=== PATIENT | female | born 1960 | race Caucasian/White ===

== ENCOUNTER 2022-08-04 07:53 | Outpatient (OUT) | payer OTHER, SELFPAY | END 2022-08-04 07:54 | disposition home or self-care (01) | LOC: INF 07:53 | PROVIDERS: PCP Nurse Practitioner; Visit Provider Internal Medicine Hematology & Oncology | DX: D69.3 Immune thrombocytopenic purpura (principal) | CPT/HCPCS: G0463 ==

== ENCOUNTER 2022-08-18 07:37 | Outpatient (OUT) | payer OTHER, SELFPAY ==
--- NOTE | 2022-08-18 16:52 | PC.NURSE ---
0900: Pt. to [facility] for Lovenox education after office visit with Dr. Noonan. Video presentation and discussion provided to patient and patient's on self injections of Lovenox. Questions addressed.
== END 2022-08-18 07:38 | disposition home or self-care (01) ==
LOC: INF 07:37
PROVIDERS: PCP Nurse Practitioner; Visit Provider Internal Medicine Hematology & Oncology
DX: D69.3 Immune thrombocytopenic purpura (principal)
CPT/HCPCS: G0463

== ENCOUNTER 2022-09-15 08:31 | Outpatient (OUT) | payer OTHER, SELFPAY ==
[2022-09-15 09:07] LABS: Basophils Absolute Auto 0.1 10^3/uL (0.0-0.1); Basophils Percent Auto 0.6 % (0.2-2.0); Eosinophils Absolute Auto 0.1 10^3/uL (0.0-0.7); Eosinophils Percent Auto 0.7 % (0.9-7.0); Hematocrit 38.3 % (36.0-48.0); Hemoglobin 12.8 g/dL (12.0-16.0); Immature Granulocytes Abs Auto 0.04 10^3/uL (0.00-0.03); Immature Granulocytes Pct Auto 0.3 % (0.0-0.5); Lymphocytes Absolute Auto 4.1 10^3/uL (1.2-3.8); Lymphocytes Percent Auto 33.3 % (20.5-60.0); Mean Corpuscular HGB Conc 33.4 g/dL (29.9-35.2); Mean Corpuscular Hemoglobin 31.3 pg (26.7-34.0); Mean Corpuscular Volume 93.6 fL (81.0-99.0); Mean Platelet Volume 9.8 fL (9.5-13.5); Monocytes Absolute Auto 0.8 10^3/uL (0.3-0.8); Monocytes Percent Auto 6.8 % (1.7-12.0); Neutrophils Absolute Auto 7.1 10^3/uL (1.4-6.5); Neutrophils Percent Auto 58.3 % (43.0-75.0); Platelet Count 655 10^3/uL (150-450); Red Blood Count 4.09 10^6/uL (4.20-5.40); Red Cell Distribution Width 13.9 % (11.0-15.0); White Blood Count 12.2 10^3/uL (4.0-11.0)
== END 2022-09-15 08:32 | disposition home or self-care (01) ==
LOC: INF 08:31
PROVIDERS: PCP Nurse Practitioner; Visit Provider Internal Medicine Hematology & Oncology
DX: D69.3 Immune thrombocytopenic purpura (principal); Z86.2 Personal history of diseases of the blood and blood-forming organs and certain disorders involving the immune mechanism
CPT/HCPCS: 36415; 85025; G0463

== ENCOUNTER 2022-10-20 07:58 | Outpatient (OUT) | payer OTHER, SELFPAY ==
[2022-10-20 08:15] LABS: Basophils Percent Auto 0.3 % (0.2-2.0); Eosinophils Absolute Auto 0.1 10^3/uL (0.0-0.7); Eosinophils Percent Auto 0.8 % (0.9-7.0); Hemoglobin 14.4 g/dL (12.0-16.0); Immature Granulocytes Abs Auto 0.02 10^3/uL (0.00-0.03); Immature Granulocytes Pct Auto 0.2 % (0.0-0.5); Lymphocytes Absolute Auto 2.9 10^3/uL (1.2-3.8); Lymphocytes Percent Auto 28.6 % (20.5-60.0); Mean Corpuscular HGB Conc 32.7 g/dL (29.9-35.2); Mean Corpuscular Hemoglobin 32.5 pg (26.7-34.0); Mean Corpuscular Volume 99.3 fL (81.0-99.0); Mean Platelet Volume 9.7 fL (9.5-13.5); Monocytes Absolute Auto 0.7 10^3/uL (0.3-0.8); Monocytes Percent Auto 6.5 % (1.7-12.0); Neutrophils Absolute Auto 6.4 10^3/uL (1.4-6.5); Neutrophils Percent Auto 63.6 % (43.0-75.0); Platelet Count 380 10^3/uL (150-450); Red Blood Count 4.43 10^6/uL (4.20-5.40); Red Cell Distribution Width 15.6 % (11.0-15.0)
[2022-10-20 08:20] LABS: Erythrocyte Sedimentation Rate 54 mm/hr (<=30)
[2022-10-20 08:28] LABS: C Reactive Protein 0.2 mg/dL (<=1.0); Lactate Dehydrogenase 125 U/L (81-234)
== END 2022-10-20 07:59 | disposition home or self-care (01) ==
LOC: HEMC 07:58
PROVIDERS: PCP Nurse Practitioner; Visit Provider Internal Medicine Hematology & Oncology
DX: D69.3 Immune thrombocytopenic purpura (principal)
CPT/HCPCS: 36415; 83615; 85025; 85652; 86140; G0463

== ENCOUNTER 2022-11-23 08:56 | Outpatient (OUT) | payer OTHER, SELFPAY ==
--- NOTE | 2022-11-23 10:43 | PM.CN ---
Consult Note: HPI Data of Consult Patient: new to practice Consult date: 11/23/22 Requesting Physician: Lara Mar MD Primary Care Provider: Gayla Martinez Consult Narrative Reason for consult: low back pain Narrative: 62yof who presents for assessment. worsening low back pain that has been ongoing for years. recently underwent lumbar surgery in july 2022, which helped with radicular symptoms. still has significant low back pain. utilizes tylenol with codeine as needed. denies adverse med side effects. cc:: CC: Lara Mar MD Review of Systems ROS Status of ROS 10 or more systems reviewed and unremarkable except as noted in history and below Exam Narrative Exam Narrative: Psych-alert and oriented x 3. Attentive and appropriate, constitutionally normal, displays normal mood and affect per situation.? There are no obvious deficits in memory, reasoning, or intellect.? Skin-no obvious rashes, bruising, erythema noted to the patient's area of pain. Extremities- extremities are warm with minimal edema and palpable pulses. Lumbar-no significant tenderness to palpation noted in the lumbar spine and paraspinal musculature.? Pain is elicited with extension, and lateral rotation of the lumbar spine. Range of motion is slightly diminished with these motions due to pain. Facet loading maneuvers are positive bilaterally and do appear to be concordant with the patient's normal complaints of pain.? Coordination remains intact.? Gait remains non-antalgic. Assessment and Plan Assessment and Plan (1) Lumbar stenosis with neurogenic claudication: (2) Lumbar spondylosis: Plan 62yof who presents for evaluation. failed conservative measures, as reviewed. given symptoms and recent surgery, will have her engage in aqua therapy twice weekly for 4-6 weeks. she is in agreement. medications reviewed, no changes at this time. follow up in 6-8 weeks.
== END 2022-11-23 08:57 | disposition home or self-care (01) ==
LOC: PM 08:56
PROVIDERS: PCP Nurse Practitioner; Visit Provider Anesthesiology
DX: M47.816 Spondylosis without myelopathy or radiculopathy, lumbar region (principal); M48.062 Spinal stenosis, lumbar region with neurogenic claudication
CPT/HCPCS: G0463

== ENCOUNTER 2022-11-25 13:33 | Outpatient (RCR) | payer OTHER, SELFPAY | END 2023-02-21 07:58 | disposition home or self-care (01) | LOC: PT 13:33 | PROVIDERS: PCP Nurse Practitioner; Visit Provider Anesthesiology | DX: M48.062 Spinal stenosis, lumbar region with neurogenic claudication (principal) | CPT/HCPCS: 97110; 97112; 97113; 97163; 97164; 97530 ==

== ENCOUNTER 2022-12-03 09:53 | Outpatient (OUT) | payer OTHER, SELFPAY ==
--- NOTE | 2022-12-03 | MM_ITS ---
Patient: SHELLEY VAUGHN Exam Date: 12/03/2022 : 1960 Gender:F Ordering : GAURAV Gaylaflavio Martinez [facility] Admission #: [id number] Family : Order #: [id number] CLICK HERE TO VIEW EXAM RADIOLOGY REPORT PROCEDURE: MM TOMOSYNTHESIS SCREENING BI COMPARISON: None. INDICATIONS: Screening mammogram Calculator Name NCI Breast Cancer Risk Assessment Tool 5 Year Breast Cancer Risk 1.70% Lifetime Breast Cancer Risk 7.70% Personal Breast Cancer No Personal Ovarian Cancer No Treatments None Family Cancers None LOCATION: [facility] BREAST COMPOSITION: Scattered areas fibroglandular density. FINDINGS: DIAGNOSTIC CATEGORY 2--BENIGN FINDING: RIGHT BREAST: No significant suspicious finding. Scattered benign-appearing calcifications are present. LEFT BREAST: No significant suspicious finding. Scattered benign-appearing calcifications are present. RECOMMENDATIONS: ROUTINE MAMMOGRAM AND CLINICAL EVALUATION IN 12 MONTHS. PLEASE NOTE: A NORMAL MAMMOGRAM DOES NOT EXCLUDE THE POSSIBILITY OF BREAST CANCER. A CLINICALLY SUSPICIOUS PALPABLE LUMP SHOULD BE BIOPSIED. Dictated by: Marc Munoz M.D. on 12/03/2022 at 13:35 Approved by: Marc Munoz M.D. on 12/03/2022 at 13:38
[2022-12-03 10:40] LABS: Estimated Average Glucose 117 mg/dL; Glycohemoglobin A1C 5.7 % (4.5-6.2)
== END 2022-12-03 09:54 | disposition home or self-care (01) ==
LOC: MAMMO 09:53
PROVIDERS: PCP Nurse Practitioner; Visit Provider Nurse Practitioner
DX: Z12.31 Encounter for screening mammogram for malignant neoplasm of breast (principal); E11.9 Type 2 diabetes mellitus without complications
CPT/HCPCS: 36415; 77063; 77067; 83036

== ENCOUNTER 2023-01-21 08:51 | Outpatient (OUT) | payer OTHER, SELFPAY ==
--- NOTE | 2023-01-21 09:31 | PM.CN ---
Consult Note: HPI Data of Consult Patient: known to practice within the last 3 years Requesting Physician: Lara Mar MD Primary Care Provider: Gayla Martinez Consult Narrative Reason for consult: f/u Narrative: Stephan muniz pleasant 62 year old female presents for evaluation and management of chronic back pain. Today pain 7/10 in right low back, feels like a deep ache. Patient has a hx of L3,4,5 fusion. Patient to start bone stimulator today through surgeon. Patient has found benefit to current medication regimen, no side effects. cc:: CC: Lara Mar MD Review of Systems ROS Status of ROS 10 or more systems reviewed and unremarkable except as noted in history and below Musculoskeletal Reports: back pain Meds Home Medications and Allergies Home Medications Medication Instructions Recorded Confirmed Type amitriptyline 10 mg tablet 10 mg PO DAILY 11/23/22 01/21/23 History atorvastatin 20 mg tablet 20 mg PO DAILY 11/23/22 11/23/22 History ferrous sulfate 325 mg (65 mg 325 mg PO DAILY 11/23/22 11/23/22 History iron) tablet (FeroSul) fluticasone fur. 100 mcg-umeclid 1 inh inhalation DAILY 11/23/22 11/23/22 History 62.5 mcg-vilant 25 mcg inhalat.powder (Trelegy Ellipta) lisinopril 2.5 mg tablet 2.5 mg PO DAILY 11/23/22 11/23/22 History metformin 500 mg tablet 500 mg PO BID 11/23/22 11/23/22 History tizanidine 4 mg capsule 4 mg PO BID PRN muscle spasticity 11/23/22 01/21/23 History tramadol 50 mg tablet 50 mg PO Q12H 01/21/23 01/21/23 History Allergies Allergy/AdvReac Type Severity Reaction Status Date / Time No Known Drug Allergies Allergy Verified 11/23/22 14:05 Exam Constitutional Documenting provider has reviewed patient's vital signs: yes Common normals: no apparent distress, oriented x3, healthy appearing, alert and well nourished General appearance: cooperative HENMT Common normals: normocephalic, hearing grossly normal bilaterally and moist oral mucous membranes Head and scalp: normocephalic Eye Common normals: PERRL Pupil: PERRL Neck & C-Spine Common normals: full ROM General: normal visual inspection Chest Common normals: inspection of chest normal Respiratory Common normals: normal respiratory effort, no retractions and no use of accessory muscles Back & Pelvis Lumbar spine/lower back: ROM limited and pain with ROM Other: facet loading bilateral no radiculopathy Neuro Common normals: oriented x3, CN's II-XII intact bilaterally, moves all extremities, no focal motor deficits, no sensory deficits noted and deep tendon reflexes 2+ bilaterally Sensorium/orientation: alert Motor exam: strength 5/5 throughout and no movement abnormalities noted Psych Common normals: mental status grossly normal, thought process normal, cooperative, affect normal, speech normal and activity/motor behavior normal Speech: normal speech Thought process: normal thought process Results Additional Findings Additional findings: I have checked an [place]AR[place] report on this patient today and there are no aberrancies noted in the prescribing history.?? A drug screen was completed and reviewed within the last year, and if there has not been a drug screen completed we ordered one today to monitor higher risk, state monitored pain medication use. As part of providing excellent, safe, comprehensive care, the following was completed at our patient's visit: 1. A medication reconciliation and review to ensure accurate knowledge of current/active medications, including asking our patients to inform us about any yopd-dat-dgnltpo medications or herbal remedies/nutritional supplements/alternative remedies. 2. A review to specifically ensure our patients have had annual screening for: elevated body mass index (BMI), tobacco use, screening for depression, and screening for unhealthy alcohol use. When screening is concerning, patients are provided with education and the specific recommendation to discuss the concerning health issue and treatment options with their primary care provider. Assessment and Plan Assessment and Plan (1) Chronic prescription opiate use: (2) Lumbar spondylosis: (3) Lumbar stenosis with neurogenic claudication: (4) Muscle spasm: Plan -continue current medications -increase amitriptyline to 25mg HS, patient thinks PCP just increased but she is unsure -pt to start Bone stimulator as ordered through surgeon -f/u 3 months
== END 2023-01-21 08:52 | disposition home or self-care (01) ==
LOC: PM 08:51
PROVIDERS: PCP Nurse Practitioner; Visit Provider Anesthesiology
DX: Z79.891 Long term (current) use of opiate analgesic (principal); M47.816 Spondylosis without myelopathy or radiculopathy, lumbar region; M48.062 Spinal stenosis, lumbar region with neurogenic claudication; M62.838 Other muscle spasm
CPT/HCPCS: G0463

== ENCOUNTER 2023-02-22 10:23 | Outpatient (RCR) | payer OTHER, SELFPAY | END 2023-02-23 15:14 | disposition home or self-care (01) | LOC: PT 10:23 | PROVIDERS: PCP Nurse Practitioner; Visit Provider Anesthesiology | DX: Z98.1 Arthrodesis status (principal); M41.50 Other secondary scoliosis, site unspecified ==

== ENCOUNTER 2023-03-03 15:52 | Outpatient (OUT) | payer OTHER, SELFPAY ==
--- OUTSIDE RECORDS SUMMARY | 2023-03-03 15:58 | XMS_ITS | CCD ---
Author Name Unknown Address [address] [place] [address] Organization [facility] Care Team Providers Care Stocklayer Name Role Phone ALGHOEVELINEANI MOHAMAD Attending Unavailable AICHHOLZ, LOCKSTITCH COLLAR SETTER GAYLA Primary Care Unavailable ALGHOTHANI, MOHAMAD Consulting Unavailable ALGHOTHANI, MOHAMAD Admitting Unavailable AICHHOLZ, LOCKSTITCH COLLAR SETTER GAYLA Primary Care Unavailable AICHHOLZ, LOCKSTITCH COLLAR SETTER GAYLA Admitting Unavailable AICHHOLZ, LOCKSTITCH COLLAR SETTER GAYLA Attending Unavailable AICHHOLZ, LOCKSTITCH COLLAR SETTER GAYLA Consulting Unavailable ALGHOTHANI, MOHAMAD Attending Unavailable AICHHOLZ, LOCKSTITCH COLLAR SETTER GAYLA Primary Care Unavailable ALGHOTHANI, MOHAMAD Consulting Unavailable ALGHOTHANI, MOHAMAD Admitting Unavailable ALGHOTHANI, MOHAMAD Attending Unavailable AICHHOLZ, LOCKSTITCH COLLAR SETTER GAYLA Primary Care Unavailable ALGHOTHANI, MOHAMAD Consulting Unavailable ALGHOTHANI, MOHAMAD Admitting Unavailable ALEX, INA Attending Unavailable ALEX, INA Admitting Unavailable ALEX, INA Consulting Unavailable AICHHOLZ, LOCKSTITCH COLLAR SETTER GAYLA Primary Care Unavailable AICHHOLZ, LOCKSTITCH COLLAR SETTER GAYLA Admitting Unavailable AICHHOLZ, LOCKSTITCH COLLAR SETTER GAYLA Attending Unavailable AICHHOLZ, LOCKSTITCH COLLAR SETTER GAYLA Consulting Unavailable AICHHOLZ, LOCKSTITCH COLLAR SETTER GAYLA Primary Care Unavailable AICHHOLZ, LOCKSTITCH COLLAR SETTER GAYLA Admitting Unavailable AICHHOLZ, LOCKSTITCH COLLAR SETTER GAYLA Attending Unavailable AICHHOLZ, LOCKSTITCH COLLAR SETTER GAYLA Consulting Unavailable AICHHOLZ, LOCKSTITCH COLLAR SETTER GAYLA Primary Care Unavailable DANTE HAND Attending Unavailable ALEX, INA Attending Unavailable ALEX, INA Attending Unavailable AICHHOLZ, GAYLA Attending Unavailable Tylor KAMARA MD, Delfino Freeman Attending U kasey Snider III, MD, Delfino Freeman Attending U kasey Mar MD, Lara Amos Attending Unavailable King MICHELLE, Dasha Pedro Attending Unavailab le Edilson PA-C, Dasha Pedro Attending Unavailab le Edilson PA-C, Dasha Pedro Attending Unavailab le Edilson PA-C, Dasha Pedro Attending Unavailab le Edilson PA-C, Dasha Pedro Attending Unavailab rose Snider III, MD, Delfino Freeman Attending U navailable Tylor KAMARA MD, Delfino Freeman Admitting U navailable Edilson PA-C, Dasha Pedro Attending Unavailab le Edilson PA-C, Dasha Pedro Attending Unavailab le Edilson PA-C, Dasha Pedro Attending Unavailab le Edilson PA-C, Dasha Pedro Attending Unavailab le Edilson PA-C, Dasha Pedro Attending Unavailab rose Snider III, MD, Delfino Freeman Attending U navailable Allergies Allergy Classification Reported Allergen(s) Allergy Type Date of Onset Reaction(s) Facility (1 source) pregabalin; Translations: [PREGABALIN] Drug Allergy [facility] Repository (1 source) No Known Medication Allergies; Translations: [No Known Medication Allergies] Propensity to adverse reactions to drug (disorder) [facility] Repository Problems Active Problems Problem Classification Problem Date Documented Da te Episodic/Chronic Diabetes mellitus without complication (6 sources) Type 2 diabetes mellitus without complications; Translations: [Other specified diabetes mellitus without complications] Onset: 11-05-2021 Chronic Essential hypertension (6 sources) Essential (primary) hypertension; Translations: [ESSENTIAL PRIMARY HYPERTENSION] Onset: 06-10-2022 Chronic Pleurisy; pneumothorax; pulmonary collapse (4 sources) Pleural effusion, not elsewhere classified; Translations: [PLEURAL EFFUSION NEC] Onset: 05-08-2022 Episodic Unclassified (3 sources) OTH PERICARDIAL EFFUSION NONINFLAMM; Translations: [OTH PERICARDIAL EFFUSION NONINFLAMM] Onset: 01-08-2022 Unclassified (1 source) Other pericardial effusion (noninflammatory); Translations: [Other pericardial effusion (noninflammatory)] Onset: 06-10-2022 Past or Other Problems Problem Classification Problem Date Documented Da te Episodic/Chronic Other nutritional; endocrine; and metabolic disorders (4 sources) Abnormal weight loss; Translations: [ABNORMAL WEIGHT LOSS] Onset: 08-04-2021 Episodic Vladimir-; endo-; and myocarditis; cardiomyopathy (except that caused by tuberculosis or sexually transmitted disease) (4 sources) Pericardial effusion (noninflammatory); Translations: [PERICARDIAL EFFUSION NONINFLAMM] Onset: 10-16-2021 Episodic Spondylosis; intervertebral disc disorders; other back problems (2 sources) Spinal stenosis, lumbar region with neurogenic claudication; Translations: [Spinal stenosis, lumbar region with neurogenic claudication] Onset: 08-21-2022 Episodic Unclassified (1 source) OTH PERICARDIAL EFFUSION NONINFLAMM; Translations: [OTH PERICARDIAL EFFUSION NONINFLAMM] Onset: 01-05-2022 Unclassified (1 source) Other pericardial effusion (noninflammatory); Translations: [Other pericardial effusion (noninflammatory)] Onset: 01-19-2023 Results Test Name Value Interpretation Reference Range Facility Neurosurgery Office/Clinic N zain 02-08-2023 Neurosurgery Office/Clinic Note Chief Complaint Back follow up imaging review History of Present Illness The patient is a pleasant 63-year-old female with history of diabetes, COPD, and chronic nicotine abuse who returns to the neurosurgical office approximately 6 months status post L3-5 decompression and posterior spinal fusion with instrumentation utilizing Medtronic Osteogrip screws, interbody arthrodesis L4-5 using TLIF technique and Medtronic elevate expandable cage. Small kit infuse bone morphogenetic protein used at the time of surgery. Surgery was completed 08/21/[address] nSider on behalf of of intractable lumbar radiculopathy and neurogenic claudication related to severe spinal stenosis L3-4 and L4-5 with degenerative spondylolisthesis L4-5 with instability. Postoperative x-rays 1 month following surgery revealed suspicion of L5 pedicle fractures which was then confirmed with CT. The patient was last seen in the neurosurgical office 12/22/2022 and returns today for ongoing clinical and imaging surveillance. She has recently undergone updated CT lumbar spine. Results detailed below. At this time, the patient reports that she is doing relatively well. She continues to report low back pain which is more right-sided than left and typically with standing in the kitchen at the stove or countertop. This improves quickly with sitting. She also notes burning/aching within the gluteal areas and lateral hips which is relatively constant though can increase somewhat with activity. She denies lower extremity radicular pain, numbness, paresthesia or overt weakness. She continues to walk with the assistance of a cane when outside of her home though is able to walk without a cane within her home. She denies any changes to bowel or bladder habits; no saddle paresthesia. The patient has been completing aqua therapy twice a week and traditional therapy once weekly with overall good benefit. She reports that she has utilized all sessions and requires a another physical therapy order. She continues to utilize her LSO brace with sitting, standing and walking in addition to her electromagnetic bone stimulator. She utilizes tramadol and tizanidine as provided by pain management ([facility] pain management) only as needed and has not yet returned to NSAID medication. She continues to utilize nicotine and understands the deleterious effects of nicotine on her overall health and bony arthrodesis. Recent imaging (provider interpretation): CT lumbar spine 02/03/2023 at [facility] reveals evidence of L3-5 posterior spinal fusion with instrumentation and L4-5 interbody fusion. No evidence of hardware haloing, fracture or pullout. Fixed anterior listhesis L4-5 which is unchanged. Bilateral L5 pedicle fractures appear well-healed. There appears to be a fair amount more consolidation of posterior lateral arthrodesis compared to prior imaging 12/17/2022 and 10/14/2022. Moderate left L5-S1 neuroforaminal stenosis secondary to bony spurring. L1-2 reveals a central/left paracentral disc osteophyte complex with moderate central stenosis. L2-3 reveals a central disc osteophyte complex with moderate central stenosis. CT lumbar spine 12/17/2022 reveals evidence of L3-5 posterior spinal fusion with instrumentation and L4-5 interbody fusion. No evidence of hardware fracture or pullout. L5 pedicle fractures appear to be healing appropriately without significant evidence of fracture line. Fair amount of posterior lateral arthrodesis though there are some areas of incomplete consolidation. Retrolisthesis L1-2 and L2-3 with disc spur complex at each level unchanged from prior imaging. CT lumbar spine 10/14/2022 at [facility] reveals evidence of L3-5 decompression and posterior spinal fusion with instrumentation and L4-5 interbody fusion. No evidence of hardware fracture or pullout though there is evidence of bilateral L5 pedicle fractures without significant displacement. Also question of L4 transverse process fractures. There is a fair amount of posterior lateral arthrodesis considering her 7-week postoperative. Lumbar x-rays 09/18/2022 reveal evidence of L3-5 decompression and posterior spinal fusion with instrumentation and L4-5 interbody fusion. No evidence of hardware fracture, pullout or overt healing though there does appear to be slight abnormal angulation of the L5 pedicles which could point towards pedicle fracture. X-rays of the sacrum/coccyx 09/18/2022 reveal no evidence of sacral or coccygeal fracture. Evidence of L3-5 decompression and posterior spinal fusion with instrumentation and interbody fusion at L4-5. No overt hardware concern or abnormality. [1] Review of Systems Constitutional: [No fevers, chills, sweats] Eye: [No recent visual problems] ENMT: [No ear pain, nasal congestion, sore throat] Respiratory: [No shortness of breath, cough] Cardiovascular: [No Chest pain, palpitations, syncope] Gastrointestinal: [No nausea, vomiting, diarrhea, bowel incontinence] Genitourinary: [No hematuria, bladder inc (more content not included)... Normal [facility] Office Visiton 01-19-2023 Follow-up visit [id number] James López 1960 F Date Provider Department Center 01/19/2023 [facility] Family History Problem Relation Age of Onset Other Mother Heart attack Father Other Father Other Father Other Maternal Grandmother Family Status - Relation Status Age at Mother Father Maternal Grandmother Level of Service:[address] [place] OFFICE/OUTPATIENT ESTABLISHED LOW MDM 20-29 MIN Reason for Visit and Comments: Follow-up [607423] Hypertension [758311] Normal [facility] Neurosurgery Office/Clinic N oteon 12-22-2022 Neurosurgery Office/Clinic Note Chief Complaint back follow up History of Present Illness The patient is a pleasant 62-year-old female with history of diabetes, COPD, and chronic nicotine abuse who returns to the neurosurgical office approximately 4 months status post L3-5 decompression and posterior spinal fusion with instrumentation utilizing Medtronic Osteogrip screws, interbody arthrodesis L4-5 using TLIF technique and Medtronic elevate expandable cage. Small kit infuse bone morphogenetic protein used at the time of surgery. Surgery was completed 08/21/[address] Snider on behalf of of intractable lumbar radiculopathy and neurogenic claudication related to severe spinal stenosis L3-4 and L4-5 with degenerative spondylolisthesis L4-[address] of the lumbar spine completed 10/14/2022 due to ongoing prominent postoperative lumbar pain revealed presence of bilateral L5 pedicle fractures without displacement. She was last seen in the neurosurgical office 11/26/2022 and returns today having undergone updated CT lumbar spine. Results detailed below. At this time, the patient feels that she is doing fairly well. She continues to report low back pain which is most prominent when standing in the kitchen at her countertops. When doing this activity, she finds that she cannot stand for more than 3 or so minutes at a time. Once she sits down for approximately 10 minutes or so, pain resolves to baseline. She also notes some tightness/achiness in the lateral hips. She is most comfortable with sitting or laying down, particularly laying on her side with knees bent. She denies lower extremity radicular pain, numbness, paresthesia or overt weakness. She continues to walk with the assistance of a cane. She denies any changes to bowel or bladder habits; no saddle paresthesia. Since the time of her last visit, she has initiated water therapy despite recommendations from this office to hold on any therapy modalities until after most recent imaging could be completed and reviewed. She has been utilizing aqua therapy 3 times per week with good benefit. Per the patient, she is planned to transition into machine type physical therapy once a week in addition to aqua therapy 2 times per week. She follows with [facility] pain management which is a transition from [facility] pain management group. She continues to smoke cigarettes and understands the deleterious effects of nicotine on her overall health and bony arthrodesis. Recent imaging (provider interpretation): CT lumbar spine 12/17/2022 reveals evidence of L3-5 posterior spinal fusion with instrumentation and L4-5 interbody fusion. No evidence of hardware fracture or pullout. L5 pedicle fractures appear to be healing appropriately without significant evidence of fracture line. Fair amount of posterior lateral arthrodesis though there are some areas of incomplete consolidation. Retrolisthesis L1-2 and L2-3 with disc spur complex at each level unchanged from prior imaging. CT lumbar spine 10/14/2022 at [facility] reveals evidence of L3-5 decompression and posterior spinal fusion with instrumentation and L4-5 interbody fusion. No evidence of hardware fracture or pullout though there is evidence of bilateral L5 pedicle fractures without significant displacement. Also question of L4 transverse process fractures. There is a fair amount of posterior lateral arthrodesis considering her 7-week postoperative. Lumbar x-rays 09/18/2022 reveal evidence of L3-5 decompression and posterior spinal fusion with instrumentation and L4-5 interbody fusion. No evidence of hardware fracture, pullout or overt healing though there does appear to be slight abnormal angulation of the L5 pedicles which could point towards pedicle fracture. X-rays of the sacrum/coccyx 09/18/2022 reveal no evidence of sacral or coccygeal fracture. Evidence of L3-5 decompression and posterior spinal fusion with instrumentation and interbody fusion at L4-5. No overt hardware concern or abnormality. [1] Review of Systems Constitutional: [No fevers, chills, sweats] Eye: [No recent visual problems] ENMT: [No ear pain, nasal congestion, sore throat] Respiratory: [No shortness of breath, cough] Cardiovascular: [No Chest pain, palpitations, syncope] Gastrointestinal: [No nausea, vomiting, diarrhea, bowel incontinence] Genitourinary: [No hematuria, bladder incontinence] Physical Exam Vitals & Measurements BP: 124/70 SpO2: 96 HT: 167.5 cm WT: 63.7 kg WT: 63.7 kg (Dosing) BMI: 22.7 Additional Vitals BP Position/Location: Sitting, Left arm The patient is pleasant, conversing, answering questions and following commands easily. Alert and oriented. Speech and manner are appropriate. The patient demonstrates normal respiratory effort She presents in [facility] brace with proper fit and alignment. This was removed at the time of today's visit for incision evaluation. Lumbosacral incision appears well-healed and without erythema, edema, drainage or warmth. She notes mild tenderness (more content not included)... Normal [facility] Neurosurgery Office/Clinic N oteon 11-26-2022 Neurosurgery Office/Clinic Note Chief Complaint Back f/u -imaging-OR on 08/21/22 History of Present Illness The patient is a pleasant 62-year-old female with history of diabetes, COPD, and chronic nicotine abuse who returns to the neurosurgical office for a postoperative visit. She is approximately 12-13 weeks status post L3-5 decompression and posterior spinal fusion with instrumentation utilizing Medtronic Osteogrip screws, interbody arthrodesis L4-5 using TLIF technique and Poachable elevate expandable cage. Small kit infuse bone morphogenetic protein used at the time of surgery. Surgery was completed 08/21/[address] Snider on behalf of of intractable lumbar radiculopathy and neurogenic claudication related to severe spinal stenosis L3-4 and L4-5 with degenerative spondylolisthesis L4-5 with instability. Most recent CT of the lumbar spine completed 10/14/2022 due to ongoing prominent postoperative lumbar pain revealed presence of bilateral L5 pedicle fractures without displacement. She was last seen in the neurosurgical office 10/15/2022 and returns today for ongoing postoperative surveillance. She was planned to undergo repeat CT lumbar spine prior to today's visit though unfortunately this was denied by insurance. Currently, the patient reports ongoing low back pain which she describes as a 4/10 on the pain scale. This exacerbates and becomes particularly bothersome with standing still such as at her stove to make a meal. When this happens, she will typically attempt to sit down with pain resolving to baseline after approximately 10 to 15 minutes. She notes some increase in pain when walking though this is less severe than standing still. She is able to walk around the grocery store with a small cart without severe difficulty. She is relatively comfortable sitting and laying albeit with some persistent low back pain. She notes occasional short-lived pain in the legs though otherwise reports resolution of lower extremity pain, numbness and paresthesia. She denies any changes to bowel or bladder habits; no saddle paresthesia. The patient continues to smoke which she understands is deleterious to bony arthrodesis as well as her overall health. The patient reports that she recently transferred pain management care from [facility] to [facility]. Per the patient, they eventually would like her to initiate hot water physical therapy though only after receiving clearance from this office. Recent imaging (provider interpretation): CT lumbar spine 10/14/2022 at [facility] reveals evidence of L3-5 decompression and posterior spinal fusion with instrumentation and L4-5 interbody fusion. No evidence of hardware fracture or pullout though there is evidence of bilateral L5 pedicle fractures without significant displacement. Also question of L4 transverse process fractures. There is a fair amount of posterior lateral arthrodesis considering her 7-week postoperative. Lumbar x-rays 09/18/2022 reveal evidence of L3-5 decompression and posterior spinal fusion with instrumentation and L4-5 interbody fusion. No evidence of hardware fracture, pullout or overt healing though there does appear to be slight abnormal angulation of the L5 pedicles which could point towards pedicle fracture. X-rays of the sacrum/coccyx 09/18/2022 reveal no evidence of sacral or coccygeal fracture. Evidence of L3-5 decompression and posterior spinal fusion with instrumentation and interbody fusion at L4-5. No overt hardware concern or abnormality. [1] Review of Systems Constitutional: [No fevers, chills, sweats] Eye: [No recent visual problems] ENMT: [No ear pain, nasal congestion, sore throat] Respiratory: [No shortness of breath, cough] Cardiovascular: [No Chest pain, palpitations, syncope] Gastrointestinal: [No nausea, vomiting, diarrhea, bowel incontinence] Genitourinary: [No hematuria, bladder incontinence] Physical Exam Vitals & Measurements BP: 130/84 HT: 167.5 cm WT: 63.7 kg WT: 63.7 kg (Dosing) BMI: 22.7 Additional Vitals BP Position/Location: Sitting, Right arm The patient is pleasant, conversing, answering questions and following commands easily. Alert and oriented. Speech and manner are appropriate. The patient demonstrates normal respiratory effort She presents in [facility] lock brace with proper fit and alignment. This was removed at the time of today's visit for incision evaluation. Lumbosacral incision appears well-healed and without erythema, edema, drainage or warmth. She notes mild tenderness to palpation of the upper to mid vladimir-incisional area/lumbar spine tender as well as throughout the paraspinal musculature. She finds tenderness to palpation throughout the gluteal muscles as well as the ischial tuberosity. Lower extremity motor exam reveals 5/5 strength, symmetric bilaterally. Lower extremity deep tendon reflexes 2+ at the patella, 1+ at the Achilles, symmetric bilaterally. No clonus noted bilaterally. The patient reports intact light touch sensation throughout the lower extre (more content not included)... Normal [facility] Neurosurgery Office/Clinic N zain 10-15-2022 Neurosurgery Office/Clinic Note Chief Complaint post op 08/21/22 L3-5 decompression & spinal fusion History of Present Illness The patient is a pleasant 62-year-old female with history of diabetes, COPD, and chronic nicotine abuse who returns to the neurosurgical office for a postoperative visit. She is approximately 7 weeks status post L3-5 decompression and posterior spinal fusion with instrumentation utilizing Medtronic Osteogrip screws, interbody arthrodesis L4-5 using TLIF technique and Medtronic elevate expandable cage. Small kit infuse bone morphogenetic protein used at the time of surgery. Surgery was completed 08/21/[address] Snider on behalf of of intractable lumbar radiculopathy and neurogenic claudication related to severe spinal stenosis L3-4 and L4-5 with degenerative spondylolisthesis L4-5 with instability. Currently, the patient reports resolution of lower extremity pain, numbness and paresthesia though reports ongoing low back pain which is most prominent with standing and walking. She is relatively comfortable with sitting or laying down. She admits to laying on her couch for a majority of the time though does get up to move around such as going to the bathroom or making a small meal. She has been driving only short distances to the grocery store or the pharmacy though typically relies on rides for longer distances such as to her doctors appointments. She has been utilizing her brace only on occasion as she finds this rather constricting and induces her claustrophobia. That being said, as she predominately restricts herself to lying on the couch (patient has not required to wear brace when laying down) she does not feel that she has spent a lot of excess time out of her brace. She denies any incisional issues such as redness, swelling, warmth or drainage. She is eating fairly well and denies nausea or vomiting. She denies any changes to bowel or bladder habits; no saddle paresthesia. She denies pain, swelling, warmth or redness in the posterior calves. She continues to smoke which she understands is deleterious to bony arthrodesis as well as her overall health. Recent imaging (provider interpretation): CT lumbar spine 10/14/2022 at [facility] reveals evidence of L3-5 decompression and posterior spinal fusion with instrumentation and L4-5 interbody fusion. No evidence of hardware fracture or pullout though there is evidence of bilateral L5 pedicle fractures without significant displacement. Also question of L4 transverse process fractures. There is a fair amount of posterior lateral arthrodesis considering her 7-week postoperative. Lumbar x-rays 09/18/2022 reveal evidence of L3-5 decompression and posterior spinal fusion with instrumentation and L4-5 interbody fusion. No evidence of hardware fracture, pullout or overt healing though there does appear to be slight abnormal angulation of the L5 pedicles which could point towards pedicle fracture. X-rays of the sacrum/coccyx 09/18/2022 reveal no evidence of sacral or coccygeal fracture. Evidence of L3-5 decompression and posterior spinal fusion with instrumentation and interbody fusion at L4-5. No overt hardware concern or abnormality. Review of Systems Constitutional: [No fevers, chills, sweats] Eye: [No recent visual problems] ENMT: [No ear pain, nasal congestion, sore throat] Respiratory: [No shortness of breath, cough] Cardiovascular: [No Chest pain, palpitations, syncope] Gastrointestinal: [No nausea, vomiting, diarrhea, bowel incontinence] Genitourinary: [No hematuria, bladder incontinence] Physical Exam Vitals & Measurements HR: 105 (Peripheral) BP: 124/66 SpO2: 96 HT: 167.5 cm WT: 64.9 kg WT: 64.9 kg (Dosing) BMI: 23.13 Additional Vitals BP Position/Location: Sitting, Right arm The patient is pleasant, conversing, answering questions and following commands easily. Alert and oriented. Speech and manner are appropriate. The patient demonstrates normal respiratory effort Lumbosacral incision appears well-healed and without erythema, edema, drainage or warmth. She denies tenderness to palpation of the vladimir-incisional area or lumbosacral spine though finds to be tender to palpation throughout the paraspinal musculature at the lumbosacral junction and gluteal muscles as well as laterally to the hips. Lower extremity motor exam reveals 5/5 strength, symmetric bilaterally. Lower extremity deep tendon reflexes 2+ at the patella, 1+ at the Achilles, symmetric bilaterally. No clonus noted bilaterally. The patient reports intact light touch sensation throughout the lower extremities, symmetric bilaterally. Straight leg raise leads to tension in the gluteal areas and lateral calves of the ipsilateral leg. No redness, warmth, swelling or tenderness to palpation of the bilateral calves. Gait is slightly guarded with decreased uday and stride length. Able to perform gait exam without ambulation assistance device. Assessment/Plan 1. Lumbar stenosis with neurogenic claudication Ordered: CT Spine Lumbar w/o (more content not included)... Normal [facility] Provider Letteron 10-15-2022 Provider Letter [facility] [address], [place], [id number] [phone] Date: 10/15/2022 17:05:57 To Whom It May Concern: This is to verify that Stephan López was under our care on 10/15/2022 16:00:00. Stated patient underwent an L3-5 posterior spinal fusion on 08/21/22 with instrumentation utilizing Medtronic osteogrip titanium screws. If you have any questions or concerns please call our office at [phone]. Thank you, King MICHELLE, Dasha Mott [facility] Neurosurgery Office/Clinic N zain 09-16-2022 Neurosurgery Office/Clinic Note Chief Complaint Patient is being seen for a post operative visit. History of Present Illness The patient is a follow-up 62-year-old female with history of diabetes, COPD, and chronic nicotine abuse who returns to the neurosurgical office for a postoperative visit. She is nearly 4 weeks status post L3-5 decompression and posterior spinal fusion with instrumentation utilizing Medtronic Osteogrip screws, interbody arthrodesis L4-5 using TLIF technique and Medtronic elevate expandable cage. Surgery was completed 08/21/[address] Snider on behalf of of intractable lumbar radiculopathy and neurogenic claudication related to severe spinal stenosis L3-4 and L4-5 with degenerative spondylolisthesis L4-5 with instability. The patient currently notes ongoing lumbosacral pain with radiation into the bilateral gluteal areas and lateral hips. On occasion this will radiate into the left anterior thigh which she describes as sometimes painful but other times somewhat numb. She denies any right lower extremity radicular pain. She denies overt weakness of the lower extremities though finds that she is somewhat limited in her walking and activity due to pain in the low back and hips. She does get up and go to the bathroom frequently as well as let her dog inside and outside. She describes this as a 7/10 to 10/10 on the pain scale. She is utilizing tizanidine and codeine for pain control as the patient had trouble tolerating previous narcotic medication including tramadol. It was found that her Lyrica was also causing her to have hallucinations and therefore this has been weaned. She was sent a Medrol dose pack to her pharmacy by Dr. Snider as the patient had contacted him last week regarding significant low back pain. She noted only mild benefit from the steroid pack and currently has 1 day left of this prescription. 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 She denies chest pain, tachycardia, palpitations or shortness of breath. She denies fever, chills, nausea or vomiting. She is eating fairly well. She notes some loose bowel movements at times, denies any bowel or bladder incontinence; no saddle paresthesia. She denies incisional redness, swelling, warmth or drainage. She denies pain, swelling, warmth or redness in the posterior calves. She is following postoperative restrictions including utilizing her LSO brace as well as avoiding driving and lifting no more than 2 pounds. She unfortunately has returned to cigarette use but was unable to provide information regarding though number of cigarettes she is smoking per day. She notes that the number depends on how much I am awake. She does note that her does chide her when she smokes a cigarette as they have been informed that this significantly and negatively impacts bony fusion. Review of Systems Constitutional: [No fevers, chills, sweats] Eye: [No recent visual problems] ENMT: [No ear pain, nasal congestion, sore throat] Respiratory: [No shortness of breath, cough] Cardiovascular: [No Chest pain, palpitations, syncope] Gastrointestinal: [Positive for somewhat loose stools. No nausea, vomiting, diarrhea, bowel incontinence] Genitourinary: [No hematuria, bladder incontinence] Physical Exam Vitals & Measurements HR: 118 (Peripheral) BP: 130/84 HT: 168 cm WT: 65.2 kg WT: 65.2 kg (Dosing) BMI: 23.1 Additional Vitals BP Position/Location: Sitting, Right arm The patient is pleasant, conversing, answering questions and following commands easily. Alert and oriented. Speech and manner are appropriate. She presents in LSO cinch lock brace which was removed at the time of today's visit for incision evaluation. Chest exam reveals heart sounds S1, S2 regular rate and rhythm without murmurs, clicks, rubs or gallops. The patient demonstrates normal respiratory effort and lungs clear to auscultation bilaterally without adventitious sounds. Lumbosacral incision appears clean, dry, intact and without erythema, drainage or warmth. Very minimal vladimir-incisional edema at the superiormost aspect of her incision consistent with mild postoperative hematoma. Surgical sridevi in place. These were removed atraumatically and the incision painted with povidone iodine, dressed with sterile gauze and paper tape. She denies tenderness to palpation of the vladimir-incisional area or lumbosacral spine though finds to be tender to palpation throughout the paraspinal musculature at the lumbosacral junction and gluteal muscles as well as laterally to the hips. Lower extremity motor exam reveals 5/5 strength, symmetric bilaterally. Lower extremity deep tendon reflexes 2+ at the patella, 1+ at the Achilles, symmetric bilaterally. No clonus noted bilaterally. The patient reports intact light touch sensation throughout the lower extremities, symmetric bilaterally. Straight leg raise leads to tension in the gluteal areas and lateral calves of the ipsilateral leg. No redness (more content not included)... Normal [facility] Inpatient Clinical Summaryon 08-24-2022 Inpatient Clinical Summary [facility] [address] [place] [address] [facility] [address] [place] [address] Clinical Summary Person Information Name: Stephan López Age: 62 Years : 1960 Sex: Female PCP: Marital Status: Phone: PCP: Race: White Ethnicity: Not or Language: Occitan Visit Id: Visit Reason: Speciality: Acuity: Enc Type: Inpatient Med Service: Surgery Arrival: 08/21/2022 06:28:12 Discharge: Dispo Type: Address: [address] [place] [id number] Diagnosis: 1:Lumbar stenosis with neurogenic claudication; 2:Spondylolisthesis, lumbar region; 3:Lumbar radiculopathy; 4:Nicotine dependence Discharged To: Home Treatments: Devices/Equipment: Walker Professional Skilled Services: Special Services and Community Resources: Mode of Discharge Transportation: Discharge Orders Allergies No Known Medication Allergies Functional Status: Sensory Deficits: None History of Falls: None Mobility Assistance Prior to Admission: ADLs: Minimal assistance Gait: Steady Ambulation Assist: Assistive Device: Gait belt, Walker Special Orthopedic Devices: Brace Current Level of Assistance for Self-Care/Mobility: Cognitive Status: Orientation: Orientation Assessment Oriented x 4 Level of Consciousness: Alert Characteristics of Speech: Clear Aspiration Risk: None Affect/Behavior: Appropriate Laboratory or Other Results This Visit (last charted value for your 08/21/2022 visit) Hematology 08/22/2022 6:51 AM WBC: 20.4 x10 RBC: 3.82 x10 Neutro Auto: 79.0 % -- Normal range between ( 47.2 and 70.8 ) Lymph Auto: 11.6 % -- Normal range between ( 27.2 and 40.8 ) Elmore Auto: 8.9 % -- Normal range between ( 3.7 and 11.9 ) Eos Auto: 0.1 % -- Normal range between ( 0.0 and 5.4 ) Basophil Auto: 0.4 % -- Normal range between ( 0.0 and 1.5 ) Baso Absolute: 0.1 x10 MCV: 94.9 fL -- Normal range between ( 80.0 and 100.0 ) MCHC: 33.5 % -- Normal range between ( 31.0 and 37.0 ) Lymph Absolute: 2.4 x10 Hct: 36.3 % -- Normal range between ( 36.0 and 46.0 ) Elmore Absolute: 1.8 x10 MCH: 31.8 pg -- Normal range between ( 27.0 and 35.0 ) Neutro Absolute: 16.1 x10 Hgb: 12.2 g/dL -- Normal range between ( 12.0 and 16.0 ) Mean Platelet Volume: 9.0 fL -- Normal range between ( 6.7 and 10.6 ) Platelet: 282 x10 Eos Absolute: 0.0 x10 RDW: 13.5 % -- Normal range between ( 11.6 and 14.8 ) Chemistry 08/22/2022 6:51 AM Creatinine Lvl: 0.76 mg/dL -- Normal range between ( 0.44 and 1.03 ) BUN: 10 mg/dL -- Normal range between ( 8 and 26 ) Glucose Lvl: 116 mg/dL -- Normal range between ( 70 and 99 ) Potassium Lvl: 4.2 mmol/L -- Normal range between ( 3.4 and 4.8 ) Sodium Lvl: 134 mmol/L -- Normal range between ( 133 and 142 ) Calcium Lvl: 8.5 mg/dL -- Normal range between ( 8.5 and 10.3 ) Chloride: 101 mmol/L -- Normal range between ( 98 and 110 ) CO2: 25 mmol/L -- Normal range between ( 22 and 32 ) Anion Gap: 12 -- Normal range between ( 7 and 17 ) Estimated GFR: >60 mL/min/1.73m? BUN Crea Ratio: 13.2 -- Normal range between ( 10.0 and 20.0 ) Blood Bank 08/10/2022 10:45 AM ABO/Rh: O NEG Antibody Screen: Negative ABSC POC Testing 08/23/2022 11:59 AM POC Gluc Random: 114 mg/dL -- Normal range between ( 70 and 99 ) Diagnostic Radiology 08/21/2022 2:45 PM XR Spine Lumbosacral 4 Views + in OR: XR Spine Lumbosacral 4 Views + in OR Measurements: Height: Weight: Blood Pressure: 110 mmHg / BMI: Respiratory: Respirations: Unlabored Respiratory Symptoms: None Cardiovascular: Heart Sounds: Heart Rhythm: Regular Gastrointestinal: GI Symptoms: Bowel Sounds: Present Vital Signs: Temp Axillary: 36.5 degC Temp Temporal Artery: 36.3 degC Temp Oral: 36.6 degC Temp Rectal: Apical Heart Rate: Peripheral Pulse Rate: 95 bpm Heart Rate: 101 bpm Respiratory Rate: 18 br/min Diet Diet: Feeding Tolerance: Appetite: Good Max Assessment: 20 Procedures No Procedures Documented Immunizations No Immunizations Documented This Visit HERE ARE THE MEDICATION CHANGES THAT OCCURRED DURING YOUR HOSPITAL STAY New Medications [id number], [address], [place] [id number], [phone] ascorbic acid (ascorbic acid 500 mg oral tablet, chewable) 1 Tabs Oral (given by mouth) every 8 hours for 90 Days. Refills: 0. Last Dose: ___ cephalexin (Keflex 500 mg oral capsule) 1 Capsules Oral (given by mouth) every 6 hours standard times for 3 Days. Refills: 0. Last Dose: ___ docusate (docusate sodium 100 mg oral capsule) 1 Capsules Oral (given by mouth) 2 times a day for 7 Days. Refills: 0. Last Dose: ___ ferrous sulfate (ferrous sulfate 325 mg (65 mg elemental iron) oral tablet) 1 Tabs Oral (given by mouth) 2 times a day for 30 Days. Refills: 0. Last Dose: ___ magnesium hydroxi (more content not included)... Normal [facility] Neurosurgery Progress Noteon 08-24-2022 Neurosurgery Progress Note Objective Vitals & Measurements T: 36.9 ?C (Oral) HR: 101 (Monitored) RR: 18 BP: 96/60 SpO2: 93% HT: 168 cm HT: 168 cm WT: 73.8 kg BMI: 24.78 BMI: 24.78 Additional Vitals No qualifying data available. Lab Results Labs (Last four charted values) WBC H 20.4 (AUG 22) Hgb 12.2 (AUG 22) Hct 36.3 (AUG 22) Plt 282 (AUG 22) Na 134 (AUG 22) K 4.2 (AUG 22) CO2 25 (AUG 22) Cl 101 (AUG 22) Cr 0.76 (AUG 22) BUN 10 (AUG 22) Microbiology - Current Encounter No qualifying data available. Diagnostic Results Diagnostic Radiology XR Spine Lumbosacral 4 Views + in OR 08/21/22 17:00:[address] images of the lumbar spine on 08/21/2022 Findings: limited intraoperative fluoroscopic and CT images obtained during lumbar spine surgery done by Dr. Snider . Total fluoro time for this procedure is 6.4 seconds. This dictation is for documentation only. Please refer to the OR report for details. Possible hepatomegaly. Signed By: Isabel BOWIE, Bernice Choi Medications Inpatient ascorbic acid, 500 mg, Oral, q8hr atorvastatin, 20 mg, Oral, qAM bisacodyl, 10 mg= 1 supp, Rectal, Daily, PRN docusate sodium, 100 mg, Oral, BID ferrous sulfate, 325 mg, Oral, BID hydrALAZINE, 10 mg= 0.5 mL, IV Push, q10min, PRN Keflex, 500 mg, Oral, q6hr labetalol, 10 mg= 2 mL, IV Push, q10min, PRN lisinopril, 2.5 mg, Oral, Daily magnesium hydroxide 8% oral suspension, 30 mL, Oral, TID metFORMIN, 500 mg, Oral, BID multivitamin with minerals, 1 tabs, Oral, Daily omeprazole, 40 mg, Oral, Daily ondansetron, 4 mg= 2 mL, IV Push, q6hr, PRN pregabalin, 100 mg, Oral, BID scopolamine 1 mg/72 hr transdermal film, extended release, 1 patches, TD, q72hr sodium chloride 0.9% injectable solution, 10 mL, IV Push, As Indicated, PRN traMADol, 100 mg, Oral, q4hr, PRN traMADol, 50 mg, Oral, q4hr, PRN Assessment/Plan 1. Lumbar stenosis with neurogenic claudication 2. Spondylolisthesis, lumbar region 3. Lumbar radiculopathy 4. Nicotine dependence Orders: cephalexin, 500 mg, Oral, Cap, q6hr for 12 doses, First Dose: 08/24/22 8:00:00 EDT, Stop Date: 08/27/22 7:59:00 EDT, Dispense From Location: [address], Prophylaxis- Pre/Post-Op, 08/24/22 7:40:00 EDT scopolamine, 1 patches, TD, Film-ER, q72hr, First Dose: 08/24/22 7:40:00 EDT, Dispense From Location: [facility], 08/24/22 7:40:00 EDT traMADol, 100 mg, Oral, Tab, q4hr, PRN severe pain [7-10 on pain scale], First Dose: 08/23/22 9:04:00 EDT, Dispense From Location: [address], 08/23/22 9:04:00 EDT traMADol, 50 mg, Oral, Tab, q4hr, PRN moderate pain [4-6 on pain scale], First Dose: 08/23/22 9:04:00 EDT, Dispense From Location: [address], 08/23/22 9:04:00 EDT Surgical Drains Subjective: Patient reports that headache resolved Still has some nausea with movement or sitting up Reports that she is eating well Believes she had small bowel movement yesterday Well-controlled back pain-received 2 tramadol 1 hour ago and appears a little sleepy No radicular pain Denies paresthesias or numbness Denies headache, vomiting, chest pain, shortness of breath, GI distress Objective: General: Pleasant and cooperative but appears tired due to recent dosing of narcotic lungs: clear; performs deep nasal breathing exercises while abdomen: soft, nontender, nondistended incision: dressed, dry with old serosanguineous drainage. Surgical drain output 55 mL / 5 hours. Surgical drain is removed by surgeon and incision is clean, dry, intact with no fullness, fluctuance, erythema, induration. Fresh dressing applied by surgeon Saturations 98% and heart rate in the upper 80s Neuro: mental status: awake, alert, appropriate with normal mental status exam albeit with tired appearance cranial nerves: No ophthalmoplegia, equal facies, no evident lower cranial neuropathy motor: 5/5 power all groups gait: [] Assessment/plan: Postoperative day 3 status post decompression and stabilization L3-5 secondary to severe spinal stenosis with neurogenic claudication, intractable radiculopathy, spinal instability and spondylolisthesis Patient appears to be doing well and would like to discharge to home-she appears appropriate for this. Her is at home at all times. He suffers disability from low back issues but is functional and can perform home care. Furthermore, patient has a home health nurse friend who lives next door to her and another friend who is a pharmacist who will also be checking in on her Home-going instructions provided verbally and computer-generated education sheet Patient is grateful for care and all questions answered to her satisfaction Electronically signed by Tylor KAMARA MD, Delfino Freeman 08/24/22 07:45 EDT Normal [facility] Neurosurgery Progress Noteon 08-23-2022 Neurosurgery Progress Note Objective Vitals & Measurements T: 36.5 ?C (Oral) HR: 79 (Peripheral) RR: 17 BP: 125/70 SpO2: 97% HT: 168 cm HT: 168 cm WT: 77.3 kg BMI: 24.78 BMI: 24.78 Additional Vitals No qualifying data available. Lab Results Labs (Last four charted values) WBC H 20.4 (AUG 22) Hgb 12.2 (AUG 22) Hct 36.3 (AUG 22) Plt 282 (AUG 22) Na 134 (AUG 22) K 4.2 (AUG 22) CO2 25 (AUG 22) Cl 101 (AUG 22) Cr 0.76 (AUG 22) BUN 10 (AUG 22) Microbiology - Current Encounter No qualifying data available. Diagnostic Results Diagnostic Radiology XR Spine Lumbosacral 4 Views + in OR 08/21/22 17:00:[address] images of the lumbar spine on 08/21/2022 Findings: limited intraoperative fluoroscopic and CT images obtained during lumbar spine surgery done by Dr. Snider . Total fluoro time for this procedure is 6.4 seconds. This dictation is for documentation only. Please refer to the OR report for details. Possible hepatomegaly. Signed By: Isabel BOWIE, Bernice Choi Medications Inpatient ascorbic acid, 500 mg, Oral, q8hr atorvastatin, 20 mg, Oral, qAM bisacodyl, 10 mg= 1 supp, Rectal, Daily, PRN ceFAZolin, 2 g= 50 mL, IV Piggyback, q8hr docusate sodium, 100 mg, Oral, BID ferrous sulfate, 325 mg, Oral, BID hydrALAZINE, 10 mg= 0.5 mL, IV Push, q10min, PRN labetalol, 10 mg= 2 mL, IV Push, q10min, PRN lisinopril, 2.5 mg, Oral, Daily magnesium hydroxide 8% oral suspension, 30 mL, Oral, TID metFORMIN, 500 mg, Oral, BID multivitamin with minerals, 1 tabs, Oral, Daily omeprazole, 40 mg, Oral, Daily ondansetron, 4 mg= 2 mL, IV Push, q6hr, PRN pregabalin, 100 mg, Oral, BID sodium chloride 0.9% injectable solution, 10 mL, IV Push, As Indicated, PRN traMADol, 100 mg, Oral, q4hr, PRN traMADol, 50 mg, Oral, q4hr, PRN Assessment/Plan 1. Lumbar stenosis with neurogenic claudication 2. Spondylolisthesis, lumbar region 3. Lumbar radiculopathy 4. Nicotine dependence Orders: traMADol, 100 mg, Oral, Tab, q4hr, PRN severe pain [7-10 on pain scale], First Dose: 08/23/22 9:04:00 EDT, Dispense From Location: [id number], 08/23/22 9:04:00 EDT traMADol, 50 mg, Oral, Tab, q4hr, PRN moderate pain [4-6 on pain scale], First Dose: 08/23/22 9:04:00 EDT, Dispense From Location: [id number], 08/23/22 9:04:00 EDT Surgical Drains Subjective: Patient had on and off nausea and headache that was nonpostural. Nursing notes that it seems to worsen after she receives baclofen and this morning after receiving baclofen, she demonstrated subtle confusion approximately 1 hour after dosing Patient still eating well Mobilizing with therapy modalities without difficulties Notes elimination of preoperative pain syndrome and has only surgical pain in her lumbar region No urinary difficulties Bowel program effective No radicular pain Denies vomiting, chest pain, shortness of breath, GI distress Objective: General: Pleasant and cooperative and without distress or confusion lungs: clear; performs atelectasis deep nasal breathing exercises well abdomen: soft, nontender, nondistended incision: dressed, dry; Hemovac drain output 80 mL / 4 hours with pale serosanguineous output Neuro: mental status: awake, alert, appropriate with normal mental status exam cranial nerves: No ophthalmoplegia, equal facies, no evident lower cranial neuropathy motor: 5/5 power all groups gait: [] Assessment/plan: Postoperative day 2 status post decompression and stabilization L3-L5 for severe spinal stenosis with intractable lumbar radiculopathy and neurogenic claudication; lumbar spinal instability and lumbar spondylolisthesis Patient doing fairly well other than nonpostural headache and nausea which may be related to pain control measures-these will be adjusted Continue with standard postoperative management mobilization with physical therapy and occupational therapy with goal of safe discharge to home by tomorrow Hep-Lock; dietary intake adequate oral pain regimen-discontinue baclofen and convert Percocet therapy to tramadol Convert Hemovac drain to gravity feed in the event that there is small cerebral spinal fluid fistula which is now not evident Continue DVT prophylaxis through external devices-patient not eligible for chemoprophylaxis secondary to risk of bleeding Continue IV antibiotics until surgical drains removed for prophylaxis-anticipate this tomorrow morning Blood glucose/diabetic control is good with no hyperglycemia Vitamins and oxygen for wound healing Bowel program for postoperative narcotic-induced ileus effective Incentive spirometry educated and encouraged for postoperative atelectasis Currently anticipate discharge home tomorrow-patient has adaptive equipment such as walkers and canes at home Electronically signed by Delfino Snider III, MD 08/23/22 09:14 EDT Normal [facility] POC Glucose Randomon 023 Glucose [Mass/Vol] 114 mg/dL High 70-99 [facility] Comment on above: Performed By: #### C [id number] ####[facility] [place] [address] Glucose [Mass/Vol] 114 mg/dL High 70-99 [facility] Comment on above: Performed By: #### C [id number] #### [facility] [address] [place] [address] .eGFRon 08-22-2022 GFR/1.73 sq M.predicted MDRD (S/P/Bld) [Vol rate/Area] mL/min/{1.73_m2} Normal >=60 [facility] Comment on above: Result Comment: [facility] have implemented the eGFR calculation approach that does not have a coefficient for race and that conforms to the NKF-ASN Task Force Recommendations. Stages of Chronic Kidney Disease GFR Stage 3a Mild to moderate loss of kidney function 59 to 45 Stage 3b Moderate to severe loss of kidney function 44 to 33 Stage 4 Severe loss of kidney function 29 to 15 Stage 5 Kidney failure Less than 15 GFR calculated using the CKD-Epi Creatinine Equation (2020): eGFR = 142 X min(SCr/?, 1)? X max(SCr /?, 1)-1.200 X 0.9938Age X 1.012 [if female] Abbreviations/Units: eGFR (estimated glomerular filtration rate) = mL/min/1.73 m2 SCr (standardized serum creatinine) = mg/dL ? = 0.7 (females) or 0.9 (males) ? = -0.241 (females) or -0.302 (males) min = indicates the minimum of SCr/? or 1 max = indicates the maximum of SCr/? or 1 Age = years Performed By: #### E GFR ####[address] [address] Basic Metabolic Profileon Anion gap [Moles/Vol] 12 mmol/L Normal 7-17 [facility] Comment on above: Performed By: #### C [id number] #### [address] [address] Calcium [Mass/Vol] 8.5 mg/dL Normal 8.5-10.3 [facility] Comment on above: Performed By: #### C [id number] #### [address] [address] Chloride [Moles/Vol] 101 mmol/L Normal 98-110 [facility] Comment on above: Performed By: #### C [id number] #### [address] [address] CO2 [Moles/Vol] 25 mmol/L Normal 22-32 [facility] Comment on above: Performed By: #### C [id number] #### [address] [address] Creatinine [Mass/Vol] 0.76 mg/dL Normal 0.44-1.03 [facility] Comment on above: Performed By: #### C [id number] #### [address] [address] Glucose [Mass/Vol] 116 mg/dL High 70-99 [facility] Comment on above: Performed By: #### C [id number] #### [address] [address] Potassium [Moles/Vol] 4.2 mmol/L Normal 3.4-4.8 [facility] Comment on above: Performed By: #### C [id number] #### [address] [address] Sodium [Moles/Vol] 134 mmol/L Normal 133-142 [facility] Comment on above: Performed By: #### C [id number] #### [address] [address] Urea nitrogen [Mass/Vol] 10 mg/dL Normal 8-26 [facility] Comment on above: Performed By: #### C [id number] #### [address] [address] Urea nitrogen/Creatinine [Mass ratio] 13.2 mg/mg Normal 10.0-20.0 [facility] Comment on above: Performed By: #### C [id number] #### [address] [address] CBC w/ Diffon 08-22-2022 Erythrocyte distribution width (RBC) [Ratio] 13.5 % Normal 11.6-14.8 [facility] Comment on above: Performed By: #### C BC ####[address] [address] Hematocrit (Bld) [Volume fraction] 36.3 % Normal 36.0-46.0 [facility] Comment on above: Performed By: #### C BC ####[address] [address] Hemoglobin (Bld) [Mass/Vol] 12.2 g/dL Normal 12.0-16.0 [facility] Comment on above: Performed By: #### C BC ####[address] [address] MCH (RBC) [Entitic mass] 31.8 pg Normal 27.0-35.0 [facility] Comment on above: Performed By: #### C BC ####[address] [address] MCHC 33.5 % Normal 31.0-37.0 [facility] Comment on above: Performed By: #### C BC ####[address] [address] MCV (RBC) [Entitic vol] 94.9 fL Normal 80.0-100.0 [facility] Comment on above: Performed By: #### C BC ####[address] [address] Platelet 282 x10*3/mcL Normal 150-450 [facility] Comment on above: Performed By: #### C BC ####[address] [address] Platelet mean volume (Bld) [Entitic vol] 9.0 fL Normal 6.7-10.6 [facility] Comment on above: Performed By: #### C BC ####[address] [address] RBC 3.82 x10*6/mcL Normal 3.80-5.20 [facility] Comment on above: Performed By: #### C BC ####[address] [address] WBC 20.4 x10*3/mcL High 4.5-11.0 [facility] Comment on above: Performed By: #### C BC ####[address] [address] Diff Autoon 08-22-2022 Baso Absolute 0.1 x10*3/mcL Normal 0.0-0.2 [facility] Comment on above: Performed By: #### C [id number] #### [address] [address] Basophils/100 WBC (Bld) 0.4 % Normal 0.0-1.5 [facility] Comment on above: Performed By: #### C [id number] #### [address] [address] Eos Absolute 0.0 x10*3/mcL Normal 0.0-0.4 [facility] Comment on above: Performed By: #### C [id number] #### [address] [address] Eosinophils/100 WBC (Bld) 0.1 % Normal 0.0-5.4 [facility] Comment on above: Performed By: #### C [id number] #### [address] [address] Lymph Absolute 2.4 x10*3/mcL Normal 1.0-4.8 [facility] Comment on above: Performed By: #### C [id number] #### [address] [address] Lymphocytes/100 WBC (Bld) 11.6 % Low 27.2-40.8 [facility] Comment on above: Performed By: #### C [id number] #### [address] [address] [place] Absolute 1.8 x10*3/mcL High 0.1-1.1 [facility] Comment on above: Performed By: #### C [id number] #### [address] [address] Monocytes/100 WBC (Bld) 8.9 % Normal 3.7-11.9 [facility] Comment on above: Performed By: #### C [id number] #### [address] [address] Neutro Absolute 16.1 x10*3/mcL High 1.8-7.7 [facility] Comment on above: Performed By: #### C [id number] #### [address] [address] Neutro Auto 79.0 % High 47.2-70.8 [facility] Comment on above: Performed By: #### C [id number] #### [address] [address] Neurosurgery Progress Noteon 08-22-2022 Neurosurgery Progress Note Objective Vitals & Measurements T: 36.6 ?C (Oral) HR: 86 (Monitored) RR: 17 BP: 123/65 SpO2: 100% HT: 168 cm HT: 168 cm WT: 70.1 kg BMI: 24.78 BMI: 24.78 Additional Vitals No qualifying data available. Lab Results Labs (Last four charted values) WBC H 20.4 (AUG 22) Hgb 12.2 (AUG 22) Hct 36.3 (AUG 22) Plt 282 (AUG 22) Microbiology - Current Encounter No qualifying data available. Diagnostic Results Diagnostic Radiology XR Spine Lumbosacral 4 Views + in OR 08/21/22 17:00:[address] images of the lumbar spine on 08/21/2022 Findings: limited intraoperative fluoroscopic and CT images obtained during lumbar spine surgery done by Dr. Snider . Total fluoro time for this procedure is 6.4 seconds. This dictation is for documentation only. Please refer to the OR report for details. Possible hepatomegaly. Signed By: Isbael BOWIE, Bernice Choi Medications Inpatient ascorbic acid, 500 mg, Oral, q8hr atorvastatin, 20 mg, Oral, qAM baclofen, 5 mg, Oral, [id number] Times bisacodyl, 10 mg= 1 supp, Rectal, Daily, PRN ceFAZolin, 2 g= 50 mL, IV Piggyback, q8hr docusate sodium, 100 mg, Oral, BID Dulcolax Laxative, 10 mg= 1 supp, Rectal, Once ferrous sulfate, 325 mg, Oral, BID hydrALAZINE, 10 mg= 0.5 mL, IV Push, q10min, PRN labetalol, 10 mg= 2 mL, IV Push, q10min, PRN lisinopril, 2.5 mg, Oral, Daily magnesium hydroxide 8% oral suspension, 30 mL, Oral, TID metFORMIN, 500 mg, Oral, BID multivitamin with minerals, 1 tabs, Oral, Daily omeprazole, 40 mg, Oral, Daily ondansetron, 4 mg= 2 mL, IV Push, q6hr, PRN oxyCODONE-acetaminophe n 5 mg-325 mg oral tablet, 1 tabs, Oral, q4hr, PRN oxyCODONE-acetaminophe n 5 mg-325 mg oral tablet, 2 tabs, Oral, q4hr, PRN pregabalin, 100 mg, Oral, BID sodium chloride 0.9% injectable solution, 10 mL, IV Push, As Indicated, PRN Assessment/Plan 1. Lumbar stenosis with neurogenic claudication 2. Spondylolisthesis, lumbar region 3. Lumbar radiculopathy 4. Nicotine dependence Orders: ascorbic acid, 500 mg, Oral, Tab-Chew, q8hr, First Dose: 08/21/22 17:00:00 EDT, Dispense From Location: [address], 08/21/22 16:37:00 EDT baclofen, 5 mg, Oral, Tab, [id number] Times, First Dose: 08/21/22 22:00:00 EDT, Dispense From Location: [address], 08/21/22 16:37:00 EDT bisacodyl, 10 mg, Rectal, Supp, Once, First Dose: 08/22/22 6:59:00 EDT, Stop Date: 08/22/22 6:59:00 EDT, Dispense From Location: [address], 08/22/22 6:59:00 EDT bisacodyl, 10 mg, Rectal, Supp, Daily, PRN constipation, First Dose: 08/22/22 9:00:00 EDT, Dispense From Location: [address], 08/22/22 9:00:00 EDT ceFAZolin, 2 g, IV Piggyback, Soln-IV, q8hr, infuse over 30 minutes, First Dose: 08/21/22 20:00:00 EDT, Dispense From Location: [address], Prophylaxis- Pre/Post-Op, 08/21/22 20:00:00 EDT docusate, 100 mg, Oral, Cap, BID, First Dose: 08/21/22 21:00:00 EDT, Dispense From Location: [address], 08/21/22 16:37:00 EDT ferrous sulfate, 325 mg, Oral, Tab, BID, First Dose: 08/21/22 21:00:00 EDT, Dispense From Location: [address], 08/21/22 16:37:00 EDT hydrALAZINE, 10 mg, IV Push, Injection, q10min, PRN hypertension, First Dose: 08/21/22 16:37:00 EDT, Dispense From Location: [address], 08/21/22 16:37:00 EDT labetalol, 10 mg, IV Push, Injection, q10min, PRN hypertension, First Dose: 08/21/22 16:37:00 EDT, Dispense From Location: [address], 08/21/22 16:37:00 EDT magnesium hydroxide, 30 mL, Oral, Susp, TID, First Dose: 08/21/22 22:00:00 EDT, Dispense From Location: [address], 08/21/22 16:37:00 EDT multivitamin with minerals, 1 tabs, Oral, Tab, Daily, First Dose: 08/22/22 9:00:00 EDT, Dispense From Location: [address], 08/21/22 16:37:00 EDT ondansetron, 4 mg, IV Push, Injection, q6hr, PRN nausea/vomiting, First Dose: 08/21/22 15:08:00 EDT, Dispense From Location: [facility], 08/21/22 15:08:00 EDT oxyCODONE-acetaminophe n, 1 tabs, Oral, Tab, q4hr, PRN moderate pain [4-6 on pain scale], First Dose: 08/21/22 16:37:00 EDT, Dispense From Location: [address], 08/21/22 16:37:00 EDT oxyCODONE-acetaminophe n, 2 tabs, Oral, Tab, q4hr, PRN severe pain [7-10 on pain scale], First Dose: 08/21/22 16:37:00 EDT, Dispense From Location: [address], 08/21/22 16:37:00 EDT sodium chloride, 10 mL, IV Push, Injection, As Indicated, PRN flush, First Dose: 08/21/22 16:37:00 EDT, Dispense From Location: [id number], 08/21/22 16:37:00 EDT ADA Diet Ambulate Basic Metabolic Profile Blood Glucose Monitoring POC Cinch Loc Brace (EXOS Brace) Consult to Commercial Assistant Incentive Spirometry Nursing to Encourage Intake and Output Mechanical Compression Device Neurological Checks Notify Provider Occupational Therapy Evaluation and Treatment Inpatient Oxygen Therapy Peripheral IV Insert and Maintain Physical Therapy Evaluation and Treatment Inpatient Pulse Oximetry Continuous Pulse Oximetry Continuous Resuscitation Status Straight Catheter Straight (more content not included)... Normal [facility] POC Glucose Randomon 023 Glucose [Mass/Vol] 124 mg/dL High 70-99 [facility] Comment on above: Performed By: #### C [id number] #### [facility] [address] [place] [address] Glucose [Mass/Vol] 120 mg/dL High 70-99 [facility] Comment on above: Performed By: #### C [id number] ####[facility] [place] [address] Neurosurgery Progress Noteon 08-21-2022 Neurosurgery Progress Note Objective Vitals & Measurements T: 36.6 ?C (Temporal Artery) HR: 87 (Monitored) RR: 15 BP: 114/86 SpO2: 98% HT: 168 cm WT: 68.94 kg (Estimated) WT: 68.94 kg (Dosing) BMI: 24.43 Additional Vitals No qualifying data available. Lab Results No qualifying data available Microbiology - Current Encounter No qualifying data available. Medications Inpatient atorvastatin, 20 mg, Oral, qAM Betadine Gargle 0.5% solution, 10 mL, Oral, Once ceFAZolin, 2 g= 50 mL, IV Piggyback, Addiction Specialist Dilaudid, 0.5 mg= 0.5 mL, IV Push, q15min, PRN diphenhydrAMINE, 25 mg= 0.5 mL, IV Push, q6hr, PRN fentaNYL, 50 mcg= 1 mL, IV Push, q5min, PRN fentaNYL MASTER SCHEDULER, 300 mcg= 30 mL, IV MASTER SCHEDULER, [id number] Times, PRN lisinopril, 2.5 mg, Oral, Daily LR 1,000 mL, 1000 mL, IV meperidine, 12.5 mg= 0.5 mL, IV Push, q2min, PRN metFORMIN, 500 mg, Oral, BID nalbuphine, 2.5 mg= 0.25 mL, IV Push, q6hr, PRN Normal Saline Flush 0.9% injectable solution, 10 mL, IV Push, As Indicated, PRN omeprazole, 40 mg, Oral, Daily ondansetron, 4 mg= 2 mL, IV Push, q6hr, PRN pregabalin, 100 mg, Oral, BID prochlorperazine, 5 mg= 1 mL, IV Push, Once, PRN Sodium Chloride 0.9% intravenous solution 1,000 mL, 1000 mL, IV Zofran, 4 mg= 2 mL, IV Push, Once, PRN Assessment/Plan 1. Lumbar stenosis with neurogenic claudication 2. Spondylolisthesis, lumbar region 3. Lumbar radiculopathy 4. Nicotine dependence Orders: atorvastatin, 20 mg, Oral, Tab, qAM, First Dose: 08/21/22 9:00:00 EDT, [facility] 08/21/22 6:35:00 EDT ceFAZolin, 2 g, IV Piggyback, Soln-IV, Addiction Specialist, infuse over 30 minutes, First Dose: 08/21/22 0:15:00 EDT, Dispense From Location: [id number], Prophylaxis- Pre/Post-Op, 08/21/22 0:15:00 EDT diphenhydrAMINE, 25 mg, IV Push, Injection, q6hr, PRN itching, First Dose: 08/21/22 15:08:00 EDT, Dispense From Location: [id number], 08/21/22 15:08:00 EDT fentaNYL, 300 30 mcg mL, IV MASTER SCHEDULER, Loading Dose (mcg): 25, MASTER SCHEDULER Dose (mcg): 10, Lockout Interval (min): 8, Continuous Dose (mcg/hr): 25, 4-Hour Limit (mcg): 300, 2.5 mL/hr, pain PRN, Start Date: 08/21/22 15:08:00 EDT, Disp[facility], [facility]... lisinopril, 2.5 mg, Oral, Tab, Daily, First Dose: 08/21/22 9:00:00 EDT, Dispense From Location: [facility], 08/21/22 6:35:00 EDT metFORMIN, 500 mg, Oral, Tab, BID, First Dose: 08/21/22 9:00:00 EDT, Dispense From Location: [facility], 08/21/22 6:35:00 EDT nalbuphine, 2.5 mg, IV Push, Injection, q6hr, PRN refractory itching, First Dose: 08/21/22 15:08:00 EDT, Dispense From Location: [facility], 08/21/22 15:08:00 EDT omeprazole, 40 mg, Oral, Cap-DR, Daily, First Dose: 08/21/22 7:00:00 EDT, Dispense From Location: [facility], 08/21/22 6:35:00 EDT ondansetron, 4 mg, IV Push, Injection, q6hr, PRN nausea/vomiting, First Dose: 08/21/22 15:08:00 EDT, Dispense From Location: [facility], 08/21/22 15:08:00 EDT pregabalin, 100 mg, Oral, Cap, BID, First Dose: 08/21/22 9:00:00 EDT, Dispense From Location: [facility], 08/21/22 6:35:00 EDT Admit to Inpatient Communication Order Empty Bladder Mechanical Compression Device Patient Education Pulse Oximetry Continuous Straight Catheter Surgical Prep Surgical Prep Vital Signs Vital Signs XR Spine Lumbosacral 4 Views + in OR Patient in recovery Reports modest pain but is otherwise comfortable No radicular pain Hemodynamically stable Has normal strength in lower extremities Has approximately 80 to 100 mL out of Hemovac drain Appears to be doing well Deep nasal breathing exercises coached and patient performs well in spite of mild sedation reassess in am Electronically signed by Delfino Snider III, MD 08/21/22 15:45 EDT Normal [facility] Operative Reporton 3 Operative Report Indication for Surge ry Intractable lumbar radiculopathy and neurogenic claudication related to severe spinal stenosis L3-4 and L4-5 with degenerative spondylolisthesis L4-5 with instability; advanced degenerative disc disease L3-4 and L4-5 Preoperative Diagnosis SEVERE SPINAL STENOSIS WITH NEUROGENIC CLAUDICATION, LUMBAR SPONDYLOLISTHESIS Postoperative Diagnosis Same Operation Decompressive laminectomies of L3 and L4 as well as superior third of L5 with total foraminotomies bilateral L3-4 and L4-5; interbody arthrodesis L4-5 using TLIF technique with locally harvested autograft from laminectomy and rubberittronic elevate expandable cage 8-12 mm; posterolateral arthrodesis L3-L4 and L5 bilaterally with locally harvested autograft and small kit infuse from rubberittronic due to chronic nicotine abuse; transpedicular fixation L3, L4, L5 bilaterally with Poachable Osteogrip screws 6.5 mm in diameter; resection of juxta articular facet cyst left L4-5; computer-assisted hardware placement using Kadientalth station and Poachable O-arm Surgeon(s) Delfino Snider III, MD (Surgeon - Primary) Crackling Press Operator Dasha Waggoner PA-C (Investment Advisor) Anesthesia General Maulik Joseph MD (Talent Manager) Koko Eugene (Provider) Estimated Blood Loss 300.0 mL Urine Output 300 mL Findings Stable SSEP and EMG monitoring Average bone quality Specimen(s) None Complications None Technique History: Pleasant 62-year-old female with a history of diabetes, COPD, chronic nicotine abuse which has essentially terminated other than 2 cigarettes today due to high stress, who presents with low back pain and neurogenic claudication. The patient has no motor neuropathy but has had failure of adequate symptom control or comfort in spite of conservative management including medication, pain management, physical modalities. Her imaging reveals severe spinal stenosis at L4-5 and to a lesser degree L3-4 with spondylolisthesis with instability. Given that the patient has essentially terminated nicotine, it appears reasonable to offer her definitive management given the failure of conservative therapy. She is made aware of the alternatives as well as opportunity for second opinion. She is also made aware of the conduct of this procedure such that she will stay in the hospital for 2 and half to 3 days. She is educated as to the expected convalescence and restrictions after surgery as well as the risk including the risk of procedure including infection, bleeding, CSF leak, neurologic injury, neuropathic pain syndrome, peridural fibrosis, failure for improvement, incomplete benefit, new neurologic deficit, spinal instability, coma, , paralysis, deep venous thrombosis, pulmonary embolism as well as pseudoarthrosis, adjacent segment disease, hardware failure or pullout, ischemic optic neuropathy with permanent blindness, reoperation either delayed or acute. Patient acknowledges the possible use of bone morphogenetic protein to stimulate fusion and she is educated regarding the previous class action suit against this product, particularly insofar as relationship to cancer is concerned and the relative merits and demerits and scientific literature regarding this claim. She acknowledges and she and her do not believe they need a second opinion and she would like to proceed in the near future. Patient will terminate all NSAIDs/herbal therapies 2 weeks prior to intervention and receive medical clearance from primary provider The surgeon personally met with the patient performed directed history, physical, review of imaging and performed full surgical consent. All questions answered to her satisfaction and her and they are grateful Procedure: Patient is brought into the operating room and general anesthetic is induced with atraumatically placed endotracheal tube. Venous access is secured. Patient is carefully turned onto [facility] operating room table and head and neck are placed in neutral position and arms are placed on arm boards as patient is turned prone; neurovascular bundles unencumbered. Patient is placed on chest pad and hip pads to allow the abdomen to be dependent to prevent venous vascular engorgement. Once positioned, the patient receives IV antibiotics and the lumbar region is cleaned with alcohol and dried. 18-gauge spinal needles placed adjacent to levels of interest and fluoroscopy was used to confirm levels. A proposed skin incision is scribed from the top of the spinous process of L2 to the spinous process of L5. The area is prepped and draped in usual fashion. After the appropriate side, site, patient are identified, and a time-out maneuver performed, full-thickness skin incisions is performed with knife followed by monopolar cautery to divide subcutaneous tissues to the thoracolumbar fascia. Fascia is incised using cutting current monopolar cautery. In a subperiosteal fashion, paravertebral muscles were elevated off the spinous pro (more content not included)... Normal [facility] POC Glucose Randomon 023 Glucose [Mass/Vol] 152 mg/dL High 70-99 [facility] Comment on above: Performed By: #### C [id number] #### [facility] [address] [place] [address] Glucose [Mass/Vol] 206 mg/dL High 70-99 [facility] Comment on above: Performed By: #### C [id number] #### [facility] [address] [place] [address] Glucose [Mass/Vol] 179 mg/dL High 70-99 [facility] Comment on above: Performed By: #### C [id number] ####[facility] [place] [address] XR Spine Lumbosacral 4 Views + in ORon 08-21-2022 XR Spine Lumbosacral 4 Views + in OR Intraoperative fluoroscopic and CT images of the lumbar spine on 08/21/2022 Findings: limited intraoperative fluoroscopic and CT images obtained during lumbar spine surgery done by Dr. Snider . Total fluoro time for this procedure is 6.4 seconds. This dictation is for documentation only. Please refer to the OR report for details. Possible hepatomegaly. Final Dictated by: Bernice Hall MD Dictated DT/TM: 08/21/2022 4:57 pm Signed by: Bernice Hall MD Signed (Electronic Signature): 08/21/2022 5:00 pm (If Report Is Signed, Electronically Signed in Other Vendor System) [facility] Provider Letteron 08-11-2022 Provider Letter Gayla Martinez CNP [address] [place] [address] Re: Stephan López Date of Visit: 08/10/2022 Dear Gayla Martinez CNP, Let me know if you have any questions or concerns. Sincerely, Lin Cintron Providers: [CC Letter Providers Please see attached lab results The following document(s) were included in the letter: August 10, 2022 13:56:47 EDT - (08/10/2022) Reminder Message [facility] .UA Microscp Aon 08-10-2022 UA Hyline Cast Qual 3-5 Normal Negative [facility] Comment on above: Performed By: #### C [id number] #### [address] [address] UA Mucus Present Abnormal Absent [facility] Comment on above: Performed By: #### C [id number] #### [address] [address] UA RBC Quant 0 /HPF Normal 0-5 [facility] Comment on above: Performed By: #### C [id number] #### [place] [id number] UA Squepi Cells Quant 2 /HPF Normal 0-29 [facility] Comment on above: Performed By: #### C [id number] #### [address] [address] UA WBC Quant 0 /HPF Normal 0-5 [facility] Comment on above: Performed By: #### C [id number] #### [address] [address] .eGFRon 08-10-2022 GFR/1.73 sq M.predicted MDRD (S/P/Bld) [Vol rate/Area] mL/min/{1.73_m2} Normal >=60 [facility] Comment on above: Result Comment: [facility] have implemented the eGFR calculation approach that does not have a coefficient for race and that conforms to the NKF-ASN Task Force Recommendations. Stages of Chronic Kidney Disease GFR Stage 3a Mild to moderate loss of kidney function 59 to 45 Stage 3b Moderate to severe loss of kidney function 44 to 33 Stage 4 Severe loss of kidney function 29 to 15 Stage 5 Kidney failure Less than 15 GFR calculated using the CKD-Epi Creatinine Equation (2020): eGFR = 142 X min(SCr/?, 1)? X max(SCr /?, 1)-1.200 X 0.9938Age X 1.012 [if female] Abbreviations/Units: eGFR (estimated glomerular filtration rate) = mL/min/1.73 m2 SCr (standardized serum creatinine) = mg/dL ? = 0.7 (females) or 0.9 (males) ? = -0.241 (females) or -0.302 (males) min = indicates the minimum of SCr/? or 1 max = indicates the maximum of SCr/? or 1 Age = years Performed By: #### E GFR ####[address] [address] ABO/Rhon 08-10-2022 ABO/Rh ABO/Rh: O NEG Normal [facility] Comment on above: Performed By: #### A BORH ####[address] [address] ABSC Autoon 08-10-2022 ABSC Auto Negative Normal [facility] Comment on above: Performed By: #### A SA ####[address] [address] CBC w/ Diffon 08-10-2022 Erythrocyte distribution width (RBC) [Ratio] 13.3 % Normal 11.6-14.8 [facility] Comment on above: Performed By: #### C [id number] #### [place] [id number] Hematocrit (Bld) [Volume fraction] 44.0 % Normal 36.0-46.0 [facility] Comment on above: Performed By: #### C [id number] #### [place] [address] Hemoglobin (Bld) [Mass/Vol] 15.0 g/dL Normal 12.0-16.0 [facility] Comment on above: Performed By: #### C [id number] #### [address] [address] MCH (RBC) [Entitic mass] 32.6 pg Normal 27.0-35.0 [facility] Comment on above: Performed By: #### C [id number] #### [place] [address] MCHC 34.0 % Normal 31.0-37.0 [facility] Comment on above: Performed By: #### C [id number] #### [place] [address] MCV (RBC) [Entitic vol] 95.8 fL Normal 80.0-100.0 [facility] Comment on above: Performed By: #### C [id number] #### [place] [id number] Platelet 298 x10*3/mcL Normal 150-350 [facility] Comment on above: Performed By: #### C [id number] #### [place] [id number] Platelet mean volume (Bld) [Entitic vol] 10.1 fL Normal 6.7-10.6 [facility] Comment on above: Performed By: #### C [id number] #### [place] [address] RBC 4.59 x10*6/mcL Normal 3.80-5.20 [facility] Comment on above: Performed By: #### C [id number] #### [place] [id number] WBC 12.9 x10*3/mcL High 4.5-11.0 [facility] Comment on above: Performed By: #### C [id number] #### [place] [id number] CMPon 08-10-2022 Albumin [Mass/Vol] 4.4 g/dL Normal 3.2-4.9 [facility] Comment on above: Performed By: #### C OMP ####[place] [id number] Albumin/Globulin [Mass ratio] 1.4 {ratio} Normal 1.1-2.2 [facility] Comment on above: Performed By: #### C OMP ####[place] [id number] Alk Phos 75 IU/L Normal 32-91 [facility] Comment on above: Performed By: #### C OMP ####[address] [address] ALT [Catalytic activity/Vol] 14 U/L Normal 14-54 [facility] Comment on above: Performed By: #### C OMP ####[address] [address] Anion gap [Moles/Vol] 13 mmol/L Normal 7-17 [facility] Comment on above: Performed By: #### C OMP ####[address] [address] AST [Catalytic activity/Vol] 20 U/L Normal 15-41 [facility] Comment on above: Performed By: #### C OMP ####[address] [address] Bili Total 0.6 mg/dL Normal 0.3-1.2 [facility] Comment on above: Performed By: #### C OMP ####[address] [address] Calcium [Mass/Vol] 9.3 mg/dL Normal 8.5-10.3 [facility] Comment on above: Performed By: #### C OMP ####[address] [address] Chloride [Moles/Vol] 103 mmol/L Normal 98-110 [facility] Comment on above: Performed By: #### C OMP ####[address] [address] CO2 [Moles/Vol] 24 mmol/L Normal 22-32 [facility] Comment on above: Performed By: #### C OMP ####[address] [address] Creatinine [Mass/Vol] 0.85 mg/dL Normal 0.44-1.03 [facility] Comment on above: Performed By: #### C OMP ####[address] [place] [address] Glucose [Mass/Vol] 108 mg/dL High 70-99 [facility] Comment on above: Performed By: #### C OMP ####[address] [address] Potassium [Moles/Vol] 3.7 mmol/L Normal 3.4-4.8 [facility] Comment on above: Performed By: #### C OMP ####[address] [address] Protein [Mass/Vol] 7.5 g/dL Normal 6.5-8.1 [facility] Comment on above: Performed By: #### C OMP ####[address] [address] Sodium [Moles/Vol] 136 mmol/L Normal 133-142 [facility] Comment on above: Performed By: #### C OMP ####[address] [address] Urea nitrogen [Mass/Vol] 15 mg/dL Normal 8-26 [facility] Comment on above: Performed By: #### C OMP ####[address] [address] Urea nitrogen/Creatinine [Mass ratio] 17.6 mg/mg Normal 10.0-20.0 [facility] Comment on above: Performed By: #### C OMP ####[address] [address] Diff Autoon 08-10-2022 Baso Absolute 0.1 x10*3/mcL Normal 0.0-0.2 [facility] Comment on above: Performed By: #### . Automated Diff ####[address] [address] Basophils/100 WBC (Bld) 0.4 % Normal 0.0-1.5 [facility] Comment on above: Performed By: #### . Automated Diff ####[address] [address] Eos Absolute 0.1 x10*3/mcL Normal 0.0-0.4 [facility] Comment on above: Performed By: #### . Automated Diff ####[address] [address] Eosinophils/100 WBC (Bld) 0.9 % Normal 0.0-5.4 [facility] Comment on above: Performed By: #### . Automated Diff ####[address] [address] Lymph Absolute 3.8 x10*3/mcL Normal 1.0-4.8 [facility] Comment on above: Performed By: #### . Automated Diff ####[address] [address] Lymphocytes/100 WBC (Bld) 29.6 % Normal 27.2-40.8 [facility] Comment on above: Performed By: #### . Automated Diff ####[address] [address] [place] Absolute 0.8 x10*3/mcL Normal 0.1-1.1 [facility] Comment on above: Performed By: #### . Automated Diff ####[address] [address] Monocytes/100 WBC (Bld) 5.9 % Normal 3.7-11.9 [facility] Comment on above: Performed By: #### . Automated Diff ####[address] [address] Neutro Absolute 8.1 x10*3/mcL High 1.8-7.7 [facility] Comment on above: Performed By: #### . Automated Diff ####[address] [address] Neutro Auto 63.2 % Normal 47.2-70.8 [facility] Comment on above: Performed By: #### . Automated Diff ####[address] [address] HbA1c w/Rflx Fructosamineon 08-10-2022 Glucose [Mass/Vol] 128 mg/dL High 68-114 [facility] Comment on above: Result Comment: Math ematical Calc approx. The mean gluc equivalency of A1c Performed By: #### C [id number] #### [address] [address] Hgb A1c 6.1 % A1c High 4.0-5.6 [facility] Comment on above: Result Comment: Refe rence Range: 4.0 - 5.6 % Normal 5.7 - 6.4 % Pre-Diabetes > 6.5 % Diabetes Performed By: #### C [id number] #### [address] [address] PTon 08-10-2022 INR Coag (PPP) [Relative time] 1.0 {INR} Normal <=3.5 [facility] Comment on above: Result Comment: INR has no normal range. INR Therapeutic range is: 2.0-3.0 (AF, CVA, TIAs, DVT prophylaxis, acute DVT) 2.5-3.5 ([facility] heart valves, recurrent thrombosis/emboli) Performed By: #### C [id number] #### [address] [address] PT Coag (PPP) [Time] 10.7 s Normal 9.3-11.9 [facility] Comment on above: Performed By: #### C [id number] #### [address] [address] PTTon 08-10-2022 aPTT Coag (Bld) [Time] 20.9 s Normal 20.6-29.2 [facility] Comment on above: Performed By: #### P TT ####[address] [address] Provider Letteron 08-10-2022 Provider Letter Gayla Martinez CNP [address] [place] [address] Re: Stephan López Date of Visit: 08/10/2022 Dear Gayla Martinez CNP, Let me know if you have any questions or concerns. Sincerely, Lin Cintron Providers: [CC Letter Providers Please see attached lab results The following document(s) were included in the letter: August 10, 2022 13:04:48 EDT - (08/10/2022) Reminder Message Normal [facility] Provider Letter Gayla Martinez, GAURAV [address] [place] [address] Re: Stephan López Date of Visit: 08/10/2022 Dear Gayla Martinez CNP, Let me know if you have any questions or concerns. Sincerely, Lin Cintron Providers: [CC Letter Providers Please see attached ECG results The following document(s) were included in the letter: August 10, 2022 13:05:57 EDT - (08/10/2022) Reminder Message Normal [facility] UA w Culture if Indon 2022 Color (U) Yellow Normal [facility] Comment on above: Performed By: #### U CI ####[address] [address] Ketones Ql (U) Negative Normal Negative [facility] Comment on above: Performed By: #### U CI ####[address] [address] UA Blood Negative Normal Negative [facility] Comment on above: Performed By: #### U CI ####[address] [address] UA Clarity Clear Normal [facility] Comment on above: Performed By: #### U CI ####[address] [address] UA Glucose Normal Normal Negative [facility] Comment on above: Performed By: #### U CI ####[address] [address] UA Leukocyte Esterase Negative Normal Negative [facility] Comment on above: Performed By: #### U CI ####[address] [address] UA Nitrite Negative Normal Negative [facility] Comment on above: Performed By: #### U CI ####[place] [id number] UA pH 5.0 Normal 4.5 - 7.8 [facility] Comment on above: Performed By: #### U CI ####[address] [address] UA Protein 10 mg/dL Normal Negative [facility] Comment on above: Performed By: #### U CI ####[place] [address] UA Source Clean Catch Normal [facility] Comment on above: Performed By: #### U CI ####[place] [address] UA Spec Grav 1.025 Normal 1.003-1.035 [facility] Comment on above: Performed By: #### U CI ####[place] [address] UA Urobilinogen Normal Normal 0.2 - 1.0 [facility] Comment on above: Performed By: #### U CI ####[place] [id number] Urobilinogen (U) [Mass/Vol] Negative Normal Negative [facility] Comment on above: Performed By: #### U CI ####[place] [id number] XR Chest 2 Viewson 3 XR Chest 2 Views CHEST PA/AP and LATERAL CLINICAL HISTORY: Preop. COMPARISON: 02/03/2011. FINDINGS: LUNGS: Clear of pneumonia and congestion. PLEURA: No pleural effusions, thickening, or pneumothorax. HEART: Normal in size and configuration. MEDIASTINUM AND GLYNN: No widening or enlargement. GREAT VESSELS: Normal. BONES: Normal. SOFT TISSUES: Normal. IMPRESSION: 1. No active cardiopulmonary disease. Final Dictated by: Zaheer Chavez MD Dictated DT/TM: 08/10/2022 11:17 am Signed by: Zaheer Chavez MD Signed (Electronic Signature): 08/10/2022 11:17 am (If Report Is Signed, Electronically Signed in Other Vendor System) [employer] [facility] Neurosurgery Office/Clinic Yair pittman 07-23-2022 Neurosurgery Office/Clinic Note Chief Complaint Patient is being seen for a back follow up. History of Present Illness The patient is a pleasant 62-year-old right-handed female with history of omu-kvanaye-yergvfibp diabetes mellitus diagnosed in 2009, chronic nicotine use with COPD, Munoz's esophagus and recently diagnosed pericardial effusion who returns to the neurosurgical office on behalf of referral from Gayla Bradley CNP regarding lumbosacral pain with radiation into the bilateral lower extremities. Imaging of the lumbar spine reveals severe central canal stenosis L3-4 and L4-5 with left L4-5 synovial cyst. There is anterior listhesis L4-5 measuring approximately 10 mm on standing films. She was last seen in the neurosurgical office 06/24/2022 at which time we discussed the option of surgical intervention in the form of an L3-5 decompression and posterior spinal fusion with instrumentation. The patient and her were made aware of surgical risks and benefits, postoperative restrictions, expected hospital stay and overall recovery time. The patient has opted for surgical intervention, but was provided time to discontinue nicotine use due to the known deleterious effects on bony fusion as well as increased vladimir-operative risks. The patient notes that she discontinued cigarettes several days ago without much difficulty, though admits that she did smoke 2 cigarettes earlier today due to having an unusually stressful day. She understands the importance of discontinuing nicotine prior to surgical intervention. She denies any significant change in symptom profile since the time of her last visit. She describes unchanged low back pain with radiation into the bilateral lower extremities, left more so than right. Currently, back pain is described as sharp and stabbing. Pain is more present than absent at this point though varies in day today in terms of severity. She describes pain affecting the thoracolumbar junction, lumbar spine and lumbosacral junction in addition to the sacroiliac areas. Pain can radiate into the gluteal areas and anterior thighs to the knee occasionally into the pretibial areas, left more so than right. She also reports intermittent radiation of pain throughout the posterior thighs. She describes a chronic numbness within the right foot in addition to numbness/paresthesia intermittently throughout the left leg. Ambulation is limited due to her pain syndrome. She reports that she often requires a cane or a cart at the grocery store for ambulation assistance. She describes more recent pain exacerbations when standing and walking that makes it difficult putting weight on the left leg. She denies urinary or bowel incontinence; no saddle paresthesia. Recent imaging (provider interpretation): MRI cervical spine 05/29/2022 at [facility] reveals multilevel degenerative disc disease, most notably C5-6, C6-7. C3-4 reveals severe left neuroforaminal stenosis. C5-6 reveals mild central stenosis secondary to broad-based disc bulge with moderate to severe right and mild left neuroforaminal stenosis. C6-7 reveals moderately severe central stenosis without cord compression or signal change. Moderate to severe left-sided neuroforaminal stenosis. C7-T1 reveals moderate right neuroforaminal stenosis secondary to foraminal disc bulge. Cervical flexion/extension x-rays 05/29/2022 reveals straightening of lordosis within the lower cervical spine and cervicothoracic junction. Multilevel degenerative disc disease most notably C5-6, C6-7. Anterolisthesis at C4-5 which does reveal some dynamism though no overt instability. MRI lumbar spine 04/29/2022 at [facility] reveals multilevel degenerative disc disease. Significant facet arthropathy throughout the mid to lower lumbosacral spine. Anterior listhesis L4-5, retrolisthesis L2-3. At L1-2, there is a centralized disc bulge without overt neurocompression. L2-3 reveals broad-based disc bulge, right greater than left facet arthropathy leading to moderate bilateral neuroforaminal stenosis. L3-4 reveals significant facet arthropathy, ligamentum flavum hypertrophy and epidural lipomatosis leading to severe central stenosis with moderate to severe left and moderate right neuroforaminal narrowing. L4-5 reveals broad-based disc bulge, anterior listhesis, significant facet arthropathy, ligamentum flavum hypertrophy and epidural lipomatosis along with left sided facet cyst leading to severe central canal stenosis, bilateral lateral recess constriction. Severe left and moderate to severe right neuroforaminal stenosis at this level. L5-S1 reveals mild right-sided lateral recess constriction. Severe bilateral neuroforaminal narrowing noted secondary to disc degeneration and foraminal collapse. MRI thoracic spine 04/29/2022 reveals multilevel degenerative disc disease with mild disc bulges T8-9, T9-10. At T12-L1, there is a right paracentral disc bulge with slight flattening of the anterior cord without overt cord compression or significant central canal stenosis. At C6-7, there is (more content not included)... Normal [facility] Neurosurgery Office/Clinic Note Chief Complaint Patient is being seen for a back follow up. Physical Exam Vitals & Measurements HR: 91 (Peripheral) BP: 127/81 SpO2: 95 HT: 168 cm WT: 72.7 kg WT: 72.7 kg (Dosing) BMI: 25.76 Additional Vitals BP Position/Location: Sitting, Right arm Assessment/Plan Pleasant 62-year-old female with a history of diabetes, COPD, chronic nicotine abuse which has essentially terminated other than 2 cigarettes today due to high stress, who presents with low back pain and neurogenic claudication. The patient has no motor neuropathy but has had failure of adequate symptom control or comfort in spite of conservative management including medication, pain management, physical modalities. Her imaging reveals severe spinal stenosis at L4-5 and to a lesser degree L3-4 with spondylolisthesis with instability. Given that the patient has essentially terminated nicotine, it appears reasonable to offer her definitive management given the failure of conservative therapy. She is made aware of the alternatives as well as opportunity for second opinion. She is also made aware of the conduct of this procedure such that she will stay in the hospital for 2 and half to 3 days. She is educated as to the expected convalescence and restrictions after surgery as well as the risk including the risk of procedure including infection, bleeding, CSF leak, neurologic injury, neuropathic pain syndrome, peridural fibrosis, failure for improvement, incomplete benefit, new neurologic deficit, spinal instability, coma, , paralysis, deep venous thrombosis, pulmonary embolism as well as pseudoarthrosis, adjacent segment disease, hardware failure or pullout, ischemic optic neuropathy with permanent blindness, reoperation either delayed or acute. Patient acknowledges the possible use of bone morphogenetic protein to stimulate fusion and she is educated regarding the previous class action suit against this product, particularly insofar as relationship to cancer is concerned and the relative merits and demerits and scientific literature regarding this claim. She acknowledges and she and her do not believe they need a second opinion and she would like to proceed in the near future. Patient will terminate all NSAIDs/herbal therapies 2 weeks prior to intervention and receive medical clearance from primary provider The surgeon personally met with the patient performed directed history, physical, review of imaging and performed full surgical consent. All questions answered to her satisfaction and her and they are grateful Medical Decision Making Chronic conditions NOT treated during this visit that affected my overall medical decision making: [] Treatment plans discussed but not opted for at this time: [] Prescribed medication that requires intensive monitoring for toxicity: [] I have reviewed the patient?s medication list for medication interactions/contraind ications and/or for upcoming procedures: [yes or no] Time Spent with the Patient I have personally spent [] minutes on this date, directly related to today's patient visit, including pre and post visit work, for this date of service. Time listed does not include time spent on separately billable services. Problem List/Past Medical History Ongoing Back pain COPD - Chronic obstructive pulmonary disease Diabetes mellitus Gastric ulcer Historical Barretts esophagus COPD Degenerative disc disease Depression screening Diabetes type 2 on insulin Dyspnea Hyperlipidemia Pericardial effusion Unintentional weight loss Procedure/Surgical History CAUDAL SVITLANA REMOVE TONSILS AND ADENOIDS RFA RIGHT L4/5 AND 5/1 REMOVE PILONIDAL CYST SIMPLE (1980) mammogram (08/14/2021) COLONOSCOPY & POLYPECTOMY (09/08/2021) Medications atorvastatin 20 mg oral tablet, 20 mg= 1 tabs, Oral, Daily blood glucose monitor, Daily gabapentin 400 mg oral capsule, 400 mg= 1 caps, Oral, TID lancets, blood glucose lisinopril 2.5 mg oral tablet meloxicam 15 mg oral tablet, 15 mg= 1 tabs, Oral, Daily, Not taking: Patient is currently out of med, but states that she only takes it prn. metFORMIN 500 mg oral tablet, 500 mg= 1 tabs, Oral, BID omeprazole 40 mg oral delayed release capsule, 40 mg= 1 caps, Oral, Daily pregabalin 100 mg oral capsule tiZANidine 4 mg oral capsule, See Instructions tiZANidine 4 mg oral tablet Trelegy Ellipta, Daily, Unable to obtain: Insurance stopped paying for med. Trelegy Ellipta inhalation powder Allergies No Known Medication Allergies Social History Alcohol Never Home/Environment Lives with Significant other. Nutrition/Health Caffeine intake amount: 1 CAN OF POP A DAY. Sexual Sexually active: Yes. Substance Abuse Denies All Tobacco 10 or more cigarettes (1/2 pack or more)/day in last 30 days Use:. Cigarettes, 1 per day. Packs Family History Diabetes mellitus: Father. Heart disease: Mother, Father and Grandmother (M). Mental disorder: Mother.Negative: Sibling. I (more content not included)... Normal [facility] Office Visiton 07-03-2022 Follow-up visit [id number] James López flavio Ceballos 1960 F Date Provider Department Center 07/03/2022 Dory-INA JOHNSON ROXY Carlos Alberto [facility] Family History Problem Relation Age of Onset Other Mother Heart attack Father Other Father Other Father Other Maternal Grandmother Family Status - Relation Status Age at Mother Father Maternal Grandmother Level of Service:04546 [place] OFFICE/OUTPATIENT ESTABLISHED LOW MDM 20-29 MIN Reason for Visit and Comments: Hypertension [832476] pericardial effusion [Other] Normal [facility] Neurosurgery Office/Clinic N oteon 06-24-2022 Neurosurgery Office/Clinic Note Chief Complaint Patient is being seen for a back follow up. History of Present Illness The patient is a pleasant 62-year-old right-handed female with history of amr-aafgehd-kqpofjxyh diabetes mellitus diagnosed in 2009, chronic nicotine use with COPD, Munoz's esophagus and recently diagnosed pericardial effusion who returns to the neurosurgical office on behalf of referral from Gayla Bradley CNP regarding lumbosacral pain with radiation into the bilateral lower extremities. Doing of the lumbar spine reveals severe central canal stenosis L3-4 and L4-5 with left L4-5 synovial cyst. There is anterior listhesis L4-5 measuring approximately 10 mm on standing films. She was last seen in the neurosurgical office 05/05/2022 at which time she noted unchanged low back and lower extremity symptoms though also increased cervicalgia with discomfort into the left upper extremity as well as intermittent numbness and paresthesia into the left hand. She returns today having undergone MRI and flexion/extension x-rays of the cervical spine. Results detailed below. Since her last visit, she still notes rare numbness/paresthesia in the left hand though denies any significant left upper extremity pain. She notes mild intermittent cervicalgia though overall cervical spine and upper extremity symptoms have significantly improved. She describes unchanged low back pain with radiation into the bilateral lower extremities, left more so than right. Currently, back pain is described as sharp and stabbing. Pain is more present than absent at this point though varies in day today in terms of severity. She describes pain affecting the thoracolumbar junction, lumbar spine and lumbosacral junction in addition to the sacroiliac areas. Pain can radiate into the gluteal areas and anterior thighs to the knee occasionally into the pretibial areas, left more so than right. She also reports intermittent radiation of pain throughout the posterior thighs. She describes a chronic numbness within the right foot in addition to numbness/paresthesia intermittently throughout the left leg. Ambulation is limited due to her pain syndrome. She reports that she often requires a cane or a cart at the grocery store for ambulation assistance. She describes more recent pain exacerbations when standing and walking that makes it difficult putting weight on the left leg. She denies urinary or bowel incontinence; no saddle paresthesia. Recent imaging (provider interpretation): MRI cervical spine 05/29/2022 at [facility] reveals multilevel degenerative disc disease, most notably C5-6, C6-7. C3-4 reveals severe left neuroforaminal stenosis. C5-6 reveals mild central stenosis secondary to broad-based disc bulge with moderate to severe right and mild left neuroforaminal stenosis. C6-7 reveals moderately severe central stenosis without cord compression or signal change. Moderate to severe left-sided neuroforaminal stenosis. C7-T1 reveals moderate right neuroforaminal stenosis secondary to foraminal disc bulge. Cervical flexion/extension x-rays 05/29/2022 reveals straightening of lordosis within the lower cervical spine and cervicothoracic junction. Multilevel degenerative disc disease most notably C5-6, C6-7. Anterolisthesis at C4-5 which does reveal some dynamism though no overt instability. MRI lumbar spine 04/29/2022 at [facility] reveals multilevel degenerative disc disease. Significant facet arthropathy throughout the mid to lower lumbosacral spine. Anterior listhesis L4-5, retrolisthesis L2-3. At L1-2, there is a centralized disc bulge without overt neurocompression. L2-3 reveals broad-based disc bulge, right greater than left facet arthropathy leading to moderate bilateral neuroforaminal stenosis. L3-4 reveals significant facet arthropathy, ligamentum flavum hypertrophy and epidural lipomatosis leading to severe central stenosis with moderate to severe left and moderate right neuroforaminal narrowing. L4-5 reveals broad-based disc bulge, anterior listhesis, significant facet arthropathy, ligamentum flavum hypertrophy and epidural lipomatosis along with left sided facet cyst leading to severe central canal stenosis, bilateral lateral recess constriction. Severe left and moderate to severe right neuroforaminal stenosis at this level. L5-S1 reveals mild right-sided lateral recess constriction. Severe bilateral neuroforaminal narrowing noted secondary to disc degeneration and foraminal collapse. MRI thoracic spine 04/29/2022 reveals multilevel degenerative disc disease with mild disc bulges T8-9, T9-10. At T12-L1, there is a right paracentral disc bulge with slight flattening of the anterior cord without overt cord compression or significant central canal stenosis. At C6-7, there is a broad-based disc bulge leading to moderate to moderately severe central stenosis though this is incomplete completely evaluated. Lumbar flexion/extension x-rays 04/29/2022 reveals multilevel degenerative disc disease. There is anterior listhesis L4-5 measuring appro (more content not included)... Normal [facility] PROF CHEM 8 (BAS METB)on Anion gap [Moles/Vol] 12.9 mmol/L Normal [facility] Comment on above: Performed By: #### C BC #### [facility] [address] [address] [address] Yariel Herrera Calcium [Mass/Vol] 9.0 mg/dL Normal 8.5-10.1 [facility] Comment on above: Performed By: #### C BC #### [facility] [address] [address] [address] Yariel Herrera Chloride [Moles/Vol] 106 mmol/L Normal 98-[address] [facility] Comment on above: Performed By: #### C BC #### [facility] [address] [address] [address] Yariel Herrera CO2 [Moles/Vol] 28.3 mmol/L Normal 21.0-32.0 [facility] Comment on above: Performed By: #### C BC #### [facility] [address] [address] [address] Yariel Herrera Creatinine [Mass/Vol] 0.81 mg/dL Normal 0.55-1.[address] [facility] Comment on above: Performed By: #### C BC #### [facility] [address] [address] [address] Yariel Herrera EGFR-AF FINNISH >60 Normal >=60 [facility] Comment on above: Performed By: #### C BC #### [facility] [address] [place] [address] Dr. Yariel Herrera EGFR-NON AF FINNISH >60 Normal >=[address] [facility] Comment on above: Performed By: #### C BC #### [facility] [address] [address] [address] Yariel Herrera Glucose [Mass/Vol] 103 mg/dL Normal 74-106 [facility] Comment on above: Performed By: #### C BC #### [facility] [address] [place] [address] Dr. Yariel Herrera Potassium [Moles/Vol] 4.2 mmol/L Normal 3.5-5.[address] [facility] Comment on above: Performed By: #### C BC #### [facility] [address] [place] [address] Dr. Yariel Herrera Sodium [Moles/Vol] 143 mmol/L Normal 136-145 [facility] Comment on above: Performed By: #### C BC #### [facility] [address] [place] [address] Dr. Yariel Herrera Urea nitrogen [Mass/Vol] 9.0 mg/dL Normal 7.0-18.[address] [facility] Comment on above: Performed By: #### C BC #### [facility] [address] [place] [address] Dr. Yariel Herrera Urea nitrogen/Creatinine [Mass ratio] 11.1 mg/mg Normal [facility] Comment on above: Performed By: #### C BC #### [facility] [address] [place] [address] Dr. Yariel Herrera 37on 06-10-2022 37 Start lisinopril 2.5 mg daily, Have labs/blood checked in 1 week for kidney function Monitor b/p at home 1-2 times/day and record on a log- bring with her to next visit. If you notice a dry, persistent cough- stop lisinopril and call office please. Normal [facility] Office Visiton 06-10-2022 Follow-up visit [id number] James López 1960 F Date Provider Department Center 06/10/2022 Dory-ALEXINA Buck CARD [facility] Family History Problem Relation Age of Onset Other Mother Heart attack Father Other Father Other Father Other Maternal Grandmother Family Status - Relation Status Age at Mother Father Maternal Grandmother Level of Service:69249 [place] OFFICE/OUTPATIENT ESTABLISHED MOD MDM 30-39 MIN Normal [facility] ECHOCARDIO M/2D COMPLETEon 0 05-08-2022 ECHOCARDIO M/2D COMPLETE Patient: STEPHAN LÓPEZ. Exam Date: 05/08/2022 : 1960 Gender:F Ordering : CARL WILLIS Admission #: [id number] Family : GAURAV MARTINEZ [facility] Order #: [id number] CLICK HERE TO VIEW EXAM ECHOCARDIOGRAM REPORT PROCEDURE: CARDIO PULMONARY ECHOCARDIO M/2D COMP INDICATIONS: Pleural effusion, diabetes, smoker COMPARISON: None. DESCRIPTION: COMPLETE ECHOCARDIOGRAM Real-time transthoracic echocardiography with 2D, M-mode, spectral and color flow Doppler performed. QUALITY: Technical quality was good. LEFT VENTRICLE: Normal chamber size. Proximal septal hypertrophy (sigmoid septum). LV EF: Normal left ventricular ejection fraction, (>55%). DIASTOLIC: Normal diastolic function. ATRIAL SEPTUM: Visually appears intact. LEFT ATRIUM: Normal chamber size. RIGHT ATRIUM: Normal chamber size. RIGHT VENTRICLE: Normal chamber size. Normal right ventricular systolic function. TRICUSPID VALVE: Normal mobility and thickness. No stenosis with no regurgitation. MITRAL VALVE: Normal mobility and thickness. No evidence of mitral valve stenosis. There is no mitral annular calcification. No mitral regurgitation. AORTIC VALVE: Normal trileaflet appearance. No visible sclerosis. Normal leaflet mobility. No evidence of aortic valve stenosis. No aortic regurgitation. AORTIC ROOT: Normal diameter and appearance. PULMONIC VALVE: Normal thickness and mobility. No stenosis. No regurgitation. PERICARDIUM: Anterior free space; trivial effusion versus fat pad. IVC: Collapses with inspirations. CONCLUSION: Global left ventricular systolic function is normal; visually estimated ejection fraction is 55 to 60%. No wall motion abnormalities. Normal diastolic function. Right ventricle is normal in size and systolic function. No significant valvular abnormalities. Anterior free space; trivial effusion versus fat pad. Adult Echocardiography Procedure Report Left Ventricle LVEDD (3.7 - 5.6 cm): 3.76 cm, 3.86 cm LVESD (2.2 - 4.0 cm): 3.12 cm LVIVS thickness (0.6 - 1.2 cm): 1.26 cm LVPW thickness (0.5 - 1.0 cm): 1.02 cm e': 0.10 m/s E - e': 4.15 LVOT Max Gradient: 2.36 mm[Hg], 2.29 mm[Hg], 2.36 mm[Hg], 2.29 mm[Hg] Peak Velocity (LVOT): 0.77 m/s, 0.76 m/s, 0.77 m/s, 0.76 m/s Mean Velocity (LVOT): 0.50 m/s, 0.47 m/s, 0.50 m/s, 0.47 m/s LVOT Diameter 2.26 cm Left Ventricular Ejection Fraction: 38.36 %, 36.43 % Left Atrium LA Volume Index (2D A2C): 48.12 ml, 48.12 ml Left Atrium Systolic Dimension: 3.86 cm Mitral Valve MV E to A Ratio: 0.73 Mitral Valve A-Wave Peak Velocity: 0.59 m/s Mitral Valve E-Wave Peak Velocity: 0.43 m/s Right Ventricle Aorta AO Root Diam: 3.15 cm Aortic Valve AoV Area (Peak Rodolfo): 3.22 cm2, 3.20 cm2, 3.24 cm2, 3.20 cm2, 3.24 cm2 AoV Area (VTI): 2.87 cm2, 2.70 cm2, 3.06 cm2, 2.70 cm2, 3.05 cm2 Peak Velocity(Antegrade Flow): 0.96 m/s, 0.93 m/s, 0.96 m/s, 0.93 m/s Peak Gradient(Antegrade Flow): 3.69 mm[Hg], 3.48 mm[Hg], 3.69 mm[Hg], 3.48 mm[Hg] Mean Velocity(Antegrade Flow): 0.70 m/s, 0.66 m/s, 0.70 m/s, 0.66 m/s Mean Gradient(Antegrade Flow): 2.17 mm[Hg], 1.95 mm[Hg], 2.17 mm[Hg], 1.95 mm[Hg] Velocity Time Integral: 20.77 cm, 18.97 cm, 20.77 cm, 18.97 cm Tricuspid Valve Peak Velocity: 0.32 m/s Pulmonic Valve Peak Velocity: 0.73 m/s, 0.73 m/s Peak Gradient: 2.16 mm[Hg], 2.11 mm[Hg] Right Atrium Right Atrium Systolic Pressure: 26.60 ml, 26.60 ml Dictated by: Elie Garzon M.D. on 05/08/2022 at 14:18 Approved by: lEie Garzon M.D. on 05/08/2022 at 14:[address] [facility] Neurosurgery Office/Clinic N zain 05-05-2022 Neurosurgery Office/Clinic Note Chief Complaint Patient is being seen to review imaging. History of Present Illness The patient is a pleasant 61-year-old right-handed female with history of tqo-axelbrn-[id number] diabetes mellitus diagnosed in 2009, chronic nicotine use with COPD, Munoz's esophagus and recently diagnosed pericardial effusion who returns to the neurosurgical office on behalf of referral from Gayla Bradley CNP regarding lumbosacral pain with radiation into the bilateral lower extremities. She visited as a new patient 01/02/2022 and returns today having undergone a multitude of imaging including MRI and CT of the thoracic and lumbosacral spine, lumbar flexion/extension x-rays, x-ray scoliosis series and DEXA scan. Results detailed below. She denies any significant change in symptom profile since the time of her last visit with the exception of increased cervicalgia with discomfort in the left upper extremity as well as intermittent numbness/paresthesia and zinging sensation in the left hand. She denies any right upper extremity pain, numbness or paresthesia. She denies any upper extremity weakness. Initial visit: The patient reports back pain intermittently since she was 18 years old. She experienced pain exacerbations intermittently throughout the years which typically would benefit from chiropractic manipulation. Within the past year or so, the patient has experienced much more severe exacerbations of low back pain which she describes as sharp and stabbing. Pain is more present than absent at this point though varies in day today in terms of severity. She describes pain affecting the thoracolumbar junction, lumbar spine and lumbosacral junction in addition to the sacroiliac areas. Pain can radiate into the gluteal areas and anterior thighs to the knee occasionally into the pretibial areas. She also reports intermittent radiation of pain throughout the posterior thighs. She describes a chronic numbness within the right foot in addition to numbness/paresthesia intermittently throughout the left leg. Ambulation is limited due to her pain syndrome. She reports that she often requires a cane or a cart at the grocery store for ambulation assistance. She denies urinary or bowel incontinence; no saddle paresthesia. Recent imaging (provider interpretation): MRI lumbar spine 04/29/2022 at [facility] reveals multilevel degenerative disc disease. Significant facet arthropathy throughout the mid to lower lumbosacral spine. Anterior listhesis L4-5, retrolisthesis L2-3. At L1-2, there is a centralized disc bulge without overt neurocompression. L2-3 reveals broad-based disc bulge, right greater than left facet arthropathy leading to moderate bilateral neuroforaminal stenosis. L3-4 reveals significant facet arthropathy, ligamentum flavum hypertrophy and epidural lipomatosis leading to severe central stenosis with moderate to severe left and moderate right neuroforaminal narrowing. L4-5 reveals broad-based disc bulge, anterior listhesis, significant facet arthropathy, ligamentum flavum hypertrophy and epidural lipomatosis along with left sided facet cyst leading to severe central canal stenosis, bilateral lateral recess constriction. Severe left and moderate to severe right neuroforaminal stenosis at this level. L5-S1 reveals mild right-sided lateral recess constriction. Severe bilateral neuroforaminal narrowing noted secondary to disc degeneration and foraminal collapse. MRI thoracic spine 04/29/2022 reveals multilevel degenerative disc disease with mild disc bulges T8-9, T9-10. At T12-L1, there is a right paracentral disc bulge with slight flattening of the anterior cord without overt cord compression or significant central canal stenosis. At C6-7, there is a broad-based disc bulge leading to moderate to moderately severe central stenosis though this is incomplete completely evaluated. Lumbar flexion/extension x-rays 04/29/2022 reveals multilevel degenerative disc disease. There is anterior listhesis L4-5 measuring approximately 10 mm on neutral position. This increases to 11 mm in flexion and decreases to 7 mm in extension indicating instability. Retrolisthesis L2-3 measuring 7 mm without dynamic subluxation. X-ray scoliosis series 04/29/2022 reveals approximately 11 cm positive sagittal imbalance. There is approximately 6.5 cm coronal imbalance to the left. 11 degrees levoscoliosis of the thoracic spine with 9 degrees dextroscoliosis of the lumbar spine. CT thoracolumbar spine 04/29/2022 reveals anterior osteophytosis T10-11, T11-12 with mild vacuum disc phenomenon at these levels. There is ossification of the posterior longitudinal ligament L1-2, L2-3 as well as anterior osteophytosis L1-2. Significant facet arthropathy noted L3-4, L4-5 and L5-S1 with vacuum disc phenomenon L5-S1. Additional imaging: DEXA scan 04/29/2022 at [facility] revealing osteopenia with T score -1.2. Review of Systems Constitutional: [No fevers, chills, sweats] Eye: [No recent visual problems] ENMT: [No ear pain, nasal conge (more content not included)... Normal [facility] Provider Letteron 05-05-2022 Provider Letter Gayla Martinez CNP [address] [place] [id number] Re: Stephan López Date of Visit: 05/05/2022 Dear Gayla Martinez CNP, This patient was recently seen in the neurosurgical office. Please see attached note for further details. Let me know if you have any questions or concerns. Sincerely, MICHELLE Engle Providers: The following document(s) were included in the letter: May 05, 2022 15:17:18 EDT - (05/05/2022) Neurosurgery Office Visit Note Normal [facility] ABHINAV by IFAon 01-08-2022 Antinuclear Antibodies, IFA Negative Normal [facility] Comment on above: Result Comment: Nega tive <1:80 Borderline 1:80 Positive >1:80 ICAP nomenclature: AC-0 For more information about Hep-2 cell patterns use ANApatterns.org, the official website for the International Consensus on Antinuclear Antibody (ABHINAV) Patterns (ICAP). Performed By: #### A NALBA #### [facility] [address] [place] [address] Dr. Yariel Herrera CBC AUTO DIFFon 01-05-2022 BASO # 0.1 103/ul Normal 0.0-0.[address] [facility] Comment on above: Performed By: #### C BC #### [facility] [address] [place] [address] Dr. Yariel Herrera Basophils/100 WBC (Bld) 0.6 % Normal 0.2-2.[address] [facility] Comment on above: Performed By: #### C BC #### [facility] [address] [place] [address] Dr. Yariel Herrera EO # 0.2 103/ul Normal 0.0-0.[address] [facility] Comment on above: Performed By: #### C BC #### [facility] [address] [place] [address] Dr. Yariel Herrera Eosinophils/100 WBC (Bld) 1.4 % Normal 0.9-7.[address] [facility] Comment on above: Performed By: #### C BC #### [facility] [address] [place] [address] Dr. Yariel Herrera Erythrocyte distribution width (RBC) [Ratio] 13.6 % Normal 11.0-15.[address] [facility] Comment on above: Performed By: #### C BC #### [facility] [address] [place] [address] Dr. Yariel Herrera Hematocrit (Bld) [Volume fraction] 46.6 % Normal 36.0-48.0 [facility] Comment on above: Performed By: #### C BC #### [facility] [address] [place] [address] Dr. Yariel Herrera Hemoglobin (Bld) [Mass/Vol] 15.4 g/dL Normal 12.0-16.[address] [facility] Comment on above: Performed By: #### C BC #### [facility] [address] [place] [address] Dr. Yariel Herrera IG # 0.03 10e3/ul Normal 0.00-0.[address] [facility] Comment on above: Performed By: #### C BC #### [facility] [address] [place] [address] Dr. Yariel Herrera IG % 0.2 % Normal 0.0-0.[address] [facility] Comment on above: Performed By: #### C BC #### [facility] [address] [place] [address] Dr. Yariel Herrera LYMPH # 4.2 103/ul Critically high 1.2-3.[address] [facility] Comment on above: Performed By: #### C BC #### [facility] [address] [place] [address] Dr. Yariel Herrera Lymphocytes/100 WBC (Bld) 31.3 % Normal 20.5-60.[address] [facility] Comment on above: Performed By: #### C BC #### [facility] [address] [place] [address] Dr. Yariel Herrera MANUAL DIFF REQ NO Normal [facility] Comment on above: Performed By: #### C BC #### [facility] [address] [place] [address] Dr. Yariel Herrera MCH (RBC) [Entitic mass] 31.6 pg Normal 26.7-34.[address] [facility] Comment on above: Performed By: #### C BC #### [facility] [address] [place] [address] Dr. Yariel Herrera MCHC (RBC) [Mass/Vol] 33.0 g/dL Normal 29.9-35.[address] [facility] Comment on above: Performed By: #### C BC #### [facility] [address] [place] [address] Dr. Yariel Herrera MCV (RBC) [Entitic vol] 95.7 fL Normal 81.0-99.[address] [facility] Comment on above: Performed By: #### C BC #### [facility] [address] [place] [address] Dr. Yariel Herrera MONO # 0.9 103/ul Critically high 0.3-0.[address] [facility] Comment on above: Performed By: #### C BC #### [facility] [address] [place] [address] Dr. Yariel Herrera Monocytes/100 WBC (Bld) 6.8 % Normal 1.7-12.[address] [facility] Comment on above: Performed By: #### C BC #### [facility] [address] [place] [address] Dr. Yariel Herrera NEUT # 8.0 103/ul Critically high 1.4-6.[address] [facility] Comment on above: Performed By: #### C BC #### [facility] [address] [place] [address] Dr. Yariel Herrera Neutrophils/100 WBC (Bld) 59.7 % Normal 43.0-75.[address] [facility] Comment on above: Performed By: #### C BC #### [facility] [address] [place] [address] Dr. Yariel Herrera Platelet mean volume (Bld) [Entitic vol] 10.7 fL Normal 9.5-13.5 [facility] Comment on above: Performed By: #### C BC #### [facility] [address] [place] [address] Dr. Yariel Herrera PLT 340 103/ul Normal 150-450 [facility] Comment on above: Performed By: #### C BC #### [facility] [address] [place] [address] Dr. Yariel Herrera RBC 4.87 106/ul Normal 4.20-5.40 [facility] Comment on above: Performed By: #### C BC #### [facility] [address] [place] [address] Dr. Yariel Herrera WBC 13.4 103/ul Critically high 4.0-11.0 [facility] Comment on above: Performed By: #### C BC #### [facility] [address] [place] [address] Dr. Yariel Herrera FREE T4on 01-05-2022 Free T4 [Mass/Vol] 1.06 ng/dL Normal 0.76-1.46 [facility] Comment on above: Performed By: #### C BC #### [facility] [address] [address] [address] Yariel Herrera PROF 14(COMP METB)on 022 Albumin [Mass/Vol] 3.9 g/dL Normal 3.4-5.0 [facility] Comment on above: Performed By: #### C MP, TSH #### [facility] [address] [place] [address] Dr. Yariel Herrera Albumin/Globulin [Mass ratio] 1.1 {ratio} Normal [facility] Comment on above: Performed By: #### C MP, TSH #### [facility] [address] [place] [address] Dr. Yariel Herrera ALP [Catalytic activity/Vol] 99 U/L Normal 46-[address] [facility] Comment on above: Performed By: #### C MP, TSH #### [facility] [address] [place] [address] Dr. Yariel Herrera ALT [Catalytic activity/Vol] 17 U/L Normal 14-[address] [facility] Comment on above: Performed By: #### C MP, TSH #### [facility] [address] [place] [address] Dr. Yariel Herrera Anion gap [Moles/Vol] 10.1 mmol/L Normal [facility] Comment on above: Performed By: #### C MP, TSH #### [facility] [address] [place] [address] Dr. Yariel Herrera AST [Catalytic activity/Vol] 14 U/L Critically low 15-[address] [facility] Comment on above: Performed By: #### C MP, TSH #### [facility] [address] [place] [address] Dr. Yariel Herrera Bilirubin [Mass/Vol] 0.3 mg/dL Normal 0.2-1.[address] [facility] Comment on above: Performed By: #### C MP, TSH #### [facility] [address] [place] [address] Dr. Yariel Herrera Calcium [Mass/Vol] 9.4 mg/dL Normal 8.5-10.1 [facility] Comment on above: Performed By: #### C MP, TSH #### [facility] [address] [place] [address] Dr. Yariel Herrera Chloride [Moles/Vol] 103 mmol/L Normal 98-[address] [facility] Comment on above: Performed By: #### C MP, TSH #### [facility] [address] [place] [address] Dr. Yariel Herrera CO2 [Moles/Vol] 30.9 mmol/L Normal 21.0-32.0 [facility] Comment on above: Performed By: #### C MP, TSH #### [facility] [address] [place] [address] Dr. Yariel Herrera Creatinine [Mass/Vol] 0.88 mg/dL Normal 0.55-1.[address] [facility] Comment on above: Performed By: #### C MP, TSH #### [facility] [address] [place] [address] Dr. Yariel Herrera EGFR-AF FINNISH >60 Normal >=60 [facility] Comment on above: Performed By: #### C MP, TSH #### [facility] [address] [place] [address] Dr. Yariel Herrera EGFR-NON AF FINNISH >60 Normal >=[address] [facility] Comment on above: Performed By: #### C MP, TSH #### [facility] [address] [place] [address] Dr. Yariel Herrera Globulin (S) [Mass/Vol] 3.5 g/dL Normal [facility] Comment on above: Performed By: #### C MP, TSH #### [facility] [address] [address] [address] Yariel Herrera Glucose [Mass/Vol] 117 mg/dL Critically high 74-106 [facility] Comment on above: Performed By: #### C MP, TSH #### [facility] [address] [place] [address] Dr. Yariel Herrera Potassium [Moles/Vol] 4.0 mmol/L Normal 3.5-5.[address] [facility] Comment on above: Performed By: #### C MP, TSH #### [facility] [address] [address] [address] Yariel Herrera Protein [Mass/Vol] 7.4 g/dL Normal 6.4-8.2 [facility] Comment on above: Performed By: #### C MP, TSH #### [facility] [address] [place] [address] Dr. Yariel Herrera Sodium [Moles/Vol] 140 mmol/L Normal 136-145 [facility] Comment on above: Performed By: #### C MP, TSH #### [facility] [address] [place] [address] Dr. Yariel Herrera Urea nitrogen [Mass/Vol] 18.0 mg/dL Normal 7.0-18.[address] [facility] Comment on above: Performed By: #### C MP, TSH #### [facility] [address] [place] [address] Dr. Yariel Herrera Urea nitrogen/Creatinine [Mass ratio] 20.5 mg/mg Normal [facility] Comment on above: Performed By: #### C MP, TSH #### [facility] [address] [place] [address] Dr. Yariel Herrera TSHon 01-05-2022 TSH 1.380 uIU/mL Normal 0.358-3.740 [facility] Comment on above: Performed By: #### C MP, TSH #### [facility] [address] [place] [address] Dr. Yariel Herrera GLYCOHEMOGLOBIN A1Con 2021 ADA RECOMMENDATION SEE BELOW Normal [facility] Comment on above: Result Comment: ADA RECOMMENDED LIMIT 4.0 - 6.0 ADA THERAPEUTIC TARGET < 7.0 ACTION SUGGESTED > 7.0 Performed By: #### A 1C #### [facility] [address] [place] [address] Dr. Yariel Herrera Glucose [Mass/Vol] 137 mg/dL Normal [facility] Comment on above: Performed By: #### A 1C #### [facility] [address] [place], [place] [address] Dr. Yariel Herrera HbA1c (Bld) [Mass fraction] 6.4 % Critically high 4.5-6.2 [facility] Comment on above: Performed By: #### A 1C #### [facility] [address] [address] [address] Yariel Herrera ECHOCARDIO M/2D COMPLETEon 0 10-16-2021 ECHOCARDIO M/2D COMPLETE Patient: STEPHAN LÓPEZ Exam Date: 10/16/2021 : 1960 Gender:F Ordering : CARL WILLIS Admission #: [id number] Family : Order #: [id number] CLICK HERE TO VIEW EXAM ECHOCARDIOGRAM REPORT PROCEDURE: CARDIO PULMONARY ECHOCARDIO M/2D COMP INDICATIONS: Pericardial Effusion COMPARISON: None. DESCRIPTION: COMPLETE ECHOCARDIOGRAM Real-time transthoracic echocardiography with 2D, M-mode, spectral and color flow Doppler performed. QUALITY: Technical quality was good. LEFT VENTRICLE: Normal chamber size. Mild concentric left ventricular hypertrophy. Global left ventricular systolic function is normal. LV EF: Calculated left ventricular ejection fraction is 63% DIASTOLIC: Diastolic function is indeterminate. ATRIAL SEPTUM: LEFT ATRIUM: Normal chamber size. RIGHT ATRIUM: Normal chamber size. RIGHT VENTRICLE: Normal chamber size. Normal right ventricular systolic function. TRICUSPID VALVE: Normal mobility and thickness. No stenosis with trivial regurgitation. Unable to assess right-sided pressures due to lack of measurable tricuspid regurgitation. MITRAL VALVE: Normal mobility and thickness. No mitral valve prolapse. No evidence of mitral valve stenosis. There is no mitral annular calcification. No mitral regurgitation. AORTIC VALVE: Normal trileaflet appearance. No visible sclerosis. Normal leaflet mobility. No evidence of aortic valve stenosis. No aortic regurgitation. AORTIC ROOT: Normal diameter and appearance. PULMONIC VALVE: Normal thickness and mobility. No stenosis. Trivial regurgitation. PERICARDIUM: Trivial pericardial effusion. IVC: Collapses with inspirations. Normal size. PLEURA: CONCLUSION: 1. Mild concentric left ventricular hypertrophy. Normal ventricular systolic function. LVEF is 60 to 65%. 2. Normal right ventricular systolic function. 3. No significant valvular dysfunction. 4. Unable to assess right-sided pressures due to lack of measurable tricuspid regurgitation. 5. Trivial pericardial effusion. Dictated by: Joao Melvin M.D. on 10/16/2021 at 17:08 Approved by: Joao Melvin M.D. on 10/16/2021 at 17:[address] [facility] ECHOCARDIO M/2D COMPLETEon 0 09-16-2021 ECHOCARDIO M/2D COMPLETE Patient: STEPHAN LÓPEZ Exam Date: 09/16/2021 : 1960 Gender:F Ordering : [employer] GAYLA MARTINEZ [facility] Admission #: [id number] Family : Order #: [id number] CLICK HERE TO VIEW EXAM ECHOCARDIOGRAM REPORT PROCEDURE: CARDIO PULMONARY ECHOCARDIO M/2D COMP INDICATIONS: Pericardial effusion COMPARISON: None. DESCRIPTION: COMPLETE ECHOCARDIOGRAM Real-time transthoracic echocardiography with 2D, M-mode, spectral and color flow Doppler performed. QUALITY: Techincally difficult due to patients condition. 66 165# BP 134/86 LEFT VENTRICLE: Normal chamber size. Mild concentric left ventricular hypertrophy. LV EF: Normal left ventricular ejection fraction, (>55%). DIASTOLIC: Normal diastolic function. ATRIAL SEPTUM: Visually appears intact. LEFT ATRIUM: Normal chamber size. RIGHT ATRIUM: Normal chamber size. RIGHT VENTRICLE: Normal chamber size. Normal systolic function. TRICUSPID VALVE: Normal mobility and thickness. No stenosis with trivial regurgitation. Unable to assess right-sided pressures due to lack of measurable tricuspid regurgitation. MITRAL VALVE: Normal mobility and thickness. No evidence of mitral valve stenosis. There is no mitral annular calcification. No mitral regurgitation. AORTIC VALVE: Normal trileaflet appearance. No visible sclerosis. Normal leaflet mobility. No evidence of aortic valve stenosis. No aortic regurgitation. AORTIC ROOT: Normal diameter and appearance. PULMONIC VALVE: Normal thickness and mobility. No stenosis. No regurgitation. PERICARDIUM: Small anterior pericardial effusion. IVC: Collapses with inspirations. PLEURA: CONCLUSION: 1. Mild concentric left ventricular hypertrophy. LVEF is 55 to 60%. 2. Normal right ventricular systolic function. 3. No significant valvular dysfunction. 4. Small anterior pericardial effusion. Dictated by: Joao Melvin M.D. on 09/17/2021 at 12:56 Approved by: Joao Melvin M.D. on 09/17/2021 at 13:[address] [facility] CBC AUTO DIFFon 08-04-2021 BASO # 0.1 103/ul Normal 0.0-0.[address] [facility] Comment on above: Performed By: #### C BC #### [facility] [address] [address] [address] Yariel Herrera Basophils/100 WBC (Bld) 0.6 % Normal 0.2-2.[address] [facility] Comment on above: Performed By: #### C BC #### [facility] [address] [address] [address] Yariel Herrera EO # 0.1 103/ul Normal 0.0-0.[address] [facility] Comment on above: Performed By: #### C BC #### [facility] [address] [place] [address] Dr. Yariel Herrera Eosinophils/100 WBC (Bld) 0.9 % Normal 0.9-7.[address] [facility] Comment on above: Performed By: #### C BC #### [facility] [address] [place] [address] Dr. Yariel Herrera Erythrocyte distribution width (RBC) [Ratio] 13.8 % Normal 11.0-15.[address] [facility] Comment on above: Performed By: #### C BC #### [facility] [address] [place] [address] Dr. Yariel Herrera Hematocrit (Bld) [Volume fraction] 47.1 % Normal 36.0-48.[address] [facility] Comment on above: Performed By: #### C BC #### [facility] [address] [place] [address] Dr. Yariel Herrera Hemoglobin (Bld) [Mass/Vol] 15.2 g/dL Normal 12.0-16.[address] [facility] Comment on above: Performed By: #### C BC #### [facility] [address] [place] [address] Dr. Yariel Herrera IG # 0.04 10e3/ul Critically high 0.00-0.03 [facility] Comment on above: Performed By: #### C BC #### [facility] [address] [place] [address] Dr. Yariel Herrera IG % 0.3 % Normal 0.0-0.[address] [facility] Comment on above: Performed By: #### C BC #### [facility] [address] [place] [address] Dr. Yariel Herrera LYMPH # 3.7 103/ul Normal 1.2-3.[address] [facility] Comment on above: Performed By: #### C BC #### [facility] [address] [place] [address] Dr. Yariel Herrera Lymphocytes/100 WBC (Bld) 30.6 % Normal 20.5-60.[address] [facility] Comment on above: Performed By: #### C BC #### [facility] [address] [place] [address] Dr. Yariel Herrera MANUAL DIFF REQ NO Normal [facility] Comment on above: Performed By: #### C BC #### [facility] [address] [place] [address] Dr. Yariel Herrera MCH (RBC) [Entitic mass] 32.0 pg Normal 26.7-34.[address] [facility] Comment on above: Performed By: #### C BC #### [facility] [address] [place] [address] Dr. Yariel Herrera MCHC (RBC) [Mass/Vol] 32.3 g/dL Normal 29.9-35.[address] [facility] Comment on above: Performed By: #### C BC #### [facility] [address] [place] [address] Dr. Yariel Herrera MCV (RBC) [Entitic vol] 99.2 fL Critically high 81.0-99.[address] [facility] Comment on above: Performed By: #### C BC #### [facility] [address] [place] [address] Dr. Yariel Herrera MONO # 0.9 103/ul Critically high 0.3-0.8 [facility] Comment on above: Performed By: #### C BC #### [facility] [address] [place] [address] Dr. Yariel Herrera Monocytes/100 WBC (Bld) 7.4 % Normal 1.7-12.[address] [facility] Comment on above: Performed By: #### C BC #### [facility] [address] [address] [address] Yariel Herrera NEUT # 7.3 103/ul Critically high 1.4-6.5 [facility] Comment on above: Performed By: #### C BC #### [facility] [address] [address] [address] Yariel Herrera Neutrophils/100 WBC (Bld) 60.2 % Normal 43.0-75.[address] [facility] Comment on above: Performed By: #### C BC #### [facility] [address] [place] [address] Dr. Yariel Herrera Platelet mean volume (Bld) [Entitic vol] 11.7 fL Normal 9.5-13.[address] [facility] Comment on above: Performed By: #### C BC #### [facility] [address] [place] [address] Dr. Yariel Herrera PLT 330 103/ul Normal 150-450 [facility] Comment on above: Performed By: #### C BC #### [facility] [address] [place] [address] Dr. Yariel Herrera RBC 4.75 106/ul Normal 4.20-5.[address] [facility] Comment on above: Performed By: #### C BC #### [facility] [address] [place] [address] Dr. Yariel Herrera WBC 12.1 103/ul Critically high 4.0-11.0 [facility] Comment on above: Performed By: #### C BC #### [facility] [address] [place] [address] Dr. Yariel Herrera FREE T3on 08-04-2021 FREE T3 2.46 pg/mlL Normal 2.18-3.[address] [facility] Comment on above: Performed By: #### C BC #### [facility] [address] [place] [address] Dr. Yariel Herrera FREE T4on 08-04-2021 Free T4 [Mass/Vol] 1.08 ng/dL Normal 0.76-1.46 [facility] Comment on above: Performed By: #### F T4 #### [facility] [address] [place] [address] Dr. Yariel Herrera PROF 14(COMP METB)on 022 Albumin [Mass/Vol] 4.2 g/dL Normal 3.4-5.0 [facility] Comment on above: Performed By: #### C BC #### [facility] [address] [place] [address] Dr. Yariel Herrera Albumin/Globulin [Mass ratio] 1.2 {ratio} Normal [facility] Comment on above: Performed By: #### C BC #### [facility] [address] [place] [address] Dr. Yariel Herrera ALP [Catalytic activity/Vol] 87 U/L Normal 46-[address] [facility] Comment on above: Performed By: #### C BC #### [facility] [address] [place] [address] Dr. Yariel Herrera ALT [Catalytic activity/Vol] 25 U/L Normal 14-[address] [facility] Comment on above: Performed By: #### C BC #### [facility] [address] [place] [address] Dr. Yariel Herrera Anion gap [Moles/Vol] 13.3 mmol/L Normal [facility] Comment on above: Performed By: #### C BC #### [facility] [address] [place] [address] Dr. Yariel Herrera AST [Catalytic activity/Vol] 15 U/L Normal 15-37 [facility] Comment on above: Performed By: #### C BC #### [facility] [address] [place] [address] Dr. Yariel Herrera Bilirubin [Mass/Vol] 0.5 mg/dL Normal 0.2-1.[address] [facility] Comment on above: Performed By: #### C BC #### [facility] [address] [place] [address] Dr. Yariel Herrera Calcium [Mass/Vol] 9.6 mg/dL Normal 8.5-10.1 [facility] Comment on above: Performed By: #### C BC #### [facility] [address] [address] [address] Yariel Herrera Chloride [Moles/Vol] 103 mmol/L Normal 98-107 [facility] Comment on above: Performed By: #### C BC #### [facility] [address] [place] [address] Dr. Yariel Herrera CO2 [Moles/Vol] 28.9 mmol/L Normal 21.0-32.0 [facility] Comment on above: Performed By: #### C BC #### [facility] [address] [place] [address] Dr. Yariel Herrera Creatinine [Mass/Vol] 0.84 mg/dL Normal 0.55-1.02 [facility] Comment on above: Performed By: #### C BC #### [facility] [address] [place] [address] Dr. Yariel Herrera EGFR-AF FINNISH >60 Normal >=60 [facility] Comment on above: Performed By: #### C BC #### [facility] [address] [place] [address] Dr. Yariel Herrera EGFR-NON AF FINNISH >60 Normal >=[address] [facility] Comment on above: Performed By: #### C BC #### [facility] [address] [place] [address] Dr. Yariel Herrera Globulin (S) [Mass/Vol] 3.4 g/dL Normal [facility] Comment on above: Performed By: #### C BC #### [facility] [address] [place] [address] Dr. Yariel Herrera Glucose [Mass/Vol] 111 mg/dL Critically high 74-106 [facility] Comment on above: Performed By: #### C BC #### [facility] [address] [place] [address] Dr. Yariel Herrera Potassium [Moles/Vol] 4.2 mmol/L Normal 3.5-5.[address] [facility] Comment on above: Performed By: #### C BC #### [facility] [address] [place] [address] Dr. Yariel Herrera Protein [Mass/Vol] 7.6 g/dL Normal 6.4-8.2 [facility] Comment on above: Performed By: #### C BC #### [facility] [address] [address] [address] Yariel Herrera Sodium [Moles/Vol] 141 mmol/L Normal 136-145 [facility] Comment on above: Performed By: #### C BC #### [facility] [address] [address] [address] Yariel Herrera Urea nitrogen [Mass/Vol] 15.0 mg/dL Normal 7.0-18.[address] [facility] Comment on above: Performed By: #### C BC #### [facility] [address] [place] [address] Dr. Yariel Herrera Urea nitrogen/Creatinine [Mass ratio] 17.9 mg/mg Normal [facility] Comment on above: Performed By: #### C BC #### [facility] [address] [address] [address] Yariel Herrera TSHon 08-04-2021 TSH 1.073 uIU/mL Normal 0.358-3.740 [facility] Comment on above: Performed By: #### C BC #### [facility] [address] [place] [address] Dr. Yariel Herrera TSH RANGE SEE BELOW Normal [facility] Comment on above: Result Comment: <0.3 4 UIU/ml HYPERTHYROID 0.34-5.60 UIU/ml EUTHYROID >5.60 UIU/ml HYPOTHYROID Performed By: #### C BC #### [facility] [address] [place] [address] Dr. Yariel Herrera Encounters Encounter Date Encounter Type Care Provider Facility Start: 03-30-2023 ambulatory Dasha Sherwood acility:[facility] Start: 02-08-2023 End: 02-09-2023 ambulatory [facility]oner [facility] Start: 01-25-2023 End: 01-25-2023 ambulatory GAYLA MARTINEZ Not Available Start: 01-19-2023 End: 01[facility]: 12-22-2022 End: 12-23-2022 ambulatory Dasha Mayela Waggoner PA-C [facility] Start: 11-26-2022 End: 11-27-2022 [facility] Start: 11-23-2022 End: 11-24-2022 ambulatory Lara Mar MD Facility:[facility] Start: 10-15-2022 End: 10-16-2022 [facility] Start: 09-16-2022 End: 09-17-2022 [facility] Start: 08-21-2022 End: 08-24-2022 Evaluation and management of inpatient Delfino Snider III, MD Facility:[facility] Start: 08-14-2022 End: 08-15-2022 ambulatory Delfino Snider III, MD Facility:[facility] Start: 08-10-2022 End: 08-11-2022 ambulatory Delfino Snider III, MD Facility:[facility] Start: 08-06-2022 ambulatory Delfino Snider III, MD Facility:[facility] Start: 07-23-2022 End: 07-24-2022 [facility] Start: 07-03-2022 End: 07-03-2022 ambulatory [facility] Start: 06-24-2022 End: 06-25-2022 ambulatory [facility]-C [facility] Start: 06-17-2022 End: 06-18-2022 ambulatory INA JOHNSON Facility:[facility] Start: 06-10-2022 End: 06-10-2022 ambulatory [facility] Start: 05-08-2022 End: 05-09-2022 ambulatory CARL WILLIS Facility:[facility] Start: 05-05-2022 End: 05-06-2022 ambulatory Dasha Waggoner PA-C [facility] Start: 01-05-2022 End: 01-06-2022 ambulatory CARL WILLIS Facility:[facility] Start: 11-05-2021 End: 11-06-2021 ambulatory [employer] GAYLA MARTINEZ Facility:[facility] Start: 10-16-2021 End: 10-17-2021 ambulatory CARL WILLIS Facility:[facility] Start: 09-16-2021 End: 09-17-2021 ambulatory [employer] GAYLA MARTINEZ Facility:[facility] Start: 08-04-2021 End: 08-05-2021 ambulatory [employer] GAYLA MARTINEZ Facility:[facility] Payers Date Payer Category Payer Private Health Insurance 1960 Unknown [id number] 2.16.84 [id number] 1960 Unknown [id number] 2.16.84 0.1.514373.3.579.2.593 1960 Unknown [id number] 2.16.84 0.1.341365.3.579.2.593 1960 Unknown [id number] 2.16.84 0.1.252961.3.579.2.593 1960 Unknown [id number] 2.16.84 0.1.378559.3.579.2.593 1960 Unknown [id number] 2.16.84 0.1.067176.3.579.2.593 1960 Unknown [id number] 2.16.84 0.1.122216.3.579.2.593 1960 Unknown [id number] 2.16.840 .1.183249.3.579.2.1259 1960 Unknown [id number] 2.16. 840.1.980215.3.579.2.196 1960 Unknown [id number] 2.16. 840.1.045370.3.579.2.196 1960 Unknown [id number] 2.16. 840.1.308849.3.579.2.196 1960 Unknown [id number] 2.16. 840.1.440483.3.579.2. 1960 Unknown [id number] 2.16. 840.1.873679.3.579.2.196 1960 Unknown [id number] 2.16. 840.1.664150.3.579.2. 1960 Unknown [id number] 2.16. 840.1.036739.3.579.2. 1960 Unknown [id number] 2.16. 840.1.127829.3.579.2. 1960 Unknown [id number] 2.16. 840.1.009322.3.579.2.196 1960 Unknown [id number] 2.16. 840.1.409776.3.579.2.196 1960 Unknown [id number] 2.16. 840.1.912684.3.579.2.196 1960 Unknown [id number] 2.16. 840.1.089788.3.579.2. 1960 Unknown [id number] 2.16. 840.1.083266.3.579.2.196 1960 Unknown [id number] 2.16. 840.1.886291.3.579.2.196 1960 Unknown [id number] 2.16. 840.1.349283.3.579.2.196 1959 Unknown [id number] 1959 Unknown [id number] Clinical Notes 06-10-2022 to 01-19-2023 Note Date & Type Note Facility 01-19-2023 Note [facility] SUBJECTIVE Chief Complaint Patient presents with Follow-up Hypertension Stephan López is a 62 y.o. female here for follow-up. HPI PMHx: HTN, pericardial effusion, HLD She denies any cardiac concerns today. She has back problems. She is 5 months s/p surgery and she is still recovering. She is following with pain management at [facility]. She is not currently checking her BP at home. She denies c/o CP, dyspnea, orthopnea, PND, LE edema, dizziness/LH, palpitations, syncope. 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 Lumbar neuritis Lumbar spondylosis Spinal stenosis of lumbar region Pericardial effusion Benign essential HTN Past Medical History: Diagnosis Date Hyperlipidemia Hypertension Pericardial effusion Family History Problem Relation Name Age of Onset Other (pacemaker) Mother Heart attack Father Other (cabg) Father Other (cerbral embolism) Father Other (pacemaker) Maternal Grandmother Social History Tobacco Use Smoking status: Every Day Packs/day: 1.00 Types: Cigarettes Smokeless tobacco: Never Substance Use Topics Alcohol use: Not Currently Drug use: Never Allergies Allergen Reactions Lyrica [Pregabalin] Hallucinations ROS Constitutional: Positive for weight loss (down 21# since June 2022). Musculoskeletal: Positive for arthritis, back pain, joint pain and muscle weakness. All other systems reviewed and are negative. OBJECTIVE Visit Vitals BP (!) 137/92 (BP Location: Left arm, Patient Position: Sitting) Pulse 98 Ht 1.676 m (5' 6 ) Wt 60.8 kg (134 lb) SpO2 99% BMI 21.63 kg/m??? Smoking Status Every Day BSA 1.68 m??? Medications: Current Outpatient Medications: amitriptyline (Elavil) 25 mg tablet, , Disp: , Rfl: atorvastatin (Lipitor) 20 mg tablet, Take 20 mg by mouth at bedtime., Disp: , Rfl: metFORMIN (Glucophage) 500 mg tablet, Take 500 mg by mouth with breakfast., Disp: , Rfl: omeprazole (PriLOSEC) [address] capsule, Take 40 mg by mouth before breakfast. Do not crush or chew., Disp: , Rfl: Trelegy Ellipta 100-62.5-25 mcg blister with device, inhale 1 puff by mouth and INTO THE LUNGS once daily Rinse mouth after use, Disp: , Rfl: lisinopril 5 mg tablet, Take 1 tablet (5 mg) by mouth in the morning., Disp: 90 tablet, Rfl: 3 tiZANidine (Zanaflex) 4 mg tablet, Take 4 mg by mouth if needed each day., Disp: , Rfl: Physical Exam Vitals reviewed. Constitutional: Appearance: Normal appearance. She is normal weight. HENT: Head: Normocephalic and atraumatic. Right Ear: External ear normal. Left Ear: External ear normal. Eyes: Extraocular Movements: Extraocular movements intact. Conjunctiva/sclera: Conjunctivae normal. Pupils: Pupils are equal, round, and reactive to light. Neck: Vascular: No carotid bruit. Cardiovascular: Rate and Rhythm: Normal rate and regular rhythm. Pulses: Normal pulses. Heart sounds: Normal heart sounds. Pulmonary: Effort: Pulmonary effort is normal. Breath sounds: Normal breath sounds. Abdominal: General: Bowel sounds are normal. Palpations: Abdomen is soft. Musculoskeletal: Cervical back: Neck supple. Right lower leg: No edema. Left lower leg: No edema. Skin: General: Skin is warm and dry. Neurological: General: No focal deficit present. Mental Status: She is alert and oriented to person, place, and time. Psychiatric: Mood and Affect: Mood normal. Behavior: Behavior normal. Thought Content: Thought content normal. Judgment: Judgment normal. Labs: 06/17/22 renal function normal- BUN 9, CR 0.81, K+ 4.2 05/29/22 BUN 19, CR 0.94, K+ 3.9 Liver function normal Chol 125, trig 176, HDL 39, LDL 51 CBC stable 03/25/2021 CBC unremarkable Cr 0.94, BUN 17, K 3.7, eGFR >60, ALT 18, AST 13 Chol 230, HDL 35, trig 360, LDL 123 Testing/Procedures: ECHO 05/08/2022 Global LV systolic function is normal, LVEF=55-60% Normal diastolic function RV is normal in size and function No significant valvular abnormalities Anterior free space, trivial effusion vs fat pad ASSESSMENT/PLAN: Diagnosis Plan 1. Benign essential HTN lisinopril 5 mg tablet Basic metabolic panel 2. Pericardial effusion 3. Mixed hyperlipidemia PLAN: -Her BP is mildly elevated. Discussed BP goal of <130/90. -Will increase lisinopril to 5mg daily. Follow-up BMP in 2 weeks. -Her last ECHO from 04/2022 showed trivial effusion vs fat pad. -Reviewing her last labs from 05/2022, her cholesterol levels are fairly controlled. Continue atorvastatin 20mg daily. Follow up in about 6 months (around 07/20/2023). Or 1 year. Follow-up sooner if needed. Dante Hand NP [facility] 01-19-2023 Note Patient here for 6 m o follow up hypertension and pericardial effusion. Denies chest pain, SOB, and palpitations. She is down 21# since her last visit in June 2022. No recent labs or imaging. Review of Systems Constitutional: Positive for weight loss (down 21# since June 2022). Musculoskeletal: Positive for arthritis, back pain, joint pain and muscle weakness. All other systems reviewed and are negative. [facility] 08-24-2022 Note Admission Mat Hayes 62-year-old female with a history of hyperlipidemia and diabetes as well as hypertension and chronic cigarette smoking who presented to the neurosurgery clinic with intractable lumbar radiculopathy and neurogenic claudication was found to have severe spinal stenosis owing to facet arthropathy, lumbar spondylolisthesis, instability, as well as juxta articular facet cyst formation. Given her clinical performance and failure of conservative measures, she is now admitted for definitive management through her surgical intervention Hospital Course Patient was admitted 08/21/2022 and taken to the operating room for uncomplicated decompression and stabilization of L3-L5. Postoperatively, patient proved to be hemodynamically stable and had minimally borderline low hematocrit of 36. The patient was tolerant of diet and had effective mobilization with therapy modalities. She had good use of atelectasis control including deep nasal breathing exercises as well as incentive spirometer. Postoperative laboratories revealed normal renal function and routine Accu-Cheks revealed good control of diabetes. She proved tolerant of diet through her stay though she developed postoperative nausea, dizziness and headache as she mobilized. This was improved with conversion to tramadol therapy. She had decreasing amounts from her surgical drain etc. by postoperative day 3, the patient was able to have surgical drain removed. The patient also had effective bowel program and had significantly less dizziness though still enough that transdermal scopolamine patch was ordered. The patient also was pleased with elimination of preoperative radicular syndrome and had no paresthesias or numbness. By postoperative day 3, patient was cleared by therapy modalities for home-going Disposition: Home with Condition: Good Diet: ADA 2000 kcal/day Education: [facility]ily neurosurgery education form Follow-up: As scheduled preoperatively-call [phone] to confirm appointment to be seen in the neurosurgery clinic approximately 2 weeks after surgery Procedures while admitted: -Decompressive laminectomies of L3 and L4 as well as superior third of L5 with total foraminotomies bilateral L3-4 and L4-5; interbody arthrodesis L4-5 using TLIF technique with locally harvested autograft from laminectomy and rubberittronic elevate expandable cage 8-12 mm; posterolateral arthrodesis L3-L4 and L5 bilaterally with locally harvested autograft and small kit infuse from [employer] due to chronic nicotine abuse; transpedicular fixation L3, L4, L5 bilaterally with Poachable Osteogrip screws 6.5 mm in diameter; resection of juxta articular facet cyst left L4-5; computer-assisted hardware placement using [employer] station and Poachable O-arm Medications Home atorvastatin 20 mg oral tablet, 20 mg= 1 tabs, Oral, qAM lisinopril 2.5 mg oral tablet, 2.5 mg= 1 tabs, Oral, Daily metFORMIN 500 mg oral tablet, 500 mg= 1 tabs, Oral, BID omeprazole 40 mg oral delayed release capsule, 40 mg= 1 caps, Oral, Daily pregabalin 100 mg oral capsule, 100 mg= 1 caps, Oral, BID Prescriptions ascorbic acid 500 mg oral tablet, chewable, 500 mg= 1 tabs, Oral, q8hr docusate sodium 100 mg oral capsule, 100 mg= 1 caps, Oral, BID ferrous sulfate 325 mg (65 mg elemental iron) oral tablet, 325 mg= 1 tabs, Oral, BID Keflex 500 mg oral capsule, 500 mg= 1 caps, Oral, [id number] Times magnesium hydroxide 8% oral suspension, 1.2 g= 15 mL, Oral, TID Multiple Vitamins with Minerals oral tablet, 1 tabs, Oral, Daily scopolamine 1 mg/72 hr transdermal film, extended release, 1 patches, TD, q72hr traMADol 50 mg oral tablet, 100 mg= 2 tabs, Oral, q4hr, PRN Physical Exam Vitals & Measurements T: 36.9 ?C (Oral) HR: 101 (Monitored) RR: 18 BP: 96/60 SpO2: 93% HT: 168 cm HT: 168 cm WT: 73.8 kg BMI: 24.78 BMI: 24.78 Additional Vitals No qualifying data available. Discharge Plan 1. Lumbar stenosis with neurogenic claudication Ordered: Discharge Patient 2. Spondylolisthesis, lumbar region Ordered: traMADol, 2 tabs, Oral, q4hr, PRN, 1-2 tabs po q4hr prn pain, X 7 days, # 30 tabs, 0 Refill(s), 08/31/22 7:48:00 EDT, Pharmacy: [facility] #[id number] Discharge Patient 3. Lumbar radiculopathy Ordered: Discharge Patient 4. Nicotine dependence Ordered: Discharge Patient Orders: ascorbic acid, 1 tabs, Oral, q8hr, # 270 tabs, 0 Refill(s), Pharmacy: [facility] #[id number] cephalexin, 500 mg, Oral, Cap, [id number] Times for 12 doses, First Dose: 08/24/22 12:00:00 EDT, Stop Date: 08/27/22 11:59:00 EDT, Dispense From Location: [address], Prophylaxis- Pre/Post-Op, 08/24/22 7:40:00 EDT cephalexin, 1 caps, Oral, [id number] Times, X 3 days, # 12 caps, 0 Refill(s), 08/27/22 7:47:00 EDT, Pharmacy: [facility] #[id number] docusate, 1 caps, Oral, BID, # 14 caps, 0 Refill(s), Pharmacy: [facility] #[id number] ferrous sulfate, 1 tabs, Oral, BID, # 60 tabs, 0 Refill(s), Pharmacy: [facility] #[id number] magnesium hydroxide, 15 mL, Ora (more content not included)... [facility] 07-03-2022 Note No concerning symptoms [facility] 07[facility] Note Hypertension is well controlled 120/84 Reviewed b/p log and overall her b/p is controlled with some outliers of high and low b/p. Renal function was normal s/p starting lisinopril [facility] 07-03-2022 Note Patient here for 1 m o follow up pericardial effusion and hypertension. She was started on lisinopril at last apt in May. She was taking a full 5mg tablet for awhile because she didn't realize she was supposed to cut them in half. A few times her BP went too low with the full tablet. BP still up and down. She denies chest pain, SOB, and palpitations. Review of Systems Musculoskeletal: Positive for back pain. All other systems reviewed and are negative. [facility] 07-03-2022 Note [facility] CARDIOLOGY PROGR ESS NOTE HPI: Stephan López is a 62 y.o. female here for 1 month f/U pericardial effusion. Denied chest pain, shortness of breath, orthopnea, palpitations. Review of Systems Constitutional: Negative. Respiratory: Negative. Cardiovascular: Negative. Neurological: Negative. All other systems reviewed and are negative. Visit Vitals BP 120/84 (BP Location: Left arm, Patient Position: Sitting) Pulse 85 Ht 1.676 m (5' 6 ) Wt 70.3 kg (155 lb) SpO2 97% BMI 25.02 kg/m??? Smoking Status Every Day BSA 1.81 m??? No Known Allergies Medications: Current Outpatient Medications on File Prior to Visit Medication Sig Dispense Refill atorvastatin (Lipitor) 20 mg tablet Take 20 mg by mouth at bedtime. lisinopril 5 mg tablet Take 0.5 tablets (2.5 mg) by mouth in the morning. 45 tablet 3 meloxicam (Mobic) 15 mg tablet Take 15 mg by mouth in the morning. metFORMIN (Glucophage) 500 mg tablet Take 500 mg by mouth with breakfast and with evening meal. omeprazole (PriLOSEC) [address] capsule Take 40 mg by mouth before breakfast. Do not crush or chew. pregabalin (Lyrica) 100 mg capsule Take 100 mg by mouth in the morning and at bedtime. tiZANidine (Zanaflex) 4 mg tablet Take 4 mg by mouth if needed each day. Trelegy Ellipta 100-62.5-25 mcg blister with device inhale 1 puff by mouth and INTO THE LUNGS once daily Rinse mouth after use [DISCONTINUED] albuterol 90 mcg/actuation inhaler Inhale 2 puffs every 6 (six) hours if needed for wheezing. [DISCONTINUED] gabapentin (Neurontin) 400 mg capsule Take 400 mg by mouth in the morning, at noon, and at bedtime. No current facility-administered medications on file prior to visit. Physical Exam: Constitutional: Appearance: Normal appearance. Without apparent distress HENT: Head: Normocephalic and atraumatic. Nose: Nose normal. Mouth/Throat: Mouth: Mucous membranes are moist. Eyes: Extraocular Movements: Extraocular movements intact. Conjunctiva/sclera: Conjunctivae normal. Neck: Vascular: No JVD. Cardiovascular: Rate and Rhythm: Normal rate and regular rhythm. Pulses: Dorsalis pedis pulses are 3 on the right side and 3on the left side. Posterior tibial pulses are 3 on the right side and 3 on the left side. Heart sounds: Normal heart sounds, S1 normal and S2 normal. Pulmonary: Effort: Pulmonary effort is normal. Breath sounds: Normal breath sounds. Abdominal: General: Bowel sounds are normal. Palpations: Abdomen is soft. Musculoskeletal: General: Normal range of motion. Cervical back: Normal range of motion. Right lower leg: No edema. Left lower leg: No edema. Skin: General: Skin is warm and dry. Capillary Refill: Capillary refill takes less than 2 seconds. Neurological: General: No focal deficit present. Mental Status: alert and oriented to person, place, and time. Psychiatric: Mood and Affect: Mood normal. Behavior: Behavior normal. Thought Content: Thought content normal. Judgment: Judgment normal. Labs:/ 06/17/22 renal function normal- BUN 9, CR 0.81, K+ 4.2 05/29/22 BUN 19, CR 0.94, K+ 3.9 Liver function normal Chol 125, trig 176, HDL 39, LDL 51 CBC stable Last lab values have been reviewed [facility] Testin05/12/22 Echocardiogram Assessment/Plan: Benign essential HTN Hypertension is well controlled 120/84 Reviewed b/p log and overall her b/p is controlled with some outliers of high and low b/p. Renal function was normal s/p starting lisinopril Pericardial effusion No concerning symptoms RTC 6 months [facility] 06-10-2022 Note F/U with PCP [facility] 06-10-2022 Note Hypertension is 145/ 99 uncontrolled Will start lisinopril 2.5 mg daily BMP in 1 week Start monitoring b/p at home and record on a log, RTC 1 month D/W pt about side effects of 1st dose low b/p and dry persistent cough [facility] 06-10-2022 Note Recent echo with not ed trivial effusion. No recent illness or any concerning symptoms [facility] 06-10-2022 Note [facility] CARDIOLOGY PROGR ESS NOTE HPI: Stephan López is a 62 y.o. female here for routine f/U for pericardial effusion. At the time, patient denied any cardiac complaints. She denied any chest pain or shortness of breath. She denies any cardiac history. No history of ME, PCI, CHF. Repeat echocardiogram demonstrated a trivial pericardial effusion, and labs were unremarkable Patient here for 6 mo follow up pericardial effusion. Had echo in April 2022. Denies chest pain and SOB. States she is f/U with back surgeon for a possible surgery. Review of Systems Musculoskeletal: Positive for back pain. All other systems reviewed and are negative. Visit Vitals BP (!) 145/99 (BP Location: Right arm, Patient Position: Sitting) Pulse 96 Ht 1.676 m (5' 6 ) Wt 72.6 kg (160 lb) SpO2 96% BMI 25.82 kg/m??? Smoking Status Every Day BSA 1.84 m??? No Known Allergies Medications: Current Outpatient Medications on File Prior to Visit Medication Sig Dispense Refill atorvastatin (Lipitor) 20 mg tablet Take 20 mg by mouth in the morning. meloxicam (Mobic) 15 mg tablet Take 15 mg by mouth in the morning. metFORMIN (Glucophage) 500 mg tablet Take 500 mg by mouth with breakfast and with evening meal. omeprazole (PriLOSEC) [address] capsule Take 40 mg by mouth before breakfast. Do not crush or chew. pregabalin (Lyrica) 100 mg capsule Take 100 mg by mouth in the morning and at bedtime. tiZANidine (Zanaflex) 4 mg tablet Take 4 mg by mouth if needed each day. Trelegy Ellipta 100-62.5-25 mcg blister with device inhale 1 puff by mouth and INTO THE LUNGS once daily Rinse mouth after use albuterol 90 mcg/actuation inhaler Inhale 2 puffs every 6 (six) hours if needed for wheezing. gabapentin (Neurontin) 400 mg capsule Take 400 mg by mouth in the morning, at noon, and at bedtime. No current facility-administered medications on file prior to visit. Physical Exam: Constitutional: Appearance: Normal appearance. Without apparent distress, chronically ill HENT: Head: Normocephalic and atraumatic. Nose: Nose normal. Mouth/Throat: Mouth: Mucous membranes are moist. Eyes: Extraocular Movements: Extraocular movements intact. Conjunctiva/sclera: Conjunctivae normal. Neck: Vascular: No JVD. Cardiovascular: Rate and Rhythm: Normal rate and regular rhythm. Pulses: Dorsalis pedis pulses are 3 on the right side and 3on the left side. Posterior tibial pulses are 3 on the right side and 3 on the left side. Heart sounds: Normal heart sounds, S1 normal and S2 normal. Pulmonary: Effort: Pulmonary effort is normal. Breath sounds: Normal breath sounds. Abdominal: General: Bowel sounds are normal. Palpations: Abdomen is soft. Musculoskeletal: General: Normal range of motion. Ambulatory with cane Right lower leg: No edema. Left lower leg: No edema. Skin: General: Skin is warm and dry. Capillary Refill: Capillary refill takes less than 2 seconds. Neurological: General: No focal deficit present. Mental Status: She is alert and oriented to person, place, and time. Psychiatric: Mood and Affect: Mood normal. Behavior: Behavior normal. Thought Content: Thought content normal. Judgment: Judgment normal. Labs: 05/29/22 BUN 19, CR 0.94, K+ 3.9 Liver function normal Chol 125, trig 176, HDL 39, LDL 51 CBC stable Last lab values have been reviewed CV Testin05/12/22 Echocardiogram No echocardiogram results found for the past 12 months Assessment/Plan: Pericardial effusion Recent echo with noted trivial effusion. No recent illness or any concerning symptoms Benign essential HTN Hypertension is 145/99 uncontrolled Will start lisinopril 2.5 mg daily BMP in 1 week Start monitoring b/p at home and record on a log, RTC 1 month D/W pt about side effects of 1st dose low b/p and dry persistent cough Diabetes 1.5, managed as type 2 (CMS/HCC) F/U with PCP RTC 1 month for re-evaluation [facility] 06-10-2022 Note Patient here for 6 m o follow up pericardial effusion. Had echo in April 2022. Denies chest pain and SOB. Review of Systems Musculoskeletal: Positive for back pain. All other systems reviewed and are negative. [facility] Summary Purpose Family History No Family History Records FoundNo Family History Records FoundNo Family History Records FoundNo Family History Records Found Advance Directives No Advanced Directives Records FoundNo Advanced Directives Records FoundNo Advanced Directives Records FoundNo Advanced Directives Records Found Additional Source Comments INFORMATION SOURCE (unrecogn ized section and content) DATE CREATED AUTHOR 06/21/2022 [facility] DATE CREATED AUTHOR AUTHOR'S ORGANIZ ATION 01/20/2023 [facility] DATE CREATED AUTHOR AUTHOR'S ORGANIZ ATION 01/26/2023 [facility] DATE CREATED AUTHOR AUTHOR'S ORGANIZ ATION 02/09/2023 [facility] FOR RECORDS PERTAINING TO PATIENTS WHO ARE OR HAVE BEEN ENROLLED IN A CHEMICAL DEPENDENCY/SUBSTANCEABUSE PROGRAM, SOME INFORMATION MAY BE OMITTED. This clinical summary was aggregated from multiple sources. Caution should be exercised in using it in the provision of clinical care. This summary normalizes information from multiple sources, and as a consequence, information in this document may materially change the coding, format and clinical context of patient data. In addition, data may be omitted in some cases. CLINICAL DECISIONS SHOULD BE BASED ON THE PRIMARY CLINICAL RECORDS. [employer] provides no warranty or guarantee of the accuracy or completeness of information in this document.
[2023-03-03 16:22] LABS: Anion Gap 11.7; BUN Creatinine Ratio 17.4; Calcium 8.7 mg/dL (8.5-10.1); Carbon Dioxide 28.4 mmol/L (21.0-32.0); Chloride 100 mmol/L (98-107); Estimated GFR (African America >60 (>=60); Estimated GFR (Non-African Ame >60 (>=60); Glucose 120 mg/dL (74-106); Potassium 4.1 mmol/L (3.5-5.1); Sodium 136 mmol/L (136-145)
== END 2023-03-03 15:53 | disposition home or self-care (01) ==
LOC: LAB 15:55
PROVIDERS: PCP Nurse Practitioner; Visit Provider Nurse Practitioner Family
DX: I10 Essential (primary) hypertension (principal)
CPT/HCPCS: 36415; 80048

== ENCOUNTER 2023-04-08 10:49 | Outpatient (REF) | payer OTHER, SELFPAY ==
--- OUTSIDE RECORDS SUMMARY | 2023-04-08 11:02 | XMS_ITS | CCD ---
Author Name Unknown Address [address] [place] [address] Organization [facility] Care Team Providers Care Wheel Press Operator Name Role Phone ALGHOTHANI, MOHAMAD Attending Unavailable AICHHOLZ, CNC MAINTENANCE TECHNICIAN GAYLA Primary Care Unavailable ALGHOTHANI, MOHAMAD Consulting Unavailable ALGHOTHANI, MOHAMAD Admitting Unavailable AICHHOLZ, CNC MAINTENANCE TECHNICIAN GAYLA Primary Care Unavailable AICHHOLZ, CNC MAINTENANCE TECHNICIAN GAYLA Admitting Unavailable AICHHOLZ, CNC MAINTENANCE TECHNICIAN GAYLA Attending Unavailable AICHHOLZ, CNC MAINTENANCE TECHNICIAN GAYLA Consulting Unavailable ALGHOTHANI, MOHAMAD Attending Unavailable AICHHOLZ, CNC MAINTENANCE TECHNICIAN GAYLA Primary Care Unavailable ALGHOTHANI, MOHAMAD Consulting Unavailable ALGHOTHANI, MOHAMAD Admitting Unavailable ALGHOTHANI, MOHAMAD Attending Unavailable AICHHOLZ, CNC MAINTENANCE TECHNICIAN GAYLA Primary Care Unavailable ALGHOTHANI, MOHAMAD Consulting Unavailable ALGHOTHANI, MOHAMAD Admitting Unavailable ALEX, INA Attending Unavailable ALEX, INA Admitting Unavailable ALEX, INA Consulting Unavailable AICHHOLZ, CNC MAINTENANCE TECHNICIAN GAYLA Primary Care Unavailable AICHHOLZ, CNC MAINTENANCE TECHNICIAN GAYLA Admitting Unavailable AICHHOLZ, CNC MAINTENANCE TECHNICIAN GAYLA Attending Unavailable AICHHOLZ, CNC MAINTENANCE TECHNICIAN GAYLA Consulting Unavailable AICHHOLZ, CNC MAINTENANCE TECHNICIAN GAYLA Primary Care Unavailable AICHHOLZ, CNC MAINTENANCE TECHNICIAN GAYLA Admitting Unavailable AICHHOLZ, CNC MAINTENANCE TECHNICIAN GAYLA Attending Unavailable AICHHOLZ, CNC MAINTENANCE TECHNICIAN GAYLA Consulting Unavailable AICHHOLZ, CNC MAINTENANCE TECHNICIAN GAYLA Primary Care Unavailable AICHHOLZ, GAYLA Attending Unavailable ALEX, INA Attending Unavailable ALEX, INA Attending Unavailable DANTE HAND Attending Unavailable Tylor KAMARA MD, Delfino Freeman Attending U kasey Snider III, MD, Delfino Freeman Attending U kasey Mar MD, Lara Amos Attending Unavailable Edilson PA-C, Dasha Pedro Attending Unavailab le Edilson PA-C, Dasha Pedro Attending Unavailab le Edilson PA-C, Dasha Pedro Attending Unavailab le Edilson PA-C, Dasha Pedro Attending Unavailab le Edilson PA-C, Dasha Pedro Attending Unavailab le Unavailable, Physician Primary Care Unavailab Lenora KAMARA MD, Delfino Freeman Consulting U kasey Snider III, MD, Delfino Freeman Attending U kasey Snider III, MD, Delfino Freeman Admitting U navailable Edilson PA-C, Dasha Pedro Attending Unavailab le Edilson PA-C, Dasha Pedro Attending Unavailab le Edilson PA-C, Dasha Pedro Attending Unavailab le Edilson PA-C, Dasha Pedro Attending Unavailab le Edilson PA-C, Dasha Pedro Attending Unavailab rose Snider III, MD, Delfino Freeman Attending U kasey Martinez DINING ROOM HOST/HOSTESS, Gayla Unavailable Pancho BOWIE, Jim Primary Care Provider Allergies Allergy Classification Reported Allergen(s) Allergy Type Date of Onset Reaction(s) Facility (2 sources) pregabalin; Translations: [PREGABALIN] Drug Allergy 3 Hallucinations [facility] Repository (1 source) No Known Medication Allergies; Translations: [No Known Medication Allergies] Propensity to adverse reactions to drug (disorder) [facility] Repository Medications Current Medications Medication Drug Class(es) Dates Sig (Normalized) Sig (Original) amitriptyline hydrochloride 25 mg oral tablet (1 source) Tricyclic Antidepressant Start: 02-08-2023 amitriptyline (Elavil) 25 MG tablet Indications: Other chronic pain , Other insomnia At bedtime 30 tablet 2 02/08/2023 Active ascorbic acid 1000 mg oral tablet (1 source) Vitamin C take 1 tablet by mouth in the morning Ascorbic Acid (vitamin C) 1000 MG tablet Take 1 tablet by mouth in the morning. 0 Active atorvastatin 20 mg oral tablet (1 source) HMG-CoA Reductase Inhibitor Start: 03-23-2023 End: 06-21-2023 take 1 tablet by mouth in the morning atorvastatin (Lipitor) 20 MG tablet Indications: Mixed hyperlipidemia (CMS/HCC) Take 1 tablet (20 mg) by mouth in the morning. 90 tablet 1 03/23/2023 06/21/2023 Active azithromycin 250 mg oral tablet (1 source) Macrolide Antimicrobial Start: 04-07-2023 azithromycin (Zithromax) 250 MG tablet Indications: COPD with exacerbation (CMS/HCC) 2 pills day #1, 1 pill day #2-#5 6 tablet 0 04/07/2023 Active Blood Glucose Monitoring Suppl (Pip Blood Glucose Monitoring) device (1 source) Blood Glucose Monitoring Suppl (Pip Blood Glucose Monitoring) device 1 Device Daily as needed. 0 Active brompheniramine maleate 0.4 mg/ml / dextromethorphan hydrobromide 2 mg/ml / pseudoephedrine hydrochloride 6 mg/ml oral solution (1 source) alpha-Adrenergic Agonist, Uncompetitive P-xchibe-E-aspartat e Receptor Antagonist, Sigma-1 Agonist Start: 04-07-2023 End: 04-14-2023 take 10 mL by mouth four times daily as needed for cough brompheniramine-ps eudoephedrine-DM (Bromfed DM) 30-2-10 MG/5ML syrup Indications: COPD with exacerbation (CMS/HCC) Take 10 mL by mouth 4 (four) times a day as needed for cough or congestion for up to 7 days 280 mL 0 04/07/2023 04/14/2023 Active ferrous sulfate 325 mg delayed release oral tablet (1 source) take 1 tablet by mouth in the morning ferrous sulfate 325 (65 Fe) MG EC tablet Take 1 tablet by mouth in the morning and 1 tablet before bedtime. Do not crush, chew, or split. . 0 Active 30 actuat fluticasone furoate 0.1 mg/actuat / umeclidinium 0.0625 mg/actuat / vilanterol 0.025 mg/actuat dry powder inhaler (1 source) Anticholinergic, Corticosteroid, beta2-Adrenergic Agonist take 1 dose by inhalation once daily Fluticasone-Umecli din-Vilant (Trelegy Ellipta) 100-62.5-25 MCG/ACT aerosol powder Inhale 1 Dose 1 (one) time each day. 0 Active lisinopril 5 mg oral tablet (1 source) Angiotensin Converting Enzyme Inhibitor Start: 01-19-2023 End: 01-19-2024 take 1 tablet by mouth in the morning lisinopril 5 MG tablet Take 5 mg by mouth in the morning. 0 01/19/2023 01/19/2024 Active meloxicam 15 mg oral tablet (1 source) Nonsteroidal Anti-inflammatory Drug Start: 03-23-2023 End: 06-21-2023 take 1 tablet by mouth in the morning meloxicam (Mobic) 15 MG tablet Indications: Other chronic pain Take 1 tablet (15 mg) by mouth in the morning. 90 tablet 1 03/23/2023 06/21/2023 Active metFORMIN hydrochloride 500 mg oral tablet (1 source) Biguanide Start: 01-25-2023 End: 04-25-2023 take 1 tablet by mouth at mealtime metFORMIN (Glucophage) 500 MG tablet Indications: Controlled type 2 diabetes mellitus without complication, without long-term current use of insulin (CMS/HCC) Take 1 tablet (500 mg) by mouth in the morning. Take with meals. 90 tablet 1 01/25/2023 04/25/2023 Active Multiple Vitamins-Minerals (CENTRUM ADULT PO) (1 source) take 1 tablet by mouth once daily Multiple Vitamins-Minerals (CENTRUM ADULT PO) Take 1 tablet by mouth 1 (one) time each day. 0 Active omeprazole 40 mg delayed release oral capsule (1 source) Proton Pump Inhibitor Start: 03-16-2023 End: 04-15-2023 take 1 capsule by mouth in the morning omeprazole (PriLOSEC) [address] capsule Indications: Munoz's esophagus with esophagitis Take 1 capsule (40 mg) by mouth in the morning. 30 capsule 2 03/16/2023 04/15/2023 Active tiZANidine 4 mg oral tablet (1 source) Central alpha-2 Adrenergic Agonist take 1 tablet by mouth once tiZANidine (Zanaflex) 4 MG tablet Take 1 tablet by mouth every 12 (twelve) hours if needed for muscle spasms. 0 Active Problems Active Problems Problem Classification Problem Date Documented Date Episodic/Chronic Chronic obstructive pulmonary disease and bronchiectasis (3 sources) Acute exacerbation of chronic obstructive airways disease; Translations: [Chronic obstructive pulmonary disease with (acute) exacerbation] Onset: 01-25-2023 04-07-2023 Chronic Diabetes mellitus without complication (7 sources) Type 2 diabetes mellitus without complications; Translations: [Other specified diabetes mellitus without complications] Onset: 09-11-2011 Chronic Disorders of lipid metabolism (1 source) Hyperlipidemia; Translations: [Hyperlipidemia, unspecified] Onset: 03-16-2023 03-16-2023 Chronic Esophageal disorders (1 source) Munoz's esophagus with esophagitis; Translations: [Munoz's esophagus without dysplasia] Onset: 03-16-2023 03-16-2023 Chronic Essential hypertension (6 sources) Essential (primary) hypertension; Translations: [ESSENTIAL PRIMARY HYPERTENSION] Onset: 06-10-2022 Chronic Other nervous system disorders (1 source) Chronic pain; Translations: [Other chronic pain] Onset: 02-08-2023 02-08-2023 Chronic Pleurisy; pneumothorax; pulmonary collapse (4 sources) Pleural effusion, not elsewhere classified; Translations: [PLEURAL EFFUSION NEC] Onset: 05-08-2022 Episodic Residual codes; unclassified (1 source) Insomnia; Translations: [Other insomnia] Onset: 02-08-2023 02-08-2023 Chronic Spondylosis; intervertebral disc disorders; other back problems (1 source) Degeneration of lumbar intervertebral disc; Translations: [Other intervertebral disc degeneration, lumbar region] Onset: 01-25-2023 01-25-2023 Chronic Substance-related disorders (1 source) Tobacco dependence syndrome; Translations: [Nicotine dependence, unspecified, uncomplicated] Onset: 01-22-2023 01-22-2023 Chronic Unclassified (3 sources) OTH PERICARDIAL EFFUSION NONINFLAMM; [...] (noninflammatory); Translations: [Other pericardial effusion (noninflammatory)] Onset: 07-03-2022 Results Test Name Value Interpretation Reference Range Facility 36on 03-19-2023 36 Please let her know her labs showed normal kidney function. Can continue lisinopril. Thank you Normal [facility] Telephoneon 03-19-2023 Telephone [id number] James López 1960 F Date Provider Department Center 03/19/2023 DANTE BAIG Family History Problem Relation Age of Onset Other Mother Heart attack Father Other Father Other Father Other Maternal Grandmother Family Status - Relation Status Age at Mother Father Maternal Grandmother Normal [facility] Neurosurgery Office/Clinic N oteon 02-08-2023 Neurosurgery Office/Clinic Note Chief Complaint Back [...] and tizanidine as provided by pain management ([facility] pain management) only as needed and has not yet returned to NSAID medication. She continues to utilize nicotine and understands the deleterious effects of nicotine on her overall health and bony arthrodesis. Recent imaging (provider interpretation): CT lumbar spine 02/03/2023 at [facility] reveals evidence of L3-5 posterior spinal fusion [...] prior imaging. CT lumbar spine 10/14/2022 at [facility] reveals evidence of L3-5 decompression and posterior [...] bladder inc (more content not included)... Normal [facility] Office Visiton 01-19-2023 Follow-up visit [id number] James López 1960 F Date Provider Department Center 01/19/2023 DANTE BAIG [facility] Family History Problem Relation Age of Onset Other Mother Heart attack Father Other Father Other Father Other Maternal Grandmother Family Status - Relation Status Age at Mother Father Maternal Grandmother Level of Service:97027 [place] OFFICE/OUTPATIENT ESTABLISHED LOW MDM 20-29 MIN Reason for Visit and Comments: Follow-up [349843] Hypertension [464918] Normal [facility] Neurosurgery Office/Clinic N oteon 12-22-2022 Neurosurgery Office/Clinic [...] 2 times per week. She follows with [facility] pain management which is a transition from [facility] pain management group. She continues to [...] prior imaging. CT lumbar spine 10/14/2022 at [facility] reveals evidence of L3-5 decompression and posterior [...] demonstrates normal respiratory effort She presents in [facility] lock brace with proper fit and alignment. This was removed at the time of today's visit for incision evaluation. Lumbosacral incision appears well-healed and without erythema, edema, drainage or warmth. She notes mild tenderness (more content not included)... Normal [facility] Neurosurgery Office/Clinic N stephieon 11-26-2022 Neurosurgery Office/Clinic Note Chief Complaint Back [...] she recently transferred pain management care from [facility] to [facility]. Per the patient, they eventually would like her to initiate hot water physical therapy though only after receiving clearance from this office. Recent imaging (provider interpretation): CT lumbar spine 10/14/2022 at [facility] reveals evidence of L3-5 decompression and posterior [...] demonstrates normal respiratory effort She presents in [facility] brace with proper fit and alignment. This [...] lower extre (more content not included)... Normal [facility] Neurosurgery Office/Clinic N oteon 10-15-2022 Neurosurgery Office/Clinic Note Chief Complaint post [...] (provider interpretation): CT lumbar spine 10/14/2022 at [facility] reveals evidence of L3-5 decompression and posterior [...] Lumbar w/o (more content not included)... Normal [facility] Provider Letteron 10-15-2022 Provider Letter [facility] [address] [place], [place], [phone] Date: 10/15/2022 17:05:57 To Whom It May Concern: This is to verify that Rene Stephan Ceballos was under our care on 10/15/2022 16:00:00. Stated patient underwent an L3-5 posterior spinal fusion on 08/21/22 with instrumentation utilizing Medtronic osteogrip titanium screws. If you have any questions or concerns please call our office at [phone]. Thank you, Dasha Waggoner PA-C Normal [facility] Neurosurgery Office/Clinic N oteon 09-16-2022 Neurosurgery Office/Clinic Note Chief Complaint Patient [...] postoperative Lovenox dosing as recommended by her veterinary nurse for strong family history of blood clots. [...] and manner are appropriate. She presents in O cinch lock brace which was removed at [...] No redness (more content not included)... Normal [facility] Inpatient Clinical Summaryon 08-24-2022 Inpatient Clinical Summary [address] [address] Clinical Summary Person Information Name: Stephan López Age: 62 Years : 1960 Sex: Female PCP: Marital Status: Phone: PCP: Race: White Ethnicity: Not or Language: Danish Visit Id: Visit Reason: Speciality: Acuity: Enc Type: Inpatient Med Service: Surgery Arrival: 08/21/2022 06:28:12 Discharge: Dispo Type: Address: [address] [place] [id number] Diagnosis: 1:Lumbar stenosis with neurogenic claudication; 2:Spondylolisthesis, [...] range between ( 27.2 and 40.8 ) [place] Auto: 8.9 % -- Normal range between [...] range between ( 36.0 and 46.0 ) [place] Absolute: 1.8 x10 MCH: 31.8 pg -- [...] [facility] New Medications [id number], [address], [place] [id number], [phone] ascorbic acid (ascorbic acid 500 mg oral [...] magnesium hydroxi (more content not included)... Normal [facility] Neurosurgery Progress Noteon 08-24-2022 Neurosurgery Progress Note [...] report for details. Possible hepatomegaly. Signed By: Bernice Hall MD Medications Inpatient ascorbic acid, 500 mg, Oral, [...] Date: 08/27/22 7:59:00 EDT, Dispense From Location: [address], Prophylaxis- Pre/Post-Op, 08/24/22 7:40:00 EDT scopolamine, 1 patches, TD, Film-ER, q72hr, First Dose: 08/24/22 7:40:00 EDT, Dispense From Location: [facility], 08/24/22 7:40:00 EDT traMADol, 100 mg, Oral, Tab, q4hr, PRN severe pain [7-10 on pain scale], First Dose: 08/23/22 9:04:00 EDT, Dispense From Location: [address], 08/23/22 9:04:00 EDT traMADol, 50 mg, Oral, Tab, q4hr, PRN moderate pain [4-6 on pain scale], First Dose: 08/23/22 9:04:00 EDT, Dispense From Location: [address], 08/23/22 9:04:00 EDT Surgical Drains Subjective: [...] MD, Delfino Freeman 08/24/22 07:45 EDT Normal [facility] Neurosurgery Progress Noteon 08-23-2022 Neurosurgery Progress Note [...] Dose: 08/23/22 9:04:00 EDT, Dispense From Location: [id number], 08/23/22 9:04:00 EDT traMADol, 50 mg, Oral, Tab, q4hr, PRN moderate pain [4-6 on pain scale], First Dose: 08/23/22 9:04:00 EDT, Dispense From Location: [id number], 08/23/22 9:04:00 EDT Surgical Drains Subjective: Patient [...] Snider III, MD 08/23/22 09:14 EDT Normal [facility] POC Glucose Randomon 023 Glucose [Mass/Vol] 114 mg/dL High 70-99 [facility] Comment on above: Performed By: #### C [id number] ####[facility] [place] [address] Glucose [Mass/Vol] 114 mg/dL High 70-99 [facility] Comment on above: Performed By: #### C D:[id number] #### [facility] [address] [place] [address] .eGFRon 08-22-2022 GFR/1.73 sq M.predicted MDRD (S/P/Bld) [Vol rate/Area] mL/min/{1.73_m2} Normal >=60 [facility] Comment on above: Result Comment: [facility] have implemented the eGFR calculation [...] = years Performed By: #### E GFR ####[address] [address] Basic Metabolic Profileon Anion gap [Moles/Vol] 12 mmol/L Normal 7-17 [facility] Comment on above: Performed By: #### C [id number] #### [address] [address] Calcium [Mass/Vol] 8.5 mg/dL Normal 8.5-10.3 [facility] Comment on above: Performed By: #### C [id number] #### [address] [address] Chloride [Moles/Vol] 101 mmol/L Normal 98-110 [facility] Comment on above: Performed By: #### C D:[id number] #### [address] [address] CO2 [Moles/Vol] 25 mmol/L Normal 22-32 [facility] Comment on above: Performed By: #### C D:[id number] #### [address] [address] Creatinine [Mass/Vol] 0.76 mg/dL Normal 0.44-1.03 [facility] Comment on above: Performed By: #### C D:[id number] #### [address] [address] Glucose [Mass/Vol] 116 mg/dL High 70-99 [facility] Comment on above: Performed By: #### C D:[id number] #### [address] [address] Potassium [Moles/Vol] 4.2 mmol/L Normal 3.4-4.8 [facility] Comment on above: Performed By: #### C D:[id number] #### [address] [address] Sodium [Moles/Vol] 134 mmol/L Normal 133-142 [facility] Comment on above: Performed By: #### C D:[id number] #### [address] [address] Urea nitrogen [Mass/Vol] 10 mg/dL Normal 8-26 [facility] Comment on above: Performed By: #### C D:[id number] #### [address] [address] Urea nitrogen/Creatinine [Mass ratio] 13.2 mg/mg Normal 10.0-20.0 [facility] Comment on above: Performed By: #### C D:[id number] #### [address] [address] CBC w/ Diffon 08-22-2022 Erythrocyte distribution width (RBC) [Ratio] 13.5 % Normal 11.6-14.8 [facility] Comment on above: Performed By: #### C BC ####[address] [address] Hematocrit (Bld) [Volume fraction] 36.3 % Normal 36.0-46.0 [facility] Comment on above: Performed By: #### C BC ####[address] [address] Hemoglobin (Bld) [Mass/Vol] 12.2 g/dL Normal 12.0-16.0 [facility] Comment on above: Performed By: #### C BC ####[address] [address] MCH (RBC) [Entitic mass] 31.8 pg Normal 27.0-35.0 [facility] Comment on above: Performed By: #### C BC ####[address] [address] MCHC 33.5 % Normal 31.0-37.0 [facility] Comment on above: Performed By: #### C BC ####[address] [address] MCV (RBC) [Entitic vol] 94.9 fL Normal 80.0-100.0 [facility] Comment on above: Performed By: #### C BC ####[address] [address] Platelet 282 x10*3/mcL Normal 150-450 [facility] Comment on above: Performed By: #### C BC ####[address] [address] Platelet mean volume (Bld) [Entitic vol] 9.0 fL Normal 6.7-10.6 [facility] Comment on above: Performed By: #### C BC ####[address] [address] RBC 3.82 x10*6/mcL Normal 3.80-5.20 [facility] Comment on above: Performed By: #### C BC ####[address] [address] WBC 20.4 x10*3/mcL High 4.5-11.0 [facility] Comment on above: Performed By: #### C BC ####[address] [address] Diff Autoon 08-22-2022 Baso Absolute 0.1 x10*3/mcL Normal 0.0-0.[address] [facility] Comment on above: Performed By: #### C D:[id number] #### [address] [address] Basophils/100 WBC (Bld) 0.4 % Normal 0.0-1.5 [facility] Comment on above: Performed By: #### C D:[id number] #### [address] [place] [address] Eos Absolute 0.0 x10*3/mcL Normal 0.0-0.4 [facility] Comment on above: Performed By: #### C D:[id number] #### [address] [address] Eosinophils/100 WBC (Bld) 0.1 % Normal 0.0-5.4 [facility] Comment on above: Performed By: #### C D:[id number] #### [address] [address] Lymph Absolute 2.4 x10*3/mcL Normal 1.0-4.8 [facility] Comment on above: Performed By: #### C D:[id number] #### [address] [address] Lymphocytes/100 WBC (Bld) 11.6 % Low 27.2-40.8 [facility] Comment on above: Performed By: #### C D:[id number] #### [address] [address] [place] Absolute 1.8 x10*3/mcL High 0.1-1.[address] [facility] Comment on above: Performed By: #### C D:[id number] #### [address] [address] Monocytes/100 WBC (Bld) 8.9 % Normal 3.7-11.9 [facility] Comment on above: Performed By: #### C D:[id number] #### [address] [address] Neutro Absolute 16.1 x10*3/mcL High 1.8-7.7 [facility] Comment on above: Performed By: #### C D:[id number] #### [address] [address] Neutro Auto 79.0 % High 47.2-70.8 [facility] Comment on above: Performed By: #### C D:[id number] #### [facility] [address] [place] [address] Neurosurgery Progress Noteon 08-22-2022 Neurosurgery Progress Note [...] mg, Oral, qAM baclofen, 5 mg, Oral, q0af-Tuqjfbyb Times bisacodyl, 10 mg= 1 supp, Rectal, [...] Dose: 08/21/22 17:00:00 EDT, Dispense From Location: [address], 08/21/22 16:37:00 EDT baclofen, 5 mg, Oral, Tab, a9ml-Gcujlobo Times, First Dose: 08/21/22 22:00:00 EDT, Dispense From Location: [address], 08/21/22 16:37:00 EDT bisacodyl, 10 mg, Rectal, Supp, Once, First Dose: 08/22/22 6:59:00 EDT, Stop Date: 08/22/22 6:59:00 EDT, Dispense From Location: [address], 08/22/22 6:59:00 EDT bisacodyl, 10 mg, Rectal, Supp, Daily, PRN constipation, First Dose: 08/22/22 9:00:00 EDT, Dispense From Location: [address], 08/22/22 9:00:00 EDT ceFAZolin, 2 g, IV Piggyback, Soln-IV, q8hr, infuse over 30 minutes, First Dose: 08/21/22 20:00:00 EDT, Dispense From Location: [id number], Prophylaxis- Pre/Post-Op, 08/21/22 20:00:00 EDT docusate, 100 mg, Oral, Cap, BID, First Dose: 08/21/22 21:00:00 EDT, Dispense From Location: [address], 08/21/22 16:37:00 EDT ferrous sulfate, 325 mg, Oral, Tab, BID, First Dose: 08/21/22 21:00:00 EDT, Dispense From Location: [address], 08/21/22 16:37:00 EDT hydrALAZINE, 10 mg, IV Push, Injection, q10min, PRN hypertension, First Dose: 08/21/22 16:37:00 EDT, Dispense From Location: [address], 08/21/22 16:37:00 EDT labetalol, 10 mg, IV Push, Injection, q10min, PRN hypertension, First Dose: 08/21/22 16:37:00 EDT, Dispense From Location: [address], 08/21/22 16:37:00 EDT magnesium hydroxide, 30 mL, Oral, Susp, TID, First Dose: 08/21/22 22:00:00 EDT, Dispense From Location: [address], 08/21/22 16:37:00 EDT multivitamin with minerals, 1 tabs, Oral, Tab, Daily, First Dose: 08/22/22 9:00:00 EDT, Dispense From Location: [address], 08/21/22 16:37:00 EDT ondansetron, 4 mg, IV Push, Injection, q6hr, PRN nausea/vomiting, First Dose: 08/21/22 15:08:00 EDT, Dispense From Location: [facility], 08/21/22 15:08:00 EDT oxyCODONE-acetaminophe n, 1 tabs, Oral, Tab, q4hr, PRN moderate pain [4-6 on pain scale], First Dose: 08/21/22 16:37:00 EDT, Dispense From Location: [address], 08/21/22 16:37:00 EDT oxyCODONE-acetaminophe n, 2 tabs, Oral, Tab, q4hr, PRN severe pain [7-10 on pain scale], First Dose: 08/21/22 16:37:00 EDT, Dispense From Location: [address], 08/21/22 16:37:00 EDT sodium chloride, 10 mL, IV Push, Injection, As Indicated, PRN flush, First Dose: 08/21/22 16:37:00 EDT, Dispense From Location: [id number], 08/21/22 16:37:00 EDT ADA Diet Ambulate Basic Metabolic Profile Blood Glucose Monitoring POC Cinch Loc Brace (EXOS Brace) Consult to Filer Metal Patterns Incentive Spirometry Nursing to Encourage Intake and Output Mechanical Compression Device Neurological Checks Notify Provider Occupational Therapy Evaluation and Treatment Inpatient Oxygen Therapy Peripheral IV Insert and Maintain Physical Therapy Evaluation and Treatment Inpatient Pulse Oximetry Continuous Pulse Oximetry Continuous Resuscitation Status Straight Catheter Straight (more content not included)... Normal [facility] POC Glucose Randomon 023 Glucose [Mass/Vol] 124 mg/dL High 70-99 [facility] Comment on above: Performed By: #### C D:[id number] #### [facility] [address] [place] [address] Glucose [Mass/Vol] 120 mg/dL High 70-99 [facility] Comment on above: Performed By: #### C D:[id number] ####[facility] [place] [address] Neurosurgery Progress Noteon 08-21-2022 Neurosurgery Progress Note [...] ceFAZolin, 2 g= 50 mL, IV Piggyback, Online User Experience Strategist Dilaudid, 0.5 mg= 0.5 mL, IV Push, q15min, PRN diphenhydrAMINE, 25 mg= 0.5 mL, IV Push, q6hr, PRN fentaNYL, 50 mcg= 1 mL, IV Push, q5min, PRN fentaNYL TRUCK DRIVER, 300 mcg= 30 mL, IV TRUCK DRIVER, [id number] Times, PRN lisinopril, 2.5 mg, Oral, Daily [...] Dose: 08/21/22 9:00:00 EDT, Dispense From Location: [facility], 08/21/22 6:35:00 EDT ceFAZolin, 2 g, IV Piggyback, Soln-IV, Online User Experience Strategist, infuse over 30 minutes, First Dose: 08/21/22 0:15:00 EDT, Dispense From Location: [id number], Prophylaxis- Pre/Post-Op, 08/21/22 0:15:00 EDT diphenhydrAMINE, 25 mg, IV Push, Injection, q6hr, PRN itching, First Dose: 08/21/22 15:08:00 EDT, Dispense From Location: [id number], 08/21/22 15:08:00 EDT fentaNYL, 300 30 mcg mL, IV TRUCK DRIVER, Loading Dose (mcg): 25, TRUCK DRIVER Dose (mcg): 10, Lockout Interval (min): 8, Continuous Dose (mcg/hr): 25, 4-Hour Limit (mcg): 300, 2.5 mL/hr, pain PRN, Start Date: 08/21/22 15:08:00 EDT, Dispense [facility]... lisinopril, 2.5 mg, Oral, Tab, Daily, First Dose: 08/21/22 9:00:00 EDT, Dispense From Location: [facility], 08/21/22 6:35:00 EDT metFORMIN, 500 mg, Oral, Tab, BID, First Dose: 08/21/22 9:00:00 EDT, Dispense From Location: [facility], 08/21/22 6:35:00 EDT nalbuphine, 2.5 mg, IV Push, Injection, q6hr, PRN refractory itching, First Dose: 08/21/22 15:08:00 EDT, Dispense From Location: [facility], 08/21/22 15:08:00 EDT omeprazole, 40 mg, Oral, Cap-DR, Daily, First Dose: 08/21/22 7:00:00 EDT, Dispense From Location: [facility], 08/21/22 6:35:00 EDT ondansetron, 4 mg, IV Push, Injection, q6hr, PRN nausea/vomiting, First Dose: 08/21/22 15:08:00 EDT, Dispense From Location: [facility], 08/21/22 15:08:00 EDT pregabalin, 100 mg, Oral, Cap, BID, First Dose: 08/21/22 9:00:00 EDT, Dispense From [facility], 08/21/22 6:35:00 EDT Admit to Inpatient Communication [...] sedation reassess in am Electronically signed by Tylor KAMARA MD, Delfino Freeman 08/21/22 15:45 EDT Normal [facility] Operative Reporton 3 Operative Report Indication for [...] with locally harvested autograft from laminectomy and [facility] [employer] elevate expandable cage 8-12 mm; posterolateral arthrodesis L3-L4 and L5 bilaterally with locally harvested autograft and small kit infuse from [employer] due to chronic nicotine abuse; transpedicular fixation L3, L4, L5 bilaterally with [facility] [employer] Osteogrip screws 6.5 mm in diameter; resection of juxta articular facet cyst left L4-5; computer-assisted hardware placement using [employer] station and [employer] O-arm Surgeon(s) Delfino Snider III, MD (Surgeon - Primary) Manager Animation Dasha Waggoner PA-C (Second Officer) Anesthesia General Maulik Joseph MD (Backing In Machine Tender) Koko Eugene (Provider) Estimated Blood Loss 300.0 [...] is secured. Patient is carefully turned onto [facility] operating room table and head and neck [...] spinous pro (more content not included)... Normal [facility] POC Glucose Randomon 023 Glucose [Mass/Vol] 152 mg/dL High 70-99 [facility] Comment on above: Performed By: #### C D:[id number] #### [facility] [address] [place] [address] Glucose [Mass/Vol] 206 mg/dL High 70-99 [facility] Comment on above: Performed By: #### C D:[id number] #### [facility] [address] [place] [address] Glucose [Mass/Vol] 179 mg/dL High 70-99 [facility] Comment on above: Performed By: #### C D:[id number] ####[facility] [place] [address] XR Spine Lumbosacral 4 Views + in [...] Signed, Electronically Signed in Other Vendor System) Normal [facility] Provider Letteron 08-11-2022 Provider Letter Gayla Martinez CNP [address] [place] [address] Re: Stephan Rene Date of Visit: 08/10/2022 Dear Gayla Martinez CNP, Let me know if you have any questions or concerns. Sincerely, Lin Cintron Providers: [CC Letter Providers Please see attached lab results The following document(s) were included in the letter: August 10, 2022 13:56:47 EDT - (08/10/2022) Reminder Message Normal [facility] .UA Microscp Aon 08-10-2022 UA Hyline Cast Qual 3-5 Normal Negative [facility] Comment on above: Performed By: #### C D:[id number] #### [address] [address] UA Mucus Present Abnormal Absent [facility] Comment on above: Performed By: #### C D:[id number] #### [address] [address] UA RBC Quant 0 /HPF Normal 0-5 [facility] Comment on above: Performed By: #### C D:[id number] #### [address] [address] UA Squepi Cells Quant 2 /HPF Normal 0-29 [facility] Comment on above: Performed By: #### C D:[id number] #### [address] [address] UA WBC Quant 0 /HPF Normal 0-5 [facility] Comment on above: Performed By: #### C D:[id number] #### [address] [address] .eGFRon 08-10-2022 GFR/1.73 sq M.predicted MDRD (S/P/Bld) [Vol rate/Area] mL/min/{1.73_m2} Normal >=60 [facility] Comment on above: Result Comment: [facility] have implemented the eGFR calculation [...] GFR calculated using the CKD-Epi Creatinine Equation (2021): eGFR = 142 X min(SCr/?, 1)? X [...] = years Performed By: #### E GFR ####[address] [address] ABO/Rhon 08-10-2022 ABO/Rh ABO/Rh: O NEG Normal [facility] Comment on above: Performed By: #### A KAMLESH ####[address] [address] ABSC Autoon 08-10-2022 ABSC Auto Negative Normal [facility] Comment on above: Performed By: #### A SA ####[address] [address] CBC w/ Diffon 08-10-2022 Erythrocyte distribution width (RBC) [Ratio] 13.3 % Normal 11.6-14.8 [facility] Comment on above: Performed By: #### C D:[id number] #### [address] [address] Hematocrit (Bld) [Volume fraction] 44.0 % Normal 36.0-46.0 [facility] Comment on above: Performed By: #### C D:[id number] #### [address] [address] Hemoglobin (Bld) [Mass/Vol] 15.0 g/dL Normal 12.0-16.0 [facility] Comment on above: Performed By: #### C D:[id number] #### [address] [address] MCH (RBC) [Entitic mass] 32.6 pg Normal 27.0-35.0 [facility] Comment on above: Performed By: #### C D:[id number] #### [address] [address] MCHC 34.0 % Normal 31.0-37.0 [facility] Comment on above: Performed By: #### C D:[id number] #### [address] [address] MCV (RBC) [Entitic vol] 95.8 fL Normal 80.0-100.0 [facility] Comment on above: Performed By: #### C D:[id number] #### [address] [address] Platelet 298 x10*3/mcL Normal 150-350 [facility] Comment on above: Performed By: #### C D:[id number] #### [place] [id number] Platelet mean volume (Bld) [Entitic vol] 10.1 fL Normal 6.7-10.6 [facility] Comment on above: Performed By: #### C D:[id number] #### [place] [id number] RBC 4.59 x10*6/mcL Normal 3.80-5.20 [facility] Comment on above: Performed By: #### C D:[id number] #### [address] [address] WBC 12.9 x10*3/mcL High 4.5-11.0 [facility] Comment on above: Performed By: #### C D:[id number] #### [address] [address] CMPon 08-10-2022 Albumin [Mass/Vol] 4.4 g/dL Normal 3.2-4.9 [facility] Comment on above: Performed By: #### C OMP ####[address] [address] Albumin/Globulin [Mass ratio] 1.4 {ratio} Normal 1.1-2.2 [facility] Comment on above: Performed By: #### C OMP ####[address] [address] Alk Phos 75 IU/L Normal 32-91 [facility] Comment on above: Performed By: #### C OMP ####[address] [address] ALT [Catalytic activity/Vol] 14 U/L Normal 14-54 [facility] Comment on above: Performed By: #### C OMP ####[address] [address] Anion gap [Moles/Vol] 13 mmol/L Normal 7-17 [facility] Comment on above: Performed By: #### C OMP ####[address] [address] AST [Catalytic activity/Vol] 20 U/L Normal 15-41 [facility] Comment on above: Performed By: #### C OMP ####[address] [address] Bili Total 0.6 mg/dL Normal 0.3-1.2 [facility] Comment on above: Performed By: #### C OMP ####[address] [address] Calcium [Mass/Vol] 9.3 mg/dL Normal 8.5-10.3 [facility] Comment on above: Performed By: #### C OMP ####[address] [address] Chloride [Moles/Vol] 103 mmol/L Normal 98-110 [facility] Comment on above: Performed By: #### C OMP ####[address] [place] [address] CO2 [Moles/Vol] 24 mmol/L Normal 22-32 [facility] Comment on above: Performed By: #### C OMP ####[address] [address] Creatinine [Mass/Vol] 0.85 mg/dL Normal 0.44-1.03 [facility] Comment on above: Performed By: #### C OMP ####[address] [address] Glucose [Mass/Vol] 108 mg/dL High 70-99 [facility] Comment on above: Performed By: #### C OMP ####[address] [address] Potassium [Moles/Vol] 3.7 mmol/L Normal 3.4-4.8 [facility] Comment on above: Performed By: #### C OMP ####[address] [address] Protein [Mass/Vol] 7.5 g/dL Normal 6.5-8.1 [facility] Comment on above: Performed By: #### C OMP ####[address] [address] Sodium [Moles/Vol] 136 mmol/L Normal 133-142 [facility] Comment on above: Performed By: #### C OMP ####[address] [address] Urea nitrogen [Mass/Vol] 15 mg/dL Normal 8-26 [facility] Comment on above: Performed By: #### C OMP ####[address] [address] Urea nitrogen/Creatinine [Mass ratio] 17.6 mg/mg Normal 10.0-20.0 [facility] Comment on above: Performed By: #### C OMP ####[address] [address] Diff Autoon 08-10-2022 Baso Absolute 0.1 x10*3/mcL Normal 0.0-0.[address] [facility] Comment on above: Performed By: #### . Automated Diff ####[address] [address] Basophils/100 WBC (Bld) 0.4 % Normal 0.0-1.5 [facility] Comment on above: Performed By: #### . Automated Diff ####[address] [address] Eos Absolute 0.1 x10*3/mcL Normal 0.0-0.4 [facility] Comment on above: Performed By: #### . Automated Diff ####[address] [address] Eosinophils/100 WBC (Bld) 0.9 % Normal 0.0-5.4 [facility] Comment on above: Performed By: #### . Automated Diff ####[address] [address] Lymph Absolute 3.8 x10*3/mcL Normal 1.0-4.8 [facility] Comment on above: Performed By: #### . Automated Diff ####[address] [address] Lymphocytes/100 WBC (Bld) 29.6 % Normal 27.2-40.8 [facility] Comment on above: Performed By: #### . Automated Diff ####[address] [address] [place] Absolute 0.8 x10*3/mcL Normal 0.1-1.[address] [facility] Comment on above: Performed By: #### . Automated Diff ####[address] [address] Monocytes/100 WBC (Bld) 5.9 % Normal 3.7-11.9 [facility] Comment on above: Performed By: #### . Automated Diff ####[address] [address] Neutro Absolute 8.1 x10*3/mcL High 1.8-7.7 [facility] Comment on above: Performed By: #### . Automated Diff ####[address] [address] Neutro Auto 63.2 % Normal 47.2-70.8 [facility] Comment on above: Performed By: #### . Automated Diff ####[address] [address] HbA1c w/Rflx Fructosamineon 08-10-2022 Glucose [Mass/Vol] 128 mg/dL High 68-114 [facility] Comment on above: Result Comment: Math ematical Calc approx. The mean gluc equivalency of A1c Performed By: #### C D:[id number] #### [address] [address] Hgb A1c 6.1 % A1c High 4.0-5.6 [facility] Comment on above: Result Comment: Refe rence Range: 4.0 - 5.6 % Normal 5.7 - 6.4 % Pre-Diabetes > 6.5 % Diabetes Performed By: #### C D:[id number] #### [address] [address] PTon 08-10-2022 INR Coag (PPP) [Relative time] 1.0 {INR} Normal <=3.5 [facility] Comment on above: Result Comment: INR has no normal range. INR Therapeutic range is: 2.0-3.0 (AF, CVA, TIAs, DVT prophylaxis, acute DVT) 2.5-3.5 ([facility], recurrent thrombosis/emboli) Performed By: #### C D:[id number] #### [address] [address] PT Coag (PPP) [Time] 10.7 s Normal 9.3-11.9 [facility] Comment on above: Performed By: #### C D:[id number] #### [address] [address] PTTon 08-10-2022 aPTT Coag (Bld) [Time] 20.9 s Normal 20.6-29.2 [facility] Comment on above: Performed By: #### P TT ####[address] [address] Provider Letteron 08-10-2022 Provider Letter Gayla Martinez CNP [address] [place] [address] Re: Stephan López Date of Visit: 08/10/2022 Dear Gayla Martinez CNP, Let me know if you have any questions or concerns. Sincerely, Lin Cintron Providers: [CC Letter Providers Please see attached lab results The following document(s) were included in the letter: August 10, 2022 13:04:48 EDT - (08/10/2022) Reminder Message Normal [facility] Provider Letter Gayla Martinez CNP [address] [place] [address] Re: Stephan López Date of Visit: 08/10/2022 Dear Gayla Martinez CNP, Let me know if you have any questions or concerns. Sincerely, Lin Cintron Providers: [CC Letter Providers Please see attached ECG results The following document(s) were included in the letter: August 10, 2022 13:05:57 EDT - (08/10/2022) Reminder Message Normal [facility] UA w Culture if Indon 2022 Color (U) Yellow Normal [facility] Comment on above: Performed By: #### U CI ####[address] [address] Ketones Ql (U) Negative Normal Negative [facility] Comment on above: Performed By: #### U CI ####[address] [address] UA Blood Negative Normal Negative [facility] Comment on above: Performed By: #### U CI ####[address] [address] UA Clarity Clear Normal [facility] Comment on above: Performed By: #### U CI ####[address] [address] UA Glucose Normal Normal Negative [facility] Comment on above: Performed By: #### U CI ####[address] [address] UA Leukocyte Esterase Negative Normal Negative [facility] Comment on above: Performed By: #### U CI ####[place] [id number] UA Nitrite Negative Normal Negative [facility] Comment on above: Performed By: #### U CI ####[address] [address] UA pH 5.0 Normal 4.5 - 7.8 [facility] Comment on above: Performed By: #### U CI ####[place] [address] UA Protein 10 mg/dL Normal Negative [facility] Comment on above: Performed By: #### U CI ####[place] [address] UA Source Clean Catch Normal [facility] Comment on above: Performed By: #### U CI ####[place] [address] UA Spec Grav 1.025 Normal 1.003-1.035 [facility] Comment on above: Performed By: #### U CI ####[place] [address] UA Urobilinogen Normal Normal 0.2 - 1.0 [facility] Comment on above: Performed By: #### U CI ####[place] [address] Urobilinogen (U) [Mass/Vol] Negative Normal Negative [facility] Comment on above: Performed By: #### U CI ####[place] [address] XR Chest 2 Viewson 3 XR Chest [...] Signed, Electronically Signed in Other Vendor System) Normal [facility] Neurosurgery Office/Clinic N zain 07-23-2022 Neurosurgery Office/Clinic Note Chief Complaint Patient is being seen for a back follow up. History of Present Illness The patient is a pleasant 62-year-old right-handed female with history of dwc-bkihdfv-ogjomwklr diabetes mellitus diagnosed in 2009, chronic nicotine [...] (provider interpretation): MRI cervical spine 05/29/2022 at [facility] reveals multilevel degenerative disc disease, most notably [...] overt instability. MRI lumbar spine 04/29/2022 at [facility] reveals multilevel degenerative disc disease. Significant facet [...] there is (more content not included)... Normal [facility] Neurosurgery Office/Clinic Note Chief Complaint Patient is [...] Sibling. I (more content not included)... Normal [facility] Office Visiton 07-03-2022 Follow-up visit [id number] James López 1960 F Date Provider Department Center 07/03/2022 INA JONES Family History Problem Relation Age of Onset Other Mother Heart attack Father Other Father Other Father Other Maternal Grandmother Family Status - Relation Status Age at Mother Father Maternal Grandmother Level of Service:37306 [place] OFFICE/OUTPATIENT ESTABLISHED LOW [facility] 20-29 MIN Reason for Visit and Comments: Hypertension [067067] pericardial effusion [Other] Normal [facility] Neurosurgery Office/Clinic N oteon 06-24-2022 Neurosurgery Office/Clinic Note Chief Complaint Patient is being seen for a back follow up. History of Present Illness The patient is a pleasant 62-year-old right-handed female with history of tjw-hoaboro-myojapepe diabetes mellitus diagnosed in 2009, chronic nicotine [...] (provider interpretation): MRI cervical spine 05/29/2022 at [facility] reveals multilevel degenerative disc disease, most notably [...] overt instability. MRI lumbar spine 04/29/2022 at [facility] reveals multilevel degenerative disc disease. Significant facet [...] measuring appro (more content not included)... Normal [facility] PROF CHEM 8 (BAS METB)on Anion gap [Moles/Vol] 12.9 mmol/L Normal [facility] Comment on above: Performed By: #### C BC #### [facility] [address] [place] [address] [address] Yariel Herrera Calcium [Mass/Vol] 9.0 mg/dL Normal 8.5-10.1 [facility] Comment on above: Performed By: #### C BC #### [facility] [address] [place] [address] [address] Yariel Herrera Chloride [Moles/Vol] 106 mmol/L Normal 98-107 [facility] Comment on above: Performed By: #### C BC #### [facility] [address] [place] [address] [address] Yariel Herrera CO2 [Moles/Vol] 28.3 mmol/L Normal 21.0-32.0 [facility] Comment on above: Performed By: #### C BC #### [facility] [address] [place] [address] [address] Yariel Herrera Creatinine [Mass/Vol] 0.81 mg/dL Normal 0.55-1.02 [facility] Comment on above: Performed By: #### C BC #### [facility] [address] [place] [address] [address] Yariel Herrera EGFR-AF [place] >60 Normal >=60 [facility] Comment on above: Performed By: #### C BC #### [facility] [address] [place] [address] [address] Yariel Herrera EGFR-NON AF [place] >60 Normal >=60 [facility] Comment on above: Performed By: #### C BC #### [facility] [address] [place] [address] [address] Yariel Herrera Glucose [Mass/Vol] 103 mg/dL Normal 74-106 [facility] Comment on above: Performed By: #### C BC #### [facility] [address] [place] [address] Dr. Yariel Herrera Potassium [Moles/Vol] 4.2 mmol/L Normal 3.5-5.1 [facility] Comment on above: Performed By: #### C BC #### [facility] [address] [place] [address] Dr. Yariel Herrera Sodium [Moles/Vol] 143 mmol/L Normal 136-145 [facility] Comment on above: Performed By: #### C BC #### [facility] [address] [place] [address] Dr. Yariel Herrera Urea nitrogen [Mass/Vol] 9.0 mg/dL Normal 7.0-18.0 [facility] Comment on above: Performed By: #### C BC #### [facility] [address] [place] [address] Dr. Yariel Herrera Urea nitrogen/Creatinine [Mass ratio] 11.1 mg/mg Normal [facility] Comment on above: Performed By: #### C BC #### [facility] [address] [place] [address] [address] Yariel Herrera 37on 06-10-2022 37 Start lisinopril 2.5 mg daily, Have labs/blood checked in 1 week for kidney function Monitor b/p at home 1-2 times/day and record on a log- bring with her to next visit. If you notice a dry, persistent cough- stop lisinopril and call office please. Normal [facility] Office Visiton 06-10-2022 Follow-up visit [id number] James López 1960 F Date Provider Department Center 06/10/2022 INA JONES [facility] [facility] Family History Problem Relation Age of Onset Other Mother Heart attack Father Other Father Other Father Other Maternal Grandmother Family Status - Relation Status Age at Mother Father Maternal Grandmother Level of Service:[address] [place] OFFICE/OUTPATIENT ESTABLISHED MOD MDM 30-39 MIN Normal [facility] ECHOCARDIO M/2D COMPLETEon 0 05-08-2022 ECHOCARDIO M/2D COMPLETE Patient: RENE STEPHAN Lin. Exam Date: 05/08/2022 : 1960 Gender:F Ordering : CARL WILLIS Admission #: [id number] Family : GAURAV MARTINEZ [facility] Order #: [id number] CLICK HERE TO VIEW EXAM ECHOCARDIOGRAM REPORT [...] M.D. on 05/08/2022 at 14:18 Approved by: Elie Garzon M.D. on 05/08/2022 at 14:20 Normal [facility] Neurosurgery Office/Clinic N zain 05-05-2022 Neurosurgery Office/Clinic Note Chief Complaint Patient is being seen to review imaging. History of Present Illness The patient is a pleasant 61-year-old right-handed female with history of apm-rwceofb-yedghnlie diabetes mellitus diagnosed in 2009, chronic nicotine [...] (provider interpretation): MRI lumbar spine 04/29/2022 at [facility] reveals multilevel degenerative disc disease. Significant facet [...] L5-S1. Additional imaging: DEXA scan 04/29/2022 at [facility] revealing osteopenia with T score -1.2. Review of Systems Constitutional: [No fevers, chills, sweats] Eye: [No recent visual problems] ENMT: [No ear pain, nasal conge (more content not included)... Normal [facility] Provider Letteron 05-05-2022 Provider Letter Gayla Martinez CNP [address] [place] [address] Re: Stephan Rene Date of Visit: 05/05/2022 Dear Gayla Martinez CNP, This patient was recently seen in the neurosurgical office. Please see attached note for further details. Let me know if you have any questions or concerns. Sincerely, MICHELLE Engle Providers: The following document(s) were included in the letter: May 05, 2022 15:17:18 EDT - (05/05/2022) Neurosurgery Office Visit Note Normal [facility] ABHINAV by IFAon 01-08-2022 Antinuclear Antibodies, IFA Negative Normal [facility] Comment on above: Result Comment: Nega tive <1:80 Borderline 1:80 Positive >1:80 ICAP nomenclature: AC-0 For more information about Hep-2 cell patterns use ANApatterns.org, the official website for the International Consensus on Antinuclear Antibody (ABHINAV) Patterns (ICAP). Performed By: #### A NAIFA #### [facility] [address] [place] [address] Dr. Yariel Herrera CBC AUTO DIFFon 01-05-2022 BASO # 0.1 103/ul Normal 0.0-0.1 [facility] Comment on above: Performed By: #### C BC #### [facility] [address] [place] [address] Dr. Yariel Herrera Basophils/100 WBC (Bld) 0.6 % Normal 0.2-2.0 [facility] Comment on above: Performed By: #### C BC #### [facility] [address] [place] [address] Dr. Yariel Herrera EO # 0.2 103/ul Normal 0.0-0.7 [facility] Comment on above: Performed By: #### C BC #### [facility] [address] [place] [address] Dr. Yariel Herrera Eosinophils/100 WBC (Bld) 1.4 % Normal 0.9-7.0 [facility] Comment on above: Performed By: #### C BC #### [facility] [address] [place] [address] Dr. Yariel Herrera Erythrocyte distribution width (RBC) [Ratio] 13.6 % Normal 11.0-15.0 [facility] Comment on above: Performed By: #### C BC #### [facility] [address] [place] [address] Dr. Yariel Herrera Hematocrit (Bld) [Volume fraction] 46.6 % Normal 36.0-48.0 [facility] Comment on above: Performed By: #### C BC #### [facility] [address] [place] [address] Dr. Yariel Herrera Hemoglobin (Bld) [Mass/Vol] 15.4 g/dL Normal 12.0-16.0 [facility] Comment on above: Performed By: #### C BC #### [facility] [address] [place] [address] Dr. Yariel Herrera IG # 0.03 10e3/ul Normal 0.00-0.03 [facility] Comment on above: Performed By: #### C BC #### [facility] [address] [place] [address] Dr. Yariel Herrera IG % 0.2 % Normal 0.0-0.5 [facility] Comment on above: Performed By: #### C BC #### [facility] [address] [place] [address] Dr. Yariel Herrera LYMPH # 4.2 103/ul Critically high 1.2-3.8 [facility] Comment on above: Performed By: #### C BC #### [facility] [address] [place] [address] Dr. Yariel Herrera Lymphocytes/100 WBC (Bld) 31.3 % Normal 20.5-60.0 [facility] Comment on above: Performed By: #### C BC #### [facility] [address] [place] [address] Dr. Yariel Herrera MANUAL DIFF REQ NO Normal [facility] Comment on above: Performed By: #### C BC #### [facility] [address] [place] [address] Dr. Yariel Herrera MCH (RBC) [Entitic mass] 31.6 pg Normal 26.7-34.0 [facility] Comment on above: Performed By: #### C BC #### [facility] [address] [place] [address] Dr. Yariel Herrera MCHC (RBC) [Mass/Vol] 33.0 g/dL Normal 29.9-35.2 [facility] Comment on above: Performed By: #### C BC #### [facility] [address] [place] [address] Dr. Yariel Herrera MCV (RBC) [Entitic vol] 95.7 fL Normal 81.0-99.0 [facility] Comment on above: Performed By: #### C BC #### [facility] [address] [address] [address] Yariel Herrera MONO # 0.9 103/ul Critically high 0.3-0.8 [facility] Comment on above: Performed By: #### C BC #### [facility] [address] [address] [address] Yariel Herrera Monocytes/100 WBC (Bld) 6.8 % Normal 1.7-12.0 [facility] Comment on above: Performed By: #### C BC #### [facility] [address] [place] [address] Dr. Yariel Herrera NEUT # 8.0 103/ul Critically high 1.4-6.5 [facility] Comment on above: Performed By: #### C BC #### [facility] [address] [place] [address] Dr. Yariel Herrera Neutrophils/100 WBC (Bld) 59.7 % Normal 43.0-75.0 [facility] Comment on above: Performed By: #### C BC #### [facility] [address] [place] [address] Dr. Yariel Herrera Platelet mean volume (Bld) [Entitic vol] 10.7 fL Normal 9.5-13.5 [facility] Comment on above: Performed By: #### C BC #### [facility] [address] [place] [address] Dr. Yariel Herrera PLT 340 103/ul Normal 150-450 [facility] Comment on above: Performed By: #### C BC #### [facility] [address] [place] [address] Dr. Yariel Herrera RBC 4.87 106/ul Normal 4.20-5.40 [facility] Comment on above: Performed By: #### C BC #### [facility] [address] [place] [address] Dr. Yariel Herrera WBC 13.4 103/ul Critically high 4.0-11.0 [facility] Comment on above: Performed By: #### C BC #### [facility] [address] [place] [address] Dr. Yariel Herrera FREE T4on 01-05-2022 Free T4 [Mass/Vol] 1.06 ng/dL Normal 0.76-1.46 [facility] Comment on above: Performed By: #### C BC #### [facility] [address] [place] [address] Dr. Yariel Herrera PROF 14(COMP METB)on 022 Albumin [Mass/Vol] 3.9 g/dL Normal 3.4-5.0 [facility] Comment on above: Performed By: #### C MP, TSH #### [facility] [address] [place] [address] Dr. Yariel Herrera Albumin/Globulin [Mass ratio] 1.1 {ratio} Normal [facility] Comment on above: Performed By: #### C MP, TSH #### [facility] [address] [place] [address] Dr. Yariel Herrera ALP [Catalytic activity/Vol] 99 U/L Normal 46-116 [facility] Comment on above: Performed By: #### C MP, TSH #### [facility] [address] [place] [address] Dr. Yariel Herrera ALT [Catalytic activity/Vol] 17 U/L Normal 14-59 [facility] Comment on above: Performed By: #### C MP, TSH #### [facility] [address] [place] [address] Dr. Yariel Herrera Anion gap [Moles/Vol] 10.1 mmol/L Normal [facility] Comment on above: Performed By: #### C MP, TSH #### [facility] [address] [place] [address] Dr. Yariel Herrera AST [Catalytic activity/Vol] 14 U/L Critically low 15-37 [facility] Comment on above: Performed By: #### C MP, TSH #### [facility] [address] [place] [address] Dr. Yariel Herrera Bilirubin [Mass/Vol] 0.3 mg/dL Normal 0.2-1.0 [facility] Comment on above: Performed By: #### C MP, TSH #### [facility] [address] [place] [address] Dr. Yariel Herrera Calcium [Mass/Vol] 9.4 mg/dL Normal 8.5-10.1 [facility] Comment on above: Performed By: #### C MP, TSH #### [facility] [address] [place] [address] Dr. Yariel Herrera Chloride [Moles/Vol] 103 mmol/L Normal 98-107 [facility] Comment on above: Performed By: #### C MP, TSH #### [facility] [address] [place] [address] Dr. Yariel Herrera CO2 [Moles/Vol] 30.9 mmol/L Normal 21.0-32.0 [facility] Comment on above: Performed By: #### C MP, TSH #### [facility] [address] [place] [address] Dr. Yariel Herrera Creatinine [Mass/Vol] 0.88 mg/dL Normal 0.55-1.02 [facility] Comment on above: Performed By: #### C MP, TSH #### [facility] [address] [place] [address] Dr. Yariel Herrera EGFR-AF [place]OREAN >60 Normal >=60 [facility] Comment on above: Performed By: #### C MP, TSH #### [facility] [address] [place] [address] Dr. Yariel Herrera EGFR-NON AF [place] >60 Normal >=60 [facility] Comment on above: Performed By: #### C MP, TSH #### [facility] [address] [place] [address] Dr. Yariel Herrera Globulin (S) [Mass/Vol] 3.5 g/dL Normal [facility] Comment on above: Performed By: #### C MP, TSH #### [facility] [address] [place] [address] Dr. Yariel Herrera Glucose [Mass/Vol] 117 mg/dL Critically high 74-106 [facility] Comment on above: Performed By: #### C MP, TSH #### [facility] [address] [address] [address] Yariel Herrera Potassium [Moles/Vol] 4.0 mmol/L Normal 3.5-5.1 [facility] Comment on above: Performed By: #### C MP, TSH #### [facility] [address] [address] [address] Yariel Herrera Protein [Mass/Vol] 7.4 g/dL Normal 6.4-8.2 [facility] Comment on above: Performed By: #### C MP, TSH #### [facility] [address] [place] [address] Dr. Yariel Herrera Sodium [Moles/Vol] 140 mmol/L Normal 136-145 [facility] Comment on above: Performed By: #### C MP, TSH #### [facility] [address] [place] [address] Dr. Yariel Herrera Urea nitrogen [Mass/Vol] 18.0 mg/dL Normal 7.0-18.0 [facility] Comment on above: Performed By: #### C MP, TSH #### [facility] [address] [place] [address] Dr. Yariel Herrera Urea nitrogen/Creatinine [Mass ratio] 20.5 mg/mg Normal [facility] Comment on above: Performed By: #### C MP, TSH #### [facility] [address] [place] [address] Dr. Yariel Herrera TSHon 01-05-2022 TSH 1.380 uIU/mL Normal 0.358-3.740 [facility] Comment on above: Performed By: #### C MP, TSH #### [facility] [address] [place] [address] Dr. Yariel Herrera GLYCOHEMOGLOBIN A1Con 2021 ADA RECOMMENDATION SEE BELOW Normal [facility] Comment on above: Result Comment: ADA RECOMMENDED LIMIT 4.0 - 6.0 ADA THERAPEUTIC TARGET < 7.0 ACTION SUGGESTED > 7.0 Performed By: #### A 1C #### [facility] [address] [place], [place] [address] Dr. Yariel Herrera Glucose [Mass/Vol] 137 mg/dL Normal [facility] Comment on above: Performed By: #### A 1C #### [facility] [address] [place], [place] [address] Dr. Yariel Herrera HbA1c (Bld) [Mass fraction] 6.4 % Critically high 4.5-6.2 [facility] Comment on above: Performed By: #### A 1C #### [facility] [address] [place], [place] [address] Dr. Yariel Herrera ECHOCARDIO M/2D COMPLETEon 0 10-16-2021 ECHOCARDIO M/2D COMPLETE Patient: STEPHAN LÓPEZ Exam Date: 10/16/2021 : 1960 Gender:F Ordering : CARL WILLIS Admission #: [id number] Family : Order #: [id number] CLICK HERE TO VIEW EXAM ECHOCARDIOGRAM REPORT [...] Melvin M.D. on 10/16/2021 at 17:12 Normal [facility] ECHOCARDIO M/2D COMPLETEon 0 09-16-2021 ECHOCARDIO M/2D COMPLETE Patient: STEPHAN LÓPEZ Exam Date: 09/16/2021 : 1960 Gender:F Ordering : GAURAV GAYLA MARTINEZ [facility] Admission #: [id number] Family : Order #: [id number] CLICK HERE TO VIEW EXAM ECHOCARDIOGRAM REPORT [...] Melvin M.D. on 09/17/2021 at 13:02 Normal [facility] CBC AUTO DIFFon 08-04-2021 BASO # 0.1 103/ul Normal 0.0-0.1 [facility] Comment on above: Performed By: #### C BC #### [facility] [address] [address] [address] Yariel Herrera Basophils/100 WBC (Bld) 0.6 % Normal 0.2-2.0 [facility] Comment on above: Performed By: #### C BC #### [facility] [address] [address] [address] Yariel Herrera EO # 0.1 103/ul Normal 0.0-0.7 [facility] Comment on above: Performed By: #### C BC #### [facility] [address] [place] [address] Dr. Yariel Herrera Eosinophils/100 WBC (Bld) 0.9 % Normal 0.9-7.0 [facility] Comment on above: Performed By: #### C BC #### [facility] [address] [address] [address] Yariel Herrera Erythrocyte distribution width (RBC) [Ratio] 13.8 % Normal 11.0-15.0 [facility] Comment on above: Performed By: #### C BC #### [facility] [address] [place] [address] Dr. Yariel Herrera Hematocrit (Bld) [Volume fraction] 47.1 % Normal 36.0-48.0 [facility] Comment on above: Performed By: #### C BC #### [facility] [address] [address] [address] Yariel Herrera Hemoglobin (Bld) [Mass/Vol] 15.2 g/dL Normal 12.0-16.0 [facility] Comment on above: Performed By: #### C BC #### [facility] [address] [address] [address] Yariel Herrera IG # 0.04 10e3/ul Critically high 0.00-0.03 [facility] Comment on above: Performed By: #### C BC #### [facility] [address] [place] [address] Dr. Yariel Herrera IG % 0.3 % Normal 0.0-0.5 [facility] Comment on above: Performed By: #### C BC #### [facility] [address] [place] [address] Dr. Yariel Herrera LYMPH # 3.7 103/ul Normal 1.2-3.8 [facility] Comment on above: Performed By: #### C BC #### [facility] [address] [place] [address] Dr. Yariel Herrera Lymphocytes/100 WBC (Bld) 30.6 % Normal 20.5-60.0 [facility] Comment on above: Performed By: #### C BC #### [facility] [address] [place] [address] Dr. Yariel Herrera MANUAL DIFF REQ NO Normal [facility] Comment on above: Performed By: #### C BC #### [facility] [address] [place] [address] Dr. Yariel Herrera MCH (RBC) [Entitic mass] 32.0 pg Normal 26.7-34.0 [facility] Comment on above: Performed By: #### C BC #### [facility] [address] [place] [address] Dr. Yariel Herrera MCHC (RBC) [Mass/Vol] 32.3 g/dL Normal 29.9-35.2 [facility] Comment on above: Performed By: #### C BC #### [facility] [address] [place] [address] Dr. Yariel Herrera MCV (RBC) [Entitic vol] 99.2 fL Critically high 81.0-99.0 [facility] Comment on above: Performed By: #### C BC #### [facility] [address] [place] [address] Dr. Yariel Herrera MONO # 0.9 103/ul Critically high 0.3-0.8 [facility] Comment on above: Performed By: #### C BC #### [facility] [address] [place] [address] Dr. Yariel Herrera Monocytes/100 WBC (Bld) 7.4 % Normal 1.7-12.0 [facility] Comment on above: Performed By: #### C BC #### [facility] [address] [place] [address] Dr. Yariel Herrera NEUT # 7.3 103/ul Critically high 1.4-6.5 [facility] Comment on above: Performed By: #### C BC #### [facility] [address] [place] [address] Dr. Yariel Herrera Neutrophils/100 WBC (Bld) 60.2 % Normal 43.0-75.0 [facility] Comment on above: Performed By: #### C BC #### [facility] [address] [place] [address] Dr. Yariel Herrera Platelet mean volume (Bld) [Entitic vol] 11.7 fL Normal 9.5-13.5 [facility] Comment on above: Performed By: #### C BC #### [facility] [address] [place] [address] Dr. Yariel Herrera PLT 330 103/ul Normal 150-450 [facility] Comment on above: Performed By: #### C BC #### [facility] [address] [place] [address] Dr. Yariel Herrera RBC 4.75 106/ul Normal 4.20-5.40 [facility] Comment on above: Performed By: #### C BC #### [facility] [address] [place] [address] Dr. Yariel Herrera WBC 12.1 103/ul Critically high 4.0-11.0 [facility] Comment on above: Performed By: #### C BC #### [facility] [address] [place] [address] Dr. Yariel Herrera FREE T3on 08-04-2021 FREE T3 2.46 pg/mlL Normal 2.18-3.98 [facility] Comment on above: Performed By: #### C BC #### [facility] [address] [place] [address] Dr. Yariel Herrera FREE T4on 08-04-2021 Free T4 [Mass/Vol] 1.08 ng/dL Normal 0.76-1.46 [facility] Comment on above: Performed By: #### F T4 #### [facility] [address] [place] [address] Dr. Yariel Herrera PROF 14(COMP METB)on 022 Albumin [Mass/Vol] 4.2 g/dL Normal 3.4-5.0 [facility] Comment on above: Performed By: #### C BC #### [facility] [address] [place] [address] Dr. Yariel Herrera Albumin/Globulin [Mass ratio] 1.2 {ratio} Normal [facility] Comment on above: Performed By: #### C BC #### [facility] [address] [place] [address] Dr. Yariel Herrera ALP [Catalytic activity/Vol] 87 U/L Normal 46-116 [facility] Comment on above: Performed By: #### C BC #### [facility] [address] [place] [address] Dr. Yariel Herrera ALT [Catalytic activity/Vol] 25 U/L Normal 14-59 [facility] Comment on above: Performed By: #### C BC #### [facility] [address] [place] [address] Dr. Yariel Herrera Anion gap [Moles/Vol] 13.3 mmol/L Normal [facility] Comment on above: Performed By: #### C BC #### [facility] [address] [place] [address] Dr. Yariel Herrera AST [Catalytic activity/Vol] 15 U/L Normal 15-37 [facility] Comment on above: Performed By: #### C BC #### [facility] [address] [place] [address] Dr. Yariel Herrera Bilirubin [Mass/Vol] 0.5 mg/dL Normal 0.2-1.0 [facility] Comment on above: Performed By: #### C BC #### [facility] [address] [place], [place] [id number] Dr. Yariel Herrera Calcium [Mass/Vol] 9.6 mg/dL Normal 8.5-10.1 [facility] Comment on above: Performed By: #### C BC #### [facility] [address] [place] [address] Dr. Yariel Herrera Chloride [Moles/Vol] 103 mmol/L Normal 98-107 [facility] Comment on above: Performed By: #### C BC #### [facility] [address] [place] [address] Dr. Yariel Herrera CO2 [Moles/Vol] 28.9 mmol/L Normal 21.0-32.0 [facility] Comment on above: Performed By: #### C BC #### [facility] [address] [place] [address] Dr. Yariel Herrera Creatinine [Mass/Vol] 0.84 mg/dL Normal 0.55-1.02 [facility] Comment on above: Performed By: #### C BC #### [facility] [address] [place] [address] Dr. Yariel Herrera EGFR-AF [place] >60 Normal >=60 [facility] Comment on above: Performed By: #### C BC #### [facility] [address] [place] [address] Dr. Yariel Herrera EGFR-NON AF [place] >60 Normal >=60 [facility] Comment on above: Performed By: #### C BC #### [facility] [address] [place] [address] Dr. Yariel Herrera Globulin (S) [Mass/Vol] 3.4 g/dL Normal [facility] Comment on above: Performed By: #### C BC #### [facility] Laboratory [address] [place] [address] Dr. Yariel Herrera Glucose [Mass/Vol] 111 mg/dL Critically high 74-106 [facility] Comment on above: Performed By: #### C BC #### [facility] Laboratory [address] [place] [address] Dr. Yariel Herrera Potassium [Moles/Vol] 4.2 mmol/L Normal 3.5-5.1 [facility] Comment on above: Performed By: #### C BC #### [facility] Laboratory [address] [address] [address] Yariel Herrera Protein [Mass/Vol] 7.6 g/dL Normal 6.4-8.2 [facility] Comment on above: Performed By: #### C BC #### [facility] Laboratory [address] [address] [address] Yariel Herrera Sodium [Moles/Vol] 141 mmol/L Normal 136-145 [facility] Comment on above: Performed By: #### C BC #### [facility] Laboratory [address] [address] [address] Yariel Herrera Urea nitrogen [Mass/Vol] 15.0 mg/dL Normal 7.0-18.0 [facility] Comment on above: Performed By: #### C BC #### [facility] Laboratory [address] [address] [address] Yariel Herrera Urea nitrogen/Creatinine [Mass ratio] 17.9 mg/mg Normal [facility] Comment on above: Performed By: #### C BC #### [facility] Laboratory [address] [address] [address] Yariel Herrera TSHon 08-04-2021 TSH 1.073 uIU/mL Normal 0.358-3.740 [facility] Comment on above: Performed By: #### C BC #### [facility] Laboratory [address] [address] [address] Yariel Herrera TSH RANGE SEE BELOW Normal [facility] Comment on above: Result Comment: <0.3 4 UIU/ml HYPERTHYROID 0.34-5.60 UIU/ml EUTHYROID >5.60 UIU/ml HYPOTHYROID Performed By: #### C BC #### [facility] Laboratory [address] [place] [address] Dr. Yariel Herrera Encounters Encounter Date Encounter Type Care Provider Facility Start: 04-13-2023 ambulatory Dasha Sherwood acility:[facility] Start: 04-07-2023 Reflauren Martinez DINING ROOM HOST/HOSTESS Work Phone: [facility] Comment on above: COPD with exacerbati on (CMS/HCC) (Primary Dx) Start: 02-08-2023 End: 02-09-[facility]23 [facility] Start: 01-25-2023 End: 01-25-2023 ambulatory GAYLA MARTINEZ Not Available Start: 01-19-2023 End: 01-19-2023 ambulatory DANTESHA HAND [facility] Start: 12-22-2022 End: 12-23-2022 ambulatory [facility] Facility[facility] Start: 11-26-2022 End: 11-27-2022 ambulatory [facility] Facility[facility] Start: 11-23-2022 End: 11-24-2022 ambulatory Lara Mar MD Facility: [facility] Start: 10-15-2022 End: 10-16-2022 ambulatory [facility] Start: 09-16-2022 End: 09-17-2022 ambulatory [facility] Start: 08-21-2022 End: 08-24-2022 Evaluation and management of inpatient Delfino Snider III, MD Facility:[facility] Start: 08-14-2022 End: 08-15-2022 ambulatory Delfino Snider III, MD Facility:[facility] Start: 08-10-2022 End: 08-11-2022 ambulatory Delfino Snider III, MD Facility:[facility] Start: 08-06-2022 ambulatory Delfino Snider III, MD Facility:[facility] Start: 07-23-2022 End: 07-24-2022 ambulatory [facility] Start: 07-03-2022 End: 07-03-2022 ambulatory [facility] Start: 06-24-2022 End: 06-25-2022 ambulatory Dasha Waggoner PA-C Facility[facility] Start: 06-17-2022 End: 06-18-2022 ambulatory INA JOHNSON Facility:[facility] Start: 06-10-2022 End: 06-10-2022 ambulatory INA JOHNSON [facility] Start: 05-08-2022 End: 05-09-2022 ambulatory NEAMAD DANNIHOTHANI Facility:[facility] Start: 05-05-2022 End: 05-06-2022 ambulatory Dasha Waggoner PA-C [facility] Start: 01-05-2022 End: 01-06-2022 ambulatory MOHAMAD ALGHOTHANI Facility:[facility] Start: 11-05-2021 End: 11-06-2021 ambulatory CNC MAINTENANCE TECHNICIAN GAYLA SHIRAZ Facility:[facility] Start: 10-16-2021 End: 10-17-2021 ambulatory MOHAMAD ALGHOTHANI Facility:[facility] Start: 09-16-2021 End: 09-17-2021 ambulatory CNC MAINTENANCE TECHNICIAN GAYLA SHIRAZ Facility:[facility] Start: 08-04-2021 End: 08-05-2021 ambulatory CNC MAINTENANCE TECHNICIAN GAYLA JOANNAAbebeARMOND Facility:[facility] Procedures Date Procedure Procedure Detail Performing Clinician Start: 12-03-2022 Mammography Gayla Sara jerome DINING ROOM HOST/HOSTESS Work Phone: Start: 04-20-2013 Colonoscopy Gayla Sara jerome DINING ROOM HOST/HOSTESS Work Phone: Plan of Treatment Date Care Activity Detail Author Start: 09-08-2026 Screening for malign ant neoplasm of colon [facility] Start: 12-04-2023 Screening for malign ant neoplasm of breast Mammogram [facility] Start: 08-22-2023 Influenza vaccination Influenza Vacc ine (#1) [facility] Comment on above: Postponed from 10/23 (Other Medical Reasons) Start: 07-24-2023 Screening for malign ant neoplasm of cervix Cervical Cancer Screening [facility] Comment on above: Postponed from 02/03 (Other Medical Reasons) Start: 05-30-2023 Urine screening for protein Diabetes: Urine Protein Screening [facility] Start: 04-26-2023 Glaucoma screening Diabetes: R etinopathy Screening [facility] Comment on above: Postponed from 02/03 (Other Medical Reasons) Start: 04-26-2023 End: 04-26-2023 Patient encounter procedure 04/26/2023 9:00 AM EST Office Visit [facility] [address] [place] [address] Gayla Martinez NP [address] [place] [address] [facility] Start: 03-05-2023 Hemoglobin A1c measurement Diabetes: Hemoglobin A1C [facility] Start: 02-03-1990 Screening for malign ant neoplasm of cervix HPV/Cotest [facility] Start: 02-03-1981 Screening for malign ant neoplasm of cervix Pap Smear [facility] Start: 1960 Screening for malign ant neoplasm of colon [facility] Immunizations Immunization Date Immunization Notes Care Provider Fa cility 01-06-2022 influenza virus vacc ine, unspecified formulation Gayla Martinez NP Work Phone: [facility] Payers Date Payer Category Payer Private Health Insurance 2022 Medicaid [employer] [place] [id number] 2022-Present [address] [place] [address] [id number] 1960 Unknown [id number] 2..840.1.581080.3.579.2. 593 1960 Unknown [id number] 2..840.1.688918.3.579.2. 593 1960 Unknown [id number] 2.16.840.1.006234.3.579.2. 593 1960 Unknown [id number] 2.16.840.1.610946.3.579.2. 593 1960 Unknown [id number] 2.16.840.1.705757.3.579.2. 593 1960 Unknown [id number] 2.16.840.1.046551.3.579.2. 593 1960 Unknown [id number] 2.16.840.1.718836.3.579.2. 593 1960 Unknown [id number] 2.16.840.1.013499.3.579.2. 1259 1960 Unknown [id number] 2.16.840.1.570211.3.579.2. 196 1960 Unknown [id number] 2.16.840.1.820172.3.579.2. 196 1960 Unknown [id number] 2.16.840.1.327030.3.579.2. 196 1960 Unknown [id number] 2.16.840.1.366897.3.579.2. 196 1960 Unknown [id number] 2.16.840.1.674986.3.579.2. 196 1960 Unknown [id number] 2.16.840.1.748064.3.579.2. 196 1960 Unknown [id number] 2.16.840.1.558762.3.579.2. 196 1960 Unknown [id number] 2.16.840.1.121663.3.579.2. 196 1960 Unknown [id number] 2.16.840.1.137654.3.579.2. 196 1960 Unknown [id number] 2.16.840.1.674309.3.579.2. 196 1960 Unknown [id number] 2.16.840.1.729629.3.579.2. 196 1960 Unknown [id number] 2.16.840.1.008875.3.579.2. 196 1960 Unknown [id number] 2.16.840.1.513575.3.579.2. 196 1960 Unknown [id number] 2.16.840.1.266816.3.579.2. 196 1960 Unknown [id number] 2.16.840.1.513501.3.579.2. 196 1959 Unknown [id number] 1959 Unknown [id number] Social History Date Type Detail Facility Start: [facility]23 [facility] History of tobacco use Cigarette Smoker [facility] Start: 01-25-2023 Cigarettes smoked cu rrent (pack per day) - Reported 0.5 [facility] Start: 01-25-2023 Tobacco use and exposure Smoke less tobacco non-user [facility] Start: 02-08-2023 Alcohol intake Lifetime non-d mariaa (finding) [facility] Start: 01-25-2023 Tobacco use panel [facility] Start: 1960 Sex Assigned At Not on file [facility] Medical Equipment Procedure Code Equipment Code Equipment Original Text Equi pment Identifier Dates 1 Device Daily as needed. [id number] Clinical Notes 06-10-2022 to 01-19-2023 Note Date & Type Note Facility 01-19-2023 Note Cardiovascular Medic [facility] SUBJECTIVE Chief Complaint Patient presents with Follow-up Hypertension Stephan López is a 62 y.o. female here for follow-up. HPI PMHx: HTN, pericardial effusion, HLD She denies any cardiac concerns today. She has back problems. She is 5 months s/p surgery and she is still recovering. She is following with pain management at [facility]. She is not currently checking her BP [...] needed. Dante Hand NP [facility] Cardiovascular Medicine [facility] 01-19-2023 Note Patient here for 6 m [...] All other systems reviewed and are negative. [facility] 08-24-2022 Note Admission Informatio n Pleasant 62-year-old female with a history of hyperlipidemia [...] neurosurgery education form Follow-up: As scheduled preoperatively-call [phone] to confirm appointment to be seen in the neurosurgery clinic approximately 2 weeks after surgery Procedures while admitted: -Decompressive laminectomies of L3 and L4 as well as superior third of L5 with total foraminotomies bilateral L3-4 and L4-5; interbody arthrodesis L4-5 using TLIF technique with locally harvested autograft from laminectomy and [facility] [employer] elevate expandable cage 8-12 mm; posterolateral arthrodesis L3-L4 and L5 bilaterally with locally harvested autograft and small kit infuse from [employer] due to chronic nicotine abuse; transpedicular fixation L3, L4, L5 bilaterally with [facility] [employer] Osteogrip screws 6.5 mm in diameter; resection of juxta articular facet cyst left L4-5; computer-assisted hardware placement using [employer] and [employer] O-arm Medications Home atorvastatin 20 mg oral [...] oral capsule, 500 mg= 1 caps, Oral, [id number] Times magnesium hydroxide 8% oral suspension, 1.2 [...] tabs, 0 Refill(s), 08/31/22 7:48:00 EDT, Pharmacy: [facility] #[id number] Discharge Patient 3. Lumbar radiculopathy Ordered: Discharge Patient 4. Nicotine dependence Ordered: Discharge Patient Orders: ascorbic acid, 1 tabs, Oral, q8hr, # 270 tabs, 0 Refill(s), Pharmacy: [facility] #[id number] cephalexin, 500 mg, Oral, Cap, [id number] Times for 12 doses, First Dose: 08/24/22 12:00:00 EDT, Stop Date: 08/27/22 11:59:00 EDT, Dispense From Location: [id number], Prophylaxis- Pre/Post-Op, 08/24/22 7:40:00 EDT cephalexin, 1 caps, Oral, [id number] Times, X 3 days, # 12 caps, 0 Refill(s), 08/27/22 7:47:00 EDT, Pharmacy: [facility] #[id number] docusate, 1 caps, Oral, BID, # 14 caps, 0 Refill(s), Pharmacy: [facility] #[id number] ferrous sulfate, 1 tabs, Oral, BID, # 60 tabs, 0 Refill(s), Pharmacy: [facility] #[id number] magnesium hydroxide, 15 mL, Ora (more content not included)... [facility] 07-03-2022 Note No concerning symptoms [facility] 07-03-2022 Note Hypertension is well controlled 120/84 Reviewed b/p log and overall her b/p is controlled with some outliers of high and low b/p. Renal function was normal s/p starting lisinopril [facility] 07-03-2022 Note Patient here for 1 m [...] All other systems reviewed and are negative. [facility] 07-03-2022 Note [facility] CARDIOLOGY PROGR ESS NOTE [...] effusion No concerning symptoms RTC 6 months [facility] 06-10-2022 Note F/U with PCP [facility] 06-10-2022 Note Hypertension is 145/ 99 uncontrolled Will start lisinopril 2.5 mg daily BMP in 1 week Start monitoring b/p at home and record on a log, RTC 1 month D/W pt about side effects of 1st dose low b/p and dry persistent cough [facility] 06-10-2022 Note Recent echo with not ed trivial effusion. No recent illness or any concerning symptoms [facility] 06-10-2022 Note [facility] CARDIOLOGY PROGR ESS NOTE HPI: Stephan López is a 62 y.o. female here for routine f/U for pericardial effusion. At the time, patient denied any cardiac complaints. She denied any chest pain or shortness of breath. She denies any cardiac history. No history of ID, PCI, CHF. Repeat echocardiogram demonstrated a trivial [...] with PCP RTC 1 month for re-evaluation [facility] 06-10-2022 Note Patient here for 6 m o follow up pericardial effusion. Had echo in April 2022. Denies chest pain and SOB. Review of Systems Musculoskeletal: Positive for back pain. All other systems reviewed and are negative. [facility] Evaluation note Diagnosis COPD with exacerbation (CMS/HCC)- Primary documented in this encounter [facility] Summary Purpose Family History No Family History Records FoundNo Family History Records FoundNo Family History Records FoundNo Family History Records Found Advance Directives No Advanced Directives Records FoundNo Advanced Directives Records FoundNo Advanced Directives Records FoundNo Advanced Directives Records Found Additional Source Comments INFORMATION SOURCE (unrecogn ized section and content) DATE CREATED AUTHOR 06/21/2022 [facility] DATE CREATED AUTHOR AUTHOR'S ORGANIZ ATION 01/26/2023 [facility] EPIC DATE CREATED AUTHOR AUTHOR'S ORGANIZ ATION 03/20/2023 [facility] DATE CREATED AUTHOR AUTHOR'S ORGANIZ ATION 04/07/2023 [facility] Care Teams (unrecognized sec tion and content) Wheel Press Operator Relationship Specialty Start Date End Date Jim Deleon MD [address] [place] [address] PCP - General Family Medicine 09/18/22 [place] [address] Referring Physician Nurse Practitioner 09/18/22 FOR RECORDS PERTAINING TO PATIENTS WHO ARE [...] BE BASED ON THE PRIMARY CLINICAL RECORDS. [facility]. provides no warranty or guarantee of the accuracy or completeness of information in this document.
[2023-04-08 14:49] LABS: Influenza Virus A Antigen Positive; Influenza Virus B Antigen Negative; Internal Control Within Normal Limits
[2023-04-09 15:43] LABS: SARS-CoV-2 NAA INCONCLUSIVE (NOT DETECTE)
== END 2023-04-08 10:50 | disposition home or self-care (01) ==
LOC: LAB 10:49
PROVIDERS: PCP Nurse Practitioner; Visit Provider Nurse Practitioner
DX: Z20.822 Contact with and (suspected) exposure to COVID-19 (principal); Z11.8 Encounter for screening for other infectious and parasitic diseases
CPT/HCPCS: 87635; 87804

== ENCOUNTER 2023-04-15 09:53 | Outpatient (OUT) | payer OTHER, SELFPAY ==
--- NOTE | 2023-04-15 10:09 | P.CN_ITS ---
Consult Note: HPI Data of Consult Patient: known to practice within the last 3 years Requesting Physician: Gwendolyn Salamanca NP Primary Care Provider: Gayla Martinez NP Consult Narrative Reason for consult: f/u Narrative: Stephan muniz pleasant 62 year old female presents for evaluation and management of chronic back pain. Today pain 7/10 in right low back, feels like a deep ache. Patient has a hx of L3,4,5 fusion. Patient utilizing external bone stimulator. Patient has found mild benefit to current medication regimen, no side effects. Patient continues to have moderate to severe pain that is severely impacting functional ability, DIONNA 64%. Patient has completed aquatherapy without improvement. cc:: CC: Gwendolyn Salamanca NP Review of Systems ROS Status of ROS 10 or more systems reviewed and unremark able except as noted in history and below Musculoskeletal Reports: back pain Meds Home Medications and Allergies Home Medications Medication Instructions Recorded Confirmed Type amitriptyline 10 mg tablet 10 mg PO DAILY 11/23/22 01/21/23 History atorvastatin 20 mg tablet 20 mg PO DAILY 11/23/22 11/23/22 History ferrous sulfate 325 mg (65 mg 325 mg PO DAILY 11/23/22 11/23/22 History iron) tablet (FeroSul) fluticasone fur. 100 mcg-umeclid 1 inh inhalation DAILY 11/23/22 11/23/22 History 62.5 mcg-vilant 25 mcg inhalat.powder (Trelegy Ellipta) lisinopril 2.5 mg tablet 2.5 mg PO DAILY 11/23/22 11/23/22 History metformin 500 mg tablet 500 mg PO BID 11/23/22 11/23/22 History tizanidine 4 mg capsule 4 mg PO BID PRN muscle spasticity 11/23/22 01/21/23 History tramadol 50 mg tablet 50 mg PO Q12H 01/21/23 01/21/23 History tramadol 50 mg tablet 50 mg PO BID PRN pain #60 tabs 03/10/23 Rx Allergies Allergy/AdvReac Type Severity Reaction Status Date / Time No Known Drug Allergies Allergy Verified 11/23/22 14:05 Exam Constitutional Documenting provider has reviewed patient's vital signs: yes Common normals: no apparent distress, oriented x3, healthy appearing, alert and well nourished General appearance: cooperative HENMT Common normals: normocephalic, hearing grossly normal bilaterally and moist oral mucous membranes Head and scalp: normocephalic Eye Common normals: PERRL Pupil: PERRL Neck & C-Spine Common normals: full ROM General: normal visual inspection Chest Common normals: inspection of chest normal Respiratory Common normals: normal respiratory effort, no retractions and no use of accessory muscles Back & Pelvis Lumbar spine/lower back: ROM limited, pain with ROM and straight leg raise negative bilaterally Other: facet loading bilateral intermittent NC Extremity Common normals: normal to inspection and full ROM Neuro Common normals: oriented x3, CN's II-XII intact bilaterally, moves all extremities, no focal motor deficits, no sensory deficits noted and deep tendon reflexes 2+ bilaterally Sensorium/orientation: alert Gait (neuro): antalgic and assistive device used cane Motor exam: strength 5/5 throughout and no movement abnormalities noted Psych Common normals: mental status grossly normal, thought process normal, cooperative, affect normal, speech normal and activity/motor behavior normal Speech: normal speech Thought process: normal thought process Results Additional Findings Additional findings: I have checked an OARRS report on this patient today and there are no aberrancies noted in the prescribing history.?? A drug screen was completed and reviewed within the last year, and if there has not been a drug screen completed we ordered one today to monitor higher risk, state monitored pain medication use. As part of providing excellent, safe, comprehensive care, the following was completed at our patient's visit: 1. A medication reconciliation and review to ensure accurate knowledge of current/active medications, including asking our patients to inform us about any yffz-oha-wzicfgh medications or herbal remedies/nutritional supplements/alternat mylene remedies. 2. A review to specifically ensure our patients have had annual screening for: elevated body mass index (BMI), tobacco use, screening for depression, and screening for unhealthy alcohol use. When screening is concerning, patients are provided with education and the specific recommendation to discuss the concerning health issue and treatment options with their primary care provider. Assessment and Plan Assessment and Plan (1) Chronic prescription opiate use: (2) Lumbar spondylosis: (3) Lumbar stenosis with neurogenic claudication: (4) Muscle spasm: (5) Lumbar radiculopathy: Plan -bilateral L5-S1 TFESI under fluoroscopy, risks vs benefits discussed. -continue current medications -continue f/u with orthopedic surgeon -f/u 2 weeks after SVITLANA
== END 2023-04-15 09:54 | disposition home or self-care (01) ==
LOC: PM 09:54
PROVIDERS: PCP Nurse Practitioner; Visit Provider Nurse Practitioner
DX: Z79.891 Long term (current) use of opiate analgesic (principal); M47.816 Spondylosis without myelopathy or radiculopathy, lumbar region; M48.062 Spinal stenosis, lumbar region with neurogenic claudication; M62.838 Other muscle spasm; M54.16 Radiculopathy, lumbar region
CPT/HCPCS: G0463

== ENCOUNTER 2023-04-30 14:48 | Outpatient (OUT) | payer OTHER, SELFPAY ==
--- NOTE | 2023-04-30 15:07 | XR_ITS ---
The [address] [address] Patient Name: SHELLEY VAUGHN MRN: [id number] date: 1960 Sex: F Assigned Patient Location: [facility] Current Patient Location: Accession/Order Number: [id number] Exam Date: 04/30/2023 15:00 Report Date: 05/01/2023 08:24 At the request of: ERINN CURIEL Procedure: XR lumbar spine 2-3V EXAMINATION: XR lumbar spine 2-3V HISTORY: Status post lumbar fusion COMPARISON: XR spine lumbosacral intraoperative images 08/21/2022 FINDINGS: BONES: Mechanical fusion L3-L4-5 via bilateral pedicle screws and rods; no appreciable hardware fracture or loosening. Grade 1 retrolisthesis of L2 on 3 and; no change in alignment during flexion and extension. Grade 1 anterior listhesis of L4 on 5 without appreciable change during flexion and extension. DISC SPACES: Intervertebral disc spacer at L4-L5. Mild/moderate narrowing L2-L3. Moderate-marked narrowing L5-S1. PARASPINOUS: Negative. No paraspinous abnormality is seen. OTHER: Negative. XR/XR lumbar spine 2-3V IMPRESSION: 1. Mechanical fusion of lower lumbar spine without evidence of hardware failure or change in alignment compared to intraoperative images. 2. Grade 1 listhesis of L2 on 3 and L4-L5 without appreciable change between neutral, flexion, extension. Electronically authenticated by: DIVYA ALVES Date: 05/01/2023 08:24
--- OUTSIDE RECORDS SUMMARY | 2023-04-30 15:08 | XMS_ITS | CCD ---
Author Name Unknown Address [address] [place] [address] Organization [facility] Care Team Providers Care Mix Mill Tender Name Role Phone ALGHOTHANI, MOHAMAD Attending Unavailable AICHHOLZ, ORDER PROCESSOR GAYLA Primary Care Unavailable ALGHOTHANI, MOHAMAD Consulting Unavailable ALGHOTHANI, MOHAMAD Admitting Unavailable AICHHOLZ, ORDER PROCESSOR GAYLA Primary Care Unavailable AICHHOLZ, ORDER PROCESSOR GAYLA Admitting Unavailable AICHHOLZ, ORDER PROCESSOR GAYLA Attending Unavailable AICHHOLZ, ORDER PROCESSOR GAYLA Consulting Unavailable ALGHOTHANI, MOHAMAD Attending Unavailable AICHHOLZ, ORDER PROCESSOR GAYLA Primary Care Unavailable ALGHOTHANI, MOHAMAD Consulting Unavailable ALGHOTHANI, MOHAMAD Admitting Unavailable ALGHOTHANI, MOHAMAD Attending Unavailable AICHHOLZ, ORDER PROCESSOR GAYLA Primary Care Unavailable ALGHOTHANI, MOHAMAD Consulting Unavailable ALGHOTHANI, MOHAMAD Admitting Unavailable ALEX, INA Attending Unavailable ALEX, INA Admitting Unavailable ALEX, INA Consulting Unavailable AICHHOLZ, ORDER PROCESSOR GAYLA Primary Care Unavailable AICHHOLZ, ORDER PROCESSOR GAYLA Admitting Unavailable AICHHOLZ, ORDER PROCESSOR GAYLA Attending Unavailable AICHHOLZ, ORDER PROCESSOR GAYLA Consulting Unavailable AICHHOLZ, ORDER PROCESSOR GAYLA Primary Care Unavailable AICHHOLZ, ORDER PROCESSOR GAYLA Admitting Unavailable AICHHOLZ, ORDER PROCESSOR GAYLA Attending Unavailable AICHHOLZ, ORDER PROCESSOR GAYLA Consulting Unavailable AICHHOLZ, ORDER PROCESSOR GAYLA Primary Care Unavailable ALEX, INA Attending Unavailable ALEX, INA Attending Unavailable DANTE HAND Attending Unavailable Aichholz TRAINING MGR, Gayla Unavailable Pancho BOWIE, Jim Primary Care Provider [phone] Tylor KAMARA MD, Delfino Freeman Attending U [...] Snider III, MD, Delfino Freeman Attending U GAYLA Price Attending GAYLA Pastor Attending Unavailable Allergies Allergy Classification Reported Allergen(s) Allergy Type Date of Onset Reaction(s) Facility (3 sources) pregabalin; Translations: [PREGABALIN] Drug Allergy 3 [facility] Repository (1 source) No Known Medication Allergies; Translations: [No Known Medication Allergies] Propensity to adverse reactions to drug (disorder) [facility] Repository Medications Current Medications Medication Drug Class(es) Dates Sig (Normalized) Sig (Original) amitriptyline hydrochloride 25 mg oral tablet (2 sources) Tricyclic Antidepressant Start: 02-08-2023 amitriptyline (Elavil) 25 MG tablet Indications: Other chronic pain , Other insomnia At bedtime 30 tablet 2 02/08/2023 Active ascorbic acid 1000 mg oral tablet (2 sources) Vitamin C take 1 tablet by mouth in the morning Ascorbic Acid (vitamin C) 1000 MG tablet Take 1 tablet by mouth in the morning. 0 Active atorvastatin 20 mg oral tablet (2 sources) HMG-CoA Reductase Inhibitor Start: 03-23-2023 End: 06-21-2023 take 1 tablet by mouth in the morning atorvastatin (Lipitor) 20 MG tablet Indications: Mixed hyperlipidemia (CMS/HCC) Take 1 tablet (20 mg) by mouth in the morning. 90 tablet 1 03/23/2023 06/21/2023 Active azithromycin 250 mg oral tablet (2 sources) Macrolide Antimicrobial Start: 04-07-2023 azithromycin (Zithromax) 250 MG tablet Indications: COPD with exacerbation (CMS/HCC) 2 pills day #1, 1 pill day #2-#5 6 tablet 0 04/07/2023 Active Blood Glucose Monitoring Suppl (Pip Blood Glucose Monitoring) device (2 sources) Blood Glucose Monitoring Suppl (Pip Blood Glucose Monitoring) device 1 Device Daily as needed. 0 Active brompheniramine maleate 0.4 mg/ml / dextromethorphan hydrobromide 2 mg/ml / pseudoephedrine hydrochloride 6 mg/ml oral solution (2 sources) alpha-Adrenergic Agonist, Uncompetitive F-tghjff-O-aspartat e Receptor Antagonist, Sigma-1 Agonist Start: 04-07-2023 [...] sulfate 325 mg delayed release oral tablet (2 sources) take 1 tablet by mouth in the morning ferrous sulfate 325 (65 Fe) MG EC tablet Take 1 tablet by mouth in the morning and 1 tablet before bedtime. Do not crush, chew, or split. . 0 Active 30 actuat fluticasone furoate 0.1 mg/actuat / umeclidinium 0.0625 mg/actuat / vilanterol 0.025 mg/actuat dry powder inhaler (2 sources) Anticholinergic, Corticosteroid, beta2-Adrenergic Agonist take 1 dose by inhalation once daily Fluticasone-Umecli din-Vilant (Trelegy Ellipta) 100-62.5-25 MCG/ACT aerosol powder Inhale 1 Dose 1 (one) time each day. 0 Active lisinopril 5 mg oral tablet (2 sources) Angiotensin Converting Enzyme Inhibitor Start: 01-19-2023 End: 01-19-2024 take 1 tablet by mouth in the morning lisinopril 5 MG tablet Take 5 mg by mouth in the morning. 0 01/19/2023 01/19/2024 Active meloxicam 15 mg oral tablet (2 sources) Nonsteroidal Anti-inflammatory Drug Start: 03-23-2023 End: 06-21-2023 take 1 tablet by mouth in the morning meloxicam (Mobic) 15 MG tablet Indications: Other chronic pain Take 1 tablet (15 mg) by mouth in the morning. 90 tablet 1 03/23/2023 06/21/2023 Active metFORMIN hydrochloride 500 mg oral tablet (2 sources) Biguanide Start: 01-25-2023 End: 04-25-2023 take 1 tablet by mouth at mealtime metFORMIN (Glucophage) 500 MG tablet Indications: Controlled type 2 diabetes mellitus without complication, without long-term current use of insulin (CMS/HCC) Take 1 tablet (500 mg) by mouth in the morning. Take with meals. 90 tablet 1 01/25/2023 04/25/2023 Active Multiple Vitamins-Minerals (CENTRUM ADULT PO) (2 sources) take 1 tablet by mouth once daily Multiple Vitamins-Minerals (CENTRUM ADULT PO) Take 1 tablet by mouth 1 (one) time each day. 0 Active omeprazole 40 mg delayed release oral capsule (2 sources) Proton Pump Inhibitor Start: 03-16-2023 End: 04-15-2023 take 1 capsule by mouth in the morning omeprazole (PriLOSEC) [address] capsule Indications: Munoz's esophagus with esophagitis Take 1 capsule (40 mg) by mouth in the morning. 30 capsule 2 03/16/2023 04/15/2023 Active tiZANidine 4 mg oral tablet (2 sources) Central alpha-2 Adrenergic Agonist take 1 tablet by mouth once tiZANidine (Zanaflex) 4 MG tablet Take 1 tablet by mouth every 12 (twelve) hours if needed for muscle spasms. 0 Active Problems Active Problems Problem Classification Problem Date Documented Date Episodic/Chronic Chronic obstructive pulmonary disease and bronchiectasis (5 sources) Acute exacerbation of chronic obstructive airways disease; Translations: [Chronic obstructive pulmonary disease with (acute) exacerbation] Onset: 01-25-2023 04-07-2023 Chronic Diabetes mellitus without complication (8 sources) Type 2 diabetes mellitus without complications; Translations: [Other specified diabetes mellitus without complications] Onset: 09-11-2011 Chronic Disorders of lipid metabolism (2 sources) Hyperlipidemia; Translations: [Hyperlipidemia, unspecified] Onset: 03-16-2023 03-16-2023 Chronic Esophageal disorders (2 sources) Munoz's esophagus with esophagitis; Translations: [Munoz's esophagus without dysplasia] Onset: 03-16-2023 03-16-2023 Chronic Essential hypertension (6 sources) Essential (primary) hypertension; Translations: [ESSENTIAL PRIMARY HYPERTENSION] Onset: 06-10-2022 Chronic Other nervous system disorders (2 sources) Chronic pain; Translations: [Other chronic pain] Onset: 02-08-2023 02-08-2023 Chronic Pleurisy; pneumothorax; pulmonary collapse (4 sources) Pleural effusion, not elsewhere classified; Translations: [PLEURAL EFFUSION NEC] Onset: 05-08-2022 Episodic Residual codes; unclassified (2 sources) Insomnia; Translations: [Other insomnia] Onset: 02-08-2023 02-08-2023 Chronic Spondylosis; intervertebral disc disorders; other back problems (2 sources) Degeneration of lumbar intervertebral disc; Translations: [Other intervertebral disc degeneration, lumbar region] Onset: 01-25-2023 01-25-2023 Chronic Substance-related disorders (2 sources) Tobacco dependence syndrome; Translations: [Nicotine dependence, unspecified, [...] claudication] Onset: 08-21-2022 Episodic Unclassified (1 source) OT PERICARDIAL EFFUSION NONINFLAMM; Translations: [OTH PERICARDIAL EFFUSION NONINFLAMM] Onset: 01-05-2022 Unclassified (1 source) Other pericardial effusion (noninflammatory); Translations: [Other pericardial effusion (noninflammatory)] Onset: 07-03-2022 Results Test Name Value Interpretation Reference Range Facility [facility] INFLUENZA A AND B AGon 0 04-08-2023 INFLUENZA VIRUS A ANTIGEN Positive Abnormal [facility] Comment on above: NOTE: Live attenuate d influenza vaccine viruses can cause a positive result for a rapid influenza diagnostic test if administered up to 7 days prior to rapid testing. INFLUENZA VIRUS B ANTIGEN Negative [facility] Comment on above: Negative for Flu B p rotein antigen. Infection due to Flu B cannot be ruled out. Flu B antigen in the sample may be below the detection limit of the test. Interpretation and review of laboratory results Abnormal [facility] 36on 03-19-2023 36 Please let her know her labs showed normal kidney function. Can continue lisinopril. Thank you Normal [facility] Telephoneon 03-19-2023 Telephone [id number] James López 1960 F Date Provider Department Center 03/19/2023 DANTE BAIG [facility] Family History Problem Relation Age of Onset Other Mother Heart attack Father Other Father Other Father Other Maternal Grandmother Family Status - Relation Status Age at Mother Father Maternal Grandmother Normal [facility] Neurosurgery Office/Clinic N oteon 02-08-2023 Neurosurgery Office/Clinic [...] and tizanidine as provided by pain management ([facility] pain management) only as needed and has not yet returned to NSAID medication. She continues to utilize nicotine and understands the deleterious effects of nicotine on her overall health and bony arthrodesis. Recent imaging (provider interpretation): CT lumbar spine 02/03/2023 at [facility] reveals evidence of L3-5 posterior spinal fusion [...] prior imaging. CT lumbar spine 10/14/2022 at [facility] reveals evidence of L3-5 decompression and posterior [...] bladder inc (more content not included)... Normal [facility] Office Visiton 01-19-2023 Follow-up visit [id number] James López 1960 F Date Provider Department Center 01/19/2023 166-DANTE HAND Family History Problem Relation Age of Onset Other Mother Heart attack Father Other Father Other Father Other Maternal Grandmother Family Status - Relation Status Age at Mother Father Maternal Grandmother Level of Service:36355 [place] OFFICE/OUTPATIENT ESTABLISHED LOW MDM 20-29 MIN Reason for Visit and Comments: Follow-up [557350] Hypertension [757065] Normal [facility] Neurosurgery Office/Clinic N zain 12-22-2022 Neurosurgery Office/Clinic Note Chief Complaint back [...] 2 times per week. She follows with [facility] pain management which is a transition from [facility] pain management group. She continues to [...] prior imaging. CT lumbar spine 10/14/2022 at [facility] reveals evidence of L3-5 decompression and posterior [...] demonstrates normal respiratory effort She presents in O cinch lock brace with proper fit and alignment. This was removed at the time of today's visit for incision evaluation. Lumbosacral incision appears well-healed and without erythema, edema, drainage or warmth. She notes mild tenderness (more content not included)... Normal [facility] Neurosurgery Office/Clinic N zain 11-26-2022 Neurosurgery Office/Clinic Note Chief Complaint Back [...] she recently transferred pain management care from [facility] to [facility]. Per the patient, they eventually would like her to initiate hot water physical therapy though only after receiving clearance from this office. Recent imaging (provider interpretation): CT lumbar spine 10/14/2022 at [facility] reveals evidence of L3-5 decompression and posterior [...] demonstrates normal respiratory effort She presents in [facility] brace with proper fit and alignment. [...] lower extre (more content not included)... Normal [facility] Neurosurgery Office/Clinic N zain 10-15-2022 Neurosurgery Office/Clinic [...] and posterior spinal fusion with instrumentation utilizing Qapatronic Osteogrip screws, interbody arthrodesis L4-5 using TLIF [...] (provider interpretation): CT lumbar spine 10/14/2022 at [facility] reveals evidence of L3-5 decompression and posterior [...] Lumbar w/o (more content not included)... Normal [facility] Provider Letteron 10-15-2022 Provider Letter [facility] [address], [id number] Date: 10/15/2022 17:05:57 To Whom It May Concern: This is to verify that Rene Stephan Ceballos was under our care on 10/15/2022 16:00:00. Stated patient underwent an L3-5 posterior spinal fusion on 08/21/22 with instrumentation utilizing Medtronic osteogrip titanium screws. If you have any questions or concerns please call our office at [phone]. 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 [...] and manner are appropriate. She presents in [facility] brace which was removed at the time [...] No redness (more content not included)... Normal [facility] Inpatient Clinical Summaryon 08-24-2022 Inpatient Clinical Summary [address] [address] Clinical Summary Person Information Name: Stephan López Age: 62 Years : 1960 Sex: Female PCP: Marital Status: Phone: PCP: Race: White Ethnicity: Not or Language: Congolese Visit Id: Visit Reason: Speciality: Acuity: Enc Type: Inpatient Med Service: Surgery Arrival: 08/21/2022 06:28:12 Discharge: Dispo Type: Address: Mar [facility] [id number] Diagnosis: 1:Lumbar stenosis with neurogenic claudication; 2:Spondylolisthesis, [...] range between ( 27.2 and 40.8 ) Pratt Auto: 8.9 % -- Normal range between [...] range between ( 36.0 and 46.0 ) Pratt Absolute: 1.8 x10 MCH: 31.8 pg -- [...] [facility] New Medications [id number], [address] [place], [place] [id number], [phone] ascorbic acid (ascorbic acid 500 mg oral [...] magnesium hydroxi (more content not included)... Normal [facility] Neurosurgery Progress Noteon 08-24-2022 Neurosurgery Progress Note [...] Date: 08/27/22 7:59:00 EDT, Dispense From Location: [id number], Prophylaxis- Pre/Post-Op, 08/24/22 7:40:00 EDT scopolamine, 1 patches, TD, Film-ER, q72hr, First Dose: 08/24/22 7:40:00 EDT, Dispense From Location: [facility], 08/24/22 7:40:00 EDT traMADol, 100 mg, Oral, Tab, q4hr, PRN severe pain [7-10 on pain scale], First Dose: 08/23/22 9:04:00 EDT, Dispense From Location: [address], 08/23/22 9:04:00 EDT traMADol, 50 mg, Oral, Tab, q4hr, PRN moderate pain [4-6 on pain scale], First Dose: 08/23/22 9:04:00 EDT, Dispense From Location: [address], 08/23/22 9:04:00 EDT Surgical Drains Subjective: [...] MD, Delfino Freeman 08/24/22 07:45 EDT Normal [facility] Neurosurgery Progress Noteon 08-23-2022 Neurosurgery Progress Note [...] Dose: 08/23/22 9:04:00 EDT, Dispense From Location: [address], 08/23/22 9:04:00 EDT traMADol, 50 mg, Oral, Tab, q4hr, PRN moderate pain [4-6 on pain scale], First Dose: 08/23/22 9:04:00 EDT, Dispense From Location: [address], 08/23/22 9:04:00 EDT Surgical Drains Subjective: [...] and canes at home Electronically signed by Tylor KAMARA MD, Delfino Pete 08/23/22 09:14 EDT Normal [facility] POC Glucose Randomon 023 Glucose [Mass/Vol] 114 mg/dL High 70-[address] [facility] Comment on above: Performed By: #### C D:[id number] ####[facility] [place] [address] Glucose [Mass/Vol] 114 mg/dL High 70-[address] [facility] Comment on above: Performed By: #### C D:[id number] #### [facility] [address] [place] [address] .eGFRon 08-22-2022 GFR/1.73 sq M.predicted MDRD (S/P/Bld) [Vol rate/Area] mL/min/{1.73_m2} Normal >=60 [facility] Comment on above: Result Comment: [facility] have implemented the eGFR calculation [...] = years Performed By: #### E GFR ####[facility] [place] [address] Basic Metabolic Profileon Anion gap [Moles/Vol] 12 mmol/L Normal 7-17 [facility] Comment on above: Performed By: #### C D:[id number] #### [facility] [address] [place] [address] Calcium [Mass/Vol] 8.5 mg/dL Normal 8.5-10.[address] [facility] Comment on above: Performed By: #### C D:[id number] #### [address] [place] [address] Chloride [Moles/Vol] 101 mmol/L Normal 98-110 [facility] Comment on above: Performed By: #### C D:[id number] #### [address] [place] [address] CO2 [Moles/Vol] 25 mmol/L Normal 22-32 [facility] Comment on above: Performed By: #### C [id number] #### [address] [address] Creatinine [Mass/Vol] 0.76 mg/dL Normal 0.44-1.03 [facility] Comment on above: Performed By: #### C D:[id number] #### [address] [address] Glucose [Mass/Vol] 116 mg/dL High 70-[address] [facility] Comment on above: Performed By: #### C D:[id number] #### [address] [address] Potassium [Moles/Vol] 4.2 mmol/L Normal 3.4-4.8 [facility] Comment on above: Performed By: #### C D:[id number] #### [address] [address] Sodium [Moles/Vol] 134 mmol/L Normal 133-[address] [facility] Comment on above: Performed By: #### C D:[id number] #### [address] [address] Urea nitrogen [Mass/Vol] 10 mg/dL Normal 8-26 [facility] Comment on above: Performed By: #### C D:[id number] #### [address] [address] Urea nitrogen/Creatinine [Mass ratio] 13.2 mg/mg Normal 10.0-20.0 [facility] Comment on above: Performed By: #### C D:[id number] #### [address] [address] CBC w/ Diffon 08-22-2022 Erythrocyte distribution width (RBC) [Ratio] 13.5 % Normal 11.6-14.8 [facility] Comment on above: Performed By: #### C BC ####[address] [address] Hematocrit (Bld) [Volume fraction] 36.3 % Normal 36.0-46.0 [facility] Comment on above: Performed By: #### C BC ####[address] [address] Hemoglobin (Bld) [Mass/Vol] 12.2 g/dL Normal 12.0-16.0 [facility] Comment on above: Performed By: #### C BC ####[address] [address] MCH (RBC) [Entitic mass] 31.8 pg Normal 27.0-35.0 [facility] Comment on above: Performed By: #### C BC ####[address] [address] MCHC 33.5 % Normal 31.0-37.0 [facility] Comment on above: Performed By: #### C BC ####[address] [address] MCV (RBC) [Entitic vol] 94.9 fL Normal 80.0-100.0 [facility] Comment on above: Performed By: #### C BC ####[address] [address] Platelet 282 x10*3/mcL Normal 150-450 [facility] Comment on above: Performed By: #### C BC ####[address] [address] Platelet mean volume (Bld) [Entitic vol] 9.0 fL Normal 6.7-10.6 [facility] Comment on above: Performed By: #### C BC ####[address] [address] RBC 3.82 x10*6/mcL Normal 3.80-5.20 [facility] Comment on above: Performed By: #### C BC ####[address] [address] WBC 20.4 x10*3/mcL High 4.5-11.0 [facility] Comment on above: Performed By: #### C BC ####[address] [place] [address] Diff Autoon 08-22-2022 Baso Absolute 0.1 x10*3/mcL Normal 0.0-0.2 [facility] Comment on above: Performed By: #### C [id number] #### [address] [address] Basophils/100 WBC (Bld) 0.4 % Normal 0.0-1.5 [facility] Comment on above: Performed By: #### C D:[id number] #### [address] [address] Eos Absolute 0.0 x10*3/mcL Normal 0.0-0.4 [facility] Comment on above: Performed By: #### C [id number] #### [address] [address] Eosinophils/100 WBC (Bld) 0.1 % Normal 0.0-5.4 [facility] Comment on above: Performed By: #### C D:[id number] #### [address] [address] Lymph Absolute 2.4 x10*3/mcL Normal 1.0-4.8 [facility] Comment on above: Performed By: #### C [id number] #### [address] [address] Lymphocytes/100 WBC (Bld) 11.6 % Low 27.2-40.8 [facility] Comment on above: Performed By: #### C D:[id number] #### [address] [address] Pratt Absolute 1.8 x10*3/mcL High 0.1-1.1 [facility] Comment on above: Performed By: #### C D:[id number] #### [address] [address] Monocytes/100 WBC (Bld) 8.9 % Normal 3.7-11.9 [facility] Comment on above: Performed By: #### C D:[id number] #### [facility] [address] [place] [address] Neutro Absolute 16.1 x10*3/mcL High 1.8-7.7 [facility] Comment on above: Performed By: #### C D:[id number] #### [facility] [address] [place] [address] Neutro Auto 79.0 % High 47.2-70.8 [facility] Comment on above: Performed By: #### C D:[id number] #### [address] [place] [address] Neurosurgery Progress Noteon 08-22-2022 Neurosurgery Progress Note [...] mg, Oral, qAM baclofen, 5 mg, Oral, [id number] Times bisacodyl, 10 mg= 1 supp, Rectal, [...] Dose: 08/21/22 17:00:00 EDT, Dispense From Location: [address], 08/21/22 16:37:00 EDT baclofen, 5 mg, Oral, Tab, [id number] Times, First Dose: 08/21/22 22:00:00 EDT, Dispense From Location: [address], 08/21/22 16:37:00 EDT bisacodyl, 10 mg, Rectal, Supp, Once, First Dose: 08/22/22 6:59:00 EDT, Stop Date: 08/22/22 6:59:00 EDT, Dispense From Location: [address], 08/22/22 6:59:00 EDT bisacodyl, 10 mg, Rectal, Supp, Daily, PRN constipation, First Dose: 08/22/22 9:00:00 EDT, Dispense From Location: [address], 08/22/22 9:00:00 EDT ceFAZolin, 2 g, IV Piggyback, Soln-IV, q8hr, infuse over 30 minutes, First Dose: 08/21/22 20:00:00 EDT, Dispense From Location: [address], Prophylaxis- Pre/Post-Op, 08/21/22 20:00:00 EDT docusate, 100 mg, Oral, Cap, BID, First Dose: 08/21/22 21:00:00 EDT, Dispense From Location: [address], 08/21/22 16:37:00 EDT ferrous sulfate, 325 mg, Oral, Tab, BID, First Dose: 08/21/22 21:00:00 EDT, Dispense From Location: [address], 08/21/22 16:37:00 EDT hydrALAZINE, 10 mg, IV Push, Injection, q10min, PRN hypertension, First Dose: 08/21/22 16:37:00 EDT, Dispense From Location: [address], 08/21/22 16:37:00 EDT labetalol, 10 mg, IV Push, Injection, q10min, PRN hypertension, First Dose: 08/21/22 16:37:00 EDT, Dispense From Location: [address], 08/21/22 16:37:00 EDT magnesium hydroxide, 30 mL, Oral, Susp, TID, First Dose: 08/21/22 22:00:00 EDT, Dispense From Location: [address], 08/21/22 16:37:00 EDT multivitamin with minerals, 1 tabs, Oral, Tab, Daily, First Dose: 08/22/22 9:00:00 EDT, Dispense From Location: [address], 08/21/22 16:37:00 EDT ondansetron, 4 mg, IV Push, Injection, q6hr, PRN nausea/vomiting, First Dose: 08/21/22 15:08:00 EDT, Dispense From Location: [facility], 08/21/22 15:08:00 EDT oxyCODONE-acetaminophe n, 1 tabs, Oral, Tab, q4hr, PRN moderate pain [4-6 on pain scale], First Dose: 08/21/22 16:37:00 EDT, Dispense From Location: [address], 08/21/22 16:37:00 EDT oxyCODONE-acetaminophe n, 2 tabs, Oral, Tab, q4hr, PRN severe pain [7-10 on pain scale], First Dose: 08/21/22 16:37:00 EDT, Dispense From Location: [address], 08/21/22 16:37:00 EDT sodium chloride, 10 mL, IV Push, Injection, As Indicated, PRN flush, First Dose: 08/21/22 16:37:00 EDT, Dispense From Location: [address], 08/21/22 16:37:00 EDT ADA Diet Ambulate Basic Metabolic Profile Blood Glucose Monitoring POC Cinch Loc Brace (EXOS Brace) Consult to Freight Separator Incentive Spirometry Nursing to Encourage Intake and Output Mechanical Compression Device Neurological Checks Notify Provider Occupational Therapy Evaluation and Treatment Inpatient Oxygen Therapy Peripheral IV Insert and Maintain Physical Therapy Evaluation and Treatment Inpatient Pulse Oximetry Continuous Pulse Oximetry Continuous Resuscitation Status Straight Catheter Straight (more content not included)... Normal [facility] POC Glucose Randomon 023 Glucose [Mass/Vol] 124 mg/dL High 70-[address] [facility] Comment on above: Performed By: #### C [id number] #### [facility] [address] [place] [address] Glucose [Mass/Vol] 120 mg/dL High 70-[address] [facility] Comment on above: Performed By: #### C [id number] ####[facility] [place] [address] Neurosurgery Progress Noteon 08-21-2022 Neurosurgery Progress Note [...] ceFAZolin, 2 g= 50 mL, IV Piggyback, Server Support Technician Dilaudid, 0.5 mg= 0.5 mL, IV Push, q15min, PRN diphenhydrAMINE, 25 mg= 0.5 mL, IV Push, q6hr, PRN fentaNYL, 50 mcg= 1 mL, IV Push, q5min, PRN fentaNYL CIRCUIT BOARD ASSEMBLER, 300 mcg= 30 mL, IV CIRCUIT BOARD ASSEMBLER, [id number] Times, PRN lisinopril, 2.5 mg, Oral, Daily [...] Dose: 08/21/22 9:00:00 EDT, Dispense From Location: [employer], 08/21/22 6:35:00 EDT ceFAZolin, 2 g, IV Piggyback, Soln-IV, Server Support Technician, infuse over 30 minutes, First Dose: 08/21/22 0:15:00 EDT, Dispense From Location: [facility], Prophylaxis- Pre/Post-Op, 08/21/22 0:15:00 EDT diphenhydrAMINE, 25 mg, IV Push, Injection, q6hr, PRN itching, First Dose: 08/21/22 15:08:00 EDT, Dispense From Location: [facility], 08/21/22 15:08:00 EDT fentaNYL, 300 30 mcg mL, IV CIRCUIT BOARD ASSEMBLER, Loading Dose (mcg): 25, CIRCUIT BOARD ASSEMBLER Dose (mcg): 10, Lockout Interval (min): 8, Continuous Dose (mcg/hr): 25, 4-Hour Limit (mcg): 300, 2.5 mL/hr, pain PRN, Start Date: 08/21/22 15:08:00 EDT, Dispense From Location: [facility], 07/25... lisinopril, 2.5 mg, Oral, Tab, Daily, First Dose: 08/21/22 9:00:00 EDT, Dispense From Location: [facility], 08/21/22 6:35:00 EDT metFORMIN, 500 mg, Oral, Tab, BID, First Dose: 08/21/22 9:00:00 EDT, Dispense From Location: [facility], 08/21/22 6:35:00 EDT nalbuphine, 2.5 mg, IV Push, Injection, q6hr, PRN refractory itching, First Dose: 08/21/22 15:08:00 EDT, Dispense From Location: [facility], 08/21/22 15:08:00 EDT omeprazole, 40 mg, Oral, Cap-DR, Daily, First Dose: 08/21/22 7:00:00 EDT, Dispense From Location: [facility], 08/21/22 6:35:00 EDT ondansetron, 4 mg, IV Push, Injection, q6hr, PRN nausea/vomiting, First Dose: 08/21/22 15:08:00 EDT, Dispense From Location: [facility], 08/21/22 15:08:00 EDT pregabalin, 100 mg, Oral, Cap, BID, First Dose: 08/21/22 9:00:00 EDT, Dispense From Location: [facility], 08/21/22 6:35:00 EDT Admit to Inpatient Communication [...] Snider III, MD 08/21/22 15:45 EDT Normal [facility] Operative Reporton 3 Operative Report Indication for [...] with locally harvested autograft from laminectomy and Medtronic elevate expandable cage 8-12 mm; posterolateral arthrodesis L3-L4 and L5 bilaterally with locally harvested autograft and small kit infuse from [employer] due to chronic nicotine abuse; transpedicular fixation L3, L4, L5 bilaterally with Medtronic Osteogrip screws 6.5 mm in diameter; resection of juxta articular facet cyst left L4-5; computer-assisted hardware placement using [employer] and [employer] O-arm Surgeon(s) Delfino Snider III, MD (Surgeon - Primary) Information Architect Dasha Waggoner PA-C (Analytical Chemistry Teacher) Anesthesia General Maulik Joseph MD (Supervisor Filter Assembly) Koko Eugene (Provider) Estimated Blood Loss 300.0 [...] is secured. Patient is carefully turned onto [facility] operating room table and head and [...] spinous pro (more content not included)... Normal [facility] POC Glucose Randomon 023 Glucose [Mass/Vol] 152 mg/dL High 70-[address] [facility] Comment on above: Performed By: #### C [id number] #### [address] [address] Glucose [Mass/Vol] 206 mg/dL High 70-[address] [facility] Comment on above: Performed By: #### C D:[id number] #### [address] [address] Glucose [Mass/Vol] 179 mg/dL High 70-[address] [facility] Comment on above: Performed By: #### C D:[id number] ####[address] [address] XR Spine Lumbosacral 4 Views + in [...] for details. Possible hepatomegaly. Final Dictated by: Isabel BOWIE, Bernice Choi Dictated DT/TM: 08/21/2022 4:57 pm Signed by: Bernice Hall MD Signed (Electronic Signature): 08/21/2022 5:00 pm (If Report Is Signed, Electronically Signed in Other Vendor System) Normal [facility] Provider Letteron 08-11-2022 Provider Letter Gayla Martinez CNP [address] [place] [address] Re: Stephan López Date of Visit: 08/10/2022 Dear Gayla Martinez CNP, Let me know if you have any questions or concerns. Sincerely, Lin Cintron Providers: [CC Letter Providers Please see attached lab results The following document(s) were included in the letter: August 10, 2022 13:56:47 EDT - (08/10/2022) Reminder Message Normal [facility] .UA Microscp Aon 08-10-2022 UA Hyline Cast Qual 3-5 Normal Negative [facility] Comment on above: Performed By: #### C D:[id number] #### [address] [address] UA Mucus Present Abnormal Absent [facility] Comment on above: Performed By: #### C D:[id number] #### [address] [address] UA RBC Quant 0 /HPF Normal 0-5 [facility] Comment on above: Performed By: #### C D:[id number] #### [address] [address] UA Squepi Cells Quant 2 /HPF Normal 0-29 [facility] Comment on above: Performed By: #### C D:[id number] #### [address] [address] UA WBC Quant 0 /HPF Normal 0-5 [facility] Comment on above: Performed By: #### C D:[id number] #### [address] [address] .eGFRon 08-10-2022 GFR/1.73 sq M.predicted MDRD (S/P/Bld) [Vol rate/Area] mL/min/{1.73_m2} Normal >=60 [facility] Comment on above: Result Comment: [facility] have implemented the eGFR calculation [...] = years Performed By: #### E GFR ####[place] [id number] ABO/Rhon 08-10-2022 ABO/Rh ABO/Rh: O NEG Normal [facility] Comment on above: Performed By: #### A BORH ####[address] [address] ABSC Autoon 08-10-2022 ABSC Auto Negative Normal [facility] Comment on above: Performed By: #### A SA ####[address] [address] CBC w/ Diffon 08-10-2022 Erythrocyte distribution width (RBC) [Ratio] 13.3 % Normal 11.6-14.8 [facility] Comment on above: Performed By: #### C D:[id number] #### [address] [address] Hematocrit (Bld) [Volume fraction] 44.0 % Normal 36.0-46.0 [facility] Comment on above: Performed By: #### C D:[id number] #### [address] [address] Hemoglobin (Bld) [Mass/Vol] 15.0 g/dL Normal 12.0-16.0 [facility] Comment on above: Performed By: #### C D:[id number] #### [place] [id number] MCH (RBC) [Entitic mass] 32.6 pg Normal 27.0-35.0 [facility] Comment on above: Performed By: #### C D:[id number] #### [place] [id number] MCHC 34.0 % Normal 31.0-37.0 [facility] Comment on above: Performed By: #### C D:[id number] #### [place] [address] MCV (RBC) [Entitic vol] 95.8 fL Normal 80.0-100.0 [facility] Comment on above: Performed By: #### C D:[id number] #### [place] [id number] Platelet 298 x10*3/mcL Normal 150-350 [facility] Comment on above: Performed By: #### C D:[id number] #### [address] [address] Platelet mean volume (Bld) [Entitic vol] 10.1 fL Normal 6.7-10.6 [facility] Comment on above: Performed By: #### C D:[id number] #### [address] [address] RBC 4.59 x10*6/mcL Normal 3.80-5.20 [facility] Comment on above: Performed By: #### C D:[id number] #### [address] [address] WBC 12.9 x10*3/mcL High 4.5-11.0 [facility] Comment on above: Performed By: #### C D:[id number] #### [address] [address] CMPon 08-10-2022 Albumin [Mass/Vol] 4.4 g/dL Normal 3.2-4.[address] [facility] Comment on above: Performed By: #### C OMP ####[address] [address] Albumin/Globulin [Mass ratio] 1.4 {ratio} Normal 1.1-2.2 [facility] Comment on above: Performed By: #### C OMP ####[address] [address] Alk Phos 75 IU/L Normal 32-91 [facility] Comment on above: Performed By: #### C OMP ####[address] [address] ALT [Catalytic activity/Vol] 14 U/L Normal 14-54 [facility] Comment on above: Performed By: #### C OMP ####[address] [address] Anion gap [Moles/Vol] 13 mmol/L Normal 7-17 [facility] Comment on above: Performed By: #### C OMP ####[address] [address] AST [Catalytic activity/Vol] 20 U/L Normal 15-41 [facility] Comment on above: Performed By: #### C OMP ####[address] [address] Bili Total 0.6 mg/dL Normal 0.3-1.2 [facility] Comment on above: Performed By: #### C OMP ####[address] [address] Calcium [Mass/Vol] 9.3 mg/dL Normal 8.5-10.[address] [facility] Comment on above: Performed By: #### C OMP ####[address] [address] Chloride [Moles/Vol] 103 mmol/L Normal 98-110 [facility] Comment on above: Performed By: #### C OMP ####[address] [address] CO2 [Moles/Vol] 24 mmol/L Normal 22-32 [facility] Comment on above: Performed By: #### C OMP ####[address] [address] Creatinine [Mass/Vol] 0.85 mg/dL Normal 0.44-1.03 [facility] Comment on above: Performed By: #### C OMP ####[address] [address] Glucose [Mass/Vol] 108 mg/dL High 70-[address] [facility] Comment on above: Performed By: #### C OMP ####[address] [address] Potassium [Moles/Vol] 3.7 mmol/L Normal 3.4-4.8 [facility] Comment on above: Performed By: #### C OMP ####[address] [address] Protein [Mass/Vol] 7.5 g/dL Normal 6.5-8.[address] [facility] Comment on above: Performed By: #### C OMP ####[address] [address] Sodium [Moles/Vol] 136 mmol/L Normal 133-[address] [facility] Comment on above: Performed By: #### C OMP ####[address] [address] Urea nitrogen [Mass/Vol] 15 mg/dL Normal 8-26 [facility] Comment on above: Performed By: #### C OMP ####[address] [address] Urea nitrogen/Creatinine [Mass ratio] 17.6 mg/mg Normal 10.0-20.0 [facility] Comment on above: Performed By: #### C OMP ####[address] [address] Diff Autoon 08-10-2022 Baso Absolute 0.1 x10*3/mcL Normal 0.0-0.2 [facility] Comment on above: Performed By: #### . Automated Diff ####[address] [address] Basophils/100 WBC (Bld) 0.4 % Normal 0.0-1.5 [facility] Comment on above: Performed By: #### . Automated Diff ####[address] [address] Eos Absolute 0.1 x10*3/mcL Normal 0.0-0.4 [facility] Comment on above: Performed By: #### . Automated Diff ####[address] [address] Eosinophils/100 WBC (Bld) 0.9 % Normal 0.0-5.4 [facility] Comment on above: Performed By: #### . Automated Diff ####[address] [address] Lymph Absolute 3.8 x10*3/mcL Normal 1.0-4.8 [facility] Comment on above: Performed By: #### . Automated Diff ####[address] [address] Lymphocytes/100 WBC (Bld) 29.6 % Normal 27.2-40.8 [facility] Comment on above: Performed By: #### . Automated Diff ####[address] [address] Pratt Absolute 0.8 x10*3/mcL Normal 0.1-1.1 [facility] Comment on above: Performed By: #### . Automated Diff ####[address] [address] Monocytes/100 WBC (Bld) 5.9 % Normal 3.7-11.9 [facility] Comment on above: Performed By: #### . Automated Diff ####[address] [address] Neutro Absolute 8.1 x10*3/mcL High 1.8-7.[address] [facility] Comment on above: Performed By: #### . Automated Diff ####[address] [address] Neutro Auto 63.2 % Normal 47.2-70.8 [facility] Comment on above: Performed By: #### . Automated Diff ####[address] [address] HbA1c w/Rflx Fructosamineon 08-10-2022 Glucose [Mass/Vol] 128 mg/dL High 68-[address] [facility] Comment on above: Result Comment: Math ematical Calc approx. The mean gluc equivalency of A1c Performed By: #### C D:[id number] #### [address] [address] Hgb A1c 6.1 % A1c High 4.0-5.6 [facility] Comment on above: Result Comment: Refe rence Range: 4.0 - 5.6 % Normal 5.7 - 6.4 % Pre-Diabetes > 6.5 % Diabetes Performed By: #### C [id number] #### [address] [address] PTon 08-10-2022 INR Coag (PPP) [Relative time] 1.0 {INR} Normal <=3.5 [facility] Comment on above: Result Comment: INR has no normal range. INR Therapeutic range is: 2.0-3.0 (AF, CVA, TIAs, DVT prophylaxis, acute DVT) 2.5-3.5 ([facility], recurrent thrombosis/emboli) Performed By: #### C D:[id number] #### [address] [address] PT Coag (PPP) [Time] 10.7 s Normal 9.3-11.9 [facility] Comment on above: Performed By: #### C D:[id number] #### [address] [address] PTTon 08-10-2022 aPTT Coag (Bld) [Time] 20.9 s Normal 20.6-29.2 [facility] Comment on above: Performed By: #### P TT ####[place] [id number] Provider Letteron 08-10-2022 Provider Letter Gayla Martinez CNP [address] [place] [address] Re: Stephanflavio López Date of Visit: 08/10/2022 Dear Gayla Martinez CNP, Let me know if you have any questions or concerns. Sincerely, Lin Cintron Providers: [CC Letter Providers Please see attached lab results The following document(s) were included in the letter: August 10, 2022 13:04:48 EDT - (08/10/2022) Reminder Message Normal [facility] Provider Letter Gayla Martinez CNP [address] [place] [address] Re: Stephanflavio López Date of Visit: 08/10/2022 Dear Gayla Martinez CNP, Let me know if you have any questions or concerns. Sincerely, Lin Cintron Providers: [CC Letter Providers Please see attached ECG results The following document(s) were included in the letter: August 10, 2022 13:05:57 EDT - (08/10/2022) Reminder Message Normal [facility] UA w Culture if Indon 2022 Color (U) Yellow Normal [facility] Comment on above: Performed By: #### U CI ####[address] [address] Ketones Ql (U) Negative Normal Negative [facility] Comment on above: Performed By: #### U CI ####[place] [id number] UA Blood Negative Normal Negative [facility] Comment on above: Performed By: #### U CI ####[address] [place] [address] UA Clarity Clear Normal [facility] Comment on above: Performed By: #### U CI ####[address] [place] [address] UA Glucose Normal Normal Negative [facility] Comment on above: Performed By: #### U CI ####[address] [place] [address] UA Leukocyte Esterase Negative Normal Negative [facility] Comment on above: Performed By: #### U CI ####[address] [address] UA Nitrite Negative Normal Negative [facility] Comment on above: Performed By: #### U CI ####[address] [address] UA pH 5.0 Normal 4.5 - 7.8 [facility] Comment on above: Performed By: #### U CI ####[address] [address] UA Protein 10 mg/dL Normal Negative [facility] Comment on above: Performed By: #### U CI ####[address] [address] UA Source Clean Catch Normal [facility] Comment on above: Performed By: #### U CI ####[address] [address] UA Spec Grav 1.025 Normal 1.003-1.035 [facility] Comment on above: Performed By: #### U CI ####[address] [address] UA Urobilinogen Normal Normal 0.2 - 1.0 [facility] Comment on above: Performed By: #### U CI ####[address] [address] Urobilinogen (U) [Mass/Vol] Negative Normal Negative [facility] Comment on above: Performed By: #### U ####[facility] [place] [address] XR Chest 2 Viewson 3 XR Chest [...] Electronically Signed in Other Vendor System) Normal [facility] Neurosurgery Office/Clinic N oteon 07-23-2022 Neurosurgery Office/Clinic Note Chief Complaint Patient is being seen for a back follow up. History of Present Illness The patient is a pleasant 62-year-old right-handed female with history of msf-zuwmvfw-qictzsogf diabetes mellitus diagnosed in 2009, chronic nicotine [...] (provider interpretation): MRI cervical spine 05/29/2022 at [facility] reveals multilevel degenerative disc disease, most notably [...] overt instability. MRI lumbar spine 04/29/2022 at [facility] reveals multilevel degenerative disc disease. Significant facet [...] there is (more content not included)... Normal [facility] Neurosurgery Office/Clinic Note Chief Complaint Patient is [...] Sibling. I (more content not included)... Normal [facility] Office Visiton 07-03-2022 Follow-up visit [id number] James López 1960 F Date Provider Department Center 07/03/2022 INA JONES ROXY [facility] Family History Problem Relation Age of Onset Other Mother Heart attack Father Other Father Other Father Other Maternal Grandmother Family Status - Relation Status Age at Mother Father Maternal Grandmother Level of Service:07228 [place] OFFICE/OUTPATIENT ESTABLISHED LOW MDM 20-29 MIN Reason for Visit and Comments: Hypertension [542153] pericardial effusion [Other] Normal [facility] Neurosurgery Office/Clinic N oteon 06-24-2022 Neurosurgery Office/Clinic Note Chief Complaint Patient is being seen for a back follow up. History of Present Illness The patient is a pleasant 62-year-old right-handed female with history of qxp-gvgqyad-dvtoumwos diabetes mellitus diagnosed in 2009, chronic nicotine [...] (provider interpretation): MRI cervical spine 05/29/2022 at [facility] reveals multilevel degenerative disc disease, most notably [...] overt instability. MRI lumbar spine 04/29/2022 at [facility] reveals multilevel degenerative disc disease. Significant facet [...] measuring appro (more content not included)... Normal [facility] PROF CHEM 8 (BAS METB)on Anion gap [Moles/Vol] 12.9 mmol/L Normal [facility] Comment on above: Performed By: #### C BC #### [facility] [address] [place] [address] Dr. Yariel Herrera Calcium [Mass/Vol] 9.0 mg/dL Normal 8.5-10.1 [facility] Comment on above: Performed By: #### C BC #### [facility] [address] [place] [address] [address] Yariel Herrera Chloride [Moles/Vol] 106 mmol/L Normal 98-107 [facility] Comment on above: Performed By: #### C BC #### [facility] [address] [place] [address] [address] Yareil Herrera CO2 [Moles/Vol] 28.3 mmol/L Normal 21.0-32.0 [facility] Comment on above: Performed By: #### C BC #### [facility] [address] [place] [address] Dr. Yariel Herrera Creatinine [Mass/Vol] 0.81 mg/dL Normal 0.55-1.02 [facility] Comment on above: Performed By: #### C BC #### [facility] [address] [place] [address] Dr. Yariel Herrera EGFR-AF MONTENEGRIN >60 Normal >=60 [facility] Comment on above: Performed By: #### C BC #### [facility] [address] [place] [address] [address] Yariel Herrera EGFR-NON AF MONTENEGRIN >60 Normal >=60 [facility] Comment on above: Performed By: #### C BC #### [facility] [address] [place] [address] Dr. Yariel Herrera Glucose [Mass/Vol] 103 mg/dL Normal 74-106 [facility] Comment on above: Performed By: #### C BC #### [facility] [address] [place] [address] Dr. Yariel Herrera Potassium [Moles/Vol] 4.2 mmol/L Normal 3.5-5.1 [facility] Comment on above: Performed By: #### C BC #### [facility] [address] [place] [address] Dr. Yariel Herrera Sodium [Moles/Vol] 143 mmol/L Normal 136-145 [facility] Comment on above: Performed By: #### C BC #### [facility] [address] [place], [place] [address] Dr. Yariel Herrera Urea nitrogen [Mass/Vol] 9.0 mg/dL Normal 7.0-18.0 [facility] Comment on above: Performed By: #### C BC #### [facility] [address] [place], [place] [address] Dr. Yariel Herrera Urea nitrogen/Creatinine [Mass ratio] 11.1 mg/mg Normal [facility] Comment on above: Performed By: #### C BC #### [facility] [address] [place], [place] [address] Dr. Yariel Herrera 37on 06-10-2022 37 Start lisinopril 2.5 mg daily, Have labs/blood checked in 1 week for kidney function Monitor b/p at home 1-2 times/day and record on a log- bring with her to next visit. If you notice a dry, persistent cough- stop lisinopril and call office please. Normal [facility] Office Visiton 06-10-2022 Follow-up visit [id number] James López 1960 F Date Provider Department Center 06/10/2022 INA JONES [facility] Family History Problem Relation Age of Onset Other Mother Heart attack Father Other Father Other Father Other Maternal Grandmother Family Status - Relation Status Age at Mother Father Maternal Grandmother Level of Service:01896 [place] OFFICE/OUTPATIENT ESTABLISHED MOD MDM 30-39 MIN Normal [facility] ECHOCARDIO M/2D COMPLETEon 0 05-08-2022 ECHOCARDIO M/2D COMPLETE Patient: STEPHAN LÓPEZ Exam Date: 05/08/2022 : 1960 Gender:F Ordering : CARL WILLIS Admission #: [id number] Family : GAURAV GAYLA JOANNAAbebeKATINAIrina ORDER PROCESSOR Order #: [id number] CLICK HERE TO VIEW EXAM ECHOCARDIOGRAM REPORT [...] Garzon M.D. on 05/08/2022 at 14:20 Normal [facility] Neurosurgery Office/Clinic N zain 05-05-2022 Neurosurgery Office/Clinic Note Chief Complaint Patient is being seen to review imaging. History of Present Illness The patient is a pleasant 61-year-old right-handed female with history of ryy-xnuehzc-frfwlnpmz diabetes mellitus diagnosed in 2009, chronic nicotine [...] (provider interpretation): MRI lumbar spine 04/29/2022 at [facility] reveals multilevel degenerative disc disease. Significant facet [...] L5-S1. Additional imaging: DEXA scan 04/29/2022 at [facility] revealing osteopenia with T score -1.2. Review of Systems Constitutional: [No fevers, chills, sweats] Eye: [No recent visual problems] ENMT: [No ear pain, nasal conge (more content not included)... Normal [facility] Provider Letteron 05-05-2022 Provider Letter Gayla Martinez, ORDER PROCESSOR [address] [place] [address] Re: Stephan López Date of Visit: 05/05/2022 Dear Gayla Martinez ORDER PROCESSOR, This patient was recently seen in the neurosurgical office. Please see attached note for further details. Let me know if you have any questions or concerns. Sincerely, MICHELLE Engle Providers: The following document(s) were included in the letter: May 05, 2022 15:17:18 EDT - (05/05/2022) Neurosurgery Office Visit Note Normal [facility] ABHINAV by IFAon 01-08-2022 Antinuclear Antibodies, IFA Negative Normal [facility] Comment on above: Result Comment: Nega tive <1:80 Borderline 1:80 Positive >1:80 ICAP nomenclature: AC-0 For more information about Hep-2 cell patterns use ANApatterns.org, the official website for the International Consensus on Antinuclear Antibody (ABHINAV) Patterns (ICAP). Performed By: #### A NAIFA #### [facility] [facility] [address] [place] [address] Dr. Yariel Herrera CBC AUTO DIFFon 01-05-2022 BASO # 0.1 103/ul Normal 0.0-0.1 [facility] Comment on above: Performed By: #### C BC #### [facility] [address] [place] [address] Dr. Yariel Herrera Basophils/100 WBC (Bld) 0.6 % Normal 0.2-2.0 [facility] Comment on above: Performed By: #### C BC #### [facility] [address] [place] [address] Dr. Yariel Herrera EO # 0.2 103/ul Normal 0.0-0.7 [facility] Comment on above: Performed By: #### C BC #### [facility] [address] [place] [address] Dr. Yariel Herrera Eosinophils/100 WBC (Bld) 1.4 % Normal 0.9-7.0 [facility] Comment on above: Performed By: #### C BC #### [facility] [address] [place] [address] Dr. Yariel Herrera Erythrocyte distribution width (RBC) [Ratio] 13.6 % Normal 11.0-15.0 [facility] Comment on above: Performed By: #### C BC #### [facility] [address] [place] [address] Dr. Yariel Herrera Hematocrit (Bld) [Volume fraction] 46.6 % Normal 36.0-48.0 [facility] Comment on above: Performed By: #### C BC #### [facility] [address] [place] [address] Dr. Yariel Herrera Hemoglobin (Bld) [Mass/Vol] 15.4 g/dL Normal 12.0-16.0 [facility] Comment on above: Performed By: #### C BC #### [facility] [address] [place] [address] Dr. Yariel Herrera IG # 0.03 10e3/ul Normal 0.00-0.03 [facility] Comment on above: Performed By: #### C BC #### [facility] [address] [place] [address] Dr. Yariel Herrera IG % 0.2 % Normal 0.0-0.5 [facility] Comment on above: Performed By: #### C BC #### [facility] [address] [place] [address] Dr. Yariel Herrera LYMPH # 4.2 103/ul Critically high 1.2-3.[address] [facility] Comment on above: Performed By: #### C BC #### [facility] [address] [place] [address] Dr. Yariel Herrera Lymphocytes/100 WBC (Bld) 31.3 % Normal 20.5-60.0 [facility] Comment on above: Performed By: #### C BC #### [facility] [address] [place] [address] Dr. Yariel Herrera MANUAL DIFF REQ NO Normal [facility] Comment on above: Performed By: #### C BC #### [facility] [address] [place] [address] Dr. Yariel Herrera MCH (RBC) [Entitic mass] 31.6 pg Normal 26.7-34.0 [facility] Comment on above: Performed By: #### C BC #### [facility] [address] [address] [address] Yariel Herrera MCHC (RBC) [Mass/Vol] 33.0 g/dL Normal 29.9-35.2 [facility] Comment on above: Performed By: #### C BC #### [facility] [address] [address] [address] Yariel Herrera MCV (RBC) [Entitic vol] 95.7 fL Normal 81.0-99.0 [facility] Comment on above: Performed By: #### C BC #### [facility] [address] [place] [address] Dr. Yariel Herrera MONO # 0.9 103/ul Critically high 0.3-0.[address] [facility] Comment on above: Performed By: #### C BC #### [facility] [address] [place] [address] Dr. Yariel Herrera Monocytes/100 WBC (Bld) 6.8 % Normal 1.7-12.0 [facility] Comment on above: Performed By: #### C BC #### [facility] [address] [place] [address] Dr. Yariel Herrera NEUT # 8.0 103/ul Critically high 1.4-6.[address] [facility] Comment on above: Performed By: #### C BC #### [facility] [address] [place] [address] Dr. Yariel Herrera Neutrophils/100 WBC (Bld) 59.7 % Normal 43.0-75.0 [facility] Comment on above: Performed By: #### C BC #### [facility] [address] [place] [address] Dr. Yariel Herrera Platelet mean volume (Bld) [Entitic vol] 10.7 fL Normal 9.5-13.5 [facility] Comment on above: Performed By: #### C BC #### [facility] [address] [place] [address] Dr. Yariel Herrera PLT 340 103/ul Normal 150-450 [facility] Comment on above: Performed By: #### C BC #### [facility] [address] [place] [address] Dr. Yariel Herrera RBC 4.87 106/ul Normal 4.20-5.40 [facility] Comment on above: Performed By: #### C BC #### [facility] [address] [place] [address] Dr. Yariel Herrera WBC 13.4 103/ul Critically high 4.0-11.0 [facility] Comment on above: Performed By: #### C BC #### [facility] [address] [place] [address] Dr. Yariel Herrera FREE T4on 01-05-2022 Free T4 [Mass/Vol] 1.06 ng/dL Normal 0.76-1.46 [facility] Comment on above: Performed By: #### C BC #### [facility] [address] [place] [address] Dr. Yariel Herrera PROF 14(COMP METB)on 022 Albumin [Mass/Vol] 3.9 g/dL Normal 3.4-5.0 [facility] Comment on above: Performed By: #### C MP, TSH #### [facility] [address] [place] [address] Dr. Yariel Herrera Albumin/Globulin [Mass ratio] 1.1 {ratio} Normal [facility] Comment on above: Performed By: #### C MP, TSH #### [facility] [address] [place] [address] Dr. Yariel Herrera ALP [Catalytic activity/Vol] 99 U/L Normal 46-116 [facility] Comment on above: Performed By: #### C MP, TSH #### [facility] [address] [place] [address] Dr. Yariel Herrera ALT [Catalytic activity/Vol] 17 U/L Normal 14-59 [facility] Comment on above: Performed By: #### C MP, TSH #### [facility] [address] [place] [address] Dr. Yariel Herrera Anion gap [Moles/Vol] 10.1 mmol/L Normal [facility] Comment on above: Performed By: #### C MP, TSH #### [facility] [address] [place] [address] Dr. Yariel Herrera AST [Catalytic activity/Vol] 14 U/L Critically low 15-37 [facility] Comment on above: Performed By: #### C MP, TSH #### [facility] [address] [place] [address] Dr. Yariel Herrera Bilirubin [Mass/Vol] 0.3 mg/dL Normal 0.2-1.0 [facility] Comment on above: Performed By: #### C MP, TSH #### [facility] [address] [place] [address] Dr. Yariel Herrera Calcium [Mass/Vol] 9.4 mg/dL Normal 8.5-10.1 [facility] Comment on above: Performed By: #### C MP, TSH #### [facility] [address] [place] [address] Dr. Yariel Herrera Chloride [Moles/Vol] 103 mmol/L Normal 98-107 [facility] Comment on above: Performed By: #### C MP, TSH #### [facility] [address] [place] [address] Dr. Yariel Herrera CO2 [Moles/Vol] 30.9 mmol/L Normal 21.0-32.0 [facility] Comment on above: Performed By: #### C MP, TSH #### [facility] [address] [place] [address] Dr. Yariel Herrera Creatinine [Mass/Vol] 0.88 mg/dL Normal 0.55-1.02 [facility] Comment on above: Performed By: #### C MP, TSH #### [facility] [address] [place] [address] Dr. Yariel Herrera EGFR-AF MONTENEGRIN >60 Normal >=60 [facility] Comment on above: Performed By: #### C MP, TSH #### [facility] [address] [place] [address] Dr. Yariel Herrera EGFR-NON AF MONTENEGRIN >60 Normal >=60 [facility] Comment on above: Performed By: #### C MP, TSH #### [facility] [address] [place] [address] Dr. Yariel Herrera Globulin (S) [Mass/Vol] 3.5 g/dL Normal [facility] Comment on above: Performed By: #### C MP, TSH #### [facility] [address] [place] [address] Dr. Yariel Herrera Glucose [Mass/Vol] 117 mg/dL Critically high 74-106 [facility] Comment on above: Performed By: #### C MP, TSH #### [facility] [address] [place] [address] Dr. Yariel Herrera Potassium [Moles/Vol] 4.0 mmol/L Normal 3.5-5.1 [facility] Comment on above: Performed By: #### C MP, TSH #### [facility] [address] [place] [address] Dr. Yariel Herrera Protein [Mass/Vol] 7.4 g/dL Normal 6.4-8.2 [facility] Comment on above: Performed By: #### C MP, TSH #### [facility] [address] [place] [address] Dr. Yariel Herrera Sodium [Moles/Vol] 140 mmol/L Normal 136-145 [facility] Comment on above: Performed By: #### C MP, TSH #### [facility] [address] [place] [address] Dr. Yariel Herrera Urea nitrogen [Mass/Vol] 18.0 mg/dL Normal 7.0-18.0 [facility] Comment on above: Performed By: #### C MP, TSH #### [facility] [address] [place] [address] Dr. Yariel Herrera Urea nitrogen/Creatinine [Mass ratio] 20.5 mg/mg Normal [facility] Comment on above: Performed By: #### C MP, TSH #### [facility] [address] [place] [address] Dr. Yariel Herrera TSHon 01-05-2022 TSH 1.380 uIU/mL Normal 0.358-3.740 [facility] Comment on above: Performed By: #### C MP, TSH #### [facility] [address] [address] [address] Yariel Herrera GLYCOHEMOGLOBIN A1Con 2021 ADA RECOMMENDATION SEE BELOW Normal [facility] Comment on above: Result Comment: ADA RECOMMENDED LIMIT 4.0 - 6.0 ADA THERAPEUTIC TARGET < 7.0 ACTION SUGGESTED > 7.0 Performed By: #### A 1C #### [facility] [address] [address] [address] Yariel Herrera Glucose [Mass/Vol] 137 mg/dL Normal [facility] Comment on above: Performed By: #### A 1C #### [facility] [address] [address] [address] Yariel Herrera HbA1c (Bld) [Mass fraction] 6.4 % Critically high 4.5-6.2 [facility] Comment on above: Performed By: #### A 1C #### [facility] [address] [address] [address] Yariel Herrera ECHOCARDIO M/2D COMPLETEon 0 10-16-2021 ECHOCARDIO M/2D COMPLETE Patient: STEPHAN LÓPEZ Exam Date: 10/16/2021 : 1960 Gender:F Ordering : CARL WILLIS Admission #: [id number] Family : Order #: [id number] CLICK HERE TO VIEW EXAM ECHOCARDIOGRAM REPORT [...] Melvin M.D. on 10/16/2021 at 17:12 Normal [facility] ECHOCARDIO M/2D COMPLETEon 0 09-16-2021 ECHOCARDIO M/2D COMPLETE Patient: STEPHAN LÓPEZ Exam Date: 09/16/2021 : 1960 Gender:F Ordering : GAURAV MARTINEZ [facility] Admission #: [id number] Family : Order #: [id number] CLICK HERE TO VIEW EXAM ECHOCARDIOGRAM REPORT [...] M.D. on 09/17/2021 at 13:02 Normal [facility] CBC AUTO DIFFon 08-04-2021 BASO # 0.1 103/ul Normal 0.0-0.1 [facility] Comment on above: Performed By: #### C BC #### [facility] [address] [address] [address] Yariel Herrera Basophils/100 WBC (Bld) 0.6 % Normal 0.2-2.0 [facility] Comment on above: Performed By: #### C BC #### [facility] [address] [address] [address] Yariel Herrera EO # 0.1 103/ul Normal 0.0-0.7 [facility] Comment on above: Performed By: #### C BC #### [facility] [address] [address] [address] Yariel Herrera Eosinophils/100 WBC (Bld) 0.9 % Normal 0.9-7.0 [facility] Comment on above: Performed By: #### C BC #### [facility] [address] [address] [address] Yariel Herrera Erythrocyte distribution width (RBC) [Ratio] 13.8 % Normal 11.0-15.0 [facility] Comment on above: Performed By: #### C BC #### [facility] [address] [address] [address] Yariel Herrera Hematocrit (Bld) [Volume fraction] 47.1 % Normal 36.0-48.0 [facility] Comment on above: Performed By: #### C BC #### [facility] [address] [place] [address] Dr. Yariel Herrera Hemoglobin (Bld) [Mass/Vol] 15.2 g/dL Normal 12.0-16.0 [facility] Comment on above: Performed By: #### C BC #### [facility] [address] [place] [address] Dr. Yariel Herrera IG # 0.04 10e3/ul Critically high 0.00-0.03 [facility] Comment on above: Performed By: #### C BC #### [facility] [address] [place] [address] Dr. Yariel Herrera IG % 0.3 % Normal 0.0-0.5 [facility] Comment on above: Performed By: #### C BC #### [facility] [address] [place] [address] Dr. Yariel Herrera LYMPH # 3.7 103/ul Normal 1.2-3.8 [facility] Comment on above: Performed By: #### C BC #### [facility] [address] [place] [address] Dr. Yariel Herrera Lymphocytes/100 WBC (Bld) 30.6 % Normal 20.5-60.0 [facility] Comment on above: Performed By: #### C BC #### [facility] [address] [place] [address] Dr. Yariel Herrera MANUAL DIFF REQ NO Normal [facility] Comment on above: Performed By: #### C BC #### [facility] [address] [place] [address] Dr. Yariel Herrera MCH (RBC) [Entitic mass] 32.0 pg Normal 26.7-34.0 [facility] Comment on above: Performed By: #### C BC #### [facility] [address] [place] [address] Dr. Yariel Herrera MCHC (RBC) [Mass/Vol] 32.3 g/dL Normal 29.9-35.2 [facility] Comment on above: Performed By: #### C BC #### [facility] [address] [address] [address] Yariel Herrera MCV (RBC) [Entitic vol] 99.2 fL Critically high 81.0-99.0 [facility] Comment on above: Performed By: #### C BC #### [facility] [address] [address] [address] Yariel Herrera MONO # 0.9 103/ul Critically high 0.3-0.[address] [facility] Comment on above: Performed By: #### C BC #### [facility] [address] [address] [address] Yariel Herrera Monocytes/100 WBC (Bld) 7.4 % Normal 1.7-12.0 [facility] Comment on above: Performed By: #### C BC #### [facility] [address] [place] [address] Dr. Yariel Herrera NEUT # 7.3 103/ul Critically high 1.4-6.[address] [facility] Comment on above: Performed By: #### C BC #### [facility] [address] [place] [address] Dr. Yariel Herrera Neutrophils/100 WBC (Bld) 60.2 % Normal 43.0-75.0 [facility] Comment on above: Performed By: #### C BC #### [facility] [address] [place] [address] Dr. Yariel Herrera Platelet mean volume (Bld) [Entitic vol] 11.7 fL Normal 9.5-13.5 [facility] Comment on above: Performed By: #### C BC #### [facility] [address] [place] [address] Dr. Yariel Herrera PLT 330 103/ul Normal 150-450 [facility] Comment on above: Performed By: #### C BC #### [facility] [address] [place] [address] Dr. Yariel Herrera RBC 4.75 106/ul Normal 4.20-5.40 [facility] Comment on above: Performed By: #### C BC #### [facility] [address] [place] [address] Dr. Yariel Herrera WBC 12.1 103/ul Critically high 4.0-11.0 [facility] Comment on above: Performed By: #### C BC #### [facility] [address] [place] [address] Dr. Yariel Herrera FREE T3on 08-04-2021 FREE T3 2.46 pg/mlL Normal 2.18-3.98 [facility] Comment on above: Performed By: #### C BC #### [facility] [address] [place] [address] Dr. Yariel Herrera FREE T4on 08-04-2021 Free T4 [Mass/Vol] 1.08 ng/dL Normal 0.76-1.46 [facility] Comment on above: Performed By: #### F T4 #### [facility] [address] [place] [address] Dr. Yariel Herrera PROF 14(COMP METB)on 022 Albumin [Mass/Vol] 4.2 g/dL Normal 3.4-5.0 [facility] Comment on above: Performed By: #### C BC #### [facility] [address] [place] [address] Dr. Yariel Herrera Albumin/Globulin [Mass ratio] 1.2 {ratio} Normal [facility] Comment on above: Performed By: #### C BC #### [facility] [address] [place] [address] Dr. Yariel Herrera ALP [Catalytic activity/Vol] 87 U/L Normal 46-116 [facility] Comment on above: Performed By: #### C BC #### [facility] [address] [place] [address] Dr. Yariel Herrera ALT [Catalytic activity/Vol] 25 U/L Normal 14-59 [facility] Comment on above: Performed By: #### C BC #### [facility] [address] [place] [address] Dr. Yariel Herrera Anion gap [Moles/Vol] 13.3 mmol/L Normal [facility] Comment on above: Performed By: #### C BC #### [facility] [address] [place] [address] Dr. Yariel Herrera AST [Catalytic activity/Vol] 15 U/L Normal 15-37 [facility] Comment on above: Performed By: #### C BC #### [facility] [address] [address] [address] Yariel Herrera Bilirubin [Mass/Vol] 0.5 mg/dL Normal 0.2-1.0 [facility] Comment on above: Performed By: #### C BC #### [facility] [address] [place] [address] Dr. Yariel Herrera Calcium [Mass/Vol] 9.6 mg/dL Normal 8.5-10.1 [facility] Comment on above: Performed By: #### C BC #### [facility] [address] [place] [address] Dr. Yariel Herrera Chloride [Moles/Vol] 103 mmol/L Normal 98-107 [facility] Comment on above: Performed By: #### C BC #### [facility] [address] [place] [address] Dr. Yariel Herrera CO2 [Moles/Vol] 28.9 mmol/L Normal 21.0-32.0 [facility] Comment on above: Performed By: #### C BC #### [facility] [address] [place] [address] Dr. Yariel Herrera Creatinine [Mass/Vol] 0.84 mg/dL Normal 0.55-1.02 [facility] Comment on above: Performed By: #### C BC #### [facility] [address] [place] [address] Dr. Yariel Herrera EGFR-AF MONTENEGRIN >60 Normal >=60 [facility] Comment on above: Performed By: #### C BC #### [facility] [address] [place] [address] Dr. Yariel Herrera EGFR-NON AF MONTENEGRIN >60 Normal >=60 [facility] Comment on above: Performed By: #### C BC #### [facility] [address] [place] [address] Dr. Yariel Herrera Globulin (S) [Mass/Vol] 3.4 g/dL Normal [facility] Comment on above: Performed By: #### C BC #### [facility] [address] [address] [address] Yariel Herrera Glucose [Mass/Vol] 111 mg/dL Critically high 74-106 [facility] Comment on above: Performed By: #### C BC #### [facility] [address] [address] [address] Yariel Herrera Potassium [Moles/Vol] 4.2 mmol/L Normal 3.5-5.1 [facility] Comment on above: Performed By: #### C BC #### [facility] [address] [place] [address] Dr. Yariel Herrera Protein [Mass/Vol] 7.6 g/dL Normal 6.4-8.2 [facility] Comment on above: Performed By: #### C BC #### [facility] [address] [place] [address] Dr. Yariel Herrera Sodium [Moles/Vol] 141 mmol/L Normal 136-145 [facility] Comment on above: Performed By: #### C BC #### [facility] [address] [place] [address] Dr. Yariel Herrera Urea nitrogen [Mass/Vol] 15.0 mg/dL Normal 7.0-18.0 [facility] Comment on above: Performed By: #### C BC #### [facility] [address] [address] [address] Yariel Herrera Urea nitrogen/Creatinine [Mass ratio] 17.9 mg/mg Normal [facility] Comment on above: Performed By: #### C BC #### [facility] [address] [address] [address] Yariel Herrera TSHon 08-04-2021 TSH 1.073 uIU/mL Normal 0.358-3.740 [facility] Comment on above: Performed By: #### C BC #### [facility] [address] [place] [address] Dr. Yariel Herrera TSH RANGE SEE BELOW Normal [facility] Comment on above: Result Comment: <0.3 4 UIU/ml HYPERTHYROID 0.34-5.60 UIU/ml EUTHYROID >5.60 UIU/ml HYPOTHYROID Performed By: #### C BC #### [facility] [address] [place], [place] [address] Dr. Yariel Herrera Encounters Encounter Date Encounter Type Care Provider Facility Start: 04-29-2023 ambulatory Dasha Waggoner PA-C F acility:[facility] Start: 04-26-2023 End: 04-26-2023 ambulatory GAYLA AICHHOLZ Not Available Start: 04-08-2023 Clinisync Result Encounter Gayla Martinez TRA[facility]ING [facility] Work Phone: [facility] External Department Unsolicited Start: 04-08-2023 Clinisync Result Encounter Gayla Martinez TRA[facility]ING [facility] Work Phone: [facility] External Department Unsolicited Start: 04-07-2023 Refill Gayla Martinez TRAINING [facility] Work Phone: [facility] Comment on above: COPD with exacerbati on (CMS/HCC) (Primary Dx) Start: 02-08-2023 End: 02-09-2023 ambulatory Dasha Waggoner PA-C Facility:[facility] Start: 01-25-2023 End: 01-25-2023 ambulatory GAYLA AICHHOLZ Not Available Start: 01-19-2023 End: 01-19-2023 ambulatory [facility] Start: 12-22-2022 End: 12-23-2022 ambulatory Dasha Waggoner PA-C Facility:[facility] Start: 11-26-2022 End: 11-27-2022 ambulatory Dasha CARLC Facility:[facility] Start: 11-23-2022 End: 11-24-2022 ambulatory Lara Mar MD Facility:[facility] Start: 10-15-2022 End: 10-16-2022 ambulatory Dasha CARLC Facility:[facility] Start: 09-16-2022 End: 09-17-2022 ambulatory Dasha Waggoner PA-C Facility:[facility] Start: 08-21-2022 End: 08-24-2022 Evaluation and management of inpatient Delfino Snider III, MD Facility:[facility] Start: 08-14-2022 End: 08-15-2022 ambulatory Delfino Snider III, MD Facility:[facility] Start: 08-10-2022 End: 08-11-2022 ambulatory Delfino Snider III, MD Facility:[facility] Start: 08-06-2022 ambulatory Delfino Snider III, MD Facility:[facility] Start: 07-23-2022 End: 07-24-2022 ambulatory Dasha HODGES-C Facility:[facility] Start: 07-03-2022 End: 07-03-2022 ambulatory [facility] Start: 06-24-2022 End: 06-25-2022 ambulatory [facility]ODGES-C [facility] Start: 06-17-2022 End: 06-18-2022 ambulatory [facility] Facility:[facility] Start: 06-10-2022 End: 06-10-2022 ambulatory [facility] Start: 05-08-2022 End: 05-09-2022 ambulatory MOHFINAD ALGHOTHANI Facility:[facility] Start: 05-05-2022 End: 05-06-2022 ambulatory Dasha HODGES-C Facility:[facility] Start: 01-05-2022 End: 01-06-2022 ambulatory MOHAMAD ALGHOTHANI Facility:[facility] Start: 11-05-2021 End: 11-06-2021 ambulatory ORDER PROCESSOR GAYLA AICHHOLZ Facility:[facility] Start: 10-16-2021 End: 10-17-2021 ambulatory MOHAMAD ALGHOTHANI Facility:[facility] Start: 09-16-2021 End: 09-17-2021 ambulatory ORDER PROCESSOR GAYLA AICHHOLZ Facility:[facility] Start: 08-04-2021 End: 08-05-2021 ambulatory ORDER PROCESSOR GAYLA AICHHOLZ Facility:[facility] Procedures Date Procedure Procedure Detail Performing Clinician Start: 04-08-2023 [facility] Gayla Martinez TRA[facility]ING [facility] Work Phone: Start: 12-03-2022 Mammography Gayla jerome TRA[facility]ING [facility] Work Phone: Start: 04-20-2013 Colonoscopy Gayla Sara jerome TRA[facility]ING [facility] Work Phone: Plan of Treatment Date Care Activity Detail Author Start: 09-08-2026 Screening for malign ant neoplasm of colon [facility] Start: 12-04-2023 Screening for malign ant neoplasm of breast Mammogram [facility] Start: 08-22-2023 Influenza vaccination Influenza Vacc ine (#1) [facility] Comment on above: Postponed from 10/23 (Other Medical Reasons) Start: 07-24-2023 Screening for malign ant neoplasm of cervix Cervical Cancer Screening [facility] Comment on above: Postponed from 02/03 (Other Medical Reasons) Start: 05-30-2023 Urine screening for protein Diabetes: Urine Protein Screening [facility] Start: 04-26-2023 Glaucoma screening Diabetes: R etinopathy Screening [facility] Comment on above: Postponed from 02/03 (Other Medical Reasons) Start: 04-26-2023 End: 04-26-2023 Patient encounter procedure 04/26/2023 9:00 AM EST Office Visit [facility] [address] [place] [address] Gayla Martinez NP [address] [place] [address] [facility] Start: 03-05-2023 Hemoglobin A1c measurement Diabetes: Hemoglobin A1C [facility] Start: 02-03-1990 Screening for malign ant neoplasm of cervix HPV/Cotest [facility] Start: 02-03-1981 Screening for malign ant neoplasm of cervix Pap Smear [facility] Start: 1960 Screening for malign ant neoplasm of colon [facility] Immunizations Immunization Date Immunization Notes Care Provider Fa cility 01-06-2022 influenza virus vacc ine, unspecified formulation Gayla Martinez TRAINING [employer] Work Phone: [facility] Payers Date Payer Category Payer Private Health Insurance 2022 Medicaid [employer] [place] [id number] 2022-Present [address] [place] [address] [id number] 1960 Unknown [id number] 2.16.840.1.850666.3.579.2. 593 1960 Unknown [id number] 2.16.840.1.661506.3.579.2. 593 1960 Unknown [id number] 2.16.840.1.914571.3.579.2. 593 1960 Unknown [id number] 2.16.840.1.844299.3.579.2. 593 1960 Unknown [id number] 2.16.840.1.134013.3.579.2. 593 1960 Unknown [id number] 2.16.840.1.147991.3.579.2. 593 1960 Unknown [id number] 2.16.840.1.374739.3.579.2. 593 1960 Unknown [id number] 2.16.840.1.029125.3.579.2. 196 1960 Unknown [id number] 2.16.840.1.835782.3.579.2. 196 1960 Unknown [id number] 2.16.840.1.291536.3.579.2. 196 1960 Unknown [id number] 2.16.840.1.102138.3.579.2. 196 1960 Unknown [id number] 2.16.840.1.761995.3.579.2. 196 1960 Unknown [id number] 2.16.840.1.912633.3.579.2. 196 1960 Unknown [id number] 2.16.840.1.212270.3.579.2. 196 1960 Unknown [id number] 2.16.840.1.455401.3.579.2. 196 1960 Unknown [id number] 2.16.840.1.806696.3.579.2. 196 1960 Unknown [id number] 2.16.840.1.412443.3.579.2. 196 1960 Unknown [id number] 2.16.840.1.459633.3.579.2. 196 1960 Unknown [id number] 2.16.840.1.422416.3.579.2. 196 1960 Unknown [id number] 2.16.840.1.775973.3.579.2. 196 1960 Unknown [id number] 2.16.840.1.020741.3.579.2. 196 1960 Unknown [id number] 2.16.840.1.589416.3.579.2. 196 1960 Unknown [id number] 2.16.840.1.852720.3.579.2. 1259 1960 Unknown [id number] 2.16.840.1.641757.3.579.2. 1259 1959 Unknown [id number] 1959 Unknown [id number] Social History Date Type Detail Facility [facility]: [facility] History of tobacco use Cigarette Smoker [facility] Start: 01-25-2023 Cigarettes smoked cu rrent (pack per day) - Reported 0.5 [facility] Start: 01-25-2023 Tobacco use and exposure Smoke less tobacco non-user [facility] Start: 02-08-2023 Alcohol intake Lifetime non-d mariaa (finding) [facility] Start: 01-25-2023 Tobacco use panel [facility] Start: 1960 Sex Assigned At Not on file [facility] Medical Equipment Procedure Code Equipment Code Equipment Original Text Equi pment Identifier Dates 1 Device Daily as needed. [id number] Clinical Notes 06-10-2022 to 01-19-2023 Note Date & Type Note Facility 01-19-2023 Note Cardiovascular Medic [facility] SUBJECTIVE Chief Complaint Patient presents with Follow-up Hypertension Stephan López is a 62 y.o. female here for follow-up. HPI PMHx: HTN, pericardial effusion, HLD She denies any cardiac concerns today. She has back problems. She is 5 months s/p surgery and she is still recovering. She is following with pain management at [facility]. She is not currently checking her [...] not crush or chew., Disp: , Rfl: Trelemarin Ellipta 100-62.5-25 mcg blister with device, inhale [...] needed. Dante Hand NP [facility] Cardiovascular Medicine [facility] 01-19-2023 Note Patient here for 6 m [...] All other systems reviewed and are negative. [facility] 08-24-2022 Note Admission Tayloratio ana Hayes 62-year-old female with a history of [...] neurosurgery education form Follow-up: As scheduled preoperatively-call [phone] to confirm appointment to be seen in the neurosurgery clinic approximately 2 weeks after surgery Procedures while admitted: -Decompressive laminectomies of L3 and L4 as well as superior third of L5 with total foraminotomies bilateral L3-4 and L4-5; interbody arthrodesis L4-5 using TLIF technique with locally harvested autograft from laminectomy and [employer] elevate expandable cage 8-12 mm; posterolateral arthrodesis L3-L4 and L5 bilaterally with locally harvested autograft and small kit infuse from [employer] due to chronic nicotine abuse; transpedicular fixation L3, L4, L5 bilaterally with [employer] Osteogrip screws 6.5 mm in diameter; resection of juxta articular facet cyst left L4-5; computer-assisted hardware placement using [employer] and [employer] O-arm Medications Home atorvastatin 20 mg oral [...] oral capsule, 500 mg= 1 caps, Oral, [id number] Times magnesium hydroxide 8% oral suspension, 1.2 [...] Refill(s), 08/31/22 7:48:00 EDT, Pharmacy: [facility] #[id number] Discharge Patient 3. Lumbar radiculopathy Ordered: Discharge Patient 4. Nicotine dependence Ordered: Discharge Patient Orders: ascorbic acid, 1 tabs, Oral, q8hr, # 270 tabs, 0 Refill(s), Pharmacy: [facility] #[id number] cephalexin, 500 mg, Oral, Cap, [id number]-[id number] Times for 12 doses, First Dose: 08/24/22 12:00:00 EDT, Stop Date: 08/27/22 11:59:00 EDT, Dispense From Location: [address], Prophylaxis- Pre/Post-Op, 08/24/22 7:40:00 EDT cephalexin, 1 caps, Oral, [id number]-Mkovevgf Times, X 3 days, # 12 caps, 0 Refill(s), 08/27/22 7:47:00 EDT, Pharmacy: [facility] #[id number] docusate, 1 caps, Oral, BID, # 14 caps, 0 Refill(s), Pharmacy: [facility] #[id number] ferrous sulfate, 1 tabs, Oral, BID, # 60 tabs, 0 Refill(s), Pharmacy: [facility] #[id number] magnesium hydroxide, 15 mL, Ora (more content not included)... [facility] 07-03-2022 Note No concerning symptoms [facility] 07-03-2022 Note Hypertension is well controlled 120/84 Reviewed b/p log and overall her b/p is controlled with some outliers of high and low b/p. Renal function was normal s/p starting lisinopril [facility] 07-03-2022 Note Patient here for 1 m [...] All other systems reviewed and are negative. [facility] 07-03-2022 Note [facility] CARDIOLOGY PROGR ESS NOTE [...] effusion No concerning symptoms RTC 6 months [facility] 06-10-2022 Note F/U with PCP [facility] 06-10-2022 Note Hypertension is 145/ 99 uncontrolled Will start lisinopril 2.5 mg daily BMP in 1 week Start monitoring b/p at home and record on a log, RTC 1 month D/W pt about side effects of 1st dose low b/p and dry persistent cough [facility] 06-10-2022 Note Recent echo with not ed trivial effusion. No recent illness or any concerning symptoms [facility] 06-10-2022 Note [facility] CARDIOLOGY PROGR ESS NOTE HPI: Stephan López is a 62 y.o. female here for routine f/U for pericardial effusion. At the time, patient denied any cardiac complaints. She denied any chest pain or shortness of breath. She denies any cardiac history. No history of PR, PCI, CHF. Repeat echocardiogram demonstrated a trivial [...] with PCP RTC 1 month for re-evaluation [facility] 06-10-2022 Note Patient here for 6 m o follow up pericardial effusion. Had echo in April 2022. Denies chest pain and SOB. Review of Systems Musculoskeletal: Positive for back pain. All other systems reviewed and are negative. [facility] Evaluation note Diagnosis COPD with exacerbation (CMS/HCC)- [...] and content) DATE CREATED AUTHOR 06/21/2022 [facility] DATE CREATED AUTHOR AUTHOR'S ORGANIZ ATION 03/20/2023 [facility] DATE CREATED AUTHOR AUTHOR'S ORGANIZ ATION 04/12/2023 [facility] DATE CREATED AUTHOR AUTHOR'S ORGANIZ ATION 04/26/2023 [facility] EPIC Care Teams (unrecognized sec tion and content) [employer] Relationship Specialty Start Date End Date Jim Deleon MD [address] [place] [address] PCP - General Family Medicine 09/18/22 Gayla Martinez NP [address] [place] [address] Referring Physician Nurse Practitioner 09/18/22 [employer] Relationship Specialty Start Date End Date Jim Deleon MD [address] [place] [address] PCP - General Family Medicine 09/18/22 Gayla Martinez NP [address] [place] [address] Referring Physician Nurse Practitioner 09/18/22 FOR RECORDS [...] BE BASED ON THE PRIMARY CLINICAL RECORDS. [facility] provides no warranty or guarantee of the accuracy or completeness of information in this document.
== END 2023-04-30 14:49 | disposition home or self-care (01) ==
LOC: RAD 14:52
PROVIDERS: PCP Nurse Practitioner; Visit Provider Physician Assistant
DX: M48.062 Spinal stenosis, lumbar region with neurogenic claudication (principal); Z98.1 Arthrodesis status; M54.16 Radiculopathy, lumbar region
CPT/HCPCS: 72100

== ENCOUNTER 2023-05-06 08:41 | Outpatient (RCR) | payer OTHER, SELFPAY | END 2023-07-17 13:14 | disposition home or self-care (01) | LOC: PT 08:41 | PROVIDERS: PCP Nurse Practitioner | DX: M41.50 Other secondary scoliosis, site unspecified (principal); Z98.1 Arthrodesis status | CPT/HCPCS: 97110; 97112; 97113; 97163; 97530 ==

== ENCOUNTER 2023-05-10 07:37 | Day surgery (SDC) | payer OTHER, SELFPAY ==
--- OUTSIDE RECORDS SUMMARY | 2023-05-10 07:39 | XMS_ITS | CCD ---
Author Name Unknown Address [address] [place] [address] Organization [facility] Care Team Providers Care Manager Star Name Role Phone ALGCHRISTINEANI, MOHAMAD Attending Unavailable AICHHOLZ, OIL FIRE SPECIALIST GAYLA Primary Care Unavailable ALGHOTHANI, MOHAMAD Consulting Unavailable ALGHOTHANI, MOHAMAD Admitting Unavailable AICHHOLZ, OIL FIRE SPECIALIST GAYLA Primary Care Unavailable AICHHOLZ, OIL FIRE SPECIALIST GAYLA Admitting Unavailable AICHHOLZ, OIL FIRE SPECIALIST GAYLA Attending Unavailable AICHHOLZ, OIL FIRE SPECIALIST GAYLA Consulting Unavailable ALGHOTHANI, MOHAMAD Attending Unavailable AICHHOLZ, OIL FIRE SPECIALIST GAYLA Primary Care Unavailable ALGHOTHANI, MOHAMAD Consulting Unavailable ALGHOTHANI, MOHAMAD Admitting Unavailable ALGHOTHANI, MOHAMAD Attending Unavailable AICHHOLZ, OIL FIRE SPECIALIST GAYLA Primary Care Unavailable ALGHOTHANI, MOHAMAD Consulting Unavailable ALGHOTHANI, MOHAMAD Admitting Unavailable ALEX, INA Attending Unavailable ALEX, INA Admitting Unavailable ALEX, INA Consulting Unavailable AICHHOLZ, OIL FIRE SPECIALIST GAYLA Primary Care Unavailable AICHHOLZ, OIL FIRE SPECIALIST GAYLA Admitting Unavailable AICHHOLZ, OIL FIRE SPECIALIST GAYLA Attending Unavailable AICHHOLZ, OIL FIRE SPECIALIST GAYLA Consulting Unavailable AICHHOLZ, OIL FIRE SPECIALIST GAYLA Primary Care Unavailable AICHHOLZ, OIL FIRE SPECIALIST GAYLA Admitting Unavailable AICHHOLZ, OIL FIRE SPECIALIST GAYLA Attending Unavailable AICHHOLZ, OIL FIRE SPECIALIST GAYLA Consulting Unavailable AICHHOLZ, OIL FIRE SPECIALIST GAYLA Primary Care Unavailable ALEX, INA Attending Unavailable ALEX, INA Attending Unavailable DANTE HAND Attending Unavailable Aichholz SOLE CONDITIONER, Gayla Unavailable Pancho BOWIE, Jim Primary Care Provider [phone] GAYLA MARTINEZ Attending Unavailable AICHHOLIrina, GAYLA Attending Unavailable Tylor KAMARA MD, Delfino Freeman Attending U kasey Mar MD, Lara Amos Attending Unavailable Edilson PA-C, Dasha Pedro Attending Unavailab le Edilson PA-C, Dasha Pedro Attending Unavailab le Unavailable, Physician Primary Care Unavailab Lenora KAMARA MD, Delfino Freeman Consulting U navailable Edilson PA-C, Dasha Pedro Attending Unavailab le Edilson PA-C, Dasha Pedro Attending Unavailab le Unavailable, Physician Primary Care Unavailab le Edilson PA-C, Dasha Pedro Attending Unavailab le Edilson PA-C, Dasha Pedro Attending Unavailab rose Snider III, MD, Delfino Freeman Admitting U kasey Snider III, MD, Delfino Freeman Attending U navailable Edilson PA-C, Dasha Pedro Attending Unavailab le Edilson PA-C, Dasha Pedro Attending Unavailab le Edilson PA-C, Dasha Pedro Attending Unavailab le Edilson PA-C, Dasha Pedro Attending Unavailab le Edilson PA-C, Dasha Pedro Attending Unavailab rose Snider III, MD, Delfino Freeman Attending U kasey Snider III, MD, Delfino Freeman Attending U navailrenuka Allergies Allergy Classification Reported Allergen(s) Allergy Type Date of Onset Reaction(s) Facility (3 sources) pregabalin; Translations: [PREGABALIN] Drug Allergy 3 [facility] Repository (1 source) No Known Medication Allergies; Translations: [No Known Medication Allergies] Propensity to adverse reactions to drug (disorder) [facility] Repository Medications Current Medications Medication Drug Class(es) [...] oral solution (2 sources) alpha-Adrenergic Agonist, Uncompetitive Z-acvfyz-P-aspartat e Receptor Antagonist, Sigma-1 Agonist Start: 04-07-2023 [...] Test Name Value Interpretation Reference Range Facility [facility] INFLUENZA A AND B AGon 0 04-08-2023 INFLUENZA VIRUS A ANTIGEN Positive Abnormal [facility] Comment on above: NOTE: Live attenuate d influenza vaccine viruses can cause a positive result for a rapid influenza diagnostic test if administered up to 7 days prior to rapid testing. INFLUENZA VIRUS B ANTIGEN Negative [facility] Comment on above: Negative for Flu B p rotein antigen. Infection due to Flu B cannot be ruled out. Flu B antigen in the sample may be below the detection limit of the test. Interpretation and review of laboratory results Abnormal [facility] 36on 03-19-2023 36 Please let her know her labs showed normal kidney function. Can continue lisinopril. Thank you Normal [facility] Telephoneon 03-19-2023 Telephone [id number] James López 1960 F Date Provider Department Center 03/19/2023 EseDANTE HAND [facility] Family History Problem Relation Age of Onset Other Mother Heart attack Father Other Father Other Father Other Maternal Grandmother Family Status - Relation Status Age at Mother Father Maternal Grandmother Normal [facility] Neurosurgery Office/Clinic N oteon 02-08-2023 Neurosurgery Office/Clinic [...] and tizanidine as provided by pain management ([facility] pain management) only as needed and has not yet returned to NSAID medication. She continues to utilize nicotine and understands the deleterious effects of nicotine on her overall health and bony arthrodesis. Recent imaging (provider interpretation): CT lumbar spine 02/03/2023 at [facility] reveals evidence of L3-5 posterior spinal [...] prior imaging. CT lumbar spine 10/14/2022 at [facility] reveals evidence of L3-5 decompression and [...] bladder inc (more content not included)... Normal [facility] Office Visiton 01-19-2023 Follow-up visit [id number] James Lóepz 1960 F Date Provider Department Center 01/19/2023 Ese-DANTE HAND [facility] Family History Problem Relation Age of Onset Other Mother Heart attack Father Other Father Other Father Other Maternal Grandmother Family Status - Relation Status Age at Mother Father Maternal Grandmother Level of Service:68404 AL OFFICE/OUTPATIENT ESTABLISHED LOW MDM 20-29 MIN Reason for Visit and Comments: Follow-up [791632] Hypertension [652741] Normal [facility] Neurosurgery Office/Clinic Yair pittman 12-22-2022 Neurosurgery Office/Clinic Note Chief Complaint back [...] 2 times per week. She follows with [facility] pain management which is a transition from [facility] pain management group. She continues [...] prior imaging. CT lumbar spine 10/14/2022 at [facility] reveals evidence of L3-5 decompression and [...] demonstrates normal respiratory effort [facility] with proper fit and alignment. This was removed at the time of today's visit for incision evaluation. Lumbosacral incision appears well-healed and without erythema, edema, drainage or warmth. She notes mild tenderness (more content not included)... Normal [facility] Neurosurgery Office/Clinic N zain 11-26-2022 Neurosurgery Office/Clinic [...] she recently transferred pain management care from [facility] to [facility]. Per the patient, they eventually would like her to initiate hot water physical therapy though only after receiving clearance from this office. Recent imaging (provider interpretation): CT lumbar spine 10/14/2022 at [facility] reveals evidence of L3-5 decompression and [...] demonstrates normal respiratory effort She presents in [facility] brace with proper fit and alignment. [...] lower extre (more content not included)... Normal [facility] Neurosurgery Office/Clinic N stephieon 10-15-2022 Neurosurgery Office/Clinic Note Chief Complaint post [...] (provider interpretation): CT lumbar spine 10/14/2022 at [facility] reveals evidence of L3-5 decompression and [...] Lumbar w/o (more content not included)... Normal [facility] Provider Letteron 10-15-2022 Provider Letter [facility] [address], [phone] [id number] Date: 10/15/2022 17:05:57 To Whom It May Concern: This is to verify that Stephan López was under our care on 10/15/2022 16:00:00. Stated patient underwent an L3-5 posterior spinal fusion on 08/21/22 with instrumentation utilizing Medtronic osteogrip titanium screws. If you have any questions or concerns please call our office at [phone]. Thank you, Dasha Waggoner PA-C [facility] Neurosurgery Office/Clinic Yair pittman 09-16-2022 Neurosurgery Office/Clinic Note Chief Complaint Patient [...] postoperative Lovenox dosing as recommended by her director of materials for strong family history of blood clots. [...] and manner are appropriate. She presents in [facility] lock brace which was removed at the [...] No redness (more content not included)... Normal [facility] Inpatient Clinical Summaryon 08-24-2022 Inpatient Clinical Summary [address] [address] Clinical Summary Person Information Name: Stephan López Age: 62 Years : 1960 Sex: Female PCP: Marital Status: Phone: PCP: Race: White Ethnicity: Not or Language: Russian Visit Id: Visit Reason: Speciality: Acuity: Enc Type: Inpatient Med Service: Surgery Arrival: 08/21/2022 06:28:12 Discharge: Dispo Type: Address: [address] [place] [phone] Diagnosis: 1:Lumbar stenosis with neurogenic claudication; 2:Spondylolisthesis, [...] range between ( 27.2 and 40.8 ) [place] Auto: 8.9 % -- Normal range between [...] range between ( 36.0 and 46.0 ) [place] Absolute: 1.8 x10 MCH: 31.8 pg -- [...] [facility] New Medications [id number], [address], [place] [id number], [phone] ascorbic acid (ascorbic acid 500 mg oral [...] magnesium hydroxi (more content not included)... Normal [facility] Neurosurgery Progress Noteon 08-24-2022 Neurosurgery Progress [...] Date: 08/27/22 7:59:00 EDT, Dispense From Location: [id number]-VIE-7A, Prophylaxis- Pre/Post-Op, 08/24/22 7:40:00 EDT scopolamine, 1 patches, TD, Film-ER, q72hr, First Dose: 08/24/22 7:40:00 EDT, Dispense From [facility], 08/24/22 7:40:00 EDT traMADol, 100 mg, Oral, Tab, q4hr, PRN severe pain [7-10 on pain scale], First Dose: 08/23/22 9:04:00 EDT, Dispense From Location: Ezwupyi-DPI-2W, 08/23/22 9:04:00 EDT traMADol, 50 mg, Oral, Tab, q4hr, PRN moderate pain [4-6 on pain scale], First Dose: 08/23/22 9:04:00 EDT, Dispense From Location: [id number]-LJR-2W, 08/23/22 9:04:00 EDT Surgical Drains Subjective: Patient [...] MD, Delfino Freeman 08/24/22 07:45 EDT Normal [facility] Neurosurgery Progress Noteon 08-23-2022 Neurosurgery Progress [...] Dose: 08/23/22 9:04:00 EDT, Dispense From Location: [address], 08/23/22 9:04:00 EDT traMADol, 50 mg, Oral, Tab, q4hr, PRN moderate pain [4-6 on pain scale], First Dose: 08/23/22 9:04:00 EDT, Dispense From Location: Qgixgnb-JXN-1U, 08/23/22 9:04:00 EDT Surgical Drains Subjective: Patient [...] Electronically signed by Tylor KAMARA MD, Delfino [place] 08/23/22 09:14 EDT Normal [facility] POC Glucose Randomon 023 Glucose [Mass/Vol] 114 mg/dL High 70-99 [facility] Comment on above: Performed By: #### C D:[id number] ####[facility] [place] [address] Glucose [Mass/Vol] 114 mg/dL High 70-99 [facility] Comment on above: Performed By: #### C [id number] #### [facility] [address] [place] [address] .eGFRon 08-22-2022 GFR/1.73 sq M.predicted MDRD (S/P/Bld) [Vol rate/Area] mL/min/{1.73_m2} Normal >=60 [facility] Comment on above: Result Comment: [facility] have implemented the eGFR calculation [...] = years Performed By: #### E GFR ####[facility] [place] [address] Basic Metabolic Profileon Anion gap [Moles/Vol] 12 mmol/L Normal 7-17 [facility] Comment on above: Performed By: #### C [id number] #### [facility] [address] [place] [address] Calcium [Mass/Vol] 8.5 mg/dL Normal 8.5-10.3 [facility] Comment on above: Performed By: #### C [id number] #### [facility] [address] [place] [address] Chloride [Moles/Vol] 101 mmol/L Normal 98-110 [facility] Comment on above: Performed By: #### C D:[id number] #### [facility] [address] [place] [address] CO2 [Moles/Vol] 25 mmol/L Normal 22-32 [facility] Comment on above: Performed By: #### C [id number] #### [address] [address] Creatinine [Mass/Vol] 0.76 mg/dL Normal 0.44-1.03 [facility] Comment on above: Performed By: #### C D:[id number] #### [address] [address] Glucose [Mass/Vol] 116 mg/dL High 70-99 [facility] Comment on above: Performed By: #### C D:[id number] #### [address] [address] Potassium [Moles/Vol] 4.2 mmol/L Normal 3.4-4.8 [facility] Comment on above: Performed By: #### C D:[id number] #### [address] [address] Sodium [Moles/Vol] 134 mmol/L Normal 133-142 [facility] Comment on above: Performed By: #### C D:[id number] #### [address] [address] Urea nitrogen [Mass/Vol] 10 mg/dL Normal 8-26 [facility] Comment on above: Performed By: #### C D:[id number] #### [address] [address] Urea nitrogen/Creatinine [Mass ratio] 13.2 mg/mg Normal 10.0-20.0 [facility] Comment on above: Performed By: #### C D:[id number] #### [address] [address] CBC w/ Diffon 08-22-2022 Erythrocyte distribution width (RBC) [Ratio] 13.5 % Normal 11.6-14.8 [facility] Comment on above: Performed By: #### C BC ####[address] [address] Hematocrit (Bld) [Volume fraction] 36.3 % Normal 36.0-46.0 [facility] Comment on above: Performed By: #### C BC ####[place] [id number] Hemoglobin (Bld) [Mass/Vol] 12.2 g/dL Normal 12.0-16.0 [facility] Comment on above: Performed By: #### C BC ####[place] [id number] MCH (RBC) [Entitic mass] 31.8 pg Normal 27.0-35.0 [facility] Comment on above: Performed By: #### C BC ####[place] [address] MCHC 33.5 % Normal 31.0-37.0 [facility] Comment on above: Performed By: #### C BC ####[place] [id number] MCV (RBC) [Entitic vol] 94.9 fL Normal 80.0-100.0 [facility] Comment on above: Performed By: #### C BC ####[place] [id number] Platelet 282 x10*3/mcL Normal 150-450 [facility] Comment on above: Performed By: #### C BC ####[place] [id number] Platelet mean volume (Bld) [Entitic vol] 9.0 fL Normal 6.7-10.6 [facility] Comment on above: Performed By: #### C BC ####[place] [id number] RBC 3.82 x10*6/mcL Normal 3.80-5.20 [facility] Comment on above: Performed By: #### C BC ####[place] [id number] WBC 20.4 x10*3/mcL High 4.5-11.0 [facility] Comment on above: Performed By: #### C BC ####[place] [address] [place] [address] Diff Autoon 08-22-2022 Baso Absolute 0.1 x10*3/mcL Normal 0.0-0.2 [facility] Comment on above: Performed By: #### C D:[id number] #### [address] [address] Basophils/100 WBC (Bld) 0.4 % Normal 0.0-1.5 [facility] Comment on above: Performed By: #### C D:[id number] #### [address] [address] Eos Absolute 0.0 x10*3/mcL Normal 0.0-0.4 [facility] Comment on above: Performed By: #### C D:[id number] #### [address] [address] Eosinophils/100 WBC (Bld) 0.1 % Normal 0.0-5.4 [facility] Comment on above: Performed By: #### C D:[id number] #### [address] [address] Lymph Absolute 2.4 x10*3/mcL Normal 1.0-4.8 [facility] Comment on above: Performed By: #### C D:[id number] #### [address] [address] Lymphocytes/100 WBC (Bld) 11.6 % Low 27.2-40.8 [facility] Comment on above: Performed By: #### C D:[id number] #### [address] [address] [place] Absolute 1.8 x10*3/mcL High 0.1-1.1 [facility] Comment on above: Performed By: #### C D:[id number] #### [address] [address] Monocytes/100 WBC (Bld) 8.9 % Normal 3.7-11.9 [facility] Comment on above: Performed By: #### C D:[id number] #### [place] [id number] [place] [address] Neutro Absolute 16.1 x10*3/mcL High 1.8-7.7 [facility] Comment on above: Performed By: #### C [id number] #### [address] [address] Neutro Auto 79.0 % High 47.2-70.8 [facility] Comment on above: Performed By: #### C D:[id number] #### [address] [address] Neurosurgery Progress Noteon 08-22-2022 Neurosurgery Progress Note [...] mg, Oral, qAM baclofen, 5 mg, Oral, [id number] Times bisacodyl, 10 mg= 1 supp, Rectal, [...] Dose: 08/21/22 17:00:00 EDT, Dispense From Location: [address], 08/21/22 16:37:00 EDT baclofen, 5 mg, Oral, Tab, [id number] Times, First Dose: 08/21/22 22:00:00 EDT, Dispense From Location: [address], 08/21/22 16:37:00 EDT bisacodyl, 10 mg, Rectal, Supp, Once, First Dose: 08/22/22 6:59:00 EDT, Stop Date: 08/22/22 6:59:00 EDT, Dispense From Location: [address], 08/22/22 6:59:00 EDT bisacodyl, 10 mg, Rectal, Supp, Daily, PRN constipation, First Dose: 08/22/22 9:00:00 EDT, Dispense From Location: [address], 08/22/22 9:00:00 EDT ceFAZolin, 2 g, IV Piggyback, Soln-IV, q8hr, infuse over 30 minutes, First Dose: 08/21/22 20:00:00 EDT, Dispense From Location: [address], Prophylaxis- Pre/Post-Op, 08/21/22 20:00:00 EDT docusate, 100 mg, Oral, Cap, BID, First Dose: 08/21/22 21:00:00 EDT, Dispense From Location: [address], 08/21/22 16:37:00 EDT ferrous sulfate, 325 mg, Oral, Tab, BID, First Dose: 08/21/22 21:00:00 EDT, Dispense From Location: [address], 08/21/22 16:37:00 EDT hydrALAZINE, 10 mg, IV Push, Injection, q10min, PRN hypertension, First Dose: 08/21/22 16:37:00 EDT, Dispense From Location: [address], 08/21/22 16:37:00 EDT labetalol, 10 mg, IV Push, Injection, q10min, PRN hypertension, First Dose: 08/21/22 16:37:00 EDT, Dispense From Location: [address], 08/21/22 16:37:00 EDT magnesium hydroxide, 30 mL, Oral, Susp, TID, First Dose: 08/21/22 22:00:00 EDT, Dispense From Location: [address], 08/21/22 16:37:00 EDT multivitamin with minerals, 1 tabs, Oral, Tab, Daily, First Dose: 08/22/22 9:00:00 EDT, Dispense From Location: [address], 08/21/22 16:37:00 EDT ondansetron, 4 mg, IV Push, Injection, q6hr, PRN nausea/vomiting, First Dose: 08/21/22 15:08:00 EDT, Dispense From Location: [facility], 08/21/22 15:08:00 EDT oxyCODONE-acetaminophe n, 1 tabs, Oral, Tab, q4hr, PRN moderate pain [4-6 on pain scale], First Dose: 08/21/22 16:37:00 EDT, Dispense From Location: [address], 08/21/22 16:37:00 EDT oxyCODONE-acetaminophe n, 2 tabs, Oral, Tab, q4hr, PRN severe pain [7-10 on pain scale], First Dose: 08/21/22 16:37:00 EDT, Dispense From Location: [address], 08/21/22 16:37:00 EDT sodium chloride, 10 mL, IV Push, Injection, As Indicated, PRN flush, First Dose: 08/21/22 16:37:00 EDT, Dispense From Location: [address], 08/21/22 16:37:00 EDT ADA Diet Ambulate Basic Metabolic Profile Blood Glucose Monitoring POC Cinch Loc Brace (EXOS Brace) Consult to Artificial Plastic Eye Maker Incentive Spirometry Nursing to Encourage Intake and Output Mechanical Compression Device Neurological Checks Notify Provider Occupational Therapy Evaluation and Treatment Inpatient Oxygen Therapy Peripheral IV Insert and Maintain Physical Therapy Evaluation and Treatment Inpatient Pulse Oximetry Continuous Pulse Oximetry Continuous Resuscitation Status Straight Catheter Straight (more content not included)... Normal [facility] POC Glucose Randomon 023 Glucose [Mass/Vol] 124 mg/dL High 70-99 [facility] Comment on above: Performed By: #### C [id number] #### [facility] [address] [place] [address] Glucose [Mass/Vol] 120 mg/dL High 70-99 [facility] Comment on above: Performed By: #### C [id number] ####[facility] [place] [address] Neurosurgery Progress Noteon 08-21-2022 Neurosurgery Progress Note [...] ceFAZolin, 2 g= 50 mL, IV Piggyback, Watchmaking Teacher Dilaudid, 0.5 mg= 0.5 mL, IV Push, q15min, PRN diphenhydrAMINE, 25 mg= 0.5 mL, IV Push, q6hr, PRN fentaNYL, 50 mcg= 1 mL, IV Push, q5min, PRN fentaNYL CASHIER OFFICE, 300 mcg= 30 mL, IV CASHIER OFFICE, [id number] Times, PRN lisinopril, 2.5 mg, Oral, Daily [...] Dose: 08/21/22 9:00:00 EDT, Dispense From Location: 2can, 08/21/22 6:35:00 EDT ceFAZolin, 2 g, IV Piggyback, Soln-IV, Watchmaking Teacher, infuse over 30 minutes, First Dose: 08/21/22 0:15:00 EDT, Dispense From Location: [id number]-[id number]-VL, Prophylaxis- Pre/Post-Op, 08/21/22 0:15:00 EDT diphenhydrAMINE, 25 mg, IV Push, Injection, q6hr, PRN itching, First Dose: 08/21/22 15:08:00 EDT, Dispense From Location: [id number]-XNE-WE, 08/21/22 15:08:00 EDT fentaNYL, 300 30 mcg mL, IV CASHIER OFFICE, Loading Dose (mcg): 25, CASHIER OFFICE Dose (mcg): 10, Lockout Interval (min): 8, Continuous Dose (mcg/hr): 25, 4-Hour Limit (mcg): 300, 2.5 mL/hr, pain PRN, Start Date: 08/21/22 15:08:00 EDT, Dispense From Location: [facility], 07/25... lisinopril, 2.5 mg, Oral, Tab, Daily, First Dose: 08/21/22 9:00:00 EDT, Dispense From Location: 2can, 08/21/22 6:35:00 EDT metFORMIN, 500 mg, Oral, Tab, BID, First Dose: 08/21/22 9:00:00 EDT, Dispense From Location: 2can, 08/21/22 6:35:00 EDT nalbuphine, 2.5 mg, IV Push, Injection, q6hr, PRN refractory itching, First Dose: 08/21/22 15:08:00 EDT, Dispense From Location: [facility], 08/21/22 15:08:00 EDT omeprazole, 40 mg, Oral, Cap-DR, Daily, First Dose: 08/21/22 7:00:00 EDT, Dispense From Location: 2can, 08/21/22 6:35:00 EDT ondansetron, 4 mg, IV Push, Injection, q6hr, PRN nausea/vomiting, First Dose: 08/21/22 15:08:00 EDT, Dispense From Location: [facility], 08/21/22 15:08:00 EDT pregabalin, 100 mg, Oral, Cap, BID, First Dose: 08/21/22 9:00:00 EDT, Dispense From Location: [facility], 08/21/22 6:35:00 EDT Admit to Inpatient Communication [...] Snider III, MD 08/21/22 15:45 EDT Normal [facility] Operative Reporton 3 Operative Report Indication [...] cyst left L4-5; computer-assisted hardware placement using Sporterpilotalth station and [employer] O-arm Surgeon(s) Delfino Snider III, MD (Surgeon - Primary) Zoning Technician Dasha Waggoner PA-C (Formula Mixer) Anesthesia General Opal BOWIE, Maulik Padron (Crm Coordinator) Koko Eugene (Provider) Estimated Blood Loss 300.0 [...] is secured. Patient is carefully turned onto [facility] operating room table and head and neck [...] spinous pro (more content not included)... Normal [facility] POC Glucose Randomon 023 Glucose [Mass/Vol] 152 mg/dL High 70-99 [facility] Comment on above: Performed By: #### C [id number] #### [address] [address] Glucose [Mass/Vol] 206 mg/dL High 70-99 [facility] Comment on above: Performed By: #### C [id number] #### [address] [address] Glucose [Mass/Vol] 179 mg/dL High 70-99 [facility] Comment on above: Performed By: #### C D:[id number] ####[address] [address] XR Spine Lumbosacral 4 Views + in [...] Electronically Signed in Other Vendor System) Normal [facility] Provider Letteron 08-11-2022 Provider Letter Gayla Martinez, GAUR[address] [place] [address] Re: Stephan López Date of Visit: 08/10/2022 Dear Gayla Martinez OIL FIRE SPECIALIST, Let me know if you have any questions or concerns. Sincerely, Lin Cintron Providers: [CC Letter Providers Please see attached lab results The following document(s) were included in the letter: August 10, 2022 13:56:47 EDT - (08/10/2022) Reminder Message Normal [facility] .UA Microscp Aon 08-10-2022 UA Hyline Cast Qual 3-5 Normal Negative [facility] Comment on above: Performed By: #### C D:[id number] #### [address] [address] UA Mucus Present Abnormal Absent [facility] Comment on above: Performed By: #### C D:[id number] #### [address] [address] UA RBC Quant 0 /HPF Normal 0-5 [facility] Comment on above: Performed By: #### C D:[id number] #### [address] [address] UA Squepi Cells Quant 2 /HPF Normal 0-29 [facility] Comment on above: Performed By: #### C D:[id number] #### [address] [address] UA WBC Quant 0 /HPF Normal 0-5 [facility] Comment on above: Performed By: #### C D:[id number] #### [address] [address] .eGFRon 08-10-2022 GFR/1.73 sq M.predicted MDRD (S/P/Bld) [Vol rate/Area] mL/min/{1.73_m2} Normal >=60 [facility] Comment on above: Result Comment: [facility] have implemented the eGFR calculation [...] = years Performed By: #### E GFR ####[place] [address] ABO/Rhon 08-10-2022 ABO/Rh ABO/Rh: O NEG Normal [facility] Comment on above: Performed By: #### A BORH ####[place] [address] ABSC Autoon 08-10-2022 ABSC Auto Negative Normal [facility] Comment on above: Performed By: #### A SA ####[place] [id number] CBC w/ Diffon 08-10-2022 Erythrocyte distribution width (RBC) [Ratio] 13.3 % Normal 11.6-14.8 [facility] Comment on above: Performed By: #### C D:[id number] #### [place] [id number] Hematocrit (Bld) [Volume fraction] 44.0 % Normal 36.0-46.0 [facility] Comment on above: Performed By: #### C D:[id number] #### [address] [address] Hemoglobin (Bld) [Mass/Vol] 15.0 g/dL Normal 12.0-16.0 [facility] Comment on above: Performed By: #### C D:[id number] #### [address] [address] MCH (RBC) [Entitic mass] 32.6 pg Normal 27.0-35.0 [facility] Comment on above: Performed By: #### C D:[id number] #### [address] [address] MCHC 34.0 % Normal 31.0-37.0 [facility] Comment on above: Performed By: #### C D:[id number] #### [address] [address] MCV (RBC) [Entitic vol] 95.8 fL Normal 80.0-100.0 [facility] Comment on above: Performed By: #### C D:[id number] #### [address] [address] Platelet 298 x10*3/mcL Normal 150-350 [facility] Comment on above: Performed By: #### C D:[id number] #### [address] [address] Platelet mean volume (Bld) [Entitic vol] 10.1 fL Normal 6.7-10.6 [facility] Comment on above: Performed By: #### C D:[id number] #### [address] [address] RBC 4.59 x10*6/mcL Normal 3.80-5.20 [facility] Comment on above: Performed By: #### C D:[id number] #### [place] [address] [place] [address] WBC 12.9 x10*3/mcL High 4.5-11.0 [facility] Comment on above: Performed By: #### C D:[id number] #### [address] [address] CMPon 08-10-2022 Albumin [Mass/Vol] 4.4 g/dL Normal 3.2-4.9 [facility] Comment on above: Performed By: #### C OMP ####[address] [address] Albumin/Globulin [Mass ratio] 1.4 {ratio} Normal 1.1-2.2 [facility] Comment on above: Performed By: #### C OMP ####[address] [address] Alk Phos 75 IU/L Normal 32-91 [facility] Comment on above: Performed By: #### C OMP ####[address] [address] ALT [Catalytic activity/Vol] 14 U/L Normal 14-54 [facility] Comment on above: Performed By: #### C OMP ####[address] [address] Anion gap [Moles/Vol] 13 mmol/L Normal 7-17 [facility] Comment on above: Performed By: #### C OMP ####[address] [address] AST [Catalytic activity/Vol] 20 U/L Normal 15-41 [facility] Comment on above: Performed By: #### C OMP ####[address] [address] Bili Total 0.6 mg/dL Normal 0.3-1.2 [facility] Comment on above: Performed By: #### C OMP ####[address] [address] Calcium [Mass/Vol] 9.3 mg/dL Normal 8.5-10.3 [facility] Comment on above: Performed By: #### C OMP ####[address] [address] Chloride [Moles/Vol] 103 mmol/L Normal 98-110 [facility] Comment on above: Performed By: #### C OMP ####[address] [address] CO2 [Moles/Vol] 24 mmol/L Normal 22-32 [facility] Comment on above: Performed By: #### C OMP ####[address] [address] Creatinine [Mass/Vol] 0.85 mg/dL Normal 0.44-1.03 [facility] Comment on above: Performed By: #### C OMP ####[address] [address] Glucose [Mass/Vol] 108 mg/dL High 70-99 [facility] Comment on above: Performed By: #### C OMP ####[address] [address] Potassium [Moles/Vol] 3.7 mmol/L Normal 3.4-4.8 [facility] Comment on above: Performed By: #### C OMP ####[address] [address] Protein [Mass/Vol] 7.5 g/dL Normal 6.5-8.1 [facility] Comment on above: Performed By: #### C OMP ####[address] [address] Sodium [Moles/Vol] 136 mmol/L Normal 133-142 [facility] Comment on above: Performed By: #### C OMP ####[address] [address] Urea nitrogen [Mass/Vol] 15 mg/dL Normal 8-26 [facility] Comment on above: Performed By: #### C OMP ####[address] [address] Urea nitrogen/Creatinine [Mass ratio] 17.6 mg/mg Normal 10.0-20.0 [facility] Comment on above: Performed By: #### C OMP ####[address] [address] Diff Autoon 08-10-2022 Baso Absolute 0.1 x10*3/mcL Normal 0.0-0.2 [facility] Comment on above: Performed By: #### . Automated Diff ####[address] [address] Basophils/100 WBC (Bld) 0.4 % Normal 0.0-1.5 [facility] Comment on above: Performed By: #### . Automated Diff ####[address] [address] Eos Absolute 0.1 x10*3/mcL Normal 0.0-0.4 [facility] Comment on above: Performed By: #### . Automated Diff ####[address] [address] Eosinophils/100 WBC (Bld) 0.9 % Normal 0.0-5.4 [facility] Comment on above: Performed By: #### . Automated Diff ####[address] [address] Lymph Absolute 3.8 x10*3/mcL Normal 1.0-4.8 [facility] Comment on above: Performed By: #### . Automated Diff ####[address] [address] Lymphocytes/100 WBC (Bld) 29.6 % Normal 27.2-40.8 [facility] Comment on above: Performed By: #### . Automated Diff ####[address] [address] [place] Absolute 0.8 x10*3/mcL Normal 0.1-1.1 [facility] Comment on above: Performed By: #### . Automated Diff ####[address] [address] Monocytes/100 WBC (Bld) 5.9 % Normal 3.7-11.9 [facility] Comment on above: Performed By: #### . Automated Diff ####[place] [address] [place] [address] Neutro Absolute 8.1 x10*3/mcL High 1.8-7.7 [facility] Comment on above: Performed By: #### . Automated Diff ####[address] [address] Neutro Auto 63.2 % Normal 47.2-70.8 [facility] Comment on above: Performed By: #### . Automated Diff ####[address] [address] HbA1c w/Rflx Fructosamineon 08-10-2022 Glucose [Mass/Vol] 128 mg/dL High 68-114 [facility] Comment on above: Result Comment: Math ematical Calc approx. The mean gluc equivalency of A1c Performed By: #### C D:[id number] #### [place] [id number] Hgb A1c 6.1 % A1c High 4.0-5.6 [facility] Comment on above: Result Comment: Refe rence Range: 4.0 - 5.6 % Normal 5.7 - 6.4 % Pre-Diabetes > 6.5 % Diabetes Performed By: #### C D:[id number] #### [address] [address] PTon 08-10-2022 INR Coag (PPP) [Relative time] 1.0 {INR} Normal <=3.5 [facility] Comment on above: Result Comment: INR has no normal range. INR Therapeutic range is: 2.0-3.0 (AF, CVA, TIAs, DVT prophylaxis, acute DVT) 2.5-3.5 [facility]oli[facility] Performed By: #### C D:[id number] #### [address] [address] PT Coag (PPP) [Time] 10.7 s Normal 9.3-11.9 [facility] Comment on above: Performed By: #### C D:[id number] #### [facility] [address] [place] [address] PTTon 08-10-2022 aPTT Coag (Bld) [Time] 20.9 s Normal 20.6-29.2 [facility] Comment on above: Performed By: #### P TT ####[address] [address] Provider Letteron 08-10-2022 Provider Letter Gayla Martinez CNP [address] [place] [address] Re: Stephanflavio López Date of Visit: 08/10/2022 Dear Gayla Martinez CNP, Let me know if you have any questions or concerns. Sincerely, Lin Cintron Providers: [CC Letter Providers Please see attached lab results The following document(s) were included in the letter: August 10, 2022 13:04:48 EDT - (08/10/2022) Reminder Message Normal [facility] Provider Letter Gayla Martinez CNP [address] [place] [address] Re: Stephanflavio López Date of Visit: 08/10/2022 Dear Gayla Martinez CNP, Let me know if you have any questions or concerns. Sincerely, Lin Cintron Providers: [CC Letter Providers Please see attached ECG results The following document(s) were included in the letter: August 10, 2022 13:05:57 EDT - (08/10/2022) Reminder Message Normal [facility] UA w Culture if Indon 2022 Color (U) Yellow Normal [facility] Comment on above: Performed By: #### U CI ####[address] [address] Ketones Ql (U) Negative Normal Negative [facility] Comment on above: Performed By: #### U CI ####[address] [place] [address] UA Blood Negative Normal Negative [facility] Comment on above: Performed By: #### U CI ####[address] [place] [address] UA Clarity Clear Normal [facility] Comment on above: Performed By: #### U CI ####[address] [place] [address] UA Glucose Normal Normal Negative [facility] Comment on above: Performed By: #### U CI ####[address] [address] UA Leukocyte Esterase Negative Normal Negative [facility] Comment on above: Performed By: #### U CI ####[address] [address] UA Nitrite Negative Normal Negative [facility] Comment on above: Performed By: #### U CI ####[address] [place] [address] UA pH 5.0 Normal 4.5 - 7.8 [facility] Comment on above: Performed By: #### U CI ####[address] [address] UA Protein 10 mg/dL Normal Negative [facility] Comment on above: Performed By: #### U CI ####[address] [address] UA Source Clean Catch Normal [facility] Comment on above: Performed By: #### U CI ####[address] [address] UA Spec Grav 1.025 Normal 1.003-1.035 [facility] Comment on above: Performed By: #### U CI ####[address] [address] UA Urobilinogen Normal Normal 0.2 - 1.0 [facility] Comment on above: Performed By: #### U CI ####[address] [address] Urobilinogen (U) [Mass/Vol] Negative Normal Negative [facility] Comment on above: Performed By: #### U CI ####[facility] [place] [address] XR Chest 2 Viewson 3 XR Chest [...] Electronically Signed in Other Vendor System) Normal [facility] Neurosurgery Office/Clinic N oteon 07-23-2022 Neurosurgery Office/Clinic Note Chief Complaint Patient is being seen for a back follow up. History of Present Illness The patient is a pleasant 62-year-old right-handed female with history of fmz-gvaohvk-jsdkdlcbj diabetes mellitus diagnosed in 2009, chronic nicotine [...] (provider interpretation): MRI cervical spine 05/29/2022 at [facility] reveals multilevel degenerative disc disease, most [...] overt instability. MRI lumbar spine 04/29/2022 at [facility] reveals multilevel degenerative disc disease. Significant [...] there is (more content not included)... Normal [facility] Neurosurgery Office/Clinic Note Chief Complaint Patient [...] Sibling. I (more content not included)... Normal [facility] Office Visiton 07-03-2022 Follow-up visit [id number] James López 1960 F Date Provider Department Center [facility]20[facility] Problem Relation Age of Onset Other Mother Heart attack Father Other Father Other Father Other Maternal Grandmother Family Status - Relation Status Age at Mother Father Maternal Grandmother Level of Service:52192 AL OFFICE/OUTPATIENT ESTABLISHED LOW [facility] 20-29 MIN Reason for Visit and Comments: Hypertension [095697] pericardial effusion [Other] Normal [facility] Neurosurgery Office/Clinic N oteon 06-24-2022 Neurosurgery Office/Clinic Note Chief Complaint Patient is being seen for a back follow up. History of Present Illness The patient is a pleasant 62-year-old right-handed female with history of fot-hsaodym-aqwsmcahb diabetes mellitus diagnosed in 2009, chronic nicotine [...] (provider interpretation): MRI cervical spine 05/29/2022 at [facility] reveals multilevel degenerative disc disease, most [...] overt instability. MRI lumbar spine 04/29/2022 at [facility] reveals multilevel degenerative disc disease. Significant [...] measuring appro (more content not included)... Normal [facility] PROF CHEM 8 (BAS METB)on Anion gap [Moles/Vol] 12.9 mmol/L Normal [facility] Comment on above: Performed By: #### C BC #### [facility] [address] [place] [address] Dr. Yariel Herrera Calcium [Mass/Vol] 9.0 mg/dL Normal 8.5-10.1 [facility] Comment on above: Performed By: #### C BC #### [facility] [address] [place] [address] Dr. Yariel Herrera Chloride [Moles/Vol] 106 mmol/L Normal 98-107 [facility] Comment on above: Performed By: #### C BC #### [facility] [address] [place] [address] [address] Yariel Herrera CO2 [Moles/Vol] 28.3 mmol/L Normal 21.0-32.0 [facility] Comment on above: Performed By: #### C BC #### [facility] [address] [place] [address] Dr. Yariel Herrera Creatinine [Mass/Vol] 0.81 mg/dL Normal 0.55-1.02 [facility] Comment on above: Performed By: #### C BC #### [facility] [address] [place] [address] Dr. Yariel Herrera EGFR-AF DUTCH >60 Normal >=60 [facility] Comment on above: Performed By: #### C BC #### [facility] [address] [place] [address] Dr. Yariel Herrera EGFR-NON AF DUTCH >60 Normal >=60 [facility] Comment on above: Performed By: #### C BC #### [facility] [address] [place] [address] Dr. Yariel Herrera Glucose [Mass/Vol] 103 mg/dL Normal 74-106 [facility] Comment on above: Performed By: #### C BC #### [facility] [address] [place] [address] Dr. Yariel Herrera Potassium [Moles/Vol] 4.2 mmol/L Normal 3.5-5.1 [facility] Comment on above: Performed By: #### C BC #### [facility] [address] [place] [address] Dr. Yariel Herrera Sodium [Moles/Vol] 143 mmol/L Normal 136-145 [facility] Comment on above: Performed By: #### C BC #### [facility] [address] [place], [place] [address] Dr. Yariel Herrera Urea nitrogen [Mass/Vol] 9.0 mg/dL Normal 7.0-18.0 [facility] Comment on above: Performed By: #### C BC #### [facility] [address] [place], [place] [address] Dr. Yariel Herrera Urea nitrogen/Creatinine [Mass ratio] 11.1 mg/mg Normal [facility] Comment on above: Performed By: #### C BC #### [facility] [address] [place], [place] [address] Dr. Yariel Herrera 37on 06-10-2022 37 Start lisinopril 2.5 mg daily, Have labs/blood checked in 1 week for kidney function Monitor b/p at home 1-2 times/day and record on a log- bring with her to next visit. If you notice a dry, persistent cough- stop lisinopril and call office please. Normal [facility] Office Visiton 06-10-2022 Follow-up visit [id number] James López 1960 F Date Provider Department Center 06/10/2022 INA JONES [facility] Family History Problem Relation Age of Onset Other Mother Heart attack Father Other Father Other Father Other Maternal Grandmother Family Status - Relation Status Age at Mother Father Maternal Grandmother Level of Service:70581 AL OFFICE/OUTPATIENT ESTABLISHED MOD MDM 30-39 MIN [facility] ECHOCARDIO M/2D COMPLETEon 0 05-08-2022 ECHOCARDIO M/2D COMPLETE Patient: STEPHAN LÓPEZ. Exam Date: 05/08/2022 : 1960 Gender:F Ordering : CARL WILLIS Admission #: [id number] Family : GAURAV MARTINEZ [facility] Order #: [id number] CLICK HERE TO VIEW EXAM ECHOCARDIOGRAM REPORT [...] M.D. on 05/08/2022 at 14:20 Normal [facility] Neurosurgery Office/Clinic N magoteresa 05-05-2022 Neurosurgery Office/Clinic Note Chief Complaint Patient is being seen to review imaging. History of Present Illness The patient is a pleasant 61-year-old right-handed female with history of qxp-wqerdwi-hrpnqfvxf diabetes mellitus diagnosed in 2009, chronic nicotine [...] (provider interpretation): MRI lumbar spine 04/29/2022 at [facility] reveals multilevel degenerative disc disease. Significant [...] L5-S1. Additional imaging: DEXA scan 04/29/2022 at [facility] revealing osteopenia with T score -1.2. Review of Systems Constitutional: [No fevers, chills, sweats] Eye: [No recent visual problems] ENMT: [No ear pain, nasal conge (more content not included)... Normal [facility] Provider Letteron 05-05-2022 Provider Letter Gayla Martinez, GAURAV [address] [place] [phone] Re: Stephan López Date of Visit: 05/05/2022 Dear Gayla Martinez CNP, This patient was recently seen in the neurosurgical office. Please see attached note for further details. Let me know if you have any questions or concerns. Sincerely, MICHELLE Engle Providers: The following document(s) were included in the letter: May 05, 2022 15:17:18 EDT - (05/05/2022) Neurosurgery Office Visit Note Normal [facility] ABHINAV by IFAon 01-08-2022 Antinuclear Antibodies, IFA Negative Normal [facility] Comment on above: Result Comment: Nega tive <1:80 Borderline 1:80 Positive >1:80 ICAP nomenclature: AC-0 For more information about Hep-2 cell patterns use ANApatterns.org, the official website for the International Consensus on Antinuclear Antibody (ABHINAV) Patterns (ICAP). Performed By: #### A NAIFA #### [facility] [address] [place] [address] Dr. Yariel Herrera CBC AUTO DIFFon 01-05-2022 BASO # 0.1 103/ul Normal 0.0-0.1 [facility] Comment on above: Performed By: #### C BC #### [facility] [address] [place] [address] Dr. Yariel Herrera Basophils/100 WBC (Bld) 0.6 % Normal 0.2-2.0 [facility] Comment on above: Performed By: #### C BC #### [facility] [address] [place] [address] Dr. Yariel Herrera EO # 0.2 103/ul Normal 0.0-0.7 [facility] Comment on above: Performed By: #### C BC #### [facility] [address] [place] [address] Dr. Yariel Herrera Eosinophils/100 WBC (Bld) 1.4 % Normal 0.9-7.0 [facility] Comment on above: Performed By: #### C BC #### [facility] [address] [place] [address] Dr. Yariel Herrera Erythrocyte distribution width (RBC) [Ratio] 13.6 % Normal 11.0-15.0 [facility] Comment on above: Performed By: #### C BC #### [facility] [address] [place] [address] Dr. Yariel Herrera Hematocrit (Bld) [Volume fraction] 46.6 % Normal 36.0-48.0 [facility] Comment on above: Performed By: #### C BC #### [facility] [address] [place] [address] Dr. Yariel Herrera Hemoglobin (Bld) [Mass/Vol] 15.4 g/dL Normal 12.0-16.0 [facility] Comment on above: Performed By: #### C BC #### [facility] [address] [place] [address] Dr. Yariel Herrera IG # 0.03 10e3/ul Normal 0.00-0.03 [facility] Comment on above: Performed By: #### C BC #### [facility] [address] [place] [address] Dr. Yariel Herrera IG % 0.2 % Normal 0.0-0.5 [facility] Comment on above: Performed By: #### C BC #### [facility] [address] [place] [address] Dr. Yariel Herrera LYMPH # 4.2 103/ul Critically high 1.2-3.8 [facility] Comment on above: Performed By: #### C BC #### [facility] [address] [place] [address] Dr. Yariel Herrera Lymphocytes/100 WBC (Bld) 31.3 % Normal 20.5-60.0 [facility] Comment on above: Performed By: #### C BC #### [facility] [address] [place] [address] Dr. Yariel Herrera MANUAL DIFF REQ NO Normal [facility] Comment on above: Performed By: #### C BC #### [facility] [address] [place] [address] Dr. Yariel Herrera MCH (RBC) [Entitic mass] 31.6 pg Normal 26.7-34.0 [facility] Comment on above: Performed By: #### C BC #### [facility] [address] [place] [address] [address] Yariel Herrera MCHC (RBC) [Mass/Vol] 33.0 g/dL Normal 29.9-35.2 [facility] Comment on above: Performed By: #### C BC #### [facility] [address] [place] [address] Dr. Yariel Herrera MCV (RBC) [Entitic vol] 95.7 fL Normal 81.0-99.0 [facility] Comment on above: Performed By: #### C BC #### [facility] [address] [place] [address] Dr. Yariel Herrera MONO # 0.9 103/ul Critically high 0.3-0.8 [facility] Comment on above: Performed By: #### C BC #### [facility] [address] [place] [address] Dr. Yariel Herrera Monocytes/100 WBC (Bld) 6.8 % Normal 1.7-12.0 [facility] Comment on above: Performed By: #### C BC #### [facility] [address] [place] [address] Dr. Yariel Herrera NEUT # 8.0 103/ul Critically high 1.4-6.5 [facility] Comment on above: Performed By: #### C BC #### [facility] [address] [place] [address] Dr. Yariel Herrera Neutrophils/100 WBC (Bld) 59.7 % Normal 43.0-75.0 [facility] Comment on above: Performed By: #### C BC #### [facility] [address] [place] [address] Dr. Yariel Herrera Platelet mean volume (Bld) [Entitic vol] 10.7 fL Normal 9.5-13.5 [facility] Comment on above: Performed By: #### C BC #### [facility] [address] [place] [address] Dr. Yariel Herrera PLT 340 103/ul Normal 150-450 [facility] Comment on above: Performed By: #### C BC #### [facility] [address] [place] [address] Dr. Yariel Herrera RBC 4.87 106/ul Normal 4.20-5.40 [facility] Comment on above: Performed By: #### C BC #### [facility] [address] [place] [address] Dr. Yariel Herrera WBC 13.4 103/ul Critically high 4.0-11.0 [facility] Comment on above: Performed By: #### C BC #### [facility] [address] [place] [address] Dr. Yariel Herrera FREE T4on 01-05-2022 Free T4 [Mass/Vol] 1.06 ng/dL Normal 0.76-1.46 [facility] Comment on above: Performed By: #### C BC #### [facility] [address] [place] [address] Dr. Yariel Herrera PROF 14(COMP METB)on 022 Albumin [Mass/Vol] 3.9 g/dL Normal 3.4-5.0 [facility] [facility] Comment on above: Performed By: #### C MP, TSH #### [facility] [address] [place] [address] Dr. Yariel Herrera Albumin/Globulin [Mass ratio] 1.1 {ratio} Normal [facility] Comment on above: Performed By: #### C MP, TSH #### [facility] [address] [place] [address] Dr. Yariel Herrera ALP [Catalytic activity/Vol] 99 U/L Normal 46-116 [facility] Comment on above: Performed By: #### C MP, TSH #### [facility] [address] [place] [address] Dr. Yariel Herrera ALT [Catalytic activity/Vol] 17 U/L Normal 14-59 [facility] Comment on above: Performed By: #### C MP, TSH #### [facility] [address] [address] [address] Yariel Herrera Anion gap [Moles/Vol] 10.1 mmol/L Normal [facility] Comment on above: Performed By: #### C MP, TSH #### [facility] [address] [address] [address] Yariel Herrera AST [Catalytic activity/Vol] 14 U/L Critically low 15-37 [facility] [place] Comment on above: Performed By: #### C MP, TSH #### [facility] [address] [place] [address] Dr. Yariel Herrera Bilirubin [Mass/Vol] 0.3 mg/dL Normal 0.2-1.0 [facility] Comment on above: Performed By: #### C MP, TSH #### [facility] [address] [place] [address] Dr. Yariel Herrera Calcium [Mass/Vol] 9.4 mg/dL Normal 8.5-10.1 [facility] Comment on above: Performed By: #### C MP, TSH #### [facility] [address] [place] [address] Dr. Yariel Herrera Chloride [Moles/Vol] 103 mmol/L Normal 98-107 [facility] Comment on above: Performed By: #### C MP, TSH #### [facility] [address] [place] [address] Dr. Yariel Herrera CO2 [Moles/Vol] 30.9 mmol/L Normal 21.0-32.0 [facility] Comment on above: Performed By: #### C MP, TSH #### [facility] [address] [place] [address] Dr. Yariel Herrera Creatinine [Mass/Vol] 0.88 mg/dL Normal 0.55-1.02 [facility] Comment on above: Performed By: #### C MP, TSH #### [facility] [address] [place] [address] Dr. Yariel Herrera EGFR-AF DUTCH >60 Normal >=60 [facility] Comment on above: Performed By: #### C MP, TSH #### [facility] [address] [place] [address] Dr. Yariel Herrera EGFR-NON AF DUTCH >60 Normal >=60 [facility] Comment on above: Performed By: #### C MP, TSH #### [facility] [address] [address] [address] Yariel Herrera Globulin (S) [Mass/Vol] 3.5 g/dL Normal [facility] Comment on above: Performed By: #### C MP, TSH #### [facility] [address] [address] [address] Yariel Herrera Glucose [Mass/Vol] 117 mg/dL Critically high 74-106 T [facility] Comment on above: Performed By: #### C MP, TSH #### [facility] [address] [place] [address] Dr. Yariel Herrera Potassium [Moles/Vol] 4.0 mmol/L Normal 3.5-5.1 [facility] Comment on above: Performed By: #### C MP, TSH #### [facility] [address] [place] [address] Dr. Yariel Herrera Protein [Mass/Vol] 7.4 g/dL Normal 6.4-8.2 [facility] Comment on above: Performed By: #### C MP, TSH #### [facility] [address] [place] [address] Dr. Yariel Herrera Sodium [Moles/Vol] 140 mmol/L Normal 136-145 [facility] Comment on above: Performed By: #### C MP, TSH #### [facility] [address] [place] [address] Dr. Yariel Herrera Urea nitrogen [Mass/Vol] 18.0 mg/dL Normal 7.0-18.0 [facility] Comment on above: Performed By: #### C MP, TSH #### [facility] [address] [place] [address] Dr. Yariel Herrera Urea nitrogen/Creatinine [Mass ratio] 20.5 mg/mg Normal [facility] Comment on above: Performed By: #### C MP, TSH #### [facility] [address] [place], [place] [id number] Dr. Yariel Herrera TSHon 01-05-2022 TSH 1.380 uIU/mL Normal 0.358-3.740 [facility] Comment on above: Performed By: #### C MP, TSH #### [facility] [address] [address] [address] Yariel Herrera GLYCOHEMOGLOBIN A1Con 2021 ADA RECOMMENDATION SEE BELOW Normal [facility] Comment on above: Result Comment: ADA RECOMMENDED LIMIT 4.0 - 6.0 ADA THERAPEUTIC TARGET < 7.0 ACTION SUGGESTED > 7.0 Performed By: #### A 1C #### [facility] [address] [address] [address] Yariel Herrera Glucose [Mass/Vol] 137 mg/dL Normal [facility] Comment on above: Performed By: #### A 1C #### [facility] [address] [place] [address] Dr. Yariel Herrera HbA1c (Bld) [Mass fraction] 6.4 % Critically high 4.5-6.2 [facility] Comment on above: Performed By: #### A 1C #### [facility] [address] [place] [address] Dr. Yariel Herrera ECHOCARDIO M/2D COMPLETEon 0 10-16-2021 ECHOCARDIO M/2D COMPLETE Patient: STEPHAN LÓPEZ Exam Date: 10/16/2021 : 1960 Gender:F Ordering : CARL WILLIS Admission #: [id number] Family : Order #: [id number] CLICK HERE TO VIEW EXAM ECHOCARDIOGRAM REPORT [...] Melvin M.D. on 10/16/2021 at 17:12 Normal [facility] ECHOCARDIO M/2D COMPLETEon 0 09-16-2021 ECHOCARDIO M/2D COMPLETE Patient: STEPHAN LÓPEZ Exam Date: 09/16/2021 : 1960 Gender:F Ordering : GAURAV MARTINEZ [facility] Admission #: [id number] Family : Order #: [id number] CLICK HERE TO VIEW EXAM ECHOCARDIOGRAM REPORT [...] M.D. on 09/17/2021 at 13:02 Normal [facility] CBC AUTO DIFFon 08-04-2021 BASO # 0.1 103/ul Normal 0.0-0.1 [facility] Comment on above: Performed By: #### C BC #### [facility] [address] [place] [address] Dr. Yariel Herrera Basophils/100 WBC (Bld) 0.6 % Normal 0.2-2.0 [facility] Comment on above: Performed By: #### C BC #### [facility] [address] [place] [address] Dr. Yariel Herrera EO # 0.1 103/ul Normal 0.0-0.7 [facility] Comment on above: Performed By: #### C BC #### [facility] [address] [place] [address] Dr. Yariel Herrera Eosinophils/100 WBC (Bld) 0.9 % Normal 0.9-7.0 [facility] Comment on above: Performed By: #### C BC #### [facility] [address] [place] [address] Dr. Yariel Herrera Erythrocyte distribution width (RBC) [Ratio] 13.8 % Normal 11.0-15.0 [facility] Comment on above: Performed By: #### C BC #### [facility] [address] [place] [address] Dr. Yariel Herrera Hematocrit (Bld) [Volume fraction] 47.1 % Normal 36.0-48.0 [facility] Comment on above: Performed By: #### C BC #### [facility] [address] [place] [address] Dr. Yariel Herrera Hemoglobin (Bld) [Mass/Vol] 15.2 g/dL Normal 12.0-16.0 [facility] Comment on above: Performed By: #### C BC #### [facility] [address] [place] [address] Dr. Yariel Herrera IG # 0.04 10e3/ul Critically high 0.00-0.03 [facility] Comment on above: Performed By: #### C BC #### [facility] [address] [place] [address] Dr. Yariel Herrera IG % 0.3 % Normal 0.0-0.5 [facility] Comment on above: Performed By: #### C BC #### [facility] [address] [place] [address] Dr. Yariel Herrera LYMPH # 3.7 103/ul Normal 1.2-3.8 [facility] Comment on above: Performed By: #### C BC #### [facility] [address] [place] [address] Dr. Yariel Herrera Lymphocytes/100 WBC (Bld) 30.6 % Normal 20.5-60.0 [facility] Comment on above: Performed By: #### C BC #### [facility] [address] [place] [address] Dr. Yariel Herrera MANUAL DIFF REQ NO Normal [facility] Comment on above: Performed By: #### C BC #### [facility] [address] [place] [address] Dr. Yariel Herrera MCH (RBC) [Entitic mass] 32.0 pg Normal 26.7-34.0 [facility] Comment on above: Performed By: #### C BC #### [facility] [address] [place] [address] Dr. Yariel Herrera MCHC (RBC) [Mass/Vol] 32.3 g/dL Normal 29.9-35.2 [facility] Comment on above: Performed By: #### C BC #### [facility] [address] [address] [address] Yariel Herrera MCV (RBC) [Entitic vol] 99.2 fL Critically high 81.0-99.0 [facility] Comment on above: Performed By: #### C BC #### [facility] [address] [address] [address] Yariel Herrera MONO # 0.9 103/ul Critically high 0.3-0.8 [facility] Comment on above: Performed By: #### C BC #### [facility] [address] [address] [address] Yariel Herrera Monocytes/100 WBC (Bld) 7.4 % Normal 1.7-12.0 [facility] Comment on above: Performed By: #### C BC #### [facility] [address] [place] [address] Dr. Yariel Herrera NEUT # 7.3 103/ul Critically high 1.4-6.5 [facility] Comment on above: Performed By: #### C BC #### [facility] [address] [place] [address] Dr. Yariel Herrera Neutrophils/100 WBC (Bld) 60.2 % Normal 43.0-75.0 [facility] Comment on above: Performed By: #### C BC #### [facility] [address] [address] [address] Yariel Herrera Platelet mean volume (Bld) [Entitic vol] 11.7 fL Normal 9.5-13.5 [facility] Comment on above: Performed By: #### C BC #### [facility] [address] [address] [address] Yariel Herrera PLT 330 103/ul Normal 150-450 [facility] Comment on above: Performed By: #### C BC #### [facility] [address] [place] [address] Dr. Yariel Herrera RBC 4.75 106/ul Normal 4.20-5.40 [facility] Comment on above: Performed By: #### C BC #### [facility] [address] [place] [address] Dr. Yariel Herrera WBC 12.1 103/ul Critically high 4.0-11.0 [facility] Comment on above: Performed By: #### C BC #### [facility] [address] [place] [address] Dr. Yariel Herrera FREE T3on 08-04-2021 FREE T3 2.46 pg/mlL Normal 2.18-3.98 [facility] Comment on above: Performed By: #### C BC #### [facility] [address] [place] [address] Dr. Yariel Herrera FREE T4on 08-04-2021 Free T4 [Mass/Vol] 1.08 ng/dL Normal 0.76-1.46 [facility] Comment on above: Performed By: #### F T4 #### [facility] [address] [place] [address] Dr. Yariel Herrera PROF 14(COMP METB)on 022 Albumin [Mass/Vol] 4.2 g/dL Normal 3.4-5.0 [facility] Comment on above: Performed By: #### C BC #### [facility] [address] [place] [address] Dr. Yariel Herrera Albumin/Globulin [Mass ratio] 1.2 {ratio} Normal [facility] Comment on above: Performed By: #### C BC #### [facility] [address] [place] [address] Dr. Yariel Herrera ALP [Catalytic activity/Vol] 87 U/L Normal 46-116 [facility] Comment on above: Performed By: #### C BC #### [facility] [address] [place] [address] Dr. Yariel Herrera ALT [Catalytic activity/Vol] 25 U/L Normal 14-59 [facility] Comment on above: Performed By: #### C BC #### [facility] [address] [place] [address] Dr. Yariel Herrera Anion gap [Moles/Vol] 13.3 mmol/L Normal [facility] Comment on above: Performed By: #### C BC #### [facility] [address] [address] [address] Yariel Herrera AST [Catalytic activity/Vol] 15 U/L Normal 15-37 [facility] Comment on above: Performed By: #### C BC #### [facility] [address] [address] [address] Yariel Herrera Bilirubin [Mass/Vol] 0.5 mg/dL Normal 0.2-1.0 [facility] Comment on above: Performed By: #### C BC #### [facility] [address] [address] [address] Yariel Herrera Calcium [Mass/Vol] 9.6 mg/dL Normal 8.5-10.1 [facility] Comment on above: Performed By: #### C BC #### [facility] [address] [address] [address] Yariel Herrera Chloride [Moles/Vol] 103 mmol/L Normal 98-107 [facility] Comment on above: Performed By: #### C BC #### [facility] [address] [address] [address] Yariel Herrera CO2 [Moles/Vol] 28.9 mmol/L Normal 21.0-32.0 [facility] Comment on above: Performed By: #### C BC #### [facility] [address] [address] [address] Yariel Herrera Creatinine [Mass/Vol] 0.84 mg/dL Normal 0.55-1.02 [facility] Comment on above: Performed By: #### C BC #### [facility] [address] [address] [address] Yariel Herrera EGFR-AF DUTCH >60 Normal >=60 [facility] Comment on above: Performed By: #### C BC #### [facility] [address] [address] [address] Yariel Herrera EGFR-NON AF DUTCH >60 Normal >=60 [facility] Comment on above: Performed By: #### C BC #### [facility] [address] [address] [address] Yariel Herrera Globulin (S) [Mass/Vol] 3.4 g/dL Normal [facility] Comment on above: Performed By: #### C BC #### [facility] [address] [address] [address] Yariel Herrera Glucose [Mass/Vol] 111 mg/dL Critically high 74-106 T [facility] Comment on above: Performed By: #### C BC #### [facility] [address] [place] [address] Dr. Yariel Herrera Potassium [Moles/Vol] 4.2 mmol/L Normal 3.5-5.1 [facility] Comment on above: Performed By: #### C BC #### [facility] [address] [place] [address] Dr. Yariel Herrera Protein [Mass/Vol] 7.6 g/dL Normal 6.4-8.2 [facility] Comment on above: Performed By: #### C BC #### [facility] [address] [place] [address] Dr. Yariel Herrera Sodium [Moles/Vol] 141 mmol/L Normal 136-145 [facility] Comment on above: Performed By: #### C BC #### [facility] [address] [place] [address] Dr. Yariel Herrera Urea nitrogen [Mass/Vol] 15.0 mg/dL Normal 7.0-18.0 [facility] Comment on above: Performed By: #### C BC #### [facility] [address] [place] [address] Dr. Yariel Herrera Urea nitrogen/Creatinine [Mass ratio] 17.9 mg/mg Normal [facility] Comment on above: Performed By: #### C BC #### [facility] [address] [place] [address] Dr. Yariel Hrerera TSHon 08-04-2021 TSH 1.073 uIU/mL Normal 0.358-3.740 [facility] Comment on above: Performed By: #### C BC #### [facility] [address] [place], [place] [address] Dr. Yariel Herrera TSH RANGE SEE BELOW Normal [facility] Comment on above: Result Comment: <0.3 4 UIU/ml HYPERTHYROID 0.34-5.60 UIU/ml EUTHYROID >5.60 UIU/ml HYPOTHYROID Performed By: #### C BC #### [facility] [address] [place], [place] [address] Dr. Yariel Herrera Encounters Encounter Date Encounter Type Care Provider Facility Start: 05-25-2023 ambulatory Dasha Waggoner PA-C F acility[facility] Start: 05-04-2023 End: 05-05-2023 ambulatory Dasha Waggoner [facility]-C [facility] Start: 04-26-2023 End: 04-26-2023 ambulatory GAYLA AICHHOLZ Not Available Start: 04-08-2023 Clinisync Result Encounter Gayla Michelle SOLE CONDITIONER Work Phone: [facility] Unsolicited Start: 04-08-2023 Clinisync Result Encounter Gayla Michelle SOLE CONDITIONER Work Phone: [facility] Unsolicited Start: 04-07-2023 Refill Gayla Michelle SOLE CONDITIONER Work Phone: [facility] Comment on above: COPD with exacerbati on (CMS/HCC) (Primary Dx) Start: 02-08-2023 End: 02-09-2023 ambulatory Dasha Waggoner PA-C Facility:[facility] Start: 01-25-2023 End: 01-25-2023 ambulatory GAYLA AICHHOLZ Not Available Start: 01-19-2023 End: 01-19-2023 ambulatory [facility] [place] [facility] Start: 12-22-2022 End: 12-23-2022 ambulatory Dasha Waggoner PA-C Facility:[facility] Start: 11-26-2022 End: 11-27-2022 ambulatory Dasha Waggoner PA-C Facility:[facility] Start: 11-23-2022 End: 11-24-2022 ambulatory Lara Mar MD Facility:[facility] Start: 10-15-2022 End: 10-16-2022 ambulatory Dashaeyad Waggoner PA-C Facility:[facility] Start: 09-16-2022 End: 09-17-2022 ambulatory Dasha Waggoner PA-C Facility:[facility] Start: 08-21-2022 End: 08-24-2022 Evaluation and management of inpatient Delfino Snider III, MD Facility:[facility] Start: 08-14-2022 End: 08-15-2022 ambulatory Delfino Snider III, MD Facility:[facility] Start: 08-10-2022 End: 08-11-2022 ambulatory Delfino Snider III, MD Facility:[facility] Start: 08-06-2022 ambulatory Delfino Snider III, MD Facility:[facility] Start: 07-23-2022 End: 07-24-2022 ambulatory Dasha HODGES-C [facility] Start: 07-03-2022 End: 07-03-2022 ambulatory [facility] Start: 06-24-2022 End: 06-25-2022 ambulatory Dasha HODGES-C Facility:[facility] Start: 06-17-2022 End: 06-18-2022 ambulatory INA JOHNSON Facility:[facility] Start: 06-10-2022 End: 06-10-2022 ambulatory [facility] Start: 05-08-2022 End: 05-09-2022 ambulatory CARL RAZOHOTHANI Facility:[facility] Start: 05-05-2022 End: 05-06-2022 ambulatory Dasha Waggoner PA-C [facility] Start: 01-05-2022 End: 01-06-2022 ambulatory MOHAMAD ALGHOTHANI Facility:[facility] Start: 11-05-2021 End: 11-06-2021 ambulatory GAURAV MARTINEZ Facility:[facility] Start: 10-16-2021 End: 10-17-2021 ambulatory MOHAMAD ALGHOTHANI Facility:[facility] Start: 09-16-2021 End: 09-17-2021 ambulatory [employer] GALYA MARTINEZ Facility:[facility] Start: 08-04-2021 End: 08-05-2021 ambulatory OIL [employer]RE SPECIALIST GAYLA MARTINEZ Facility:[facility] Procedures Date Procedure Procedure Detail Performing Clinician Start: 04-08-2023 [employer] [facility] [employer] [facility] Gayla Martinez SOLE CONDITIONER Work Phone: Start: 12-03-2022 Mammography Gayla jerome SOLE CONDITIONER Work Phone: Start: 04-20-2013 Colonoscopy Gayla jerome SOLE CONDITIONER Work Phone: Plan of Treatment Date Care Activity Detail Author Start: 09-08-2026 Screening for malign ant neoplasm of colon [facility] Start: 12-04-2023 Screening for malign ant neoplasm of breast Mammogram [facility] Start: 08-22-2023 Influenza vaccination Influenza Vacc ine (#1) [facility] Comment on above: Postponed from 10/23 (Other Medical Reasons) Start: 07-24-2023 Screening for malign ant neoplasm of cervix Cervical Cancer Screening [facility] Comment on above: Postponed from 02/03 (Other Medical Reasons) Start: 05-30-2023 Urine screening for protein Diabetes: Urine Protein Screening [facility] Start: 04-26-2023 Glaucoma screening Diabetes: R etinopathy Screening [facility] Comment on above: Postponed from 02/03 (Other Medical Reasons) Start: 04-26-2023 End: 04-26-2023 Patient encounter procedure 04/26/2023 9:00 AM EST Office Visit [facility] [address] [place] [address] Gayla Martinez, ROSI [address] [place] [address] [facility] Start: 03-05-2023 Hemoglobin A1c measurement Diabetes: Hemoglobin A1C [facility] Start: 02-03-1990 Screening for malign ant neoplasm of cervix HPV/Cotest [facility] Start: 02-03-1981 Screening for malign ant neoplasm of cervix Pap Smear [facility] Start: 1960 Screening for malign ant neoplasm of colon [facility] Immunizations Immunization Date Immunization Notes Care Provider Shahzad [email or web address] 01-06-2022 influenza virus vacc ine, unspecified formulation Gayla Martinez SOLE CONDITIONER Work Phone: [facility] Payers Date Payer Category Payer Private Health Insurance 2022 Medicaid [employer] [place] [id number] 2022-Present [address] [place] [address] [id number] 1960 Unknown [id number] 2.16.840.1.262451.3.579.2. 593 1960 Unknown [id number] 2.16.840.1.995997.3.579.2. 593 1960 Unknown [id number] 2.16.840.1.441321.3.579.2. 593 1960 Unknown [id number] 2.16.840.1.724710.3.579.2. 593 1960 Unknown [id number] 2.16.840.1.839307.3.579.2. 593 1960 Unknown [id number] 2.16.840.1.404349.3.579.2. 593 1960 Unknown [id number] 2.16.840.1.678491.3.579.2. 593 1960 Unknown [id number] 2.16.840.1.623922.3.579.2. 1259 1960 Unknown [id number] 2.16.840.1.205179.3.579.2. 1259 1960 Unknown [id number] 2.16.840.1.565152.3.579.2. 196 1960 Unknown [id number] 2.16.840.1.237054.3.579.2. 196 1960 Unknown [id number] 2.16.840.1.192662.3.579.2. 196 1960 Unknown [id number] 2.16.840.1.089884.3.579.2. 196 1960 Unknown [id number] 2.16.840.1.497028.3.579.2. 196 1960 Unknown [id number] 2.16.840.1.257729.3.579.2. 196 1960 Unknown [id number] 2.16.840.1.382937.3.579.2. 196 1960 Unknown [id number] 2.16.840.1.356922.3.579.2. 196 1960 Unknown [id number] 2.16.840.1.921790.3.579.2. 196 1960 Unknown [id number] 2.16.840.1.021193.3.579.2. 196 1960 Unknown [id number] 2.16.840.1.239751.3.579.2. 196 1960 Unknown [id number] 2.16.840.1.395677.3.579.2. 196 1960 Unknown [id number] 2.16.840.1.204334.3.579.2. 196 1960 Unknown [id number] 1960 Unknown [id number] 1960 Unknown [id number] 1959 Unknown [id number] 1959 Unknown [id number] Social History Date Type Detail Facility Start: 01-25-[address] [facility] History of tobacco use Cigarette Smoker [facility] Start: 01-25-2023 Cigarettes smoked cu rrent (pack per day) - Reported 0.5 [facility] Start: 01-25-2023 Tobacco use and exposure Smoke less tobacco non-user [facility] Start: 02-08-2023 Alcohol intake Lifetime non-d mariaa (finding) [facility] Start: 01-25-[address] [facility] Start: 1960 Sex Assigned At Not on file [facility] Medical Equipment Procedure Code Equipment Code Equipment Original Text Equi pment Identifier Dates 1 Device Daily as needed. [id number] Clinical Notes 06-10-2022 to 01-19-2023 Note Date & Type Note Facility 01-19-2023 Note Cardiovascular Medic [facility] SUBJECTIVE Chief Complaint Patient presents with Follow-up Hypertension Stephan López is a 62 y.o. female here for follow-up. HPI PMHx: HTN, pericardial effusion, HLD She denies any cardiac concerns today. She has back problems. She is 5 months s/p surgery and she is still recovering. She is following with pain management at [facility]. She is not currently checking her BP at home. She denies c/o CP, dyspnea, orthopnea, PND, LE edema, dizziness/LH, palpitations, syncope. Patient Active Problem List Diagnosis Diabetes 1.5, managed as type 2 ([facility]) Disorder of sacrum Lumbar neuritis Lumbar spondylosis [...] needed. Dante Hand NP [facility] Cardiovascular [facility] 01-19-2023 Note Patient here for 6 [...] All other systems reviewed and are negative. [facility] 08-24-2022 Note Admission Mat Hayes 62-year-old [...] neurosurgery education form Follow-up: As scheduled preoperatively-call [phone] to confirm appointment to be seen in [...] cyst left L4-5; computer-assisted hardware placement using [employer] station and [employer] O-arm Medications Home atorvastatin 20 mg oral [...] oral capsule, 500 mg= 1 caps, Oral, [id number] Times magnesium hydroxide 8% oral suspension, 1.2 [...] tabs, 0 Refill(s), 08/31/22 7:48:00 EDT, Pharmacy: [facility] #[id number] Discharge Patient 3. Lumbar radiculopathy Ordered: Discharge Patient 4. Nicotine dependence Ordered: Discharge Patient Orders: ascorbic acid, 1 tabs, Oral, q8hr, # 270 tabs, 0 Refill(s), Pharmacy: [facility] #[id number] cephalexin, 500 mg, Oral, Cap, [id number] Times for 12 doses, First Dose: 08/24/22 12:00:00 EDT, Stop Date: 08/27/22 11:59:00 EDT, Dispense From Location: [address], Prophylaxis- Pre/Post-Op, 08/24/22 7:40:00 EDT cephalexin, 1 caps, Oral, [id number] Times, X 3 days, # 12 caps, 0 Refill(s), 08/27/22 7:47:00 EDT, Pharmacy: [facility] #[id number] docusate, 1 caps, Oral, BID, # 14 caps, 0 Refill(s), Pharmacy: [facility] #[id number] ferrous sulfate, 1 tabs, Oral, BID, # 60 tabs, 0 Refill(s), Pharmacy: [facility] #[id number] magnesium hydroxide, 15 mL, Ora (more content not included)... [facility] 07-03-2022 Note No concerning symptoms [facility] 07-03-2022 Note Hypertension is well controlled 120/84 Reviewed b/p log and overall her b/p is controlled with some outliers of high and low b/p. Renal function was normal s/p starting lisinopril [facility] 07-03-2022 Note Patient here for 1 [...] All other systems reviewed and are negative. [facility] 07-03-2022 Note [facility] CARDIOLOGY PROGR ESS [...] effusion No concerning symptoms RTC 6 months [facility] 06-10-2022 Note F/U with PCP [facility] 06-10-2022 Note Hypertension is 145/ 99 uncontrolled Will start lisinopril 2.5 mg daily BMP in 1 week Start monitoring b/p at home and record on a log, RTC 1 month D/W pt about side effects of 1st dose low b/p and dry persistent cough [facility] 06-10-2022 Note Recent echo with not ed trivial effusion. No recent illness or any concerning symptoms [facility] 06-10-2022 Note [facility] CARDIOLOGY PROGR ESS NOTE HPI: Stephan López is a 62 y.o. female here for routine f/U for pericardial effusion. At the time, patient denied any cardiac complaints. She denied any chest pain or shortness of breath. She denies any cardiac history. No history of AZ, PCI, CHF. Repeat echocardiogram demonstrated a trivial [...] with PCP RTC 1 month for re-evaluation [facility] 06-10-2022 Note Patient here for 6 m o follow up pericardial effusion. Had echo in April 2022. Denies chest pain and SOB. Review of Systems Musculoskeletal: Positive for back pain. All other systems reviewed and are negative. [facility] Evaluation note Diagnosis COPD with exacerbation (CMS/HCC)- [...] and content) DATE CREATED AUTHOR 06/21/2022 [facility] DATE CREATED AUTHOR AUTHOR'S ORGANIZ ATION 03/20/2023 [facility] DATE CREATED AUTHOR AUTHOR'S ORGANIZ ATION 04/26/2023 [facility] EPIC DATE CREATED AUTHOR AUTHOR'S ORGANIZ ATION 05/05/2023 [facility] Care Teams (unrecognized sec tion and content) Manager Star Relationship Specialty Start Date End Date Jim Deleon MD [address] [place] [address] PCP - General Family Medicine 09/18/22 Gayla Martinez NP [address] [place] [address] Referring Physician Nurse Practitioner 09/18/22 Manager Star Relationship Specialty Start Date End Date Jim Deleon MD [address] [place] [address] PCP - General Family Medicine 09/18/22 Gayla Martinez NP [address] [place] [address] Referring Physician Nurse Practitioner 09/18/22 FOR RECORDS [...] BE BASED ON THE PRIMARY CLINICAL RECORDS. [employer] provides no warranty or guarantee of the accuracy or completeness of information in this document.
[2023-05-10 07:51] VITALS: BP 136/80; PULSE 102; RESP 14; TEMP 36.1; O2SAT 99
[2023-05-10 07:57] LABS: Glucometer 170 mg/dL (74-106)
[2023-05-10 08:40] VITALS: BP 117/71; PULSE 89; RESP 18; O2SAT 93
[2023-05-10 08:44] VITALS: BP 113/67; PULSE 88; RESP 18; O2SAT 93
--- NOTE | 2023-05-10 08:45 | W.PM.PROCNOT ---
Date of procedure: 05/10/23 Pre-op diagnosis: Lumbar stenosis with neurogenic claudication Post-op diagnosis: same as pre-op Procedure: Procedure: Bilateral L5-S1 transforaminal epidural steroid injection Medications: Bupivacaine 0.25% 1cc, lidocaine 2% 1cc, kenalog 80mg The patient was seen and examined in the preoperative holding area.? Informed consent was obtained and placed on the chart.? Patient was brought to the medical procedure unit and placed in the prone position where a timeout was completed verifying the correct patient, procedure site, position, and planned special equipment using sterile aseptic technique.? Under direct fluoroscopic visualization a 25-gauge Quincke tipped spinal needle was advanced at level left L5-S1 to the designated neural foramen where contrast dye was injected to show adequate spread.? There was no evidence of vascular or adverse uptake.? Epidural spread was appreciated.? The above-mentioned injectate was then placed in a 1.5 mL aliquot preceded by negative aspiration.? The needle was removed. The same procedure, at the same level, was completed on the opposite side. ? Patient was taken to the postprocedural recovery area and monitored for an appropriate length of time before found suitable for discharge in the accompaniment of a responsible adult. Anesthesia: Local Surgeon: Lara Mar Pathology: none sent Condition: stable Disposition: no change
[2023-05-10] MEDS: 0.9 % SODIUM CHLORIDE 10 ML INJ (08:46)
[2023-05-10] MEDS: TRIAMCINOLONE ACETONIDE 40 MG/ML VIAL 80 MG INJ (08:47)
[2023-05-10] MEDS: IOHEXOL 240 MG/ML - 10 ML VIAL 24 MG INJ (08:47)
[2023-05-10] MEDS: LIDOCAINE HCL 2% PF 100 MG/5 ML VIAL 3 ML INJ (08:47)
[2023-05-10] MEDS: BUPIVACAINE HCL 0.25% PF 25 MG/10 ML VIAL INJ (08:47)
== END 2023-05-10 08:52 | disposition home or self-care (01) ==
LOC: SURGOUT 07:37
PROVIDERS: PCP Nurse Practitioner; Visit Provider Anesthesiology
DX: M48.062 Spinal stenosis, lumbar region with neurogenic claudication (principal)
CPT/HCPCS: 36415; 64483; 82948; Q9966

== ENCOUNTER 2023-05-19 09:03 | Outpatient (OUT) | payer OTHER, SELFPAY ==
--- NOTE | 2023-05-19 08:16 | P.CN_ITS ---
Consult Note: HPI Data of Consult Patient: known to practice within the last 3 years Requesting Physician: Gwendolyn Salamanca NP Primary Care Provider: Gayla Martinez NP Consult Narrative Reason for consult: f/u Narrative: Stephan muniz pleasant 62 year old female presents for evaluation and management of chronic back pain. Today pain 3-4/10 in right low back and right hip, describes as a sharp burning pain. Patient has a hx of L3,4,5 fusion. Patient utilizing external bone stimulator. Patient has found mild benefit to current medication regimen, no side effects. Patient continues to have moderate to severe pain that is severely impacting functional ability, DIONNA 58%. Patient has completed aquatherapy without improvement. Recently underwent Bilateral L5- S1 transforaminal epidural steroid injection with 80% improvement in low back and radicular pain. Patient would like to discuss burning and pain in right posterior hip. cc:: CC: Gwendolyn Salamanca NP Review of Systems ROS Status of ROS 10 or more systems reviewed and unremark able except as noted in history and below Musculoskeletal Reports: back pain and [facility] Medical History (Updated 05/19/23 @ 09:06 by Gwendolyn Salamanca NP) Low back pain ?M54.50 - Low back pain, unspecified (ICD-10) Osteoarthritis ?M19.90 - Unspecified osteoarthritis, unspecified site (ICD-10) Diabetes ?E11.9 - Type 2 diabetes mellitus without complications (ICD-10) COPD (chronic obstructive pulmonary disease) ?J44.9 - Chronic obstructive pulmonary disease, unspecified (ICD-10) Smoker ?F17.200 - Nicotine dependence, unspecified, uncomplicated (ICD-10) Hypertension ?I10 - Essential (primary) hypertension (ICD-10) Surgical History S/P surgical removal of pilonidal cyst ?Z98.890 - Other specified postprocedural states (ICD-10) H/O lumbosacral spine surgery ?Z98.890 - Other specified postprocedural states (ICD-10) Meds Home Medications and Allergies Home Medications ?Medication ?Instructions ?Recorded ?Confirmed ?Type amitriptyline 10 mg tablet 25 mg PO DAILY 11/23/22 05/10/23 History atorvastatin 20 mg tablet 20 mg PO DAILY 11/23/22 05/10/23 History ferrous sulfate 325 mg (65 mg 325 mg PO DAILY 11/23/22 05/10/23 History iron) tablet (FeroSul) fluticasone fur. 100 mcg-umeclid 1 inh inhalation DAILY 11/23/22 05/10/23 History 62.5 mcg-vilant 25 mcg inhalat.powder (Trelegy Ellipta) lisinopril 2.5 mg tablet 2.5 mg PO DAILY 11/23/22 05/10/23 History metformin 500 mg tablet 500 mg PO BID 11/23/22 05/10/23 History tizanidine 4 mg capsule 4 mg PO DAILY PRN muscle spasticity 11/23/22 05/10/23 History tramadol 50 mg tablet 50 mg PO Q12H 01/21/23 05/10/23 History meloxicam 15 mg tablet 15 mg PO DAILY 04/15/23 05/10/23 History Allergies Allergy/AdvReac Type Severity Reaction Status Date / Time No Known Drug Allergies Allergy Verified 11/23/22 14:05 Exam Constitutional Documenting provider has reviewed patient's vital signs: yes Common normals: no apparent distress, oriented x3, healthy appearing, alert and well nourished General appearance: cooperative HENMT Common normals: normocephalic, hearing grossly normal bilaterally and moist oral mucous membranes Head and scalp: normocephalic Eye Common normals: PERRL Pupil: PERRL Neck & C-Spine Common normals: full ROM General: normal visual inspection Chest Common normals: inspection of chest normal Respiratory Common normals: normal respiratory effort, no retractions and no use of accessory muscles Back & Pelvis Lumbar spine/lower back: ROM limited, pain with ROM and straight leg raise negative bilaterally Sacroiliac joints: SI joint(s) abnormal Other: facet loading bilateral intermittent NC right SIJ pain over PSIS, positive DECLAN, FADIR, thigh thrust, gaenslens Extremity Common normals: normal to inspection and full ROM Neuro Common normals: oriented x3, CN's II-XII intact bilaterally, moves all extremities, no focal motor deficits, no sensory deficits noted and deep tendon reflexes 2+ bilaterally Sensorium/orientation: alert Gait (neuro): antalgic and assistive device used cane Motor exam: strength 5/5 throughout and no movement abnormalities noted Psych Common normals: mental status grossly normal, thought process normal, cooperative, affect normal, speech normal and activity/motor behavior normal Speech: normal speech Thought process: normal thought process Results Additional Findings Additional findings: If on a controlled substance or opioids, I have checked an [place] report on this patient and there are no aberrancies noted in the prescribing history.??If on a controlled substance or opioid a drug screen was completed and reviewed within the last year, and if there has not been a drug screen completed we ordered one today to monitor higher risk, state monitored pain medication use. As part of providing excellent, safe, comprehensive care, the following was completed at our patient's visit: 1. A medication reconciliation and review to ensure accurate knowledge of current/active medications, including asking our patients to inform us about any maly-edd-plisale medications or herbal remedies/nutritional supplements/alternative remedies. 2. A review to specifically ensure our patients have had annual screening for screening for depression, screening for tobacco use, and screening for unhealthy alcohol use. For concerning screenings had a discussion with the patient, provided patient education, and recommended follow-up with primary care provider when appropriate. If patient noted with a risk of falling, they received education on strength, gait, and balance training to prevent future risk of falling. Assessment and Plan Assessment and Plan (1) Sacroiliitis: (2) Lumbar radiculopathy: Assessment and Plan: moderate ongoing improvement 60-80% in radicular pain and NC symptoms (3) Lumbar stenosis with neurogenic claudication: (4) Chronic prescription opiate use: Assessment and Plan: I feel these medications are improving the patient's quality of life and allow them to tolerate activities of daily living as well as participate in recreational activity.? The patient does not report intolerable side effects. The patient is NOT opioid naive and non-pharmacologic and non-opioid treatment has failed to significantly relieve the patient's pain and improve functionality. The patient has a diagnosis that is related to a somatic or visceral pain etiology. ? ?? I reviewed with the patient the potential risks and side effects with the use of? opioid medications including but not limited to respiratory depression,? sedation, and even . I verified the patient has access to naloxone should? these effects occur. I advised the patient to avoid the use of any other? sedation substances including alcohol, THC, and benzodiazepines while? taking opioid medications due to the risk of compounding side effects and? detrimental outcomes. I reviewed the METAL TRIM E[employer]OR, pain treatment agreement, urine? drug screen, and opioid start talking forms. The patient was advised to let? their family know they had Naloxone in case they would need to administer? the medication.? ?? A drug screen was completed within the last year, and no aberrancies were noted regarding their use of controlled substances. The patient understands they are subject to the terms and conditions of the pain contract that they have signed. ? ?? I have checked an OARRS report on this patient today and there are no aberrancies noted in the prescribing history.? (5) Lumbar spondylosis: (6) Muscle spasm: Plan -nerve block of right SIJ under fluoroscopy, risks vs benefits discussed. -continue current medications, denying side effects reporting functional improvement and moderate pain relief -continue f/u with orthopedic surgeon -f/u after injection
== END 2023-05-19 09:04 | disposition home or self-care (01) ==
PROVIDERS: PCP Nurse Practitioner; Visit Provider Nurse Practitioner
DX: M46.1 Sacroiliitis, not elsewhere classified (principal); M54.16 Radiculopathy, lumbar region; Z79.891 Long term (current) use of opiate analgesic; M47.816 Spondylosis without myelopathy or radiculopathy, lumbar region; M62.838 Other muscle spasm
CPT/HCPCS: G0463

== ENCOUNTER 2023-06-14 10:45 | Day surgery (SDC) | payer OTHER, SELFPAY ==
[2023-06-14 10:54] VITALS: BP 133/89; PULSE 45; TEMP 36.7; O2SAT 98
[2023-06-14 11:02] LABS: Glucometer 162 mg/dL (74-106)
--- OUTSIDE RECORDS SUMMARY | 2023-06-14 11:08 | XMS_ITS | CCD ---
Author Organization [facility] Care Team Providers Care Supervisor [employer]ges [employer] Buildings Name Role Phone ALGHOEVELINEANI MOHAMAD Attending Unavailable AICHHOLZ, FINANCIAL WRITER GAYLA Primary Care Unavailable ALGHOTHANI, MOHAMAD Consulting Unavailable ALGHOTHANI, MOHAMAD Admitting Unavailable AICHHOLZ, FINANCIAL WRITER GAYLA Primary Care Unavailable AICHHOLZ, FINANCIAL WRITER GAYLA Admitting Unavailable AICHHOLZ, FINANCIAL WRITER GAYLA Attending Unavailable AICHHOLZ, FINANCIAL WRITER GAYLA Consulting Unavailable ALGHOTHANI, MOHAMAD Attending Unavailable AICHHOLZ, FINANCIAL WRITER GAYLA Primary Care Unavailable ALGHOTHANI, MOHAMAD Consulting Unavailable ALGHOTHANI, MOHAMAD Admitting Unavailable ALGHOTHANI, MOHAMAD Attending Unavailable AICHHOLZ, FINANCIAL WRITER GAYLA Primary Care Unavailable ALGHOTHANI, MOHAMAD Consulting Unavailable ALGHOTHANI, MOHAMAD Admitting Unavailable ALEX, INA Attending Unavailable ALEX, INA Admitting Unavailable ALEX, INA Consulting Unavailable AICHHOLZ, FINANCIAL WRITER GAYLA Primary Care Unavailable AICHHOLZ, FINANCIAL WRITER GAYLA Admitting Unavailable AICHHOLZ, FINANCIAL WRITER GAYLA Attending Unavailable AICHHOLZ, FINANCIAL WRITER GAYLA Consulting Unavailable AICHHOLZ, FINANCIAL WRITER GAYLA Primary Care Unavailable AICHHOLZ, FINANCIAL WRITER GAYLA Admitting Unavailable AICHHOLZ, FINANCIAL WRITER GAYLA Attending Unavailable AICHHOLZ, FINANCIAL WRITER GAYLA Consulting Unavailable AICHHOLZ, FINANCIAL WRITER GAYLA Primary Care Unavailable ALEX, INA Attending Unavailable ALEX, INA Attending Unavailable DANTE HAND Attending Unavailable Aichholz FAMILY DINNER SERVICE SPECIALIST, Gayla Unavailable Pnacho BOWIE, Jim Primary Care Provider [phone] LORNE MARTINEZA Attending Unavailable AICHHOLZ, GAYLA Attending Unavailable Isabela BOWIE, Lara Amos Attending Unavailable Isabela BOWIE, Lara Amos Attending Unavailable Edilson PA-C, Dasha Pedro Attending Unavailab rose Snider III, MD, Delfino Freeman Consulting U navailable Unavailable, Physician Primary Care Unavailab le Edilson [...] sources) pregabalin; Translations: [PREGABALIN] Drug Allergy 3 [facility] Repository (1 source) No Known Medication Allergies; Translations: [No Known Medication Allergies] Propensity to adverse reactions to drug (disorder) [facility] Repository Medications Current Medications Medication Drug [...] oral solution (2 sources) alpha-Adrenergic Agonist, Uncompetitive M-yceyfy-L-aspartat e Receptor Antagonist, Sigma-1 Agonist Start: 04-07-2023 [...] Reference Range Facility Neurosurgery Office/Clinic N zain 05-25-2023 Neurosurgery Office/Clinic Note Chief Complaint 6-8 week follow up-XR & PT History of Present Illness The patient is a pleasant 63-year-old female with history of diabetes, COPD, and chronic nicotine abuse who returns to the neurosurgical office approximately 9 months status post L3-5 decompression and posterior [...] fractures which was then confirmed with CT. Follow-up CT of the lumbar spine revealed better consolidation of posterior lateral arthrodesis as well as healed bilateral L5 pedicle fractures and therefore she was discontinued from her LSO brace 01/2023. She continues to complete postoperative physical therapy which she feels provides relatively good benefit. The patient was last seen in the neurosurgical office 02/08/2023 and returns today with updated flexion/extension x-rays of the lumbar spine. Results detailed below. Overall, the patient reports that she is doing relatively well continues to have daily low back pain she describes as a 5?6/10 on the pain scale. This varies in intensity dependent upon her activity and is most significant if standing at the sink or counter in her kitchen with a slight forward flexion at her waist. She uses daily meloxicam and tizanidine though only utilizes tramadol when pain is most severe. She notes relief of pain severity when sitting or if laying on her left side with knees bent. She denies lower extremity pain, numbness, paresthesia or overt weakness though does report recent episodes in the past 1 to 2 weeks when the nerves in her legs get active if she yawns or if her legs are. Hold this tends to last approximately 5 minutes before resolving and is not overtly bothersome to her. She continues with physical therapy, both Damaso and aqua therapy 3 times per week with good benefit. She has recently undergone an L5-S1 transforaminal SVITLANA 05/10/2023 by [facility] pain management which did give her approximately 2 to 3 weeks of incomplete benefit. She is planned for bilateral sacroiliac joint injections in the near future. The patient has discontinued her LSO brace that continues her electromagnetic stimulator 8 hours/day. Recent imaging (provider interpretation): Lumbar flexion/extension x-rays 04/30/2023 at [facility] reveals straightening of lumbar lordosis. Evidence of L3-5 posterior spinal fusion with instrumentation and interbody fusion L4-5. No evidence of hardware fracture or pullout. Patient found to have degenerative disc disease L2-3 and L5-S1. There is slight retrolisthesis L2-3 as well as unchanged anterior listhesis at her surgerized L4-5 segment. No evidence of dynamic instability. CT lumbar spine 02/03/2023 at [facility] reveals evidence of L3-5 posterior spinal [...] prior imaging. CT lumbar spine 10/14/2022 at [facility] reveals evidence of L3-5 decompression and [...] abnormal angulation of the L5 pedicles which c (more content not included)... Normal [facility] INFLUENZA A AND B AGon 0 04-08-2023 INFLUENZA VIRUS A ANTIGEN Positive Abnormal [facility] Comment on above: NOTE: Live attenuate d influenza vaccine viruses can cause a positive result for a rapid influenza diagnostic test if administered up to 7 days prior to rapid testing. INFLUENZA VIRUS B ANTIGEN Negative [facility] Comment on above: Negative for Flu B p rotein antigen. Infection due to Flu B cannot be ruled out. Flu B antigen in the sample may be below the detection limit of the test. Interpretation and review of laboratory results Abnormal [facility] 36on 03-19-2023 36 Please let her know her labs showed normal kidney function. Can continue lisinopril. Thank you Normal [facility] Telephoneon 03-19-2023 Telephone [id number] James López 1960 F Date Provider Department Center 03/19/2023 EseDANTE HAND [facility] Family History Problem Relation Age of Onset Other Mother Heart attack Father Other Father Other Father Other Maternal Grandmother Family Status - Relation Status Age at Mother Father Maternal Grandmother Normal [facility] Neurosurgery Office/Clinic N oteon 02-08-2023 Neurosurgery [...] and tizanidine as provided by pain management ([facility] pain management) only as needed and has not yet returned to NSAID medication. She continues to utilize nicotine and understands the deleterious effects of nicotine on her overall health and bony arthrodesis. Recent imaging (provider interpretation): CT lumbar spine 02/03/2023 at [facility] reveals evidence of L3-5 posterior spinal [...] prior imaging. CT lumbar spine 10/14/2022 at [facility] reveals evidence of L3-5 decompression and [...] bladder inc (more content not included)... Normal [facility] Office Visiton 01-19-2023 Follow-up visit [id number] James López 1960 F Date Provider Department Center 01/19/2023 DANTE BAIG [facility] Family History Problem Relation Age of Onset Other Mother Heart attack Father Other Father Other Father Other Maternal Grandmother Family Status - Relation Status Age at Mother Father Maternal Grandmother Level of Service:30184 [place] OFFICE/OUTPATIENT ESTABLISHED LOW MDM 20-29 MIN Reason for Visit and Comments: Follow-up [473041] Hypertension [494354] Normal [facility] Neurosurgery Office/Clinic N zain 12-22-2022 Neurosurgery Office/Clinic [...] 2 times per week. She follows with [facility] pain management which is a transition from [facility] pain management group. She continues to smoke [...] prior imaging. CT lumbar spine 10/14/2022 at [facility] reveals evidence of L3-5 decompression and [...] demonstrates normal respiratory effort [facility] proper fit and alignment. This was removed at the time of today's visit for incision evaluation. Lumbosacral incision appears well-healed and without erythema, edema, drainage or warmth. She notes mild tenderness (more content not included)... Normal [facility] Neurosurgery Office/Clinic N zain 11-26-2022 Neurosurgery [...] she recently transferred pain management care from [facility] to [facility]. Per the patient, they eventually would like her to initiate hot water physical therapy though only after receiving clearance from this office. Recent imaging (provider interpretation): CT lumbar spine 10/14/2022 at [facility] reveals evidence of L3-5 decompression and [...] demonstrates normal respiratory effort She presents in [facility] lock brace with proper fit and alignment. [...] lower extre (more content not included)... Normal [facility] Neurosurgery Office/Clinic N zain 10-15-2022 Neurosurgery [...] (provider interpretation): CT lumbar spine 10/14/2022 at [facility] reveals evidence of L3-5 decompression and [...] Lumbar w/o (more content not included)... Normal [facility] Provider Letteron 10-15-2022 Provider Letter [facility] [address], [phone] Date: 10/15/2022 17:05:57 To Whom It May Concern: This is to verify that Stephan López was under our care on 10/15/2022 16:00:00. Stated patient underwent an L3-5 posterior spinal fusion on 08/21/22 with instrumentation utilizing Medtronic osteogrip titanium screws. If you have any questions or concerns please call our office at [phone]. Thank you, Dasha Waggoner PA-C Normal [facility] Neurosurgery Office/Clinic N otesekou 09-16-2022 Neurosurgery Office/Clinic Note Chief Complaint Patient [...] postoperative Lovenox dosing as recommended by her mainframe developer for strong family history of blood clots. [...] and manner are appropriate. She presents in [facility] brace which was removed at the [...] No redness (more content not included)... Normal [facility] Inpatient Clinical Summaryon 08-24-2022 Inpatient Clinical Summary [facility] [address] [place] [address] [address] Clinical Summary Person Information Name: Stephan López Age: 62 Years : 1960 Sex: Female PCP: Marital Status: Phone: PCP: Race: White Ethnicity: Not or Language: Sinhala Visit Id: Visit Reason: Speciality: Acuity: Enc Type: Inpatient Med Service: Surgery Arrival: 08/21/2022 06:28:12 Discharge: Dispo Type: Address: [address] [place] [id number] Diagnosis: 1:Lumbar stenosis with neurogenic claudication; 2:Spondylolisthesis, [...] range between ( 27.2 and 40.8 ) Lewis Auto: 8.9 % -- Normal range between [...] range between ( 36.0 and 46.0 ) Lewis Absolute: 1.8 x10 MCH: 31.8 pg -- [...] [facility] New Medications [id number], [address], [place] [id number], [phone] ascorbic acid (ascorbic acid 500 mg oral [...] magnesium hydroxi (more content not included)... Normal [facility] Neurosurgery Progress Noteon 08-24-2022 Neurosurgery Progress [...] Date: 08/27/22 7:59:00 EDT, Dispense From Location: [id number]-NXK-[id number], Prophylaxis- Pre/Post-Op, 08/24/22 7:40:00 EDT scopolamine, 1 patches, TD, Film-ER, q72hr, First Dose: 08/24/22 7:40:00 EDT, Dispense From Location: [facility], 08/24/22 7:40:00 EDT traMADol, 100 mg, Oral, Tab, q4hr, PRN severe pain [7-10 on pain scale], First Dose: 08/23/22 9:04:00 EDT, Dispense From Location: [id number]-ODP-6Q, 08/23/22 9:04:00 EDT traMADol, 50 mg, Oral, Tab, q4hr, PRN moderate pain [4-6 on pain scale], First Dose: 08/23/22 9:04:00 EDT, Dispense From Location: [address], 08/23/22 9:04:00 EDT Surgical Drains Subjective: [...] MD, Delfino Freeman 08/24/22 07:[address] [facility] Neurosurgery Progress Noteon 08-23-2022 Neurosurgery Progress [...] Dose: 08/23/22 9:04:00 EDT, Dispense From Location: [id number]-FAU-0C, 08/23/22 9:04:00 EDT traMADol, 50 mg, Oral, Tab, q4hr, PRN moderate pain [4-6 on pain scale], First Dose: 08/23/22 9:04:00 EDT, Dispense From Location: Vxvndhx-BPF-1D, 08/23/22 9:04:00 EDT Surgical Drains Subjective: Patient [...] signed by Tylor KAMARA MD, Delfino Freeman 08/23/22 09:[address] [facility] POC Glucose Randomon 023 Glucose [Mass/Vol] 114 mg/dL High 70-99 [facility] Comment on above: Performed By: #### C [id number] ####[address] [place] [address] Glucose [Mass/Vol] 114 mg/dL High 70-99 [facility] Comment on above: Performed By: #### C OMP #### [facility] [address] [place] [address] .eGFRon 08-22-2022 GFR/1.73 sq M.predicted MDRD (S/P/Bld) [Vol rate/Area] mL/min/{1.73_m2} Normal >=60 [facility] Comment on above: Result Comment: [facility] Laboratories have implemented the eGFR calculation approach [...] = years Performed By: #### E GFR ####[facility] [place] [address] Basic Metabolic Profileon Anion gap [Moles/Vol] 12 mmol/L Normal 7-17 [facility] Comment on above: Performed By: #### C OMP #### [facility] [address] [place] [address] Calcium [Mass/Vol] 8.5 mg/dL Normal 8.5-10.3 [facility] Comment on above: Performed By: #### C OMP #### [facility] [address] [place] [address] Chloride [Moles/Vol] 101 mmol/L Normal 98-110 [facility] Comment on above: Performed By: #### C OMP #### [address] [address] CO2 [Moles/Vol] 25 mmol/L Normal 22-32 [facility] Comment on above: Performed By: #### C OMP #### [address] [address] Creatinine [Mass/Vol] 0.76 mg/dL Normal 0.44-1.03 [facility] Comment on above: Performed By: #### C OMP #### [address] [address] Glucose [Mass/Vol] 116 mg/dL High 70-99 [facility] Comment on above: Performed By: #### C OMP #### [address] [address] Potassium [Moles/Vol] 4.2 mmol/L Normal 3.4-4.8 [facility] Comment on above: Performed By: #### C OMP #### [address] [address] Sodium [Moles/Vol] 134 mmol/L Normal 133-142 [facility] Comment on above: Performed By: #### C OMP #### [address] [address] Urea nitrogen [Mass/Vol] 10 mg/dL Normal 8-26 [facility] Comment on above: Performed By: #### C OMP #### [address] [address] Urea nitrogen/Creatinine [Mass ratio] 13.2 mg/mg Normal 10.0-20.0 [facility] Comment on above: Performed By: #### C OMP #### [address] [address] CBC w/ Diffon 08-22-2022 Erythrocyte distribution width (RBC) [Ratio] 13.5 % Normal 11.6-14.8 [facility] Comment on above: Performed By: #### C BC ####[address] [address] Hematocrit (Bld) [Volume fraction] 36.3 % Normal 36.0-46.0 [facility] Comment on above: Performed By: #### C BC ####[id number] Hemoglobin (Bld) [Mass/Vol] 12.2 g/dL Normal 12.0-16.0 [facility] Comment on above: Performed By: #### C BC ####[address] [id number] MCH (RBC) [Entitic mass] 31.8 pg Normal 27.0-35.0 [facility] Comment on above: Performed By: #### C BC ####[place] [address] MCHC 33.5 % Normal 31.0-37.0 [facility] Comment on above: Performed By: #### C BC ####[place] [id number] MCV (RBC) [Entitic vol] 94.9 fL Normal 80.0-100.0 [facility] Comment on above: Performed By: #### C BC ####[place] [id number] Platelet 282 x10*3/mcL Normal 150-450 [facility] Comment on above: Performed By: #### C BC ####[place] [id number] Platelet mean volume (Bld) [Entitic vol] 9.0 fL Normal 6.7-10.6 [facility] Comment on above: Performed By: #### C BC ####[place] [id number] RBC 3.82 x10*6/mcL Normal 3.80-5.20 [facility] Comment on above: Performed By: #### C BC ####[place] [id number] WBC 20.4 x10*3/mcL High 4.5-11.0 [facility] Comment on above: Performed By: #### C BC ####[address] [address] Diff Autoon 08-22-2022 Baso Absolute 0.1 x10*3/mcL Normal 0.0-0.2 [facility] Comment on above: Performed By: #### C OMP #### [address] [address] Basophils/100 WBC (Bld) 0.4 % Normal 0.0-1.5 [facility] Comment on above: Performed By: #### C OMP #### [address] [address] Eos Absolute 0.0 x10*3/mcL Normal 0.0-0.4 [facility] Comment on above: Performed By: #### C OMP #### [address] [address] Eosinophils/100 WBC (Bld) 0.1 % Normal 0.0-5.4 [facility] Comment on above: Performed By: #### C OMP #### [address] [address] Lymph Absolute 2.4 x10*3/mcL Normal 1.0-4.8 [facility] Comment on above: Performed By: #### C OMP #### [address] [address] Lymphocytes/100 WBC (Bld) 11.6 % Low 27.2-40.8 [facility] Comment on above: Performed By: #### C OMP #### [address] [address] Lewis Absolute 1.8 x10*3/mcL High 0.1-1.1 [facility] Comment on above: Performed By: #### C OMP #### [address] [address] Monocytes/100 WBC (Bld) 8.9 % Normal 3.7-11.9 [facility] Comment on above: Performed By: #### C OMP #### [facility] [address] [place] [address] Neutro Absolute 16.1 x10*3/mcL High 1.8-7.7 [facility] Comment on above: Performed By: #### C OMP #### [facility] [address] [place] [address] Neutro Auto 79.0 % High 47.2-70.8 [facility] Comment on above: Performed By: #### C OMP #### [facility] [address] [place] [address] Neurosurgery Progress Noteon 08-22-2022 Neurosurgery Progress Note [...] mg, Oral, qAM baclofen, 5 mg, Oral, [id number]-[id number] Times bisacodyl, 10 mg= 1 supp, Rectal, [...] Dose: 08/21/22 17:00:00 EDT, Dispense From Location: [address], 08/21/22 16:37:00 EDT baclofen, 5 mg, Oral, Tab, [id number]-[id number] Times, First Dose: 08/21/22 22:00:00 EDT, Dispense From Location: [address], 08/21/22 16:37:00 EDT bisacodyl, 10 mg, Rectal, Supp, Once, First Dose: 08/22/22 6:59:00 EDT, Stop Date: 08/22/22 6:59:00 EDT, Dispense From Location: [address], 08/22/22 6:59:00 EDT bisacodyl, 10 mg, Rectal, Supp, Daily, PRN constipation, First Dose: 08/22/22 9:00:00 EDT, Dispense From Location: [address], 08/22/22 9:00:00 EDT ceFAZolin, 2 g, IV Piggyback, Soln-IV, q8hr, infuse over 30 minutes, First Dose: 08/21/22 20:00:00 EDT, Dispense From Location: [address], Prophylaxis- Pre/Post-Op, 08/21/22 20:00:00 EDT docusate, 100 mg, Oral, Cap, BID, First Dose: 08/21/22 21:00:00 EDT, Dispense From Location: [address], 08/21/22 16:37:00 EDT ferrous sulfate, 325 mg, Oral, Tab, BID, First Dose: 08/21/22 21:00:00 EDT, Dispense From Location: [address], 08/21/22 16:37:00 EDT hydrALAZINE, 10 mg, IV Push, Injection, q10min, PRN hypertension, First Dose: 08/21/22 16:37:00 EDT, Dispense From Location: [address], 08/21/22 16:37:00 EDT labetalol, 10 mg, IV Push, Injection, q10min, PRN hypertension, First Dose: 08/21/22 16:37:00 EDT, Dispense From Location: [address], 08/21/22 16:37:00 EDT magnesium hydroxide, 30 mL, Oral, Susp, TID, First Dose: 08/21/22 22:00:00 EDT, Dispense From Location: [address], 08/21/22 16:37:00 EDT multivitamin with minerals, 1 tabs, Oral, Tab, Daily, First Dose: 08/22/22 9:00:00 EDT, Dispense From Location: [address], 08/21/22 16:37:00 EDT ondansetron, 4 mg, IV Push, Injection, q6hr, PRN nausea/vomiting, First Dose: 08/21/22 15:08:00 EDT, Dispense From Location: [facility], 08/21/22 15:08:00 EDT oxyCODONE-acetaminophe n, 1 tabs, Oral, Tab, q4hr, PRN moderate pain [4-6 on pain scale], First Dose: 08/21/22 16:37:00 EDT, Dispense From Location: [address], 08/21/22 16:37:00 EDT oxyCODONE-acetaminophe n, 2 tabs, Oral, Tab, q4hr, PRN severe pain [7-10 on pain scale], First Dose: 08/21/22 16:37:00 EDT, Dispense From Location: [address], 08/21/22 16:37:00 EDT sodium chloride, 10 mL, IV Push, Injection, As Indicated, PRN flush, First Dose: 08/21/22 16:37:00 EDT, Dispense From Location: [address], 08/21/22 16:37:00 EDT ADA Diet Ambulate Basic Metabolic Profile Blood Glucose Monitoring POC Cinch Loc Brace (EXOS Brace) Consult to Short Piece Handler Incentive Spirometry Nursing to Encourage Intake and Output Mechanical Compression Device Neurological Checks Notify Provider Occupational Therapy Evaluation and Treatment Inpatient Oxygen Therapy Peripheral IV Insert and Maintain Physical Therapy Evaluation and Treatment Inpatient Pulse Oximetry Continuous Pulse Oximetry Continuous Resuscitation Status Straight Catheter Straight (more content not included)... Normal [facility] POC Glucose Randomon 023 Glucose [Mass/Vol] 124 mg/dL High 70-99 [facility] Comment on above: Performed By: #### C OMP #### [facility] [address] [place] [address] Glucose [Mass/Vol] 120 mg/dL High 70-99 [facility] Comment on above: Performed By: #### C [id number] ####[facility] [place] [address] Neurosurgery Progress Noteon 08-21-2022 Neurosurgery Progress Note [...] ceFAZolin, 2 g= 50 mL, IV Piggyback, Drug Abuse Worker Dilaudid, 0.5 mg= 0.5 mL, IV Push, q15min, PRN diphenhydrAMINE, 25 mg= 0.5 mL, IV Push, q6hr, PRN fentaNYL, 50 mcg= 1 mL, IV Push, q5min, PRN fentaNYL RETAIL BRAND AMBASSADOR, 300 mcg= 30 mL, IV RETAIL BRAND AMBASSADOR, [id number] Times, PRN lisinopril, 2.5 mg, Oral, Daily [...] Dose: 08/21/22 9:00:00 EDT, Dispense From Location: [employer], 08/21/22 6:35:00 EDT ceFAZolin, 2 g, IV Piggyback, Soln-IV, Drug Abuse Worker, infuse over 30 minutes, First Dose: 08/21/22 0:15:00 EDT, Dispense From Location: [facility], Prophylaxis- Pre/Post-Op, 08/21/22 0:15:00 EDT diphenhydrAMINE, 25 mg, IV Push, Injection, q6hr, PRN itching, First Dose: 08/21/22 15:08:00 EDT, Dispense From Location: [facility], 08/21/22 15:08:00 EDT fentaNYL, 300 30 mcg mL, IV RETAIL BRAND AMBASSADOR, Loading Dose (mcg): 25, RETAIL BRAND AMBASSADOR Dose (mcg): 10, Lockout Interval (min): 8, Continuous Dose (mcg/hr): 25, 4-Hour Limit (mcg): 300, 2.5 mL/hr, pain PRN, Start Date: 08/21/22 15:08:00 EDT, [facility]pense [facility] lisinopril, 2.5 mg, Oral, Tab, Daily, First Dose: 08/21/22 9:00:00 EDT, Dispense From Location: [employer] 08/21/22 6:35:00 EDT metFORMIN, 500 mg, Oral, Tab, BID, First Dose: 08/21/22 9:00:00 EDT, Dispense From Location: [employer] 08/21/22 6:35:00 EDT nalbuphine, 2.5 mg, IV Push, Injection, q6hr, PRN refractory itching, First Dose: 08/21/22 15:08:00 EDT, Dispense From Location: [employer] 08/21/22 15:08:00 EDT omeprazole, 40 mg, Oral, Cap-DR, Daily, First Dose: 08/21/22 7:00:00 EDT, Dispense From Location: [employer] 08/21/22 6:35:00 EDT ondansetron, 4 mg, IV Push, Injection, q6hr, PRN nausea/vomiting, First Dose: 08/21/22 15:08:00 EDT, Dispense From Location: [employer] 08/21/22 15:08:00 EDT pregabalin, 100 mg, Oral, Cap, BID, First Dose: 08/21/22 9:00:00 EDT, Dispense From [facility], 08/21/22 6:35:00 EDT Admit to [...] reassess in am Electronically signed by Tylor AKMARA MD, Delfino Freeman 08/21/22 15:[address] [facility] Operative Reporton 3 Operative Report Indication [...] with locally harvested autograft from laminectomy and Dinero Limitedtronic elevate expandable cage 8-12 mm; posterolateral arthrodesis L3-L4 and L5 bilaterally with locally harvested autograft and small kit infuse from Medtr[employer] due to chronic nicotine abuse; transpedicular fixation L3, L4, L5 bilaterally with Medtronic Osteogrip screws 6.5 mm in diameter; resection of juxta articular facet cyst left L4-5; computer-assisted hardware placement using Intuit Stealth station and Intuit O-arm Surgeon(s) Delfino Snider III, MD (Surgeon - Primary) Web Press Operator Dasha Waggoner PA-C (Network Operations Center Technician) Anesthesia General Opal BOWIE, Maulik Padron (Service Representative) Koko Eugene (Provider) Estimated Blood Loss 300.0 [...] is secured. Patient is carefully turned onto [facility] operating room table and head and [...] spinous pro (more content not included)... Normal [facility] POC Glucose Randomon 023 Glucose [Mass/Vol] 152 mg/dL High 70-99 [facility] Comment on above: Performed By: #### C OMP #### [facility] [address] [place] [address] Glucose [Mass/Vol] 206 mg/dL High 70-99 [facility] Comment on above: Performed By: #### C D:[id number] ####[facility] [place] [address] Glucose [Mass/Vol] 179 mg/dL High 70-99 [facility] Comment on above: Performed By: #### C D:[id number] ####[facility] [place] [address] XR Spine Lumbosacral 4 Views + in [...] Electronically Signed in Other Vendor System) Normal [facility] Provider Letteron 08-11-2022 Provider Letter Gayla Martinez CNP [address] [place] [phone] Re: Stephan López Date of Visit: 08/10/2022 Dear Gayla Martinez CNP, Let me know if you have any questions or concerns. Sincerely, Lin Cintron Providers: [CC Letter Providers Please see attached lab results The following document(s) were included in the letter: August 10, 2022 13:56:47 EDT - (08/10/2022) Reminder Message Normal [facility] .UA Microscp Aon 08-10-2022 UA Hyline Cast Qual 3-5 Normal Negative [facility] Comment on above: Performed By: #### C OMP #### [address] [address] UA Mucus Present Abnormal Absent [facility] Comment on above: Performed By: #### C OMP #### [address] [address] UA RBC Quant 0 /HPF Normal 0-5 [facility] Comment on above: Performed By: #### C OMP #### [address] [address] UA Squepi Cells Quant 2 /HPF Normal 0-29 [facility] Comment on above: Performed By: #### C OMP #### [address] [address] UA WBC Quant 0 /HPF Normal 0-5 [facility] Comment on above: Performed By: #### C OMP #### [address] [address] .eGFRon 08-10-2022 GFR/1.73 sq M.predicted MDRD (S/P/Bld) [Vol rate/Area] mL/min/{1.73_m2} Normal >=60 [facility] Comment on above: Result Comment: [facility] have implemented the eGFR calculation approach [...] = years Performed By: #### E GFR ####[place] [address] ABO/Rhon 08-10-2022 ABO/Rh ABO/Rh: O NEG Normal [facility] Comment on above: Performed By: #### A BORH ####[address] [address] ABSC Autoon 08-10-2022 ABSC Auto Negative Normal [facility] Comment on above: Performed By: #### A SA ####[place] [id number] CBC w/ Diffon 08-10-2022 Erythrocyte distribution width (RBC) [Ratio] 13.3 % Normal 11.6-14.8 [facility] Comment on above: Performed By: #### C BC ####[address] [address] Hematocrit (Bld) [Volume fraction] 44.0 % Normal 36.0-46.0 [facility] Comment on above: Performed By: #### C BC ####[place] [id number] Hemoglobin (Bld) [Mass/Vol] 15.0 g/dL Normal 12.0-16.0 [facility] Comment on above: Performed By: #### C BC ####[address] [address] MCH (RBC) [Entitic mass] 32.6 pg Normal 27.0-35.0 [facility] Comment on above: Performed By: #### C BC ####[address] [address] MCHC 34.0 % Normal 31.0-37.0 [facility] Comment on above: Performed By: #### C BC ####[address] [address] MCV (RBC) [Entitic vol] 95.8 fL Normal 80.0-100.0 [facility] Comment on above: Performed By: #### C BC ####[address] [address] Platelet 298 x10*3/mcL Normal 150-350 [facility] Comment on above: Performed By: #### C BC ####[address] [address] Platelet mean volume (Bld) [Entitic vol] 10.1 fL Normal 6.7-10.6 [facility] Comment on above: Performed By: #### C BC ####[address] [address] RBC 4.59 x10*6/mcL Normal 3.80-5.20 [facility] Comment on above: Performed By: #### C BC ####[address] [address] WBC 12.9 x10*3/mcL High 4.5-11.0 [facility] Comment on above: Performed By: #### C BC ####[address] [address] CMPon 08-10-2022 Albumin [Mass/Vol] 4.4 g/dL Normal 3.2-4.9 [facility] Comment on above: Performed By: #### C OMP #### [address] [address] Albumin/Globulin [Mass ratio] 1.4 {ratio} Normal 1.1-2.2 [facility] Comment on above: Performed By: #### C OMP #### [address] [address] Alk Phos 75 IU/L Normal 32-91 [facility] Comment on above: Performed By: #### C OMP #### [address] [address] ALT [Catalytic activity/Vol] 14 U/L Normal 14-54 [facility] Comment on above: Performed By: #### C OMP #### [address] [address] Anion gap [Moles/Vol] 13 mmol/L Normal 7-17 [facility] Comment on above: Performed By: #### C OMP #### [address] [address] AST [Catalytic activity/Vol] 20 U/L Normal 15-41 [facility] Comment on above: Performed By: #### C OMP #### [address] [address] Bili Total 0.6 mg/dL Normal 0.3-1.2 [facility] Comment on above: Performed By: #### C OMP #### [address] [address] Calcium [Mass/Vol] 9.3 mg/dL Normal 8.5-10.3 [facility] Comment on above: Performed By: #### C OMP #### [address] [address] Chloride [Moles/Vol] 103 mmol/L Normal 98-110 [facility] Comment on above: Performed By: #### C OMP #### [address] [address] CO2 [Moles/Vol] 24 mmol/L Normal 22-32 [facility] Comment on above: Performed By: #### C OMP #### [address] [address] Creatinine [Mass/Vol] 0.85 mg/dL Normal 0.44-1.03 [facility] Comment on above: Performed By: #### C OMP #### [address] [address] Glucose [Mass/Vol] 108 mg/dL High 70-99 [facility] Comment on above: Performed By: #### C OMP #### [address] [address] Potassium [Moles/Vol] 3.7 mmol/L Normal 3.4-4.8 [facility] Comment on above: Performed By: #### C OMP #### [address] [address] Protein [Mass/Vol] 7.5 g/dL Normal 6.5-8.1 [facility] Comment on above: Performed By: #### C OMP #### [address] [address] Sodium [Moles/Vol] 136 mmol/L Normal 133-142 [facility] Comment on above: Performed By: #### C OMP #### [address] [address] Urea nitrogen [Mass/Vol] 15 mg/dL Normal 8-26 [facility] Comment on above: Performed By: #### C OMP #### [address] [address] Urea nitrogen/Creatinine [Mass ratio] 17.6 mg/mg Normal 10.0-20.0 [facility] Comment on above: Performed By: #### C OMP #### [address] [address] Diff Autoon 08-10-2022 Baso Absolute 0.1 x10*3/mcL Normal 0.0-0.2 [facility] Comment on above: Performed By: #### . Automated Diff #### [address] [place] [address] Basophils/100 WBC (Bld) 0.4 % Normal 0.0-1.5 [facility] Comment on above: Performed By: #### . Automated Diff #### [address] [address] Eos Absolute 0.1 x10*3/mcL Normal 0.0-0.4 [facility] Comment on above: Performed By: #### . Automated Diff #### [address] [address] Eosinophils/100 WBC (Bld) 0.9 % Normal 0.0-5.4 [facility] Comment on above: Performed By: #### . Automated Diff #### [address] [address] Lymph Absolute 3.8 x10*3/mcL Normal 1.0-4.8 [facility] Comment on above: Performed By: #### . Automated Diff #### [address] [address] Lymphocytes/100 WBC (Bld) 29.6 % Normal 27.2-40.8 [facility] Comment on above: Performed By: #### . Automated Diff #### [address] [address] Lewis Absolute 0.8 x10*3/mcL Normal 0.1-1.1 [facility] Comment on above: Performed By: #### . Automated Diff #### [address] [address] Monocytes/100 WBC (Bld) 5.9 % Normal 3.7-11.9 [facility] Comment on above: Performed By: #### . Automated Diff #### [address] [address] Neutro Absolute 8.1 x10*3/mcL High 1.8-7.7 [facility] Comment on above: Performed By: #### . Automated Diff #### [address] [address] Neutro Auto 63.2 % Normal 47.2-70.8 [facility] Comment on above: Performed By: #### . Automated Diff #### [address] [address] HbA1c w/Rflx Fructosamineon 08-10-2022 Glucose [Mass/Vol] 128 mg/dL High 68-114 [facility] Comment on above: Result Comment: Math ematical Calc approx. The mean gluc equivalency of A1c Performed By: #### C OMP #### [address] [address] Hgb A1c 6.1 % A1c High 4.0-5.6 [facility] Comment on above: Result Comment: Refe rence Range: 4.0 - 5.6 % Normal 5.7 - 6.4 % Pre-Diabetes > 6.5 % Diabetes Performed By: #### C OMP #### [address] [address] PTon 08-10-2022 INR Coag (PPP) [Relative time] 1.0 {INR} Normal <=3.5 [facility] Comment on above: Result Comment: INR has no normal range. INR Therapeutic range is: 2.0-3.0 (AF, CVA, TIAs, DVT prophylaxis, acute DVT) 2.5-3.5 ([facility] heart valves, recurrent thrombosis/emboli) Performed By: #### C OMP #### [address] [address] PT Coag (PPP) [Time] 10.7 s Normal 9.3-11.9 [facility] Comment on above: Performed By: #### C OMP #### [address] [address] PTTon 08-10-2022 aPTT Coag (Bld) [Time] 20.9 s Normal 20.6-29.2 [facility] Comment on above: Performed By: #### P TT ####[address] [address] Provider Letteron 08-10-2022 Provider Letter Gayla Martinez CNP [address] [place] [address] Re: Stephan López Date of Visit: 08/10/2022 Dear Gayla Martinez CNP, Let me know if you have any questions or concerns. Sincerely, Lin Cintron Providers: [CC Letter Providers Please see attached lab results The following document(s) were included in the letter: August 10, 2022 13:04:48 EDT - (08/10/2022) Reminder Message Normal [facility] Provider Letter Gayla Martinez CNP [address] [place] [address] Re: Stephan López Date of Visit: 08/10/2022 Dear Gayla Martinez CNP, Let me know if you have any questions or concerns. Sincerely, Lin Cintron Providers: [CC Letter Providers Please see attached ECG results The following document(s) were included in the letter: August 10, 2022 13:05:57 EDT - (08/10/2022) Reminder Message Normal [facility] UA w Culture if Indon 2022 Color (U) Yellow Normal [facility] Comment on above: Performed By: #### U CI ####[address] [address] Ketones Ql (U) Negative Normal Negative [facility] Comment on above: Performed By: #### U CI ####[address] [address] UA Blood Negative Normal Negative [facility] Comment on above: Performed By: #### U CI ####[address] [address] [address]A Clarity Clear Normal [facility] Comment on above: Performed By: #### U CI ####[address] [address] UA Glucose Normal Normal Negative [facility] Comment on above: Performed By: #### U CI ####[address] [address] UA Leukocyte Esterase Negative Normal Negative [facility] Comment on above: Performed By: #### U CI ####[place] [address] UA Nitrite Negative Normal Negative [facility] Comment on above: Performed By: #### U CI ####[place] [address] UA pH 5.0 Normal 4.5 - 7.8 [facility] Comment on above: Performed By: #### U CI ####[place] [address] UA Protein 10 mg/dL Normal Negative [facility] Comment on above: Performed By: #### U CI ####[place] [address] UA Source Clean Catch Normal [facility] Comment on above: Performed By: #### U CI ####[place] [address] UA Spec Grav 1.025 Normal 1.003-1.035 [facility] Comment on above: Performed By: #### U CI ####[place] [address] UA Urobilinogen Normal Normal 0.2 - 1.0 [facility] Comment on above: Performed By: #### U CI ####[place] [address] Urobilinogen (U) [Mass/Vol] Negative Normal Negative [facility] Comment on above: Performed By: #### U CI ####[place] [address] XR Chest 2 Viewson 3 XR Chest [...] Electronically Signed in Other Vendor System) Normal [facility] Neurosurgery Office/Clinic N zain 07-23-2022 Neurosurgery Office/Clinic Note Chief Complaint Patient is being seen for a back follow up. History of Present Illness The patient is a pleasant 62-year-old right-handed female with history of fsk-xtgcxby-fgunbdxfr diabetes mellitus diagnosed in 2009, chronic nicotine [...] (provider interpretation): MRI cervical spine 05/29/2022 at [facility] reveals multilevel degenerative disc disease, most [...] overt instability. MRI lumbar spine 04/29/2022 at [facility] reveals multilevel degenerative disc disease. Significant [...] there is (more content not included)... Normal [facility] Neurosurgery Office/Clinic Note Chief Complaint Patient [...] Sibling. I (more content not included)... Normal [facility] Office Visiton 07-03-2022 Follow-up visit [id number] James López 1960 F Date Provider Department Center 07/03/2022 INA JONESevjavier Ramsay Family History Problem Relation Age of Onset Other Mother Heart attack Father Other Father Other Father Other Maternal Grandmother Family Status - Relation Status Age at Mother Father Maternal Grandmother Level of Service:79243 [place] OFFICE/OUTPATIENT ESTABLISHED LOW [facility] 20-29 MIN Reason for Visit and Comments: Hypertension [679911] pericardial effusion [Other] Normal [facility] Neurosurgery Office/Clinic N oteon 06-24-2022 Neurosurgery Office/Clinic Note Chief Complaint Patient is being seen for a back follow up. History of Present Illness The patient is a pleasant 62-year-old right-handed female with history of gyl-crwkgpa-wyiyfaebg diabetes mellitus diagnosed in 2009, chronic nicotine [...] (provider interpretation): MRI cervical spine 05/29/2022 at [facility] reveals multilevel degenerative disc disease, most [...] overt instability. MRI lumbar spine 04/29/2022 at [facility] reveals multilevel degenerative disc disease. Significant [...] measuring appro (more content not included)... Normal [facility] PROF CHEM 8 (BAS METB)on Anion gap [Moles/Vol] 12.9 mmol/L Normal [facility] Comment on above: Performed By: #### C BC #### [facility] [address] [place] [address] [address] Yariel Herrera Calcium [Mass/Vol] 9.0 mg/dL Normal 8.5-10.1 [facility] Comment on above: Performed By: #### C BC #### [facility] [address] [place] [address] [address] Yariel Herrera Chloride [Moles/Vol] 106 mmol/L Normal 98-107 [facility] Comment on above: Performed By: #### C BC #### [facility] [address] [place] [address] [address] Yariel Herrera CO2 [Moles/Vol] 28.3 mmol/L Normal 21.0-32.0 [facility] Comment on above: Performed By: #### C BC #### [facility] [address] [place] [address] [address] Yariel Herrera Creatinine [Mass/Vol] 0.81 mg/dL Normal 0.55-1.02 [facility] Comment on above: Performed By: #### C BC #### [facility] [address] [place] [address] [address] Yariel Herrera EGFR-AF EGYPTIAN >60 Normal >=60 [facility] Comment on above: Performed By: #### C BC #### [facility] [address] [place] [address] [address] Yariel Herrera EGFR-NON AF EGYPTIAN >60 Normal >=60 [facility] Comment on above: Performed By: #### C BC #### [facility] [address] [place] [address] Dr. Yariel Herrera Glucose [Mass/Vol] 103 mg/dL Normal 74-106 [facility] Comment on above: Performed By: #### C BC #### [facility] [address] [place] [address] Dr. Yariel Herrera Potassium [Moles/Vol] 4.2 mmol/L Normal 3.5-5.1 [facility] Comment on above: Performed By: #### C BC #### [facility] [address] [place] [address] Dr. Yariel Herrera Sodium [Moles/Vol] 143 mmol/L Normal 136-145 [facility] Comment on above: Performed By: #### C BC #### [facility] [address] [place] [address] Dr. Yariel Herrera Urea nitrogen [Mass/Vol] 9.0 mg/dL Normal 7.0-18.0 [facility] Comment on above: Performed By: #### C BC #### [facility] [address] [place] [address] Dr. Yariel Herrera Urea nitrogen/Creatinine [Mass ratio] 11.1 mg/mg Normal [facility] Comment on above: Performed By: #### C BC #### [facility] [address] [place] [address] [address] Yariel Herrera 37on 06-10-2022 37 Start lisinopril 2.5 mg daily, Have labs/blood checked in 1 week for kidney function Monitor b/p at home 1-2 times/day and record on a log- bring with her to next visit. If you notice a dry, persistent cough- stop lisinopril and call office please. Normal [facility] Office Visiton 06-10-2022 Follow-up visit [id number] James López 1960 F Date Provider Department Center 06/10/2022 INA JONES [facility] Family History Problem Relation Age of Onset Other Mother Heart attack Father Other Father Other Father Other Maternal Grandmother Family Status - Relation Status Age at Mother Father Maternal Grandmother Level of Service:60340 [place] OFFICE/OUTPATIENT ESTABLISHED MOD MDM 30-[address] [facility] ECHOCARDIO M/2D COMPLETEon 0 05-08-2022 ECHOCARDIO M/2D COMPLETE Patient: RODERICK STEPHAN Ceballos. Exam Date: 05/08/2022 : 1960 Gender:F Ordering : CARL WILLIS Admission #: [id number] Family : GAURAV MARTINEZ [facility] Order #: [id number] CLICK HERE TO VIEW EXAM ECHOCARDIOGRAM REPORT [...] Garzon M.D. on 05/08/2022 at 14:20 Normal [facility] ABHINAV by IFAon 01-08-2022 Antinuclear Antibodies, IFA Negative Normal [facility] Comment on above: Result Comment: Nega tive <1:80 Borderline 1:80 Positive >1:80 ICAP nomenclature: AC-0 For more information about Hep-2 cell patterns use ANApatterns.org, the official website for the International Consensus on Antinuclear Antibody (ABHINAV) Patterns (ICAP). Performed By: #### A NAIFA #### [facility] [address] [place] [address] [address] Yariel Herrera CBC AUTO DIFFon 01-05-2022 BASO # 0.1 103/ul Normal 0.0-0.1 [facility] Comment on above: Performed By: #### C BC #### [facility] [address] [place] [address] [address] Yariel Herrera Basophils/100 WBC (Bld) 0.6 % Normal 0.2-2.0 [facility] Comment on above: Performed By: #### C BC #### [facility] [address] [place] [address] Dr. Yariel Herrera EO # 0.2 103/ul Normal 0.0-0.7 [facility] Comment on above: Performed By: #### C BC #### [facility] [address] [place] [address] Dr. Yariel Herrera Eosinophils/100 WBC (Bld) 1.4 % Normal 0.9-7.0 [facility] Comment on above: Performed By: #### C BC #### [facility] [address] [place] [address] Dr. Yariel Herrera Erythrocyte distribution width (RBC) [Ratio] 13.6 % Normal 11.0-15.0 [facility] Comment on above: Performed By: #### C BC #### [facility] [address] [place] [address] Dr. Yariel Herrera Hematocrit (Bld) [Volume fraction] 46.6 % Normal 36.0-48.0 [facility] Comment on above: Performed By: #### C BC #### [facility] [address] [place] [address] Dr. Yariel Herrera Hemoglobin (Bld) [Mass/Vol] 15.4 g/dL Normal 12.0-16.0 [facility] Comment on above: Performed By: #### C BC #### [facility] [address] [place] [address] Dr. Yariel Herrera IG # 0.03 10e3/ul Normal 0.00-0.03 [facility] Comment on above: Performed By: #### C BC #### [facility] [address] [place] [address] Dr. Yariel Herrera IG % 0.2 % Normal 0.0-0.5 [facility] Comment on above: Performed By: #### C BC #### [facility] [address] [place] [address] Dr. Yariel Herrera LYMPH # 4.2 103/ul Critically high 1.2-3.8 [facility] Comment on above: Performed By: #### C BC #### [facility] [address] [place] [address] Dr. Yariel Herrera Lymphocytes/100 WBC (Bld) 31.3 % Normal 20.5-60.0 [facility] Comment on above: Performed By: #### C BC #### [facility] [address] [place] [address] Dr. Yariel Herrera MANUAL DIFF REQ NO Normal [facility] Comment on above: Performed By: #### C BC #### [facility] [address] [place] [address] Dr. Yariel Herrera MCH (RBC) [Entitic mass] 31.6 pg Normal 26.7-34.0 [facility] Comment on above: Performed By: #### C BC #### [facility] [address] [place] [address] Dr. Yariel Herrera MCHC (RBC) [Mass/Vol] 33.0 g/dL Normal 29.9-35.2 [facility] Comment on above: Performed By: #### C BC #### [facility] [address] [place] [address] Dr. Yariel Herrera MCV (RBC) [Entitic vol] 95.7 fL Normal 81.0-99.0 [facility] Comment on above: Performed By: #### C BC #### [facility] [address] [place] [address] Dr. Yariel Herrera MONO # 0.9 103/ul Critically high 0.3-0.8 [facility] Comment on above: Performed By: #### C BC #### [facility] [address] [place] [address] Dr. Yariel Herrera Monocytes/100 WBC (Bld) 6.8 % Normal 1.7-12.0 [facility] Comment on above: Performed By: #### C BC #### [facility] [address] [place] [address] Dr. Yariel Herrera NEUT # 8.0 103/ul Critically high 1.4-6.5 [facility] Comment on above: Performed By: #### C BC #### [facility] [address] [place] [address] Dr. Yariel Herrera Neutrophils/100 WBC (Bld) 59.7 % Normal 43.0-75.0 [facility] Comment on above: Performed By: #### C BC #### [facility] [address] [place] [address] Dr. Yariel Herrera Platelet mean volume (Bld) [Entitic vol] 10.7 fL Normal 9.5-13.5 [facility] Comment on above: Performed By: #### C BC #### [facility] [address] [place] [address] Dr. Yariel Herrera PLT 340 103/ul Normal 150-450 [facility] Comment on above: Performed By: #### C BC #### [facility] [address] [place] [address] Dr. Yariel Herrera RBC 4.87 106/ul Normal 4.20-5.40 [facility] Comment on above: Performed By: #### C BC #### [facility] [address] [place] [address] Dr. Yariel Herrera WBC 13.4 103/ul Critically high 4.0-11.0 [facility] Comment on above: Performed By: #### C BC #### [facility] [address] [place] [address] Dr. Yariel Herrera FREE T4on 01-05-2022 Free T4 [Mass/Vol] 1.06 ng/dL Normal 0.76-1.46 [facility] Comment on above: Performed By: #### C BC #### [facility] [address] [place] [address] Dr. Yariel Herrera PROF 14(COMP METB)on 022 Albumin [Mass/Vol] 3.9 g/dL Normal 3.4-5.0 [facility] Comment on above: Performed By: #### C MP, TSH #### [facility] [address] [place] [address] Dr. Yariel Herrera Albumin/Globulin [Mass ratio] 1.1 {ratio} Normal [facility] Comment on above: Performed By: #### C MP, TSH #### [facility] Laboratory [address] [address] [address] Yariel Herrera ALP [Catalytic activity/Vol] 99 U/L Normal 46-116 [facility] Comment on above: Performed By: #### C MP, TSH #### [facility] [address] [place] [address] Dr. Yariel Herrera ALT [Catalytic activity/Vol] 17 U/L Normal 14-59 [facility] Comment on above: Performed By: #### C MP, TSH #### [facility] [address] [address] [address] Yariel Herrera Anion gap [Moles/Vol] 10.1 mmol/L Normal [facility] Comment on above: Performed By: #### C MP, TSH #### [facility] [address] [place] [address] Dr. Yariel Herrera AST [Catalytic activity/Vol] 14 U/L Critically low 15-37 [facility] Comment on above: Performed By: #### C MP, TSH #### [facility] [address] [place] [address] Dr. Yariel Herrera Bilirubin [Mass/Vol] 0.3 mg/dL Normal 0.2-1.0 [facility] Comment on above: Performed By: #### C MP, TSH #### [facility] [address] [place] [address] Dr. Yariel Herrera Calcium [Mass/Vol] 9.4 mg/dL Normal 8.5-10.1 [facility] Comment on above: Performed By: #### C MP, TSH #### [facility] [address] [place] [address] Dr. Yariel Herrera Chloride [Moles/Vol] 103 mmol/L Normal 98-107 [facility] Comment on above: Performed By: #### C MP, TSH #### [facility] [address] [address] [address] Yariel Herrera CO2 [Moles/Vol] 30.9 mmol/L Normal 21.0-32.0 [facility] Comment on above: Performed By: #### C MP, TSH #### [facility] [address] [place] [address] Dr. Yariel Herrera Creatinine [Mass/Vol] 0.88 mg/dL Normal 0.55-1.02 [facility] Comment on above: Performed By: #### C MP, TSH #### [facility] [address] [place] [address] Dr. Yariel Herrera EGFR-AF EGYPTIAN >60 Normal >=60 [facility] Comment on above: Performed By: #### C MP, TSH #### [facility] [address] [place] [address] Dr. Yariel Herrera EGFR-NON AF EGYPTIAN >60 Normal >=60 [facility] Comment on above: Performed By: #### C MP, TSH #### [facility] [address] [place] [address] Dr. Yariel Herrera Globulin (S) [Mass/Vol] 3.5 g/dL Normal [facility] Comment on above: Performed By: #### C MP, TSH #### [facility] [address] [place] [address] Dr. Yariel Herrera Glucose [Mass/Vol] 117 mg/dL Critically high 74-[address] [facility] Comment on above: Performed By: #### C MP, TSH #### [facility] [address] [place] [address] Dr. Yariel Herrera Potassium [Moles/Vol] 4.0 mmol/L Normal 3.5-5.1 [facility] Comment on above: Performed By: #### C MP, TSH #### [facility] [address] [place] [address] Dr. Yariel Herrera Protein [Mass/Vol] 7.4 g/dL Normal 6.4-8.2 [facility] Comment on above: Performed By: #### C MP, TSH #### [facility] [address] [place] [address] Dr. Yariel Herrera Sodium [Moles/Vol] 140 mmol/L Normal 136-145 [facility] Comment on above: Performed By: #### C MP, TSH #### [facility] [address] [place] [address] Dr. Yariel Herrera Urea nitrogen [Mass/Vol] 18.0 mg/dL Normal 7.0-18.0 [facility] Comment on above: Performed By: #### C MP, TSH #### [facility] [address] [address] [address] Yariel Herrera Urea nitrogen/Creatinine [Mass ratio] 20.5 mg/mg Normal [facility] Comment on above: Performed By: #### C MP, TSH #### [facility] [address] [address] [address] Yariel Herrera TSHon 01-05-2022 TSH 1.380 uIU/mL Normal 0.358-3.740 [facility] Comment on above: Performed By: #### C MP, TSH #### [facility] [address] [place] [address] Dr. Yariel Herrera GLYCOHEMOGLOBIN A1Con 2021 ADA RECOMMENDATION SEE BELOW Normal [facility] Comment on above: Result Comment: ADA RECOMMENDED LIMIT 4.0 - 6.0 ADA THERAPEUTIC TARGET < 7.0 ACTION SUGGESTED > 7.0 Performed By: #### A 1C #### [facility] [address] [address] [address] Yariel Herrera Glucose [Mass/Vol] 137 mg/dL Normal [facility] Comment on above: Performed By: #### A 1C #### [facility] [address] [place] [address] Dr. Yariel Herrera HbA1c (Bld) [Mass fraction] 6.4 % Critically high 4.5-6.2 [facility] Comment on above: Performed By: #### A 1C #### [facility] [address] [place] [address] Dr. Yariel Herrera ECHOCARDIO M/2D COMPLETEon 0 10-16-2021 ECHOCARDIO M/2D COMPLETE Patient: STEPHAN LÓPEZ Exam Date: 10/16/2021 : 1960 Gender:F Ordering : CARL WILLIS Admission #: [id number] Family : Order #: [id number] CLICK HERE TO VIEW EXAM ECHOCARDIOGRAM REPORT [...] Melvin M.D. on 10/16/2021 at 17:12 Normal [facility] ECHOCARDIO M/2D COMPLETEon 0 09-16-2021 ECHOCARDIO M/2D COMPLETE Patient: STEPHAN LÓPEZ Exam Date: 09/16/2021 : 1960 Gender:F Ordering : GAURAV MARTINEZ [facility] Admission #: [id number] Family : Order #: [id number] CLICK HERE TO VIEW EXAM ECHOCARDIOGRAM REPORT [...] M.D. on 09/17/2021 at 13:02 Normal [facility] CBC AUTO DIFFon 08-04-2021 BASO # 0.1 103/ul Normal 0.0-0.1 [facility] Comment on above: Performed By: #### C BC #### [facility] [address] [address] [address] Yariel Herrera Basophils/100 WBC (Bld) 0.6 % Normal 0.2-2.0 [facility] Comment on above: Performed By: #### C BC #### [facility] [address] [address] [address] Yariel Herrera EO # 0.1 103/ul Normal 0.0-0.7 [facility] Comment on above: Performed By: #### C BC #### [facility] [address] [address] [address] Yariel Herrera Eosinophils/100 WBC (Bld) 0.9 % Normal 0.9-7.0 [facility] Comment on above: Performed By: #### C BC #### [facility] [address] [place] [address] Dr. Yariel Herrera Erythrocyte distribution width (RBC) [Ratio] 13.8 % Normal 11.0-15.0 [facility] Comment on above: Performed By: #### C BC #### [facility] [address] [place] [address] Dr. Yariel Herrera Hematocrit (Bld) [Volume fraction] 47.1 % Normal 36.0-48.0 [facility] Comment on above: Performed By: #### C BC #### [facility] [address] [place] [address] Dr. Yariel Herrera Hemoglobin (Bld) [Mass/Vol] 15.2 g/dL Normal 12.0-16.0 [facility] Comment on above: Performed By: #### C BC #### [facility] [address] [place] [address] Dr. Yariel Herrera IG # 0.04 10e3/ul Critically high 0.00-0.03 [facility] Comment on above: Performed By: #### C BC #### [facility] [address] [place] [address] Dr. Yariel Herrera IG % 0.3 % Normal 0.0-0.5 [facility] Comment on above: Performed By: #### C BC #### [facility] [address] [place] [address] Dr. Yariel Herrera LYMPH # 3.7 103/ul Normal 1.2-3.8 [facility] Comment on above: Performed By: #### C BC #### [facility] [address] [place] [address] Dr. Yariel Herrera Lymphocytes/100 WBC (Bld) 30.6 % Normal 20.5-60.0 [facility] Comment on above: Performed By: #### C BC #### [facility] [address] [place] [address] Dr. Yariel Herrera MANUAL DIFF REQ NO Normal [facility] Comment on above: Performed By: #### C BC #### [facility] [address] [address] [address] Yariel Herrera MCH (RBC) [Entitic mass] 32.0 pg Normal 26.7-34.0 [facility] Comment on above: Performed By: #### C BC #### [facility] [address] [address] [address] Yariel Herrera MCHC (RBC) [Mass/Vol] 32.3 g/dL Normal 29.9-35.2 [facility] Comment on above: Performed By: #### C BC #### [facility] [address] [address] [address] Yariel Herrera MCV (RBC) [Entitic vol] 99.2 fL Critically high 81.0-99.0 [facility] Comment on above: Performed By: #### C BC #### [facility] [address] [place] [address] Dr. Yariel Herrera MONO # 0.9 103/ul Critically high 0.3-0.8 The [facility] Comment on above: Performed By: #### C BC #### [facility] [address] [place] [address] Dr. Yariel Herrera Monocytes/100 WBC (Bld) 7.4 % Normal 1.7-12.0 The [facility] Comment on above: Performed By: #### C BC #### [facility] [address] [place] [address] Dr. Yariel Herrera NEUT # 7.3 103/ul Critically high 1.4-6.5 The [facility] Comment on above: Performed By: #### C BC #### [facility] [address] [place] [address] Dr. Yariel Herrera Neutrophils/100 WBC (Bld) 60.2 % Normal 43.0-75.0 The [facility] Comment on above: Performed By: #### C BC #### [facility] [address] [place] [address] Dr. Yariel Herrera Platelet mean volume (Bld) [Entitic vol] 11.7 fL Normal 9.5-13.5 [facility] Comment on above: Performed By: #### C BC #### [facility] [address] [address] [address] Yariel Herrera PLT 330 103/ul Normal 150-450 [facility] Comment on above: Performed By: #### C BC #### [facility] [address] [place] [address] Dr. Yariel Herrera RBC 4.75 106/ul Normal 4.20-5.40 [facility] Comment on above: Performed By: #### C BC #### [facility] [address] [place] [address] Dr. Yariel Herrera WBC 12.1 103/ul Critically high 4.0-11.0 [facility] Comment on above: Performed By: #### C BC #### [facility] [address] [place] [address] Dr. Yariel Herrera FREE T3on 08-04-2021 FREE T3 2.46 pg/mlL Normal 2.18-3.98 [facility] Comment on above: Performed By: #### C BC #### [facility] [address] [place] [address] Dr. Yariel Herrera FREE T4on 08-04-2021 Free T4 [Mass/Vol] 1.08 ng/dL Normal 0.76-1.46 [facility] Comment on above: Performed By: #### F T4 #### [facility] [address] [place] [address] Dr. Yariel Herrera PROF 14(COMP METB)on 022 Albumin [Mass/Vol] 4.2 g/dL Normal 3.4-5.0 [facility] Comment on above: Performed By: #### C BC #### [facility] [address] [place] [address] Dr. Yariel Herrera Albumin/Globulin [Mass ratio] 1.2 {ratio} Normal The [facility] Comment on above: Performed By: #### C BC #### [facility] [address] [place] [address] Dr. Yariel Herrera ALP [Catalytic activity/Vol] 87 U/L Normal 46-116 [facility] Comment on above: Performed By: #### C BC #### [facility] [address] [address] [address] Yariel Herrera ALT [Catalytic activity/Vol] 25 U/L Normal 14-59 [facility] Comment on above: Performed By: #### C BC #### [facility] [address] [address] [address] Yariel Herrera Anion gap [Moles/Vol] 13.3 mmol/L Normal [facility] Comment on above: Performed By: #### C BC #### [facility] [address] [address] [address] Yariel Herrera AST [Catalytic activity/Vol] 15 U/L Normal 15-37 [facility] Comment on above: Performed By: #### C BC #### [facility] [address] [place] [address] Dr. Yariel Herrera Bilirubin [Mass/Vol] 0.5 mg/dL Normal 0.2-1.0 [facility] Comment on above: Performed By: #### C BC #### [facility] [address] [address] [address] Yariel Herrera Calcium [Mass/Vol] 9.6 mg/dL Normal 8.5-10.1 [facility] Comment on above: Performed By: #### C BC #### [facility] [address] [address] [address] Yariel Herrera Chloride [Moles/Vol] 103 mmol/L Normal 98-107 [facility] Comment on above: Performed By: #### C BC #### [facility] [address] [address] [address] Yariel Herrera CO2 [Moles/Vol] 28.9 mmol/L Normal 21.0-32.0 [facility] Comment on above: Performed By: #### C BC #### [facility] [address] [address] [address] Yariel Herrera Creatinine [Mass/Vol] 0.84 mg/dL Normal 0.55-1.02 [facility] Comment on above: Performed By: #### C BC #### [facility] [address] [address] [address] Yariel Herrera EGFR-AF EGYPTIAN >60 Normal >=60 [facility] Comment on above: Performed By: #### C BC #### [facility] [address] [address] [address] Yariel Herrera EGFR-NON AF EGYPTIAN >60 Normal >=60 [facility] Comment on above: Performed By: #### C BC #### [facility] [address] [address] [address] Yariel Herrera Globulin (S) [Mass/Vol] 3.4 g/dL Normal [facility] Comment on above: Performed By: #### C BC #### [facility] [address] [place] [address] Dr. Yariel Herrera Glucose [Mass/Vol] 111 mg/dL Critically high 74-106 [facility] Comment on above: Performed By: #### C BC #### [facility] [address] [place] [address] Dr. Yariel Herrera Potassium [Moles/Vol] 4.2 mmol/L Normal 3.5-5.1 [facility] Comment on above: Performed By: #### C BC #### [facility] [address] [place] [address] Dr. Yariel Herrera Protein [Mass/Vol] 7.6 g/dL Normal 6.4-8.2 [facility] Comment on above: Performed By: #### C BC #### [facility] [address] [place] [address] Dr. Yariel Herrera Sodium [Moles/Vol] 141 mmol/L Normal 136-145 [facility] Comment on above: Performed By: #### C BC #### [facility] [address] [place] [address] Dr. Yariel Herrera Urea nitrogen [Mass/Vol] 15.0 mg/dL Normal 7.0-18.0 [facility] Comment on above: Performed By: #### C BC #### [facility] [address] [place] [address] Dr. Yariel Herrera Urea nitrogen/Creatinine [Mass ratio] 17.9 mg/mg Normal [facility] Comment on above: Performed By: #### C BC #### [facility] [address] [address] [address] Yariel Herrera TSHon 08-04-2021 TSH 1.073 uIU/mL Normal 0.358-3.740 [facility] Comment on above: Performed By: #### C BC #### [facility] [address] [address] [address] Yariel Herrera TSH RANGE SEE BELOW Normal [facility] Comment on above: Result Comment: <0.3 4 UIU/ml HYPERTHYROID 0.34-5.60 UIU/ml EUTHYROID >5.60 UIU/ml HYPOTHYROID Performed By: #### C BC #### [facility] [address] [place] [address] Dr. Yariel Herrera Encounters Encounter Date Encounter Type Care Provider Facility Start: 09-30-2023 ambulatory Dasha Sherwood acility:[facility] Start: 05-25-2023 End: 05-26-2023 ambulatory Physician Unavailable Facility:[facility] Start: 05-10-2023 End: 05-11-2023 ambulatory Lara Mar MD Facility:[facility] Start: 05-04-2023 End: 05-05-2023 ambulatory Dasha Waggoner PA-C Facility[facility] Start: 04-26-2023 End: 04-26-2023 ambulatory GAYLA MARTINEZ Not Available Start: 04-08-2023 Clinisync Result Encounter Gayla Martinez [employer] Work Phone: [facility] Unsolicited Start: 04-08-2023 Clinisync Result Encounter Gayla Martinez [employer]ICE [employer]IST Work Phone: [facility] Unsolicited Start: 04-07-2023 Refill Gayla Martinez [employer] SERVICE SPECIALIST Work Phone: [facility] Comment on above: COPD with exacerbati on (CMS/HCC) (Primary Dx) Start: 02-08-2023 End: 02-09-2023 ambulatory Dasha Waggoner PA-C Facility:[facility] Start: 01-25-2023 End: 01-25-2023 ambulatory GAYLA MARTINEZ Not Available Start: 01-19-2023 End: 01-19-2023 [address] HAND [facility] Start: 12-22-2022 End: 12-23-2022 ambulatory Dasha Waggoner PA-C Facility:[facility] Start: 11-26-2022 End: 11-27-2022 ambulatory Dasha Waggoner PA-C Facility:[facility] Start: 11-23-2022 End: 11-24-2022 ambulatory Lara Mar MD Facility: [facility] Start: 10-15-2022 End: 10-16-2022 ambulatory Dasha Waggoner PA-C Facility:[facility] Start: 09-16-2022 End: 09-17-2022 ambulatory Dasha Waggoner PA-C Facility:[facility] Start: 08-21-2022 End: 08-24-2022 Evaluation and management of inpatient Delfino Snider III, MD Facility:[facility] Start: 08-14-2022 End: 08-15-2022 ambulatory Delfino Snider III, MD Facility:[facility] Start: 08-10-2022 End: 08-11-2022 ambulatory Delfino Snider III, MD Facility:[facility] Start: 08-06-2022 ambulatory Delfino Snider III, MD Facility:[facility] Start: 07-23-2022 End: 07-24-2022 ambulatory Dasha HODGES-C [facility] Start: 07-03-2022 End: 07-03-2022 [facility] Start: 06-24-2022 End: 06-25-2022 ambulatory Dasha Waggoner PA-C [facility] Start: 06-17-2022 End: 06-18-2022 ambulatory INA JOHNSON Facility:[facility] Start: 06-10-2022 End: 06-10-[address] [facility] Start: 05-08-2022 End: 05-09-2022 ambulatory CARL WILLIS Facility:[facility] Start: 01-05-2022 End: 01-06-2022 ambulatory CARL WILLIS Facility:[facility] Start: 11-05-2021 End: 11-06-2021 ambulatory FINANCIAL WRITER GAYLA MARTINEZ Facility:[facility] Start: 10-16-2021 End: 10-17-2021 ambulatory CARL WILLIS Facility:[facility] Start: 09-16-2021 End: 09-17-2021 ambulatory FINANCIAL WRITER GAYLA MARTINEZ Facility:[facility] Start: 08-04-2021 End: 08-05-2021 ambulatory GAURAV MARTINEZ Facility:[facility] Procedures Date Procedure Procedure Detail Performing Clinician Start: 04-08-2023 [facility] INFLUENZA A AND B AG Gayla Michelle [employer]ICE SPECIALIST Work Phone: Start: 12-03-2022 Mammography Gayla Ruiz justus [employer] SERVICE SPECIALIST Work Phone: Start: 04-20-2013 Colonoscopy Gayla jerome [employer] SERVICE SPECIALIST Work Phone: Plan of Treatment Date Care Activity Detail Author Start: 09-08-2026 Screening for malign ant neoplasm of colon [facility] Start: 12-04-2023 Screening for malign ant neoplasm of breast Mammogram [facility] Start: 08-22-2023 Influenza vaccination Influenza Vacc ine (#1) [facility] Comment on above: Postponed from 10/23 (Other Medical Reasons) Start: 07-24-2023 Screening for malign ant neoplasm of cervix Cervical Cancer Screening [facility] Comment on above: Postponed from 02/03 (Other Medical Reasons) Start: 05-30-2023 Urine screening for protein Diabetes: Urine Protein Screening [facility] Start: 04-26-2023 Glaucoma screening Diabetes: R etinopathy Screening [facility] Comment on above: Postponed from 02/03 (Other Medical Reasons) Start: 04-26-2023 End: 04-26-2023 Patient encounter procedure 04/26/2023 9:00 AM EST Office Visit [facility] [address] [place] [address] Gayla Martinez, ROSI [address] [place] [address] [facility] Start: 03-05-2023 Hemoglobin A1c measurement Diabetes: Hemoglobin A1C [facility] Start: 02-03-1990 Screening for malign ant neoplasm of cervix HPV/Cotest [facility] Start: 02-03-1981 Screening for malign ant neoplasm of cervix Pap Smear [facility] Start: 1960 Screening for malign ant neoplasm of colon [facility] Immunizations Immunization Date Immunization Notes Care Provider Fa cili 01-06-2022 influenza virus vacc ine, unspecified formulation Gayla Martinez NP Work Phone: [facility] Payers Date Payer Category Payer Private Health Insurance 2022 Medicaid [employer] [id number] 2022-Present [address] [place] [address] [id number] 1960 Unknown [id number] 2..840.1.341761.3.579.2. 593 1960 Unknown [id number] 2..840.1.987719.3.579.2. 593 1960 Unknown [id number] 2.16.840.1.564725.3.579.2. 593 1960 Unknown [id number] 2.16.840.1.467560.3.579.2. 593 1960 Unknown [id number] 2.16.840.1.635619.3.579.2. 593 1960 Unknown [id number] 2.16.840.1.529951.3.579.2. 593 1960 Unknown [id number] 2.16.840.1.475888.3.579.2. 593 1960 Unknown [id number] 2.16.840.1.259279.3.579.2. 1259 1960 Unknown [id number] 2.16.840.1.324322.3.579.2. 1259 1960 Unknown [id number] 2.16.840.1.457907.3.579.2. 196 1960 Unknown [id number] 2.16.840.1.050466.3.579.2. 196 1960 Unknown [id number] 2.16.840.1.101445.3.579.2. 196 1960 Unknown [id number] 2.16.840.1.674461.3.579.2. 196 1960 Unknown [id number] 2.16.840.1.061795.3.579.2. 196 1960 Unknown [id number] 2.16.840.1.235160.3.579.2. 196 1960 Unknown [id number] 2.16.840.1.439728.3.579.2. 196 1960 Unknown [id number] 2.16.840.1.616404.3.579.2. 196 1960 Unknown [id number] 2.16.840.1.875335.3.579.2. 196 1960 Unknown [id number] 2.16.840.1.620191.3.579.2. 196 1960 Unknown [id number] 2.16.840.1.459284.3.579.2. 196 1960 Unknown [id number] 2.16.840.1.568508.3.579.2. 196 1960 Unknown [id number] 2.16.840.1.604506.3.579.2. 196 1960 Unknown [id number] 2.16.840.1.777469.3.579.2. 196 1960 Unknown [id number] 2.16.840.1.582017.3.579.2. 196 1960 Unknown [id number] 2.16.840.1.664730.3.579.2. 196 1960 Unknown [id number] 2.16.840.1.074575.3.579.2. 196 1959 Unknown [id number] 1959 Unknown [id number] Social History Date Type Detail Facility Start: 01-25-2023 Tobacco smoking stat [facility] Smokes tobacco daily [facility] History of tobacco use Cigarette Smoker [facility] Start: 01-25-2023 Cigarettes smoked cu rrent (pack per day) - Reported 0.5 [facility] Start: 01-25-2023 Tobacco use and exposure Smoke less tobacco non-user [facility] Start: 02-08-2023 Alcohol intake Lifetime non-d mariaa (finding) [facility] Start: 01-25-2023 Tobacco use panel [facility] Start: 1960 Sex Assigned At Not on file N [facility] Medical Equipment Procedure Code Equipment Code Equipment Original Text Equi pment Identifier Dates 1 Device Daily as needed. [id number] Clinical Notes 06-10-2022 to 01-19-2023 Note Date & Type Note Facility 01-19-2023 Note Cardiovascular Medic [facility] SUBJECTIVE Chief Complaint Patient presents with Follow-up Hypertension Stephan López is a 62 y.o. female here for follow-up. HPI PMHx: HTN, pericardial effusion, HLD She denies any cardiac concerns today. She has back problems. She is 5 months s/p surgery and she is still recovering. She is following with pain management at [facility]. She is not currently checking her [...] needed. Dante Hand NP [facility] 01-19-2023 Note Patient here for 6 [...] All other systems reviewed and are negative. [facility] 08-24-2022 Note Admission Mat Hayes 62-year-old [...] Condition: Good Diet: ADA 2000 kcal/day Education: [employer] neurosurgery education form Follow-up: As scheduled preoperatively-call [phone] to confirm appointment to be seen in [...] transpedicular fixation L3, L4, L5 bilaterally with Dinero Limitedtronic Osteogrip screws 6.5 mm in diameter; resection of juxta articular facet cyst left L4-5; computer-assisted hardware placement using Intuit Stealth station and Intuit O-arm Medications Home atorvastatin 20 mg oral [...] oral capsule, 500 mg= 1 caps, Oral, q2kc-Rxqmciew Times magnesium hydroxide 8% oral suspension, 1.2 [...] tabs, 0 Refill(s), 08/31/22 7:48:00 EDT, Pharmacy: [facility] #[id number] Discharge Patient 3. Lumbar radiculopathy Ordered: Discharge Patient 4. Nicotine dependence Ordered: Discharge Patient Orders: ascorbic acid, 1 tabs, Oral, q8hr, # 270 tabs, 0 Refill(s), Pharmacy: [facility] #[id number] cephalexin, 500 mg, Oral, Cap, [id number] Times for 12 doses, First Dose: 08/24/22 12:00:00 EDT, Stop Date: 08/27/22 11:59:00 EDT, Dispense From Location: [address], Prophylaxis- Pre/Post-Op, 08/24/22 7:40:00 EDT cephalexin, 1 caps, Oral, [id number] Times, X 3 days, # 12 caps, 0 Refill(s), 08/27/22 7:47:00 EDT, Pharmacy: [facility] #[id number] docusate, 1 caps, Oral, BID, # 14 caps, 0 Refill(s), Pharmacy: [facility] #[id number] ferrous sulfate, 1 tabs, Oral, BID, # 60 tabs, 0 Refill(s), Pharmacy: [facility] #[id number] magnesium hydroxide, 15 mL, Ora (more content not included)... [facility]03-2022 [facility] Note Hypertension is well controlled 120/84 Reviewed b/p log and overall her b/p is controlled with some outliers of high and low b/p. Renal function was normal s/p starting lisinopril [facility] 07-03-2022 Note Patient here for 1 [...] All other systems reviewed and are negative. [facility] 07-03-2022 Note [facility]TP CARDIOLOGY PROGR ESS [...] effusion No concerning symptoms RTC [address] [facility] 06-10-2022 Note F/U with PCP [facility] 06-10-2022 Note Hypertension is 145/ 99 uncontrolled Will start lisinopril 2.5 mg daily BMP in 1 week Start monitoring b/p at home and record on a log, RTC 1 month D/W pt about side effects of 1st dose low b/p and dry persistent cough [facility] 06-10-2022 Note Recent echo with not ed trivial effusion. No recent illness or any concerning symptoms [facility] 06-10-2022 Note [facility]TP CARDIOLOGY PROGR ESS NOTE HPI: Stephan López is a 62 y.o. female here for routine f/U for pericardial effusion. At the time, patient denied any cardiac complaints. She denied any chest pain or shortness of breath. She denies any cardiac history. No history of RI, PCI, CHF. Repeat echocardiogram demonstrated a trivial [...] with PCP RTC 1 month for re-evaluation [facility] 06-10-2022 Note Patient here for 6 m o follow up pericardial effusion. Had echo in April 2022. Denies chest pain and SOB. Review of Systems Musculoskeletal: Positive for back pain. All other systems reviewed and are negative. [facility] Evaluation note Diagnosis COPD with exacerbation [...] DATE CREATED AUTHOR 06/21/[address] [facility] DATE CREATED AUTHOR AUTHOR'S ORGANIZ ATION 03/20/2023 [facility] DATE CREATED AUTHOR AUTHOR'S ORGANIZ ATION 04/26/2023 [facility] EPIC DATE CREATED AUTHOR AUTHOR'S MAUREEN YAN 05/26/2023 [facility] Care Teams (unrecognized sec tion and content) [employer] Relationship Specialty Start Date End Date Jim Deleon MD [address] [place] [phone] PCP - General Family Medicine 09/18/22 Gayla Martinez NP [address] [place] [phone] Referring Physician Nurse Practitioner 09/18/22 [employer] Relationship Specialty Start Date End Date Jim Deleon MD [address] [place] [phone] PCP - General Family Medicine 09/18/22 Gayla Martinez NP [address] [place] [phone] Referring Physician Nurse Practitioner 09/18/22 FOR RECORDS [...] BE BASED ON THE PRIMARY CLINICAL RECORDS. [employer] provides no warranty or guarantee of the accuracy or completeness of information in this document.
[2023-06-14 11:30] VITALS: BP 124/77; BP 126/77; PULSE 91; PULSE 94; O2SAT 91
--- NOTE | 2023-06-14 11:31 | W.PM.PROCNOT ---
Date of procedure: 06/14/23 Pre-op diagnosis: Sacroiliitis, right Post-op diagnosis: same as pre-op Procedure: Procedure: Right sacroiliac joint injection Medications: Bupivacaine 0.25% 3cc, kenalog 40mg After informed consent was obtained, the patient was brought to the medical procedure unit and placed in the prone position, when a timeout was completed verifying correct patient, procedure, site, positioning, implant, and/or special equipment.? The skin overlying the area was prepped and draped in standard sterile fashion using alcohol.? A 25-gauge needle was inserted towards the right sacroiliac joint under direct fluoroscopic imaging.? Needle tip was advanced until the joint was encountered.? We instilled a total of 3 mL of solution.? Postoperatively needles were removed.? The patient tolerated the procedure well without complication.? The patient reported reduction in pain symptoms postoperatively. Anesthesia: Local Surgeon: Lara Mar Pathology: none sent Condition: stable Disposition: no change
[2023-06-14] MEDS: BUPIVACAINE HCL 0.25% PF 25 MG/10 ML VIAL 2 ML INJ (11:32)
[2023-06-14] MEDS: TRIAMCINOLONE ACETONIDE 40 MG/ML VIAL INJ (11:32)
[2023-06-14] MEDS: LIDOCAINE HCL 2% PF 100 MG/5 ML VIAL INJ (11:32)
[2023-06-14] MEDS: IOHEXOL 240 MG/ML - 10 ML VIAL 12 MG INJ (11:32)
== END 2023-06-14 11:34 | disposition home or self-care (01) ==
LOC: SURGOUT 10:46
PROVIDERS: PCP Nurse Practitioner; Visit Provider Anesthesiology
DX: M46.1 Sacroiliitis, not elsewhere classified (principal)
CPT/HCPCS: 27096; 36415; 82948; Q9966

== ENCOUNTER 2023-06-23 12:51 | Outpatient (OUT) | payer OTHER, SELFPAY ==
--- NOTE | 2023-06-23 13:13 | P.CN_ITS ---
Consult Note: HPI Data of Consult Patient: known to practice within the last 3 years Requesting Physician: Gwendolyn Salamanca NP Primary Care Provider: Gayla Martinez NP Consult Narrative Reason for consult: f/u Narrative: Stephan muniz pleasant 62 year old female presents for evaluation and management of chronic back pain. Today pain 5.5/10 in right low back and right hip, describes as a sharp burning pain. Patient has a hx of L3,4,5 fusion. Patient utilizing external bone stimulator. Patient has found mild benefit to current medication regimen, no side effects. Patient continues to have moderate to severe pain that is severely impacting functional ability, DIONNA 60%. Patient has completed aquatherapy without improvement. Recently underwent Bilateral L5- S1 transforaminal epidural steroid injection with 80% improvement in low back and radicular pain. Recent right SIJ injection provided 85% pain relief for 2 days, no ongoing improvement. cc:: CC: Gwendolyn Salamanca NP Review of Systems ROS Status of ROS 10 or more systems reviewed and unremark able except as noted in history and below [facility] Medical History (Updated 06/23/23 @ 13:14 by Gwendolyn Salamanca NP) Low back pain ?M54.50 - Low back pain, unspecified (ICD-10) Osteoarthritis ?M19.90 - Unspecified osteoarthritis, unspecified site (ICD-10) Diabetes ?E11.9 - Type 2 diabetes mellitus without complications (ICD-10) COPD (chronic obstructive pulmonary disease) ?J44.9 - Chronic obstructive pulmonary disease, unspecified (ICD-10) Smoker ?F17.200 - Nicotine dependence, unspecified, uncomplicated (ICD-10) Hypertension ?I10 - Essential (primary) hypertension (ICD-10) Surgical History (Updated 06/04/23 @ 10:51 by Stacy Frank) S/P surgical removal of pilonidal cyst ?Z98.890 - Other specified postprocedural states (ICD-10) H/O lumbosacral spine surgery ?Z98.890 - Other specified postprocedural states (ICD-10) Meds Home Medications and Allergies Home Medications ?Medication ?Instructions ?Recorded ?Confirmed ?Type amitriptyline 10 mg tablet 25 mg PO DAILY 11/23/22 06/14/23 History atorvastatin 20 mg tablet 20 mg PO DAILY 11/23/22 06/14/23 History ferrous sulfate 325 mg (65 mg 325 mg PO DAILY 11/23/22 06/14/23 History iron) tablet (FeroSul) fluticasone fur. 100 mcg-umeclid 1 inh inhalation DAILY 11/23/22 06/14/23 History 62.5 mcg-vilant 25 mcg inhalat.powder (Trelegy Ellipta) lisinopril 2.5 mg tablet 2.5 mg PO DAILY 11/23/22 06/14/23 History metformin 500 mg tablet 500 mg PO BID 11/23/22 06/14/23 History tizanidine 4 mg capsule 4 mg PO DAILY PRN muscle spasticity 11/23/22 06/14/23 History meloxicam 15 mg tablet 15 mg PO DAILY 04/15/23 06/14/23 History naloxone 4 mg/actuation nasal 4 mg intranasal Q3M PRN opioid 05/19/23 06/14/23 Rx spray (Narcan) overdose #2 ea tramadol 50 mg tablet 50 mg PO BID PRN pain #60 tabs 05/19/23 06/14/23 Rx Allergies Allergy/AdvReac Type Severity Reaction Status Date / Time No Known Drug Allergies Allergy Verified 11/23/22 14:05 Exam Constitutional Documenting provider has reviewed patient's vital signs: yes Common normals: no apparent distress, oriented x3, healthy appearing, alert and well nourished General appearance: cooperative HENMT Common normals: normocephalic, hearing grossly normal bilaterally and moist oral mucous membranes Head and scalp: normocephalic Eye Common normals: PERRL Pupil: PERRL Neck & C-Spine Common normals: full ROM General: normal visual inspection Chest Common normals: inspection of chest normal Respiratory Common normals: normal respiratory effort, no retractions and no use of accessory muscles Back & Pelvis Lumbar spine/lower back: ROM limited, pain with ROM and straight leg raise negative bilaterally Sacroiliac joints: SI joint(s) abnormal Other: facet loading bilateral intermittent NC right SIJ pain over PSIS, positive DECLAN, FADIR, thigh thrust, gaenslens Extremity Common normals: normal to inspection and full ROM Neuro Common normals: oriented x3, CN's II-XII intact bilaterally, moves all extremities, no focal motor deficits, no sensory deficits noted and deep tendon reflexes 2+ bilaterally Sensorium/orientation: alert Gait (neuro): antalgic and assistive device used cane Motor exam: strength 5/5 throughout and no movement abnormalities noted Psych Common normals: mental status grossly normal, thought process normal, cooperative, affect normal, speech normal and activity/motor behavior normal Speech: normal speech Thought process: normal thought process Results Additional Findings Additional findings: If on a controlled substance or opioids, I have checked an [place]AR[place] report on this patient and there are no aberrancies noted in the prescribing history.??If on a controlled substance or opioid a drug screen was completed and reviewed within the last year, and if there has not been a drug screen completed we ordered one today to monitor higher risk, state monitored pain medication use. As part of providing excellent, safe, comprehensive care, the following was completed at our patient's visit: 1. A medication reconciliation and review to ensure accurate knowledge of current/active medications, including asking our patients to inform us about any [id number] medications or herbal remedies/nutritional supplements/alternative remedies. 2. A review to specifically ensure our patients have had annual screening for screening for depression, screening for tobacco use, and screening for unhealthy alcohol use. For concerning screenings had a discussion with the patient, provided patient education, and recommended follow-up with primary care provider when appropriate. If patient noted with a risk of falling, they received education on strength, gait, and balance training to prevent future risk of falling. Assessment and Plan Assessment and Plan (1) Lumbar spondylosis: Assessment and Plan: The patient has had over 3 months of moderate to severe low back and right SIJ pain with functional impairment and inadequate response to conservative care including NSAIDS (unless there are contraindication such as concurrent blood thinners), multiple oral or topical pain medications, and home exercise program/physical therapy.? Patient has completed >6 weeks of guided home exercise program and/or formal physical therapy program without relief of their symptoms.? I have reviewed the imaging of the lumbar spine and no red flags were identified.? We discussed the risks and benefits of the procedure with the patient, and we are NOT planning on using sedation as outlined in the guidelines from Medicare unless there is a documented reason that sedation would be strongly recommended.?? ?The procedure will be completed with fluoroscopic guidance.? (2) Sacroiliitis: (3) Chronic prescription opiate use: Assessment and Plan: I feel these medications are improving the patient's quality of life and allow them to tolerate activities of daily living as well as participate in recreational activity.? The patient does not report intolerable side effects. The patient is NOT opioid naive and non-pharmacologic and non-opioid treatment has failed to significantly relieve the patient's pain and improve functionality. The patient has a diagnosis that is related to a somatic or visceral pain etiology. ? ?? I reviewed with the patient the potential risks and side effects with the use of? opioid medications including but not limited to respiratory depression,? sedation, and even . I verified the patient has access to naloxone should? these effects occur. I advised the patient to avoid the use of any other? sedation substances including alcohol, THC, and benzodiazepines while? taking opioid medications due to the risk of compounding side effects and? detrimental outcomes. I reviewed the [employer], pain treatment agreement, urine? drug screen, and opioid start talking forms. The patient was advised to let? their family know they had Naloxone in case they would need to administer? the medication.? ?? A drug screen was completed within the last year, and no aberrancies were noted regarding their use of controlled substances. The patient understands they are subject to the terms and conditions of the pain contract that they have signed. ? ?? I have checked an OARRS report on this patient today and there are no aberrancies noted in the prescribing history.? (4) Muscle spasm: (5) Lumbar stenosis with neurogenic claudication: (6) Failed back syndrome: Plan bilateral L5-S1 facet medial branch block x2 under fluoroscopy working towards RFA continue PT and HEP as tolerated continue current medication regimen, tolerating well without side effects reporting mild functional improvement declining surgical intervention consider spinal cord stimulator in the future f/u 1 week after each injection
== END 2023-06-23 12:52 | disposition home or self-care (01) ==
LOC: PM 12:51
PROVIDERS: PCP Nurse Practitioner; Visit Provider Nurse Practitioner
DX: M47.816 Spondylosis without myelopathy or radiculopathy, lumbar region (principal); M46.1 Sacroiliitis, not elsewhere classified; Z79.891 Long term (current) use of opiate analgesic; M62.838 Other muscle spasm; M48.062 Spinal stenosis, lumbar region with neurogenic claudication
CPT/HCPCS: G0463

== ENCOUNTER 2023-07-05 07:59 | Day surgery (SDC) | payer OTHER, SELFPAY ==
--- OUTSIDE RECORDS SUMMARY | 2023-07-05 08:22 | XMS_ITS | CCD ---
Author Organization [facility] Care Team Providers Care Levers Lace Machine Operator Name Role Phone ALBA MOHAMAD Attending Unavailable AICHHOLZ, LABEL OPERATOR GAYLA Primary Care Unavailable ALGHOTHANI, MOHAMAD Consulting Unavailable ALGHOTHANI, MOHAMAD Admitting Unavailable AICHHOLZ, LABEL OPERATOR GAYLA Primary Care Unavailable AICHHOLZ, LABEL OPERATOR GAYLA Admitting Unavailable AICHHOLZ, LABEL OPERATOR GAYLA Attending Unavailable AICHHOLZ, LABEL OPERATOR GAYLA Consulting Unavailable ALGHOTHANI, MOHAMAD Attending Unavailable AICHHOLZ, LABEL OPERATOR GAYLA Primary Care Unavailable ALGHOTHANI, MOHAMAD Consulting Unavailable ALGHOTHANI, MOHAMAD Admitting Unavailable ALGHOTHANI, MOHAMAD Attending Unavailable AICHHOLZ, LABEL OPERATOR GAYLA Primary Care Unavailable ALGHOTHANI, MOHAMAD Consulting Unavailable ALGHOTHANI, MOHAMAD Admitting Unavailable ALEX, INA Attending Unavailable ALEX, INA Admitting Unavailable ALEX, INA Consulting Unavailable AICHHOLZ, LABEL OPERATOR GAYLA Primary Care Unavailable AICHHOLZ, LABEL OPERATOR GAYLA Admitting Unavailable AICHHOLZ, LABEL OPERATOR GAYLA Attending Unavailable AICHHOLZ, LABEL OPERATOR GAYLA Consulting Unavailable AICHHOLZ, LABEL OPERATOR GAYLA Primary Care Unavailable AICHHOLZ, LABEL OPERATOR GAYLA Admitting Unavailable AICHHOLZ, LABEL OPERATOR GAYLA Attending Unavailable AICHHOLZ, LABEL OPERATOR GAYLA Consulting Unavailable AICHHOLZ, LABEL OPERATOR GAYLA Primary Care Unavailable ALEX, INA Attending Unavailable ALEX, INA Attending Unavailable DANTE HAND Attending Unavailable Aichholz SYRUP SHED SUPERVISOR, Gayla Unavailable Jim Deleon MD Primary Care Provider [phone] LORNE MARTINEZA Attending Unavailable AICHHOLZ, GAYLA Attending Unavailable King MICHELLE, Dasha Pedro Attending Unavailab rose Snider III, [...] Unavailable, Physician Primary Care Unavailab le Edilson PAMelindaC, Dasha Pedro Attending Unavailab rose Snider III, MD, Delfino Freeman Attending U amadoable Tylor KAMARA MD, Delfino Freeman Attending U amadoable Tylor KAMARA MD, Delfino Freeman Attending U marthaailable Isabela BOWIE, Lara Amos Attending Unavailable Isabela BOWIE, Lara Amos Attending Unavailable Isabela BOWIE, Lara Amos Attending Unavailable Edilson PA-C, Dasha Pedro Attending Unavailab le Allergies Allergy Classification Reported Allergen(s) Allergy Type Date of Onset Reaction(s) Facility (3 sources) pregabalin; Translations: [PREGABALIN] Drug Allergy 3 [facility] Repository (1 source) No Known Medication Allergies; Translations: [No Known Medication Allergies] Propensity to adverse reactions to drug (disorder) [facility] Repository Medications Current Medications Medication Drug [...] oral solution (2 sources) alpha-Adrenergic Agonist, Uncompetitive B-qdvqyg-M-aspartat e Receptor Antagonist, Sigma-1 Agonist Start: 04-07-2023 [...] undergone an L5-S1 transforaminal SVITLANA 05/10/2023 by [facility] pain management which did give her approximately 2 to 3 weeks of incomplete benefit. She is planned for bilateral sacroiliac joint injections in the near future. The patient has discontinued her LSO brace that continues her electromagnetic stimulator 8 hours/day. Recent imaging (provider interpretation): Lumbar flexion/extension x-rays 04/30/2023 at [facility] reveals straightening of lumbar lordosis. Evidence of L3-5 posterior spinal fusion with instrumentation and interbody fusion L4-5. No evidence of hardware fracture or pullout. Patient found to have degenerative disc disease L2-3 and L5-S1. There is slight retrolisthesis L2-3 as well as unchanged anterior listhesis at her surgerized L4-5 segment. No evidence of dynamic instability. CT lumbar spine 02/03/2023 at [facility] reveals evidence of L3-5 posterior spinal [...] imaging. CT lumbar spine 10/14/2022 at [facility] reveals evidence of L3-5 decompression and [...] which c (more content not included)... Normal [facility] INFLUENZA A AND B AGon 0 04-08-2023 INFLUENZA VIRUS A ANTIGEN Positive Abnormal [facility] Comment on above: NOTE: Live attenuate d influenza vaccine viruses can cause a positive result for a rapid influenza diagnostic test if administered up to 7 days prior to rapid testing. INFLUENZA VIRUS B ANTIGEN Negative [facility] Comment on above: Negative for Flu B p rotein antigen. Infection due to Flu B cannot be ruled out. Flu B antigen in the sample may be below the detection limit of the test. Interpretation and review of laboratory results Abnormal [facility] 36on 03-19-2023 36 Please let her know her labs showed normal kidney function. Can continue lisinopril. Thank you Normal [facility] Telephoneon 03-19-2023 Telephone [id number] James López 1960 F Date Provider Department [facility] Family History Problem Relation Age of Onset Other Mother Heart attack Father Other Father Other Father Other Maternal Grandmother Family Status - Relation Status Age at Mother Father Maternal Grandmother Normal [facility] Neurosurgery Office/Clinic N oteon 02-08-2023 Neurosurgery Office/Clinic [...] tizanidine as provided by pain management ([facility] pain management) only as needed and has not yet returned to NSAID medication. She continues to utilize nicotine and understands the deleterious effects of nicotine on her overall health and bony arthrodesis. Recent imaging (provider interpretation): CT lumbar spine 02/03/2023 at [facility] reveals evidence of L3-5 posterior spinal [...] imaging. CT lumbar spine 10/14/2022 at [facility] reveals evidence of L3-5 decompression and [...] bladder inc (more content not included)... Normal [facility] Office Visiton 01-19-2023 Follow-up visit [id number] James López 1960 F Date Provider Department Center 01/19/2023 DANTE BAIG CARD Carlos Alberto Ramsay Family History Problem Relation Age of Onset Other Mother Heart attack Father Other Father Other Father Other Maternal Grandmother Family Status - Relation Status Age at Mother Father Maternal Grandmother Level of Service:14021 ND OFFICE/OUTPATIENT ESTABLISHED LOW MDM 20-29 MIN Reason for Visit and Comments: Follow-up [341843] Hypertension [530756] Normal [facility] Neurosurgery Office/Clinic N zain 12-22-2022 Neurosurgery Office/Clinic [...] times per week. She follows with [facility] pain management which is a transition from [facility] pain management group. She continues to smoke [...] imaging. CT lumbar spine 10/14/2022 at [facility] reveals evidence of L3-5 decompression and [...] demonstrates normal respiratory effort She presents in [facility] cinch lock brace with proper fit and alignment. This was removed at the time of today's visit for incision evaluation. Lumbosacral incision appears well-healed and without erythema, edema, drainage or warmth. She notes mild tenderness (more content not included)... Normal [facility] Neurosurgery Office/Clinic N zain 11-26-2022 Neurosurgery [...] she recently transferred pain management care from [facility] to [facility]. Per the patient, they eventually would like her to initiate hot water physical therapy though only after receiving clearance from this office. Recent imaging (provider interpretation): CT lumbar spine 10/14/2022 at [facility] reveals evidence of L3-5 decompression and [...] demonstrates normal respiratory effort [facility] and alignment. [...] lower extre (more content not included)... Normal [facility] Neurosurgery Office/Clinic N zain 10-15-2022 Neurosurgery [...] interpretation): CT lumbar spine 10/14/2022 at [facility] reveals evidence of L3-5 decompression and [...] Lumbar w/o (more content not included)... Normal [facility] Provider Letteron 10-15-2022 Provider Letter [facility] [address], [id number] Date: 10/15/2022 17:05:57 To Whom It May Concern: This is to verify that Rene Stephan Ceballos was under our care on 10/15/2022 16:00:00. Stated patient underwent an L3-5 posterior spinal fusion on 08/21/22 with instrumentation utilizing Medtronic osteogrip titanium screws. If you have any questions or concerns please call our office at [phone]. Thank you, Dasha Waggoner PA-C Normal [facility] Neurosurgery Office/Clinic N oteon 09-16-2022 Neurosurgery [...] postoperative Lovenox dosing as recommended by her respite care provider for strong family history of blood clots. [...] are appropriate. She presents in [facility] brace which was removed at the [...] No redness (more content not included)... Normal [facility] Inpatient Clinical Summaryon 08-24-2022 Inpatient Clinical Summary [facility] [address] [place] [address] [address] Clinical Summary Person Information Name: Stephan López Age: 62 Years : 1960 Sex: Female PCP: Marital Status: Phone: PCP: Race: White Ethnicity: Not or Language: Danish Visit Id: Visit Reason: Speciality: Acuity: Enc Type: Inpatient Med Service: Surgery Arrival: 08/21/2022 06:28:12 Discharge: Dispo Type: Address: [facility] [id number] Diagnosis: 1:Lumbar stenosis with neurogenic claudication; 2:Spondylolisthesis, [...] range between ( 27.2 and 40.8 ) [place] Auto: 8.9 % -- Normal range between [...] range between ( 36.0 and 46.0 ) [place] Absolute: 1.8 x10 MCH: 31.8 pg -- [...] [facility] New Medications [id number], [address], [place] [id number], [phone] ascorbic acid (ascorbic acid 500 mg oral [...] magnesium hydroxi (more content not included)... Normal [facility] Neurosurgery Progress Noteon 08-24-2022 Neurosurgery Progress [...] Date: 08/27/22 7:59:00 EDT, Dispense From Location: [facility]-FTX-2L, Prophylaxis- Pre/Post-Op, 08/24/22 7:40:00 EDT scopolamine, 1 patches, TD, Film-ER, q72hr, First Dose: 08/24/22 7:40:00 EDT, Dispense From Location: [facility], 08/24/22 7:40:00 EDT traMADol, 100 mg, Oral, Tab, q4hr, PRN severe pain [7-10 on pain scale], First Dose: 08/23/22 9:04:00 EDT, Dispense From Location: [facility]inek-RVJ-4U, 08/23/22 9:04:00 EDT traMADol, 50 mg, Oral, Tab, q4hr, PRN moderate pain [4-6 on pain scale], First Dose: 08/23/22 9:04:00 EDT, Dispense From Location: Fvtxpzb-KWF-9O, 08/23/22 9:04:00 EDT Surgical Drains Subjective: Patient [...] MD, Delfino Freeman 08/24/22 07:45 EDT Normal [facility] Neurosurgery Progress Noteon 08-23-2022 Neurosurgery Progress [...] Dose: 08/23/22 9:04:00 EDT, Dispense From Location: Sdykjnv-SMR-9O, 08/23/22 9:04:00 EDT traMADol, 50 mg, Oral, Tab, q4hr, PRN moderate pain [4-6 on pain scale], First Dose: 08/23/22 9:04:00 EDT, Dispense From Location: Nqqvliu-SMO-2V, 08/23/22 9:04:00 EDT Surgical Drains Subjective: Patient [...] Snider III, MD 08/23/22 09:14 EDT Normal [facility] POC Glucose Randomon 023 Glucose [Mass/Vol] 114 mg/dL High 70-99 [facility] Comment on above: Performed By: #### C [id number] ####[address] [address] Glucose [Mass/Vol] 114 mg/dL High 70-99 [facility] Comment on above: Performed By: #### C OMP #### [facility] [address] [place] [address] .eGFRon 08-22-2022 GFR/1.73 sq M.predicted MDRD (S/P/Bld) [Vol rate/Area] mL/min/{1.73_m2} Normal >=60 [facility] Comment on above: Result Comment: [facility] Laboratories have implemented the eGFR calculation [...] = years Performed By: #### E GFR ####[facility] [place] [address] Basic Metabolic Profileon Anion gap [Moles/Vol] 12 mmol/L Normal 7-17 [facility] Comment on above: Performed By: #### C OMP #### [facility] [address] [place] [address] Calcium [Mass/Vol] 8.5 mg/dL Normal 8.5-10.3 [facility] Comment on above: Performed By: #### C OMP #### [facility] [address] [place] [address] Chloride [Moles/Vol] 101 mmol/L Normal 98-110 [facility] Comment on above: Performed By: #### C OMP #### [address] [address] CO2 [Moles/Vol] 25 mmol/L Normal 22-32 [facility] Comment on above: Performed By: #### C OMP #### [address] [address] Creatinine [Mass/Vol] 0.76 mg/dL Normal 0.44-1.03 [facility] Comment on above: Performed By: #### C OMP #### [address] [address] Glucose [Mass/Vol] 116 mg/dL High 70-99 [facility] Comment on above: Performed By: #### C OMP #### [address] [address] Potassium [Moles/Vol] 4.2 mmol/L Normal 3.4-4.8 [facility] Comment on above: Performed By: #### C OMP #### [address] [address] Sodium [Moles/Vol] 134 mmol/L Normal 133-142 [facility] Comment on above: Performed By: #### C OMP #### [address] [address] Urea nitrogen [Mass/Vol] 10 mg/dL Normal 8-26 [facility] Comment on above: Performed By: #### C OMP #### [address] [address] Urea nitrogen/Creatinine [Mass ratio] 13.2 mg/mg Normal 10.0-20.0 [facility] Comment on above: Performed By: #### C OMP #### [address] [address] CBC w/ Diffon 08-22-2022 Erythrocyte distribution width (RBC) [Ratio] 13.5 % Normal 11.6-14.8 [facility] Comment on above: Performed By: #### C BC ####[address] [address] Hematocrit (Bld) [Volume fraction] 36.3 % Normal 36.0-46.0 [facility] Comment on above: Performed By: #### C BC ####[address] [address] Hemoglobin (Bld) [Mass/Vol] 12.2 g/dL Normal 12.0-16.0 [facility] Comment on above: Performed By: #### C BC ####[address] [address] MCH (RBC) [Entitic mass] 31.8 pg Normal 27.0-35.0 [facility] Comment on above: Performed By: #### C BC ####[address] [address] MCHC 33.5 % Normal 31.0-37.0 [facility] Comment on above: Performed By: #### C BC ####[address] [address] MCV (RBC) [Entitic vol] 94.9 fL Normal 80.0-100.0 [facility] Comment on above: Performed By: #### C BC ####[address] [address] Platelet 282 x10*3/mcL Normal 150-450 [facility] Comment on above: Performed By: #### C BC ####[address] [address] Platelet mean volume (Bld) [Entitic vol] 9.0 fL Normal 6.7-10.6 [facility] Comment on above: Performed By: #### C BC ####[address] [address] RBC 3.82 x10*6/mcL Normal 3.80-5.20 [facility] Comment on above: Performed By: #### C BC ####[address] [address] WBC 20.4 x10*3/mcL High 4.5-11.0 [facility] Comment on above: Performed By: #### C BC ####[address] [address] Diff Autoon 08-22-2022 Baso Absolute 0.1 x10*3/mcL Normal 0.0-0.2 [facility] Comment on above: Performed By: #### C OMP #### [address] [address] Basophils/100 WBC (Bld) 0.4 % Normal 0.0-1.5 [facility] Comment on above: Performed By: #### C OMP #### [address] [address] Eos Absolute 0.0 x10*3/mcL Normal 0.0-0.4 [facility] Comment on above: Performed By: #### C OMP #### [address] [address] Eosinophils/100 WBC (Bld) 0.1 % Normal 0.0-5.4 [facility] Comment on above: Performed By: #### C OMP #### [address] [address] Lymph Absolute 2.4 x10*3/mcL Normal 1.0-4.8 [facility] Comment on above: Performed By: #### C OMP #### [address] [address] Lymphocytes/100 WBC (Bld) 11.6 % Low 27.2-40.8 [facility] Comment on above: Performed By: #### C OMP #### [address] [address] [place] Absolute 1.8 x10*3/mcL High 0.1-1.1 [facility] Comment on above: Performed By: #### C OMP #### [address] [address] Monocytes/100 WBC (Bld) 8.9 % Normal 3.7-11.9 [facility] Comment on above: Performed By: #### C OMP #### [facility] [address] [place] [address] Neutro Absolute 16.1 x10*3/mcL High 1.8-7.7 [facility] Comment on above: Performed By: #### C OMP #### [facility] [address] [place] [address] Neutro Auto 79.0 % High 47.2-70.8 [facility] Comment on above: Performed By: #### C OMP #### [facility] [address] [place] [address] Neurosurgery Progress Noteon 08-22-2022 Neurosurgery Progress Note [...] mg, Oral, qAM baclofen, 5 mg, Oral, n1cf-Bguhnaun Times bisacodyl, 10 mg= 1 supp, Rectal, [...] Dose: 08/21/22 17:00:00 EDT, Dispense From Location: [address], 08/21/22 16:37:00 EDT baclofen, 5 mg, Oral, Tab, c4vi-[id number] Times, First Dose: 08/21/22 22:00:00 EDT, Dispense From Location: [address], 08/21/22 16:37:00 EDT bisacodyl, 10 mg, Rectal, Supp, Once, First Dose: 08/22/22 6:59:00 EDT, Stop Date: 08/22/22 6:59:00 EDT, Dispense From Location: [address], 08/22/22 6:59:00 EDT bisacodyl, 10 mg, Rectal, Supp, Daily, PRN constipation, First Dose: 08/22/22 9:00:00 EDT, Dispense From Location: [address], 08/22/22 9:00:00 EDT ceFAZolin, 2 g, IV Piggyback, Soln-IV, q8hr, infuse over 30 minutes, First Dose: 08/21/22 20:00:00 EDT, Dispense From Location: [address], Prophylaxis- Pre/Post-Op, 08/21/22 20:00:00 EDT docusate, 100 mg, Oral, Cap, BID, First Dose: 08/21/22 21:00:00 EDT, Dispense From Location: [address], 08/21/22 16:37:00 EDT ferrous sulfate, 325 mg, Oral, Tab, BID, First Dose: 08/21/22 21:00:00 EDT, Dispense From Location: [address], 08/21/22 16:37:00 EDT hydrALAZINE, 10 mg, IV Push, Injection, q10min, PRN hypertension, First Dose: 08/21/22 16:37:00 EDT, Dispense From Location: [address], 08/21/22 16:37:00 EDT labetalol, 10 mg, IV Push, Injection, q10min, PRN hypertension, First Dose: 08/21/22 16:37:00 EDT, Dispense From Location: [address], 08/21/22 16:37:00 EDT magnesium hydroxide, 30 mL, Oral, Susp, TID, First Dose: 08/21/22 22:00:00 EDT, Dispense From Location: [address], 08/21/22 16:37:00 EDT multivitamin with minerals, 1 tabs, Oral, Tab, Daily, First Dose: 08/22/22 9:00:00 EDT, Dispense From Location: [address], 08/21/22 16:37:00 EDT ondansetron, 4 mg, IV Push, Injection, q6hr, PRN nausea/vomiting, First Dose: 08/21/22 15:08:00 EDT, Dispense From Location: [facility], 08/21/22 15:08:00 EDT oxyCODONE-acetaminophe n, 1 tabs, Oral, Tab, q4hr, PRN moderate pain [4-6 on pain scale], First Dose: 08/21/22 16:37:00 EDT, Dispense From Location: [address], 08/21/22 16:37:00 EDT oxyCODONE-acetaminophe n, 2 tabs, Oral, Tab, q4hr, PRN severe pain [7-10 on pain scale], First Dose: 08/21/22 16:37:00 EDT, Dispense From Location: [address], 08/21/22 16:37:00 EDT sodium chloride, 10 mL, IV Push, Injection, As Indicated, PRN flush, First Dose: 08/21/22 16:37:00 EDT, Dispense From Location: [address], 08/21/22 16:37:00 EDT ADA Diet Ambulate Basic Metabolic Profile Blood Glucose Monitoring POC Cinch Loc Brace (EXOS Brace) Consult to Labeling Specialist Incentive Spirometry Nursing to Encourage Intake and Output Mechanical Compression Device Neurological Checks Notify Provider Occupational Therapy Evaluation and Treatment Inpatient Oxygen Therapy Peripheral IV Insert and Maintain Physical Therapy Evaluation and Treatment Inpatient Pulse Oximetry Continuous Pulse Oximetry Continuous Resuscitation Status Straight Catheter Straight (more content not included)... Normal [facility] POC Glucose Randomon 023 Glucose [Mass/Vol] 124 mg/dL High 70-99 [facility] Comment on above: Performed By: #### C OMP #### [facility] [address] [place] [address] Glucose [Mass/Vol] 120 mg/dL High 70-99 [facility] Comment on above: Performed By: #### C [id number] ####[facility] [place] [address] Neurosurgery Progress Noteon 08-21-2022 Neurosurgery Progress Note [...] ceFAZolin, 2 g= 50 mL, IV Piggyback, Handcrew Foreman Dilaudid, 0.5 mg= 0.5 mL, IV Push, q15min, PRN diphenhydrAMINE, 25 mg= 0.5 mL, IV Push, q6hr, PRN fentaNYL, 50 mcg= 1 mL, IV Push, q5min, PRN fentaNYL BIOLOGY FACULTY MEMBER, 300 mcg= 30 mL, IV BIOLOGY FACULTY MEMBER, [id number] Times, PRN lisinopril, 2.5 mg, Oral, Daily [...] Dose: 08/21/22 9:00:00 EDT, Dispense From Location: [facility], 08/21/22 6:35:00 EDT ceFAZolin, 2 g, IV Piggyback, Soln-IV, Handcrew Foreman, infuse over 30 minutes, First Dose: 08/21/22 0:15:00 EDT, Dispense From Location: [id number], Prophylaxis- Pre/Post-Op, 08/21/22 0:15:00 EDT diphenhydrAMINE, 25 mg, IV Push, Injection, q6hr, PRN itching, First Dose: 08/21/22 15:08:00 EDT, Dispense From Location: [facility], 08/21/22 15:08:00 EDT fentaNYL, 300 30 mcg mL, IV BIOLOGY FACULTY MEMBER, Loading Dose (mcg): 25, BIOLOGY FACULTY MEMBER Dose (mcg): 10, Lockout Interval (min): 8, Continuous Dose (mcg/hr): 25, 4-Hour Limit (mcg): 300, 2.5 mL/hr, pain PRN, Start Date: 08/21/22 15:08:00 EDT, Dispense From Location: [facility], 07/25... lisinopril, 2.5 mg, Oral, Tab, Daily, First Dose: 08/21/22 9:00:00 EDT, Dispense From Location: [facility], 08/21/22 6:35:00 EDT metFORMIN, 500 mg, Oral, Tab, BID, First Dose: 08/21/22 9:00:00 EDT, Dispense From Location: [facility], 08/21/22 6:35:00 EDT nalbuphine, 2.5 mg, IV Push, Injection, q6hr, PRN refractory itching, First Dose: 08/21/22 15:08:00 EDT, Dispense From Location: [facility], 08/21/22 15:08:00 EDT omeprazole, 40 mg, Oral, Cap-DR, Daily, First Dose: 08/21/22 7:00:00 EDT, Dispense From Location: [facility], 08/21/22 6:35:00 EDT ondansetron, 4 mg, IV Push, Injection, q6hr, PRN nausea/vomiting, First Dose: 08/21/22 15:08:00 EDT, Dispense From Location: [facility], 08/21/22 15:08:00 EDT pregabalin, 100 mg, Oral, Cap, BID, First Dose: 08/21/22 9:00:00 EDT, [facility], 08/21/22 6:35:00 EDT Admit to [...] am Electronically signed by Tylor KAMARA MD, Dlefino Freeman 08/21/22 15:45 EDT Normal [facility] Operative Reporton 3 Operative Report Indication [...] cyst left L4-5; computer-assisted hardware placement using [employer] station and [employer] O-arm Surgeon(s) Tylor KAMARA MD, Delfino Freeman (Surgeon - Primary) Stallion Manager Dasha Waggoner PA-C (Visual Communications Instructor) Anesthesia General Opal BOWIE, Maulik Padron (Innersole Maker) Koko Eugene (Provider) Estimated Blood Loss 300.0 [...] Patient is carefully turned onto [facility] operating room table and head and [...] spinous pro (more content not included)... Normal [facility] POC Glucose Randomon 023 Glucose [Mass/Vol] 152 mg/dL High 70-99 [facility] Comment on above: Performed By: #### C OMP #### [facility] [address] [place] [address] Glucose [Mass/Vol] 206 mg/dL High 70-99 [facility] Comment on above: Performed By: #### C [id number] ####[facility] [place] [address] Glucose [Mass/Vol] 179 mg/dL High 70-99 [facility] Comment on above: Performed By: #### C [id number] ####[facility] [place] [address] XR Spine Lumbosacral 4 Views + in [...] Electronically Signed in Other Vendor System) Normal [facility] Provider Letteron 08-11-2022 Provider Letter Gayla Martinez CNP [address] [place] [phone] Re: Stephan López Date of Visit: 08/10/2022 Dear Gayla Martinez CNP, Let me know if you have any questions or concerns. Sincerely, Lin Cintron Providers: [CC Letter Providers Please see attached lab results The following document(s) were included in the letter: August 10, 2022 13:56:47 EDT - (08/10/2022) Reminder Message Normal [facility] .UA Microscp Aon 08-10-2022 UA Hyline Cast Qual 3-5 Normal Negative [facility] Comment on above: Performed By: #### C OMP #### [place] [address] UA Mucus Present Abnormal Absent [facility] Comment on above: Performed By: #### C OMP #### MELANIE [place] [id number] UA RBC Quant 0 /HPF Normal 0-5 [facility] Comment on above: Performed By: #### C OMP #### [place] [address] UA Squepi Cells Quant 2 /HPF Normal 0-29 [facility] Comment on above: Performed By: #### C OMP #### [place] [address] UA WBC Quant 0 /HPF Normal 0-5 [facility] Comment on above: Performed By: #### C OMP #### [place] [address] .eGFRon 08-10-2022 GFR/1.73 sq M.predicted MDRD (S/P/Bld) [Vol rate/Area] mL/min/{1.73_m2} Normal >=60 [facility] Comment on above: Result Comment: [facility] have implemented the eGFR calculation [...] = years Performed By: #### E GFR ####[place] [address] ABO/Rhon 08-10-2022 ABO/Rh ABO/Rh: O NEG Normal [facility] Comment on above: Performed By: #### A BORH ####[place] [address] ABSC Autoon 08-10-2022 ABSC Auto Negative Normal [facility] Comment on above: Performed By: #### A SA ####[place] [address] CBC w/ Diffon 08-10-2022 Erythrocyte distribution width (RBC) [Ratio] 13.3 % Normal 11.6-14.8 [facility] Comment on above: Performed By: #### C BC ####[place] [id number] Hematocrit (Bld) [Volume fraction] 44.0 % Normal 36.0-46.0 [facility] Comment on above: Performed By: #### C BC ####[place] [id number] Hemoglobin (Bld) [Mass/Vol] 15.0 g/dL Normal 12.0-16.0 [facility] Comment on above: Performed By: #### C BC ####[address] [address] MCH (RBC) [Entitic mass] 32.6 pg Normal 27.0-35.0 [facility] Comment on above: Performed By: #### C BC ####[address] [address] MCHC 34.0 % Normal 31.0-37.0 [facility] Comment on above: Performed By: #### C BC ####[place] [id number] MCV (RBC) [Entitic vol] 95.8 fL Normal 80.0-100.0 [facility] Comment on above: Performed By: #### C BC ####[address] [address] Platelet 298 x10*3/mcL Normal 150-350 [facility] Comment on above: Performed By: #### C BC ####[address] [address] Platelet mean volume (Bld) [Entitic vol] 10.1 fL Normal 6.7-10.6 [facility] Comment on above: Performed By: #### C BC ####[address] [address] RBC 4.59 x10*6/mcL Normal 3.80-5.20 [facility] Comment on above: Performed By: #### C BC ####[address] [address] WBC 12.9 x10*3/mcL High 4.5-11.0 [facility] Comment on above: Performed By: #### C BC ####[address] [address] CMPon 08-10-2022 Albumin [Mass/Vol] 4.4 g/dL Normal 3.2-4.9 [facility] Comment on above: Performed By: #### C OMP #### [address] [place] [address] Albumin/Globulin [Mass ratio] 1.4 {ratio} Normal 1.1-2.2 [facility] Comment on above: Performed By: #### C OMP #### [address] [address] Alk Phos 75 IU/L Normal 32-91 [facility] Comment on above: Performed By: #### C OMP #### [address] [place] [address] ALT [Catalytic activity/Vol] 14 U/L Normal 14-54 [facility] Comment on above: Performed By: #### C OMP #### [address] [address] Anion gap [Moles/Vol] 13 mmol/L Normal 7-17 [facility] Comment on above: Performed By: #### C OMP #### [address] [address] AST [Catalytic activity/Vol] 20 U/L Normal 15-41 [facility] Comment on above: Performed By: #### C OMP #### [address] [place] [address] Bili Total 0.6 mg/dL Normal 0.3-1.2 [facility] Comment on above: Performed By: #### C OMP #### [address] [place] [address] Calcium [Mass/Vol] 9.3 mg/dL Normal 8.5-10.3 [facility] Comment on above: Performed By: #### C OMP #### [address] [address] Chloride [Moles/Vol] 103 mmol/L Normal 98-110 [facility] Comment on above: Performed By: #### C OMP #### [address] [address] CO2 [Moles/Vol] 24 mmol/L Normal 22-32 [facility] Comment on above: Performed By: #### C OMP #### [address] [address] Creatinine [Mass/Vol] 0.85 mg/dL Normal 0.44-1.03 [facility] Comment on above: Performed By: #### C OMP #### [address] [address] Glucose [Mass/Vol] 108 mg/dL High 70-99 [facility] Comment on above: Performed By: #### C OMP #### [address] [address] Potassium [Moles/Vol] 3.7 mmol/L Normal 3.4-4.8 [facility] Comment on above: Performed By: #### C OMP #### [address] [address] Protein [Mass/Vol] 7.5 g/dL Normal 6.5-8.1 [facility] Comment on above: Performed By: #### C OMP #### [address] [address] Sodium [Moles/Vol] 136 mmol/L Normal 133-142 [facility] Comment on above: Performed By: #### C OMP #### [address] [address] Urea nitrogen [Mass/Vol] 15 mg/dL Normal 8-26 [facility] Comment on above: Performed By: #### C OMP #### [address] [address] Urea nitrogen/Creatinine [Mass ratio] 17.6 mg/mg Normal 10.0-20.0 [facility] Comment on above: Performed By: #### C OMP #### [address] [address] Diff Autoon 08-10-2022 Baso Absolute 0.1 x10*3/mcL Normal 0.0-0.2 [facility] Comment on above: Performed By: #### . Automated Diff #### [address] [address] Basophils/100 WBC (Bld) 0.4 % Normal 0.0-1.5 [facility] Comment on above: Performed By: #### . Automated Diff #### [address] [address] Eos Absolute 0.1 x10*3/mcL Normal 0.0-0.4 [facility] Comment on above: Performed By: #### . Automated Diff #### [address] [address] Eosinophils/100 WBC (Bld) 0.9 % Normal 0.0-5.4 [facility] Comment on above: Performed By: #### . Automated Diff #### [address] [address] Lymph Absolute 3.8 x10*3/mcL Normal 1.0-4.8 [facility] Comment on above: Performed By: #### . Automated Diff #### [address] [address] Lymphocytes/100 WBC (Bld) 29.6 % Normal 27.2-40.8 [facility] Comment on above: Performed By: #### . Automated Diff #### [address] [address] [place] Absolute 0.8 x10*3/mcL Normal 0.1-1.1 [facility] Comment on above: Performed By: #### . Automated Diff #### [address] [address] Monocytes/100 WBC (Bld) 5.9 % Normal 3.7-11.9 [facility] Comment on above: Performed By: #### . Automated Diff #### [address] [address] Neutro Absolute 8.1 x10*3/mcL High 1.8-7.7 [facility] Comment on above: Performed By: #### . Automated Diff #### [place] [address] Neutro Auto 63.2 % Normal 47.2-70.8 [facility] Comment on above: Performed By: #### . Automated Diff #### [place] [id number] HbA1c w/Rflx Fructosamineon 08-10-2022 Glucose [Mass/Vol] 128 mg/dL High 68-114 [facility] Comment on above: Result Comment: Math ematical Calc approx. The mean gluc equivalency of A1c Performed By: #### C OMP #### [place] [id number] Hgb A1c 6.1 % A1c High 4.0-5.6 [facility] Comment on above: Result Comment: Refe rence Range: 4.0 - 5.6 % Normal 5.7 - 6.4 % Pre-Diabetes > 6.5 % Diabetes Performed By: #### C OMP #### [address] [address] PTon 08-10-2022 INR Coag (PPP) [Relative time] 1.0 {INR} Normal <=3.5 [facility] Comment on above: Result Comment: INR has no normal range. INR Therapeutic range is: 2.0-3.0 (AF, CVA, TIAs, DVT prophylaxis, acute DVT) 2.5-3.5 ([facility], recurrent thrombosis/emboli) Performed By: #### C OMP #### [address] [address] PT Coag (PPP) [Time] 10.7 s Normal 9.3-11.9 [facility] Comment on above: Performed By: #### C OMP #### [address] [address] PTTon 08-10-2022 aPTT Coag (Bld) [Time] 20.9 s Normal 20.6-29.2 [facility] Comment on above: Performed By: #### P TT ####[address] [address] Provider Letteron 08-10-2022 Provider Letter Gayla Martinez CNP [address] [place] [address] Re: Stephan López Date of Visit: 08/10/2022 Dear Gayla Martinze CNP, Let me know if you have any questions or concerns. Sincerely, Lin Cintron Providers: [CC Letter Providers Please see attached lab results The following document(s) were included in the letter: August 10, 2022 13:04:48 EDT - (08/10/2022) Reminder Message Normal [facility] Provider Letter Gayla Martinez CNP [address] [place] [address] Re: Stephan López Date of Visit: 08/10/2022 Dear Gayla Martinez CNP, Let me know if you have any questions or concerns. Sincerely, Lin Cintron Providers: [CC Letter Providers Please see attached ECG results The following document(s) were included in the letter: August 10, 2022 13:05:57 EDT - (08/10/2022) Reminder Message Normal [facility] UA w Culture if Indon 2022 Color (U) Yellow Normal [facility] Comment on above: Performed By: #### U CI ####[address] [address] Ketones Ql (U) Negative Normal Negative [facility] Comment on above: Performed By: #### U CI ####[address] [address] UA Blood Negative Normal Negative [facility] Comment on above: Performed By: #### U CI ####[address] [address] UA Clarity Clear Normal [facility] Comment on above: Performed By: #### U CI ####[address] [address] UA Glucose Normal Normal Negative [facility] Comment on above: Performed By: #### U CI ####[address] [address] UA Leukocyte Esterase Negative Normal Negative [facility] Comment on above: Performed By: #### U CI ####[address] [address] UA Nitrite Negative Normal Negative [facility] Comment on above: Performed By: #### U CI ####[place] [address] UA pH 5.0 Normal 4.5 - 7.8 [facility] Comment on above: Performed By: #### U CI ####[place] [id number] UA Protein 10 mg/dL Normal Negative [facility] Comment on above: Performed By: #### U CI ####[place] [address] UA Source Clean Catch Normal [facility] Comment on above: Performed By: #### U CI ####[place] [id number] UA Spec Grav 1.025 Normal 1.003-1.035 [facility] Comment on above: Performed By: #### U CI ####[place] [id number] UA Urobilinogen Normal Normal 0.2 - 1.0 [facility] Comment on above: Performed By: #### U CI ####[place] [address] Urobilinogen (U) [Mass/Vol] Negative Normal Negative [facility] Comment on above: Performed By: #### U CI ####[place] [id number] XR Chest 2 Viewson 3 XR Chest [...] Electronically Signed in Other Vendor System) Normal [facility] Neurosurgery Office/Clinic N oteon 07-23-2022 Neurosurgery Office/Clinic Note Chief Complaint Patient is being seen for a back follow up. History of Present Illness The patient is a pleasant 62-year-old right-handed female with history of fck-zttatfm-trhvzgghy diabetes mellitus diagnosed in 2009, chronic nicotine [...] interpretation): MRI cervical spine 05/29/2022 at [facility] reveals multilevel degenerative disc disease, most [...] instability. MRI lumbar spine 04/29/2022 at [facility] reveals multilevel degenerative disc disease. Significant [...] there is (more content not included)... Normal [facility] Neurosurgery Office/Clinic Note Chief Complaint Patient [...] Sibling. I (more content not included)... Normal [facility] Office Visiton 07-03-2022 Follow-up visit [id number] James López 1960 F Date Provider Department Center 07/03/2022 INA JONES Family History Problem Relation Age of Onset Other Mother Heart attack Father Other Father Other Father Other Maternal Grandmother Family Status - Relation Status Age at Mother Father Maternal Grandmother Level of Service:38964 [place] OFFICE/OUTPATIENT ESTABLISHED LOW [facility] 20-29 MIN Reason for Visit and Comments: Hypertension [405083] pericardial effusion [Other] Normal [facility] Neurosurgery Office/Clinic N oteon 06-24-2022 Neurosurgery Office/Clinic Note Chief Complaint Patient is being seen for a back follow up. History of Present Illness The patient is a pleasant 62-year-old right-handed female with history of rqm-feojfep-yxvtwxkxy diabetes mellitus diagnosed in 2009, chronic nicotine [...] interpretation): MRI cervical spine 05/29/2022 at [facility] reveals multilevel degenerative disc disease, most [...] instability. MRI lumbar spine 04/29/2022 at [facility] reveals multilevel degenerative disc disease. Significant [...] measuring appro (more content not included)... Normal [facility] PROF CHEM 8 (BAS METB)on Anion gap [Moles/Vol] 12.9 mmol/L Normal [facility] Comment on above: Performed By: #### C BC #### [facility] [address] [place] [address] Dr. Yariel Herrera Calcium [Mass/Vol] 9.0 mg/dL Normal 8.5-10.1 [facility] Comment on above: Performed By: #### C BC #### [facility] [address] [place] [address] [address] Yariel Herrera Chloride [Moles/Vol] 106 mmol/L Normal 98-107 [facility] Comment on above: Performed By: #### C BC #### [facility] [address] [place] [address] [address] Yariel Herrera CO2 [Moles/Vol] 28.3 mmol/L Normal 21.0-32.0 [facility] Comment on above: Performed By: #### C BC #### [facility] [address] [place] [address] Dr. Yariel Herrera Creatinine [Mass/Vol] 0.81 mg/dL Normal 0.55-1.02 [facility] Comment on above: Performed By: #### C BC #### [facility] [address] [place] [address] Dr. Yariel Herrera EGFR-AF KAZAKH >60 Normal >=60 [facility] Comment on above: Performed By: #### C BC #### [facility] [address] [place] [address] Dr. Yariel Herrera EGFR-NON AF KAZAKH >60 Normal >=60 [facility] Comment on above: Performed By: #### C BC #### [facility] [address] [place] [address] Dr. Yariel Herrera Glucose [Mass/Vol] 103 mg/dL Normal 74-106 [facility] Comment on above: Performed By: #### C BC #### [facility] [address] [place] [address] Dr. Yariel Herrera Potassium [Moles/Vol] 4.2 mmol/L Normal 3.5-5.1 [facility] Comment on above: Performed By: #### C BC #### [facility] [address] [place] [address] Dr. Yariel Herrera Sodium [Moles/Vol] 143 mmol/L Normal 136-145 [facility] Comment on above: Performed By: #### C BC #### [facility] [address] [place] [address] Dr. Yariel Herrera Urea nitrogen [Mass/Vol] 9.0 mg/dL Normal 7.0-18.0 [facility] Comment on above: Performed By: #### C BC #### [facility] [address] [place] [address] Dr. Yariel Herrera Urea nitrogen/Creatinine [Mass ratio] 11.1 mg/mg Normal [facility] Comment on above: Performed By: #### C BC #### [facility] [address] [place] [address] [address] Yariel Herrera 37on 06-10-2022 37 Start lisinopril 2.5 mg daily, Have labs/blood checked in 1 week for kidney function Monitor b/p at home 1-2 times/day and record on a log- bring with her to next visit. If you notice a dry, persistent cough- stop lisinopril and call office please. Normal [facility] Office Visiton 06-10-2022 Follow-up visit [id number] James López 1960 F Date Provider Department Center 06/10/2022 INA JONES [facility] Family History Problem Relation Age of Onset Other Mother Heart attack Father Other Father Other Father Other Maternal Grandmother Family Status - Relation Status Age at Mother Father Maternal Grandmother Level of Service:54581 ND OFFICE/OUTPATIENT ESTABLISHED MOD MDM 30-39 MIN Normal [facility] ECHOCARDIO M/2D COMPLETEon 0 05-08-2022 ECHOCARDIO M/2D COMPLETE Patient: STEPHAN LÓPEZ. Exam Date: 05/08/2022 : 1960 Gender:F Ordering : CARL WILLIS Admission #: [id number] Family : GAURAV MARTINEZ [facility] Order #: [id number] CLICK HERE TO VIEW EXAM ECHOCARDIOGRAM REPORT [...] Garzon M.D. on 05/08/2022 at 14:20 Normal [facility] ABHINAV by IFAon 01-08-2022 Antinuclear Antibodies, IFA Negative Normal [facility] Comment on above: Result Comment: Nega tive <1:80 Borderline 1:80 Positive >1:80 ICAP nomenclature: AC-0 For more information about Hep-2 cell patterns use ANApatterns.org, the official website for the International Consensus on Antinuclear Antibody (ABHINAV) Patterns (ICAP). Performed By: #### A NAIFA #### [facility] [address] [place] [address] Dr. Yariel Herrera CBC AUTO DIFFon 01-05-2022 BASO # 0.1 103/ul Normal 0.0-0.1 [facility] Comment on above: Performed By: #### C BC #### [facility] [address] [place] [address] [address] Yariel Herrera Basophils/100 WBC (Bld) 0.6 % Normal 0.2-2.0 [facility] Comment on above: Performed By: #### C BC #### [facility] [address] [place] [address] Dr. Yariel Herrera EO # 0.2 103/ul Normal 0.0-0.7 [facility] Comment on above: Performed By: #### C BC #### [facility] [address] [place] [address] Dr. Yariel Herrera Eosinophils/100 WBC (Bld) 1.4 % Normal 0.9-7.0 [facility] Comment on above: Performed By: #### C BC #### [facility] [address] [place] [address] Dr. Yariel Herrera Erythrocyte distribution width (RBC) [Ratio] 13.6 % Normal 11.0-15.0 [facility] Comment on above: Performed By: #### C BC #### [facility] [address] [place] [address] Dr. Yariel Herrera Hematocrit (Bld) [Volume fraction] 46.6 % Normal 36.0-48.0 [facility] Comment on above: Performed By: #### C BC #### [facility] [address] [place] [address] Dr. Yariel Herrera Hemoglobin (Bld) [Mass/Vol] 15.4 g/dL Normal 12.0-16.0 [facility] Comment on above: Performed By: #### C BC #### [facility] [address] [place] [address] Dr. Yariel Herrera IG # 0.03 10e3/ul Normal 0.00-0.03 [facility] Comment on above: Performed By: #### C BC #### [facility] [address] [place] [address] Dr. Yariel Herrera IG % 0.2 % Normal 0.0-0.5 [facility] Comment on above: Performed By: #### C BC #### [facility] [address] [place] [address] Dr. Yariel Herrera LYMPH # 4.2 103/ul Critically high 1.2-3.8 [facility] Comment on above: Performed By: #### C BC #### [facility] [address] [place] [address] [address] Yariel Herrera Lymphocytes/100 WBC (Bld) 31.3 % Normal 20.5-60.0 [facility] Comment on above: Performed By: #### C BC #### [facility] [address] [place] [address] [address] Yariel Herrera MANUAL DIFF REQ NO Normal [facility] Comment on above: Performed By: #### C BC #### [facility] [address] [place] [address] Dr. Yariel Herrera MCH (RBC) [Entitic mass] 31.6 pg Normal 26.7-34.0 [facility] Comment on above: Performed By: #### C BC #### [facility] [address] [place] [address] Dr. Yariel Herrera MCHC (RBC) [Mass/Vol] 33.0 g/dL Normal 29.9-35.2 [facility] Comment on above: Performed By: #### C BC #### [facility] [address] [place] [address] Dr. Yariel Herrera MCV (RBC) [Entitic vol] 95.7 fL Normal 81.0-99.0 [facility] Comment on above: Performed By: #### C BC #### [facility] [address] [place] [address] Dr. Yariel Herrera MONO # 0.9 103/ul Critically high 0.3-0.8 [facility] Comment on above: Performed By: #### C BC #### [facility] [address] [place] [address] Dr. Yariel Herrera Monocytes/100 WBC (Bld) 6.8 % Normal 1.7-12.0 [facility] Comment on above: Performed By: #### C BC #### [facility] [address] [place] [address] Dr. Yariel Herrera NEUT # 8.0 103/ul Critically high 1.4-6.5 [facility] Comment on above: Performed By: #### C BC #### [facility] [address] [place] [address] Dr. Yariel Herrera Neutrophils/100 WBC (Bld) 59.7 % Normal 43.0-75.0 [facility] Comment on above: Performed By: #### C BC #### [facility] [address] [place] [address] Dr. Yariel Herrera Platelet mean volume (Bld) [Entitic vol] 10.7 fL Normal 9.5-13.5 [facility] Comment on above: Performed By: #### C BC #### [facility] [address] [place] [address] Dr. Yariel Herrera PLT 340 103/ul Normal 150-450 [facility] Comment on above: Performed By: #### C BC #### [facility] [address] [place] [address] Dr. Yariel Herrera RBC 4.87 106/ul Normal 4.20-5.40 [facility] Comment on above: Performed By: #### C BC #### [facility] [address] [place] [address] Dr. Yariel Herrera WBC 13.4 103/ul Critically high 4.0-11.0 [facility] Comment on above: Performed By: #### C BC #### [facility] [address] [place] [address] Dr. Yariel Herrera FREE T4on 01-05-2022 Free T4 [Mass/Vol] 1.06 ng/dL Normal 0.76-1.46 [facility] Comment on above: Performed By: #### C BC #### [facility] [address] [place] [address] Dr. Yariel Herrera PROF 14(COMP METB)on 022 Albumin [Mass/Vol] 3.9 g/dL Normal 3.4-5.0 [facility] Comment on above: Performed By: #### C MP, TSH #### [facility] [address] [place] [address] Dr. Yariel Herrera Albumin/Globulin [Mass ratio] 1.1 {ratio} Normal [facility] Comment on above: Performed By: #### C MP, TSH #### [facility] [address] [place] [address] [address] Yariel Herrera ALP [Catalytic activity/Vol] 99 U/L Normal 46-116 [facility] Comment on above: Performed By: #### C MP, TSH #### [facility] [address] [place] [address] [address] Yariel Herrera ALT [Catalytic activity/Vol] 17 U/L Normal 14-59 [facility] Comment on above: Performed By: #### C MP, TSH #### [facility] [address] [place] [address] [address] Yariel Herrera Anion gap [Moles/Vol] 10.1 mmol/L Normal [facility] Comment on above: Performed By: #### C MP, TSH #### [facility] [address] [place] [address] [address] Yariel Herrera AST [Catalytic activity/Vol] 14 U/L Critically low 15-37 [facility] Comment on above: Performed By: #### C MP, TSH #### [facility] [address] [place] [address] [address] Yariel Herrera Bilirubin [Mass/Vol] 0.3 mg/dL Normal 0.2-1.0 [facility] Comment on above: Performed By: #### C MP, TSH #### [facility] [address] [place] [address] [address] Yariel Herrera Calcium [Mass/Vol] 9.4 mg/dL Normal 8.5-10.1 [facility] Comment on above: Performed By: #### C MP, TSH #### [facility] [address] [place] [address] [address] Yariel Herrera Chloride [Moles/Vol] 103 mmol/L Normal 98-107 [facility] Comment on above: Performed By: #### C MP, TSH #### [facility] [address] [address] [address] Yariel Herrera CO2 [Moles/Vol] 30.9 mmol/L Normal 21.0-32.0 [facility] Comment on above: Performed By: #### C MP, TSH #### [facility] [address] [address] [address] Yariel Herrera Creatinine [Mass/Vol] 0.88 mg/dL Normal 0.55-1.02 [facility] Comment on above: Performed By: #### C MP, TSH #### [facility] [address] [place] [address] [address] Yariel Herrera EGFR-AF KAZAKH >60 Normal >=60 [facility] Comment on above: Performed By: #### C MP, TSH #### [facility] [address] [address] [address] Yariel Herrera EGFR-NON AF KAZAKH >60 Normal >=60 [facility] Comment on above: Performed By: #### C MP, TSH #### [facility] [facility] [address] [place] [address] Dr. Yariel Herrera Globulin (S) [Mass/Vol] 3.5 g/dL Normal [facility] Comment on above: Performed By: #### C MP, TSH #### [facility] [address] [place] [address] Dr. Yariel Herrera Glucose [Mass/Vol] 117 mg/dL Critically high 74-106 [facility] Comment on above: Performed By: #### C MP, TSH #### [facility] [address] [place] [address] Dr. Yariel Herrera Potassium [Moles/Vol] 4.0 mmol/L Normal 3.5-5.1 [facility] Comment on above: Performed By: #### C MP, TSH #### [facility] [address] [place] [address] Dr. Yariel Herrera Protein [Mass/Vol] 7.4 g/dL Normal 6.4-8.2 [facility] Comment on above: Performed By: #### C MP, TSH #### [facility] [address] [place] [address] Dr. Yariel Herrera Sodium [Moles/Vol] 140 mmol/L Normal 136-145 [facility] Comment on above: Performed By: #### C MP, TSH #### [facility] [address] [address] [address] Yariel Herrera Urea nitrogen [Mass/Vol] 18.0 mg/dL Normal 7.0-18.0 [facility] Comment on above: Performed By: #### C MP, TSH #### [facility] [address] [address] [address] Yariel Herrera Urea nitrogen/Creatinine [Mass ratio] 20.5 mg/mg Normal [facility] Comment on above: Performed By: #### C MP, TSH #### [facility] [address] [address] [address] Yariel Herrera TSHon 01-05-2022 TSH 1.380 uIU/mL Normal 0.358-3.740 [facility] Comment on above: Performed By: #### C MP, TSH #### [facility] [address] [place] [address] Dr. Yariel Herrera GLYCOHEMOGLOBIN A1Con 2021 ADA RECOMMENDATION SEE BELOW Normal [facility] Comment on above: Result Comment: ADA RECOMMENDED LIMIT 4.0 - 6.0 ADA THERAPEUTIC TARGET < 7.0 ACTION SUGGESTED > 7.0 Performed By: #### A 1C #### [facility] [address] [place] [address] Dr. Yariel Herrera Glucose [Mass/Vol] 137 mg/dL Normal [facility] Comment on above: Performed By: #### A 1C #### [facility] [address] [place] [address] Dr. Yariel Herrera HbA1c (Bld) [Mass fraction] 6.4 % Critically high 4.5-6.2 [facility] Comment on above: Performed By: #### A 1C #### [facility] [address] [place] [address] Dr. Yariel Herrera ECHOCARDIO M/2D COMPLETEon 0 10-16-2021 ECHOCARDIO M/2D COMPLETE Patient: STEPHAN LÓPEZ Exam Date: 10/16/2021 : 1960 Gender:F Ordering : CARL WILLIS Admission #: [id number] Family : Order #: [id number] CLICK HERE TO VIEW EXAM ECHOCARDIOGRAM REPORT [...] Melvin M.D. on 10/16/2021 at 17:12 Normal [facility] ECHOCARDIO M/2D COMPLETEon 0 09-16-2021 ECHOCARDIO M/2D COMPLETE Patient: STEPHAN LÓPEZ Exam Date: 09/16/2021 : 1960 Gender:F Ordering : GAURAV MARTINEZ [facility] Admission #: [id number] Family : Order #: [id number] CLICK HERE TO VIEW EXAM ECHOCARDIOGRAM REPORT [...] on 09/17/2021 at 13:02 Normal [facility] CBC AUTO DIFFon 08-04-2021 BASO # 0.1 103/ul Normal 0.0-0.1 [facility] Comment on above: Performed By: #### C BC #### [facility] [address] [place] [address] Dr. Yariel Herrera Basophils/100 WBC (Bld) 0.6 % Normal 0.2-2.0 [facility] Comment on above: Performed By: #### C BC #### [facility] [address] [place] [address] Dr. Yariel Herrera EO # 0.1 103/ul Normal 0.0-0.7 [facility] Comment on above: Performed By: #### C BC #### [facility] [address] [place] [address] Dr. Yariel Herrera Eosinophils/100 WBC (Bld) 0.9 % Normal 0.9-7.0 [facility] Comment on above: Performed By: #### C BC #### [facility] [address] [place] [address] Dr. Yariel Herrera Erythrocyte distribution width (RBC) [Ratio] 13.8 % Normal 11.0-15.0 [facility] Comment on above: Performed By: #### C BC #### [facility] [address] [place] [address] Dr. Yariel Herrera Hematocrit (Bld) [Volume fraction] 47.1 % Normal 36.0-48.0 [facility] Comment on above: Performed By: #### C BC #### [facility] [address] [place] [address] Dr. Yariel Herrera Hemoglobin (Bld) [Mass/Vol] 15.2 g/dL Normal 12.0-16.0 [facility] Comment on above: Performed By: #### C BC #### [facility] [address] [place] [address] Dr. Yariel Herrera IG # 0.04 10e3/ul Critically high 0.00-0.03 [facility] Comment on above: Performed By: #### C BC #### [facility] [address] [place] [address] Dr. Yariel Herrera IG % 0.3 % Normal 0.0-0.5 [facility] Comment on above: Performed By: #### C BC #### [facility] [address] [place] [address] Dr. Yariel Herrera LYMPH # 3.7 103/ul Normal 1.2-3.8 [facility] Comment on above: Performed By: #### C BC #### [facility] [address] [place] [address] Dr. Yariel Herrera Lymphocytes/100 WBC (Bld) 30.6 % Normal 20.5-60.0 [facility] Comment on above: Performed By: #### C BC #### [facility] [address] [place] [address] Dr. Yariel Herrera MANUAL DIFF REQ NO Normal [facility] Comment on above: Performed By: #### C BC #### [facility] [address] [place] [address] Dr. Yariel Herrera MCH (RBC) [Entitic mass] 32.0 pg Normal 26.7-34.0 [facility] Comment on above: Performed By: #### C BC #### [facility] [address] [place] [address] Dr. Yariel Herrera MCHC (RBC) [Mass/Vol] 32.3 g/dL Normal 29.9-35.2 [facility] Comment on above: Performed By: #### C BC #### [facility] [address] [place] [address] Dr. Yariel Herrera MCV (RBC) [Entitic vol] 99.2 fL Critically high 81.0-99.0 [facility] Comment on above: Performed By: #### C BC #### [facility] [address] [place] [address] Dr. Yariel Herrera MONO # 0.9 103/ul Critically high 0.3-0.8 [facility] Comment on above: Performed By: #### C BC #### [facility] [address] [place] [address] Dr. Yariel Herrera Monocytes/100 WBC (Bld) 7.4 % Normal 1.7-12.0 [facility] Comment on above: Performed By: #### C BC #### [facility] [address] [place] [address] Dr. Yariel Herrera NEUT # 7.3 103/ul Critically high 1.4-6.5 [facility] Comment on above: Performed By: #### C BC #### [facility] [address] [place] [address] Dr. Yariel Herrera Neutrophils/100 WBC (Bld) 60.2 % Normal 43.0-75.0 [facility] Comment on above: Performed By: #### C BC #### [facility] [address] [place] [address] Dr. Yariel Herrera Platelet mean volume (Bld) [Entitic vol] 11.7 fL Normal 9.5-13.5 [facility] Comment on above: Performed By: #### C BC #### [facility] [address] [place] [address] Dr. Yariel Herrera PLT 330 103/ul Normal 150-450 [facility] Comment on above: Performed By: #### C BC #### [facility] [address] [place] [address] Dr. Yariel Herrera RBC 4.75 106/ul Normal 4.20-5.40 [facility] Comment on above: Performed By: #### C BC #### [facility] [address] [place] [address] Dr. Yariel Herrera WBC 12.1 103/ul Critically high 4.0-11.0 [facility] Comment on above: Performed By: #### C BC #### [facility] [address] [place] [address] Dr. Yariel Herrera FREE T3on 08-04-2021 FREE T3 2.46 pg/mlL Normal 2.18-3.98 [facility] Comment on above: Performed By: #### C BC #### [facility] [address] [place] [address] Dr. Yariel Herrera FREE T4on 08-04-2021 Free T4 [Mass/Vol] 1.08 ng/dL Normal 0.76-1.46 [facility] Comment on above: Performed By: #### F T4 #### [facility] [address] [place] [address] Dr. Yariel Herrera PROF 14(COMP METB)on 022 Albumin [Mass/Vol] 4.2 g/dL Normal 3.4-5.0 [facility] Comment on above: Performed By: #### C BC #### [facility] [address] [place] [address] Dr. Yariel Herrera Albumin/Globulin [Mass ratio] 1.2 {ratio} Normal [facility] Comment on above: Performed By: #### C BC #### [facility] [address] [place] [address] Dr. Yariel Herrera ALP [Catalytic activity/Vol] 87 U/L Normal 46-116 [facility] Comment on above: Performed By: #### C BC #### [facility] [address] [place] [address] Dr. Yariel Herrera ALT [Catalytic activity/Vol] 25 U/L Normal 14-59 [facility] Comment on above: Performed By: #### C BC #### [facility] [address] [place] [address] Dr. Yariel Herrera Anion gap [Moles/Vol] 13.3 mmol/L Normal [facility] Comment on above: Performed By: #### C BC #### [facility] [address] [place] [address] Dr. Yariel Herrera AST [Catalytic activity/Vol] 15 U/L Normal 15-37 [facility] Comment on above: Performed By: #### C BC #### [facility] [address] [place] [address] Dr. Yariel Herrera Bilirubin [Mass/Vol] 0.5 mg/dL Normal 0.2-1.0 [facility] Comment on above: Performed By: #### C BC #### [facility] [address] [place] [address] Dr. Yariel Herrera Calcium [Mass/Vol] 9.6 mg/dL Normal 8.5-10.1 [facility] Comment on above: Performed By: #### C BC #### [facility] [address] [place] [address] Dr. Yariel Herrera Chloride [Moles/Vol] 103 mmol/L Normal 98-107 [facility] Comment on above: Performed By: #### C BC #### [facility] [address] [place] [address] Dr. Yariel Herrera CO2 [Moles/Vol] 28.9 mmol/L Normal 21.0-32.0 [facility] Comment on above: Performed By: #### C BC #### [facility] [address] [place] [address] Dr. Yariel Herrera Creatinine [Mass/Vol] 0.84 mg/dL Normal 0.55-1.02 [facility] Comment on above: Performed By: #### C BC #### [facility] [address] [address] [address] Yariel Herrera EGFR-AF KAZAKH >60 Normal >=60 [facility] Comment on above: Performed By: #### C BC #### [facility] [address] [address] [address] Yariel Herrera EGFR-NON AF KAZAKH >60 Normal >=60 [facility] Comment on above: Performed By: #### C BC #### [facility] [address] [address] [address] Yariel Herrera Globulin (S) [Mass/Vol] 3.4 g/dL Normal [facility] Comment on above: Performed By: #### C BC #### [facility] [address] [place] [address] Dr. Yariel Herrera Glucose [Mass/Vol] 111 mg/dL Critically high 74-106 [facility] Comment on above: Performed By: #### C BC #### [facility] [address] [address] [address] Yariel Herrera Potassium [Moles/Vol] 4.2 mmol/L Normal 3.5-5.1 [facility] Comment on above: Performed By: #### C BC #### [facility] [address] [place] [address] Dr. Yariel Herrera Protein [Mass/Vol] 7.6 g/dL Normal 6.4-8.2 [facility] Comment on above: Performed By: #### C BC #### [facility] [address] [address] [address] Yariel Herrera Sodium [Moles/Vol] 141 mmol/L Normal 136-145 [facility] Comment on above: Performed By: #### C BC #### [facility] [address] [address] [address] Yariel Herrera Urea nitrogen [Mass/Vol] 15.0 mg/dL Normal 7.0-18.0 [facility] Comment on above: Performed By: #### C BC #### [facility] [address] [place], [place] [address] Dr. Yariel Herrera Urea nitrogen/Creatinine [Mass ratio] 17.9 mg/mg Normal [facility] Comment on above: Performed By: #### C BC #### [facility] [address] [place], [place] [address] Dr. Yariel Herrera TSHon 08-04-2021 TSH 1.073 uIU/mL Normal 0.358-3.740 [facility] Comment on above: Performed By: #### C BC #### [facility] [address] [place], [place] [address] Dr. Yariel Herrera TSH RANGE SEE BELOW Normal [facility] Comment on above: Result Comment: <0.3 4 UIU/ml HYPERTHYROID 0.34-5.60 UIU/ml EUTHYROID >5.60 UIU/ml HYPOTHYROID Performed By: #### C BC #### [facility] [address] [address] [address] Yariel Herrera Encounters Encounter Date Encounter Type Care Provider Facility Start: 06-14-2023 End: 06-15-2023 ambulatory Lara Mar MD Facility:[facility] Start: 05-25-2023 End: 05-26-2023 ambulatory Physician Unavailable Facility:[facility] Start: 05-10-2023 End: 05-11-2023 ambulatory Lara Mar MD Facility:[facility] Start: 05-04-2023 End: 05-05-2023 ambulatory Delfino Snider III, MD Facility:[facility] Start: 04-26-2023 End: 04-26-2023 ambulatory GAYLA MARTINEZ Not Available Start: 04-08-2023 Clinisync Result Encounter Gayla Martinez [employer] Work Phone: [facility] Unsolicited Start: 04-08-2023 Clinisync Result Encounter Gayla Martinez [employer] Work Phone: [facility] Unsolicited Start: 04-07-2023 Refill Gayla Martinez [employer] Work Phone: [facility] Comment on above: COPD with exacerbati on (CMS/HCC) (Primary Dx) Start: 02-08-2023 End: 02-09-2023 ambulatory Dasha Waggoner PA-C Facility[facility] Start: 01-25-2023 End: 01-25-2023 ambulatory GAYLA MARTINEZ Not Available Start: 01-19-2023 End: 01-19-2023 ambulatory DANTE HAND [facility] Start: 12-22-2022 End: 12-23-2022 [facility] Start: 11-26-2022 End: 11-27-2022 ambulatory [facility] Ed[facility]-C Facility:[facility] Start: 11-23-2022 End: 11-24-2022 ambulatory Lara Mar MD Facility: [facility] Start: 10-15-2022 End: 10-16-2022 ambulatory Dasha Waggoner PA-C [facility] Start: 09-16-2022 End: 09-17-2022 ambulatory [facility] Edilson PA-C Facility:Neurosurg [facility] Start: 08-21-2022 End: 08-24-2022 Evaluation and management of inpatient Delfino Snider III, MD Facility:[facility] Start: 08-14-2022 End: 08-15-2022 ambulatory Delfino Snider III, MD Facility:[facility] Start: 08-10-2022 End: 08-11-2022 ambulatory Delfino Snider III, MD Facility:[facility] Start: 08-06-2022 ambulatory Delfino Snider III, MD Facility:[facility] Start: 07-23-2022 End: 07-24-2022 ambulatory [facility] PA-C Facility:Neurosurg [facility] Start: 07-03-2022 End: 07-03-2022 ambulatory [facility] Start: 06-24-2022 End: 06-25-2022 [facility] Start: 06-17-2022 End: 06-18-2022 ambulatory INA JOHNSON Facility:[facility] Start: 06-10-2022 End: 06-10-2022 ambulatory INA JOHNSON [facility] Start: 05-08-2022 End: 05-09-2022 ambulatory CALR WILLIS Facility:[facility] Start: 01-05-2022 End: 01-06-2022 ambulatory MOHAMAD DANNIHOTHANI Facility:[facility] Start: 11-05-2021 End: 11-06-2021 ambulatory LABEL OPERATOR GAYLA MARTINEZ Facility:[facility] Start: 10-16-2021 End: 10-17-2021 ambulatory CARL WILLIS Facility:[facility] Start: 09-16-2021 End: 09-17-2021 ambulatory LABEL OPERATOR GAYLA MARTINEZ Facility:[facility] Start: 08-04-2021 End: 08-05-2021 ambulatory LABEL OPERATOR GAYLA MARTINEZ Facility:[facility] Procedures Date Procedure Procedure Detail Performing Clinician Start: 04-08-2023 [facility] INFLUENZA A AND B AG Gayla Michelle [employer] Work Phone: Start: 12-03-2022 Mammography Gayla Hobbstuckertucker justus [employer] Work Phone: Start: 04-20-2013 Colonoscopy Gayla Ruiz justus [employer] Work Phone: Plan of Treatment Date Care Activity Detail Author Start: 09-08-2026 Screening for malign ant neoplasm of colon [facility] Start: 12-04-2023 Screening for malign ant neoplasm of breast Mammogram [facility] Start: 09-30-2023 ambulatory Ambulatory Facility:[facility] Start: 08-22-2023 Influenza vaccination Influenza Vacc ine (#1) [facility] Comment on above: Postponed from 10/23 (Other Medical Reasons) Start: 07-24-2023 Screening for malign ant neoplasm of cervix Cervical Cancer Screening [facility] Comment on above: Postponed from 02/03 (Other Medical Reasons) Start: 05-30-2023 Urine screening for protein Diabetes: Urine Protein Screening [facility] Start: 04-26-2023 Glaucoma screening Diabetes: R etinopathy Screening [facility] Comment on above: Postponed from 02/03 (Other Medical Reasons) Start: 04-26-2023 End: 04-26-2023 Patient encounter procedure 04/26/2023 9:00 AM EST Office Visit [facility] [address] [place] [address] Gayla Martinez, ROSI [address] [place] [id number] [facility] Start: 03-05-2023 Hemoglobin A1c measurement Diabetes: Hemoglobin A1C [facility] Start: 02-03-1990 Screening for malign ant neoplasm of cervix HPV/Cotest [facility] Start: 02-03-1981 Screening for malign ant neoplasm of cervix Pap Smear [facility] Start: 1960 Screening for malign ant neoplasm of colon [facility] Immunizations Immunization Date Immunization Notes Care Provider Fa cili 01-06-2022 influenza virus vacc ine, unspecified formulation Gayla Martinez [employer] Work Phone: [facility] Payers Date Payer Category Payer Private Health Insurance 2022 Medicaid [employer] [id number] 2022-Present [address] [place] [address] [id number] 1960 Unknown [id number] 2.16.840.1.698995.3.579.2. 593 1960 Unknown [id number] 2.16.840.1.535977.3.579.2. 593 1960 Unknown [id number] 2.16.840.1.474615.3.579.2. 593 1960 Unknown [id number] 2.16.840.1.739353.3.579.2. 593 1960 Unknown [id number] 2.16.840.1.711330.3.579.2. 593 1960 Unknown [id number] 2.16.840.1.324104.3.579.2. 593 1960 Unknown [id number] 2.16.840.1.065396.3.579.2. 593 1960 Unknown [id number] 2.16.840.1.318882.3.579.2. 1259 1960 Unknown [id number] 2.16.840.1.851659.3.579.2. 1259 1960 Unknown [id number] 2.16.840.1.771284.3.579.2. 196 1960 Unknown [id number] 2.16.840.1.896338.3.579.2. 196 1960 Unknown [id number] 2.16.840.1.222249.3.579.2. 196 1960 Unknown [id number] 2.16.840.1.161961.3.579.2. 196 1960 Unknown [id number] 2.16.840.1.754808.3.579.2. 196 1960 Unknown [id number] 2.16.840.1.178757.3.579.2. 196 1960 Unknown [id number] 2.16.840.1.819589.3.579.2. 196 1960 Unknown [id number] 2.16.840.1.224270.3.579.2. 196 1960 Unknown [id number] 2.16.840.1.006803.3.579.2. 196 1960 Unknown [id number] 2.16.840.1.008950.3.579.2. 196 1960 Unknown [id number] 2.16.840.1.730871.3.579.2. 196 1960 Unknown [id number] 2.16.840.1.330759.3.579.2. 196 1960 Unknown [id number] 2.16.840.1.397234.3.579.2. 1960 Unknown [id number] 2.16.840.1.116583.3.579.2. 1960 Unknown [id number] 2.16.840.1.351994.3.579.2. 1960 Unknown [id number] 2.16.840.1.386861.3.579.2. 1960 Unknown [id number] 2.16.840.1.584041.3.579.2. 1960 Unknown [id number] 2.16.840.1.138640.3.579.2. 196 1959 Unknown [id number] 1959 Unknown [id number] Social History Date Type Detail Facility Start: 01-25-2023 Tobacco smoking stat [facility] Smokes tobacco daily [facility] History of tobacco use [facility]igarette [facility] Start: 01-25-2023 Cigarettes smoked cu rrent (pack per day) - Reported 0.5 [facility] Start: 01-25-2023 Tobacco use and exposure Smoke less tobacco non-user [facility] Start: 02-08-2023 Alcohol intake Lifetime non-d mariaa (finding) [facility] Start: 01-25-2023 Tobacco use panel [facility] Start: 1960 Sex Assigned At Not on file [facility] Medical Equipment Procedure Code Equipment Code Equipment Original Text Equi pment Identifier Dates 1 Device Daily as needed. [id number] Clinical Notes 06-10-2022 to 01-19-2023 Note Date & Type Note Facility 01-19-2023 Note Cardiovascular Medic [facility] SUBJECTIVE Chief Complaint Patient presents with Follow-up Hypertension Stephan López is a 62 y.o. female here for follow-up. HPI PMHx: HTN, pericardial effusion, HLD She denies any cardiac concerns today. She has back problems. She is 5 months s/p surgery and she is still recovering. She is following with pain management at [facility]. She is not currently checking her [...] needed. Dante Hand NP [facility] Cardiovascular Medicine [facility] 01-19-2023 Note Patient here for 6 m [...] All other systems reviewed and are negative. [facility] 08-24-2022 Note Admission Mat Hayes 62-year-old female [...] neurosurgery education form Follow-up: As scheduled preoperatively-call [phone] to confirm appointment to be seen in the neurosurgery clinic approximately 2 weeks after surgery Procedures while admitted: -Decompressive laminectomies of L3 and L4 as well as superior third of L5 with total foraminotomies bilateral L3-4 and L4-5; interbody arthrodesis L4-5 using TLIF technique with locally harvested autograft from laminectomy and [employer] elevate expandable cage 8-12 mm; posterolateral arthrodesis L3-L4 and L5 bilaterally with locally harvested autograft and small kit infuse from [employer] due to chronic nicotine abuse; transpedicular fixation L3, L4, L5 bilaterally with [employer] Osteogrip screws 6.5 mm in diameter; resection of juxta articular facet cyst left L4-5; computer-assisted hardware placement using [employer] station and [employer] O-arm Medications Home atorvastatin 20 mg oral [...] oral capsule, 500 mg= 1 caps, Oral, [id number] Times magnesium hydroxide 8% oral suspension, 1.2 [...] Refill(s), 08/31/22 7:48:00 EDT, Pharmacy: [facility] #[id number] Discharge Patient 3. Lumbar radiculopathy Ordered: Discharge Patient 4. Nicotine dependence Ordered: Discharge Patient Orders: ascorbic acid, 1 tabs, Oral, q8hr, # 270 tabs, 0 Refill(s), Pharmacy: [facility] #[id number] cephalexin, 500 mg, Oral, Cap, [id number] Times for 12 doses, First Dose: 08/24/22 12:00:00 EDT, Stop Date: 08/27/22 11:59:00 EDT, Dispense From Location: [address], Prophylaxis- Pre/Post-Op, 08/24/22 7:40:00 EDT cephalexin, 1 caps, Oral, [id number] Times, X 3 days, # 12 caps, 0 Refill(s), 08/27/22 7:47:00 EDT, Pharmacy: [facility] #[id number] docusate, 1 caps, Oral, BID, # 14 caps, 0 Refill(s), Pharmacy: [facility] #[id number] ferrous sulfate, 1 tabs, Oral, BID, # 60 tabs, 0 Refill(s), Pharmacy: [id number] magnesium hydroxide, 15 mL, Ora (more content not included)... [facility] 07-03-2022 Note No concerning symptoms [facility] 07-03-2022 Note Hypertension is well controlled 120/84 Reviewed b/p log and overall her b/p is controlled with some outliers of high and low b/p. Renal function was normal s/p starting lisinopril [facility] 07-03-2022 Note Patient here for 1 m [...] All other systems reviewed and are negative. [facility] 07-03-2022 Note [facility] CARDIOLOGY PROGR ESS NOTE [...] effusion No concerning symptoms RTC 6 months [facility] 06-10-2022 Note F/U with PCP [facility] 06-10-2022 Note Hypertension is 145/ 99 uncontrolled Will start lisinopril 2.5 mg daily BMP in 1 week Start monitoring b/p at home and record on a log, RTC 1 month D/W pt about side effects of 1st dose low b/p and dry persistent cough [facility] 06-10-2022 Note Recent echo with not ed trivial effusion. No recent illness or any concerning symptoms [facility] 06-10-2022 Note [facility]TP CARDIOLOGY PROGR ESS NOTE HPI: Stephan López is a 62 y.o. female here for routine f/U for pericardial effusion. At the time, patient denied any cardiac complaints. She denied any chest pain or shortness of breath. She denies any cardiac history. No history of MT, PCI, CHF. Repeat echocardiogram demonstrated a trivial [...] with PCP RTC 1 month for re-evaluation [facility] 06-10-2022 Note Patient here for 6 m o follow up pericardial effusion. Had echo in April 2022. Denies chest pain and SOB. Review of Systems Musculoskeletal: Positive for back pain. All other systems reviewed and are negative. [facility] Evaluation note Diagnosis COPD with exacerbation (CMS/HCC)- [...] DATE CREATED AUTHOR 06/21/2022 [facility] DATE CREATED AUTHOR AUTHOR'S ORGANIZ ATION 03/20/2023 [facility] DATE CREATED AUTHOR AUTHOR'S ORGANIZ ATION 04/26/2023 [facility] EPIC DATE CREATED AUTHOR AUTHOR'S ORGANIZ ATION 06/18/2023 [facility] Care Teams (unrecognized sec tion and content) [employer] Relationship Specialty Start Date End Date Jim Deleon MD [address] [place] [phone] PCP - General Family Medicine 09/18/22 Gayla Martinez NP [address] [place] [phone] Referring Physician Nurse Practitioner 09/18/22 [employer] Relationship Specialty Start Date End Date Jim Deleon MD [address] [place] [phone] PCP - General Family Medicine 09/18/22 Gayla Martinez NP [address] [place] [phone] Referring Physician Nurse Practitioner 09/18/22 FOR RECORDS [...] BE BASED ON THE PRIMARY CLINICAL RECORDS. [facility]. provides no warranty or guarantee of the accuracy or completeness of information in this document.
[2023-07-05 09:56] VITALS: BP 126/80; PULSE 90; TEMP 36.1; O2SAT 100
[2023-07-05 09:56] LABS: Glucometer 127 mg/dL (74-106)
[2023-07-05] MEDS: BUPIVACAINE HCL 0.25% PF 25 MG/10 ML VIAL INJ (10:28)
[2023-07-05] MEDS: LIDOCAINE HCL 2% 400 MG/20 ML MDV 15 ML INJ (10:28)
[2023-07-05 10:30] VITALS: BP 116/69; PULSE 77; O2SAT 93
[2023-07-05 10:31] VITALS: BP 111/66; PULSE 80; O2SAT 95
--- NOTE | 2023-07-05 10:32 | W.PM.PROCNOT ---
Date of procedure: 07/05/23 Pre-op diagnosis: Lumbar spondylosis Post-op diagnosis: same as pre-op Procedure: Procedure: Bilateral L5-S1 medial branch block Medications: Bupivacaine 0.25% 4cc The patient was seen and examined in the preoperative holding area.? An informed consent was obtained and placed on the chart.? The patient was brought to the medical procedure unit and placed in the prone position.? A timeout was completed verifying correct patient, procedure site, positioning, plan, and special equipment.? Using aseptic technique, the needle was placed at left L5. Under direct fluoroscopic visualization a Quincke-tipped spinal needle was advanced to the junction of the superior articulating process with the transverse process at the designated medial branch segment.? Preceded by negative aspiration, the above-mentioned injectate was placed in 1 mL aliquots.? The procedure was repeated at left S1.? The needle was removed and insertion site was covered. The same procedure, at the same levels, was completed on the right side. The patient was taken to the postprocedural recovery area and monitored for an appropriate length of time before found suitable for discharge in the company of a responsible adult. Anesthesia: Local Surgeon: Lara Mar Pathology: none sent Condition: stable Disposition: no change
== END 2023-07-05 10:35 | disposition home or self-care (01) ==
PROVIDERS: PCP Nurse Practitioner; Visit Provider Anesthesiology
DX: M47.816 Spondylosis without myelopathy or radiculopathy, lumbar region (principal)
CPT/HCPCS: 36415; 64493; 82948

== ENCOUNTER 2023-07-14 09:41 | Outpatient (OUT) | payer OTHER, SELFPAY ==
--- OUTSIDE RECORDS SUMMARY | 2023-07-14 09:45 | XMS_ITS | CCD ---
Author Organization [facility] Inform ion Partnership [facility] Care Team Providers Care Brick Pointer Name Role Phone ALBA MOHAMAD Attending Unavailable AICHHOLZ, 2ND GRADE TEACHER GAYLA Primary Care Unavailable ALGHOTHANI, MOHAMAD Consulting Unavailable ALGHOTHANI, MOHAMAD Admitting Unavailable AICHHOLZ, 2ND GRADE TEACHER GAYLA Primary Care Unavailable AICHHOLZ, 2ND GRADE TEACHER GAYLA Admitting Unavailable AICHHOLZ, 2ND GRADE TEACHER GAYLA Attending Unavailable AICHHOLZ, 2ND GRADE TEACHER GAYLA Consulting Unavailable ALGHOTHANI, MOHAMAD Attending Unavailable AICHHOLZ, 2ND GRADE TEACHER GAYLA Primary Care Unavailable ALGHOTHANI, MOHAMAD Consulting Unavailable ALGHOTHANI, MOHAMAD Admitting Unavailable ALGHOTHANI, MOHAMAD Attending Unavailable AICHHOLZ, 2ND GRADE TEACHER GAYLA Primary Care Unavailable ALGHOTHANI, MOHAMAD Consulting Unavailable ALGHOTHANI, MOHAMAD Admitting Unavailable ALEX, INA Attending Unavailable ALEX, INA Admitting Unavailable ALEX, INA Consulting Unavailable AICHHOLZ, 2ND GRADE TEACHER GAYLA Primary Care Unavailable AICHHOLZ, 2ND GRADE TEACHER GAYLA Admitting Unavailable AICHHOLZ, 2ND GRADE TEACHER GAYLA Attending Unavailable AICHHOLZ, 2ND GRADE TEACHER GAYLA Consulting Unavailable AICHHOLZ, 2ND GRADE TEACHER GAYLA Primary Care Unavailable AICHHOLZ, 2ND GRADE TEACHER GAYLA Admitting Unavailable AICHHOLZ, 2ND GRADE TEACHER GAYLA Attending Unavailable AICHHOLZ, 2ND GRADE TEACHER GAYLA Consulting Unavailable AICHHOLZ, 2ND GRADE TEACHER GAYLA Primary Care Unavailable ALEX, INA Attending Unavailable ALEX, INA Attending Unavailable DANTE HAND Attending Unavailable Aichholz THERAPEUTIC MASSAGE TECHNICIAN, Gayla Unavailable Pancho BOWIE, Jim Primary Care Provider [phone] GAYLA MARTINEZ Attending Unavailable JOANNAHHOLZ, GAYLA Attending Unavailable Edilson PA-C, Dasha Pedro Attending Unavailab rose Snider III, MD, Delfino Freeman Admitting U kasey Snider III, MD, Delfino Freeman Attending U kasey Snider III, MD, Delfino Freeman Consulting U [...] III, MD, Delfino Freeman Attending U navailable Isabela BOWIE, Lara Amos Attending Unavailable Isabela BOWIE, Lara Amos Attending Unavailable Isabela BOWIE, Andjeanne Amos Attending Unavailable Isabela BOWIE, Andrius Dandre Attending Unavailable Edilson PA-C, Dasha Pedro Attending Unavailab le Allergies Allergy Classification Reported Allergen(s) Allergy Type Date of Onset Reaction(s) Facility (3 sources) pregabalin; Translations: [PREGABALIN] Drug Allergy 3 [facility] Repository (1 source) No Known Medication Allergies; Translations: [No Known Medication Allergies] Propensity to adverse reactions to drug (disorder) [facility] Repository Medications Current Medications Medication Drug [...] oral solution (2 sources) alpha-Adrenergic Agonist, Uncompetitive D-iomesa-T-aspartat e Receptor Antagonist, Sigma-1 Agonist Start: 04-07-2023 [...] Translations: [ABNORMAL WEIGHT LOSS] Onset: 08-04-2021 Episodic Jovita-; endo-; and myocarditis; cardiomyopathy (except that caused [...] undergone an L5-S1 transforaminal SVITLANA 05/10/2023 by [facility] pain management which did give her approximately 2 to 3 weeks of incomplete benefit. She is planned for bilateral sacroiliac joint injections in the near future. The patient has discontinued her LSO brace that continues her electromagnetic stimulator 8 hours/day. Recent imaging (provider interpretation): Lumbar flexion/extension x-rays 04/30/2023 at [facility] reveals straightening of lumbar lordosis. Evidence of L3-5 posterior spinal fusion with instrumentation and interbody fusion L4-5. No evidence of hardware fracture or pullout. Patient found to have degenerative disc disease L2-3 and L5-S1. There is slight retrolisthesis L2-3 as well as unchanged anterior listhesis at her surgerized L4-5 segment. No evidence of dynamic instability. CT lumbar spine 02/03/2023 at [facility] reveals evidence of L3-5 posterior [...] prior imaging. CT lumbar spine 10/14/2022 at [facility] reveals evidence of L3-5 decompression [...] c (more content not included)... Normal [facility] INFLUENZA A AND B AGon 0 04-08-2023 INFLUENZA VIRUS A ANTIGEN Positive Abnormal [facility] Comment on above: NOTE: Live attenuate d influenza vaccine viruses can cause a positive result for a rapid influenza diagnostic test if administered up to 7 days prior to rapid testing. INFLUENZA VIRUS B ANTIGEN Negative [facility] Comment on above: Negative for Flu B p rotein antigen. Infection due to Flu B cannot be ruled out. Flu B antigen in the sample may be below the detection limit of the test. Interpretation and review of laboratory results Abnormal [facility] 36on 03-19-2023 36 Please let her know her labs showed normal kidney function. Can continue lisinopril. Thank you Normal [facility] Telephoneon 03-19-2023 Telephone [id number] James López 1960 F Date Provider Department Center 03/19/2023 EseDANTE HAND [facility] Family History Problem Relation Age of Onset Other Mother Heart attack Father Other Father Other Father Other Maternal Grandmother Family Status - Relation Status Age at Mother Father Maternal Grandmother Normal [facility] Neurosurgery Office/Clinic N oteon 02-08-2023 Neurosurgery Office/Clinic [...] and tizanidine as provided by pain management ([facility] pain management) only as needed and has not yet returned to NSAID medication. She continues to utilize nicotine and understands the deleterious effects of nicotine on her overall health and bony arthrodesis. Recent imaging (provider interpretation): CT lumbar spine 02/03/2023 at [facility] reveals evidence of L3-5 posterior [...] prior imaging. CT lumbar spine 10/14/2022 at [facility] reveals evidence of L3-5 decompression [...] bladder inc (more content not included)... Normal [facility] Office Visiton 01-19-2023 Follow-up visit [id number] James López 1960 F Date Provider Department Center 01/19/2023 DANTE BAIG ROXY Ramsay Family History Problem Relation Age of Onset Other Mother Heart attack Father Other Father Other Father Other Maternal Grandmother Family Status - Relation Status Age at Mother Father Maternal Grandmother Level of Service:31002 LA OFFICE/OUTPATIENT ESTABLISHED LOW MDM 20-29 MIN Reason for Visit and Comments: Follow-up [367563] Hypertension [084735] Normal [facility] Neurosurgery Office/Clinic N zain 12-22-2022 Neurosurgery Office/Clinic [...] 2 times per week. She follows with [facility] pain management which is a transition from [facility] pain management group. She continues to [...] prior imaging. CT lumbar spine 10/14/2022 at [facility] reveals evidence of L3-5 decompression [...] demonstrates normal respiratory effort She presents in [facility] lock brace with proper fit and alignment. This was removed at the time of today's visit for incision evaluation. Lumbosacral incision appears well-healed and without erythema, edema, drainage or warmth. She notes mild tenderness (more content not included)... Normal [facility] Neurosurgery Office/Clinic N zain 11-26-2022 Neurosurgery [...] she recently transferred pain management care from [facility] to [facility]. Per the patient, they eventually would like her to initiate hot water physical therapy though only after receiving clearance from this office. Recent imaging (provider interpretation): CT lumbar spine 10/14/2022 at [facility] reveals evidence of L3-5 decompression [...] demonstrates normal respiratory effort She presents in [facility] lock brace with proper fit and alignment. This was removed at the time of today's visit for incision evaluation. Lumbosacral incision appears well-healed and without erythema, edema, drainage or warmth. She notes mild tenderness to palpation of the upper to mid jovita-incisional area/lumbar spine tender as well as throughout [...] lower extre (more content not included)... Normal [facility] Neurosurgery Office/Clinic N stephieon 10-15-2022 Neurosurgery [...] (provider interpretation): CT lumbar spine 10/14/2022 at [facility] reveals evidence of L3-5 decompression [...] She denies tenderness to palpation of the jovita-incisional area or lumbosacral spine though finds to [...] Lumbar w/o (more content not included)... Normal [facility] Provider Letteron 10-15-2022 Provider Letter [facility] [address], [phone] [id number] Date: 10/15/2022 17:05:57 To Whom It May Concern: This is to verify that Rene Shelley Ceballos was under our care on 10/15/2022 16:00:00. Stated patient underwent an L3-5 posterior spinal fusion on 08/21/22 with instrumentation utilizing Medtronic osteogrip titanium screws. If you have any questions or concerns please call our office at [phone]. 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 [...] and manner are appropriate. She presents in [facility] brace which was removed at the time of today's visit for incision evaluation. Chest exam reveals heart sounds S1, S2 regular rate and rhythm without murmurs, clicks, rubs or gallops. The patient demonstrates normal respiratory effort and lungs clear to auscultation bilaterally without adventitious sounds. Lumbosacral incision appears clean, dry, intact and without erythema, drainage or warmth. Very minimal jovita-incisional edema at the superiormost aspect of her incision consistent with mild postoperative hematoma. Surgical sridevi in place. These were removed atraumatically and the incision painted with povidone iodine, dressed with sterile gauze and paper tape. She denies tenderness to palpation of the jovita-incisional area or lumbosacral spine though finds to [...] No redness (more content not included)... Normal [facility] Inpatient Clinical Summaryon 08-24-2022 Inpatient Clinical Summary [facility] [address] [place] [address] [address] Clinical Summary Person Information Name: Shelley López Age: 62 Years : 1960 Sex: Female PCP: Marital Status: Phone: PCP: Race: White Ethnicity: Not or Language: French Visit Id: Visit Reason: Speciality: Acuity: Enc Type: Inpatient Med Service: Surgery Arrival: 08/21/2022 06:28:12 Discharge: Dispo Type: Address: [address] [place] [id number] Diagnosis: 1:Lumbar stenosis with neurogenic claudication; 2:Spondylolisthesis, [...] range between ( 27.2 and 40.8 ) [place] Auto: 8.9 % -- Normal range between [...] range between ( 36.0 and 46.0 ) [place] Absolute: 1.8 x10 MCH: 31.8 pg -- [...] [facility] New Medications [id number], [address], [place] [id number], [phone] ascorbic acid (ascorbic acid 500 mg oral [...] magnesium hydroxi (more content not included)... Normal [facility] Neurosurgery Progress Noteon 08-24-2022 Neurosurgery Progress [...] Date: 08/27/22 7:59:00 EDT, Dispense From Location: Pdpkcbz-UGO-6Y, Prophylaxis- Pre/Post-Op, 08/24/22 7:40:00 EDT scopolamine, 1 patches, TD, Film-ER, q72hr, First Dose: 08/24/22 7:40:00 EDT, Dispense From Location: Cesilia-Servando, 08/24/22 7:40:00 EDT traMADol, 100 mg, Oral, Tab, q4hr, PRN severe pain [7-10 on pain scale], First Dose: 08/23/22 9:04:00 EDT, Dispense From Location: Uohcaxi-ZMD-9Y, 08/23/22 9:04:00 EDT traMADol, 50 mg, Oral, Tab, q4hr, PRN moderate pain [4-6 on pain scale], First Dose: 08/23/22 9:04:00 EDT, Dispense From Location: Laczkkl-OFK-9Z, 08/23/22 9:04:00 EDT Surgical Drains Subjective: Patient [...] MD, Delfino Freeman 08/24/22 07:45 EDT Normal [facility] Neurosurgery Progress Noteon 08-23-2022 Neurosurgery Progress [...] Dose: 08/23/22 9:04:00 EDT, Dispense From Location: Dklhsrt-JSM-2X, 08/23/22 9:04:00 EDT traMADol, 50 mg, Oral, Tab, q4hr, PRN moderate pain [4-6 on pain scale], First Dose: 08/23/22 9:04:00 EDT, Dispense From Location: Whjscnj-JGL-2C, 08/23/22 9:04:00 EDT Surgical Drains Subjective: Patient [...] Snider III, MD 08/23/22 09:14 EDT Normal [facility] POC Glucose Randomon 023 Glucose [Mass/Vol] 114 mg/dL High 70-99 [facility] Comment on above: Performed By: #### C [id number] ####[place] [address] Glucose [Mass/Vol] 114 mg/dL High 70-99 [facility] Comment on above: Performed By: #### . Automated Diff #### [facility] [address] [place] [address] .eGFRon 08-22-2022 GFR/1.73 sq M.predicted MDRD (S/P/Bld) [Vol rate/Area] mL/min/{1.73_m2} Normal >=60 [facility] Comment on above: Result Comment: [facility] have implemented the eGFR calculation [...] = years Performed By: #### E GFR ####[facility] [place] [address] Basic Metabolic Profileon Anion gap [Moles/Vol] 12 mmol/L Normal 7-17 [facility] Comment on above: Performed By: #### . Automated Diff #### [facility] [address] [place] [address] Calcium [Mass/Vol] 8.5 mg/dL Normal 8.5-10.3 [facility] Comment on above: Performed By: #### . Automated Diff #### [address] [address] Chloride [Moles/Vol] 101 mmol/L Normal 98-110 [facility] Comment on above: Performed By: #### . Automated Diff #### [address] [address] CO2 [Moles/Vol] 25 mmol/L Normal 22-32 [facility] Comment on above: Performed By: #### . Automated Diff #### [address] [address] Creatinine [Mass/Vol] 0.76 mg/dL Normal 0.44-1.03 [facility] Comment on above: Performed By: #### . Automated Diff #### [address] [address] Glucose [Mass/Vol] 116 mg/dL High 70-99 [facility] Comment on above: Performed By: #### . Automated Diff #### [address] [address] Potassium [Moles/Vol] 4.2 mmol/L Normal 3.4-4.8 [facility] Comment on above: Performed By: #### . Automated Diff #### [address] [address] Sodium [Moles/Vol] 134 mmol/L Normal 133-142 [facility] Comment on above: Performed By: #### . Automated Diff #### [address] [address] Urea nitrogen [Mass/Vol] 10 mg/dL Normal 8-26 [facility] Comment on above: Performed By: #### . Automated Diff #### [address] [address] Urea nitrogen/Creatinine [Mass ratio] 13.2 mg/mg Normal 10.0-20.0 [facility] Comment on above: Performed By: #### . Automated Diff #### [address] [address] CBC w/ Diffon 08-22-2022 Erythrocyte distribution width (RBC) [Ratio] 13.5 % Normal 11.6-14.8 [facility] Comment on above: Performed By: #### C BC ####[address] [address] Hematocrit (Bld) [Volume fraction] 36.3 % Normal 36.0-46.0 [facility] Comment on above: Performed By: #### C BC ####[address] [address] Hemoglobin (Bld) [Mass/Vol] 12.2 g/dL Normal 12.0-16.0 [facility] Comment on above: Performed By: #### C BC ####[address] [address] MCH (RBC) [Entitic mass] 31.8 pg Normal 27.0-35.0 [facility] Comment on above: Performed By: #### C BC ####[address] [address] MCHC 33.5 % Normal 31.0-37.0 [facility] Comment on above: Performed By: #### C BC ####[address] [address] MCV (RBC) [Entitic vol] 94.9 fL Normal 80.0-100.0 [facility] Comment on above: Performed By: #### C BC ####[address] [address] Platelet 282 x10*3/mcL Normal 150-450 [facility] Comment on above: Performed By: #### C BC ####[address] [address] Platelet mean volume (Bld) [Entitic vol] 9.0 fL Normal 6.7-10.6 [facility] Comment on above: Performed By: #### C BC ####[address] [address] RBC 3.82 x10*6/mcL Normal 3.80-5.20 [facility] Comment on above: Performed By: #### C BC ####[address] [address] WBC 20.4 x10*3/mcL High 4.5-11.0 [facility] Comment on above: Performed By: #### C BC ####[address] [address] Diff Autoon 08-22-2022 Baso Absolute 0.1 x10*3/mcL Normal 0.0-0.2 [facility] Comment on above: Performed By: #### . Automated Diff ####[address] [address] Basophils/100 WBC (Bld) 0.4 % Normal 0.0-1.5 [facility] Comment on above: Performed By: #### . Automated Diff ####[address] [address] Eos Absolute 0.0 x10*3/mcL Normal 0.0-0.4 [facility] Comment on above: Performed By: #### . Automated Diff ####[address] [address] Eosinophils/100 WBC (Bld) 0.1 % Normal 0.0-5.4 [facility] Comment on above: Performed By: #### . Automated Diff ####[address] [address] Lymph Absolute 2.4 x10*3/mcL Normal 1.0-4.8 [facility] Comment on above: Performed By: #### . Automated Diff ####[address] [address] Lymphocytes/100 WBC (Bld) 11.6 % Low 27.2-40.8 [facility] Comment on above: Performed By: #### . Automated Diff ####[address] [address] [place] Absolute 1.8 x10*3/mcL High 0.1-1.1 [facility] Comment on above: Performed By: #### . Automated Diff ####[address] [address] Monocytes/100 WBC (Bld) 8.9 % Normal 3.7-11.9 [facility] Comment on above: Performed By: #### . Automated Diff ####[address] [address] Neutro Absolute 16.1 x10*3/mcL High 1.8-7.7 [facility] Comment on above: Performed By: #### . Automated Diff ####[address] [address] Neutro Auto 79.0 % High 47.2-70.8 [facility] Comment on above: Performed By: #### . Automated Diff ####[address] [address] Neurosurgery Progress Noteon 08-22-2022 Neurosurgery Progress Note [...] mg, Oral, qAM baclofen, 5 mg, Oral, [id number] Times bisacodyl, 10 mg= 1 supp, Rectal, [...] Dose: 08/21/22 17:00:00 EDT, Dispense From Location: [address], 08/21/22 16:37:00 EDT baclofen, 5 mg, Oral, Tab, [id number]-[id number] Times, First Dose: 08/21/22 22:00:00 EDT, Dispense From Location: [address], 08/21/22 16:37:00 EDT bisacodyl, 10 mg, Rectal, Supp, Once, First Dose: 08/22/22 6:59:00 EDT, Stop Date: 08/22/22 6:59:00 EDT, Dispense From Location: [address], 08/22/22 6:59:00 EDT bisacodyl, 10 mg, Rectal, Supp, Daily, PRN constipation, First Dose: 08/22/22 9:00:00 EDT, Dispense From Location: [address], 08/22/22 9:00:00 EDT ceFAZolin, 2 g, IV Piggyback, Soln-IV, q8hr, infuse over 30 minutes, First Dose: 08/21/22 20:00:00 EDT, Dispense From Location: [address], Prophylaxis- Pre/Post-Op, 08/21/22 20:00:00 EDT docusate, 100 mg, Oral, Cap, BID, First Dose: 08/21/22 21:00:00 EDT, Dispense From Location: [address], 08/21/22 16:37:00 EDT ferrous sulfate, 325 mg, Oral, Tab, BID, First Dose: 08/21/22 21:00:00 EDT, Dispense From Location: [address], 08/21/22 16:37:00 EDT hydrALAZINE, 10 mg, IV Push, Injection, q10min, PRN hypertension, First Dose: 08/21/22 16:37:00 EDT, Dispense From Location: [address], 08/21/22 16:37:00 EDT labetalol, 10 mg, IV Push, Injection, q10min, PRN hypertension, First Dose: 08/21/22 16:37:00 EDT, Dispense From Location: [address], 08/21/22 16:37:00 EDT magnesium hydroxide, 30 mL, Oral, Susp, TID, First Dose: 08/21/22 22:00:00 EDT, Dispense From Location: [address], 08/21/22 16:37:00 EDT multivitamin with minerals, 1 tabs, Oral, Tab, Daily, First Dose: 08/22/22 9:00:00 EDT, Dispense From Location: [address], 08/21/22 16:37:00 EDT ondansetron, 4 mg, IV Push, Injection, q6hr, PRN nausea/vomiting, First Dose: 08/21/22 15:08:00 EDT, Dispense From Location: [facility], 08/21/22 15:08:00 EDT oxyCODONE-acetaminophe n, 1 tabs, Oral, Tab, q4hr, PRN moderate pain [4-6 on pain scale], First Dose: 08/21/22 16:37:00 EDT, Dispense From Location: [address], 08/21/22 16:37:00 EDT oxyCODONE-acetaminophe n, 2 tabs, Oral, Tab, q4hr, PRN severe pain [7-10 on pain scale], First Dose: 08/21/22 16:37:00 EDT, Dispense From Location: [address], 08/21/22 16:37:00 EDT sodium chloride, 10 mL, IV Push, Injection, As Indicated, PRN flush, First Dose: 08/21/22 16:37:00 EDT, Dispense From Location: [address], 08/21/22 16:37:00 EDT ADA Diet Ambulate Basic Metabolic Profile Blood Glucose Monitoring POC Cinch Loc Brace (EXOS Brace) Consult to Boiler Technician Incentive Spirometry Nursing to Encourage Intake and Output Mechanical Compression Device Neurological Checks Notify Provider Occupational Therapy Evaluation and Treatment Inpatient Oxygen Therapy Peripheral IV Insert and Maintain Physical Therapy Evaluation and Treatment Inpatient Pulse Oximetry Continuous Pulse Oximetry Continuous Resuscitation Status Straight Catheter Straight (more content not included)... Normal [facility] POC Glucose Randomon 023 Glucose [Mass/Vol] 124 mg/dL High 70-99 [facility] Comment on above: Performed By: #### . Automated Diff #### [facility] [address] [place] [address] Glucose [Mass/Vol] 120 mg/dL High 70-99 [facility] Comment on above: Performed By: #### C [id number] ####[facility] [place] [address] Neurosurgery Progress Noteon 08-21-2022 Neurosurgery Progress Note [...] ceFAZolin, 2 g= 50 mL, IV Piggyback, Firefighter Marine Dilaudid, 0.5 mg= 0.5 mL, IV Push, q15min, PRN diphenhydrAMINE, 25 mg= 0.5 mL, IV Push, q6hr, PRN fentaNYL, 50 mcg= 1 mL, IV Push, q5min, PRN fentaNYL EXPERIMENTAL PLASTICS FABRICATOR, 300 mcg= 30 mL, IV EXPERIMENTAL PLASTICS FABRICATOR, [id number] Times, PRN lisinopril, 2.5 mg, Oral, Daily [...] Dose: 08/21/22 9:00:00 EDT, Dispense From Location: [facility], 08/21/22 6:35:00 EDT ceFAZolin, 2 g, IV Piggyback, Soln-IV, Firefighter Marine, infuse over 30 minutes, First Dose: 08/21/22 0:15:00 EDT, Dispense From Location: Fzcdqkz-OFA-MQ, Prophylaxis- Pre/Post-Op, 08/21/22 0:15:00 EDT diphenhydrAMINE, 25 mg, IV Push, Injection, q6hr, PRN itching, First Dose: 08/21/22 15:08:00 EDT, Dispense From Location: [facility], 08/21/22 15:08:00 EDT fentaNYL, 300 30 mcg mL, IV EXPERIMENTAL PLAST[employer] FABRICATOR, Loading Dose (mcg): 25, EXPERIMENTAL PLASTICS FABRICATOR Dose (mcg): 10, Lockout Interval (min): 8, Continuous Dose (mcg/hr): 25, 4-Hour Limit (mcg): 300, 2.5 mL/hr, pain PRN, Start Date: 08/21/22 15:08:00 EDT, [facility] lisinopril, 2.5 mg, Oral, Tab, Daily, First Dose: 08/21/22 9:00:00 EDT, Dispense From Location: [facility], 08/21/22 6:35:00 EDT metFORMIN, 500 mg, Oral, Tab, BID, First Dose: 08/21/22 9:00:00 EDT, Dispense From Location: [facility], 08/21/22 6:35:00 EDT nalbuphine, 2.5 mg, IV Push, Injection, q6hr, PRN refractory itching, First Dose: 08/21/22 15:08:00 EDT, Dispense From Location: Jfchlvb-RRU-QF, 08/21/22 15:08:00 EDT omeprazole, 40 mg, Oral, Cap-DR, Daily, First Dose: 08/21/22 7:00:00 EDT, Dispense From Location: [facility], 08/21/22 6:35:00 EDT ondansetron, 4 mg, IV Push, Injection, q6hr, PRN nausea/vomiting, First Dose: 08/21/22 15:08:00 EDT, Dispense From Location: [facility], 08/21/22 15:08:00 EDT pregabalin, 100 mg, Oral, Cap, BID, First Dose: 08/21/22 9:00:00 EDT, Dispense From Location: [facility], 08/21/22 6:35:00 EDT Admit to Inpatient [...] Snider III, MD 08/21/22 15:45 EDT Normal [facility] Operative Reporton 3 Operative Report Indication [...] cyst left L4-5; computer-assisted hardware placement using [employer] station and [employer] O-arm Surgeon(s) Delfino Snider III, MD (Surgeon - Primary) E Learning Manager Dasha Waggoner PA-C (Nursing Aide) Anesthesia General Opal BOWIE, Maulik Padron (Ndt Inspector) Koko Eugene (Provider) Estimated Blood Loss 300.0 [...] is secured. Patient is carefully turned onto [facility] operating room table and head and neck [...] spinous pro (more content not included)... Normal [facility] POC Glucose Randomon 023 Glucose [Mass/Vol] 152 mg/dL High 70-99 [facility] Comment on above: Performed By: #### . Automated Diff #### [facility] [address] [place] [address] Glucose [Mass/Vol] 206 mg/dL High 70-99 [facility] Comment on above: Performed By: #### C [id number] ####[facility] [place] [address] Glucose [Mass/Vol] 179 mg/dL High 70-99 [facility] Comment on above: Performed By: #### C [id number] ####[address] [address] XR Spine Lumbosacral 4 Views + in [...] Dictated DT/TM: 08/21/2022 4:57 pm Signed by: Isabel BOWIE, Bernice Choi Signed (Electronic Signature): 08/21/2022 5:00 pm (If Report Is Signed, Electronically Signed in Other Vendor System) Normal [facility] Provider Letteron 08-11-2022 Provider Letter Gayla Martinez, AGURAV [address] [place] [address] Re: Shelley López Date of Visit: 08/10/2022 Dear Gayla Martinez 2[employer] GRADE TEACH[employer], Let me know if you have any questions or concerns. Sincerely, Lin Cintron Providers: [CC Letter Providers Please see attached lab results The following document(s) were included in the letter: August 10, 2022 13:56:47 EDT - (08/10/2022) Reminder Message Normal [facility] .UA Microscp Aon 08-10-2022 UA Hyline Cast Qual 3-5 Normal Negative [facility] Comment on above: Performed By: #### . Automated Diff #### [place] [address] UA Mucus Present Abnormal Absent [facility] Comment on above: Performed By: #### . Automated Diff #### [place] [address] UA RBC Quant 0 /HPF Normal 0-5 [facility] Comment on above: Performed By: #### . Automated Diff #### [place] [address] UA Squepi Cells Quant 2 /HPF Normal 0-29 [facility] Comment on above: Performed By: #### . Automated Diff #### [place] [address] UA WBC Quant 0 /HPF Normal 0-5 [facility] Comment on above: Performed By: #### . Automated Diff #### [place] [address] .eGFRon 08-10-2022 GFR/1.73 sq M.predicted MDRD (S/P/Bld) [Vol rate/Area] mL/min/{1.73_m2} Normal >=60 [facility] Comment on above: Result Comment: [facility] have implemented the eGFR calculation [...] = years Performed By: #### E GFR ####[address] [address] ABO/Rhon 08-10-2022 ABO/Rh ABO/Rh: O NEG Normal [facility] Comment on above: Performed By: #### A CAPRICEH ####[address] [address] ABSC Autoon 08-10-2022 ABSC Auto Negative Normal [facility] Comment on above: Performed By: #### A SA ####[address] [address] CBC w/ Diffon 08-10-2022 Erythrocyte distribution width (RBC) [Ratio] 13.3 % Normal 11.6-14.8 [facility] Comment on above: Performed By: #### C BC ####[address] [address] Hematocrit (Bld) [Volume fraction] 44.0 % Normal 36.0-46.0 [facility] Comment on above: Performed By: #### C BC ####[address] [address] Hemoglobin (Bld) [Mass/Vol] 15.0 g/dL Normal 12.0-16.0 [facility] Comment on above: Performed By: #### C BC ####[address] [address] MCH (RBC) [Entitic mass] 32.6 pg Normal 27.0-35.0 [facility] Comment on above: Performed By: #### C BC ####[address] [address] MCHC 34.0 % Normal 31.0-37.0 [facility] Comment on above: Performed By: #### C BC ####[address] [address] MCV (RBC) [Entitic vol] 95.8 fL Normal 80.0-100.0 [facility] Comment on above: Performed By: #### C BC ####[address] [address] Platelet 298 x10*3/mcL Normal 150-350 [facility] Comment on above: Performed By: #### C BC ####[address] [address] Platelet mean volume (Bld) [Entitic vol] 10.1 fL Normal 6.7-10.6 [facility] Comment on above: Performed By: #### C BC ####[address] [address] RBC 4.59 x10*6/mcL Normal 3.80-5.20 [facility] Comment on above: Performed By: #### C BC ####[address] [address] WBC 12.9 x10*3/mcL High 4.5-11.0 [facility] Comment on above: Performed By: #### C BC ####[address] [address] CMPon 08-10-2022 Albumin [Mass/Vol] 4.4 g/dL Normal 3.2-4.9 [facility] Comment on above: Performed By: #### . Automated Diff #### [address] [address] Albumin/Globulin [Mass ratio] 1.4 {ratio} Normal 1.1-2.2 [facility] Comment on above: Performed By: #### . Automated Diff #### [address] [address] Alk Phos 75 IU/L Normal 32-91 [facility] Comment on above: Performed By: #### . Automated Diff #### [address] [address] ALT [Catalytic activity/Vol] 14 U/L Normal 14-54 [facility] Comment on above: Performed By: #### . Automated Diff #### [address] [address] Anion gap [Moles/Vol] 13 mmol/L Normal 7-17 [facility] Comment on above: Performed By: #### . Automated Diff #### [address] [address] AST [Catalytic activity/Vol] 20 U/L Normal 15-41 [facility] Comment on above: Performed By: #### . Automated Diff #### [address] [address] Bili Total 0.6 mg/dL Normal 0.3-1.2 [facility] Comment on above: Performed By: #### . Automated Diff #### [address] [address] Calcium [Mass/Vol] 9.3 mg/dL Normal 8.5-10.3 [facility] Comment on above: Performed By: #### . Automated Diff #### [address] [address] Chloride [Moles/Vol] 103 mmol/L Normal 98-110 [facility] Comment on above: Performed By: #### . Automated Diff #### [address] [address] CO2 [Moles/Vol] 24 mmol/L Normal 22-32 [facility] Comment on above: Performed By: #### . Automated Diff #### [address] [address] Creatinine [Mass/Vol] 0.85 mg/dL Normal 0.44-1.03 [facility] Comment on above: Performed By: #### . Automated Diff #### [address] [address] Glucose [Mass/Vol] 108 mg/dL High 70-99 [facility] Comment on above: Performed By: #### . Automated Diff #### [address] [address] Potassium [Moles/Vol] 3.7 mmol/L Normal 3.4-4.8 [facility] Comment on above: Performed By: #### . Automated Diff #### [address] [address] Protein [Mass/Vol] 7.5 g/dL Normal 6.5-8.1 [facility] Comment on above: Performed By: #### . Automated Diff #### [address] [address] Sodium [Moles/Vol] 136 mmol/L Normal 133-142 [facility] Comment on above: Performed By: #### . Automated Diff #### [address] [address] Urea nitrogen [Mass/Vol] 15 mg/dL Normal 8-26 [facility] Comment on above: Performed By: #### . Automated Diff #### [address] [address] Urea nitrogen/Creatinine [Mass ratio] 17.6 mg/mg Normal 10.0-20.0 [facility] Comment on above: Performed By: #### . Automated Diff #### [address] [address] Diff Autoon 08-10-2022 Baso Absolute 0.1 x10*3/mcL Normal 0.0-0.2 [facility] Comment on above: Performed By: #### . Automated Diff #### [address] [address] Basophils/100 WBC (Bld) 0.4 % Normal 0.0-1.5 [facility] Comment on above: Performed By: #### . Automated Diff #### [address] [address] Eos Absolute 0.1 x10*3/mcL Normal 0.0-0.4 [facility] Comment on above: Performed By: #### . Automated Diff #### [address] [address] Eosinophils/100 WBC (Bld) 0.9 % Normal 0.0-5.4 [facility] Comment on above: Performed By: #### . Automated Diff #### [address] [address] Lymph Absolute 3.8 x10*3/mcL Normal 1.0-4.8 [facility] Comment on above: Performed By: #### . Automated Diff #### [address] [address] Lymphocytes/100 WBC (Bld) 29.6 % Normal 27.2-40.8 [facility] Comment on above: Performed By: #### . Automated Diff #### [address] [address] [place] Absolute 0.8 x10*3/mcL Normal 0.1-1.1 [facility] Comment on above: Performed By: #### . Automated Diff #### [address] [address] Monocytes/100 WBC (Bld) 5.9 % Normal 3.7-11.9 [facility] Comment on above: Performed By: #### . Automated Diff #### [address] [address] Neutro Absolute 8.1 x10*3/mcL High 1.8-7.7 [facility] Comment on above: Performed By: #### . Automated Diff #### [place] [id number] Neutro Auto 63.2 % Normal 47.2-70.8 [facility] Comment on above: Performed By: #### . Automated Diff #### [place] [address] HbA1c w/Rflx Fructosamineon 08-10-2022 Glucose [Mass/Vol] 128 mg/dL High 68-114 [facility] Comment on above: Result Comment: Math ematical Calc approx. The mean gluc equivalency of A1c Performed By: #### . Automated Diff #### [place] [address] Hgb A1c 6.1 % A1c High 4.0-5.6 [facility] Comment on above: Result Comment: Refe rence Range: 4.0 - 5.6 % Normal 5.7 - 6.4 % Pre-Diabetes > 6.5 % Diabetes Performed By: #### . Automated Diff #### [address] [address] PTon 08-10-2022 INR Coag (PPP) [Relative time] 1.0 {INR} Normal <=3.5 [facility] Comment on above: Result Comment: INR has no normal range. INR Therapeutic range is: 2.0-3.0 (AF, CVA, TIAs, DVT prophylaxis, acute DVT) 2.5-3.5 ([facility] heart valves, recurrent thrombosis/emboli) Performed By: #### . Automated Diff #### [address] [address] PT Coag (PPP) [Time] 10.7 s Normal 9.3-11.9 [facility] Comment on above: Performed By: #### . Automated Diff #### [address] [address] PTTon 08-10-2022 aPTT Coag (Bld) [Time] 20.9 s Normal 20.6-29.2 [facility] Comment on above: Performed By: #### P TT ####[address] [address] Provider Letteron 08-10-2022 Provider Letter Gayla Martinez CNP [address] [place] [address] Re: Shelleykatty López Date of Visit: 08/10/2022 Dear Gayla Martinez CNP, Let me know if you have any questions or concerns. Sincerely, Lin Cintron Providers: [CC Letter Providers Please see attached lab results The following document(s) were included in the letter: August 10, 2022 13:04:48 EDT - (08/10/2022) Reminder Message Normal [facility] Provider Letter Gayla Martinez CNP [address] [place] [address] Re: Shelley López Date of Visit: 08/10/2022 Dear Gayla Martinez CNP, Let me know if you have any questions or concerns. Sincerely, Lin Cintron Providers: [CC Letter Providers Please see attached ECG results The following document(s) were included in the letter: August 10, 2022 13:05:57 EDT - (08/10/2022) Reminder Message Normal [facility] UA w Culture if Indon 2022 Color (U) Yellow Normal [facility] Comment on above: Performed By: #### U CI #### [place] [id number] Ketones Ql (U) Negative Normal Negative [facility] Comment on above: Performed By: #### U CI #### [address] [address] UA Blood Negative Normal Negative [facility] Comment on above: Performed By: #### U CI #### [place] [id number] UA Clarity Clear Normal [facility] Comment on above: Performed By: #### U CI #### [address] [address] UA Glucose Normal Normal Negative [facility] Comment on above: Performed By: #### U CI #### [address] [address] UA Leukocyte Esterase Negative Normal Negative [facility] Comment on above: Performed By: #### U CI #### [address] [address] UA Nitrite Negative Normal Negative [facility] Comment on above: Performed By: #### U CI #### [address] [address] UA pH 5.0 Normal 4.5 - 7.8 [facility] Comment on above: Performed By: #### U CI #### [address] [address] UA Protein 10 mg/dL Normal Negative [facility] Comment on above: Performed By: #### U CI #### [address] [address] UA Source Clean Catch Normal [facility] Comment on above: Performed By: #### U CI #### [address] [address] UA Spec Grav 1.025 Normal 1.003-1.035 [facility] Comment on above: Performed By: #### U CI #### [address] [address] UA Urobilinogen Normal Normal 0.2 - 1.0 [facility] Comment on above: Performed By: #### U CI #### [address] [address] Urobilinogen (U) [Mass/Vol] Negative Normal Negative [facility] Comment on above: Performed By: #### U CI #### [address] [address] XR Chest 2 Viewson 3 XR Chest [...] Electronically Signed in Other Vendor System) Normal [facility] Neurosurgery Office/Clinic N oteon 07-23-2022 Neurosurgery Office/Clinic Note Chief Complaint Patient is being seen for a back follow up. History of Present Illness The patient is a pleasant 62-year-old right-handed female with history of uvl-rwqealr-ptgxhvnfk diabetes mellitus diagnosed in 2009, chronic nicotine [...] on bony fusion as well as increased jovita-operative risks. The patient notes that she discontinued [...] (provider interpretation): MRI cervical spine 05/29/2022 at [facility] reveals multilevel degenerative disc disease, [...] overt instability. MRI lumbar spine 04/29/2022 at [facility] reveals multilevel degenerative disc disease. [...] there is (more content not included)... Normal [facility] Neurosurgery Office/Clinic Note Chief Complaint Patient [...] Sibling. I (more content not included)... Normal [facility] Office Visiton 07-03-2022 Follow-up visit [id number] James López 1960 F Date Provider Department Center 07/03/2022 INA JONES [facility] Family History Problem Relation Age of Onset Other Mother Heart attack Father Other Father Other Father Other Maternal Grandmother Family Status - Relation Status Age at Mother Father Maternal Grandmother Level of Service:84474 [place] OFFICE/OUTPATIENT ESTABLISHED LOW MDM 20-29 MIN Reason for Visit and Comments: Hypertension [379740] pericardial effusion [Other] Normal [facility] PROF CHEM 8 (BAS METB)on Anion gap [Moles/Vol] 12.9 mmol/L Normal [facility] Comment on above: Performed By: #### C BC #### [facility] [address] [place] [address] [address] Yariel Herrera Calcium [Mass/Vol] 9.0 mg/dL Normal 8.5-10.1 [facility] Comment on above: Performed By: #### C BC #### [facility] [address] [place] [address] [address] Yariel Herrera Chloride [Moles/Vol] 106 mmol/L Normal 98-107 [facility] Comment on above: Performed By: #### C BC #### [facility] [address] [place] [address] [address] Yariel Herrera CO2 [Moles/Vol] 28.3 mmol/L Normal 21.0-32.0 [facility] Comment on above: Performed By: #### C BC #### [facility] [address] [place] [address] Dr. Yariel Herrera Creatinine [Mass/Vol] 0.81 mg/dL Normal 0.55-1.02 [facility] Comment on above: Performed By: #### C BC #### [facility] [address] [place] [address] Dr. Yariel Herrera EGFR-AF [place] >60 Normal >=60 [facility] Comment on above: Performed By: #### C BC #### [facility] [address] [place] [address] Dr. Yariel Herrera EGFR-NON AF [place] >60 Normal >=60 [facility] Comment on above: Performed By: #### C BC #### [facility] [address] [place] [address] Dr. Yariel Herrera Glucose [Mass/Vol] 103 mg/dL Normal 74-106 [facility] Comment on above: Performed By: #### C BC #### [facility] [address] [place] [address] Dr. Yariel Herrera Potassium [Moles/Vol] 4.2 mmol/L Normal 3.5-5.1 [facility] Comment on above: Performed By: #### C BC #### [facility] [address] [place] [address] Dr. Yariel Herrera Sodium [Moles/Vol] 143 mmol/L Normal 136-145 [facility] Comment on above: Performed By: #### C BC #### [facility] [address] [place] [address] Dr. Yariel Herrera Urea nitrogen [Mass/Vol] 9.0 mg/dL Normal 7.0-18.0 [facility] Comment on above: Performed By: #### C BC #### [facility] [address] [place] [address] Dr. Yariel Herrera Urea nitrogen/Creatinine [Mass ratio] 11.1 mg/mg Normal [facility] Comment on above: Performed By: #### C #### [facility] [address] [place] [address] [address] Yariel Herrera 37on 06-10-2022 37 Start lisinopril 2.5 mg daily, Have labs/blood checked in 1 week for kidney function Monitor b/p at home 1-2 times/day and record on a log- bring with her to next visit. If you notice a dry, persistent cough- stop lisinopril and call office please. Normal [facility] Office Visiton 06-10-2022 Follow-up visit [id number] James López 1960 F Date Provider Department Center 06/10/2022 INA JONES [facility] Family History Problem Relation Age of Onset Other Mother Heart attack Father Other Father Other Father Other Maternal Grandmother Family Status - Relation Status Age at Mother Father Maternal Grandmother Level of Service:68818 [place] OFFICE/OUTPATIENT ESTABLISHED MOD MDM 30-39 MIN Normal [facility] ECHOCARDIO M/2D COMPLETEon 0 05-08-2022 ECHOCARDIO M/2D COMPLETE Patient: SHELLEY LÓPEZ. Exam Date: 05/08/2022 : 1960 Gender:F Ordering : CARL WILLIS Admission #: [id number] Family : GAURAV MARTINEZ 2ND GRADE TE[employer] Order #: [id number] CLICK HERE TO VIEW EXAM ECHOCARDIOGRAM REPORT [...] Garzon M.D. on 05/08/2022 at 14:20 Normal [facility] ABHINAV by IFAon 01-08-2022 Antinuclear Antibodies, IFA Negative Normal [facility] Comment on above: Result Comment: Nega tive <1:80 Borderline 1:80 Positive >1:80 ICAP nomenclature: AC-0 For more information about Hep-2 cell patterns use ANApatterns.org, the official website for the International Consensus on Antinuclear Antibody (ABHINAV) Patterns (ICAP). Performed By: #### A NAIFA #### [facility] [address] [place] [address] [address] Yariel Herrera CBC AUTO DIFFon 01-05-2022 BASO # 0.1 103/ul Normal 0.0-0.1 [facility] Comment on above: Performed By: #### C BC #### [facility] [address] [place] [address] [address] Yariel Herrera Basophils/100 WBC (Bld) 0.6 % Normal 0.2-2.0 [facility] Comment on above: Performed By: #### C BC #### [facility] [address] [place] [address] Dr. Yariel Herrera EO # 0.2 103/ul Normal 0.0-0.7 [facility] Comment on above: Performed By: #### C BC #### [facility] [address] [place] [address] Dr. Yariel Herrera Eosinophils/100 WBC (Bld) 1.4 % Normal 0.9-7.0 [facility] Comment on above: Performed By: #### C BC #### [facility] [address] [place] [address] Dr. Yariel Herrera Erythrocyte distribution width (RBC) [Ratio] 13.6 % Normal 11.0-15.0 [facility] Comment on above: Performed By: #### C BC #### [facility] [address] [place] [address] Dr. Yariel Herrera Hematocrit (Bld) [Volume fraction] 46.6 % Normal 36.0-48.0 [facility] Comment on above: Performed By: #### C BC #### [facility] [address] [place] [address] Dr. Yariel Herrera Hemoglobin (Bld) [Mass/Vol] 15.4 g/dL Normal 12.0-16.0 [facility] Comment on above: Performed By: #### C BC #### [facility] [address] [place] [address] Dr. Yariel Herrera IG # 0.03 10e3/ul Normal 0.00-0.03 [facility] Comment on above: Performed By: #### C BC #### [facility] [address] [place] [address] Dr. Yariel Herrera IG % 0.2 % Normal 0.0-0.5 [facility] Comment on above: Performed By: #### C BC #### [facility] [address] [place] [address] Dr. Yariel Herrera LYMPH # 4.2 103/ul Critically high 1.2-3.8 [facility] Comment on above: Performed By: #### C BC #### [facility] [address] [place] [address] [address] Yariel Herrera Lymphocytes/100 WBC (Bld) 31.3 % Normal 20.5-60.0 [facility] Comment on above: Performed By: #### C BC #### [facility] [address] [place] [address] [address] Yariel Herrera MANUAL DIFF REQ NO Normal [facility] Comment on above: Performed By: #### C BC #### [facility] [address] [place] [address] Dr. Yariel Herrera MCH (RBC) [Entitic mass] 31.6 pg Normal 26.7-34.0 [facility] Comment on above: Performed By: #### C BC #### [facility] [address] [place] [address] Dr. Yariel Herrera MCHC (RBC) [Mass/Vol] 33.0 g/dL Normal 29.9-35.2 [facility] Comment on above: Performed By: #### C BC #### [facility] [address] [place] [address] Dr. Yariel Herrera MCV (RBC) [Entitic vol] 95.7 fL Normal 81.0-99.0 [facility] Comment on above: Performed By: #### C BC #### [facility] [address] [place] [address] Dr. Yariel Herrera MONO # 0.9 103/ul Critically high 0.3-0.8 [facility] Comment on above: Performed By: #### C BC #### [facility] [address] [place] [address] Dr. Yariel Herrera Monocytes/100 WBC (Bld) 6.8 % Normal 1.7-12.0 [facility] Comment on above: Performed By: #### C BC #### [facility] [address] [place] [address] Dr. Yariel Herrera NEUT # 8.0 103/ul Critically high 1.4-6.5 [facility] Comment on above: Performed By: #### C BC #### [facility] [address] [place] [address] [address] Yariel Herrera Neutrophils/100 WBC (Bld) 59.7 % Normal 43.0-75.0 [facility] Comment on above: Performed By: #### C BC #### [facility] [address] [place] [address] [address] Yariel Herrera Platelet mean volume (Bld) [Entitic vol] 10.7 fL Normal 9.5-13.5 [facility] Comment on above: Performed By: #### C BC #### [facility] [address] [place] [address] Dr. Yariel Herrera PLT 340 103/ul Normal 150-450 [facility] Comment on above: Performed By: #### C BC #### [facility] [address] [place] [address] Dr. Yariel Herrera RBC 4.87 106/ul Normal 4.20-5.40 [facility] Comment on above: Performed By: #### C BC #### [facility] [address] [place] [address] Dr. Yariel Herrera WBC 13.4 103/ul Critically high 4.0-11.0 [facility] Comment on above: Performed By: #### C BC #### [facility] [address] [place] [address] Dr. Yariel Herrera FREE T4on 01-05-2022 Free T4 [Mass/Vol] 1.06 ng/dL Normal 0.76-1.46 [facility] Comment on above: Performed By: #### C BC #### [facility] [address] [place] [address] Dr. Yariel Herrera PROF 14(COMP METB)on 022 Albumin [Mass/Vol] 3.9 g/dL Normal 3.4-5.0 [facility] Comment on above: Performed By: #### C MP, TSH #### [facility] [address] [place] [address] Dr. Yariel Herrera Albumin/Globulin [Mass ratio] 1.1 {ratio} Normal [facility] Comment on above: Performed By: #### C MP, TSH #### [facility] [address] [address] [address] Yariel Herrera ALP [Catalytic activity/Vol] 99 U/L Normal 46-116 [facility] Comment on above: Performed By: #### C MP, TSH #### [facility] [address] [address] [address] Yariel Herrera ALT [Catalytic activity/Vol] 17 U/L Normal 14-59 [facility] Comment on above: Performed By: #### C MP, TSH #### [facility] [address] [address] [address] Yariel Herrera Anion gap [Moles/Vol] 10.1 mmol/L Normal [facility] Comment on above: Performed By: #### C MP, TSH #### [facility] [address] [address] [address] Yariel Herrera AST [Catalytic activity/Vol] 14 U/L Critically low 15-37 [facility] Comment on above: Performed By: #### C MP, TSH #### [facility] [address] [address] [address] Yariel Herrera Bilirubin [Mass/Vol] 0.3 mg/dL Normal 0.2-1.0 [facility] Comment on above: Performed By: #### C MP, TSH #### [facility] [address] [address] [address] Yariel Herrera Calcium [Mass/Vol] 9.4 mg/dL Normal 8.5-10.1 [facility] Comment on above: Performed By: #### C MP, TSH #### [facility] [address] [address] [address] Yariel Herrera Chloride [Moles/Vol] 103 mmol/L Normal 98-107 [facility] Comment on above: Performed By: #### C MP, TSH #### [facility] [address] [address] [address] Yariel Herrera CO2 [Moles/Vol] 30.9 mmol/L Normal 21.0-32.0 [facility] Comment on above: Performed By: #### C MP, TSH #### [facility] [address] [address] [address] Yariel Herrera Creatinine [Mass/Vol] 0.88 mg/dL Normal 0.55-1.02 [facility] Comment on above: Performed By: #### C MP, TSH #### [facility] [address] [address] [address] Yariel Herrera EGFR-AF COSTA RICAN >60 Normal >=60 [facility] Comment on above: Performed By: #### C MP, TSH #### [facility] [address] [address] [address] Yariel Herrera EGFR-NON AF COSTA RICAN >60 Normal >=60 [facility] Comment on above: Performed By: #### C MP, TSH #### [facility] [address] [address] [address] Yariel Herrera Globulin (S) [Mass/Vol] 3.5 g/dL Normal [facility] Comment on above: Performed By: #### C MP, TSH #### [facility] [address] [address] [address] Yariel Herrera Glucose [Mass/Vol] 117 mg/dL Critically high 74-106 [facility] Comment on above: Performed By: #### C MP, TSH #### [facility] [address] [address] [address] Yariel Herrera Potassium [Moles/Vol] 4.0 mmol/L Normal 3.5-5.1 [facility] Comment on above: Performed By: #### C MP, TSH #### [facility] [address] [address] [address] Yariel Herrera Protein [Mass/Vol] 7.4 g/dL Normal 6.4-8.2 [facility] Comment on above: Performed By: #### C MP, TSH #### [facility] [address] [address] [address] Yariel Herrera Sodium [Moles/Vol] 140 mmol/L Normal 136-145 [facility] Comment on above: Performed By: #### C MP, TSH #### [facility] [address] [address] [address] Yariel Herrera Urea nitrogen [Mass/Vol] 18.0 mg/dL Normal 7.0-18.0 [facility] Comment on above: Performed By: #### C MP, TSH #### [facility] [address] [place] [address] Dr. Yariel Herrera Urea nitrogen/Creatinine [Mass ratio] 20.5 mg/mg Normal [facility] Comment on above: Performed By: #### C MP, TSH #### [facility] [address] [place] [address] Dr. Yariel Herrera TSHon 01-05-2022 TSH 1.380 uIU/mL Normal 0.358-3.740 [facility] Comment on above: Performed By: #### C MP, TSH #### [facility] [address] [place] [address] Dr. Yariel Herrera GLYCOHEMOGLOBIN A1Con 2021 ADA RECOMMENDATION SEE BELOW Normal [facility] Comment on above: Result Comment: ADA RECOMMENDED LIMIT 4.0 - 6.0 ADA THERAPEUTIC TARGET < 7.0 ACTION SUGGESTED > 7.0 Performed By: #### A 1C #### [facility] [address] [place] [address] Dr. Yariel Herrera Glucose [Mass/Vol] 137 mg/dL Normal [facility] Comment on above: Performed By: #### A 1C #### [facility] [address] [place] [address] Dr. Yariel Herrera HbA1c (Bld) [Mass fraction] 6.4 % Critically high 4.5-6.2 [facility] Comment on above: Performed By: #### A 1C #### [facility] [address] [place] [address] Dr. Yariel Herrera ECHOCARDIO M/2D COMPLETEon 0 10-16-2021 ECHOCARDIO M/2D COMPLETE Patient: SHELLEY LÓPEZ Exam Date: 10/16/2021 : 1960 Gender:F Ordering : CARL WILLIS Admission #: [id number] Family : Order #: [id number] CLICK HERE TO VIEW EXAM ECHOCARDIOGRAM REPORT [...] Normal [facility] ECHOCARDIO M/2D COMPLETEon 0 09-16-2021 ECHOCARDIO M/2D COMPLETE Patient: SHELLEY LÓPEZ Exam Date: 09/16/2021 : 1960 Gender:F Ordering : GAURAV MARTINEZ [facility] Admission #: [id number] Family : Order #: [id number] CLICK HERE TO VIEW EXAM ECHOCARDIOGRAM REPORT [...] M.D. on 09/17/2021 at 13:02 Normal [facility] CBC AUTO DIFFon 08-04-2021 BASO # 0.1 103/ul Normal 0.0-0.1 [facility] Comment on above: Performed By: #### C BC #### [facility] [address] [address] [address] Yariel Herrera Basophils/100 WBC (Bld) 0.6 % Normal 0.2-2.0 [facility] Comment on above: Performed By: #### C BC #### [facility] [address] [address] [address] Yariel Herrera EO # 0.1 103/ul Normal 0.0-0.7 [facility] Comment on above: Performed By: #### C BC #### [facility] [address] [place] [address] Dr. Yariel Herrera Eosinophils/100 WBC (Bld) 0.9 % Normal 0.9-7.0 [facility] Comment on above: Performed By: #### C BC #### [facility] [address] [place] [address] Dr. Yariel Herrera Erythrocyte distribution width (RBC) [Ratio] 13.8 % Normal 11.0-15.0 [facility] Comment on above: Performed By: #### C BC #### [facility] [address] [place] [address] Dr. Yariel Herrera Hematocrit (Bld) [Volume fraction] 47.1 % Normal 36.0-48.0 [facility] Comment on above: Performed By: #### C BC #### [facility] [address] [place] [address] Dr. Yariel Herrera Hemoglobin (Bld) [Mass/Vol] 15.2 g/dL Normal 12.0-16.0 [facility] Comment on above: Performed By: #### C BC #### [facility] [address] [place] [address] Dr. Yariel Herrera IG # 0.04 10e3/ul Critically high 0.00-0.03 [facility] Comment on above: Performed By: #### C BC #### [facility] [address] [place] [address] Dr. Yariel Herrera IG % 0.3 % Normal 0.0-0.5 [facility] Comment on above: Performed By: #### C BC #### [facility] [address] [place] [address] Dr. Yariel Herrera LYMPH # 3.7 103/ul Normal 1.2-3.8 [facility] Comment on above: Performed By: #### C BC #### [facility] [address] [place] [address] Dr. Yariel Herrera Lymphocytes/100 WBC (Bld) 30.6 % Normal 20.5-60.0 [facility] Comment on above: Performed By: #### C BC #### [facility] [address] [place] [address] Dr. Yariel Herrera MANUAL DIFF REQ NO Normal [facility] Comment on above: Performed By: #### C BC #### [facility] [address] [place] [address] Dr. Yariel Herrera MCH (RBC) [Entitic mass] 32.0 pg Normal 26.7-34.0 [facility] Comment on above: Performed By: #### C BC #### [facility] [address] [place] [address] Dr. Yariel Herrera MCHC (RBC) [Mass/Vol] 32.3 g/dL Normal 29.9-35.2 [facility] Comment on above: Performed By: #### C BC #### [facility] [address] [place] [address] Dr. Yariel Herrera MCV (RBC) [Entitic vol] 99.2 fL Critically high 81.0-99.0 [facility] Comment on above: Performed By: #### C BC #### [facility] [address] [place] [address] Dr. Yariel Herrera MONO # 0.9 103/ul Critically high 0.3-0.8 [facility] Comment on above: Performed By: #### C BC #### [facility] [address] [place] [address] Dr. Yariel Herrera Monocytes/100 WBC (Bld) 7.4 % Normal 1.7-12.0 [facility] Comment on above: Performed By: #### C BC #### [facility] [address] [place] [address] Dr. Yariel Herrera NEUT # 7.3 103/ul Critically high 1.4-6.5 [facility] Comment on above: Performed By: #### C BC #### [facility] [address] [place] [address] Dr. Yariel Herrera Neutrophils/100 WBC (Bld) 60.2 % Normal 43.0-75.0 [facility] Comment on above: Performed By: #### C BC #### [facility] [address] [place] [address] Dr. Yariel Herrera Platelet mean volume (Bld) [Entitic vol] 11.7 fL Normal 9.5-13.5 [facility] Comment on above: Performed By: #### C BC #### [facility] [address] [place] [address] Dr. Yariel Herrera PLT 330 103/ul Normal 150-450 [facility] Comment on above: Performed By: #### C BC #### [facility] [address] [place] [address] Dr. Yariel Herrera RBC 4.75 106/ul Normal 4.20-5.40 [facility] Comment on above: Performed By: #### C BC #### [facility] [address] [place] [address] Dr. Yariel Herrera WBC 12.1 103/ul Critically high 4.0-11.0 [facility] Comment on above: Performed By: #### C BC #### [facility] [address] [place] [address] Dr. Yariel Herrera FREE T3on 08-04-2021 FREE T3 2.46 pg/mlL Normal 2.18-3.98 [facility] Comment on above: Performed By: #### C BC #### [facility] [address] [place] [address] Dr. Yariel Herrera FREE T4on 08-04-2021 Free T4 [Mass/Vol] 1.08 ng/dL Normal 0.76-1.46 [facility] Comment on above: Performed By: #### F T4 #### [facility] [address] [place] [address] Dr. Yariel Herrera PROF 14(COMP METB)on 022 Albumin [Mass/Vol] 4.2 g/dL Normal 3.4-5.0 [facility] Comment on above: Performed By: #### C BC #### [facility] [address] [place] [address] Dr. Yariel Herrera Albumin/Globulin [Mass ratio] 1.2 {ratio} Normal [facility] Comment on above: Performed By: #### C BC #### [facility] [address] [place] [address] Dr. Yariel Herrera ALP [Catalytic activity/Vol] 87 U/L Normal 46-116 [facility] Comment on above: Performed By: #### C BC #### [facility] [address] [place] [address] Dr. Yariel Herrera ALT [Catalytic activity/Vol] 25 U/L Normal 14-59 [facility] Comment on above: Performed By: #### C BC #### [facility] [address] [place] [address] Dr. Yariel Herrera Anion gap [Moles/Vol] 13.3 mmol/L Normal [facility] Comment on above: Performed By: #### C BC #### [facility] [address] [place] [address] Dr. Yariel Herrera AST [Catalytic activity/Vol] 15 U/L Normal 15-37 [facility] Comment on above: Performed By: #### C BC #### [facility] [address] [place] [address] Dr. Yariel Herrera Bilirubin [Mass/Vol] 0.5 mg/dL Normal 0.2-1.0 [facility] Comment on above: Performed By: #### C BC #### [facility] [address] [place] [address] Dr. Yariel Herrera Calcium [Mass/Vol] 9.6 mg/dL Normal 8.5-10.1 [facility] Comment on above: Performed By: #### C BC #### [facility] [address] [place] [address] Dr. Yariel Herrera Chloride [Moles/Vol] 103 mmol/L Normal 98-107 [facility] Comment on above: Performed By: #### C BC #### [facility] [address] [place] [address] Dr. Yariel Herrera CO2 [Moles/Vol] 28.9 mmol/L Normal 21.0-32.0 [facility] Comment on above: Performed By: #### C BC #### [facility] [address] [place] [address] Dr. Yariel Herrera Creatinine [Mass/Vol] 0.84 mg/dL Normal 0.55-1.02 [facility] Comment on above: Performed By: #### C BC #### [facility] [address] [address] [address] Yariel Herrera EGFR-AF COSTA RICAN >60 Normal >=60 [facility] Comment on above: Performed By: #### C BC #### [facility] [address] [address] [address] Yariel Herrera EGFR-NON AF COSTA RICAN >60 Normal >=60 [facility] Comment on above: Performed By: #### C BC #### [facility] [address] [address] [address] Yariel Herrera Globulin (S) [Mass/Vol] 3.4 g/dL Normal [facility] Comment on above: Performed By: #### C BC #### [facility] [address] [address] [address] Yariel Herrera Glucose [Mass/Vol] 111 mg/dL Critically high 74-106 [facility] Comment on above: Performed By: #### C BC #### [facility] [address] [address] [address] Yariel Herrera Potassium [Moles/Vol] 4.2 mmol/L Normal 3.5-5.1 [facility] Comment on above: Performed By: #### C BC #### [facility] [address] [address] [address] Yariel Herrera Protein [Mass/Vol] 7.6 g/dL Normal 6.4-8.2 [facility] Comment on above: Performed By: #### C BC #### [facility] [address] [address] [address] Yariel Herrera Sodium [Moles/Vol] 141 mmol/L Normal 136-145 [facility] Comment on above: Performed By: #### C BC #### [facility] [address] [address] [address] Yariel Herrera Urea nitrogen [Mass/Vol] 15.0 mg/dL Normal 7.0-18.0 [facility] Comment on above: Performed By: #### C BC #### [facility] [address] [address] [address] Yariel Herrera Urea nitrogen/Creatinine [Mass ratio] 17.9 mg/mg Normal [facility] Comment on above: Performed By: #### C BC #### [facility] [address] [address] [address] Yariel Herrera TSHon 08-04-2021 TSH 1.073 uIU/mL Normal 0.358-3.740 [facility] Comment on above: Performed By: #### C BC #### [facility] [address] [address] [address] Yariel Herrera TSH RANGE SEE BELOW Normal [facility] Comment on above: Result Comment: <0.3 4 UIU/ml HYPERTHYROID 0.34-5.60 UIU/ml EUTHYROID >5.60 UIU/ml HYPOTHYROID Performed By: #### C BC #### [facility] [address] [address] [address] Yariel Herrera Encounters Encounter Date Encounter Type Care Provider Facility Start: 07-05-2023 End: 07-06-2023 ambulatory Lara Mar MD Facility:[facility] Start: 06-14-2023 End: 06-15-2023 ambulatory Lara Mar MD Facility:[facility] Start: 05-25-2023 End: 05-26-2023 ambulatory Physician Unavailable [facility] Start: 05-10-2023 End: 05-11-2023 ambulatory Lara Mar MD Facility:[facility] Start: 05-04-2023 End: 05-05-2023 ambulatory Delfino Snider III, MD Facility:Neurosurgical [facility] Start: 04-26-2023 End: 04-26-2023 ambulatory GAYLA MARTINEZ Not Available Start: 04-08-2023 Clinisync Result Encounter Gayla Martinez THERAPEUTIC MASSAGE TECHNICIAN Work Phone: [facility] External Department Unsolicited Start: 04-08-2023 Clinisync Result Encounter Gayla Martinez THERAPEUTIC MASSAGE TECHNICIAN Work Phone: [facility] External Department Unsolicited Start: 04-07-2023 Refill Gayla Michelle THERAPEUTIC MASSAGE TECHNICIAN Work Phone: [facility] Comment on above: COPD with exacerbati on (CMS/HCC) (Primary Dx) Start: 02-08-2023 End: 02-09-2023 [facility] Facility:Neurosurg ical [facility] Start: 01-25-2023 End: 01-25-2023 ambulatory GAYLA MICHELLE Not Available Start: 01-19-2023 End: 01-19-2023 ambulatory [facility] Start: 12-22-2022 End: 12-23-2022 ambulatory [facility] Facility:Neurosurg [facility] Start: 11-26-2022 End: 11-27-2022 [facility] Start: 11-23-2022 End: 11-24-2022 ambulatory Lara Mar MD Facility:[facility] Start: 10-15-2022 End: 10-16-2022 ambulatory [facility] Facility:Neurosurg [facility] Start: 09-16-2022 End: 09-17-2022 ambulatory [facility] Facility:Neurosurg [facility] Start: 08-21-2022 End: 08-24-2022 Evaluation and management of inpatient Delfino Snider III, MD Facility:[facility] Start: 08-14-2022 End: 08-15-2022 ambulatory Delfino Snider III, MD Facility:[facility] Start: 08-10-2022 End: 08-11-2022 ambulatory Delfino Snider III, MD Facility:[facility] Start: 08-06-2022 ambulatory Delfino Snider III, MD Facility:[facility] Start: 07-23-2022 End: 07-24-2022 ambulatory [facility] Start: 07-03-2022 End: 07-03-2022 ambulatory [facility] Start: 06-17-2022 End: 06-18-2022 ambulatory INA JOHNSON Facility:[facility] Start: 06-10-2022 End: 06-10-2022 ambulatory INA A[facility] Start: 05-08-2022 End: 05-09-2022 ambulatory MOHFINAD ALGHOTHANI Facility:[facility] Start: 01-05-2022 End: 01-06-2022 ambulatory MOHAMAD ALGHOTHANI Facility:[facility] Start: 11-05-2021 End: 11-06-2021 ambulatory 2ND GRADE TEACHER GAYLAKatty STEINBERGKATINAIrina Facility:[facility] Start: 10-16-2021 End: 10-17-2021 ambulatory MOHAMAD DANNIHOTHANI Facility:[facility] Start: 09-16-2021 End: 09-17-2021 ambulatory 2ND GRADE TEACHER GAYLAKatty STEINBERGKATINAZ Facility:[facility] Start: 08-04-2021 End: 08-05-2021 ambulatory 2ND GRADE TEACHER GAYLA JOANNAAbebeKATINAIrina Facility:[facility] Procedures Date Procedure Procedure Detail Performing Clinician Start: 04-08-2023 [facility] Gayla Michelle THERAPEUTIC MASSAGE TECHNICIAN Work Phone: Start: 12-03-2022 Mammography Gayla Sara jerome THERAPEUTIC MASSAGE TECHNICIAN Work Phone: Start: 04-20-2013 Colonoscopy Gayla Hobbsramya jerome THERAPEUTIC MASSAGE TECHNICIAN Work Phone: Plan of Treatment Date Care Activity Detail Author Start: 09-08-2026 Screening for malign ant neoplasm of colon [facility] Start: 12-04-2023 Screening for malign ant neoplasm of breast Mammogram [facility] Start: 09-30-2023 ambulatory Ambulatory Facility:[facility] Start: 08-22-2023 Influenza vaccination Influenza Vacc ine (#1) [facility] Comment on above: Postponed from 10/23 (Other Medical Reasons) Start: 07-24-2023 Screening for malign ant neoplasm of cervix Cervical Cancer Screening [facility] Comment on above: Postponed from 02/03 (Other Medical Reasons) Start: 05-30-2023 Urine screening for protein Diabetes: Urine Protein Screening [facility] Start: 04-26-2023 Glaucoma screening Diabetes: R etinopathy Screening [facility] Comment on above: Postponed from 02/03 (Other Medical Reasons) Start: 04-26-2023 End: 04-26-2023 Patient encounter procedure 04/26/2023 9:00 AM EST Office Visit [facility] [address] [place] [address] Gayla Martinez, ROSI [address] [place] [address] [facility] Start: 03-05-2023 Hemoglobin A1c measurement Diabetes: Hemoglobin A1C [facility] Start: 02-03-1990 Screening for malign ant neoplasm of cervix HPV/Cotest [facility] Start: 02-03-1981 Screening for malign ant neoplasm of cervix Pap Smear [facility] Start: 1960 Screening for malign ant neoplasm of colon [facility] Immunizations Immunization Date Immunization Notes Care Provider Fa [facility] 01-06-2022 influenza virus vacc ine, unspecified formulation Gayla Martinez NP Work Phone: [facility] Payers Date Payer Category Payer Private Health Insurance 2022 Medicaid [employer] [place] [id number] 2022-Present [address] [place] [address] [id number] 1960 Unknown [id number] 2..840.1.044936.3.579.2. 593 1960 Unknown [id number] 2..840.1.821156.3.579.2. 593 1960 Unknown [id number] 2.16.840.1.785147.3.579.2. 593 1960 Unknown [id number] 2.16.840.1.605470.3.579.2. 593 1960 Unknown [id number] 2.16.840.1.624719.3.579.2. 593 1960 Unknown [id number] 2.16.840.1.017902.3.579.2. 593 1960 Unknown [id number] 2.16.840.1.667039.3.579.2. 593 1960 Unknown [id number] 2.16.840.1.865970.3.579.2. 1259 1960 Unknown [id number] 2.16.840.1.284939.3.579.2. 1259 1960 Unknown [id number] 2.16.840.1.676460.3.579.2. 196 1960 Unknown [id number] 2.16.840.1.372892.3.579.2. 196 1960 Unknown [id number] 2.16.840.1.198056.3.579.2. 196 1960 Unknown [id number] 2.16.840.1.774868.3.579.2. 196 1960 Unknown [id number] 2.16.840.1.317124.3.579.2. 196 1960 Unknown [id number] 2.16.840.1.037562.3.579.2. 196 1960 Unknown [id number] 2.16.840.1.674167.3.579.2. 196 1960 Unknown [id number] 2.16.840.1.112931.3.579.2. 196 1960 Unknown [id number] 2.16.840.1.067559.3.579.2. 196 1960 Unknown [id number] 2.16.840.1.181783.3.579.2. 196 1960 Unknown [id number] 2.16.840.1.571922.3.579.2. 196 1960 Unknown [id number] 2.16.840.1.450173.3.579.2. 196 1960 Unknown [id number] 2.16.840.1.604419.3.579.2. 1960 Unknown [id number] 2.16.840.1.922877.3.579.2. 196 1960 Unknown [id number] 2.16.840.1.274201.3.579.2. 1960 Unknown [id number] 2.16.840.1.451899.3.579.2. 1960 Unknown [id number] 2.16.840.1.027119.3.579.2. 1960 Unknown [id number] 2.16.840.1.009958.3.579.2. 196 1959 Unknown [id number] 1959 Unknown [id number] Social History Date Type Detail Facility Start: 01-25-2023 Tobacco smoking stat [facility] Smokes tobacco daily [facility] History of tobacco use Cigarette Smoker [facility] Start: 01-25-2023 Cigarettes smoked cu rrent (pack per day) - Reported 0.5 [facility] Start: 01-25-2023 Tobacco use and exposure Smoke less tobacco non-user [facility] Start: 02-08-2023 Alcohol intake Lifetime non-d mariaa (finding) [facility] Start: 01-25-2023 Tobacco use panel [facility] Start: 1960 Sex Assigned At Not on file [facility] Medical Equipment Procedure Code Equipment Code Equipment Original Text Equi pment Identifier Dates 1 Device Daily as needed. [id number] Clinical Notes 06-10-2022 to 01-19-2023 Note Date & Type Note Facility 01-19-2023 Note Cardiovascular Medic in[facility] SUBJECTIVE Chief Complaint Patient presents with Follow-up Hypertension Shelley López is a 62 y.o. female here for follow-up. HPI PMHx: HTN, pericardial effusion, HLD She denies any cardiac concerns today. She has back problems. She is 5 months s/p surgery and she is still recovering. She is following with pain management at [facility]. She is not currently checking her [...] needed. Dante Hand NP [facility] Cardi[facility] 01-19-2023 Note Patient here for 6 m [...] All other systems reviewed and are negative. 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 Lumbar radiculopathy Ordered: Discharge Patient 4. Nicotine dependence Ordered: Discharge Patient Orders: ascorbic acid, 1 tabs, Oral, q8hr, # 270 tabs, 0 Refill(s), Pharmacy: [facility] #[id number] cephalexin, 500 mg, Oral, Cap, q0vl-Djbjwnnv Times for 12 doses, First Dose: 08/24/22 12:00:00 EDT, Stop Date: 08/27/22 11:59:00 EDT, Dispense From Location: [address], Prophylaxis- Pre/Post-Op, 08/24/22 7:40:00 EDT cephalexin, 1 caps, Oral, n6se-Ozfcakgm Times, X 3 days, # 12 caps, 0 Refill(s), 08/27/22 7:47:00 EDT, Pharmacy: [facility] #[id number] docusate, 1 caps, Oral, BID, # 14 caps, 0 Refill(s), Pharmacy: [facility] #[id number] ferrous sulfate, 1 tabs, Oral, BID, # 60 tabs, 0 Refill(s), Pharmacy: [facility] #[id number] magnesium hydroxide, 15 mL, Ora (more content not included)... [facility] 07-03-2022 Note No concerning symptoms [facility] 07-03-2022 Note Hypertension is well controlled 120/84 Reviewed b/p log and overall her b/p is controlled with some outliers of high and low b/p. Renal function was normal s/p starting lisinopril [facility] 07-03-2022 Note Patient here for 1 m [...] All other systems reviewed and are negative. [facility] 07-03-2022 Note [facility] CARDIOLOGY PROGR ESS NOTE HPI: Shelley López is a 62 y.o. female here [...] effusion No concerning symptoms RTC 6 months [facility] 06-10-2022 Note F/U with PCP [facility] 06-10-2022 Note Hypertension is 145/ 99 uncontrolled Will start lisinopril 2.5 mg daily BMP in 1 week Start monitoring b/p at home and record on a log, RTC 1 month D/W pt about side effects of 1st dose low b/p and dry persistent cough [facility] 06-10-2022 Note Recent echo with not ed trivial effusion. No recent illness or any concerning symptoms [facility] 06-10-2022 Note [facility] CARDIOLOGY PROGR ESS NOTE HPI: Shelley López is a 62 y.o. female here for routine f/U for pericardial effusion. At the time, patient denied any cardiac complaints. She denied any chest pain or shortness of breath. She denies any cardiac history. No history of [place], PCI, CHF. Repeat echocardiogram demonstrated a trivial [...] with PCP RTC 1 month for re-evaluation [facility] 06-10-2022 Note Patient here for 6 m o follow up pericardial effusion. Had echo in April 2022. Denies chest pain and SOB. Review of Systems Musculoskeletal: Positive for back pain. All other systems reviewed and are negative. [facility] Evaluation note Diagnosis COPD with exacerbation (CMS/HCC)- [...] CREATED AUTHOR 06/21/2022 [facility] DATE CREATED AUTHOR AUTHOR'S ORGANIZ ATION 03/20/2023 [facility] DATE CREATED AUTHOR AUTHOR'S ORGANIZ ATION 04/26/2023 [facility] DATE CREATED AUTHOR AUTHOR'S ORGANIZ ATION 07/10/2023 [facility] Care Teams (unrecognized sec tion and content) Brick Pointer Relationship Specialty Start Date End Date Jim Deleon MD [address] [place] [id number] PCP - General Family Medicine 09/18/22 Gayla Martinez NP [address] [place] [phone] Referring Physician Nurse Practitioner 09/18/22 Brick Pointer Relationship Specialty Start Date End Date Jim Deleon MD [address] [place] [phone] PCP - General Family Medicine 09/18/22 Gayla Martinez NP [address] [place] [phone] Referring Physician Nurse Practitioner 09/18/22 FOR RECORDS [...] BE BASED ON THE PRIMARY CLINICAL RECORDS. [facility]. provides no warranty or guarantee of the accuracy or completeness of information in this document.
--- NOTE | 2023-07-14 10:12 | PM.CN ---
Consult Note: HPI Data of Consult Patient: known to practice within the last 3 years Requesting Physician: Gwendolyn Salamanca NP Primary Care Provider: Gayla Martinez NP Consult Narrative Reason for consult: f/u Narrative: Stephan muniz pleasant 62 year old female presents for evaluation and management of chronic back pain. Today pain 4/10 in right low back and right hip, describes as a sharp burning pain. Patient has a hx of L3,4,5 fusion. Patient utilizing external bone stimulator. Patient has found mild benefit to current medication regimen, no side effects. Patient continues to have moderate to severe pain that is severely impacting functional ability, DIONNA 46%. Patient has completed aquatherapy without improvement. Recently underwent Bilateral L5-S1 transforaminal epidural steroid injection with 80% improvement in low back and radicular pain. Recent right SIJ injection provided 85% pain relief for 2 days, no ongoing improvement. most recently bilateral L5-S1 MBB #1 with 50% improvement immediately after and following. cc:: CC: Gwendolyn Salamanca NP Review of Systems ROS Status of ROS 10 or more systems reviewed and unremarkable except as noted in history and below Musculoskeletal Reports: back pain and extremity pain [facility] Medical History (Updated 06/23/23 @ 13:14 by Gwendolyn Salamanca NP) Low back pain ?M54.50 - Low back pain, unspecified (ICD-10) Osteoarthritis ?M19.90 - Unspecified osteoarthritis, unspecified site (ICD-10) Diabetes ?E11.9 - Type 2 diabetes mellitus without complications (ICD-10) COPD (chronic obstructive pulmonary disease) ?J44.9 - Chronic obstructive pulmonary disease, unspecified (ICD-10) Smoker ?F17.200 - Nicotine dependence, unspecified, uncomplicated (ICD-10) Hypertension ?I10 - Essential (primary) hypertension (ICD-10) Surgical History S/P surgical removal of pilonidal cyst ?Z98.890 - Other specified postprocedural states (ICD-10) H/O lumbosacral spine surgery ?Z98.890 - Other specified postprocedural states (ICD-10) Meds Home Medications and Allergies Home Medications ?Medication ?Instructions ?Recorded ?Confirmed ?Type amitriptyline 10 mg tablet 25 mg PO DAILY 11/23/22 06/14/23 History atorvastatin 20 mg tablet 20 mg PO DAILY 11/23/22 06/14/23 History ferrous sulfate 325 mg (65 mg 325 mg PO DAILY 11/23/22 06/14/23 History iron) tablet (FeroSul) fluticasone fur. 100 mcg-umeclid 1 inh inhalation DAILY 11/23/22 06/14/23 History 62.5 mcg-vilant 25 mcg inhalat.powder (Trelegy Ellipta) lisinopril 2.5 mg tablet 2.5 mg PO DAILY 11/23/22 06/14/23 History metformin 500 mg tablet 500 mg PO BID 11/23/22 06/14/23 History tizanidine 4 mg capsule 4 mg PO DAILY PRN muscle spasticity 11/23/22 06/14/23 History meloxicam 15 mg tablet 15 mg PO DAILY 04/15/23 06/14/23 History naloxone 4 mg/actuation nasal 4 mg intranasal Q3M PRN opioid 05/19/23 06/14/23 Rx spray (Narcan) overdose #2 ea tramadol 50 mg tablet 50 mg PO BID PRN pain #60 tabs 05/19/23 06/14/23 Rx Allergies Allergy/AdvReac Type Severity Reaction Status Date / Time No Known Drug Allergies Allergy Verified 11/23/22 14:05 Exam Constitutional Documenting provider has reviewed patient's vital signs: yes Common normals: no apparent distress, oriented x3, healthy appearing, alert and well nourished General appearance: cooperative HENME Common normals: normocephalic, hearing grossly normal bilaterally and moist oral mucous membranes Head and scalp: normocephalic Eye Common normals: PERRL Pupil: PERRL Neck & C-Spine Common normals: full ROM General: normal visual inspection Chest Common normals: inspection of chest normal Respiratory Common normals: normal respiratory effort, no retractions and no use of accessory muscles Back & Pelvis Lumbar spine/lower back: ROM limited, pain with ROM and straight leg raise negative bilaterally Sacroiliac joints: SI joint(s) abnormal Other: facet loading bilateral intermittent NC right SIJ pain over PSIS, positive DECLAN, FADIR, thigh thrust, gaenslens Extremity Common normals: normal to inspection and full ROM Neuro Common normals: oriented x3, CN's II-XII intact bilaterally, moves all extremities, no focal motor deficits, no sensory deficits noted and deep tendon reflexes 2+ bilaterally Sensorium/orientation: alert Gait (neuro): antalgic and assistive device used cane Motor exam: strength 5/5 throughout and no movement abnormalities noted Psych Common normals: mental status grossly normal, thought process normal, cooperative, affect normal, speech normal and activity/motor behavior normal Speech: normal speech Thought process: normal thought process Results Additional Findings Additional findings: If on a controlled substance or opioids, I have checked an [place]ARRS report on this patient and there are no aberrancies noted in the prescribing history.??If on a controlled substance or opioid a drug screen was completed and reviewed within the last year, and if there has not been a drug screen completed we ordered one today to monitor higher risk, state monitored pain medication use. As part of providing excellent, safe, comprehensive care, the following was completed at our patient's visit: 1. A medication reconciliation and review to ensure accurate knowledge of current/active medications, including asking our patients to inform us about any dzhs-kzg-cvciboa medications or herbal remedies/nutritional supplements/alternative remedies. 2. A review to specifically ensure our patients have had annual screening for screening for depression, screening for tobacco use, and screening for unhealthy alcohol use. For concerning screenings had a discussion with the patient, provided patient education, and recommended follow-up with primary care provider when appropriate. If patient noted with a risk of falling, they received education on strength, gait, and balance training to prevent future risk of falling. Assessment and Plan Assessment and Plan (1) Failed back syndrome: (2) Lumbar spondylosis: (3) Sacroiliitis: (4) Chronic prescription opiate use: Assessment and Plan: I feel these medications are improving the patient's quality of life and allow them to tolerate activities of daily living as well as participate in recreational activity.? The patient does not report intolerable side effects. The patient is NOT opioid naive and non-pharmacologic and non-opioid treatment has failed to significantly relieve the patient's pain and improve functionality. The patient has a diagnosis that is related to a somatic or visceral pain etiology. ? ?? I reviewed with the patient the potential risks and side effects with the use of? opioid medications including but not limited to respiratory depression,? sedation, and even . I verified the patient has access to naloxone should? these effects occur. I advised the patient to avoid the use of any other? sedation substances including alcohol, THC, and benzodiazepines while? taking opioid medications due to the risk of compounding side effects and? detrimental outcomes. I reviewed the [employer], pain treatment agreement, urine? drug screen, and opioid start talking forms. The patient was advised to let? their family know they had Naloxone in case they would need to administer? the medication.? ?? A drug screen was completed within the last year, and no aberrancies were noted regarding their use of controlled substances. The patient understands they are subject to the terms and conditions of the pain contract that they have signed. ? ?? I have checked an OARRS report on this patient today and there are no aberrancies noted in the prescribing history.? (5) Muscle spasm: (6) Lumbar stenosis with neurogenic claudication: Plan Spinal cord stimulator trial discussed as patient has failed all above mentioned therapies and injection options. Education provided. psychiatric consult paperwork provided update lumbar spine MRI without contrast continue PT and HEP as tolerated continue current medication regimen, tolerating well without side effects reporting mild functional improvement start zynex hybrid lumbosacral brace PRN, not to be used consistently or for extended periods of time. declining surgical intervention
== END 2023-07-14 09:42 | disposition home or self-care (01) ==
PROVIDERS: PCP Nurse Practitioner; Visit Provider Nurse Practitioner
DX: M96.1 Postlaminectomy syndrome, not elsewhere classified (principal); M47.816 Spondylosis without myelopathy or radiculopathy, lumbar region; M46.1 Sacroiliitis, not elsewhere classified; Z79.891 Long term (current) use of opiate analgesic; M62.838 Other muscle spasm; M48.062 Spinal stenosis, lumbar region with neurogenic claudication
CPT/HCPCS: G0463

== ENCOUNTER 2023-07-26 09:10 | Outpatient (OUT) | payer OTHER, SELFPAY ==
[2023-07-26 10:05] LABS: Bilirubin Urine NEGATIVE (NEGATIVE); Blood Urine NEGATIVE (NEGATIVE); Clarity Urine CLEAR (CLEAR); Color Urine LT. YELLOW (YELLOW); Glucose Urine UA NEGATIVE (NEGATIVE); Ketones Urine NEGATIVE (NEGATIVE); Leukocyte Esterase Urine NEGATIVE (NEGATIVE); Nitrite Urine NEGATIVE (NEGATIVE); Protein Urine NEGATIVE (NEG/TRACE); Urobilinogen Urine 0.2 EU/dL (0.2-1.0)
[2023-07-26 10:10] LABS: Urine Microscopic Indicated NO
[2023-07-26 10:16] LABS: Basophils Absolute Auto 0.1 10^3/uL (0.0-0.1); Basophils Percent Auto 0.6 % (0.2-2.0); Eosinophils Absolute Auto 0.1 10^3/uL (0.0-0.7); Eosinophils Percent Auto 1.1 % (0.9-7.0); Hematocrit 45.8 % (36.0-48.0); Hemoglobin 15.4 g/dL (12.0-16.0); Immature Granulocytes Abs Auto 0.02 10^3/uL (0.00-0.03); Immature Granulocytes Pct Auto 0.2 % (0.0-0.5); Lymphocytes Absolute Auto 3.6 10^3/uL (1.2-3.8); Lymphocytes Percent Auto 32.5 % (20.5-60.0); Mean Corpuscular HGB Conc 33.6 g/dL (29.9-35.2); Mean Corpuscular Hemoglobin 32.8 pg (26.7-34.0); Mean Corpuscular Volume 97.7 fL (81.0-99.0); Mean Platelet Volume 10.3 fL (9.5-13.5); Monocytes Absolute Auto 0.9 10^3/uL (0.3-0.8); Neutrophils Absolute Auto 6.4 10^3/uL (1.4-6.5); Neutrophils Percent Auto 57.6 % (43.0-75.0); Platelet Count 414 10^3/uL (150-450); Red Blood Count 4.69 10^6/uL (4.20-5.40); Red Cell Distribution Width 13.8 % (11.0-15.0); White Blood Count 11.2 10^3/uL (4.0-11.0)
[2023-07-26 10:39] LABS: Creatinine Urine Random 95.43 mg/dL (20.00-300.00); Microalbum Creatinine Ratio Ur 13.6 mg/g (0.0-29.9); Microalbumin Urine Random <1.3 mg/dL (<=30.0)
[2023-07-26 10:54] LABS: Alanine Aminotransferase 26 U/L (14-59); Albumin Globulin Ratio 1.3; Albumin Level 4.3 g/dL (3.4-5.0); Alkaline Phosphatase 96 U/L (46-116); Anion Gap 13.3; Aspartate Amino Transferase 19 U/L (15-37); BUN Creatinine Ratio 19.8; Bilirubin Total 0.4 mg/dL (0.2-1.0); Calcium 9.9 mg/dL (8.5-10.1); Carbon Dioxide 30.2 mmol/L (21.0-32.0); Chloride 98 mmol/L (98-107); Chol HDL Ratio 2.2; Cholesterol 164 mg/dL (<=200); Estimated GFR (African America >60 (>=60); Estimated GFR (Non-African Ame >60 (>=60); Globulin 3.4 g/dL; Glucose 116 mg/dL (74-106); HDL Cholesterol 73 mg/dL (40-60); Potassium 4.5 mmol/L (3.5-5.1); Sodium 137 mmol/L (136-145); Total Protein 7.7 g/dL (6.4-8.2); Triglycerides 107 mg/dL (<=150); VLDL CHOLESTEROL 21.4 mg/dL
[2023-07-26 14:01] LABS: Estimated Average Glucose 126 mg/dL
== END 2023-07-26 09:11 | disposition home or self-care (01) ==
LOC: LAB 09:14
PROVIDERS: PCP Nurse Practitioner; Visit Provider Nurse Practitioner
DX: K22.70 Barrett's esophagus without dysplasia (principal); K20.90 Esophagitis, unspecified without bleeding; E78.2 Mixed hyperlipidemia; E11.9 Type 2 diabetes mellitus without complications; F17.200 Nicotine dependence, unspecified, uncomplicated
CPT/HCPCS: 36415; 80053; 80061; 81003; 82043; 82570; 83036; 85025

== ENCOUNTER 2023-08-03 08:22 | Outpatient (OUT) | payer OTHER, SELFPAY ==
--- NOTE | 2023-08-03 08:24 | MR_ITS ---
[address] [address] Patient Name: SHELLEY VAUGHN MRN: [facility]:[id number] date: 1960 Sex: F Assigned Patient Location: MRI Current Patient Location: MRI Accession/Order Number: [id number] Exam Date: 08/03/2023 09:30 Report Date: 08/03/2023 11:22 At the request of: AIDE MADERA Procedure: MR lumbar spine wo/w con EXAMINATION: MR lumbar spine wo/w con HISTORY: Post Laminectomy Syndrome COMPARISON: No relevant comparison available. TECHNIQUE: Axial T1 and T2; Sagittal T1, T2, and STIR sequences. Images were performed before and after the administration of intravenous Dotarem contrast. FINDINGS: For the purposes of numbering, sagittal T2 image # 7 extends from the T11 vertebral body superiorly to the S2-S3 level inferiorly. PARASPINAL AREA: Normal with no visible mass. BONES: 6 mm anterolisthesis of L4 in relation to L5. L3-L5 posterior decompression with areas of fluid signal in the surgical bed, bilateral transpedicular fusion with resultant susceptibility. Area of signal abnormality in the L2 vertebral body, nonspecific possibly hemangioma CORD/CAUDA EQUINA: Normal caliber, contour, and signal intensity. No abnormal postcontrast enhancement is identified DISC LEVELS: 12-L1: No significant disc/facet abnormality, spinal stenosis, or foraminal stenosis. L1-L2: Moderate disc space narrowing and disc desiccation. Posterior broad-based disc/osteophyte complex narrows the central canal to 9 mm in AP dimension axial image #9. No foraminal stenosis L2-L3: Disc collapse with endplate sclerosis. Broad-based posterior disc herniation the protrusion type extending posteriorly up to 4.8 mm with inferior subligamentous component measuring up to 5.3 mm. This results in moderate narrowing of the central canal. Facet osteoarthropathy. Mild right foraminal stenosis L3-L4: Early degenerative disc disease is present without focal protrusion or neural impingement. L4-L5: 6 mm anterolisthesis of L4 in relation to L5. Disc desiccation. No disc bulge or herniation. No central canal stenosis. Mild bilateral foraminal stenosis related to the spondylolisthesis L5-S1: Moderate disc space narrowing and disc desiccation. Posterior broad-based disc protrusion. Bilateral facet osteoarthropathy. No central canal stenosis. Moderate bilateral foraminal stenosis MR/MR lumbar spine wo/w con IMPRESSION: Posterior decompression and transpedicular fusion L3-L5 Moderate degenerative changes most significant at L5-S1 where there is moderate bilateral foraminal stenosis No abnormal postcontrast enhancement Electronically authenticated by: JOAN MEANS Date: 08/03/2023 11:22
--- OUTSIDE RECORDS SUMMARY | 2023-08-03 08:27 | XMS_ITS ---
Patient Summarization (C-CDA 2.1 CCD) Created on: August 03, 2023 STEPHAN LÓPEZ : 1960 Sex: Female Author Organization Sample organization Care Team Providers Care Methods Study Analyst Name Role Phone ALGHOTHANI, MOHAMAD Attending Unavailable AICHHOLZ, ORTHOPEDICS PEDIATRIC PHYSICIAN GAYLA Primary Care Unavailable ALGHOTHANI, MOHAMAD Consulting Unavailable ALGHOTHANI, MOHAMAD Admitting Unavailable AICHHOLZ, ORTHOPEDICS PEDIATRIC PHYSICIAN GAYLA Primary Care Unavailable AICHHOLZ, ORTHOPEDICS PEDIATRIC PHYSICIAN GAYLA Admitting Unavailable AICHHOLZ, ORTHOPEDICS PEDIATRIC PHYSICIAN GAYLA Attending Unavailable AICHHOLZ, ORTHOPEDICS PEDIATRIC PHYSICIAN GAYLA Consulting Unavailable ALGHOTHANI, MOHAMAD Attending Unavailable AICHHOLZ, ORTHOPEDICS PEDIATRIC PHYSICIAN GAYLA Primary Care Unavailable ALGHOTHANI, MOHAMAD Consulting Unavailable ALGHOTHANI, MOHAMAD Admitting Unavailable ALGHOTHANI, MOHAMAD Attending Unavailable AICHHOLZ, ORTHOPEDICS PEDIATRIC PHYSICIAN GAYLA Primary Care Unavailable ALGHOTHANI, MOHAMAD Consulting Unavailable ALGHOTHANI, MOHAMAD Admitting Unavailable ALEX, INA Attending Unavailable ALEX, INA Admitting Unavailable ALEX, INA Consulting Unavailable AICHHOLZ, ORTHOPEDICS PEDIATRIC PHYSICIAN GAYLA Primary Care Unavailable AICHHOLZ, ORTHOPEDICS PEDIATRIC PHYSICIAN GAYLA Admitting Unavailable AICHHOLZ, ORTHOPEDICS PEDIATRIC PHYSICIAN GAYLA Attending Unavailable AICHHOLZ, ORTHOPEDICS PEDIATRIC PHYSICIAN GAYLA Consulting Unavailable AICHHOLZ, ORTHOPEDICS PEDIATRIC PHYSICIAN GAYLA Primary Care Unavailable AICHHOLZ, ORTHOPEDICS PEDIATRIC PHYSICIAN GAYLA Admitting Unavailable AICHHOLZ, ORTHOPEDICS PEDIATRIC PHYSICIAN GAYLA Attending Unavailable AICHHOLZ, ORTHOPEDICS PEDIATRIC PHYSICIAN GAYLA Consulting Unavailable AICHHOLZ, ORTHOPEDICS PEDIATRIC PHYSICIAN GAYLA Primary Care Unavailable ALEX, INA Attending Unavailable ALEX, INA Attending Unavailable DANTE HAND Attending Unavailable Aichholz DENTAL CERAMIST ASSISTANT, Gayla Unavailable Pancho BOWIE, Jim Primary Care Provider [phone] Dasha Waggoner PA-C Attending Unavailab rose Snider III, MD, Delfino [...] Tylor KAMARA MD, Delfino Freeman Attending U navailable Isabela BOWIE, Lara Amos Attending Unavailable Isabela BOWIE, Lara Amos Attending Unavailable Isabela BOWIE, Lara Amos Attending Unavailable Isabela BOWIE, Lara Amos Attending Unavailable Edilson PA-C, Dasha Pedro Attending Unavailab le AICHHOLIrina, GAYLA Attending Unavailable MICHELLE, GAYLA Attending Unavailable MICHELLE, GAYLA Attending Unavailable Allergies Allergy Classification Reported Allergen(s) Allergy Type Date of Onset Reaction(s) Facility (3 sources) pregabalin; Translations: [PREGABALIN] Drug Allergy 3 [facility] Repository (1 source) No Known Medication Allergies; Translations: [No Known Medication Allergies] Propensity to adverse reactions to drug (disorder) [facility] Repository Encounters Encounter Date Encounter Type Care Provider Facility Start: 07-27-2023 End: 07-27-2023 ambulatory GAYLA MARTINEZ Not Available Start: 07-05-2023 End: 07-06-2023 ambulatory Lara Mar MD Facility: [facility] Start: 06-14-2023 End: 06-15-2023 ambulatory Lara Mar MD Facility:[facility] Start: 05-25-2023 End: 05-26-2023 ambulatory Physician Unavailable [facility] Start: 05-10-2023 End: 05-11-2023 ambulatory Lara Mar MD Facility:[facility] Start: 05-04-2023 End: 05-05-2023 ambulatory Delfino Snider III, MD Facility[facility] Start: 04-26-2023 End: 04-26-2023 ambulatory GAYLA MICHELLE Not Available Start: 04-08-2023 Clinisync Result Encounter Gayla Michelle DENTAL CERAMIST ASSISTANT Work Phone: [facility] Department Unsolicited Start: 04-08-2023 Clinisync Result Encounter Gayla Michelle DENTAL CERAMIST ASSISTANT Work Phone: [facility] External [facility] Unsolicited Start: 04-07-2023 Refill Gayla Michelle DENTAL CERAMIST ASSISTANT Work Phone: [facility] Comment on above: COPD with exacerbati on (CMS/HCC) (Primary Dx) Start: 02-08-2023 End: 02-09-2023 ambulatory Dasha HODGES-C [facility] Start: 01-25-2023 End: 01-25-2023 ambulatory GAYLA AICHHOLZ Not Available Start: 01-19-2023 End: 01-19-2023 ambulatory [facility] Start: 12-22-2022 End: 12-23-2022 ambulatory Dasha Waggoner PA-C [facility] Start: 11-26-2022 End: 11-27-2022 ambulatory Dashaeyad Waggoner PA-C [facility] Start: 11-23-2022 End: 11-24-2022 ambulatory Lara Mar MD Facility:[facility] Start: 10-15-2022 End: 10-16-2022 ambulatory Dasha HODGES-C [facility] Start: 09-16-2022 End: 09-17-2022 ambulatory Dasha HODGES-C [facility] Start: 08-21-2022 End: 08-24-2022 Evaluation and management of inpatient Delfino Snider III, MD Facility:[facility] Start: 08-14-2022 End: 08-15-2022 ambulatory Delfino Snider III, MD Facility:[facility] Start: 08-10-2022 End: 08-11-2022 ambulatory Delfino Snider III, MD Facility:[facility] Start: 08-06-2022 ambulatory Delfino Snider III, MD Facility:[facility] Start: 07-23-2022 End: 07-24-2022 ambulatory Dasha Waggoner PA-C [facility] Start: 07-03-2022 End: 07-03-2022 ambulatory [facility] Start: 06-17-2022 End: 06-18-2022 ambulatory INA LINKS Facility:[facility] Start: 06-10-2022 End: 06-10-2022 ambulatory [facility] Start: 05-08-2022 End: 05-09-2022 ambulatory MOHAMAD ALGHOTHANI Facility:[facility] Start: 01-05-2022 End: 01-06-2022 ambulatory MOHAMAD ALGHOTHANI Facility:[facility] Start: 11-05-2021 End: 11-06-2021 ambulatory ORTHOPEDICS PEDIATRIC PHYSICIAN GAYLA JOANNAAbebeDOUGLAS Facility:[facility] Start: 10-16-2021 End: 10-17-2021 ambulatory MOHAMAD ALGHOTHANI Facility:[facility] Start: 09-16-2021 End: 09-17-2021 ambulatory ORTHOPEDICS PEDIATRIC PHYSICIAN GAYLA JOANNAAbebeDOUGLAS Facility:[facility] Start: 08-04-2021 End: 08-05-2021 ambulatory ORTHOPEDICS PEDIATRIC PHYSICIAN GAYLA JOANNAAbebeDOUGLAS Facility:[facility] Medical Equipment Procedure Code Equipment Code Equipment Original Text Equi pment Identifier Dates 1 Device Daily as needed. [id number] Immunizations Immunization Date Immunization Notes Care Provider Fa cility 01-06-2022 influenza virus vacc ine, unspecified formulation Gayla Martinez DENTAL CERAMIST ASSISTANT Work Phone: [facility] Medications Current Medications Medication Drug Class(es) Dates [...] oral solution (2 sources) alpha-Adrenergic Agonist, Uncompetitive I-yphwhe-F-aspartat e Receptor Antagonist, Sigma-1 Agonist Start: 04-07-2023 [...] if needed for muscle spasms. 0 Active Payers Date Payer Category Payer Private Health Insurance 2022 Medicaid [employer]ICA[place] [id number] 2022-Present [address] [place] [address] [id number] 1960 Unknown [id number] 2.16.840.1.909982.3.579.2. 593 1960 Unknown [id number] 2.16.840.1.142910.3.579.2. 593 1960 Unknown [id number] 2.16.840.1.758614.3.579.2. 593 1960 Unknown [id number] 2.16.840.1.023926.3.579.2. 593 1960 Unknown [id number] 2.16.840.1.865907.3.579.2. 593 1960 Unknown [id number] 2.16.840.1.625834.3.579.2. 593 1960 Unknown [id number] 2.16.840.1.444471.3.579.2. 593 1960 Unknown [id number] 2.16.840.1.898260.3.579.2. 196 1960 Unknown [id number] 2.16.840.1.275903.3.579.2. 196 1960 Unknown [id number] 2.16.840.1.749048.3.579.2. 196 1960 Unknown [id number] 2.16.840.1.883025.3.579.2. 196 1960 Unknown [id number] 2.16.840.1.244820.3.579.2. 196 1960 Unknown [id number] 2.16.840.1.988904.3.579.2. 196 1960 Unknown [id number] 2.16.840.1.543775.3.579.2. 196 1960 Unknown [id number] 2.16.840.1.652821.3.579.2. 196 1960 Unknown [id number] 2.16.840.1.368773.3.579.2. 196 1960 Unknown [id number] 2.16.840.1.176912.3.579.2. 1960 Unknown [id number] 2.16.840.1.591092.3.579.2. 1960 Unknown [id number] 2.16.840.1.886061.3.579.2. 1960 Unknown [id number] 2.16.840.1.380892.3.579.2. 1960 Unknown [id number] 2.16.840.1.176096.3.579.2. 196 1960 Unknown [id number] 2.16.840.1.844876.3.579.2. 1960 Unknown [id number] 2.16.840.1.727943.3.579.2. 196 1960 Unknown [id number] 2.16.840.1.233459.3.579.2. 196 1960 Unknown [id number] 2.16.840.1.073474.3.579.2. 196 1960 Unknown [id number] 2.16.840.1.949708.3.579.2. 9 1960 Unknown [id number] 2.16.840.1.477057.3.579.2. 9 1960 Unknown [id number] 2.16.840.1.923928.3.579.2. 9 1959 Unknown [id number] 1959 Unknown [id number] Plan of Treatment Date Care Activity Detail Author Start: 09-08-2026 Screening for malign ant neoplasm of colon [facility] Start: 12-04-2023 Screening for malign ant neoplasm of breast Mammogram [facility] Start: 09-30-2023 ambulatory Ambulatory Facility:Yair null [facility] Start: 08-22-2023 Influenza vaccination Influenza Vacc ine (#1) [facility] Comment on above: Postponed from 10/23 (Other Medical Reasons) Start: 07-24-2023 Screening for malign ant neoplasm of cervix Cervical Cancer Screening [facility] Comment on above: Postponed from 02/03 (Other Medical Reasons) Start: 05-30-2023 Urine screening for protein Diabetes: Urine Protein Screening [facility] Start: 04-26-2023 Glaucoma screening Diabetes: R etinopathy Screening [facility] Comment on above: Postponed from 02/03 (Other Medical Reasons) Start: 04-26-2023 End: 04-26-2023 Patient encounter procedure 04/26/2023 9:00 AM EST Office Visit [facility] [address] [place] [address] Gayla Martinez, ROSI [address] [place] [address] [facility] Start: 03-05-2023 Hemoglobin A1c measurement Diabetes: Hemoglobin A1C [facility] Start: 02-03-1990 Screening for malign ant neoplasm of cervix HPV/Cotest [facility] Start: 02-03-1981 Screening for malign ant neoplasm of cervix Pap Smear [facility] Start: 1960 Screening for malign ant neoplasm of colon [facility] Problems Active Problems Problem Classification Problem Date [...] Translations: [Other pericardial effusion (noninflammatory)] Onset: 07-03-2022 Procedures Date Procedure Procedure Detail Performing Clinician Start: 04-08-2023 [facility] INFLUENZA A AND B AG Gayla Motleydouglas DENTAL CERAMIST ASSISTANT Work Phone: Start: 12-03-2022 Mammography Gayla terrellirina DENTAL CERAMIST ASSISTANT Work Phone: Start: 04-20-2013 Colonoscopy Gayla Ruiz nidhiirina DENTAL CERAMIST ASSISTANT Work Phone: Results Test Name Value Interpretation Reference Range Facility Neurosurgery Office/Clinic N oteon 05-25-2023 Neurosurgery Office/Clinic Note Chief Complaint 6-8 [...] L5-S1 transforaminal SVITLANA 05/10/2023 by [facility] pain management which did give her approximately 2 to 3 weeks of incomplete benefit. She is planned for bilateral sacroiliac joint injections in the near future. The patient has discontinued her LSO brace that continues her electromagnetic stimulator 8 hours/day. Recent imaging (provider interpretation): Lumbar flexion/extension x-rays 04/30/2023 at [place] reveals straightening of lumbar lordosis. Evidence of L3-5 posterior spinal fusion with instrumentation and interbody fusion L4-5. No evidence of hardware fracture or pullout. Patient found to have degenerative disc disease L2-3 and L5-S1. There is slight retrolisthesis L2-3 as well as unchanged anterior listhesis at her surgerized L4-5 segment. No evidence of dynamic instability. CT lumbar spine 02/03/2023 at [facility] reveals evidence of L3-5 posterior spinal [...] prior imaging. CT lumbar spine 10/14/2022 at [facility] reveals evidence of L3-5 decompression and [...] which c (more content not included)... Normal [facility] INFLUENZA A AND B AGon 0 04-08-2023 INFLUENZA VIRUS A ANTIGEN Positive Abnormal [facility] Comment on above: NOTE: Live attenuate d influenza vaccine viruses can cause a positive result for a rapid influenza diagnostic test if administered up to 7 days prior to rapid testing. INFLUENZA VIRUS B ANTIGEN Negative [facility] Comment on above: Negative for Flu B p rotein antigen. Infection due to Flu B cannot be ruled out. Flu B antigen in the sample may be below the detection limit of the test. Interpretation and review of laboratory results Abnormal [facility] CLINISYNC [facility] 36on 03-19-2023 36 Please let her know her labs showed normal kidney function. Can continue lisinopril. Thank you [facility] Telephoneon 03-19-2023 Telephone [id number] James López 1960 F Date Provider Department Center 03/19/[address] Family History Problem Relation Age of Onset Other Mother Heart attack Father Other Father Other Father Other Maternal Grandmother Family Status - Relation Status Age at Mother Father Maternal Grandmother [facility] Neurosurgery Office/Clinic Yair pittman 02-08-2023 Neurosurgery Office/Clinic Note Chief Complaint Back [...] as provided by pain management ([facility] pain management) only as needed and has not yet returned to NSAID medication. She continues to utilize nicotine and understands the deleterious effects of nicotine on her overall health and bony arthrodesis. Recent imaging (provider interpretation): CT lumbar spine 02/03/2023 at [facility] reveals evidence of L3-5 posterior spinal [...] prior imaging. CT lumbar spine 10/14/2022 at [facility] reveals evidence of L3-5 decompression and [...] bladder inc (more content not included)... Normal [facility] Office Visiton 01-19-2023 Follow-up visit [id number] James López Lin 1960 F Date Provider Department Center 01/19/2023 Ese-DANTE HAND ROXY [facility] Family History Problem Relation Age of Onset Other Mother Heart attack Father Other Father Other Father Other Maternal Grandmother Family Status - Relation Status Age at Mother Father Maternal Grandmother Level of Service:35422 OK OFFICE/OUTPATIENT ESTABLISHED LOW MDM 20-29 MIN Reason for Visit and Comments: Follow-up [631218] Hypertension [472597] [facility] Neurosurgery Office/Clinic N oteon 12-22-2022 Neurosurgery Office/Clinic [...] per week. She follows with [facility] pain management which is a transition from [facility] pain management group. She continues [...] prior imaging. CT lumbar spine 10/14/2022 at [facility] reveals evidence of L3-5 decompression and [...] demonstrates normal respiratory effort She presents in [facility] lock brace with proper fit and alignment. This was removed at the time of today's visit for incision evaluation. Lumbosacral incision appears well-healed and without erythema, edema, drainage or warmth. She notes mild tenderness (more content not included)... Normal [facility] Neurosurgery Office/Clinic N oteon 11-26-2022 Neurosurgery [...] she recently transferred pain management care from [facility] to [facility]. Per the patient, they eventually would like her to initiate hot water physical therapy though only after receiving clearance from this office. Recent imaging (provider interpretation): CT lumbar spine 10/14/2022 at [facility] reveals evidence of L3-5 decompression and [...] demonstrates normal respiratory effort She presents in [facility] lock brace with proper fit and alignment. [...] lower extre (more content not included)... Normal [facility] Neurosurgery Office/Clinic N zain 10-15-2022 Neurosurgery [...] (provider interpretation): CT lumbar spine 10/14/2022 at [facility] reveals evidence of L3-5 decompression and [...] Lumbar w/o (more content not included)... Normal [facility] Provider Letteron 10-15-2022 Provider Letter [facility] [address], [phone] Date: 10/15/2022 17:05:57 To Whom It May Concern: This is to verify that Rene Stephan Ceballos was under our care on 10/15/2022 16:00:00. Stated patient underwent an L3-5 posterior spinal fusion on 08/21/22 with instrumentation utilizing Medtronic osteogrip titanium screws. If you have any questions or concerns please call our office at [phone]. 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 [...] manner are appropriate. She presents in [facility] lock brace which was removed at the [...] No redness (more content not included)... Normal [facility] Inpatient Clinical Summaryon 08-24-2022 Inpatient Clinical Summary [facility] [address] [place] [address] [address] Clinical Summary Person Information Name: Stephan López Age: 62 Years : 1960 Sex: Female PCP: Marital Status: Phone: PCP: Race: White Ethnicity: Not or Language: Danish Visit Id: Visit Reason: Speciality: Acuity: Enc Type: Inpatient Med Service: Surgery Arrival: 08/21/2022 06:28:12 Discharge: Dispo Type: Address: [address] [place] [phone] Diagnosis: 1:Lumbar stenosis with neurogenic claudication; 2:Spondylolisthesis, [...] range between ( 27.2 and 40.8 ) [place] Auto: 8.9 % -- Normal range between [...] range between ( 36.0 and 46.0 ) [place] Absolute: 1.8 x10 MCH: 31.8 pg -- [...] [facility] New Medications [id number], [address], [place] [id number], [phone] ascorbic acid (ascorbic acid 500 mg oral [...] magnesium hydroxi (more content not included)... Normal [facility] Neurosurgery Progress Noteon 08-24-2022 Neurosurgery Progress [...] Date: 08/27/22 7:59:00 EDT, Dispense From Location: Zfclnek-KIW-5V, Prophylaxis- Pre/Post-Op, 08/24/22 7:40:00 EDT scopolamine, 1 patches, TD, Film-ER, q72hr, First Dose: 08/24/22 7:40:00 EDT, [facility] 08/24/[facility] 7:40:00 EDT traMADol, 100 mg, Oral, Tab, q4hr, PRN severe pain [7-10 on pain scale], First Dose: 08/23/22 9:04:00 EDT, Dispense From Location: Ogevzdk-VJC-0X, 08/23/22 9:04:00 EDT traMADol, 50 mg, Oral, Tab, q4hr, PRN moderate pain [4-6 on pain scale], First Dose: 08/23/22 9:04:00 EDT, Dispense From Location: Vqglhoc-XMO-2U, 08/23/22 9:04:00 EDT Surgical Drains Subjective: Patient [...] MD, Delfino Freeman 08/24/22 07:45 EDT Normal [facility] Neurosurgery Progress Noteon 08-23-2022 Neurosurgery Progress [...] Dose: 08/23/22 9:04:00 EDT, Dispense From Location: Toaznwn-RZM-8U, 08/23/22 9:04:00 EDT traMADol, 50 mg, Oral, Tab, q4hr, PRN moderate pain [4-6 on pain scale], First Dose: 08/23/22 9:04:00 EDT, Dispense From Location: Dobhalz-WHX-8Y, 08/23/22 9:04:00 EDT Surgical Drains Subjective: Patient [...] Snider III, MD 08/23/22 09:14 EDT Normal [facility] POC Glucose Randomon 023 Glucose [Mass/Vol] 114 mg/dL High 70-99 [facility] Comment on above: Performed By: #### . Automated Diff #### [facility] [address] [place] [address] Glucose [Mass/Vol] 114 mg/dL High 70-99 [facility] Comment on above: Performed By: #### C [id number] ####[address] [place] [address] .eGFRon 08-22-2022 GFR/1.73 sq M.predicted MDRD (S/P/Bld) [Vol rate/Area] mL/min/{1.73_m2} Normal >=60 [facility] Comment on above: Result Comment: [facility] have implemented the eGFR calculation approach [...] = years Performed By: #### E GFR ####[address] [place] [address] Basic Metabolic Profileon Anion gap [Moles/Vol] 12 mmol/L Normal 7-17 [facility] Comment on above: Performed By: #### . Automated Diff #### [address] [place] [address] Calcium [Mass/Vol] 8.5 mg/dL Normal 8.5-10.3 [facility] Comment on above: Performed By: #### . Automated Diff #### [address] [address] Chloride [Moles/Vol] 101 mmol/L Normal 98-110 [facility] Comment on above: Performed By: #### . Automated Diff #### [address] [address] CO2 [Moles/Vol] 25 mmol/L Normal 22-32 [facility] Comment on above: Performed By: #### . Automated Diff #### [address] [address] Creatinine [Mass/Vol] 0.76 mg/dL Normal 0.44-1.03 [facility] Comment on above: Performed By: #### . Automated Diff #### [address] [address] Glucose [Mass/Vol] 116 mg/dL High 70-99 [facility] Comment on above: Performed By: #### . Automated Diff #### [address] [address] Potassium [Moles/Vol] 4.2 mmol/L Normal 3.4-4.8 [facility] Comment on above: Performed By: #### . Automated Diff #### [address] [address] Sodium [Moles/Vol] 134 mmol/L Normal 133-142 [facility] Comment on above: Performed By: #### . Automated Diff #### [address] [address] Urea nitrogen [Mass/Vol] 10 mg/dL Normal 8-26 [facility] Comment on above: Performed By: #### . Automated Diff #### [address] [address] Urea nitrogen/Creatinine [Mass ratio] 13.2 mg/mg Normal 10.0-20.0 [facility] Comment on above: Performed By: #### . Automated Diff #### [address] [address] CBC w/ Diffon 08-22-2022 Erythrocyte distribution width (RBC) [Ratio] 13.5 % Normal 11.6-14.8 [facility] Comment on above: Performed By: #### C BC ####[address] [address] Hematocrit (Bld) [Volume fraction] 36.3 % Normal 36.0-46.0 [facility] Comment on above: Performed By: #### C BC ####[address] [address] Hemoglobin (Bld) [Mass/Vol] 12.2 g/dL Normal 12.0-16.0 [facility] Comment on above: Performed By: #### C BC ####[address] [address] MCH (RBC) [Entitic mass] 31.8 pg Normal 27.0-35.0 [facility] Comment on above: Performed By: #### C BC ####[address] [address] MCHC 33.5 % Normal 31.0-37.0 [facility] Comment on above: Performed By: #### C BC ####[address] [address] MCV (RBC) [Entitic vol] 94.9 fL Normal 80.0-100.0 [facility] Comment on above: Performed By: #### C BC ####[address] [address] Platelet 282 x10*3/mcL Normal 150-450 [facility] Comment on above: Performed By: #### C BC ####[address] [address] Platelet mean volume (Bld) [Entitic vol] 9.0 fL Normal 6.7-10.6 [facility] Comment on above: Performed By: #### C BC ####[address] [address] RBC 3.82 x10*6/mcL Normal 3.80-5.20 [facility] Comment on above: Performed By: #### C BC ####[address] [address] WBC 20.4 x10*3/mcL High 4.5-11.0 [facility] Comment on above: Performed By: #### C BC ####[address] [address] Diff Autoon 08-22-2022 Baso Absolute 0.1 x10*3/mcL Normal 0.0-0.2 [facility] Comment on above: Performed By: #### . Automated Diff ####[address] [address] Basophils/100 WBC (Bld) 0.4 % Normal 0.0-1.5 [facility] Comment on above: Performed By: #### . Automated Diff ####[address] [address] Eos Absolute 0.0 x10*3/mcL Normal 0.0-0.4 [facility] Comment on above: Performed By: #### . Automated Diff ####[address] [address] Eosinophils/100 WBC (Bld) 0.1 % Normal 0.0-5.4 [facility] Comment on above: Performed By: #### . Automated Diff ####[address] [address] Lymph Absolute 2.4 x10*3/mcL Normal 1.0-4.8 [facility] Comment on above: Performed By: #### . Automated Diff ####[address] [address] Lymphocytes/100 WBC (Bld) 11.6 % Low 27.2-40.8 [facility] Comment on above: Performed By: #### . Automated Diff ####[address] [address] [place] Absolute 1.8 x10*3/mcL High 0.1-1.1 [facility] [facility] Comment on above: Performed By: #### . Automated Diff ####[place] [id number] Monocytes/100 WBC (Bld) 8.9 % Normal 3.7-11.9 [facility] Comment on above: Performed By: #### . Automated Diff ####[place] [address] Neutro Absolute 16.1 x10*3/mcL High 1.8-7.7 [facility] Comment on above: Performed By: #### . Automated Diff ####[place] [address] Neutro Auto 79.0 % High 47.2-70.8 [facility] Comment on above: Performed By: #### . Automated Diff ####[place] [id number] Neurosurgery Progress Noteon 08-22-2022 Neurosurgery Progress Note [...] mg, Oral, qAM baclofen, 5 mg, Oral, d2ll-Ztrtaejk Times bisacodyl, 10 mg= 1 supp, Rectal, [...] Dose: 08/21/22 17:00:00 EDT, Dispense From Location: [address], 08/21/22 16:37:00 EDT baclofen, 5 mg, Oral, Tab, x7nz-Mvazhvse Times, First Dose: 08/21/22 22:00:00 EDT, Dispense From Location: [address], 08/21/22 16:37:00 EDT bisacodyl, 10 mg, Rectal, Supp, Once, First Dose: 08/22/22 6:59:00 EDT, Stop Date: 08/22/22 6:59:00 EDT, Dispense From Location: [address], 08/22/22 6:59:00 EDT bisacodyl, 10 mg, Rectal, Supp, Daily, PRN constipation, First Dose: 08/22/22 9:00:00 EDT, Dispense From Location: [address], 08/22/22 9:00:00 EDT ceFAZolin, 2 g, IV Piggyback, Soln-IV, q8hr, infuse over 30 minutes, First Dose: 08/21/22 20:00:00 EDT, Dispense From Location: [address], Prophylaxis- Pre/Post-Op, 08/21/22 20:00:00 EDT docusate, 100 mg, Oral, Cap, BID, First Dose: 08/21/22 21:00:00 EDT, Dispense From Location: [address], 08/21/22 16:37:00 EDT ferrous sulfate, 325 mg, Oral, Tab, BID, First Dose: 08/21/22 21:00:00 EDT, Dispense From Location: [address], 08/21/22 16:37:00 EDT hydrALAZINE, 10 mg, IV Push, Injection, q10min, PRN hypertension, First Dose: 08/21/22 16:37:00 EDT, Dispense From Location: [address], 08/21/22 16:37:00 EDT labetalol, 10 mg, IV Push, Injection, q10min, PRN hypertension, First Dose: 08/21/22 16:37:00 EDT, Dispense From Location: [address], 08/21/22 16:37:00 EDT magnesium hydroxide, 30 mL, Oral, Susp, TID, First Dose: 08/21/22 22:00:00 EDT, Dispense From Location: [address], 08/21/22 16:37:00 EDT multivitamin with minerals, 1 tabs, Oral, Tab, Daily, First Dose: 08/22/22 9:00:00 EDT, Dispense From Location: [address], 08/21/22 16:37:00 EDT ondansetron, 4 mg, IV Push, Injection, q6hr, PRN nausea/vomiting, First Dose: 08/21/22 15:08:00 EDT, Dispense From Location: [facility], 08/21/22 15:08:00 EDT oxyCODONE-acetaminophe n, 1 tabs, Oral, Tab, q4hr, PRN moderate pain [4-6 on pain scale], First Dose: 08/21/22 16:37:00 EDT, Dispense From Location: [facility], 08/21/22 16:37:00 EDT oxyCODONE-acetaminophe n, 2 tabs, Oral, Tab, q4hr, PRN severe pain [7-10 on pain scale], First Dose: 08/21/22 16:37:00 EDT, Dispense From Location: [address], 08/21/22 16:37:00 EDT sodium chloride, 10 mL, IV Push, Injection, As Indicated, PRN flush, First Dose: 08/21/22 16:37:00 EDT, Dispense From Location: [address], 08/21/22 16:37:00 EDT ADA Diet Ambulate Basic Metabolic Profile Blood Glucose Monitoring POC Cinch Loc Brace (EXOS Brace) Consult to Cylinder Filler Incentive Spirometry Nursing to Encourage Intake and Output Mechanical Compression Device Neurological Checks Notify Provider Occupational Therapy Evaluation and Treatment Inpatient Oxygen Therapy Peripheral IV Insert and Maintain Physical Therapy Evaluation and Treatment Inpatient Pulse Oximetry Continuous Pulse Oximetry Continuous Resuscitation Status Straight Catheter Straight (more content not included)... Normal [facility] POC Glucose Randomon 023 Glucose [Mass/Vol] 120 mg/dL High 70-99 [facility] Comment on above: Performed By: #### C [id number] ####[address] [address] Glucose [Mass/Vol] 124 mg/dL High 70-99 [facility] Comment on above: Performed By: #### . Automated Diff #### [address] [address] Neurosurgery Progress Noteon 08-21-2022 Neurosurgery Progress Note [...] ceFAZolin, 2 g= 50 mL, IV Piggyback, Fence Builder Dilaudid, 0.5 mg= 0.5 mL, IV Push, q15min, PRN diphenhydrAMINE, 25 mg= 0.5 mL, IV Push, q6hr, PRN fentaNYL, 50 mcg= 1 mL, IV Push, q5min, PRN fentaNYL BARREL ENDSHAKER ADJUSTER, 300 mcg= 30 mL, IV BARREL ENDSHAKER ADJUSTER, [id number] Times, PRN lisinopril, 2.5 mg, Oral, Daily [...] Dose: 08/21/22 9:00:00 EDT, Dispense From Location: [facility], 08/21/22 6:35:00 EDT ceFAZolin, 2 g, IV Piggyback, Soln-IV, Fence Builder, infuse over 30 minutes, First Dose: 08/21/22 0:15:00 EDT, Dispense From Location: [facility], Prophylaxis- Pre/Post-Op, 08/21/22 0:15:00 EDT diphenhydrAMINE, 25 mg, IV Push, Injection, q6hr, PRN itching, First Dose: 08/21/22 15:08:00 EDT, Dispense From Location: [facility], 08/21/22 15:08:00 EDT fentaNYL, 300 30 mcg mL, IV BARREL ENDSHAKER ADJUSTER, Loading Dose (mcg): 25, BARREL ENDSHAKER ADJUSTER Dose (mcg): 10, Lockout Interval (min): 8, Continuous Dose (mcg/hr): 25, 4-Hour Limit (mcg): 300, 2.5 mL/hr, pain PRN, Start Date: 08/21/22 15:08:00 EDT, Dispense From [facility], [facility]... lisinopril, 2.5 mg, Oral, Tab, Daily, First Dose: 08/21/22 9:00:00 EDT, Dispense From Location: [facility], 08/21/22 6:35:00 EDT metFORMIN, 500 mg, Oral, Tab, BID, First Dose: 08/21/22 9:00:00 EDT, Dispense From Location: [facility], 08/21/22 6:35:00 EDT nalbuphine, 2.5 mg, IV Push, Injection, q6hr, PRN refractory itching, First Dose: 08/21/22 15:08:00 EDT, Dispense From Location: [facility], 08/21/22 15:08:00 EDT omeprazole, 40 mg, Oral, Cap-DR, Daily, First Dose: 08/21/22 7:00:00 EDT, Dispense From Location: [facility], 08/21/22 6:35:00 EDT ondansetron, 4 mg, IV Push, Injection, q6hr, PRN nausea/vomiting, First Dose: 08/21/22 15:08:00 EDT, Dispense From Location: [facility], 08/21/22 15:08:00 EDT pregabalin, 100 mg, Oral, Cap, BID, First Dose: 08/21/22 9:00:00 EDT, [facility] 6:35:00 EDT Admit to Inpatient Communication [...] Snider III, MD 08/21/22 15:45 EDT Normal [facility] Operative Reporton 3 Operative Report Indication [...] transpedicular fixation L3, L4, L5 bilaterally with [employer] Osteogrip screws 6.5 mm in diameter; resection of juxta articular facet cyst left L4-5; computer-assisted hardware placement using [employer] station and [employer] O-arm Surgeon(s) Delfino Snider III, MD (Surgeon - Primary) Senior Clinical Consultant Dasha Waggoner PA-C (Barrel Rifler Hook) Anesthesia General Opal BOWIE, Maulik Padron (Computational Geneticist) Koko Eugene (Provider) Estimated Blood Loss 300.0 [...] is secured. Patient is carefully turned onto [facility] operating room table and head and [...] spinous pro (more content not included)... Normal [facility] POC Glucose Randomon 023 Glucose [Mass/Vol] 179 mg/dL High 70-99 [facility] Comment on above: Performed By: #### C [id number] ####[address] [address] Glucose [Mass/Vol] 206 mg/dL High 70-99 [facility] Comment on above: Performed By: #### C [id number] ####[address] [address] Glucose [Mass/Vol] 152 mg/dL High 70-99 [facility] Comment on above: Performed By: #### . Automated Diff #### [address] [address] XR Spine Lumbosacral 4 Views + in [...] Electronically Signed in Other Vendor System) Normal [facility] Provider Letteron 08-11-2022 Provider Letter Gayla Martinez CNP [address] [place] [address] Re: Stephan Rene Date of Visit: 08/10/2022 Dear Gayla Martinez ORTHOPEDICS PEDIATRIC PHYSICIAN, Let me know if you have any questions or concerns. Sincerely, Lin Cintron Providers: [CC Letter Providers Please see attached lab results The following document(s) were included in the letter: August 10, 2022 13:56:47 EDT - (08/10/2022) Reminder Message Normal [facility] .UA Microscp Aon 08-10-2022 UA Hyline Cast Qual 3-5 Normal Negative [facility] Comment on above: Performed By: #### . Automated Diff #### [address] [address] UA Mucus Present Abnormal Absent [facility] Comment on above: Performed By: #### . Automated Diff #### [place] [address]340 UA RBC Quant 0 /HPF Normal 0-5 [facility] Comment on above: Performed By: #### . Automated Diff #### [address] [address] UA Squepi Cells Quant 2 /HPF Normal 0-29 [facility] Comment on above: Performed By: #### . Automated Diff #### [place] [address]340 UA WBC Quant 0 /HPF Normal 0-5 [facility] Comment on above: Performed By: #### . Automated Diff #### [facility] [address] [place] [address] .eGFRon 08-10-2022 GFR/1.73 sq M.predicted MDRD (S/P/Bld) [Vol rate/Area] mL/min/{1.73_m2} Normal >=60 [facility] Comment on above: Result Comment: [facility] have implemented the eGFR calculation approach [...] = years Performed By: #### E GFR ####[address] [address] ABO/Rhon 08-10-2022 ABO/Rh ABO/Rh: O NEG Normal [facility] Comment on above: Performed By: #### A BORH ####[address] [address] ABSC Autoon 08-10-2022 ABSC Auto Negative Normal [facility] Comment on above: Performed By: #### A SA ####[address] [address] CBC w/ Diffon 08-10-2022 Erythrocyte distribution width (RBC) [Ratio] 13.3 % Normal 11.6-14.8 [facility] Comment on above: Performed By: #### C BC ####[address] [address] Hematocrit (Bld) [Volume fraction] 44.0 % Normal 36.0-46.0 [facility] Comment on above: Performed By: #### C BC ####[address] [address] Hemoglobin (Bld) [Mass/Vol] 15.0 g/dL Normal 12.0-16.0 [facility] Comment on above: Performed By: #### C BC ####[address] [address] MCH (RBC) [Entitic mass] 32.6 pg Normal 27.0-35.0 [facility] Comment on above: Performed By: #### C BC ####[address] [address] MCHC 34.0 % Normal 31.0-37.0 [facility] Comment on above: Performed By: #### C BC ####[address] [address] MCV (RBC) [Entitic vol] 95.8 fL Normal 80.0-100.0 [facility] Comment on above: Performed By: #### C BC ####[address] [address] Platelet 298 x10*3/mcL Normal 150-350 [facility] Comment on above: Performed By: #### C BC ####[address] [address] Platelet mean volume (Bld) [Entitic vol] 10.1 fL Normal 6.7-10.6 [facility] Comment on above: Performed By: #### C BC ####[address] [address] RBC 4.59 x10*6/mcL Normal 3.80-5.20 [facility] Comment on above: Performed By: #### C BC ####[address] [address] WBC 12.9 x10*3/mcL High 4.5-11.0 [facility] Comment on above: Performed By: #### C BC ####[address] [address] CMPon 08-10-2022 Albumin [Mass/Vol] 4.4 g/dL Normal 3.2-4.9 [facility] Comment on above: Performed By: #### . Automated Diff #### [address] [address] Albumin/Globulin [Mass ratio] 1.4 {ratio} Normal 1.1-2.2 [facility] Comment on above: Performed By: #### . Automated Diff #### [address] [address] Alk Phos 75 IU/L Normal 32-91 [facility] Comment on above: Performed By: #### . Automated Diff #### [address] [address] ALT [Catalytic activity/Vol] 14 U/L Normal 14-54 [facility] Comment on above: Performed By: #### . Automated Diff #### [address] [address] Anion gap [Moles/Vol] 13 mmol/L Normal 7-17 [facility] Comment on above: Performed By: #### . Automated Diff #### [address] [address] AST [Catalytic activity/Vol] 20 U/L Normal 15-41 [facility] Comment on above: Performed By: #### . Automated Diff #### [address] [address] Bili Total 0.6 mg/dL Normal 0.3-1.2 [facility] Comment on above: Performed By: #### . Automated Diff #### [address] [address] Calcium [Mass/Vol] 9.3 mg/dL Normal 8.5-10.3 [facility] Comment on above: Performed By: #### . Automated Diff #### [address] [address] Chloride [Moles/Vol] 103 mmol/L Normal 98-110 [facility] Comment on above: Performed By: #### . Automated Diff #### [address] [address] CO2 [Moles/Vol] 24 mmol/L Normal 22-32 [facility] Comment on above: Performed By: #### . Automated Diff #### [address] [address] Creatinine [Mass/Vol] 0.85 mg/dL Normal 0.44-1.03 [facility] Comment on above: Performed By: #### . Automated Diff #### [address] [address] Glucose [Mass/Vol] 108 mg/dL High 70-99 [facility] Comment on above: Performed By: #### . Automated Diff #### [address] [address] Potassium [Moles/Vol] 3.7 mmol/L Normal 3.4-4.8 [facility] Comment on above: Performed By: #### . Automated Diff #### [address] [address] Protein [Mass/Vol] 7.5 g/dL Normal 6.5-8.1 [facility] Comment on above: Performed By: #### . Automated Diff #### [address] [address] Sodium [Moles/Vol] 136 mmol/L Normal 133-142 [facility] Comment on above: Performed By: #### . Automated Diff #### [address] [address] Urea nitrogen [Mass/Vol] 15 mg/dL Normal 8-26 [facility] Comment on above: Performed By: #### . Automated Diff #### [address] [address] Urea nitrogen/Creatinine [Mass ratio] 17.6 mg/mg Normal 10.0-20.0 [facility] Comment on above: Performed By: #### . Automated Diff #### [address] [address] Diff Autoon 08-10-2022 Baso Absolute 0.1 x10*3/mcL Normal 0.0-0.2 [facility] Comment on above: Performed By: #### . Automated Diff #### [address] [address] Basophils/100 WBC (Bld) 0.4 % Normal 0.0-1.5 [facility] Comment on above: Performed By: #### . Automated Diff #### [address] [address] Eos Absolute 0.1 x10*3/mcL Normal 0.0-0.4 [facility] Comment on above: Performed By: #### . Automated Diff #### [address] [address] Eosinophils/100 WBC (Bld) 0.9 % Normal 0.0-5.4 [facility] Comment on above: Performed By: #### . Automated Diff #### [address] [address] Lymph Absolute 3.8 x10*3/mcL Normal 1.0-4.8 [facility] Comment on above: Performed By: #### . Automated Diff #### [address] [address] Lymphocytes/100 WBC (Bld) 29.6 % Normal 27.2-40.8 [facility] Comment on above: Performed By: #### . Automated Diff #### [address] [address] [place] Absolute 0.8 x10*3/mcL Normal 0.1-1.1 [facility] Comment on above: Performed By: #### . Automated Diff #### [address] [address] Monocytes/100 WBC (Bld) 5.9 % Normal 3.7-11.9 [facility] Comment on above: Performed By: #### . Automated Diff #### [address] [address] Neutro Absolute 8.1 x10*3/mcL High 1.8-7.7 [facility] Comment on above: Performed By: #### . Automated Diff #### [address] [address] Neutro Auto 63.2 % Normal 47.2-70.8 [facility] Comment on above: Performed By: #### . Automated Diff #### [address] [address] HbA1c w/Rflx Fructosamineon 08-10-2022 Glucose [Mass/Vol] 128 mg/dL High 68-114 [facility] Comment on above: Result Comment: Math ematical Calc approx. The mean gluc equivalency of A1c Performed By: #### . Automated Diff #### [address] [address] Hgb A1c 6.1 % A1c High 4.0-5.6 [facility] Comment on above: Result Comment: Refe rence Range: 4.0 - 5.6 % Normal 5.7 - 6.4 % Pre-Diabetes > 6.5 % Diabetes Performed By: #### . Automated Diff #### [address] [address] PTon 08-10-2022 INR Coag (PPP) [Relative time] 1.0 {INR} Normal <=3.5 [facility] Comment on above: Result Comment: INR has no normal range. INR Therapeutic range is: 2.0-3.0 (AF, CVA, TIAs, DVT prophylaxis, acute DVT) 2.5-3.5 [facility], recurrent [facility]/emboli) Performed By: #### . Automated Diff #### [address] [address] PT Coag (PPP) [Time] 10.7 s Normal 9.3-11.9 [facility] Comment on above: Performed By: #### . Automated Diff #### [place] [address] PTTon 08-10-2022 aPTT Coag (Bld) [Time] 20.9 s Normal 20.6-29.2 [facility] Comment on above: Performed By: #### P TT ####[place] [id number] Provider Letteron 08-10-2022 Provider Letter Gayla Martinez CNP [address] [place] [address] Re: Stephanflavio López Date of Visit: 08/10/2022 Dear Gayla Martinez CNP, Let me know if you have any questions or concerns. Sincerely, Lin Cintron Providers: [CC Letter Providers Please see attached ECG results The following document(s) were included in the letter: August 10, 2022 13:05:57 EDT - (08/10/2022) Reminder Message Normal [facility] Provider Letter Gayla Martinez CNP [address] [place] [address] Re: Stephanflavio López Date of Visit: 08/10/2022 Dear Gayla Martinez CNP, Let me know if you have any questions or concerns. Sincerely, Lin Cintron Providers: [CC Letter Providers Please see attached lab results The following document(s) were included in the letter: August 10, 2022 13:04:48 EDT - (08/10/2022) Reminder Message Normal [facility] UA w Culture if Indon 2022 Color (U) Yellow Normal [facility] Comment on above: Performed By: #### U CI #### [address] [address] Ketones Ql (U) Negative Normal Negative [facility] Comment on above: Performed By: #### U CI #### [place] [address] UA Blood Negative Normal Negative [facility] Comment on above: Performed By: #### U CI #### [address] [place] [address] UA Clarity Clear Normal [facility] Comment on above: Performed By: #### U CI #### [address] [place] [address] UA Glucose Normal Normal Negative [facility] Comment on above: Performed By: #### U CI #### [address] [place] [address] UA Leukocyte Esterase Negative Normal Negative [facility] Comment on above: Performed By: #### U CI #### [address] [place] [address] UA Nitrite Negative Normal Negative [facility] Comment on above: Performed By: #### U CI #### [address] [address] UA pH 5.0 Normal 4.5 - 7.8 [facility] Comment on above: Performed By: #### U CI #### [address] [place] [address] UA Protein 10 mg/dL Normal Negative [facility] Comment on above: Performed By: #### U CI #### [address] [place] [address] UA Source Clean Catch Normal [facility] Comment on above: Performed By: #### U CI #### [address] [place] [address] UA Spec Grav 1.025 Normal 1.003-1.035 [facility] Comment on above: Performed By: #### U CI #### [address] [place] [address] UA Urobilinogen Normal Normal 0.2 - 1.0 [facility] Comment on above: Performed By: #### U CI #### [address] [address] Urobilinogen (U) [Mass/Vol] Negative Normal Negative [facility] Comment on above: Performed By: #### U CI #### [facility] [address] [place] [address] XR Chest 2 Viewson 3 XR Chest [...] Electronically Signed in Other Vendor System) Normal [facility] Neurosurgery Office/Clinic N oteon 07-23-2022 Neurosurgery [...] Sibling. I (more content not included)... Normal [facility] Neurosurgery Office/Clinic Note Chief Complaint Patient is being seen for a back follow up. History of Present Illness The patient is a pleasant 62-year-old right-handed female with history of qyv-xegjqwp-rwjptaqvs diabetes mellitus diagnosed in 2009, chronic nicotine [...] (provider interpretation): MRI cervical spine 05/29/2022 at [facility] reveals multilevel degenerative disc disease, most [...] overt instability. MRI lumbar spine 04/29/2022 at [facility] reveals multilevel degenerative disc disease. Significant [...] there is (more content not included)... Normal [facility] Office Visiton 07-03-2022 Follow-up visit [id number] James López 1960 F Date Provider Department Center 07/03/2022 INA JONES [facility] Family History Problem Relation Age of Onset Other Mother Heart attack Father Other Father Other Father Other Maternal Grandmother Family Status - Relation Status Age at Mother Father Maternal Grandmother Level of Service:35780 OK OFFICE/OUTPATIENT ESTABLISHED LOW MDM 20-29 MIN Reason for Visit and Comments: Hypertension [285458] pericardial effusion [Other] Normal [facility] PROF CHEM 8 (BAS METB)on Anion gap [Moles/Vol] 12.9 mmol/L Normal [facility] Comment on above: Performed By: #### C BC #### [facility] [address] [place] [address] [address] Yariel Herrera Calcium [Mass/Vol] 9.0 mg/dL Normal 8.5-10.1 [facility] Comment on above: Performed By: #### C BC #### [facility] [address] [place], [place] [address] Dr. Yariel Herrera Chloride [Moles/Vol] 106 mmol/L Normal 98-107 [facility] Comment on above: Performed By: #### C BC #### [facility] [address] [place] [address] [address] Yariel Herrera CO2 [Moles/Vol] 28.3 mmol/L Normal 21.0-32.0 [facility] Comment on above: Performed By: #### C BC #### [facility] [address] [place] [address] [address] Yariel Herrera Creatinine [Mass/Vol] 0.81 mg/dL Normal 0.55-1.02 [facility] Comment on above: Performed By: #### C BC #### [facility] [address] [place] [address] Dr. Yariel Herrera EGFR-AF FILIPINO >60 Normal >=60 [facility] Comment on above: Performed By: #### C BC #### [facility] [address] [place] [address] Dr. Yariel Herrera EGFR-NON AF FILIPINO >60 Normal >=60 [facility] Comment on above: Performed By: #### C BC #### [facility] [address] [place] [address] Dr. Yariel Herrera Glucose [Mass/Vol] 103 mg/dL Normal 74-106 [facility] Comment on above: Performed By: #### C BC #### [facility] [address] [place] [address] Dr. Yariel Herrera Potassium [Moles/Vol] 4.2 mmol/L Normal 3.5-5.1 [facility] Comment on above: Performed By: #### C BC #### [facility] [address] [place] [address] Dr. Yariel Herrera Sodium [Moles/Vol] 143 mmol/L Normal 136-145 [facility] Comment on above: Performed By: #### C BC #### [facility] [address] [place] [address] Dr. Yariel Herrera Urea nitrogen [Mass/Vol] 9.0 mg/dL Normal 7.0-18.0 [facility] Comment on above: Performed By: #### C BC #### [facility] [address] [place], [place] [address] Dr. Yariel Herrera Urea nitrogen/Creatinine [Mass ratio] 11.1 mg/mg Normal [facility] Comment on above: Performed By: #### C BC #### [facility] [address] [place], [place] [address] Dr. Yariel Herrera 37on 06-10-2022 37 Start lisinopril 2.5 mg daily, Have labs/blood checked in 1 week for kidney function Monitor b/p at home 1-2 times/day and record on a log- bring with her to next visit. If you notice a dry, persistent cough- stop lisinopril and call office please. Normal [facility] Office Visiton 06-10-2022 Follow-up visit [id number] James López Lin 1960 F Date Provider Department Center 06/10/2022 INA JONES [facility] Family History Problem Relation Age of Onset Other Mother Heart attack Father Other Father Other Father Other Maternal Grandmother Family Status - Relation Status Age at Mother Father Maternal Grandmother Level of Service:37979 OK OFFICE/OUTPATIENT ESTABLISHED MOD MDM 30-39 MIN Normal [facility] ECHOCARDIO M/2D COMPLETEon 0 05-08-2022 ECHOCARDIO M/2D COMPLETE Patient: STEPHAN LÓPEZ. Exam Date: 05/08/2022 : 1960 Gender:F Ordering : CARL WILLIS Admission #: [id number] Family : GAURAV MARTINEZ [employer] Order #: [id number] CLICK HERE TO VIEW EXAM ECHOCARDIOGRAM REPORT [...] Garzon M.D. on 05/08/2022 at 14:20 Normal [facility] ABHINAV by IFAon 01-08-2022 Antinuclear Antibodies, IFA Negative Normal [facility] Comment on above: Result Comment: Nega tive <1:80 Borderline 1:80 Positive >1:80 ICAP nomenclature: AC-0 For more information about Hep-2 cell patterns use ANApatterns.org, the official website for the International Consensus on Antinuclear Antibody (ABHINAV) Patterns (ICAP). Performed By: #### A NAIFA #### [facility] [address] [place] [address] Dr. Yariel Herrera CBC AUTO DIFFon 01-05-2022 BASO # 0.1 103/ul Normal 0.0-0.1 [facility] Comment on above: Performed By: #### C BC #### [facility] [address] [address] [address] Yariel Herrera Basophils/100 WBC (Bld) 0.6 % Normal 0.2-2.0 [facility] Comment on above: Performed By: #### C BC #### [facility] [address] [address] [address] Yariel Herrera EO # 0.2 103/ul Normal 0.0-0.7 [facility] Comment on above: Performed By: #### C BC #### [facility] [address] [place] [address] Dr. Yariel Herrera Eosinophils/100 WBC (Bld) 1.4 % Normal 0.9-7.0 [facility] Comment on above: Performed By: #### C BC #### [facility] [address] [place] [address] Dr. Yariel Herrera Erythrocyte distribution width (RBC) [Ratio] 13.6 % Normal 11.0-15.0 [facility] Comment on above: Performed By: #### C BC #### [facility] [address] [place] [address] Dr. Yariel Herrera Hematocrit (Bld) [Volume fraction] 46.6 % Normal 36.0-48.0 [facility] Comment on above: Performed By: #### C BC #### [facility] [address] [place] [address] Dr. Yariel Herrera Hemoglobin (Bld) [Mass/Vol] 15.4 g/dL Normal 12.0-16.0 [facility] Comment on above: Performed By: #### C BC #### [facility] [address] [place] [address] Dr. Yariel Herrera IG # 0.03 10e3/ul Normal 0.00-0.03 [facility] Comment on above: Performed By: #### C BC #### [facility] [address] [place] [address] Dr. Yariel Herrera IG % 0.2 % Normal 0.0-0.5 [facility] Comment on above: Performed By: #### C BC #### [facility] [address] [address] [address] Yariel Herrera LYMPH # 4.2 103/ul Critically high 1.2-3.8 [facility] Comment on above: Performed By: #### C BC #### [facility] [address] [place] [address] Dr. Yariel Herrera Lymphocytes/100 WBC (Bld) 31.3 % Normal 20.5-60.0 [facility] Comment on above: Performed By: #### C BC #### [facility] [address] [place] [address] Dr. Yariel Herrera MANUAL DIFF REQ NO Normal [facility] Comment on above: Performed By: #### C BC #### [facility] [address] [place] [address] Dr. Yariel Herrera MCH (RBC) [Entitic mass] 31.6 pg Normal 26.7-34.0 [facility] Comment on above: Performed By: #### C BC #### [facility] [address] [place] [address] Dr. Yariel Herrera MCHC (RBC) [Mass/Vol] 33.0 g/dL Normal 29.9-35.2 [facility] Comment on above: Performed By: #### C BC #### [facility] [address] [place] [address] Dr. Yariel Herrera MCV (RBC) [Entitic vol] 95.7 fL Normal 81.0-99.0 [facility] Comment on above: Performed By: #### C BC #### [facility] [address] [place] [address] Dr. Yariel Herrera MONO # 0.9 103/ul Critically high 0.3-0.8 [facility] Comment on above: Performed By: #### C BC #### [facility] [address] [place] [address] Dr. Yariel Herrera Monocytes/100 WBC (Bld) 6.8 % Normal 1.7-12.0 [facility] Comment on above: Performed By: #### C BC #### [facility] [address] [address] [address] Yariel Herrera NEUT # 8.0 103/ul Critically high 1.4-6.5 [facility] Comment on above: Performed By: #### C BC #### [facility] [address] [address] [address] Yariel Herrera Neutrophils/100 WBC (Bld) 59.7 % Normal 43.0-75.0 [facility] Comment on above: Performed By: #### C BC #### [facility] [address] [place] [address] Dr. Yariel Herrera Platelet mean volume (Bld) [Entitic vol] 10.7 fL Normal 9.5-13.5 [facility] Comment on above: Performed By: #### C BC #### [facility] [address] [place] [address] Dr. Yariel Herrera PLT 340 103/ul Normal 150-450 [facility] Comment on above: Performed By: #### C BC #### [facility] [address] [place] [address] Dr. Yariel Herrera RBC 4.87 106/ul Normal 4.20-5.40 [facility] Comment on above: Performed By: #### C BC #### [facility] [address] [place] [address] Dr. Yariel Herrera WBC 13.4 103/ul Critically high 4.0-11.0 [facility] Comment on above: Performed By: #### C BC #### [facility] [address] [place] [address] Dr. Yariel Herrera FREE T4on 01-05-2022 Free T4 [Mass/Vol] 1.06 ng/dL Normal 0.76-1.46 [facility] Comment on above: Performed By: #### C BC #### [facility] [address] [place] [address] Dr. Yariel Herrera PROF 14(COMP METB)on 022 Albumin [Mass/Vol] 3.9 g/dL Normal 3.4-5.0 [facility] Comment on above: Performed By: #### C MP, TSH #### [facility] [address] [address] [address] Yariel Herrera Albumin/Globulin [Mass ratio] 1.1 {ratio} Normal [facility] Comment on above: Performed By: #### C MP, TSH #### [facility] [address] [address] [address] Yariel Herrera ALP [Catalytic activity/Vol] 99 U/L Normal 46-116 [facility] Comment on above: Performed By: #### C MP, TSH #### [facility] [address] [address] [address] Yariel Herrera ALT [Catalytic activity/Vol] 17 U/L Normal 14-59 [facility] Comment on above: Performed By: #### C MP, TSH #### [facility] [address] [address] [address] Yariel Herrera Anion gap [Moles/Vol] 10.1 mmol/L Normal [facility] Comment on above: Performed By: #### C MP, TSH #### [facility] [address] [address] [address] Yariel Herrera AST [Catalytic activity/Vol] 14 U/L Critically low 15-37 [facility] Comment on above: Performed By: #### C MP, TSH #### [facility] [address] [address] [address] Yariel Herrera Bilirubin [Mass/Vol] 0.3 mg/dL Normal 0.2-1.0 [facility] Comment on above: Performed By: #### C MP, TSH #### [facility] [address] [address] [address] Yariel Herrera Calcium [Mass/Vol] 9.4 mg/dL Normal 8.5-10.1 [facility] Comment on above: Performed By: #### C MP, TSH #### [facility] [address] [address] [address] Yariel Herrera Chloride [Moles/Vol] 103 mmol/L Normal 98-107 [facility] Comment on above: Performed By: #### C MP, TSH #### [facility] [address] [address] [address] Yariel Herrera CO2 [Moles/Vol] 30.9 mmol/L Normal 21.0-32.0 [facility] Comment on above: Performed By: #### C MP, TSH #### [facility] [address] [address] [address] Yariel Herrera Creatinine [Mass/Vol] 0.88 mg/dL Normal 0.55-1.02 [facility] Comment on above: Performed By: #### C MP, TSH #### [facility] [address] [address] [address] Yariel Herrera EGFR-AF FILIPINO >60 Normal >=60 [facility] Comment on above: Performed By: #### C MP, TSH #### [facility] [address] [place] [address] Dr. Yariel Herrera EGFR-NON AF FILIPINO >60 Normal >=60 [facility] Comment on above: Performed By: #### C MP, TSH #### [facility] [address] [address] [address] Yariel Herrera Globulin (S) [Mass/Vol] 3.5 g/dL Normal [facility] Comment on above: Performed By: #### C MP, TSH #### [facility] [address] [address] [address] Yariel Herrera Glucose [Mass/Vol] 117 mg/dL Critically high 74-106 [facility] Comment on above: Performed By: #### C MP, TSH #### [facility] [address] [address] [address] Yariel Herrera Potassium [Moles/Vol] 4.0 mmol/L Normal 3.5-5.1 [facility] Comment on above: Performed By: #### C MP, TSH #### [facility] [address] [address] [address] Yariel Herrera Protein [Mass/Vol] 7.4 g/dL Normal 6.4-8.2 [facility] Comment on above: Performed By: #### C MP, TSH #### [facility] [address] [address] [address] Yariel Herrera Sodium [Moles/Vol] 140 mmol/L Normal 136-145 [facility] Comment on above: Performed By: #### C MP, TSH #### [facility] [address] [address] [address] Yariel Herrera Urea nitrogen [Mass/Vol] 18.0 mg/dL Normal 7.0-18.0 [facility] Comment on above: Performed By: #### C MP, TSH #### [facility] [address] [place] [address] Dr. Yariel Herrera Urea nitrogen/Creatinine [Mass ratio] 20.5 mg/mg Normal [facility] Comment on above: Performed By: #### C MP, TSH #### [facility] [address] [place] [address] Dr. Yariel Herrera TSHon 01-05-2022 TSH 1.380 uIU/mL Normal 0.358-3.740 [facility] Comment on above: Performed By: #### C MP, TSH #### [facility] [address] [place] [address] Dr. Yariel Herrera GLYCOHEMOGLOBIN A1Con 2021 ADA RECOMMENDATION SEE BELOW Normal [facility] Comment on above: Result Comment: ADA RECOMMENDED LIMIT 4.0 - 6.0 ADA THERAPEUTIC TARGET < 7.0 ACTION SUGGESTED > 7.0 Performed By: #### A 1C #### [facility] [address] [place] [address] Dr. Yariel Herrera Glucose [Mass/Vol] 137 mg/dL Normal [facility] Comment on above: Performed By: #### A 1C #### [facility] [address] [place] [address] Dr. Yariel Herrera HbA1c (Bld) [Mass fraction] 6.4 % Critically high 4.5-6.2 [facility] Comment on above: Performed By: #### A 1C #### [facility] [address] [place] [address] Dr. Yariel Herrera ECHOCARDIO M/2D COMPLETEon 0 10-16-2021 ECHOCARDIO M/2D COMPLETE Patient: STEPHAN LÓPEZ Exam Date: 10/16/2021 : 1960 Gender:F Ordering : CARL WILLIS Admission #: [id number] Family : Order #: [id number] CLICK HERE TO VIEW EXAM ECHOCARDIOGRAM REPORT [...] Melvin M.D. on 10/16/2021 at 17:12 Normal [facility] ECHOCARDIO M/2D COMPLETEon 0 09-16-2021 ECHOCARDIO M/2D COMPLETE Patient: STEPHAN LÓPEZ Exam Date: 09/16/2021 : 1960 Gender:F Ordering : GAURAV GAYLA MARTINEZ [employer] [employer] Admission #: [id number] Family : Order #: [id number] CLICK HERE TO VIEW EXAM ECHOCARDIOGRAM REPORT [...] 09/17/2021 at 13:02 Normal [facility] CBC AUTO DIFFon 08-04-2021 BASO # 0.1 103/ul Normal 0.0-0.1 [facility] Comment on above: Performed By: #### C BC #### [facility] [address] [address] [address] Yariel Herrera Basophils/100 WBC (Bld) 0.6 % Normal 0.2-2.0 [facility] Comment on above: Performed By: #### C BC #### [facility] [address] [place] [address] Dr. Yariel Herrera EO # 0.1 103/ul Normal 0.0-0.7 [facility] Comment on above: Performed By: #### C BC #### [facility] [address] [place] [address] Dr. Yariel Herrera Eosinophils/100 WBC (Bld) 0.9 % Normal 0.9-7.0 [facility] Comment on above: Performed By: #### C BC #### [facility] [address] [place] [address] Dr. Yariel Herrera Erythrocyte distribution width (RBC) [Ratio] 13.8 % Normal 11.0-15.0 [facility] Comment on above: Performed By: #### C BC #### [facility] [address] [place] [address] Dr. Yariel Herrera Hematocrit (Bld) [Volume fraction] 47.1 % Normal 36.0-48.0 [facility] Comment on above: Performed By: #### C BC #### [facility] [address] [place] [address] Dr. Yariel Herrera Hemoglobin (Bld) [Mass/Vol] 15.2 g/dL Normal 12.0-16.0 [facility] Comment on above: Performed By: #### C BC #### [facility] [address] [place] [address] Dr. Yariel Herrera IG # 0.04 10e3/ul Critically high 0.00-0.03 [facility] Comment on above: Performed By: #### C BC #### [facility] [address] [place] [address] Dr. Yariel Herrera IG % 0.3 % Normal 0.0-0.5 [facility] Comment on above: Performed By: #### C BC #### [facility] [address] [place] [address] Dr. Yariel Herrera LYMPH # 3.7 103/ul Normal 1.2-3.8 [facility] Comment on above: Performed By: #### C BC #### [facility] [address] [place] [address] Dr. Yariel Herrera Lymphocytes/100 WBC (Bld) 30.6 % Normal 20.5-60.0 [facility] Comment on above: Performed By: #### C BC #### [facility] [address] [place] [address] Dr. Yariel Herrera MANUAL DIFF REQ NO Normal [facility] Comment on above: Performed By: #### C BC #### [facility] [address] [place] [address] Dr. Yariel Herrera MCH (RBC) [Entitic mass] 32.0 pg Normal 26.7-34.0 [facility] Comment on above: Performed By: #### C BC #### [facility] [address] [place] [address] Dr. Yariel Herrera MCHC (RBC) [Mass/Vol] 32.3 g/dL Normal 29.9-35.2 [facility] Comment on above: Performed By: #### C BC #### [facility] [address] [place] [address] Dr. Yariel Herrera MCV (RBC) [Entitic vol] 99.2 fL Critically high 81.0-99.0 [facility] Comment on above: Performed By: #### C BC #### [facility] [address] [place] [address] Dr. Yariel Herrera MONO # 0.9 103/ul Critically high 0.3-0.8 [facility] Comment on above: Performed By: #### C BC #### [facility] [address] [place] [address] Dr. Yariel Herrera Monocytes/100 WBC (Bld) 7.4 % Normal 1.7-12.0 [facility] Comment on above: Performed By: #### C BC #### [facility] [address] [place] [address] Dr. Yariel Herrera NEUT # 7.3 103/ul Critically high 1.4-6.5 [facility] Comment on above: Performed By: #### C BC #### [facility] [address] [place] [address] Dr. Yariel Herrera Neutrophils/100 WBC (Bld) 60.2 % Normal 43.0-75.0 [facility] Comment on above: Performed By: #### C BC #### [facility] [address] [place] [address] Dr. Yariel Herrera Platelet mean volume (Bld) [Entitic vol] 11.7 fL Normal 9.5-13.5 [facility] Comment on above: Performed By: #### C BC #### [facility] [address] [place] [address] Dr. Yariel Hererra PLT 330 103/ul Normal 150-450 [facility] Comment on above: Performed By: #### C BC #### [facility] [address] [place] [address] Dr. Yariel Herrera RBC 4.75 106/ul Normal 4.20-5.40 [facility] Comment on above: Performed By: #### C BC #### [facility] [address] [place] [address] Dr. Yariel Herrera WBC 12.1 103/ul Critically high 4.0-11.0 [facility] Comment on above: Performed By: #### C BC #### [facility] [address] [place] [address] Dr. Yariel Herrera FREE T3on 08-04-2021 FREE T3 2.46 pg/mlL Normal 2.18-3.98 [facility] Comment on above: Performed By: #### C BC #### [facility] [address] [place] [address] Dr. Yariel Herrera FREE T4on 08-04-2021 Free T4 [Mass/Vol] 1.08 ng/dL Normal 0.76-1.46 [facility] Comment on above: Performed By: #### F T4 #### [facility] [address] [place] [address] Dr. Yariel Herrera PROF 14(COMP METB)on 022 Albumin [Mass/Vol] 4.2 g/dL Normal 3.4-5.0 [facility] Comment on above: Performed By: #### C BC #### [facility] [address] [place] [address] Dr. Yariel Herrera Albumin/Globulin [Mass ratio] 1.2 {ratio} Normal [facility] Comment on above: Performed By: #### C BC #### [facility] [address] [place] [address] Dr. Yariel Herrera ALP [Catalytic activity/Vol] 87 U/L Normal 46-116 [facility] Comment on above: Performed By: #### C BC #### [facility] [address] [place] [address] Dr. Yariel Herrera ALT [Catalytic activity/Vol] 25 U/L Normal 14-59 [facility] Comment on above: Performed By: #### C BC #### [facility] [address] [place] [address] Dr. Yraiel Herrera Anion gap [Moles/Vol] 13.3 mmol/L Normal [facility] Comment on above: Performed By: #### C BC #### [facility] [address] [place] [address] Dr. Yariel Herrera AST [Catalytic activity/Vol] 15 U/L Normal 15-37 [facility] Comment on above: Performed By: #### C BC #### [facility] [address] [place] [address] Dr. Yariel Herrera Bilirubin [Mass/Vol] 0.5 mg/dL Normal 0.2-1.0 [facility] Comment on above: Performed By: #### C BC #### [facility] [address] [place] [address] Dr. Yariel Herrera Calcium [Mass/Vol] 9.6 mg/dL Normal 8.5-10.1 [facility] Comment on above: Performed By: #### C BC #### [facility] [address] [place] [address] Dr. Yariel Herrera Chloride [Moles/Vol] 103 mmol/L Normal 98-107 [facility] Comment on above: Performed By: #### C BC #### [facility] [address] [place] [address] Dr. Yariel Herrera CO2 [Moles/Vol] 28.9 mmol/L Normal 21.0-32.0 [facility] Comment on above: Performed By: #### C BC #### [facility] [address] [address] [address] Yariel Herrera Creatinine [Mass/Vol] 0.84 mg/dL Normal 0.55-1.02 [facility] Comment on above: Performed By: #### C BC #### [facility] [address] [address] [address] Yariel Herrera EGFR-AF FILIPINO >60 Normal >=60 [facility] Comment on above: Performed By: #### C BC #### [facility] [address] [place] [address] Dr. Yariel Herrera EGFR-NON AF FILIPINO >60 Normal >=60 [facility] Comment on above: Performed By: #### C BC #### [facility] [address] [place] [address] Dr. Yariel Herrera Globulin (S) [Mass/Vol] 3.4 g/dL Normal [facility] Comment on above: Performed By: #### C BC #### [facility] [address] [place] [address] Dr. Yariel Herrera Glucose [Mass/Vol] 111 mg/dL Critically high 74-106 [facility] Comment on above: Performed By: #### C BC #### [facility] [address] [place] [address] Dr. Yariel Herrera Potassium [Moles/Vol] 4.2 mmol/L Normal 3.5-5.1 [facility] Comment on above: Performed By: #### C BC #### [facility] [address] [place] [address] Dr. Yariel Herrera Protein [Mass/Vol] 7.6 g/dL Normal 6.4-8.2 [facility] Comment on above: Performed By: #### C BC #### [facility] [address] [place] [address] Dr. Yariel Herrera Sodium [Moles/Vol] 141 mmol/L Normal 136-145 [facility] Comment on above: Performed By: #### C BC #### [facility] [address] [address] [address] Yariel Herrera Urea nitrogen [Mass/Vol] 15.0 mg/dL Normal 7.0-18.0 [facility] Comment on above: Performed By: #### C BC #### [facility] [address] [address] [address] Yariel Herrera Urea nitrogen/Creatinine [Mass ratio] 17.9 mg/mg Normal [facility] Comment on above: Performed By: #### C BC #### [facility] [address] [address] [address] Yariel Herrera TSHon 08-04-2021 TSH 1.073 uIU/mL Normal 0.358-3.740 [facility] Comment on above: Performed By: #### C BC #### [facility] [address] [address] [address] Yariel Herrera TSH RANGE SEE BELOW Normal [facility] Comment on above: Result Comment: <0.3 4 UIU/ml HYPERTHYROID 0.34-5.60 UIU/ml EUTHYROID >5.60 UIU/ml HYPOTHYROID Performed By: #### C BC #### [facility] [address] [address] [address] Yariel Herrera Social History Date Type Detail Facility Start: 02-08-2023 Alcohol intake Lifetime non-d mariaa (finding) [facility] Start: 01[facility]23 [facility] Start: 01-25-2023 Cigarettes smoked cu rrent (pack per day) - Reported 0.5 [facility] Start: 01-25-2023 Tobacco use and exposure Smoke less tobacco non-user [facility] Start: 01-25-2023 Tobacco use panel [facility] Start: 1960 Sex Assigned At Not on file [facility] History of tobacco use Cigarette Smoker [facility] Clinical Notes 06-10-2022 to 01-19-2023 Note Date & Type Note Facility 01-19-2023 Note Cardiovascular Medic ine [facility] SUBJECTIVE Chief Complaint Patient presents with Follow-up Hypertension Stephan López is a 62 y.o. female here for follow-up. HPI PMHx: HTN, pericardial effusion, HLD She denies any cardiac concerns today. She has back problems. She is 5 months s/p surgery and she is still recovering. She is following with pain management at [facility]. She is not currently checking her [...] needed. Dante Hand NP [facility] Cardiovascular [facility] 01-19-2023 Note Patient here for 6 m [...] All other systems reviewed and are negative. [facility] 08-24-2022 Note Admission Mat Hayes 62-year-old female [...] neurosurgery education form Follow-up: As scheduled preoperatively-call [phone] to confirm appointment to be seen in the neurosurgery clinic approximately 2 weeks after surgery Procedures while admitted: -Decompressive laminectomies of L3 and L4 as well as superior third of L5 with total foraminotomies bilateral L3-4 and L4-5; interbody arthrodesis L4-5 using TLIF technique with locally harvested autograft from laminectomy and [employer] elevate expandable cage 8-12 mm; posterolateral arthrodesis L3-L4 and L5 bilaterally with locally harvested autograft and small kit infuse from [employer] due to chronic nicotine abuse; transpedicular fixation L3, L4, L5 bilaterally with [employer] Osteogrip screws 6.5 mm in diameter; resection of juxta articular facet cyst left L4-5; computer-assisted hardware placement using Exindaalth station and [employer] O-arm Medications Home atorvastatin 20 mg oral [...] oral capsule, 500 mg= 1 caps, Oral, [id number] Times magnesium hydroxide 8% oral suspension, 1.2 [...] Refill(s), 08/31/22 7:48:00 EDT, Pharmacy: [facility] #[id number] Discharge Patient 3. Lumbar radiculopathy Ordered: Discharge Patient 4. Nicotine dependence Ordered: Discharge Patient Orders: ascorbic acid, 1 tabs, Oral, q8hr, # 270 tabs, 0 Refill(s), Pharmacy: [facility] #[id number] cephalexin, 500 mg, Oral, Cap, [id number] Times for 12 doses, First Dose: 08/24/22 12:00:00 EDT, Stop Date: 08/27/22 11:59:00 EDT, Dispense From Location: [address], Prophylaxis- Pre/Post-Op, 08/24/22 7:40:00 EDT cephalexin, 1 caps, Oral, [id number] Times, X 3 days, # 12 caps, 0 Refill(s), 08/27/22 7:47:00 EDT, Pharmacy: [facility] #[id number] docusate, 1 caps, Oral, BID, # 14 caps, 0 Refill(s), Pharmacy: [facility] #[id number] ferrous sulfate, 1 tabs, Oral, BID, # 60 tabs, 0 Refill(s), Pharmacy: [facility] #[id number] magnesium hydroxide, 15 mL, Ora (more content not included)... [facility] 07-03-2022 Note No concerning symptoms [facility] 07-03-2022 Note Hypertension is well controlled 120/84 Reviewed b/p log and overall her b/p is controlled with some outliers of high and low b/p. Renal function was normal s/p starting lisinopril [facility] 07-03-2022 Note Patient here for 1 m [...] All other systems reviewed and are negative. [facility] 07-03-2022 Note [facility] CARDIOLOGY PROGR ESS NOTE [...] effusion No concerning symptoms RTC 6 months [facility] 06-10-2022 Note F/U with PCP [facility] 06-10-2022 Note Hypertension is 145/ 99 uncontrolled Will start lisinopril 2.5 mg daily BMP in 1 week Start monitoring b/p at home and record on a log, RTC 1 month D/W pt about side effects of 1st dose low b/p and dry persistent cough [facility] 06-10-2022 Note Recent echo with not ed trivial effusion. No recent illness or any concerning symptoms [facility] 06-10-2022 Note [facility] CARDIOLOGY PROGR ESS NOTE HPI: Stephan López is a 62 y.o. female here for routine f/U for pericardial effusion. At the time, patient denied any cardiac complaints. She denied any chest pain or shortness of breath. She denies any cardiac history. No history of AR, PCI, CHF. Repeat echocardiogram demonstrated a trivial [...] with PCP RTC 1 month for re-evaluation [facility] 06-10-2022 Note Patient here for 6 m o follow up pericardial effusion. Had echo in April 2022. Denies chest pain and SOB. Review of Systems Musculoskeletal: Positive for back pain. All other systems reviewed and are negative. [facility] Evaluation note Diagnosis COPD with exacerbation (CMS/HCC)- [...] DATE CREATED AUTHOR 06/21/2022 [facility] DATE CREATED AUTHOR AUTHOR'S ORGANIZ ATION 03/20/2023 [facility] DATE CREATED AUTHOR AUTHOR'S ORGANIZ ATION 07/10/2023 [facility] DATE CREATED AUTHOR AUTHOR'S ORGANIZ ATION 07/28/2023 [facility] Care Teams (unrecognized sec tion and content) Methods Study Analyst Relationship Specialty Start Date End Date Jim Deleon MD [address] [place] [id number] PCP - General Family Medicine 09/18/22 Gayla Martinez NP [address] [place] [id number] Referring Physician Nurse Practitioner 09/18/22 Methods Study Analyst Relationship Specialty Start Date End Date Jim Deleon MD [address] [place] [id number] PCP - General Family Medicine 09/18/22 Gayla Martinez NP [address] [place] [address] Referring Physician Nurse Practitioner 09/18/22 FOR [...] BE BASED ON THE PRIMARY CLINICAL RECORDS. [facility] [employer] [facility]. provides no warranty or guarantee of the accuracy or completeness of information in this document.
== END 2023-08-03 08:23 | disposition home or self-care (01) ==
LOC: MRI 08:22
PROVIDERS: PCP Nurse Practitioner; Visit Provider Nurse Practitioner
DX: M96.1 Postlaminectomy syndrome, not elsewhere classified (principal); M48.062 Spinal stenosis, lumbar region with neurogenic claudication
CPT/HCPCS: 72158; A9575

== ENCOUNTER 2023-08-12 08:55 | Outpatient (OUT) | payer OTHER, SELFPAY ==
--- NOTE | 2023-08-12 08:57 | P.CN_ITS ---
Consult Note: HPI Data of Consult Patient: known to practice within the last 3 years Requesting Physician: Gwendolyn Salamanca NP Primary Care Provider: Gayla Martinez NP Consult Narrative Reason for consult: f/u Narrative: Stephan muniz pleasant 63 year old female presents for evaluation and management of chronic back pain. Today pain 5/10 in right low back and right hip, describes as a sharp burning pain. Patient has a hx of L3,4,5 fusion. Patient utilizing external bone stimulator. Patient has found mild benefit to current medication regimen, no side effects. Patient continues to have moderate to severe pain that is severely impacting functional ability, DIONNA 46%. Patient has completed aquatherapy without improvement. Recently underwent Bilateral L5- S1 transforaminal epidural steroid injection with 80% improvement in low back and radicular pain less than 3 months. Recent right SIJ injection provided 85% pain relief for 2 days, no ongoing improvement. most recently bilateral L5-S1 MBB #1 with 50% improvement immediately after and following but less than 80%. cc:: CC: Gwendolyn Salamanca NP Review of Systems 2 ROS0 Status of ROS 10 or more systems reviewed and unremark able except as noted in history and below Musculoskeletal Reports: back pain and extremity pain [facility] Medical History Low back pain ?M54.50 - Low back pain, unspecified (ICD-10) Osteoarthritis ?M19.90 - Unspecified osteoarthritis, unspecified site (ICD-10) Diabetes ?E11.9 - Type 2 diabetes mellitus without complications (ICD-10) COPD (chronic obstructive pulmonary disease) ?J44.9 - Chronic obstructive pulmonary disease, unspecified (ICD-10) Smoker ?F17.200 - Nicotine dependence, unspecified, uncomplicated (ICD-10) Hypertension ?I10 - Essential (primary) hypertension (ICD-10) Surgical History S/P surgical removal of pilonidal cyst ?Z98.890 - Other specified postprocedural states (ICD-10) H/O lumbosacral spine surgery ?Z98.890 - Other specified postprocedural states (ICD-10) Meds Home Medications and Allergies Home Medications ?Medication ?Instructions ?Recorded ?Confirmed ?Type amitriptyline 10 mg tablet 25 mg PO DAILY 11/23/22 06/14/23 History atorvastatin 20 mg tablet 20 mg PO DAILY 11/23/22 06/14/23 History ferrous sulfate 325 mg (65 mg 325 mg PO DAILY 11/23/22 06/14/23 History iron) tablet (FeroSul) fluticasone fur. 100 mcg-umeclid 1 inh inhalation DAILY 11/23/22 06/14/23 History 62.5 mcg-vilant 25 mcg inhalat.powder (Trelegy Ellipta) lisinopril 2.5 mg tablet 2.5 mg PO DAILY 11/23/22 06/14/23 History metformin 500 mg tablet 500 mg PO BID 11/23/22 06/14/23 History tizanidine 4 mg capsule 4 mg PO DAILY PRN muscle spasticity 11/23/22 06/14/23 History meloxicam 15 mg tablet 15 mg PO DAILY 04/15/23 06/14/23 History naloxone 4 mg/actuation nasal 4 mg intranasal Q3M PRN opioid 05/19/23 06/14/23 Rx spray (Narcan) overdose #2 ea tramadol 50 mg tablet 50 mg PO BID PRN pain #60 tabs 05/19/23 06/14/23 Rx Allergies Allergy/AdvReac Type Severity Reaction Status Date / Time No Known Drug Allergies Allergy Verified 11/23/22 14:05 Exam Constitutional Documenting provider has reviewed patient's vital signs: yes Common normals: no apparent distress, oriented x3, healthy appearing, alert and well nourished General appearance: cooperative [facility] Common normals: normocephalic, hearing grossly normal bilaterally and moist oral mucous membranes Head and scalp: normocephalic Eye Common normals: PERRL Pupil: PERRL Neck & C-Spine Common normals: full ROM General: normal visual inspection Chest Common normals: inspection of chest normal Respiratory Common normals: normal respiratory effort, no retractions and no use of accessory muscles Back & Pelvis Lumbar spine/lower back: ROM limited, pain with ROM, lumbar spinal tenderness and straight leg raise negative bilaterally Sacroiliac joints: SI joint(s) abnormal Other: facet loading bilateral negative radiculopathy, strength 5/5 in BLE right SIJ pain over PSIS, positive DECLAN, FADIR, thigh thrust, gaenslens chronic right low back pain as noted below Back image (female): 2 1. Extremity Common normals: normal to inspection and full ROM Neuro Common normals: oriented x3, CN's II-XII intact bilaterally, moves all extremities, no focal motor deficits, no sensory deficits noted and deep tendon reflexes 2+ bilaterally Sensorium/orientation: alert Gait (neuro): antalgic and assistive device used cane Motor exam: strength 5/5 throughout and no movement abnormalities noted Psych Common normals: mental status grossly normal, thought process normal, cooperative, affect normal, speech normal and activity/motor behavior normal Speech: normal speech Thought process: normal thought process Results Imaging Lumbar MRI: Attestation: I have reviewed the pertinent imaging results. Radiologist's impression: FINDINGS: For the purposes of numbering, sagittal T2 image # 7 extends from the T11 vertebral body superiorly to the S2-S3 level inferiorly. PARASPINAL AREA: Normal with no visible mass. BONES: 6 mm anterolisthesis of L4 in relation to L5. L3-L5 posterior decompression with areas of fluid signal in the surgical bed, bilateral transpedicular fusion with resultant susceptibility. Area of signal abnormality in the L2 vertebral body, nonspecific possibly hemangioma CORD/CAUDA EQUINA: Normal caliber, contour, and signal intensity. No abnormal postcontrast enhancement is identified DISC LEVELS: 12-L1: No significant disc/facet abnormality, spinal stenosis, or foraminal stenosis. L1-L2: Moderate disc space narrowing and disc desiccation. Posterior broad-based disc/osteophyte complex narrows the central canal to 9 mm in AP dimension axial image #9. No foraminal stenosis L2-L3: Disc collapse with endplate sclerosis. Broad-based posterior disc herniation the protrusion type extending posteriorly up to 4.8 mm with inferior subligamentous component measuring up to 5.3 mm. This results in moderate narrowing of the central canal. Facet osteoarthropathy. Mild right foraminal stenosis L3-L4: Early degenerative disc disease is present without focal protrusion or neural impingement. L4-L5: 6 mm anterolisthesis of L4 in relation to L5. Disc desiccation. No disc bulge or herniation. No central canal stenosis. Mild bilateral foraminal stenosis related to the spondylolisthesis L5-S1: Moderate disc space narrowing and disc desiccation. Posterior broad-based disc protrusion. Bilateral facet osteoarthropathy. No central canal stenosis. Moderate bilateral foraminal stenosis Additional Findings Additional findings: If on a controlled substance or opioids, I have checked an [place] report on this patient and there are no aberrancies noted in the prescribing history.??If on a controlled substance or opioid a drug screen was completed and reviewed within the last year, and if there has not been a drug screen completed we ordered one today to monitor higher risk, state monitored pain medication use. As part of providing excellent, safe, comprehensive care, the following was completed at our patient's visit: 1. A medication reconciliation and review to ensure accurate knowledge of current/active medications, including asking our patients to inform us about any [id number] medications or herbal remedies/nutritional supplements/alternative remedies. 2. A review to specifically ensure our patients have had annual screening for screening for depression, screening for tobacco use, and screening for unhealthy alcohol use. For concerning screenings had a discussion with the patient, provided patient education, and recommended follow-up with primary care provider when appropriate. If patient noted with a risk of falling, they received education on strength, gait, and balance training to prevent future risk of falling. Assessment and Plan Assessment and Plan (1) Chronic right-sided low back pain without sciatica: (2) Failed back syndrome: (3) Lumbar stenosis with neurogenic claudication: (4) Lumbar spondylosis: (5) Sacroiliitis: (6) Chronic prescription opiate use: Assessment and Plan: I feel these medications are improving the patient's quality of life and allow them to tolerate activities of daily living as well as participate in recreational activity.? The patient does not report intolerable side effects. The patient is NOT opioid naive and non-pharmacologic and non-opioid treatment has failed to significantly relieve the patient's pain and improve functionality. The patient has a diagnosis that is related to a somatic or visceral pain etiology. ? ?? I reviewed with the patient the potential risks and side effects with the use of? opioid medications including but not limited to respiratory depression,? sedation, and even . I verified the patient has access to naloxone should? these effects occur. I advised the patient to avoid the use of any other? sedation substances including alcohol, THC, and benzodiazepines while? taking opioid medications due to the risk of compounding side effects and? detrimental outcomes. I reviewed the [employer]FF [employer]BER, pain treatment agreement, urine? drug screen, and opioid start talking forms. The patient was advised to let? their family know they had Naloxone in case they would need to administer? the medication.? ?? A drug screen was completed within the last year, and no aberrancies were noted regarding their use of controlled substances. The patient understands they are subject to the terms and conditions of the pain contract that they have signed. ? ?? I have checked an [place]AR[place] report on this patient today and there are no aberrancies noted in the prescribing history.? (7) Muscle spasm: Plan lumbar MRI reviewed with patient, will fax to Dr Snider as patient is one year post lumbar fusion and has an upcoming appointment 09/25/23. discussed right superior cluneal nerve block x1 under fluoroscopy working towards thermal RFA for chronic right sided low back pain without sciatica patient not interested in SCS. continue PT and HEP as tolerated continue current medication regimen, tolerating well without side effects reporting mild functional improvement. will decrease tramadol to 50mg once daily PRN moderate to severe pain f/u after nerve block.
--- OUTSIDE RECORDS SUMMARY | 2023-08-12 09:18 | XMS_ITS | CCD ---
Author Organization [facility] Care Team Providers Care Special Needs Librarian Name Role Phone ALGHOEVELINEANI, MOHAMAD Attending Unavailable AICHHOLZ, ELECTRONICS COMPUTER MECHANIC GAYLA Primary Care Unavailable ALGHOTHANI, MOHAMAD Consulting Unavailable ALGHOTHANI, MOHAMAD Admitting Unavailable AICHHOLZ, ELECTRONICS COMPUTER MECHANIC GAYLA Primary Care Unavailable AICHHOLZ, ELECTRONICS COMPUTER MECHANIC GAYLA Admitting Unavailable AICHHOLZ, ELECTRONICS COMPUTER MECHANIC GAYLA Attending Unavailable AICHHOLZ, ELECTRONICS COMPUTER MECHANIC GAYLA Consulting Unavailable ALGHOTHANI, MOHAMAD Attending Unavailable AICHHOLZ, ELECTRONICS COMPUTER MECHANIC GAYLA Primary Care Unavailable ALGHOTHANI, MOHAMAD Consulting Unavailable ALGHOTHANI, MOHAMAD Admitting Unavailable ALGHOTHANI, MOHAMAD Attending Unavailable AICHHOLZ, ELECTRONICS COMPUTER MECHANIC GAYLA Primary Care Unavailable ALGHOTHANI, MOHAMAD Consulting Unavailable ALGHOTHANI, MOHAMAD Admitting Unavailable ALEX, INA Attending Unavailable ALEX, INA Admitting Unavailable ALEX, INA Consulting Unavailable AICHHOLZ, ELECTRONICS COMPUTER MECHANIC GAYLA Primary Care Unavailable AICHHOLZ, ELECTRONICS COMPUTER MECHANIC GAYLA Admitting Unavailable AICHHOLZ, ELECTRONICS COMPUTER MECHANIC GAYLA Attending Unavailable AICHHOLZ, ELECTRONICS COMPUTER MECHANIC GAYLA Consulting Unavailable AICHHOLZ, ELECTRONICS COMPUTER MECHANIC GAYLA Primary Care Unavailable AICHHOLZ, ELECTRONICS COMPUTER MECHANIC GAYLA Admitting Unavailable AICHHOLZ, ELECTRONICS COMPUTER MECHANIC GAYLA Attending Unavailable AICHHOLZ, ELECTRONICS COMPUTER MECHANIC GAYLA Consulting Unavailable AICHHOLZ, ELECTRONICS COMPUTER MECHANIC GAYLA Primary Care Unavailable ALEX, INA Attending Unavailable ALEX, INA Attending Unavailable DNATE HAND Attending Unavailable Aichholz SALES SOLUTIONS REPRESENTATIVE, Gayla Unavailable Pancho BOWIE, Jim Primary Care Provider Dasha Waggoner PA-C Attending Unavailab rose Snider [...] Dasha Pedro Attending Unavailab le Edilson PA-C, aDsha Pedro Attending Unavailab le Edilson PA-C, Dasha Pedro Attending Unavailab le Edilson PA-C, Dasha Pedro Attending Unavailab le Unavailable, Physician Primary Care Unavailab le Edilson PA-C, Dasha Pedro Attending Unavailab rose Snider III, MD, Delfino Freeman Attending U marthaailable Tylor KAMARA MD, Delfino Freeman Attending U navailable Tylor KAMARA MD, Delfino Freeman Attending U navailable Giivánitis , Lara Amos Attending Unavailable Gieditis , Andjeanne Amos Attending Unavailable Gieditis , Andrius Amos Attending Unavailable Gieditis , Andjeanne Amos Attending Unavailable Edilson PA-C, Dasha Pedro Attending Unavailab le AICHHOLGAYLA Arevalo Attending Unavailable AICHHOLGAYLA Arevalo Attending Unavailable JOANNAHGAYLA LEAHY Attending Unavailable Allergies Allergy Classification Reported Allergen(s) Allergy Type Date of Onset Reaction(s) Facility (3 sources) pregabalin; Translations: [PREGABALIN] Drug Allergy 3 [facility] Repository (1 source) No Known Medication Allergies; Translations: [No Known Medication Allergies] Propensity to adverse reactions to drug (disorder) [facility] Repository Medications Current Medications Medication Drug Class(es) [...] oral solution (2 sources) alpha-Adrenergic Agonist, Uncompetitive Q-qvlkyi-K-aspartat e Receptor Antagonist, Sigma-1 Agonist Start: 04-07-2023 [...] She has recently undergone an L5-S1 transforaminal SVILTANA 05/10/2023 by [facility] pain management which did give her approximately 2 to 3 weeks of incomplete benefit. She is planned for bilateral sacroiliac joint injections in the near future. The patient has discontinued her LSO brace that continues her electromagnetic stimulator 8 hours/day. Recent imaging (provider interpretation): Lumbar flexion/extension x-rays 04/30/2023 at [facility] reveals straightening of lumbar lordosis. Evidence of L3-5 posterior spinal fusion with instrumentation and interbody fusion L4-5. No evidence of hardware fracture or pullout. Patient found to have degenerative disc disease L2-3 and L5-S1. There is slight retrolisthesis L2-3 as well as unchanged anterior listhesis at her surgerized L4-5 segment. No evidence of dynamic instability. CT lumbar spine 02/03/2023 at [facility] reveals evidence of L3-5 posterior spinal [...] imaging. CT lumbar spine 10/14/2022 at [facility] reveals evidence of L3-5 decompression and [...] which c (more content not included)... Normal [facility] INFLUENZA A AND B AGon 0 04-08-2023 INFLUENZA VIRUS A ANTIGEN Positive Abnormal [facility] Comment on above: NOTE: Live attenuate d influenza vaccine viruses can cause a positive result for a rapid influenza diagnostic test if administered up to 7 days prior to rapid testing. INFLUENZA VIRUS B ANTIGEN Negative [facility] Comment on above: Negative for Flu B p rotein antigen. Infection due to Flu B cannot be ruled out. Flu B antigen in the sample may be below the detection limit of the test. Interpretation and review of laboratory results Abnormal [facility] 36on 03-19-2023 36 Please let her know her labs showed normal kidney function. Can continue lisinopril. Thank you Normal [facility] Telephoneon 03-19-2023 Telephone [id number] James López 1960 F Date Provider [facility] Family History Problem Relation Age of Onset Other Mother Heart attack Father Other Father Other Father Other Maternal Grandmother Family Status - Relation Status Age at Mother Father Maternal Grandmother Normal [facility] Neurosurgery Office/Clinic N oteon 02-08-2023 Neurosurgery [...] tizanidine as provided by pain management ([facility] pain management) only as needed and has not yet returned to NSAID medication. She continues to utilize nicotine and understands the deleterious effects of nicotine on her overall health and bony arthrodesis. Recent imaging (provider interpretation): CT lumbar spine 02/03/2023 at [facility] reveals evidence of L3-5 posterior spinal [...] imaging. CT lumbar spine 10/14/2022 at [facility] reveals evidence of L3-5 decompression and [...] bladder inc (more content not included)... Normal [facility] Office Visiton 01-19-2023 Follow-up visit [id number] James López 1960 F Date Provider Department Center 01/19/2023 DANTE BAIG CARD Carlos Alberto Ramsay Family History Problem Relation Age of Onset Other Mother Heart attack Father Other Father Other Father Other Maternal Grandmother Family Status - Relation Status Age at Mother Father Maternal Grandmother Level of Service:92641 DC OFFICE/OUTPATIENT ESTABLISHED LOW MDM 20-29 MIN Reason for Visit and Comments: Follow-up [887210] Hypertension [753285] Normal [facility] Neurosurgery Office/Clinic N zain 12-22-2022 Neurosurgery [...] times per week. She follows with [facility] pain management which is a transition from [facility] pain management group. She continues to smoke [...] imaging. CT lumbar spine 10/14/2022 at [facility] reveals evidence of L3-5 decompression and [...] demonstrates normal respiratory effort She presents in [facility] cinch lock brace with proper fit and alignment. This was removed at the time of today's visit for incision evaluation. Lumbosacral incision appears well-healed and without erythema, edema, drainage or warmth. She notes mild tenderness (more content not included)... Normal [facility] Neurosurgery Office/Clinic N zain 11-26-2022 Neurosurgery Office/Clinic [...] she recently transferred pain management care from [facility] to [facility]. Per the patient, they eventually would like her to initiate hot water physical therapy though only after receiving clearance from this office. Recent imaging (provider interpretation): CT lumbar spine 10/14/2022 at [facility] reveals evidence of L3-5 decompression and [...] demonstrates normal respiratory effort [facility] and [...] lower extre (more content not included)... Normal [facility] Neurosurgery Office/Clinic N zain 10-15-2022 Neurosurgery Office/Clinic [...] interpretation): CT lumbar spine 10/14/2022 at [facility] reveals evidence of L3-5 decompression and [...] Lumbar w/o (more content not included)... Normal [facility] Provider Letteron 10-15-2022 Provider Letter [facility] [address], [phone] [id number] Date: 10/15/2022 17:05:57 To Whom It May Concern: This is to verify that Rene Stephan Ceballos was under our care on 10/15/2022 16:00:00. Stated patient underwent an L3-5 posterior spinal fusion on 08/21/22 with instrumentation utilizing Medtronic osteogrip titanium screws. If you have any questions or concerns please call our office at [phone]. Thank you, Dasha Waggoner PA-C Normal [facility] Neurosurgery Office/Clinic N oteon 09-16-2022 Neurosurgery Office/Clinic [...] postoperative Lovenox dosing as recommended by her general production worker for strong family history of blood [...] and manner are appropriate. She presents in [facility] brace which was removed at the time [...] No redness (more content not included)... Normal [facility] Inpatient Clinical Summaryon 08-24-2022 Inpatient Clinical Summary [facility] [address] [place] [address] [address] Clinical Summary Person Information Name: Stephan López Age: 62 Years : 1960 Sex: Female PCP: Marital Status: Phone: PCP: Race: White Ethnicity: Not or Language: Senegalese Visit Id: Visit Reason: Speciality: Acuity: Enc Type: Inpatient Med Service: Surgery Arrival: 08/21/2022 06:28:12 Discharge: Dispo Type: Address: [facility] [id number] Diagnosis: 1:Lumbar stenosis with neurogenic claudication; 2:Spondylolisthesis, [...] range between ( 27.2 and 40.8 ) [place] Auto: 8.9 % -- Normal range between [...] range between ( 36.0 and 46.0 ) [place] Absolute: 1.8 x10 MCH: 31.8 pg -- [...] [facility] New Medications [id number], [address], [place] [id number], [phone] ascorbic acid (ascorbic acid 500 mg oral [...] magnesium hydroxi (more content not included)... Normal [facility] Neurosurgery Progress Noteon 08-24-2022 Neurosurgery Progress Note [...] Date: 08/27/22 7:59:00 EDT, Dispense From Location: Vibcxvl-ESO-9P, Prophylaxis- Pre/Post-Op, 08/24/22 7:40:00 EDT scopolamine, 1 patches, TD, Film-ER, q72hr, First Dose: 08/24/22 7:40:00 EDT, Dispense From Location: [facility], 08/24/22 7:40:00 EDT traMADol, 100 mg, Oral, Tab, q4hr, PRN severe pain [7-10 on pain scale], First Dose: 08/23/22 9:04:00 EDT, Dispense From Location: Uhxghax-WKW-0K, 08/23/22 9:04:00 EDT traMADol, 50 mg, Oral, Tab, q4hr, PRN moderate pain [4-6 on pain scale], First Dose: 08/23/22 9:04:00 EDT, Dispense From Location: Vetsxgy-SIA-7L, 08/23/22 9:04:00 EDT Surgical Drains Subjective: Patient [...] MD, Delfino Freeman 08/24/22 07:45 EDT Normal [facility] Neurosurgery Progress Noteon 08-23-2022 Neurosurgery Progress Note [...] Dose: 08/23/22 9:04:00 EDT, Dispense From Location: Qgktpox-LEZ-8O, 08/23/22 9:04:00 EDT traMADol, 50 mg, Oral, Tab, q4hr, PRN moderate pain [4-6 on pain scale], First Dose: 08/23/22 9:04:00 EDT, Dispense From Location: Uhaeeml-IZF-8V, 08/23/22 9:04:00 EDT Surgical Drains Subjective: Patient [...] Snider III, MD 08/23/22 09:14 EDT Normal [facility] POC Glucose Randomon 023 Glucose [Mass/Vol] 114 mg/dL High 70-99 [facility] Comment on above: Performed By: #### C [id number] ####[address] [address] Glucose [Mass/Vol] 114 mg/dL High 70-99 [facility] Comment on above: Performed By: #### . Automated Diff #### [facility] [address] [place] [address] .eGFRon 08-22-2022 GFR/1.73 sq M.predicted MDRD (S/P/Bld) [Vol rate/Area] mL/min/{1.73_m2} Normal >=60 [facility] Comment on above: Result Comment: [facility] have implemented the eGFR calculation [...] = years Performed By: #### E GFR ####[facility] [place] [address] Basic Metabolic Profileon Anion gap [Moles/Vol] 12 mmol/L Normal 7-17 [facility] Comment on above: Performed By: #### . Automated Diff #### [facility] [address] [place] [address] Calcium [Mass/Vol] 8.5 mg/dL Normal 8.5-10.3 [facility] Comment on above: Performed By: #### . Automated Diff #### [facility] [address] [place] [address] Chloride [Moles/Vol] 101 mmol/L Normal 98-110 [facility] Comment on above: Performed By: #### . Automated Diff #### [address] [address] CO2 [Moles/Vol] 25 mmol/L Normal 22-32 [facility] Comment on above: Performed By: #### . Automated Diff #### [address] [address] Creatinine [Mass/Vol] 0.76 mg/dL Normal 0.44-1.03 [facility] Comment on above: Performed By: #### . Automated Diff #### [address] [address] Glucose [Mass/Vol] 116 mg/dL High 70-99 [facility] Comment on above: Performed By: #### . Automated Diff #### [address] [address] Potassium [Moles/Vol] 4.2 mmol/L Normal 3.4-4.8 [facility] Comment on above: Performed By: #### . Automated Diff #### [address] [address] Sodium [Moles/Vol] 134 mmol/L Normal 133-142 [facility] Comment on above: Performed By: #### . Automated Diff #### [address] [address] Urea nitrogen [Mass/Vol] 10 mg/dL Normal 8-26 [facility] Comment on above: Performed By: #### . Automated Diff #### [address] [address] Urea nitrogen/Creatinine [Mass ratio] 13.2 mg/mg Normal 10.0-20.0 [facility] Comment on above: Performed By: #### . Automated Diff #### [address] [address] CBC w/ Diffon 08-22-2022 Erythrocyte distribution width (RBC) [Ratio] 13.5 % Normal 11.6-14.8 [facility] Comment on above: Performed By: #### C BC ####[address] [address] Hematocrit (Bld) [Volume fraction] 36.3 % Normal 36.0-46.0 [facility] Comment on above: Performed By: #### C BC ####[address] [address] Hemoglobin (Bld) [Mass/Vol] 12.2 g/dL Normal 12.0-16.0 [facility] Comment on above: Performed By: #### C BC ####[address] [address] MCH (RBC) [Entitic mass] 31.8 pg Normal 27.0-35.0 [facility] Comment on above: Performed By: #### C BC ####[address] [address] MCHC 33.5 % Normal 31.0-37.0 [facility] Comment on above: Performed By: #### C BC ####[address] [address] MCV (RBC) [Entitic vol] 94.9 fL Normal 80.0-100.0 [facility] Comment on above: Performed By: #### C BC ####[address] [address] Platelet 282 x10*3/mcL Normal 150-450 [facility] Comment on above: Performed By: #### C BC ####[address] [address] Platelet mean volume (Bld) [Entitic vol] 9.0 fL Normal 6.7-10.6 [facility] Comment on above: Performed By: #### C BC ####[address] [address] RBC 3.82 x10*6/mcL Normal 3.80-5.20 [facility] Comment on above: Performed By: #### C BC ####[address] [address] WBC 20.4 x10*3/mcL High 4.5-11.0 [facility] Comment on above: Performed By: #### C BC ####[address] [address] Diff Autoon 08-22-2022 Baso Absolute 0.1 x10*3/mcL Normal 0.0-0.2 [facility] Comment on above: Performed By: #### . Automated Diff ####[address] [address] Basophils/100 WBC (Bld) 0.4 % Normal 0.0-1.5 [facility] Comment on above: Performed By: #### . Automated Diff ####[address] [address] Eos Absolute 0.0 x10*3/mcL Normal 0.0-0.4 [facility] Comment on above: Performed By: #### . Automated Diff ####[address] [address] Eosinophils/100 WBC (Bld) 0.1 % Normal 0.0-5.4 [facility] Comment on above: Performed By: #### . Automated Diff ####[address] [address] Lymph Absolute 2.4 x10*3/mcL Normal 1.0-4.[address] [facility] Comment on above: Performed By: #### . Automated Diff ####[address] [address] Lymphocytes/100 WBC (Bld) 11.6 % Low 27.2-40.8 [facility] Comment on above: Performed By: #### . Automated Diff ####[address] [address] [place] Absolute 1.8 x10*3/mcL High 0.1-1.1 [facility] Comment on above: Performed By: #### . Automated Diff ####[address] [address] Monocytes/100 WBC (Bld) 8.9 % Normal 3.7-11.9 [facility] Comment on above: Performed By: #### . Automated Diff ####[address] [address] Neutro Absolute 16.1 x10*3/mcL High 1.8-7.7 [facility] Comment on above: Performed By: #### . Automated Diff ####[address] [address] Neutro Auto 79.0 % High 47.2-70.8 [facility] Comment on above: Performed By: #### . Automated Diff ####[address] [address] Neurosurgery Progress Noteon 08-22-2022 Neurosurgery Progress Note [...] mg, Oral, qAM baclofen, 5 mg, Oral, [id number] Times bisacodyl, 10 mg= 1 supp, Rectal, [...] Dose: 08/21/22 17:00:00 EDT, Dispense From Location: [address], 08/21/22 16:37:00 EDT baclofen, 5 mg, Oral, Tab, [id number] Times, First Dose: 08/21/22 22:00:00 EDT, Dispense From Location: [address], 08/21/22 16:37:00 EDT bisacodyl, 10 mg, Rectal, Supp, Once, First Dose: 08/22/22 6:59:00 EDT, Stop Date: 08/22/22 6:59:00 EDT, Dispense From Location: [address], 08/22/22 6:59:00 EDT bisacodyl, 10 mg, Rectal, Supp, Daily, PRN constipation, First Dose: 08/22/22 9:00:00 EDT, Dispense From Location: [address], 08/22/22 9:00:00 EDT ceFAZolin, 2 g, IV Piggyback, Soln-IV, q8hr, infuse over 30 minutes, First Dose: 08/21/22 20:00:00 EDT, Dispense From Location: [address], Prophylaxis- Pre/Post-Op, 08/21/22 20:00:00 EDT docusate, 100 mg, Oral, Cap, BID, First Dose: 08/21/22 21:00:00 EDT, Dispense From Location: [address], 08/21/22 16:37:00 EDT ferrous sulfate, 325 mg, Oral, Tab, BID, First Dose: 08/21/22 21:00:00 EDT, Dispense From Location: [address], 08/21/22 16:37:00 EDT hydrALAZINE, 10 mg, IV Push, Injection, q10min, PRN hypertension, First Dose: 08/21/22 16:37:00 EDT, Dispense From Location: [address], 08/21/22 16:37:00 EDT labetalol, 10 mg, IV Push, Injection, q10min, PRN hypertension, First Dose: 08/21/22 16:37:00 EDT, Dispense From Location: [address], 08/21/22 16:37:00 EDT magnesium hydroxide, 30 mL, Oral, Susp, TID, First Dose: 08/21/22 22:00:00 EDT, Dispense From Location: [address], 08/21/22 16:37:00 EDT multivitamin with minerals, 1 tabs, Oral, Tab, Daily, First Dose: 08/22/22 9:00:00 EDT, Dispense From Location: [address], 08/21/22 16:37:00 EDT ondansetron, 4 mg, IV Push, Injection, q6hr, PRN nausea/vomiting, First Dose: 08/21/22 15:08:00 EDT, Dispense From Location: [facility], 08/21/22 15:08:00 EDT oxyCODONE-acetaminophe n, 1 tabs, Oral, Tab, q4hr, PRN moderate pain [4-6 on pain scale], First Dose: 08/21/22 16:37:00 EDT, Dispense From Location: [address], 08/21/22 16:37:00 EDT oxyCODONE-acetaminophe n, 2 tabs, Oral, Tab, q4hr, PRN severe pain [7-10 on pain scale], First Dose: 08/21/22 16:37:00 EDT, Dispense From Location: [address], 08/21/22 16:37:00 EDT sodium chloride, 10 mL, IV Push, Injection, As Indicated, PRN flush, First Dose: 08/21/22 16:37:00 EDT, Dispense From Location: [address], 08/21/22 16:37:00 EDT ADA Diet Ambulate Basic Metabolic Profile Blood Glucose Monitoring POC Cinch Loc Brace (EXOS Brace) Consult to Health Educator Incentive Spirometry Nursing to Encourage Intake and Output Mechanical Compression Device Neurological Checks Notify Provider Occupational Therapy Evaluation and Treatment Inpatient Oxygen Therapy Peripheral IV Insert and Maintain Physical Therapy Evaluation and Treatment Inpatient Pulse Oximetry Continuous Pulse Oximetry Continuous Resuscitation Status Straight Catheter Straight (more content not included)... Normal [facility] POC Glucose Randomon 023 Glucose [Mass/Vol] 124 mg/dL High 70-99 [facility] Comment on above: Performed By: #### . Automated Diff #### [facility] [address] [place] [address] Glucose [Mass/Vol] 120 mg/dL High 70-99 [facility] Comment on above: Performed By: #### C [id number] ####[address] [address] Neurosurgery Progress Noteon 08-21-2022 Neurosurgery Progress Note [...] ceFAZolin, 2 g= 50 mL, IV Piggyback, Machine Skiver Dilaudid, 0.5 mg= 0.5 mL, IV Push, q15min, PRN diphenhydrAMINE, 25 mg= 0.5 mL, IV Push, q6hr, PRN fentaNYL, 50 mcg= 1 mL, IV Push, q5min, PRN fentaNYL PROJECT MANAGEMENT MANAGER, 300 mcg= 30 mL, IV PROJECT MANAGEMENT MANAGER, [id number] Times, PRN lisinopril, 2.5 mg, Oral, Daily [...] Dose: 08/21/22 9:00:00 EDT, Dispense From Location: [employer], 08/21/22 6:35:00 EDT ceFAZolin, 2 g, IV Piggyback, Soln-IV, Machine Skiver, infuse over 30 minutes, First Dose: 08/21/22 0:15:00 EDT, Dispense From Location: Cln[facility]a-RPO-PC, Prophylaxis- Pre/Post-Op, 08/21/22 0:15:00 EDT diphenhydrAMINE, 25 mg, IV Push, Injection, q6hr, PRN itching, First Dose: 08/21/22 15:08:00 EDT, Dispense From Location: [facility]EJD[facility]IP, 08/21/22 15:08:00 EDT fentaNYL, 300 30 mcg mL, IV PROJECT MANAGEMENT MANAGER, Loading Dose (mcg): 25, PROJECT MANAGEMENT MANAGER Dose (mcg): 10, Lockout Interval (min): 8, Continuous Dose (mcg/hr): 25, 4-Hour Limit (mcg): 300, 2.5 mL/hr, pain PRN, Start Date: 08/21/22 15:08:00 EDT, Dispense From Location: [facility], 07/25... lisinopril, 2.5 mg, Oral, Tab, Daily, First Dose: 08/21/22 9:00:00 EDT, Dispense From Location: [employer], 08/21/22 6:35:00 EDT metFORMIN, 500 mg, Oral, Tab, BID, First Dose: 08/21/22 9:00:00 EDT, Dispense From Location: [employer], 08/21/22 6:35:00 EDT nalbuphine, 2.5 mg, IV Push, Injection, q6hr, PRN refractory itching, First Dose: 08/21/22 15:08:00 EDT, Dispense From Location: [facility], 08/21/22 15:08:00 EDT omeprazole, 40 mg, Oral, Cap-DR, Daily, First Dose: 08/21/22 7:00:00 EDT, Dispense From Location: [employer], 08/21/22 6:35:00 EDT ondansetron, 4 mg, IV Push, Injection, q6hr, PRN nausea/vomiting, First Dose: 08/21/22 15:08:00 EDT, Dispense From Location: [employer], 08/21/22 15:08:00 EDT pregabalin, 100 mg, Oral, Cap, BID, First Dose: 08/21/22 9:00:00 EDT, Dispense From Location: [facility], 08/21/22 6:35:00 EDT Admit to Inpatient [...] MD, Delfino Freeman 08/21/22 15:45 EDT Normal [facility] Operative Reporton 3 Operative Report Indication for [...] cyst left L4-5; computer-assisted hardware placement using [employer]alth station and [employer] O-arm Surgeon(s) Delfino Snider III, MD (Surgeon - Primary) Pilot [employer] Dasha Waggoner PA-C (Dry Pan Charger) Anesthesia General Opal BOWIE, Mauilk Padron (Bag Presser) Koko Eugene (Provider) Estimated Blood Loss 300.0 [...] Patient is carefully turned onto [facility] operating room table and head and [...] spinous pro (more content not included)... Normal [facility] POC Glucose Randomon 023 Glucose [Mass/Vol] 152 mg/dL High 70-99 [facility] Comment on above: Performed By: #### . Automated Diff #### [facility] [address] [place] [address] Glucose [Mass/Vol] 206 mg/dL High 70-99 [facility] Comment on above: Performed By: #### C [id number] ####[facility] [place] [address] Glucose [Mass/Vol] 179 mg/dL High 70-99 [facility] Comment on above: Performed By: #### C [id number] ####[address] [address] XR Spine Lumbosacral 4 Views + in [...] Electronically Signed in Other Vendor System) Normal [facility] Provider Letteron 08-11-2022 Provider Letter Gayla Martinez CNP [address] [place] [address] Re: Stephan López Date of Visit: 08/10/2022 Dear Gayla Martinez CNP, Let me know if you have any questions or concerns. Sincerely, Lin Cintron Providers: [CC Letter Providers Please see attached lab results The following document(s) were included in the letter: August 10, 2022 13:56:47 EDT - (08/10/2022) Reminder Message Normal [facility] .UA Microscp Aon 08-10-2022 UA Hyline Cast Qual 3-5 Normal Negative [facility] Comment on above: Performed By: #### . Automated Diff #### [place] [address] UA Mucus Present Abnormal Absent [facility] Comment on above: Performed By: #### . Automated Diff #### [place] [address] UA RBC Quant 0 /HPF Normal 0-5 [facility] Comment on above: Performed By: #### . Automated Diff #### [place] [address] UA Squepi Cells Quant 2 /HPF Normal 0-29 [facility] Comment on above: Performed By: #### . Automated Diff #### [place] [id number] UA WBC Quant 0 /HPF Normal 0-5 [facility] Comment on above: Performed By: #### . Automated Diff #### [place] [address] .eGFRon 08-10-2022 GFR/1.73 sq M.predicted MDRD (S/P/Bld) [Vol rate/Area] mL/min/{1.73_m2} Normal >=60 [facility] Comment on above: Result Comment: [facility] have implemented the eGFR calculation [...] = years Performed By: #### E GFR ####[address] [address] ABO/Rhon 08-10-2022 ABO/Rh ABO/Rh: O NEG Normal [facility] Comment on above: Performed By: #### A BORH ####[address] [address] ABSC Autoon 08-10-2022 ABSC Auto Negative Normal [facility] Comment on above: Performed By: #### A SA ####[address] [address] CBC w/ Diffon 08-10-2022 Erythrocyte distribution width (RBC) [Ratio] 13.3 % Normal 11.6-14.8 [facility] Comment on above: Performed By: #### C BC ####[address] [address] Hematocrit (Bld) [Volume fraction] 44.0 % Normal 36.0-46.0 [facility] Comment on above: Performed By: #### C BC ####[address] [address] Hemoglobin (Bld) [Mass/Vol] 15.0 g/dL Normal 12.0-16.0 [facility] Comment on above: Performed By: #### C BC ####[address] [address] MCH (RBC) [Entitic mass] 32.6 pg Normal 27.0-35.0 [facility] Comment on above: Performed By: #### C BC ####[address] [address] MCHC 34.0 % Normal 31.0-37.0 [facility] Comment on above: Performed By: #### C BC ####[place] [id number] MCV (RBC) [Entitic vol] 95.8 fL Normal 80.0-100.0 [facility] Comment on above: Performed By: #### C BC ####[address] [address] Platelet 298 x10*3/mcL Normal 150-350 [facility] Comment on above: Performed By: #### C BC ####[address] [address] Platelet mean volume (Bld) [Entitic vol] 10.1 fL Normal 6.7-10.6 [facility] Comment on above: Performed By: #### C BC ####[address] [address] RBC 4.59 x10*6/mcL Normal 3.80-5.20 [facility] Comment on above: Performed By: #### C BC ####[address] [address] WBC 12.9 x10*3/mcL High 4.5-11.0 [facility] Comment on above: Performed By: #### C BC ####[address] [address] CMPon 08-10-2022 Albumin [Mass/Vol] 4.4 g/dL Normal 3.2-4.9 [facility] Comment on above: Performed By: #### . Automated Diff #### [address] [address] Albumin/Globulin [Mass ratio] 1.4 {ratio} Normal 1.1-2.2 [facility] Comment on above: Performed By: #### . Automated Diff #### [address] [address] Alk Phos 75 IU/L Normal 32-91 [facility] Comment on above: Performed By: #### . Automated Diff #### [address] [address] ALT [Catalytic activity/Vol] 14 U/L Normal 14-54 [facility] Comment on above: Performed By: #### . Automated Diff #### [address] [address] Anion gap [Moles/Vol] 13 mmol/L Normal 7-17 [facility] Comment on above: Performed By: #### . Automated Diff #### [address] [address] AST [Catalytic activity/Vol] 20 U/L Normal 15-41 [facility] Comment on above: Performed By: #### . Automated Diff #### [address] [address] Bili Total 0.6 mg/dL Normal 0.3-1.2 [facility] Comment on above: Performed By: #### . Automated Diff #### [address] [address] Calcium [Mass/Vol] 9.3 mg/dL Normal 8.5-10.3 [facility] Comment on above: Performed By: #### . Automated Diff #### [address] [address] Chloride [Moles/Vol] 103 mmol/L Normal 98-110 [facility] Comment on above: Performed By: #### . Automated Diff #### [facility] [address] [place] [address] CO2 [Moles/Vol] 24 mmol/L Normal 22-32 [facility] Comment on above: Performed By: #### . Automated Diff #### [address] [address] Creatinine [Mass/Vol] 0.85 mg/dL Normal 0.44-1.03 [facility] Comment on above: Performed By: #### . Automated Diff #### [address] [address] Glucose [Mass/Vol] 108 mg/dL High 70-99 [facility] Comment on above: Performed By: #### . Automated Diff #### [address] [address] Potassium [Moles/Vol] 3.7 mmol/L Normal 3.4-4.8 [facility] Comment on above: Performed By: #### . Automated Diff #### [address] [address] Protein [Mass/Vol] 7.5 g/dL Normal 6.5-8.1 [facility] Comment on above: Performed By: #### . Automated Diff #### [address] [address] Sodium [Moles/Vol] 136 mmol/L Normal 133-142 [facility] Comment on above: Performed By: #### . Automated Diff #### [address] [address] Urea nitrogen [Mass/Vol] 15 mg/dL Normal 8-26 [facility] Comment on above: Performed By: #### . Automated Diff #### [address] [address] Urea nitrogen/Creatinine [Mass ratio] 17.6 mg/mg Normal 10.0-20.0 [facility] Comment on above: Performed By: #### . Automated Diff #### [address] [address] Diff Autoon 08-10-2022 Baso Absolute 0.1 x10*3/mcL Normal 0.0-0.2 [facility] Comment on above: Performed By: #### . Automated Diff #### [address] [address] Basophils/100 WBC (Bld) 0.4 % Normal 0.0-1.5 [facility] Comment on above: Performed By: #### . Automated Diff #### [address] [address] Eos Absolute 0.1 x10*3/mcL Normal 0.0-0.4 [facility] Comment on above: Performed By: #### . Automated Diff #### [address] [address] Eosinophils/100 WBC (Bld) 0.9 % Normal 0.0-5.4 [facility] Comment on above: Performed By: #### . Automated Diff #### [address] [address] Lymph Absolute 3.8 x10*3/mcL Normal 1.0-4.[address] [facility] Comment on above: Performed By: #### . Automated Diff #### [address] [address] Lymphocytes/100 WBC (Bld) 29.6 % Normal 27.2-40.8 [facility] Comment on above: Performed By: #### . Automated Diff #### [address] [address] [place] Absolute 0.8 x10*3/mcL Normal 0.1-1.1 [facility] Comment on above: Performed By: #### . Automated Diff #### [address] [address] Monocytes/100 WBC (Bld) 5.9 % Normal 3.7-11.9 [facility] Comment on above: Performed By: #### . Automated Diff #### [address] [address] Neutro Absolute 8.1 x10*3/mcL High 1.8-7.7 [facility] Comment on above: Performed By: #### . Automated Diff #### [address] [address] Neutro Auto 63.2 % Normal 47.2-70.8 [facility] Comment on above: Performed By: #### . Automated Diff #### [address] [address] HbA1c w/Rflx Fructosamineon 08-10-2022 Glucose [Mass/Vol] 128 mg/dL High 68-114 [facility] Comment on above: Result Comment: Math ematical Calc approx. The mean gluc equivalency of A1c Performed By: #### . Automated Diff #### [address] [address] Hgb A1c 6.1 % A1c High 4.0-5.6 [facility] Comment on above: Result Comment: Refe rence Range: 4.0 - 5.6 % Normal 5.7 - 6.4 % Pre-Diabetes > 6.5 % Diabetes Performed By: #### . Automated Diff #### [address] [address] PTon 08-10-2022 INR Coag (PPP) [Relative time] 1.0 {INR} Normal <=3.5 [facility] Comment on above: Result Comment: INR has no normal range. INR Therapeutic range is: 2.0-3.0 (AF, CVA, TIAs, DVT prophylaxis, acute DVT) 2.5-3.5 ([facility] heart valves, recurrent thrombosis/emboli) Performed By: #### . Automated Diff #### [address] [address] PT Coag (PPP) [Time] 10.7 s Normal 9.3-11.9 [facility] Comment on above: Performed By: #### . Automated Diff #### [address] [address] PTTon 08-10-2022 aPTT Coag (Bld) [Time] 20.9 s Normal 20.6-29.2 [facility] Comment on above: Performed By: #### P TT ####[address] [address] Provider Letteron 08-10-2022 Provider Letter Gayla Martinez CNP [address] [place] [address] Re: Stephan Rene Date of Visit: 08/10/2022 Dear Gayla Martinez CNP, Let me know if you have any questions or concerns. Sincerely, Lin Cintron Providers: [CC Letter Providers Please see attached lab results The following document(s) were included in the letter: August 10, 2022 13:04:48 EDT - (08/10/2022) Reminder Message Normal [facility] Provider Letter Gayla Martinez CNP [address] [place] [address] Re: Stephan López Date of Visit: 08/10/2022 Dear Gayla Martinez CNP, Let me know if you have any questions or concerns. Sincerely, Lin Cintron Providers: [CC Letter Providers Please see attached ECG results The following document(s) were included in the letter: August 10, 2022 13:05:57 EDT - (08/10/2022) Reminder Message Normal [facility] UA w Culture if Indon 2022 Color (U) Yellow Normal [facility] Comment on above: Performed By: #### U CI #### [place] [id number] Ketones Ql (U) Negative Normal Negative [facility] Comment on above: Performed By: #### U CI #### [address] [address] UA Blood Negative Normal Negative [facility] Comment on above: Performed By: #### U CI #### [place] [id number] UA Clarity Clear Normal [facility] Comment on above: Performed By: #### U CI #### [address] [address] UA Glucose Normal Normal Negative [facility] Comment on above: Performed By: #### U CI #### [address] [place] [address] UA Leukocyte Esterase Negative Normal Negative [facility] Comment on above: Performed By: #### U CI #### [address] [address] UA Nitrite Negative Normal Negative [facility] Comment on above: Performed By: #### U CI #### [address] [address] UA pH 5.0 Normal 4.5 - 7.8 [facility] Comment on above: Performed By: #### U CI #### [address] [address] UA Protein 10 mg/dL Normal Negative [facility] Comment on above: Performed By: #### U CI #### [address] [address] UA Source Clean Catch Normal [facility] Comment on above: Performed By: #### U CI #### [address] [address] UA Spec Grav 1.025 Normal 1.003-1.035 [facility] Comment on above: Performed By: #### U CI #### [address] [address] UA Urobilinogen Normal Normal 0.2 - 1.0 [facility] Comment on above: Performed By: #### U CI #### [address] [address] Urobilinogen (U) [Mass/Vol] Negative Normal Negative [facility] Comment on above: Performed By: #### U CI #### [address] [address] XR Chest 2 Viewson 3 XR Chest [...] Electronically Signed in Other Vendor System) Normal [facility] Neurosurgery Office/Clinic N oteon 07-23-2022 Neurosurgery Office/Clinic Note Chief Complaint Patient is being seen for a back follow up. History of Present Illness The patient is a pleasant 62-year-old right-handed female with history of osn-srkwttf-yamrhgdtw diabetes mellitus diagnosed in 2009, chronic nicotine [...] interpretation): MRI cervical spine 05/29/2022 at [facility] reveals multilevel degenerative disc disease, most [...] instability. MRI lumbar spine 04/29/2022 at [facility] reveals multilevel degenerative disc disease. Significant [...] there is (more content not included)... Normal [facility] Neurosurgery Office/Clinic Note Chief Complaint Patient is [...] Sibling. I (more content not included)... Normal [facility] Office Visiton 07-03-2022 Follow-up visit [id number] James López 1960 F Date Provider Department Center 07/03/2022 INA JONES [facility] Family History Problem Relation Age of Onset Other Mother Heart attack Father Other Father Other Father Other Maternal Grandmother Family Status - Relation Status Age at Mother Father Maternal Grandmother Level of Service:27268 DC OFFICE/OUTPATIENT ESTABLISHED LOW MDM 20-29 MIN Reason for Visit and Comments: Hypertension [043031] pericardial effusion [Other] Normal [facility] PROF CHEM 8 (BAS METB)on Anion gap [Moles/Vol] 12.9 mmol/L Normal [facility] Comment on above: Performed By: #### C BC #### [facility] [address] [place] [address] [address] Yariel Herrera Calcium [Mass/Vol] 9.0 mg/dL Normal 8.5-10.1 [facility] Comment on above: Performed By: #### C BC #### [facility] [address] [place] [address] [address] Yariel Herrera Chloride [Moles/Vol] 106 mmol/L Normal 98-107 [facility] Comment on above: Performed By: #### C BC #### [facility] [address] [place] [address] [address] Yariel Herrera CO2 [Moles/Vol] 28.3 mmol/L Normal 21.0-32.0 [facility] Comment on above: Performed By: #### C BC #### [facility] [address] [place] [address] [address] Yariel Herrera Creatinine [Mass/Vol] 0.81 mg/dL Normal 0.55-1.02 [facility] Comment on above: Performed By: #### C BC #### [facility] [address] [place] [address] [address] Yariel Herrera EGFR-AF [place]ER >60 Normal >=60 [facility] Comment on above: Performed By: #### C BC #### [facility] [address] [place] [address] Dr. Yariel Herrera EGFR-NON AF [place] >60 Normal >=60 [facility] Comment on above: Performed By: #### C BC #### [facility] [address] [place] [address] Dr. Yariel Herrera Glucose [Mass/Vol] 103 mg/dL Normal 74-106 [facility] Comment on above: Performed By: #### C BC #### [facility] [address] [place] [address] [address] Yariel Herrera Potassium [Moles/Vol] 4.2 mmol/L Normal 3.5-5.1 [facility] Comment on above: Performed By: #### C BC #### [facility] [address] [place] [address] Dr. Yariel Herrera Sodium [Moles/Vol] 143 mmol/L Normal 136-145 [facility] Comment on above: Performed By: #### C BC #### [facility] [address] [place] [address] [address] Yariel Herrera Urea nitrogen [Mass/Vol] 9.0 mg/dL Normal 7.0-18.0 [facility] Comment on above: Performed By: #### C BC #### [facility] [address] [place] [address] Dr. Yariel Herrera Urea nitrogen/Creatinine [Mass ratio] 11.1 mg/mg Normal [facility] Comment on above: Performed By: #### C #### [facility] [address] [place] [address] [address] Yariel Herrera 37on 06-10-2022 37 Start lisinopril 2.5 mg daily, Have labs/blood checked in 1 week for kidney function Monitor b/p at home 1-2 times/day and record on a log- bring with her to next visit. If you notice a dry, persistent cough- stop lisinopril and call office please. Normal [facility] Office Visiton 06-10-2022 Follow-up visit [id number] James Lóepz Lin 1960 F Date Provider Department Center 06/10/2022 INA JONES [facility] Family History Problem Relation Age of Onset Other Mother Heart attack Father Other Father Other Father Other Maternal Grandmother Family Status - Relation Status Age at Mother Father Maternal Grandmother Level of Service:41690 DC OFFICE/OUTPATIENT ESTABLISHED MOD MDM 30-39 MIN Normal [facility] ECHOCARDIO M/2D COMPLETEon 0 05-08-2022 ECHOCARDIO M/2D COMPLETE Patient: STEPHAN LÓPEZ. Exam Date: 05/08/2022 : 1960 Gender:F Ordering : CARL WILLIS Admission #: [id number] Family : GAURAV MARTINEZ [facility] Order #: [id number] CLICK HERE TO VIEW EXAM ECHOCARDIOGRAM REPORT [...] on 05/08/2022 at 14:20 Normal [facility] ABHINAV by IFAon 01-08-2022 Antinuclear Antibodies, IFA Negative Normal [facility] Comment on above: Result Comment: Nega tive <1:80 Borderline 1:80 Positive >1:80 ICAP nomenclature: AC-0 For more information about Hep-2 cell patterns use ANApatterns.org, the official website for the International Consensus on Antinuclear Antibody (ABHINAV) Patterns (ICAP). Performed By: #### A NAIFA #### [facility] [address] [place] [address] Dr. Yariel Herrera CBC AUTO DIFFon 01-05-2022 BASO # 0.1 103/ul Normal 0.0-0.1 [facility] Comment on above: Performed By: #### C BC #### [facility] [address] [place] [address] [address] Yariel Herrera Basophils/100 WBC (Bld) 0.6 % Normal 0.2-2.0 [facility] Comment on above: Performed By: #### C BC #### [facility] [address] [place] [address] [address] Yariel Herrera EO # 0.2 103/ul Normal 0.0-0.7 [facility] Comment on above: Performed By: #### C BC #### [facility] [address] [place] [address] Dr. Yariel Herrera Eosinophils/100 WBC (Bld) 1.4 % Normal 0.9-7.0 [facility] Comment on above: Performed By: #### C BC #### [facility] [address] [place] [address] Dr. Yariel Herrera Erythrocyte distribution width (RBC) [Ratio] 13.6 % Normal 11.0-15.0 [facility] Comment on above: Performed By: #### C BC #### [facility] [address] [place] [address] Dr. Yariel Herrera Hematocrit (Bld) [Volume fraction] 46.6 % Normal 36.0-48.0 [facility] Comment on above: Performed By: #### C BC #### [facility] [address] [place] [address] Dr. Yariel Herrera Hemoglobin (Bld) [Mass/Vol] 15.4 g/dL Normal 12.0-16.0 [facility] Comment on above: Performed By: #### C BC #### [facility] [address] [place] [address] Dr. Yariel Herrera IG # 0.03 10e3/ul Normal 0.00-0.03 [facility] Comment on above: Performed By: #### C BC #### [facility] [address] [place] [address] Dr. Yariel Herrera IG % 0.2 % Normal 0.0-0.5 [facility] Comment on above: Performed By: #### C BC #### [facility] [address] [place] [address] Dr. Yariel Herrera LYMPH # 4.2 103/ul Critically high 1.2-3.8 [facility] Comment on above: Performed By: #### C BC #### [facility] [address] [place] [address] Dr. Yariel Herrera Lymphocytes/100 WBC (Bld) 31.3 % Normal 20.5-60.0 [facility] Comment on above: Performed By: #### C BC #### [facility] [address] [place] [address] Dr. Yariel Herrera MANUAL DIFF REQ NO Normal [facility] Comment on above: Performed By: #### C BC #### [facility] [address] [place] [address] Dr. Yariel Herrera MCH (RBC) [Entitic mass] 31.6 pg Normal 26.7-34.0 [facility] Comment on above: Performed By: #### C BC #### [facility] [address] [place] [address] Dr. Yariel Herrera MCHC (RBC) [Mass/Vol] 33.0 g/dL Normal 29.9-35.2 [facility] Comment on above: Performed By: #### C BC #### [facility] [address] [place] [address] Dr. Yariel Herrera MCV (RBC) [Entitic vol] 95.7 fL Normal 81.0-99.0 [facility] Comment on above: Performed By: #### C BC #### [facility] [address] [place] [address] Dr. Yariel Herrera MONO # 0.9 103/ul Critically high 0.3-0.8 [facility] Comment on above: Performed By: #### C BC #### [facility] [address] [place] [address] Dr. Yariel Herrera Monocytes/100 WBC (Bld) 6.8 % Normal 1.7-12.0 [facility] Comment on above: Performed By: #### C BC #### [facility] [address] [place] [address] Dr. Yariel Herrera NEUT # 8.0 103/ul Critically high 1.4-6.5 [facility] Comment on above: Performed By: #### C BC #### [facility] [address] [place] [address] Dr. Yariel Herrera Neutrophils/100 WBC (Bld) 59.7 % Normal 43.0-75.0 [facility] Comment on above: Performed By: #### C BC #### [facility] [address] [place] [address] Dr. Yariel Herrera Platelet mean volume (Bld) [Entitic vol] 10.7 fL Normal 9.5-13.5 [facility] Comment on above: Performed By: #### C BC #### [facility] [address] [place] [address] Dr. Yariel Herrera PLT 340 103/ul Normal 150-450 [facility] Comment on above: Performed By: #### C BC #### [facility] [address] [place] [address] Dr. Yariel Herrera RBC 4.87 106/ul Normal 4.20-5.40 [facility] Comment on above: Performed By: #### C BC #### [facility] [address] [place] [address] Dr. Yariel Herrera WBC 13.4 103/ul Critically high 4.0-11.0 [facility] Comment on above: Performed By: #### C BC #### [facility] [address] [place] [address] Dr. Yariel Herrera FREE T4on 01-05-2022 Free T4 [Mass/Vol] 1.06 ng/dL Normal 0.76-1.46 [facility] Comment on above: Performed By: #### C BC #### [facility] [address] [place] [address] Dr. Yariel Herrera PROF 14(COMP METB)on 022 Albumin [Mass/Vol] 3.9 g/dL Normal 3.4-5.0 [facility] Comment on above: Performed By: #### C MP, TSH #### [facility] [address] [place] [address] Dr. Yariel Herrera Albumin/Globulin [Mass ratio] 1.1 {ratio} Normal [facility] Comment on above: Performed By: #### C MP, TSH #### [facility] [address] [place] [address] [address] Yariel Herrera ALP [Catalytic activity/Vol] 99 U/L Normal 46-116 [facility] Comment on above: Performed By: #### C MP, TSH #### [facility] [address] [place] [address] [address] Yariel Herrera ALT [Catalytic activity/Vol] 17 U/L Normal 14-59 [facility] Comment on above: Performed By: #### C MP, TSH #### [facility] [address] [place] [address] [address] Yariel Herrera Anion gap [Moles/Vol] 10.1 mmol/L Normal [facility] Comment on above: Performed By: #### C MP, TSH #### [facility] [address] [place] [address] Dr. Yariel Herrera AST [Catalytic activity/Vol] 14 U/L Critically low 15-37 [facility] Comment on above: Performed By: #### C MP, TSH #### [facility] [address] [place] [address] [address] Yariel Herrera Bilirubin [Mass/Vol] 0.3 mg/dL Normal 0.2-1.0 [facility] Comment on above: Performed By: #### C MP, TSH #### [facility] [facility] [address] [address] [address] Yariel Herrera Calcium [Mass/Vol] 9.4 mg/dL Normal 8.5-10.1 [facility] Comment on above: Performed By: #### C MP, TSH #### [facility] [address] [address] [address] Yariel Herrera Chloride [Moles/Vol] 103 mmol/L Normal 98-107 [facility] Comment on above: Performed By: #### C MP, TSH #### [facility] [address] [address] [address] Yariel Herrera CO2 [Moles/Vol] 30.9 mmol/L Normal 21.0-32.0 [facility] Comment on above: Performed By: #### C MP, TSH #### [facility] [address] [address] [address] Yariel Herrera Creatinine [Mass/Vol] 0.88 mg/dL Normal 0.55-1.02 [facility] Comment on above: Performed By: #### C MP, TSH #### [facility] [address] [address] [address] Yariel Herrera EGFR-AF [place] >60 Normal >=60 [facility] Comment on above: Performed By: #### C MP, TSH #### [facility] [address] [address] [address] Yariel Herrera EGFR-NON AF [place] >60 Normal >=60 [facility] Comment on above: Performed By: #### C MP, TSH #### [facility] [address] [place] [address] Dr. Yariel Herrera Globulin (S) [Mass/Vol] 3.5 g/dL Normal [facility] Comment on above: Performed By: #### C MP, TSH #### [facility] [address] [address] [address] Yariel Herrera Glucose [Mass/Vol] 117 mg/dL Critically high 74-106 [facility] Comment on above: Performed By: #### C MP, TSH #### [facility] [address] [place] [address] Dr. Yariel Herrera Potassium [Moles/Vol] 4.0 mmol/L Normal 3.5-5.1 [facility] Comment on above: Performed By: #### C MP, TSH #### [facility] [address] [address] [address] Yariel Herrera Protein [Mass/Vol] 7.4 g/dL Normal 6.4-8.2 [facility] Comment on above: Performed By: #### C MP, TSH #### [facility] [address] [address] [address] Yariel Herrera Sodium [Moles/Vol] 140 mmol/L Normal 136-145 [facility] Comment on above: Performed By: #### C MP, TSH #### [facility] [address] [address] [address] Yairel Herrera Urea nitrogen [Mass/Vol] 18.0 mg/dL Normal 7.0-18.0 [facility] Comment on above: Performed By: #### C MP, TSH #### [facility] [address] [place] [address] Dr. Yariel Herrera Urea nitrogen/Creatinine [Mass ratio] 20.5 mg/mg Normal [facility] Comment on above: Performed By: #### C MP, TSH #### [facility] [address] [address] [address] Yariel Herrera TSHon 01-05-2022 TSH 1.380 uIU/mL Normal 0.358-3.740 [facility] Comment on above: Performed By: #### C MP, TSH #### [facility] [address] [place] [address] Dr. Yariel Herrera GLYCOHEMOGLOBIN A1Con 2021 ADA RECOMMENDATION SEE BELOW Normal [facility] Comment on above: Result Comment: ADA RECOMMENDED LIMIT 4.0 - 6.0 ADA THERAPEUTIC TARGET < 7.0 ACTION SUGGESTED > 7.0 Performed By: #### A 1C #### [facility] [address] [place] [address] Dr. Yariel Herrera Glucose [Mass/Vol] 137 mg/dL Normal [facility] Comment on above: Performed By: #### A 1C #### [facility] [address] [place] [address] Dr. Yariel Herrera HbA1c (Bld) [Mass fraction] 6.4 % Critically high 4.5-6.2 [facility] Comment on above: Performed By: #### A 1C #### [facility] [address] [place] [address] Dr. Yariel Herrera ECHOCARDIO M/2D COMPLETEon 0 10-16-2021 ECHOCARDIO M/2D COMPLETE Patient: STEPHAN LÓPEZ Exam Date: 10/16/2021 : 1960 Gender:F Ordering : CARL WILLIS Admission #: [id number] Family : Order #: [id number] CLICK HERE TO VIEW EXAM ECHOCARDIOGRAM REPORT [...] on 10/16/2021 at 17:12 Normal [facility] ECHOCARDIO M/2D COMPLETEon 0 09-16-2021 ECHOCARDIO M/2D COMPLETE Patient: STEPHAN LÓPEZ Exam Date: 09/16/2021 : 1960 Gender:F Ordering : GAURAV MARTINEZ [facility] Admission #: [id number] Family : Order #: [id number] CLICK HERE TO VIEW EXAM ECHOCARDIOGRAM REPORT [...] on 09/17/2021 at 13:02 Normal [facility] CBC AUTO DIFFon 08-04-2021 BASO # 0.1 103/ul Normal 0.0-0.1 [facility] Comment on above: Performed By: #### C BC #### [facility] [address] [place] [address] Dr. Yariel Herrera Basophils/100 WBC (Bld) 0.6 % Normal 0.2-2.0 [facility] Comment on above: Performed By: #### C BC #### [facility] [address] [place] [address] Dr. Yariel Herrera EO # 0.1 103/ul Normal 0.0-0.7 [facility] Comment on above: Performed By: #### C BC #### [facility] [address] [place] [address] Dr. Yariel Herrera Eosinophils/100 WBC (Bld) 0.9 % Normal 0.9-7.0 [facility] Comment on above: Performed By: #### C BC #### [facility] [address] [place] [address] Dr. Yariel Herrera Erythrocyte distribution width (RBC) [Ratio] 13.8 % Normal 11.0-15.0 [facility] Comment on above: Performed By: #### C BC #### [facility] [address] [place] [address] Dr. Yariel Herrera Hematocrit (Bld) [Volume fraction] 47.1 % Normal 36.0-48.0 [facility] Comment on above: Performed By: #### C BC #### [facility] [address] [place] [address] Dr. Yariel Herrera Hemoglobin (Bld) [Mass/Vol] 15.2 g/dL Normal 12.0-16.0 [facility] Comment on above: Performed By: #### C BC #### [facility] [address] [place] [address] Dr. Yariel Herrera IG # 0.04 10e3/ul Critically high 0.00-0.03 [facility] Comment on above: Performed By: #### C BC #### [facility] [address] [place] [address] Dr. Yariel Herrera IG % 0.3 % Normal 0.0-0.5 [facility] Comment on above: Performed By: #### C BC #### [facility] [address] [place] [address] Dr. Yariel Herrera LYMPH # 3.7 103/ul Normal 1.2-3.8 [facility] Comment on above: Performed By: #### C BC #### [facility] [address] [place] [address] Dr. Yariel Herrera Lymphocytes/100 WBC (Bld) 30.6 % Normal 20.5-60.0 [facility] Comment on above: Performed By: #### C BC #### [facility] [address] [place] [address] Dr. Yariel Herrera MANUAL DIFF REQ NO Normal [facility] Comment on above: Performed By: #### C BC #### [facility] [address] [place] [address] Dr. Yariel Herrera MCH (RBC) [Entitic mass] 32.0 pg Normal 26.7-34.0 [facility] Comment on above: Performed By: #### C BC #### [facility] [address] [place] [address] Dr. Yariel Herrera MCHC (RBC) [Mass/Vol] 32.3 g/dL Normal 29.9-35.2 [facility] Comment on above: Performed By: #### C BC #### [facility] [address] [place] [address] Dr. Yariel Herrera MCV (RBC) [Entitic vol] 99.2 fL Critically high 81.0-99.0 [facility] Comment on above: Performed By: #### C BC #### [facility] [address] [place] [address] Dr. Yariel Herrera MONO # 0.9 103/ul Critically high 0.3-0.8 [facility] Comment on above: Performed By: #### C BC #### [facility] [address] [place] [address] Dr. Yariel Herrera Monocytes/100 WBC (Bld) 7.4 % Normal 1.7-12.0 [facility] Comment on above: Performed By: #### C BC #### [facility] [address] [place] [address] Dr. Yariel Herrera NEUT # 7.3 103/ul Critically high 1.4-6.5 [facility] Comment on above: Performed By: #### C BC #### [facility] [address] [place] [address] Dr. Yariel Herrera Neutrophils/100 WBC (Bld) 60.2 % Normal 43.0-75.0 [facility] Comment on above: Performed By: #### C BC #### [facility] [address] [place] [address] Dr. Yariel Herrera Platelet mean volume (Bld) [Entitic vol] 11.7 fL Normal 9.5-13.5 [facility] Comment on above: Performed By: #### C BC #### [facility] [address] [place] [address] Dr. Yariel Herrera PLT 330 103/ul Normal 150-450 [facility] Comment on above: Performed By: #### C BC #### [facility] [address] [place] [address] Dr. Yariel Herrera RBC 4.75 106/ul Normal 4.20-5.40 [facility] Comment on above: Performed By: #### C BC #### [facility] [address] [place] [address] Dr. Yariel Herrera WBC 12.1 103/ul Critically high 4.0-11.0 [facility] Comment on above: Performed By: #### C BC #### [facility] [address] [place] [address] Dr. Yariel Herrera FREE T3on 08-04-2021 FREE T3 2.46 pg/mlL Normal 2.18-3.98 [facility] Comment on above: Performed By: #### C BC #### [facility] [address] [place] [address] Dr. Yariel Herrera FREE T4on 08-04-2021 Free T4 [Mass/Vol] 1.08 ng/dL Normal 0.76-1.46 [facility] Comment on above: Performed By: #### F T4 #### [facility] [address] [place] [address] Dr. Yariel Herrera PROF 14(COMP METB)on 022 Albumin [Mass/Vol] 4.2 g/dL Normal 3.4-5.0 [facility] Comment on above: Performed By: #### C BC #### [facility] [address] [place] [address] Dr. Yariel Herrera Albumin/Globulin [Mass ratio] 1.2 {ratio} Normal [facility] Comment on above: Performed By: #### C BC #### [facility] [address] [address] [address] Yariel Herrera ALP [Catalytic activity/Vol] 87 U/L Normal 46-116 [facility] Comment on above: Performed By: #### C BC #### [facility] [address] [place] [address] Dr. Yariel Herrera ALT [Catalytic activity/Vol] 25 U/L Normal 14-59 [facility] Comment on above: Performed By: #### C BC #### [facility] [address] [place] [address] Dr. Yariel Herrera Anion gap [Moles/Vol] 13.3 mmol/L Normal [facility] Comment on above: Performed By: #### C BC #### [facility] [address] [place] [address] Dr. Yariel Herrera AST [Catalytic activity/Vol] 15 U/L Normal 15-37 [facility] Comment on above: Performed By: #### C BC #### [facility] [address] [place] [address] Dr. Yariel Herrera Bilirubin [Mass/Vol] 0.5 mg/dL Normal 0.2-1.0 [facility] Comment on above: Performed By: #### C BC #### [facility] [address] [place] [address] Dr. Yariel Herrera Calcium [Mass/Vol] 9.6 mg/dL Normal 8.5-10.1 [facility] Comment on above: Performed By: #### C BC #### [facility] [address] [place] [address] Dr. Yariel Herrera Chloride [Moles/Vol] 103 mmol/L Normal 98-107 [facility] Comment on above: Performed By: #### C BC #### [facility] [address] [place] [address] Dr. Yariel Herrera CO2 [Moles/Vol] 28.9 mmol/L Normal 21.0-32.0 [facility] Comment on above: Performed By: #### C BC #### [facility] [address] [place] [address] Dr. Yariel Herrera Creatinine [Mass/Vol] 0.84 mg/dL Normal 0.55-1.02 [facility] Comment on above: Performed By: #### C BC #### [facility] [address] [address] [address] Yariel Herrera EGFR-AF [place] >60 Normal >=60 [facility] Comment on above: Performed By: #### C BC #### [facility] [address] [address] [address] Yariel Herrera EGFR-NON AF [place] >60 Normal >=60 [facility] Comment on above: Performed By: #### C BC #### [facility] [address] [address] [address] Yariel Herrera Globulin (S) [Mass/Vol] 3.4 g/dL Normal [facility] Comment on above: Performed By: #### C BC #### [facility] [address] [place] [address] Dr. Yariel Herrera Glucose [Mass/Vol] 111 mg/dL Critically high 74-106 [facility] Comment on above: Performed By: #### C BC #### [facility] [address] [address] [address] Yariel Herrera Potassium [Moles/Vol] 4.2 mmol/L Normal 3.5-5.1 [facility] Comment on above: Performed By: #### C BC #### [facility] [address] [place] [address] Dr. Yariel Herrera Protein [Mass/Vol] 7.6 g/dL Normal 6.4-8.2 [facility] Comment on above: Performed By: #### C BC #### [facility] [address] [place] [address] Dr. Yariel Herrera Sodium [Moles/Vol] 141 mmol/L Normal 136-145 [facility] Comment on above: Performed By: #### C BC #### [facility] [address] [address] [address] Yariel Herrera Urea nitrogen [Mass/Vol] 15.0 mg/dL Normal 7.0-18.0 [facility] Comment on above: Performed By: #### C BC #### [facility] [address] [place], [place] [address] Dr. Yariel Herrera Urea nitrogen/Creatinine [Mass ratio] 17.9 mg/mg Normal [facility] Comment on above: Performed By: #### C BC #### [facility] [address] [place], [place] [address] Dr. Yariel Herrera TSHon 08-04-2021 TSH 1.073 uIU/mL Normal 0.358-3.740 [facility] Comment on above: Performed By: #### C BC #### [facility] [address] [address] [address] Yariel Herrera TSH RANGE SEE BELOW Normal [facility] Comment on above: Result Comment: <0.3 4 UIU/ml HYPERTHYROID 0.34-5.60 UIU/ml EUTHYROID >5.60 UIU/ml HYPOTHYROID Performed By: #### C BC #### [facility] [address] [address] [address] Yariel Herrera Encounters Encounter Date Encounter Type Care Provider Facility Start: 07-27-2023 End: 07-27-2023 ambulatory GAYLA MARTINEZ Not Available Start: 07-05-2023 End: 07-06-2023 ambulatory Lara Mar MD Facility:[facility] Start: 06-14-2023 End: 06-15-2023 ambulatory Lara Mar MD Facility:[facility] Start: 05-25-2023 End: 05-26-2023 ambulatory Physician Unavailable Facility[facility] Start: 05-10-2023 End: 05-11-2023 ambulatory Lara Mar MD Facility:[facility] Start: 05-04-2023 End: 05-05-2023 ambulatory Delfino Snider III, MD Facility:[facility] Start: 04-26-2023 End: 04-26-2023 ambulatory GAYLA MARTINEZ Not Available Start: 04-08-2023 Clinisync Result Encounter Gayla Martinez SAL[employer] SOLUTIONS REPRESENTATIVE Work Phone: [facility] External Department Unsolicited Start: 04-08-2023 Clinisync Result Encounter Gayla Shiraz SALES SOLUTIONS REPRESENTATIVE Work Phone: [facility] External [facility] Unsolicited Start: 04-07-2023 Refill Gayla Shiraz SAL[employer] SOLUTIONS REPRESENTATIVE Work Phone: [facility] Comment on above: COPD with exacerbati on (CMS/HCC) (Primary Dx) Start: 02-08-2023 End: 02-09-2023 ambulatory [facility]oner [facility] Start: 01-25-2023 End: 01-25-2023 ambulatory GAYLA SHIRAZ Not Available Start: 01-19-2023 End: 01-19-2023 ambulatory [facility] Start: 12-22-2022 End: 12-23-2022 [facility] Start: 11-26-2022 End: 11-27-2022 ambulatory [facility] Start: 11-23-2022 End: 11-24-2022 ambulatory Lara Mar MD Facility: [facility] Start: 10-15-2022 End: 10-16-2022 ambulatory Dasha Mayela Waggoner PA-C Facility:[facility] Start: 09-16-2022 End: 09-17-2022 [facility] Start: 08-21-2022 End: 08-24-2022 Evaluation and management of inpatient Delfino Snider III, MD Facility:[facility] Start: 08-14-2022 End: 08-15-2022 ambulatory Delfino Snider III, MD Facility:[facility] Start: 08-10-2022 End: 08-11-2022 ambulatory Delfino Snider III, MD Facility:[facility] Start: 08-06-2022 ambulatory Delfino Snider III, MD Facility:[facility] Start: 07-23-2022 End: 06-02-2023 ambulatory Dasha Waggoner PA-C Facility:[facility] Start: 07-03-2022 End: 07-03-2022 ambulatory [facility] Start: 06-17-2022 End: 06-18-2022 ambulatory INA JOHNSON Facility:[facility] Start: 06-10-2022 End: 06-10-2022 [facility] Start: 05-08-2022 End: 05-09-2022 ambulatory MOHAMAD ALGHOTHANI Facility:[facility] Start: 01-05-2022 End: 01-06-2022 ambulatory MOHAMAD ALGHOTHANI Facility:[facility] Start: 11-05-2021 End: 11-06-2021 ambulatory ELECTRONICS COMPUTER MECHANIC GAYLA JOANNAAbebeKATINAIrina Facility:[facility] Start: 10-16-2021 End: 10-17-2021 ambulatory CARL RIVERAANI Facility:[facility] Start: 09-16-2021 End: 09-17-2021 ambulatory ELECTRON[employer] COMPUTER MECHANIC GAYLA ALICEIrina Facility:[facility] Start: 08-04-2021 End: 08-05-2021 ambulatory ELECTRON[employer] COMPUTER MECHANIC GAYLA JOANNAAbebeKATINAIrina Facility:[facility] Procedures Date Procedure Procedure Detail Performing Clinician Start: 04-08-2023 [facility] INFLU[facility]ZA [facility] B [facility] Gayla Shiraz SAL[employer] REPRESENTATIVE Work Phone: Start: 12-03-2022 Mammography Gayla Sara jerome SAL[employer] SOLUTIONS REPRESENTATIVE Work Phone: Start: 04-20-2013 Colonoscopy Gayla Sara jerome [employer] SOLUTIONS REPRESENTATIVE Work Phone: Plan of Treatment Date Care Activity Detail Author Start: 09-08-2026 Screening for malign ant neoplasm of colon [facility] Start: 12-04-2023 Screening for malign ant neoplasm of breast Mammogram [facility] Start: 09-30-2023 ambulatory Ambulatory Facility:[facility] Start: 08-22-2023 Influenza vaccination Influenza Vacc ine (#1) [facility] Comment on above: Postponed from 10/23 (Other Medical Reasons) Start: 07-24-2023 Screening for malign ant neoplasm of cervix Cervical Cancer Screening [facility] Comment on above: Postponed from 02/03 (Other Medical Reasons) Start: 05-30-2023 Urine screening for protein Diabetes: Urine Protein Screening [facility] Start: 04-26-2023 Glaucoma screening Diabetes: R etinopathy Screening [facility] Comment on above: Postponed from 02/03 (Other Medical Reasons) Start: 04-26-2023 End: 04-26-2023 Patient encounter procedure 04/26/2023 9:00 AM EST Office Visit [facility] [address] [place] [address] Gayal Martinez, ROSI [address] [place] [id number] [facility] Start: 03-05-2023 Hemoglobin A1c measurement Diabetes: Hemoglobin A1C [facility] Start: 02-03-1990 Screening for malign ant neoplasm of cervix HPV/Cotest [facility] Start: 02-03-1981 Screening for malign ant neoplasm of cervix Pap Smear [facility] Start: 1960 Screening for malign ant neoplasm of colon [facility] Immunizations Immunization Date Immunization Notes Care Provider Fa cility 01-06-2022 influenza virus vacc ine, unspecified formulation Gayla Martinez NP Work Phone: [facility] Payers Date Payer Category Payer Private Health Insurance 2022 Medicaid [employer] [place] [id number] 2022-Present [address] [place] [address] [id number] 1960 Unknown [id number] 2.16.840.1.544770.3.579.2. 593 1960 Unknown [id number] 2.16.840.1.588964.3.579.2. 593 1960 Unknown [id number] 2.16.840.1.446940.3.579.2. 593 1960 Unknown [id number] 2.16.840.1.482845.3.579.2. 593 1960 Unknown [id number] 2.16.840.1.833004.3.579.2. 593 1960 Unknown [id number] 2.16.840.1.643597.3.579.2. 593 1960 Unknown [id number] 2.16.840.1.075459.3.579.2. 593 1960 Unknown [id number] 2.16.840.1.743101.3.579.2. 196 1960 Unknown [id number] 2.16.840.1.898845.3.579.2. 196 1960 Unknown [id number] 2.16.840.1.721320.3.579.2. 196 1960 Unknown [id number] 2.16.840.1.169911.3.579.2. 196 1960 Unknown [id number] 2.16.840.1.269901.3.579.2. 196 1960 Unknown [id number] 2.16.840.1.753200.3.579.2. 196 1960 Unknown [id number] 2.16.840.1.299743.3.579.2. 196 1960 Unknown [id number] 2.16.840.1.928989.3.579.2. 196 1960 Unknown [id number] 2.16.840.1.188591.3.579.2. 196 1960 Unknown [id number] 2.16.840.1.319594.3.579.2. 196 1960 Unknown [id number] 2.16.840.1.945480.3.579.2. 196 1960 Unknown [id number] 2.16.840.1.233895.3.579.2. 196 1960 Unknown [id number] 2.16.840.1.831456.3.579.2. 196 1960 Unknown [id number] 2.16.840.1.893133.3.579.2. 196 1960 Unknown [id number] 2.16.840.1.021156.3.579.2. 196 1960 Unknown [id number] 2.16.840.1.885735.3.579.2. 196 1960 Unknown [id number] 2.16.840.1.476902.3.579.2. 196 1960 Unknown [id number] 2.16.840.1.490251.3.579.2. 196 1960 Unknown [id number] 2.16.840.1.306606.3.579.2. 1259 1960 Unknown [id number] 2.16.840.1.417227.3.579.2. 1259 1960 Unknown [id number] 2.16.840.1.839955.3.579.2. 1259 1959 Unknown [id number] 1959 Unknown [id number] Social History Date Type Detail Facility Start: 01-25-2023 [facility] History of tobacco use Cigarette Smoker [...] At Not on file [facility] Medical Equipment Procedure Code Equipment Code Equipment Original Text Equi pment Identifier Dates 1 Device Daily as needed. [id number] Clinical Notes 06-10-2022 to 01-19-2023 Note Date & Type Note Facility 01-19-2023 Note Cardiovascular Medic ine [facility] SUBJECTIVE Chief Complaint Patient presents with Follow-up Hypertension Stephan López is a 62 y.o. female here for follow-up. HPI PMHx: HTN, pericardial effusion, HLD She denies any cardiac concerns today. She has back problems. She is 5 months s/p surgery and she is still recovering. She is following with pain management at [facility]. She is not currently checking her [...] needed. Dante Hand NP [facility] 01-19-2023 Note Patient here for 6 [...] All other systems reviewed and are negative. [facility] 08-24-2022 Note Admission Mat Hayes 62-year-old [...] neurosurgery education form Follow-up: As scheduled preoperatively-call [phone] to confirm appointment to be seen in the neurosurgery clinic approximately 2 weeks after surgery Procedures while admitted: -Decompressive laminectomies of L3 and L4 as well as superior third of L5 with total foraminotomies bilateral L3-4 and L4-5; interbody arthrodesis L4-5 using TLIF technique with locally harvested autograft from laminectomy and [employer] elevate expandable cage 8-12 mm; posterolateral arthrodesis L3-L4 and L5 bilaterally with locally harvested autograft and small kit infuse from [employer] due to chronic nicotine abuse; transpedicular fixation L3, L4, L5 bilaterally with [employer] Osteogrip screws 6.5 mm in diameter; resection of juxta articular facet cyst left L4-5; computer-assisted hardware placement using [employer] station and [employer] O-arm Medications Home atorvastatin 20 mg oral [...] oral capsule, 500 mg= 1 caps, Oral, [id number] Times magnesium hydroxide 8% oral suspension, 1.2 [...] Refill(s), 08/31/22 7:48:00 EDT, Pharmacy: [facility] #[id number] Discharge Patient 3. Lumbar radiculopathy Ordered: Discharge Patient 4. Nicotine dependence Ordered: Discharge Patient Orders: ascorbic acid, 1 tabs, Oral, q8hr, # 270 tabs, 0 Refill(s), Pharmacy: [facility] #[id number] cephalexin, 500 mg, Oral, Cap, [id number] Times for 12 doses, First Dose: 08/24/22 12:00:00 EDT, Stop Date: 08/27/22 11:59:00 EDT, Dispense From Location: [address], Prophylaxis- Pre/Post-Op, 08/24/22 7:40:00 EDT cephalexin, 1 caps, Oral, [id number] Times, X 3 days, # 12 caps, 0 Refill(s), 08/27/22 7:47:00 EDT, Pharmacy: [facility] #[id number] docusate, 1 caps, Oral, BID, # 14 caps, 0 Refill(s), Pharmacy: [facility] #[id number] ferrous sulfate, 1 tabs, Oral, BID, # 60 tabs, 0 Refill(s), Pharmacy: [facility] #[id number] magnesium hydroxide, 15 mL, Ora (more content not included)... [facility] 07-03-2022 Note No concerning symptoms [facility] 07-03-2022 Note Hypertension is well controlled 120/84 Reviewed b/p log and overall her b/p is controlled with some outliers of high and low b/p. Renal function was normal s/p starting lisinopril [facility] 07-03-2022 Note Patient here for 1 [...] All other systems reviewed and are negative. [facility] 07-03-2022 Note UTP CARDIOLOGY PROGR ESS [...] effusion No concerning symptoms RTC 6 months [facility] 06-10-2022 Note F/U with PCP [facility] 06-10-2022 Note Hypertension is 145/ 99 uncontrolled Will start lisinopril 2.5 mg daily BMP in 1 week Start monitoring b/p at home and record on a log, RTC 1 month D/W pt about side effects of 1st dose low b/p and dry persistent cough [facility] 06-10-2022 Note Recent echo with not ed trivial effusion. No recent illness or any concerning symptoms [facility] 06-10-2022 Note UTP CARDIOLOGY PROGR ESS [...] with PCP RTC 1 month for re-evaluation [facility] 06-10-2022 Note Patient here for 6 m o follow up pericardial effusion. Had echo in April 2022. Denies chest pain and SOB. Review of Systems Musculoskeletal: Positive for back pain. All other systems reviewed and are negative. [facility] Evaluation note Diagnosis COPD with exacerbation [...] DATE CREATED AUTHOR AUTHOR'S ORGANIZ ATION 03/20/2023 [facility] DATE CREATED AUTHOR AUTHOR'S ORGANIZ ATION 07/10/2023 [facility] DATE CREATED AUTHOR AUTHOR'S ORGANIZ ATION 07/28/2023 [facility] EPIC Care Teams (unrecognized sec tion and content) Special Needs Librarian Relationship Specialty Start Date End Date Jim Deleon MD [address] [place] [phone] PCP - General Family Medicine 09/18/22 Gayla Martinez NP [address] [place] [phone] Referring Physician Nurse Practitioner 09/18/22 Special Needs Librarian Relationship Specialty Start Date End Date Jim Deleon MD [address] [place] [phone] PCP - General Family Medicine 09/18/22 Gayla Martinez NP [address] [place] [phone] Referring Physician Nurse Practitioner 09/18/22 FOR RECORDS [...] BE BASED ON THE PRIMARY CLINICAL RECORDS. [employer] [facility]. provides no warranty or guarantee of the accuracy or completeness of information in this document.
== END 2023-08-12 08:56 | disposition home or self-care (01) ==
LOC: PM 08:55
PROVIDERS: PCP Nurse Practitioner; Visit Provider Nurse Practitioner
DX: M54.50 Low back pain, unspecified (principal); M96.1 Postlaminectomy syndrome, not elsewhere classified; M48.062 Spinal stenosis, lumbar region with neurogenic claudication; M47.816 Spondylosis without myelopathy or radiculopathy, lumbar region; M46.1 Sacroiliitis, not elsewhere classified; Z79.891 Long term (current) use of opiate analgesic; M62.838 Other muscle spasm
CPT/HCPCS: G0463

== ENCOUNTER 2023-08-30 08:33 | Day surgery (SDC) | payer OTHER, SELFPAY ==
--- OUTSIDE RECORDS SUMMARY | 2023-08-30 08:42 | XMS_ITS | CCD ---
Author Organization [facility] Care Team Providers Care Outpatient Pharmacy Manager Name Role Phone ALBA MOHAMAD Attending Unavailable AICHHOLZ, DIRECTOR OF PHOTOGRAPHY GAYLA Primary Care Unavailable ALGHOTHANI, MOHAMAD Consulting Unavailable ALGHOTHANI, MOHAMAD Admitting Unavailable AICHHOLZ, DIRECTOR OF PHOTOGRAPHY GAYLA Primary Care Unavailable AICHHOLZ, DIRECTOR OF PHOTOGRAPHY GAYLA Admitting Unavailable AICHHOLZ, DIRECTOR OF PHOTOGRAPHY GAYLA Attending Unavailable AICHHOLZ, DIRECTOR OF PHOTOGRAPHY GAYLA Consulting Unavailable ALGHOTHANI, MOHAMAD Attending Unavailable AICHHOLZ, DIRECTOR OF PHOTOGRAPHY GAYLA Primary Care Unavailable ALGHOTHANI, MOHAMAD Consulting Unavailable ALGHOTHANI, MOHAMAD Admitting Unavailable ALGHOTHANI, MOHAMAD Attending Unavailable AICHHOLZ, DIRECTOR OF PHOTOGRAPHY GAYLA Primary Care Unavailable ALGHOTHANI, MOHAMAD Consulting Unavailable ALGHOTHANI, MOHAMAD Admitting Unavailable ALEX, INA Attending Unavailable ALEX, INA Admitting Unavailable ALEX, INA Consulting Unavailable AICHHOLZ, DIRECTOR OF PHOTOGRAPHY GAYLA Primary Care Unavailable AICHHOLZ, DIRECTOR OF PHOTOGRAPHY GAYLA Admitting Unavailable AICHHOLZ, DIRECTOR OF PHOTOGRAPHY GAYLA Attending Unavailable AICHHOLZ, DIRECTOR OF PHOTOGRAPHY GAYLA Consulting Unavailable AICHHOLZ, DIRECTOR OF PHOTOGRAPHY GAYLA Primary Care Unavailable AICHHOLZ, DIRECTOR OF PHOTOGRAPHY GAYLA Admitting Unavailable AICHHOLZ, DIRECTOR OF PHOTOGRAPHY GAYLA Attending Unavailable AICHHOLZ, DIRECTOR OF PHOTOGRAPHY GAYLA Consulting Unavailable AICHHOLZ, DIRECTOR OF PHOTOGRAPHY GAYLA Primary Care Unavailable ALEX, INA Attending Unavailable ALEX, INA Attending Unavailable DANTE HAND Attending Unavailable Aichholz SKILLED LABOR, Gayla Unavailable Jim Deleon MD Primary Care Provider MICHELLE GAYLA Attending Unavailable AICHHOLZ, GAYAL Attending Unavailable AICHHOLZ, GAYLA Attending Unavailable King MICHELLE, Dasha Pedro Attending Unavailab rose Mar MD, Lara Amos Attending Unavailable Isabela BOWIE, Lara [...] Attending Unavailab rose Snider III, MD, Delfino Holder U navailable Unavailable, Physician Primary Care Unavailab le Edilson PA-C, Dasha Pedro Attending Unavailab le Allergies Allergy Classification Reported Allergen(s) Allergy Type Date of Onset Reaction(s) Facility (3 sources) pregabalin; Translations: [PREGABALIN] Drug Allergy [address] [place] [address] Repository (1 source) No Known Medication Allergies; Translations: [No Known Medication Allergies] Propensity to adverse reactions to drug (disorder) [facility] Repository Medications Current Medications Medication Drug Class(es) [...] oral solution (2 sources) alpha-Adrenergic Agonist, Uncompetitive V-yymfup-X-aspartat e Receptor Antagonist, Sigma-1 Agonist Start: 04-07-2023 [...] Translations: [PERICARDIAL EFFUSION NONINFLAMM] Onset: 10-16-2021 Episodic Unclassified (1 source) OTH PERICARDIAL EFFUSION [...] an L5-S1 transforaminal SVITLANA 05/10/2023 by [facility] pain management which did give her approximately 2 to 3 weeks of incomplete benefit. She is planned for bilateral sacroiliac joint injections in the near future. The patient has discontinued her LSO brace that continues her electromagnetic stimulator 8 hours/day. Recent imaging (provider interpretation): Lumbar flexion/extension x-rays 04/30/[address] [facility] reveals straightening of lumbar lordosis. Evidence of L3-5 posterior spinal fusion with instrumentation and interbody fusion L4-5. No evidence of hardware fracture or pullout. Patient found to have degenerative disc disease L2-3 and L5-S1. There is slight retrolisthesis L2-3 as well as unchanged anterior listhesis at her surgerized L4-5 segment. No evidence of dynamic instability. CT lumbar spine 02/03/2023 at [facility] reveals evidence of L3-5 posterior spinal [...] prior imaging. CT lumbar spine 10/14/2022 at [facility] reveals evidence of L3-5 decompression and [...] which c (more content not included)... Normal [facility] INFLUENZA A AND B AGon 0 04-08-2023 INFLUENZA VIRUS A ANTIGEN Positive Abnormal [facility] Comment on above: NOTE: Live attenuate d influenza vaccine viruses can cause a positive result for a rapid influenza diagnostic test if administered up to 7 days prior to rapid testing. INFLUENZA VIRUS B ANTIGEN Negative [facility] Comment on above: Negative for Flu B p rotein antigen. Infection due to Flu B cannot be ruled out. Flu B antigen in the sample may be below the detection limit of the test. Interpretation and review of laboratory results Abnormal [facility] 36on 03-19-2023 36 Please let her know her labs showed normal kidney function. Can continue lisinopril. Thank you Normal [facility] Telephoneon 03-19-2023 Telephone [id number] James López 1960 F Date Provider Department Center 03/19/2023 DANTE BAIG [facility] Family History Problem Relation Age of Onset Other Mother Heart attack Father Other Father Other Father Other Maternal Grandmother Family Status - Relation Status Age at Mother Father Maternal Grandmother Normal [facility] Neurosurgery Office/Clinic N oteon 02-08-2023 Neurosurgery Office/Clinic [...] tizanidine as provided by pain management ([facility] pain management) only as needed and has not yet returned to NSAID medication. She continues to utilize nicotine and understands the deleterious effects of nicotine on her overall health and bony arthrodesis. Recent imaging (provider interpretation): CT lumbar spine 02/03/2023 at [facility] reveals evidence of L3-5 posterior spinal [...] prior imaging. CT lumbar spine 10/14/2022 at [facility] reveals evidence of L3-5 decompression and [...] bladder inc (more content not included)... Normal [facility] Office Visiton 01-19-2023 Follow-up visit [id number] James López 1960 F Date Provider Department Center 01/19/2023 166-DANTE HAND Family History Problem Relation Age of Onset Other Mother Heart attack Father Other Father Other Father Other Maternal Grandmother Family Status - Relation Status Age at Mother Father Maternal Grandmother Level of Service:88952 MS OFFICE/OUTPATIENT ESTABLISHED LOW MDM 20-29 MIN Reason for Visit and Comments: Follow-up [467761] Hypertension [451458] Normal [facility] Neurosurgery Office/Clinic N oteon 12-22-2022 Neurosurgery Office/Clinic [...] times per week. She follows with [facility] pain management which is a transition from [facility] pain management group. She continues to smoke [...] prior imaging. CT lumbar spine 10/14/2022 at [facility] reveals evidence of L3-5 decompression and [...] mild tenderness (more content not included)... Normal [facility] Neurosurgery Office/Clinic N zain 11-26-2022 Neurosurgery Office/Clinic [...] transferred pain management care from [facility] to [facility]. Per the patient, they eventually would like her to initiate hot water physical therapy though only after receiving clearance from this office. Recent imaging (provider interpretation): CT lumbar spine 10/14/2022 at [facility] reveals evidence of L3-5 decompression and [...] lower extre (more content not included)... Normal [facility] Neurosurgery Office/Clinic N zain 10-15-2022 Neurosurgery Office/Clinic [...] (provider interpretation): CT lumbar spine 10/14/2022 at [facility] reveals evidence of L3-5 decompression and [...] Spine Lumbar w/o (more content not included)... [facility] Provider Letteron 10-15-2022 Provider Letter [facility] [address], [phone] Date: 10/15/2022 17:05:57 To Whom It May Concern: This is to verify that Stephan López was under our care on 10/15/2022 16:00:00. Stated patient underwent an L3-5 posterior spinal fusion on 08/21/22 with instrumentation utilizing [employer]tronic osteogrip titanium screws. If you have any questions or concerns please call our office at [phone]. 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 [...] and manner are appropriate. She presents in [facility] lock brace which was removed at the [...] No redness (more content not included)... Normal [facility] Office Visiton 07-03-2022 Follow-up visit [id number] James López 1960 F Date Provider Department Center 07/03/2022 INA JONES [facility] Family History Problem Relation Age of Onset Other Mother Heart attack Father Other Father Other Father Other Maternal Grandmother Family Status - Relation Status Age at Mother Father Maternal Grandmother Level of Service:62900 MS OFFICE/OUTPATIENT ESTABLISHED LOW MDM 20-29 MIN Reason for Visit and Comments: Hypertension [575698] pericardial effusion [Other] Normal [facility] PROF CHEM 8 (BAS METB)on Anion gap [Moles/Vol] 12.9 mmol/L Normal [facility] Comment on above: Performed By: #### C BC #### [facility] [address] [place] [address] Dr. Yariel Herrera Calcium [Mass/Vol] 9.0 mg/dL Normal 8.5-10.1 [facility] Comment on above: Performed By: #### C BC #### [facility] [address] [place] [address] Dr. Yariel Herrera Chloride [Moles/Vol] 106 mmol/L Normal 98-107 [facility] Comment on above: Performed By: #### C BC #### [facility] [address] [place] [address] Dr. Yariel Herrera CO2 [Moles/Vol] 28.3 mmol/L Normal 21.0-32.0 [facility] Comment on above: Performed By: #### C BC #### [facility] [address] [place] [address] Dr. Yariel Herrera Creatinine [Mass/Vol] 0.81 mg/dL Normal 0.55-1.02 [facility] Comment on above: Performed By: #### C BC #### [facility] [address] [place] [address] Dr. Yariel Herrera EGFR-AF MACEDONIAN >60 Normal >=60 [facility] Comment on above: Performed By: #### C BC #### [facility] [address] [address] [address] Yariel Herrera EGFR-NON AF MACEDONIAN >60 Normal >=60 [facility] Comment on above: Performed By: #### C BC #### [facility] [address] [place] [address] Dr. Yariel Herrera Glucose [Mass/Vol] 103 mg/dL Normal 74-106 [facility] Comment on above: Performed By: #### C BC #### [facility] [address] [place] [address] Dr. Yariel Herrera Potassium [Moles/Vol] 4.2 mmol/L Normal 3.5-5.1 [facility] Comment on above: Performed By: #### C BC #### [facility] [address] [address] [address] Yariel Herrera Sodium [Moles/Vol] 143 mmol/L Normal 136-145 [facility] Comment on above: Performed By: #### C BC #### [facility] [address] [address] [address] Yariel Herrera Urea nitrogen [Mass/Vol] 9.0 mg/dL Normal 7.0-18.0 [facility] Comment on above: Performed By: #### C BC #### [facility] [address] [address] [address] Yariel Herrera Urea nitrogen/Creatinine [Mass ratio] 11.1 mg/mg Normal [facility] Comment on above: Performed By: #### C BC #### [facility] [address] [address] [address] Yariel Herrera 37on 06-10-2022 37 Start lisinopril 2.5 mg daily, Have labs/blood checked in 1 week for kidney function Monitor b/p at home 1-2 times/day and record on a log- bring with her to next visit. If you notice a dry, persistent cough- stop lisinopril and call office please. Normal [facility] Office Visiton 06-10-2022 Follow-up visit [id number] James López 1960 F Date Provider Department Center 06/10/2022 INA JONES [facility] Family History Problem Relation Age of Onset Other Mother Heart attack Father Other Father Other Father Other Maternal Grandmother Family Status - Relation Status Age at Mother Father Maternal Grandmother Level of Service:96008 MS OFFICE/OUTPATIENT ESTABLISHED MOD MDM 30-39 MIN Normal [facility] ECHOCARDIO M/2D COMPLETEon 0 05-08-2022 ECHOCARDIO M/2D COMPLETE Patient: STEPHAN LÓPEZ. Exam Date: 05/08/2022 : 1960 Gender:F Ordering : CARL WILLIS Admission #: [id number] Family : GAURAV MARTINEZ DIRECTOR OF PHOTOGRAPHY Order #: [id number] CLICK HERE TO VIEW EXAM ECHOCARDIOGRAM REPORT [...] on 05/08/2022 at 14:20 Normal [facility] ABHINAV by IFAon 01-08-2022 Antinuclear Antibodies, IFA Negative Normal [facility] Comment on above: Result Comment: Nega tive <1:80 Borderline 1:80 Positive >1:80 ICAP nomenclature: AC-0 For more information about Hep-2 cell patterns use ANApatterns.org, the official website for the International Consensus on Antinuclear Antibody (ABHINAV) Patterns (ICAP). Performed By: #### A NAIFA #### [facility] [address] [place] [address] Dr. Yariel Herrera CBC AUTO DIFFon 01-05-2022 BASO # 0.1 103/ul Normal 0.0-0.1 [facility] Comment on above: Performed By: #### C BC #### [facility] [address] [place] [address] Dr. Yariel Herrera Basophils/100 WBC (Bld) 0.6 % Normal 0.2-2.0 [facility] Comment on above: Performed By: #### C BC #### [facility] [address] [place] [address] Dr. Yariel Herrera EO # 0.2 103/ul Normal 0.0-0.7 [facility] Comment on above: Performed By: #### C BC #### [facility] [address] [place] [address] Dr. Yariel Herrera Eosinophils/100 WBC (Bld) 1.4 % Normal 0.9-7.0 [facility] Comment on above: Performed By: #### C BC #### [facility] [address] [place] [address] Dr. Yariel Herrera Erythrocyte distribution width (RBC) [Ratio] 13.6 % Normal 11.0-15.0 [facility] Comment on above: Performed By: #### C BC #### [facility] [address] [place] [address] Dr. Yariel Herrera Hematocrit (Bld) [Volume fraction] 46.6 % Normal 36.0-48.0 [facility] Comment on above: Performed By: #### C BC #### [facility] [address] [place] [address] Dr. Yariel Herrera Hemoglobin (Bld) [Mass/Vol] 15.4 g/dL Normal 12.0-16.0 [facility] Comment on above: Performed By: #### C BC #### [facility] [address] [place] [address] Dr. Yariel Herrera IG # 0.03 10e3/ul Normal 0.00-0.03 [facility] Comment on above: Performed By: #### C BC #### [facility] [address] [place] [address] Dr. Yariel Herrera IG % 0.2 % Normal 0.0-0.5 [facility] Comment on above: Performed By: #### C BC #### [facility] [address] [place] [address] Dr. Yariel Herrera LYMPH # 4.2 103/ul Critically high 1.2-3.8 [facility] Comment on above: Performed By: #### C BC #### [facility] [address] [place] [address] Dr. Yariel Herrera Lymphocytes/100 WBC (Bld) 31.3 % Normal 20.5-60.0 [facility] Comment on above: Performed By: #### C BC #### [facility] [address] [place] [address] Dr. Yariel Herrera MANUAL DIFF REQ NO Normal [facility] Comment on above: Performed By: #### C BC #### [facility] [address] [place] [address] Dr. Yariel Herrera MCH (RBC) [Entitic mass] 31.6 pg Normal 26.7-34.0 [facility] Comment on above: Performed By: #### C BC #### [facility] [address] [place] [address] Dr. Yariel Herrera MCHC (RBC) [Mass/Vol] 33.0 g/dL Normal 29.9-35.2 [facility] Comment on above: Performed By: #### C BC #### [facility] [address] [place] [address] Dr. Yariel Herrera MCV (RBC) [Entitic vol] 95.7 fL Normal 81.0-99.0 [facility] Comment on above: Performed By: #### C BC #### [facility] [address] [address] [address] Yariel Herrera MONO # 0.9 103/ul Critically high 0.3-0.8 [facility] Comment on above: Performed By: #### C BC #### [facility] [address] [address] [address] Yariel Herrera Monocytes/100 WBC (Bld) 6.8 % Normal 1.7-12.0 [facility] Comment on above: Performed By: #### C BC #### [facility] [address] [address] [address] Yariel Herrera NEUT # 8.0 103/ul Critically high 1.4-6.5 [facility] Comment on above: Performed By: #### C BC #### [facility] [address] [address] [address] Yariel Herrera Neutrophils/100 WBC (Bld) 59.7 % Normal 43.0-75.0 [facility] Comment on above: Performed By: #### C BC #### [facility] [address] [address] [address] Yariel Herrera Platelet mean volume (Bld) [Entitic vol] 10.7 fL Normal 9.5-13.5 [facility] Comment on above: Performed By: #### C BC #### [facility] [address] [address] [address] Yariel Herrera PLT 340 103/ul Normal 150-450 [facility] Comment on above: Performed By: #### C BC #### [facility] [address] [address] [address] Yariel Herrera RBC 4.87 106/ul Normal 4.20-5.40 [facility] Comment on above: Performed By: #### C BC #### [facility] [address] [address] [address] Yariel Herrera WBC 13.4 103/ul Critically high 4.0-11.0 [facility] Comment on above: Performed By: #### C BC #### [facility] [address] [place] [address] Dr. Yariel Herrera FREE T4on 01-05-2022 Free T4 [Mass/Vol] 1.06 ng/dL Normal 0.76-1.46 [facility] Comment on above: Performed By: #### C BC #### [facility] [address] [place] [address] Dr. Yariel Herrera PROF 14(COMP METB)on 022 Albumin [Mass/Vol] 3.9 g/dL Normal 3.4-5.0 [facility] Comment on above: Performed By: #### C MP, TSH #### [facility] [address] [place] [address] Dr. Yariel Herrera Albumin/Globulin [Mass ratio] 1.1 {ratio} Normal [facility] Comment on above: Performed By: #### C MP, TSH #### [facility] [address] [place] [address] Dr. Yariel Herrera ALP [Catalytic activity/Vol] 99 U/L Normal 46-116 [facility] Comment on above: Performed By: #### C MP, TSH #### [facility] [address] [place] [address] Dr. Yariel Herrera ALT [Catalytic activity/Vol] 17 U/L Normal 14-59 [facility] Comment on above: Performed By: #### C MP, TSH #### [facility] [address] [place] [address] Dr. Yariel Herrera Anion gap [Moles/Vol] 10.1 mmol/L Normal [facility] Comment on above: Performed By: #### C MP, TSH #### [facility] [address] [place] [address] Dr. Yariel Herrera AST [Catalytic activity/Vol] 14 U/L Critically low 15-37 [facility] Comment on above: Performed By: #### C MP, TSH #### [facility] [address] [place] [address] Dr. Yariel Herrera Bilirubin [Mass/Vol] 0.3 mg/dL Normal 0.2-1.0 [facility] Comment on above: Performed By: #### C MP, TSH #### [facility] [address] [address] [address] Yariel Herrera Calcium [Mass/Vol] 9.4 mg/dL Normal 8.5-10.1 [facility] Comment on above: Performed By: #### C MP, TSH #### [facility] [address] [address] [address] Yariel Herrera Chloride [Moles/Vol] 103 mmol/L Normal 98-107 [facility] Comment on above: Performed By: #### C MP, TSH #### [facility] [address] [address] [address] Yariel Herrera CO2 [Moles/Vol] 30.9 mmol/L Normal 21.0-32.0 [facility] Comment on above: Performed By: #### C MP, TSH #### [facility] [address] [place] [address] Dr. Yariel Herrera Creatinine [Mass/Vol] 0.88 mg/dL Normal 0.55-1.02 [facility] Comment on above: Performed By: #### C MP, TSH #### [facility] [address] [place] [address] Dr. Yariel Herrera EGFR-AF MACEDONIAN >60 Normal >=60 [facility] Comment on above: Performed By: #### C MP, TSH #### [facility] [address] [address] [address] Yariel Herrera EGFR-NON AF MACEDONIAN >60 Normal >=60 [facility] Comment on above: Performed By: #### C MP, TSH #### [facility] [address] [address] [address] Yariel Herrera Globulin (S) [Mass/Vol] 3.5 g/dL Normal [facility] Comment on above: Performed By: #### C MP, TSH #### [facility] [address] [address] [address] Yariel Herrera Glucose [Mass/Vol] 117 mg/dL Critically high 74-106 [facility] Comment on above: Performed By: #### C MP, TSH #### [facility] [address] [address] [address] Yariel Herrera Potassium [Moles/Vol] 4.0 mmol/L Normal 3.5-5.1 [facility] Comment on above: Performed By: #### C MP, TSH #### [facility] [address] [place] [address] Dr. Yariel Herrera Protein [Mass/Vol] 7.4 g/dL Normal 6.4-8.2 [facility] Comment on above: Performed By: #### C MP, TSH #### [facility] [address] [address] [address] Yariel Herrera Sodium [Moles/Vol] 140 mmol/L Normal 136-145 [facility] Comment on above: Performed By: #### C MP, TSH #### [facility] [address] [place] [address] Dr. Yariel Herrera Urea nitrogen [Mass/Vol] 18.0 mg/dL Normal 7.0-18.0 [facility] Comment on above: Performed By: #### C MP, TSH #### [facility] [address] [address] [address] Yariel Herrera Urea nitrogen/Creatinine [Mass ratio] 20.5 mg/mg Normal [facility] Comment on above: Performed By: #### C MP, TSH #### [facility] [address] [address] [address] Yariel Herrera TSHon 01-05-2022 TSH 1.380 uIU/mL Normal 0.358-3.740 [facility] Comment on above: Performed By: #### C MP, TSH #### [facility] [address] [place] [address] Dr. Yariel Herrera GLYCOHEMOGLOBIN A1Con 2021 ADA RECOMMENDATION SEE BELOW Normal [facility] Comment on above: Result Comment: ADA RECOMMENDED LIMIT 4.0 - 6.0 ADA THERAPEUTIC TARGET < 7.0 ACTION SUGGESTED > 7.0 Performed By: #### A 1C #### [facility] [address] [place] [address] Dr. Yariel Herrera Glucose [Mass/Vol] 137 mg/dL Normal [facility] Comment on above: Performed By: #### A 1C #### [facility] [address] [place], [place] [address] Dr. Yariel Herrera HbA1c (Bld) [Mass fraction] 6.4 % Critically high 4.5-6.2 [facility] Comment on above: Performed By: #### A 1C #### [facility] [address] [place], [place] [address] Dr. Yariel Herrera ECHOCARDIO M/2D COMPLETEon 0 10-16-2021 ECHOCARDIO M/2D COMPLETE Patient: STEPHAN LÓPEZ Exam Date: 10/16/2021 : 1960 Gender:F Ordering : CARL WILLIS Admission #: [id number] Family : Order #: [id number] CLICK HERE TO VIEW EXAM ECHOCARDIOGRAM REPORT [...] Melvin M.D. on 10/16/2021 at 17:12 Normal [facility] ECHOCARDIO M/2D COMPLETEon 0 09-16-2021 ECHOCARDIO M/2D COMPLETE Patient: STEPHAN LÓPEZ Exam Date: 09/16/2021 : 1960 Gender:F Ordering : GAURAV GAYLA MARTINEZ [facility] Admission #: [id number] Family : Order #: [id number] CLICK HERE TO VIEW EXAM ECHOCARDIOGRAM REPORT [...] on 09/17/2021 at 13:02 Normal [facility] CBC AUTO DIFFon 08-04-2021 BASO # 0.1 103/ul Normal 0.0-0.1 [facility] Comment on above: Performed By: #### C BC #### [facility] [address] [address] [address] Yariel Herrera Basophils/100 WBC (Bld) 0.6 % Normal 0.2-2.0 [facility] Comment on above: Performed By: #### C BC #### [facility] [address] [address] [address] Yariel Herrera EO # 0.1 103/ul Normal 0.0-0.7 [facility] Comment on above: Performed By: #### C BC #### [facility] [address] [address] [address] Yariel Herrera Eosinophils/100 WBC (Bld) 0.9 % Normal 0.9-7.0 [facility] Comment on above: Performed By: #### C BC #### [facility] [address] [address] [address] Yariel Herrera Erythrocyte distribution width (RBC) [Ratio] 13.8 % Normal 11.0-15.0 [facility] Comment on above: Performed By: #### C BC #### [facility] [address] [place] [address] Dr. Yariel Herrera Hematocrit (Bld) [Volume fraction] 47.1 % Normal 36.0-48.0 [facility] Comment on above: Performed By: #### C BC #### [facility] [address] [address] [address] Yariel Herrera Hemoglobin (Bld) [Mass/Vol] 15.2 g/dL Normal 12.0-16.0 [facility] Comment on above: Performed By: #### C BC #### [facility] [id number] Yariel Herrera IG # 0.04 10e3/ul Critically high 0.00-0.03 [facility] Comment on above: Performed By: #### C BC #### [facility] [address] [address] [address] Yariel Herrera IG % 0.3 % Normal 0.0-0.5 [facility] Comment on above: Performed By: #### C BC #### [facility] [address] [address] [address] Yariel Herrera LYMPH # 3.7 103/ul Normal 1.2-3.8 [facility] Comment on above: Performed By: #### C BC #### [facility] [address] [place] [address] Dr. Yariel Herrera Lymphocytes/100 WBC (Bld) 30.6 % Normal 20.5-60.0 [facility] Comment on above: Performed By: #### C BC #### [facility] [address] [place] [address] Dr. Yariel Herrera MANUAL DIFF REQ NO Normal [facility] Comment on above: Performed By: #### C BC #### [facility] [address] [place] [address] Dr. Yariel Herrera MCH (RBC) [Entitic mass] 32.0 pg Normal 26.7-34.0 [facility] Comment on above: Performed By: #### C BC #### [facility] [address] [place] [address] Dr. Yariel Herrera MCHC (RBC) [Mass/Vol] 32.3 g/dL Normal 29.9-35.2 [facility] Comment on above: Performed By: #### C BC #### [facility] [address] [place] [address] Dr. Yariel Herrera MCV (RBC) [Entitic vol] 99.2 fL Critically high 81.0-99.0 [facility] Comment on above: Performed By: #### C BC #### [facility] [address] [place] [address] Dr. Yariel Herrera MONO # 0.9 103/ul Critically high 0.3-0.8 [facility] Comment on above: Performed By: #### C BC #### [facility] [address] [place], [place] [id number] Dr. Yariel Herrera Monocytes/100 WBC (Bld) 7.4 % Normal 1.7-12.0 [facility] Comment on above: Performed By: #### C BC #### [facility] [address] [place] [address] Dr. Yariel Herrera NEUT # 7.3 103/ul Critically high 1.4-6.5 [facility] Comment on above: Performed By: #### C BC #### [facility] [address] [place] [address] Dr. Yariel Herrera Neutrophils/100 WBC (Bld) 60.2 % Normal 43.0-75.0 [facility] Comment on above: Performed By: #### C BC #### [facility] [address] [place] [address] Dr. Yariel Herrera Platelet mean volume (Bld) [Entitic vol] 11.7 fL Normal 9.5-13.5 [facility] Comment on above: Performed By: #### C BC #### [facility] [address] [place] [address] Dr. Yariel Herrera PLT 330 103/ul Normal 150-450 [facility] Comment on above: Performed By: #### C BC #### [facility] [address] [place] [address] Dr. Yariel Herrera RBC 4.75 106/ul Normal 4.20-5.40 [facility] Comment on above: Performed By: #### C BC #### [facility] [address] [place] [address] Dr. Yariel Herrera WBC 12.1 103/ul Critically high 4.0-11.0 [facility] Comment on above: Performed By: #### C BC #### [facility] [address] [place] [address] Dr. Yariel Herrera FREE T3on 08-04-2021 FREE T3 2.46 pg/mlL Normal 2.18-3.98 [facility] Comment on above: Performed By: #### C BC #### [facility] [address] [place] [address] Dr. Yariel Herrera FREE T4on 08-04-2021 Free T4 [Mass/Vol] 1.08 ng/dL Normal 0.76-1.46 [facility] Comment on above: Performed By: #### F T4 #### [facility] [address] [place] [address] Dr. Yariel Herrera PROF 14(COMP METB)on 022 Albumin [Mass/Vol] 4.2 g/dL Normal 3.4-5.0 [facility] Comment on above: Performed By: #### C BC #### [facility] [address] [place] [address] Dr. Yariel Herrera Albumin/Globulin [Mass ratio] 1.2 {ratio} Normal [facility] Comment on above: Performed By: #### C BC #### [facility] [address] [place] [address] Dr. Yariel Herrera ALP [Catalytic activity/Vol] 87 U/L Normal 46-116 [facility] Comment on above: Performed By: #### C BC #### [facility] [address] [place] [address] Dr. Yariel Herrera ALT [Catalytic activity/Vol] 25 U/L Normal 14-59 [facility] Comment on above: Performed By: #### C BC #### [facility] [address] [place] [address] Dr. Yariel Herrera Anion gap [Moles/Vol] 13.3 mmol/L Normal [facility] Comment on above: Performed By: #### C BC #### [facility] [address] [place] [address] Dr. Yariel Herrera AST [Catalytic activity/Vol] 15 U/L Normal 15-37 [facility] Comment on above: Performed By: #### C BC #### [facility] [address] [place] [address] Dr. Yariel Herrera Bilirubin [Mass/Vol] 0.5 mg/dL Normal 0.2-1.0 [facility] Comment on above: Performed By: #### C BC #### [facility] [address] [place] [address] Dr. Yariel Herrera Calcium [Mass/Vol] 9.6 mg/dL Normal 8.5-10.1 [facility] Comment on above: Performed By: #### C BC #### [facility] [address] [place] [address] Dr. Yariel Herrera Chloride [Moles/Vol] 103 mmol/L Normal 98-107 [facility] Comment on above: Performed By: #### C BC #### [facility] [address] [address] [address] Yariel Herrera CO2 [Moles/Vol] 28.9 mmol/L Normal 21.0-32.0 [facility] Comment on above: Performed By: #### C BC #### [facility] [address] [place] [address] Dr. Yariel Herrera Creatinine [Mass/Vol] 0.84 mg/dL Normal 0.55-1.02 [facility] Comment on above: Performed By: #### C BC #### [facility] [address] [place] [address] Dr. Yariel Herrera EGFR-AF MACEDONIAN >60 Normal >=60 [facility] Comment on above: Performed By: #### C BC #### [facility] [address] [place] [address] Dr. Yariel Herrera EGFR-NON AF MACEDONIAN >60 Normal >=60 [facility] Comment on above: Performed By: #### C BC #### [facility] [address] [place] [address] Dr. Yariel Herrera Globulin (S) [Mass/Vol] 3.4 g/dL Normal [facility] Comment on above: Performed By: #### C BC #### [facility] [address] [place] [address] Dr. Yariel Herrera Glucose [Mass/Vol] 111 mg/dL Critically high 74-106 [facility] Comment on above: Performed By: #### C BC #### [facility] [address] [place] [address] Dr. Yariel Herrera Potassium [Moles/Vol] 4.2 mmol/L Normal 3.5-5.1 [facility] Comment on above: Performed By: #### C BC #### [facility] [address] [address] [address] Yariel Herrera Protein [Mass/Vol] 7.6 g/dL Normal 6.4-8.2 [facility] Comment on above: Performed By: #### C BC #### [facility] [address] [address] [address] Yariel Herrera Sodium [Moles/Vol] 141 mmol/L Normal 136-145 [facility] Comment on above: Performed By: #### C BC #### [facility] [address] [address] [address] Yariel Herrera Urea nitrogen [Mass/Vol] 15.0 mg/dL Normal 7.0-18.0 [facility] Comment on above: Performed By: #### C BC #### [facility] [address] [address] [address] Yariel Herrera Urea nitrogen/Creatinine [Mass ratio] 17.9 mg/mg Normal [facility] Comment on above: Performed By: #### C BC #### [facility] [address] [address] [address] Yariel Herrera TSHon 08-04-2021 TSH 1.073 uIU/mL Normal 0.358-3.740 [facility] Comment on above: Performed By: #### C BC #### [facility] [address] [address] [address] Yariel Herrera TSH RANGE SEE BELOW Normal [facility] Comment on above: Result Comment: <0.3 4 UIU/ml HYPERTHYROID 0.34-5.60 UIU/ml EUTHYROID >5.60 UIU/ml HYPOTHYROID Performed By: #### C BC #### [facility] [address] [place] [address] Dr. Yariel Herrera Encounters Encounter Date Encounter Type Care Provider Facility Start: 07-27-2023 End: 07-27-2023 ambulatory GAYLA MARTINEZ Not Available Start: 07-05-2023 End: 07-05-2023 ambulatory Andrius Vytautas Giedraitis MD Facility:[facility] Start: 06-14-2023 End: 06-14-2023 ambulatory Lara Mar MD Facility:[facility] Start: 05-25-2023 End: 05-25-2023 ambulatory Physician Unavailable Facility:[facility] Start: 05-10-2023 End: 05-10-2023 ambulatory Lara Mar MD Facility:[facility] Start: 05-04-2023 End: 05-04-2023 ambulatory Dasha Waggoner PA-C Facility:[facility]uro[facility]urg [facility] Start: 04-26-2023 End: 04-26-2023 ambulatory GAYLA MICHELLE Not Available Start: 04-08-2023 Clinisync Result Encounter Gayla Martinez SKILLED LABOR Work Phone: [facility] Unsolicited Start: 04-08-2023 Clinisync Result Encounter Gayla Martinez SKILLED LABOR Work Phone: [facility] Unsolicited Start: 04-07-2023 Refill Gayla Michelle SKILLED LABOR Work Phone: [facility] Comment on above: COPD with exacerbati on (CMS/[facility]) (Primary Dx) Start: 02-08-2023 End: 02-08-2023 ambulatory Dasha Waggoner PA-C Facility:[facility]uro[facility]urg [facility] Start: 01-25-2023 End: 01-25-2023 ambulatory GAYLA AICAbebeHOLZ Not Available Start: 01-19-2023 End: 01-19-2023 ambulatory [facility] Start: 12-22-2022 End: 12-22-2022 ambulatory Dasha Wagogner PA-C Facility:[facility]urosurg [facility] Start: 11-26-2022 End: 11-26-2022 ambulatory Dashaeyad Waggoner PA-C Facility:[facility]uro[facility]urg [facility] Start: 11-23-2022 End: 11-23-2022 ambulatory Lara Mar MD Facility:[facility] Start: 10-15-2022 End: 10-15-2022 ambulatory Dasha Waggoner PA-C Facility:[facility]uro[facility]urg [facility] Start: 09-16-2022 End: 09-16-2022 ambulatory Dasha Waggoner PA-C Facility:[facility]uro[facility]urg [facility] Start: 07-03-2022 End: 07-03-2022 ambulatory [facility] Start: 06-17-2022 End: 06-18-2022 ambulatory INA JOHNSON Facility:[facility] Start: 06-10-2022 End: 06-10-2022 ambulatory INA [facility] Start: 05-08-2022 End: 05-09-2022 ambulatory CARL RIVERAANI Facility:[facility] Start: 01-05-2022 End: 01-06-2022 ambulatory MOHAMAD DANNICHRISTINEANI Facility:[facility] Start: 11-05-2021 End: 11-06-2021 ambulatory DIRECTOR OF PHOTOGRAPHY GAYLA MICHELLE Facility:[facility] Start: 10-16-2021 End: 10-17-2021 ambulatory PRITID MIGUELANI Facility:[facility] Start: 09-16-2021 End: 09-17-2021 ambulatory DIRECTOR OF PHOTOGRAPHY GAYLA MICHELLE Facility:[facility] Start: 08-04-2021 End: 08-05-2021 ambulatory DIRECTOR OF PHOTOGRAPHY GAYLA MICHELLE Facility:[facility] Procedures Date Procedure Procedure Detail Performing Clinician Start: 04-08-2023 [facility] INFLUENZA A AND B AG Gayla Martinez SKILLED LABOR Work Phone: Start: 12-03-2022 Mammography Gayla jerome SKILLED LABOR Work Phone: Start: 04-20-2013 Colonoscopy Gayla jerome SKILLED LABOR Work Phone: Plan of Treatment Date Care Activity Detail Author Start: 09-08-2026 Screening for malign ant neoplasm of colon [facility] Start: 12-04-2023 Screening for malign ant neoplasm of breast Mammogram [facility] Start: 10-06-2023 ambulatory Ambulatory Facility:N [facility]jo[facility] Start: 08-22-2023 Influenza vaccination Influenza Vacc ine (#1) [facility] Comment on above: Postponed from 10/23 (Other Medical Reasons) Start: 07-24-2023 Screening for malign ant neoplasm of cervix Cervical Cancer Screening [facility] Comment on above: Postponed from 02/03 (Other Medical Reasons) Start: 05-30-2023 Urine screening for protein Diabetes: Urine Protein Screening [facility] Start: 04-26-2023 Glaucoma screening Diabetes: R etinopathy Screening [facility] Comment on above: Postponed from 02/03 (Other Medical Reasons) Start: 04-26-2023 End: 04-26-2023 Patient encounter procedure 04/26/2023 9:00 AM EST Office Visit [facility] [address] [place] [id number] Gayla Martinez NP [address] [place] [id number] [facility] Start: 03-05-2023 Hemoglobin A1c measurement Diabetes: Hemoglobin A1C [facility] Start: 02-03-1990 Screening for malign ant neoplasm of cervix HPV/Cotest [facility] Start: 02-03-1981 Screening for malign ant neoplasm of cervix Pap Smear [facility] Start: 1960 Screening for malign ant neoplasm of colon [facility] Immunizations Immunization Date Immunization Notes Care Provider Fa cili 01-06-2022 influenza virus vacc ine, unspecified formulation Gayla Martinez NP Work Phone: [facility] Payers Date Payer Category Payer Private Health Insurance 2022 Medicaid [employer] [place] [id number] 2022-Present [address] [place] [address] [id number] 1960 Unknown [id number] 2.16.840.1.328633.3.579.2. 593 1960 Unknown [id number] 2.16.840.1.431418.3.579.2. 593 1960 Unknown [id number] 2.16.840.1.433536.3.579.2. 593 1960 Unknown [id number] 2.16.840.1.759363.3.579.2. 593 1960 Unknown [id number] 2.16.840.1.933073.3.579.2. 593 1960 Unknown [id number] 2.16.840.1.026566.3.579.2. 593 1960 Unknown [id number] 2.16.840.1.811055.3.579.2. 593 1960 Unknown [id number] 2.16.840.1.552354.3.579.2. 1259 1960 Unknown [id number] 2.16.840.1.513161.3.579.2. 1259 1960 Unknown [id number] 2.16.840.1.310840.3.579.2. 1259 1960 Unknown [id number] 2.16.840.1.009801.3.579.2. 196 1960 Unknown [id number] 2.16.840.1.150820.3.579.2. 196 1960 Unknown [id number] 2.16.840.1.181928.3.579.2. 196 1960 Unknown [id number] 2.16.840.1.151338.3.579.2. 196 1960 Unknown [id number] 2.16.840.1.488907.3.579.2. 196 1960 Unknown [id number] 2.16.840.1.233439.3.579.2. 196 1960 Unknown [id number] 2.16.840.1.024957.3.579.2. 196 1960 Unknown [id number] 2.16.840.1.467576.3.579.2. 196 1960 Unknown [id number] 2.16.840.1.825579.3.579.2. 196 1960 Unknown [id number] 2.16.840.1.117919.3.579.2. 196 1960 Unknown [id number] 2.16.840.1.885589.3.579.2. 196 1960 Unknown [id number] 2.16.840.1.004177.3.579.2. 196 1960 Unknown [id number] 2.16.840.1.606325.3.579.2. 196 1959 Unknown [id number] 1959 Unknown [id number] Social History Date Type Detail Facility Start: 01-25-2023 Tobacco smoking stat [facility] Smokes tobacco daily [facility] History of tobacco use [facility]igarette [facility] Start: 01-25-2023 Cigarettes smoked cu rrent (pack per day) - Reported 0.5 [facility] Start: 01-25-2023 Tobacco use and exposure Smoke less tobacco non-user [facility] Start: 02-08-2023 Alcohol intake Lifetime non-d mariaa (finding) [facility] Start: 01-25-2023 Tobacco use panel [facility] Start: 1960 Sex Assigned At Not on file [facility] Medical Equipment Procedure Code Equipment Code Equipment Original Text Equi pment Identifier Dates 1 Device Daily as needed. [id number] Clinical Notes 06-10-2022 to 01-19-2023 Note Date & Type Note Facility 01-19-2023 Note Cardiovascular Medic [facility] SUBJECTIVE Chief Complaint Patient presents with Follow-up Hypertension Stephan López is a 62 y.o. female here for follow-up. HPI PMHx: HTN, pericardial effusion, HLD She denies any cardiac concerns today. She has back problems. She is 5 months s/p surgery and she is still recovering. She is following with pain management at [facility]. She is not currently checking her [...] needed. Dante Hand NP [facility] 01-19-2023 Note Patient here for 6 m [...] All other systems reviewed and are negative. [facility] 07-03-2022 Note [facility] 07-03[facility]2022 Note Hypertension is well controlled 120/84 Reviewed b/p log and overall her b/p is controlled with some outliers of high and low b/p. Renal function was normal s/p starting lisinopril [facility] 07-03-2022 Note Patient here for 1 m [...] All other systems reviewed and are negative. [facility] 07-03-2022 Note [facility] CARDIOLOGY PROGR ESS NOTE [...] effusion No concerning symptoms RTC 6 months [facility] 06-10-2022 Note F/U with PCP [facility] 06-10-2022 Note Hypertension is 145/ 99 uncontrolled Will start lisinopril 2.5 mg daily BMP in 1 week Start monitoring b/p at home and record on a log, RTC 1 month D/W pt about side effects of 1st dose low b/p and dry persistent cough [facility] 06-10-2022 Note Recent echo with not ed trivial effusion. No recent illness or any concerning symptoms [facility] 06-10-2022 Note [facility] CARDIOLOGY PROGR ESS NOTE [...] with PCP RTC 1 month for re-evaluation [facility] 06-10-2022 Note Patient here for 6 m o follow up pericardial effusion. Had echo in April 2022. Denies chest pain and SOB. Review of Systems Musculoskeletal: Positive for back pain. All other systems reviewed and are negative. [facility] Evaluation note Diagnosis COPD with exacerbation (CMS/HCC)- [...] and content) DATE CREATED AUTHOR 06/21/2022 [facility] DATE CREATED AUTHOR AUTHOR'S ORGANIZ ATION 03/20/2023 [facility] DATE CREATED AUTHOR AUTHOR'S ORGANIZ ATION 07/28/2023 [facility] EPIC DATE CREATED AUTHOR AUTHOR'S ORGANIZ ATION 08/26/2023 [facility] Care Teams (unrecognized sec tion and content) Outpatient Pharmacy Manager Relationship Specialty Start Date End Date Jim Deleon MD [address] [place] [address] PCP - General Family Medicine 09/18/22 Gayla Martinez NP [address] [place] [phone] Referring Physician Nurse Practitioner 09/18/22 Outpatient Pharmacy Manager Relationship Specialty Start Date End Date Jim Deleon MD [address] [place] [address] PCP - General Family Medicine 09/18/22 Gayla Martinez NP [address] [place] [phone] Referring Physician Nurse Practitioner 09/18/22 FOR RECORDS [...] BE BASED ON THE PRIMARY CLINICAL RECORDS. [employer] provides no warranty or guarantee of the accuracy or completeness of information in this document.
[2023-08-30 08:45] VITALS: BP 120/74; PULSE 99; TEMP 36.2; O2SAT 100
[2023-08-30 08:51] LABS: Glucometer 133 mg/dL (74-106)
[2023-08-30] MEDS: LIDOCAINE HCL 2% PF 100 MG/5 ML VIAL INJ (09:16)
[2023-08-30] MEDS: TRIAMCINOLONE ACETONIDE 40 MG/ML VIAL INJ (09:16)
[2023-08-30] MEDS: IOHEXOL 240 MG/ML - 50 ML VIAL INJ (09:16)
[2023-08-30] MEDS: BUPIVACAINE HCL 0.25% PF 25 MG/10 ML VIAL INJ (09:16)
[2023-08-30 09:18] VITALS: BP 116/72; BP 121/69; PULSE 88; PULSE 89; O2SAT 93; O2SAT 97
--- NOTE | 2023-08-30 09:19 | P.ON_ITS ---
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 The skin overlying the area was prepped and draped in standard sterile fashion using alcohol.? A 25-gauge needle was inserted towards the superior gluteal nerve innervating the right sacroiliac joint under direct fluoroscopic imaging.? Needle tip was advanced until the nerve was encountered.? We instilled a total of 0.5 mL of solution. Subsequently, the dorsal rami of L5, S1, and S2 were approached, and the procedure completed in the same fashion.? Postoperatively needles were removed.? The patient tolerated the procedure well without complication.? The patient reported reduction in pain symptoms postoper atively. Anesthesia: Local Surgeon: Lara Mar Pathology: none sent Condition: stable Disposition: no change
== END 2023-08-30 09:22 | disposition home or self-care (01) ==
LOC: SURGOUT 08:34
PROVIDERS: PCP Nurse Practitioner; Visit Provider Anesthesiology
DX: G58.8 Other specified mononeuropathies (principal)
CPT/HCPCS: 36415; 64450; 82948; J0665; J3301; Q9966

== ENCOUNTER 2023-09-15 09:43 | Outpatient (OUT) | payer OTHER, SELFPAY ==
--- OUTSIDE RECORDS SUMMARY | 2023-09-15 09:47 | XMS_ITS | CCD ---
Author Organization [facility] Care Team Providers Care Watch Technician Name Role Phone ALGHOEVELINEANI, MOHAMAD Attending Unavailable AICHHOLZ, DIRECTOR OF MARKET ANALYSIS GAYLA Primary Care Unavailable ALGHOTHANI, MOHAMAD Consulting Unavailable ALGHOTHANI, MOHAMAD Admitting Unavailable AICHHOLZ, DIRECTOR OF MARKET ANALYSIS GAYLA Primary Care Unavailable AICHHOLZ, DIRECTOR OF MARKET ANALYSIS GAYLA Admitting Unavailable AICHHOLZ, DIRECTOR OF MARKET ANALYSIS GAYLA Attending Unavailable AICHHOLZ, DIRECTOR OF MARKET ANALYSIS GAYLA Consulting Unavailable ALGHOTHANI, MOHAMAD Attending Unavailable AICHHOLZ, DIRECTOR OF MARKET ANALYSIS GAYLA Primary Care Unavailable ALGHOTHANI, MOHAMAD Consulting Unavailable ALGHOTHANI, MOHAMAD Admitting Unavailable ALGHOTHANI, MOHAMAD Attending Unavailable AICHHOLZ, DIRECTOR OF MARKET ANALYSIS GAYLA Primary Care Unavailable ALGHOTHANI, MOHAMAD Consulting Unavailable ALGHOTHANI, MOHAMAD Admitting Unavailable ALEX, INA Attending Unavailable ALEX, INA Admitting Unavailable ALEX, INA Consulting Unavailable AICHHOLZ, DIRECTOR OF MARKET ANALYSIS GAYLA Primary Care Unavailable AICHHOLZ, DIRECTOR OF MARKET ANALYSIS GAYLA Admitting Unavailable AICHHOLZ, DIRECTOR OF MARKET ANALYSIS GAYLA Attending Unavailable AICHHOLZ, DIRECTOR OF MARKET ANALYSIS GAYLA Consulting Unavailable AICHHOLZ, DIRECTOR OF MARKET ANALYSIS GAYLA Primary Care Unavailable AICHHOLZ, DIRECTOR OF MARKET ANALYSIS GAYLA Admitting Unavailable AICHHOLZ, DIRECTOR OF MARKET ANALYSIS GAYLA Attending Unavailable AICHHOLZ, DIRECTOR OF MARKET ANALYSIS GAYLA Consulting Unavailable AICHHOLZ, DIRECTOR OF MARKET ANALYSIS GAYLA Primary Care Unavailable ALEX, INA Attending Unavailable ALEX, INA Attending Unavailable DANTE HAND Attending Unavailable Aichholz SURVEY TECHNICIAN, Gayla Unavailable Pancho BOWIE, Jim Primary Care Provider SHIRAZ, GAYLA Attending Unavailable AICHHOLZ, GAYLA Attending Unavailable AICHHOLZ, GAYLA Attending Unavailable Isabela [...] Unavailab le Unavailable, Physician Primary Care Unavailab rose Snider III, MD, Delfino Freeman Consulting U navailable Edilson PA-C, Dasha Pedro Attending Unavailab rose Mar MD, Lara Amos Attending Unavailable Allergies Allergy Classification Reported Allergen(s) Allergy Type Date of Onset Reaction(s) Facility (3 sources) pregabalin; Translations: [PREGABALIN] Drug Allergy 3 [facility] Repository (1 source) No Known Medication Allergies; Translations: [No Known Medication Allergies] Propensity to adverse reactions to drug (disorder) [facility] Repository Medications Current Medications Medication Drug [...] oral solution (2 sources) alpha-Adrenergic Agonist, Uncompetitive Q-gxzsfr-N-aspartat e Receptor Antagonist, Sigma-1 Agonist Start: 04-07-2023 [...] undergone an L5-S1 transforaminal SVITLANA 05/10/2023 by [facility] pain management which did give her approximately 2 to 3 weeks of incomplete benefit. She is planned for bilateral sacroiliac joint injections in the near future. The patient has discontinued her LSO brace that continues her electromagnetic stimulator 8 hours/day. Recent imaging (provider interpretation): Lumbar flexion/extension x-rays 04/30/2023 at [facility] reveals straightening of lumbar lordosis. Evidence of L3-5 posterior spinal fusion with instrumentation and interbody fusion L4-5. No evidence of hardware fracture or pullout. Patient found to have degenerative disc disease L2-3 and L5-S1. There is slight retrolisthesis L2-3 as well as unchanged anterior listhesis at her surgerized L4-5 segment. No evidence of dynamic instability. CT lumbar spine 02/03/2023 at [facility] reveals evidence of L3-5 posterior [...] prior imaging. CT lumbar spine 10/14/2022 at [facility] reveals evidence of L3-5 decompression [...] which c (more content not included)... Normal [facility] INFLUENZA A AND B AGon 0 04-08-2023 INFLUENZA VIRUS A ANTIGEN Positive Abnormal [facility] Comment on above: NOTE: Live attenuate d influenza vaccine viruses can cause a positive result for a rapid influenza diagnostic test if administered up to 7 days prior to rapid testing. INFLUENZA VIRUS B ANTIGEN Negative [facility] Comment on above: Negative for Flu B p rotein antigen. Infection due to Flu B cannot be ruled out. Flu B antigen in the sample may be below the detection limit of the test. Interpretation and review of laboratory results Abnormal [facility] 36on 03-19-2023 36 Please let her know her labs showed normal kidney function. Can continue lisinopril. Thank you Normal [facility] Telephoneon 03-19-2023 Telephone [id number] James López 1960 F Date Provider Department Center 03/19/2023 DANTE BAIG [facility] Family History Problem Relation Age of Onset Other Mother Heart attack Father Other Father Other Father Other Maternal Grandmother Family Status - Relation Status Age at Mother Father Maternal Grandmother Normal [facility] Neurosurgery Office/Clinic N oteon 02-08-2023 [...] and tizanidine as provided by pain management ([facility] pain management) only as needed and has not yet returned to NSAID medication. She continues to utilize nicotine and understands the deleterious effects of nicotine on her overall health and bony arthrodesis. Recent imaging (provider interpretation): CT lumbar spine 02/03/2023 at [facility] reveals evidence of L3-5 posterior [...] prior imaging. CT lumbar spine 10/14/2022 at [facility] reveals evidence of L3-5 decompression [...] bladder inc (more content not included)... Normal [facility] Office Visiton 01-19-2023 Follow-up visit [id number] James López 1960 F Date Provider Department Center 01/19/2023 Ese-DANTE HAND Family History Problem Relation Age of Onset Other Mother Heart attack Father Other Father Other Father Other Maternal Grandmother Family Status - Relation Status Age at Mother Father Maternal Grandmother Level of Service:03548 [place] OFFICE/OUTPATIENT ESTABLISHED LOW MDM 20-29 MIN Reason for Visit and Comments: Follow-up [799799] Hypertension [903070] Normal [facility] Neurosurgery Office/Clinic Yair pittman 12-22-2022 Neurosurgery Office/Clinic [...] 2 times per week. She follows with [facility] pain management which is a transition from [facility] pain management group. She continues [...] prior imaging. CT lumbar spine 10/14/2022 at [facility] reveals evidence of L3-5 decompression [...] demonstrates normal respiratory effort She presents in LSO cinch lock brace with proper fit and alignment. This was removed at the time of today's visit for incision evaluation. Lumbosacral incision appears well-healed and without erythema, edema, drainage or warmth. She notes mild tenderness (more content not included)... Normal [facility] Neurosurgery Office/Clinic N zain 11-26-2022 Neurosurgery [...] she recently transferred pain management care from [facility] to [facility]. Per the patient, they eventually would like her to initiate hot water physical therapy though only after receiving clearance from this office. Recent imaging (provider interpretation): CT lumbar spine 10/14/2022 at [facility] reveals evidence of L3-5 decompression [...] normal respiratory effort She presents in [facility] lock brace with proper fit and [...] lower extre (more content not included)... Normal [facility] Neurosurgery Office/Clinic N zain 10-15-2022 Neurosurgery [...] (provider interpretation): CT lumbar spine 10/14/2022 at [facility] reveals evidence of L3-5 decompression [...] Lumbar w/o (more content not included)... Normal [facility] Provider Letteron 10-15-2022 Provider Letter [facility] [address], [phone] [id number] Date: 10/15/2022 17:05:57 To Whom It May Concern: This is to verify that Stephan López was under our care on 10/15/2022 16:00:00. Stated patient underwent an L3-5 posterior spinal fusion on 08/21/22 with instrumentation utilizing [employer]tronic osteogrip titanium screws. If you have any questions or concerns please call our office at [phone]. Thank you, Dasha Waggoner PA-C [facility] Neurosurgery Office/Clinic N oteon 09-16-2022 Neurosurgery [...] postoperative Lovenox dosing as recommended by her coal inspector for strong family history of blood clots. [...] and manner are appropriate. She presents in [facility] lock brace which was removed at [...] No redness (more content not included)... Normal [facility] Office Visiton 07-03-2022 Follow-up visit [id number] James López 1960 F Date Provider Department Center 07/03/2022 Dory-INA JOHNSON [facility] Family History Problem Relation Age of Onset Other Mother Heart attack Father Other Father Other Father Other Maternal Grandmother Family Status - Relation Status Age at Mother Father Maternal Grandmother Level of Service:66490 [place] OFFICE/OUTPATIENT ESTABLISHED LOW MDM 20-29 MIN Reason for Visit and Comments: Hypertension [601296] pericardial effusion [Other] Normal [facility] PROF CHEM 8 (BAS METB)on Anion gap [Moles/Vol] 12.9 mmol/L Normal [facility] Comment on above: Performed By: #### C BC #### [facility] [address] [address] [address] Yariel Herrera Calcium [Mass/Vol] 9.0 mg/dL Normal 8.5-10.1 [facility] Comment on above: Performed By: #### C BC #### [facility] [address] [address] [address] Yariel Herrera Chloride [Moles/Vol] 106 mmol/L Normal 98-107 [facility] Comment on above: Performed By: #### C BC #### [facility] [address] [place] [address] Dr. Yariel Herrera CO2 [Moles/Vol] 28.3 mmol/L Normal 21.0-32.0 [facility] Comment on above: Performed By: #### C BC #### [facility] [address] [address] [address] Yariel Herrera Creatinine [Mass/Vol] 0.81 mg/dL Normal 0.55-1.02 [facility] Comment on above: Performed By: #### C BC #### [facility] [address] [place] [address] Dr. Yariel Herrera EGFR-AF RUSSIAN >60 Normal >=60 [facility] Comment on above: Performed By: #### C BC #### [facility] [address] [address] [address] Yariel Herrera EGFR-NON AF RUSSIAN >60 Normal >=60 [facility] Comment on above: Performed By: #### C BC #### [facility] [address] [place] [address] Dr. Yariel Herrera Glucose [Mass/Vol] 103 mg/dL Normal 74-106 [facility] Comment on above: Performed By: #### C BC #### [facility] [address] [place] [address] Dr. Yariel Herrera Potassium [Moles/Vol] 4.2 mmol/L Normal 3.5-5.1 [facility] Comment on above: Performed By: #### C BC #### [facility] [address] [address] [address] Yariel Herrera Sodium [Moles/Vol] 143 mmol/L Normal 136-145 [facility] Comment on above: Performed By: #### C BC #### [facility] [address] [address] [address] Yariel Herrera Urea nitrogen [Mass/Vol] 9.0 mg/dL Normal 7.0-18.0 [facility] Comment on above: Performed By: #### C BC #### [facility] [address] [address] [address] Yariel Herrera Urea nitrogen/Creatinine [Mass ratio] 11.1 mg/mg Normal [facility] Comment on above: Performed By: #### C BC #### [facility] [address] [address] [address] Yariel Herrera 37on 06-10-2022 37 Start lisinopril 2.5 mg daily, Have labs/blood checked in 1 week for kidney function Monitor b/p at home 1-2 times/day and record on a log- bring with her to next visit. If you notice a dry, persistent cough- stop lisinopril and call office please. Normal [facility] Office Visiton 06-10-2022 Follow-up visit [id number] James López 1960 F Date Provider Department Center 06/10/2022 INA JONES [facility] Family History Problem Relation Age of Onset Other Mother Heart attack Father Other Father Other Father Other Maternal Grandmother Family Status - Relation Status Age at Mother Father Maternal Grandmother Level of Service:35205 [place] OFFICE/OUTPATIENT ESTABLISHED MOD MDM 30-39 MIN [facility] ECHOCARDIO M/2D COMPLETEon 0 05-08-2022 ECHOCARDIO M/2D COMPLETE Patient: STEPHAN LÓPEZ Exam Date: 05/08/2022 : 1960 Gender:F Ordering : CARL WILLIS Admission #: [id number] Family : GAURAV MARTINEZ [facility] Order #: [id number] CLICK HERE TO VIEW EXAM ECHOCARDIOGRAM REPORT [...] Elie Garzon M.D. on 05/08/2022 at 14:20 [facility] ABHINAV by IFAon 01-08-2022 Antinuclear Antibodies, IFA Negative Normal [facility] Comment on above: Result Comment: Nega tive <1:80 Borderline 1:80 Positive >1:80 ICAP nomenclature: AC-0 For more information about Hep-2 cell patterns use ANApatterns.org, the official website for the International Consensus on Antinuclear Antibody (ABHINAV) Patterns (ICAP). Performed By: #### A NAIFA #### [facility] [address] [place] [address] Dr. Yariel Herrera CBC AUTO DIFFon 01-05-2022 BASO # 0.1 103/ul Normal 0.0-0.1 [facility] Comment on above: Performed By: #### C BC #### [facility] [address] [place] [address] Dr. Yariel Herrera Basophils/100 WBC (Bld) 0.6 % Normal 0.2-2.0 [facility] Comment on above: Performed By: #### C BC #### [facility] [address] [place] [address] Dr. Yariel Herrera EO # 0.2 103/ul Normal 0.0-0.7 [facility] Comment on above: Performed By: #### C BC #### [facility] [address] [place] [address] Dr. Yariel Herrera Eosinophils/100 WBC (Bld) 1.4 % Normal 0.9-7.0 [facility] Comment on above: Performed By: #### C BC #### [facility] [address] [place] [address] Dr. Yariel Herrera Erythrocyte distribution width (RBC) [Ratio] 13.6 % Normal 11.0-15.0 [facility] Comment on above: Performed By: #### C BC #### [facility] [address] [place] [address] Dr. Yariel Herrera Hematocrit (Bld) [Volume fraction] 46.6 % Normal 36.0-48.0 [facility] Comment on above: Performed By: #### C BC #### [facility] [address] [place] [address] Dr. Yariel Herrera Hemoglobin (Bld) [Mass/Vol] 15.4 g/dL Normal 12.0-16.0 [facility] Comment on above: Performed By: #### C BC #### [facility] [address] [place] [address] Dr. Yariel Herrera IG # 0.03 10e3/ul Normal 0.00-0.03 [facility] Comment on above: Performed By: #### C BC #### [facility] [address] [place] [address] Dr. Yariel Herrera IG % 0.2 % Normal 0.0-0.5 [facility] Comment on above: Performed By: #### C BC #### [facility] [address] [place] [address] Dr. Yariel Herrera LYMPH # 4.2 103/ul Critically high 1.2-3.8 [facility] Comment on above: Performed By: #### C BC #### [facility] [address] [place] [address] Dr. Yariel Herrera Lymphocytes/100 WBC (Bld) 31.3 % Normal 20.5-60.0 [facility] Comment on above: Performed By: #### C BC #### [facility] [address] [place] [address] Dr. Yariel Herrera MANUAL DIFF REQ NO Normal [facility] Comment on above: Performed By: #### C BC #### [facility] [address] [place] [address] Dr. Yariel Herrera MCH (RBC) [Entitic mass] 31.6 pg Normal 26.7-34.0 [facility] Comment on above: Performed By: #### C BC #### [facility] [address] [place] [address] Dr. Yariel Herrera MCHC (RBC) [Mass/Vol] 33.0 g/dL Normal 29.9-35.2 [facility] Comment on above: Performed By: #### C BC #### [facility] [address] [place] [address] Dr. Yariel Herrera MCV (RBC) [Entitic vol] 95.7 fL Normal 81.0-99.0 [facility] Comment on above: Performed By: #### C BC #### [facility] [address] [place] [address] Dr. Yariel Herrera MONO # 0.9 103/ul Critically high 0.3-0.8 [facility] Comment on above: Performed By: #### C BC #### [facility] [address] [place] [address] Dr. Yariel Herrera Monocytes/100 WBC (Bld) 6.8 % Normal 1.7-12.0 [facility] Comment on above: Performed By: #### C BC #### [facility] [address] [place] [address] Dr. Yariel Herrera NEUT # 8.0 103/ul Critically high 1.4-6.5 [facility] Comment on above: Performed By: #### C BC #### [facility] [address] [place] [address] Dr. Yariel Herrera Neutrophils/100 WBC (Bld) 59.7 % Normal 43.0-75.0 [facility] Comment on above: Performed By: #### C BC #### [facility] [address] [place] [address] Dr. Yariel Herrera Platelet mean volume (Bld) [Entitic vol] 10.7 fL Normal 9.5-13.5 [facility] Comment on above: Performed By: #### C BC #### [facility] [address] [place] [address] Dr. Yariel Herrera PLT 340 103/ul Normal 150-450 [facility] Comment on above: Performed By: #### C BC #### [facility] [address] [place], [place] [id number] Dr. Yariel Herrera RBC 4.87 106/ul Normal 4.20-5.40 [facility] Comment on above: Performed By: #### C BC #### [facility] [address] [place] [address] Dr. Yariel Herrera WBC 13.4 103/ul Critically high 4.0-11.0 [facility] Comment on above: Performed By: #### C BC #### [facility] [address] [place] [address] Dr. Yariel Herrera FREE T4on 01-05-2022 Free T4 [Mass/Vol] 1.06 ng/dL Normal 0.76-1.46 [facility] Comment on above: Performed By: #### C BC #### [facility] [address] [place] [address] Dr. Yariel Herrera PROF 14(COMP METB)on 022 Albumin [Mass/Vol] 3.9 g/dL Normal 3.4-5.0 [facility] Comment on above: Performed By: #### C MP, TSH #### [facility] [address] [place] [address] Dr. Yariel Herrera Albumin/Globulin [Mass ratio] 1.1 {ratio} Normal [facility] Comment on above: Performed By: #### C MP, TSH #### [facility] [address] [place] [address] Dr. Yariel Herrera ALP [Catalytic activity/Vol] 99 U/L Normal 46-116 [facility] Comment on above: Performed By: #### C MP, TSH #### [facility] [address] [place] [address] Dr. Yariel Herrera ALT [Catalytic activity/Vol] 17 U/L Normal 14-59 [facility] Comment on above: Performed By: #### C MP, TSH #### [facility] [address] [place] [address] Dr. Yariel Herrera Anion gap [Moles/Vol] 10.1 mmol/L Normal [facility] Comment on above: Performed By: #### C MP, TSH #### [facility] [address] [place] [address] Dr. Yariel Herrera AST [Catalytic activity/Vol] 14 U/L Critically low 15-37 [facility] Comment on above: Performed By: #### C MP, TSH #### [facility] [address] [place] [address] Dr. Yariel Herrera Bilirubin [Mass/Vol] 0.3 mg/dL Normal 0.2-1.0 [facility] Comment on above: Performed By: #### C MP, TSH #### [facility] [address] [place] [address] Dr. Yariel Herrera Calcium [Mass/Vol] 9.4 mg/dL Normal 8.5-10.1 [facility] Comment on above: Performed By: #### C MP, TSH #### [facility] [address] [address] [address] Yariel Herrera Chloride [Moles/Vol] 103 mmol/L Normal 98-107 [facility] Comment on above: Performed By: #### C MP, TSH #### [facility] [address] [place] [address] Dr. Yariel Herrera CO2 [Moles/Vol] 30.9 mmol/L Normal 21.0-32.0 [facility] Comment on above: Performed By: #### C MP, TSH #### [facility] [address] [place] [address] Dr. Yariel Herrera Creatinine [Mass/Vol] 0.88 mg/dL Normal 0.55-1.02 [facility] Comment on above: Performed By: #### C MP, TSH #### [facility] [address] [place] [address] Dr. Yariel Herrera EGFR-AF RUSSIAN >60 Normal >=60 [facility] Comment on above: Performed By: #### C MP, TSH #### [facility] [address] [place] [address] Dr. Yariel Herrera EGFR-NON AF RUSSIAN >60 Normal >=60 [facility] Comment on above: Performed By: #### C MP, TSH #### [facility] [address] [place] [address] Dr. Yariel Herrera Globulin (S) [Mass/Vol] 3.5 g/dL Normal [facility] Comment on above: Performed By: #### C MP, TSH #### [facility] [address] [place] [address] Dr. Yariel Herrera Glucose [Mass/Vol] 117 mg/dL Critically high 74-106 [facility] Comment on above: Performed By: #### C MP, TSH #### [facility] [address] [address] [address] Yariel Herrera Potassium [Moles/Vol] 4.0 mmol/L Normal 3.5-5.1 [facility] Comment on above: Performed By: #### C MP, TSH #### [facility] [address] [place] [address] Dr. Yariel Herrera Protein [Mass/Vol] 7.4 g/dL Normal 6.4-8.2 [facility] Comment on above: Performed By: #### C MP, TSH #### [facility] [address] [place] [address] Dr. Yariel Herrera Sodium [Moles/Vol] 140 mmol/L Normal 136-145 [facility] Comment on above: Performed By: #### C MP, TSH #### [facility] [address] [place] [address] Dr. Yariel Herrera Urea nitrogen [Mass/Vol] 18.0 mg/dL Normal 7.0-18.0 [facility] Comment on above: Performed By: #### C MP, TSH #### [facility] [address] [place] [address] Dr. Yariel Herrera Urea nitrogen/Creatinine [Mass ratio] 20.5 mg/mg Normal [facility] Comment on above: Performed By: #### C MP, TSH #### [facility] [address] [place] [address] Dr. Yraiel Herrera TSHon 01-05-2022 TSH 1.380 uIU/mL Normal 0.358-3.740 [facility] Comment on above: Performed By: #### C MP, TSH #### [facility] [address] [place] [address] Dr. Yariel Herrera GLYCOHEMOGLOBIN A1Con 2021 ADA RECOMMENDATION SEE BELOW Normal [facility] Comment on above: Result Comment: ADA RECOMMENDED LIMIT 4.0 - 6.0 ADA THERAPEUTIC TARGET < 7.0 ACTION SUGGESTED > 7.0 Performed By: #### A 1C #### [facility] [address] [place], [place] [address] Dr. Yariel Herrera Glucose [Mass/Vol] 137 mg/dL Normal [facility] Comment on above: Performed By: #### A 1C #### [facility] [address] [place], [place] [address] Dr. Yariel Herrera HbA1c (Bld) [Mass fraction] 6.4 % Critically high 4.5-6.2 [facility] Comment on above: Performed By: #### A 1C #### [facility] [address] [place], [place] [address] Dr. Yariel Herrera ECHOCARDIO M/2D COMPLETEon 0 10-16-2021 ECHOCARDIO M/2D COMPLETE Patient: STEPHAN LÓPEZ Exam Date: 10/16/2021 : 1960 Gender:F Ordering : PRITIBrett CECELIAROBE Admission #: [id number] Family : Order #: [id number] CLICK HERE TO VIEW EXAM ECHOCARDIOGRAM REPORT [...] Melvin M.D. on 10/16/2021 at 17:12 Normal [facility] ECHOCARDIO M/2D COMPLETEon 0 09-16-2021 ECHOCARDIO M/2D COMPLETE Patient: STEPHAN LÓPEZ Exam Date: 09/16/2021 : 1960 Gender:F Ordering : GAURAV GAYLAKatty MARTINEZ [facility] Admission #: [id number] Family : Order #: [id number] CLICK HERE TO VIEW EXAM ECHOCARDIOGRAM REPORT [...] M.D. on 09/17/2021 at 13:02 Normal [facility] CBC AUTO DIFFon 08-04-2021 BASO # 0.1 103/ul Normal 0.0-0.1 [facility] Comment on above: Performed By: #### C BC #### [facility] [address] [address] [address] Yariel Herrera Basophils/100 WBC (Bld) 0.6 % Normal 0.2-2.0 [facility] Comment on above: Performed By: #### C BC #### [facility] [address] [address] [address] Yariel Herrera EO # 0.1 103/ul Normal 0.0-0.7 [facility] Comment on above: Performed By: #### C BC #### [facility] [address] [address] [address] Yariel Herrera Eosinophils/100 WBC (Bld) 0.9 % Normal 0.9-7.0 [facility] Comment on above: Performed By: #### C BC #### [facility] [address] [address] [address] Yariel Herrera Erythrocyte distribution width (RBC) [Ratio] 13.8 % Normal 11.0-15.0 [facility] Comment on above: Performed By: #### C BC #### [facility] [address] [address] [address] Yariel Herrera Hematocrit (Bld) [Volume fraction] 47.1 % Normal 36.0-48.0 [facility] Comment on above: Performed By: #### C BC #### [facility] [address] [address] [address] Yariel Herrera Hemoglobin (Bld) [Mass/Vol] 15.2 g/dL Normal 12.0-16.0 [facility] Comment on above: Performed By: #### C BC #### [facility] [address] [address] [address] Yariel Herrera IG # 0.04 10e3/ul Critically high 0.00-0.03 [facility] Comment on above: Performed By: #### C BC #### [facility] [address] [place] [address] Dr. Yariel Herrera IG % 0.3 % Normal 0.0-0.5 [facility] Comment on above: Performed By: #### C BC #### [facility] [address] [place] [address] Dr. Yariel Herrera LYMPH # 3.7 103/ul Normal 1.2-3.8 [facility] Comment on above: Performed By: #### C BC #### [facility] [address] [place] [address] Dr. Yariel Herrera Lymphocytes/100 WBC (Bld) 30.6 % Normal 20.5-60.0 [facility] Comment on above: Performed By: #### C BC #### [facility] [address] [place] [address] Dr. Yariel Herrera MANUAL DIFF REQ NO Normal [facility] Comment on above: Performed By: #### C BC #### [facility] [address] [place] [address] Dr. Yariel Herrera MCH (RBC) [Entitic mass] 32.0 pg Normal 26.7-34.0 [facility] Comment on above: Performed By: #### C BC #### [facility] [address] [place] [address] Dr. Yariel Herrera MCHC (RBC) [Mass/Vol] 32.3 g/dL Normal 29.9-35.2 [facility] Comment on above: Performed By: #### C BC #### [facility] [address] [place] [address] Dr. Yariel Herrera MCV (RBC) [Entitic vol] 99.2 fL Critically high 81.0-99.0 [facility] Comment on above: Performed By: #### C BC #### [facility] [address] [place] [address] Dr. Yariel Herrera MONO # 0.9 103/ul Critically high 0.3-0.8 [facility] Comment on above: Performed By: #### C BC #### [facility] [address] [address] [address] Yariel Herrera Monocytes/100 WBC (Bld) 7.4 % Normal 1.7-12.0 [facility] Comment on above: Performed By: #### C BC #### [facility] [address] [address] [address] Yariel Herrera NEUT # 7.3 103/ul Critically high 1.4-6.5 [facility] Comment on above: Performed By: #### C BC #### [facility] [address] [place] [address] Dr. Yariel Herrera Neutrophils/100 WBC (Bld) 60.2 % Normal 43.0-75.0 [facility] Comment on above: Performed By: #### C BC #### [facility] [address] [place] [address] Dr. Yariel Herrera Platelet mean volume (Bld) [Entitic vol] 11.7 fL Normal 9.5-13.5 [facility] Comment on above: Performed By: #### C BC #### [facility] [address] [place] [address] Dr. Yariel Herrera PLT 330 103/ul Normal 150-450 [facility] Comment on above: Performed By: #### C BC #### [facility] [address] [place] [address] Dr. Yariel Herrera RBC 4.75 106/ul Normal 4.20-5.40 [facility] Comment on above: Performed By: #### C BC #### [facility] [address] [place] [address] Dr. Yariel Herrera WBC 12.1 103/ul Critically high 4.0-11.0 [facility] Comment on above: Performed By: #### C BC #### [facility] [address] [place] [address] Dr. Yariel Herrera FREE T3on 08-04-2021 FREE T3 2.46 pg/mlL Normal 2.18-3.98 [facility] Comment on above: Performed By: #### C BC #### [facility] [address] [place] [address] Dr. Yariel Herrera FREE T4on 08-04-2021 Free T4 [Mass/Vol] 1.08 ng/dL Normal 0.76-1.46 [facility] Comment on above: Performed By: #### F T4 #### [facility] [address] [place] [address] Dr. Yariel Herrera PROF 14(COMP METB)on 022 Albumin [Mass/Vol] 4.2 g/dL Normal 3.4-5.0 [facility] Comment on above: Performed By: #### C BC #### [facility] [address] [place] [address] Dr. Yariel Herrera Albumin/Globulin [Mass ratio] 1.2 {ratio} Normal [facility] Comment on above: Performed By: #### C BC #### [facility] [address] [place] [address] Dr. Yariel Herrera ALP [Catalytic activity/Vol] 87 U/L Normal 46-116 [facility] Comment on above: Performed By: #### C BC #### [facility] [address] [place] [address] Dr. Yariel Herrera ALT [Catalytic activity/Vol] 25 U/L Normal 14-59 [facility] Comment on above: Performed By: #### C BC #### [facility] [address] [place] [address] Dr. Yariel Herrera Anion gap [Moles/Vol] 13.3 mmol/L Normal [facility] Comment on above: Performed By: #### C BC #### [facility] [address] [place] [address] Dr. Yariel Herrera AST [Catalytic activity/Vol] 15 U/L Normal 15-37 [facility] Comment on above: Performed By: #### C BC #### [facility] [address] [place] [address] Dr. Yariel Herrera Bilirubin [Mass/Vol] 0.5 mg/dL Normal 0.2-1.0 [facility] Comment on above: Performed By: #### C BC #### [facility] [address] [address] [address] Yariel Herrera Calcium [Mass/Vol] 9.6 mg/dL Normal 8.5-10.1 [facility] Comment on above: Performed By: #### C BC #### [facility] [address] [address] [address] Yariel Herrera Chloride [Moles/Vol] 103 mmol/L Normal 98-107 [facility] Comment on above: Performed By: #### C BC #### [facility] [address] [address] [address] Yariel Herrera CO2 [Moles/Vol] 28.9 mmol/L Normal 21.0-32.0 [facility] Comment on above: Performed By: #### C BC #### [facility] [address] [place] [address] Dr. Yariel Herrera Creatinine [Mass/Vol] 0.84 mg/dL Normal 0.55-1.02 [facility] Comment on above: Performed By: #### C BC #### [facility] [address] [place] [address] Dr. Yariel Herrera EGFR-AF RUSSIAN >60 Normal >=60 [facility] Comment on above: Performed By: #### C BC #### [facility] [address] [place] [address] Dr. Yariel Herrera EGFR-NON AF RUSSIAN >60 Normal >=60 [facility] Comment on above: Performed By: #### C BC #### [facility] [address] [place] [address] Dr. Yariel Herrera Globulin (S) [Mass/Vol] 3.4 g/dL Normal [facility] Comment on above: Performed By: #### C BC #### [facility] [address] [place] [address] Dr. Yariel Herrera Glucose [Mass/Vol] 111 mg/dL Critically high 74-106 T [facility] Comment on above: Performed By: #### C BC #### [facility] [address] [place] [address] Dr. Yariel Herrera Potassium [Moles/Vol] 4.2 mmol/L Normal 3.5-5.1 [facility] Comment on above: Performed By: #### C BC #### [facility] [address] [address] [address] Yariel Herrera Protein [Mass/Vol] 7.6 g/dL Normal 6.4-8.2 [facility] Comment on above: Performed By: #### C BC #### [facility] [address] [address] [address] Yariel Herrera Sodium [Moles/Vol] 141 mmol/L Normal 136-145 [facility] Comment on above: Performed By: #### C BC #### [facility] [address] [place] [address] Dr. Yariel Herrera Urea nitrogen [Mass/Vol] 15.0 mg/dL Normal 7.0-18.0 [facility] Comment on above: Performed By: #### C BC #### [facility] [address] [address] [address] Yariel Herrera Urea nitrogen/Creatinine [Mass ratio] 17.9 mg/mg Normal [facility] Comment on above: Performed By: #### C BC #### [facility] [address] [place] [address] Dr. Yariel Herrera TSHon 08-04-2021 TSH 1.073 uIU/mL Normal 0.358-3.740 [facility] Comment on above: Performed By: #### C BC #### [facility] [address] [place] [address] Dr. Yariel Herrera TSH RANGE SEE BELOW Normal [facility] Comment on above: Result Comment: <0.3 4 UIU/ml HYPERTHYROID 0.34-5.60 UIU/ml EUTHYROID >5.60 UIU/ml HYPOTHYROID Performed By: #### C BC #### [facility] [address] [place] [address] Dr. Yariel Herrera Encounters Encounter Date Encounter Type Care Provider Facility Start: 08-30-2023 End: 08-30-2023 ambulatory Lara Mar MD Facility:[facility] Start: 07-27-2023 End: 07-27-2023 ambulatory GAYLAKatty STEINBERGHOLZ Not Available Start: 07-05-2023 End: 07-05-2023 ambulatory Lara Mar MD Facility:[facility] Start: 06-14-2023 End: 06-14-2023 ambulatory Lara Mar MD Facility:[facility] Start: 05-25-2023 End: 05-25-2023 ambulatory Dasha Waggoner PA-C Facility:[facility]uro[facility] Start: 05-10-2023 End: 05-10-2023 ambulatory Lara Mar MD Facility:[facility] Start: 05-04-2023 End: 05-04-2023 ambulatory Dasha Waggoner PA-C Facility:[facility]uro[facility] Start: 04-26-2023 End: 04-26-2023 ambulatory GAYLA AICHHOLZ Not Available Start: 04-08-2023 Clinisync Result Encounter Gayla Tamaraz SURVEY TECHNICIAN Work Phone: [facility] External Department Unsolicited Start: 04-08-2023 Clinisync Result Encounter Gayla Tieshaholz SURVEY TECHNICIAN Work Phone: [facility] External Department Unsolicited Start: 04-07-2023 Refill Gayla Aictuckerholz SURVEY TECHNICIAN Work Phone: [facility] Comment on above: COPD with exacerbati on (CMS/HCC) (Primary Dx) Start: 02-08-2023 End: 02-08-2023 ambulatory D[facility]aggoner [facility]-C [facility] Start: 01-25-2023 End: 01-25-2023 ambulatory GAYLA AICHHOLZ Not Available Start: 01-19-2023 End: 01-19-2023 ambulatory [facility] Start: 12-22-2022 End: 12-22-2022 ambulatory Dasha Waggoner PA-C [facility] Start: 11-26-2022 End: 11-26-2022 ambulatory Dasha CARLC [facility] Start: 11-23-2022 End: 11-23-2022 ambulatory Lara Mar MD Facility:[facility] Start: 10-15-2022 End: 10-15-2022 ambulatory Dasha CARLC Facility:[facility]uro[facility] Start: 09-16-2022 End: 09-16-2022 ambulatory Dasha Waggoner PA-C [facility] Start: 07-03-2022 End: 07-03-2022 ambulatory [facility] Start: 06-17-2022 End: 06-18-2022 ambulatory [facility] Facility:[facility] Start: 06-10-2022 End: 06-10-2022 ambulatory [facility] Start: 05-08-2022 End: 05-09-2022 ambulatory MOHAMAD ALGHOTHANI Facility:[facility] Start: 01-05-2022 End: 01-06-2022 ambulatory MOHAMAD ALGHOTHANI Facility:[facility] Start: 11-05-2021 End: 11-06-2021 ambulatory DIRECTOR OF MARKET ANALYSIS GAYLA SHIRAZ Facility:[facility] Start: 10-16-2021 End: 10-17-2021 ambulatory MOHAMAD ALGHOTHANI Facility:[facility] Start: 09-16-2021 End: 09-17-2021 ambulatory DIRECTOR OF MARKET ANALYSIS GAYLA SHIRAZ Facility:[facility] Start: 08-04-2021 End: 08-05-2021 ambulatory DIRECTOR OF MARKET ANALYSIS GAYLA SHIRAZ Facility:[facility] Procedures Date Procedure Procedure Detail Performing Clinician Start: 04-08-2023 [facility] INFLUENZA A AND B AG Gayla Martinez SURVEY TECHNICIAN Work Phone: Start: 12-03-2022 Mammography Gayla jerome SURVEY TECHNICIAN Work Phone: Start: 04-20-2013 Colonoscopy Gayla jerome SURVEY TECHNICIAN Work Phone: Plan of Treatment Date Care Activity Detail Author Start: 09-08-2026 Screening for malign ant neoplasm of colon [facility] Start: 12-04-2023 Screening for malign ant neoplasm of breast Mammogram [facility] Start: 10-06-2023 ambulatory Ambulatory Facility:[facility] Start: 08-22-2023 Influenza vaccination Influenza Vacc ine (#1) [facility] Comment on above: Postponed from 10/23 (Other Medical Reasons) Start: 07-24-2023 Screening for malign ant neoplasm of cervix Cervical Cancer Screening [facility] Comment on above: Postponed from 02/03 (Other Medical Reasons) Start: 05-30-2023 Urine screening for protein Diabetes: Urine Protein Screening [facility] Start: 04-26-2023 Glaucoma screening Diabetes: R etinopathy Screening [facility] Comment on above: Postponed from 02/03 (Other Medical Reasons) Start: 04-26-2023 End: 04-26-2023 Patient encounter procedure 04/26/2023 9:00 AM EST Office Visit [facility] [address] [place] [address] Gayla Martinez, ROSI [address] [place] [address] [facility] Start: 03-05-2023 Hemoglobin A1c measurement Diabetes: Hemoglobin A1C [facility] Start: 02-03-1990 Screening for malign ant neoplasm of cervix HPV/Cotest [facility] Start: 02-03-1981 Screening for malign ant neoplasm of cervix Pap Smear [facility] Start: 1960 Screening for malign ant neoplasm of colon [facility] Immunizations Immunization Date Immunization Notes Care Provider Fa cili 01-06-2022 influenza virus vacc ine, unspecified formulation Gayla Martinez NP Work Phone: [facility] Payers Date Payer Category Payer Private Health Insurance 2022 Medicaid [employer] [place] [id number] 2022-Present [address] [place] [address] [id number] 1960 Unknown [id number] 2.16.840.1.561664.3.579.2. 593 1960 Unknown [id number] 2.16.840.1.959899.3.579.2. 593 1960 Unknown [id number] 2.16.840.1.726609.3.579.2. 593 1960 Unknown [id number] 2.16.840.1.132565.3.579.2. 593 1960 Unknown [id number] 2.16.840.1.070335.3.579.2. 593 1960 Unknown [id number] 2.16.840.1.270823.3.579.2. 593 1960 Unknown [id number] 2.16.840.1.961447.3.579.2. 593 1960 Unknown [id number] 2.16.840.1.363993.3.579.2. 1259 1960 Unknown [id number] 2.16.840.1.710899.3.579.2. 1259 1960 Unknown [id number] 2.16.840.1.673043.3.579.2. 1259 1960 Unknown [id number] 2.16.840.1.321476.3.579.2. 196 1960 Unknown [id number] 2.16.840.1.915126.3.579.2. 196 1960 Unknown [id number] 2.16.840.1.337858.3.579.2. 196 1960 Unknown [id number] 2.16.840.1.659587.3.579.2. 196 1960 Unknown [id number] 2.16.840.1.319108.3.579.2. 196 1960 Unknown [id number] 2.16.840.1.625808.3.579.2. 196 1960 Unknown [id number] 2.16.840.1.696347.3.579.2. 196 1960 Unknown [id number] 2.16.840.1.050057.3.579.2. 196 1960 Unknown [id number] 2.16.840.1.327480.3.579.2. 196 1960 Unknown [id number] 2.16.840.1.659398.3.579.2. 196 1960 Unknown [id number] 2.16.840.1.551241.3.579.2. 196 1960 Unknown [id number] 2.16.840.1.663827.3.579.2. 196 1960 Unknown [id number] 2.16.840.1.940599.3.579.2. 196 1960 Unknown [id number] 2.16.840.1.762979.3.579.2. 196 1959 Unknown [id number] 1959 Unknown [id number] Social History Date Type Detail Facility Start: 01-25-2023 Tobacco smoking stat [facility] Smokes tobacco daily [facility] History of tobacco use Cigarette Smoker [facility] Start: 01-25-2023 Cigarettes smoked cu rrent (pack per day) - Reported 0.5 [facility] Start: 01-25-2023 Tobacco use and exposure Smoke less tobacco non-user [facility] Start: 02-08-2023 Alcohol intake Lifetime non-d mariaa (finding) [facility] Start: 01-25-2023 Tobacco use panel [facility] Start: 1960 Sex Assigned At Not on file [facility] Medical Equipment Procedure Code Equipment Code Equipment Original Text Equi pment Identifier Dates 1 Device Daily as needed. [id number] Clinical Notes 06-10-2022 to 01-19-2023 Note Date & Type Note Facility 01-19-2023 Note Cardiovascular Medic [facility] SUBJECTIVE Chief Complaint Patient presents with Follow-up Hypertension Stephan López is a 62 y.o. female here for follow-up. HPI PMHx: HTN, pericardial effusion, HLD She denies any cardiac concerns today. She has back problems. She is 5 months s/p surgery and she is still recovering. She is following with pain management at [facility]. She is not currently checking her [...] needed. Dante Hand NP [facility] Cardiovascular Medicine [facility] 01-19-2023 Note Patient here for [...] All other systems reviewed and are negative. [facility] 07-03-2022 Note No concerning symptoms [facility] 07-03-2022 Note Hypertension is well controlled 120/84 Reviewed b/p log and overall her b/p is controlled with some outliers of high and low b/p. Renal function was normal s/p starting lisinopril [facility] 07-03-2022 Note Patient here for [...] All other systems reviewed and are negative. [facility] 07-03-2022 Note [facility] CARDIOLOGY PROGR [...] effusion No concerning symptoms RTC 6 months [facility] 06-10-2022 Note F/U with PCP [facility] 06-10-2022 Note Hypertension is 145/ 99 uncontrolled Will start lisinopril 2.5 mg daily BMP in 1 week Start monitoring b/p at home and record on a log, RTC 1 month D/W pt about side effects of 1st dose low b/p and dry persistent cough [facility] 06-10-2022 Note Recent echo with not ed trivial effusion. No recent illness or any concerning symptoms [facility] 06-10-2022 Note [facility] CARDIOLOGY PROGR ESS NOTE HPI: Stephan López is a 62 y.o. female here for routine f/U for pericardial effusion. At the time, patient denied any cardiac complaints. She denied any chest pain or shortness of breath. She denies any cardiac history. No history of WI, PCI, CHF. Repeat echocardiogram demonstrated a trivial [...] with PCP RTC 1 month for re-evaluation [facility] 06-10-2022 Note Patient here for 6 m o follow up pericardial effusion. Had echo in April 2022. Denies chest pain and SOB. Review of Systems Musculoskeletal: Positive for back pain. All other systems reviewed and are negative. [facility] Evaluation note Diagnosis COPD with [...] and content) DATE CREATED AUTHOR 06/21/[address] [facility] DATE CREATED AUTHOR AUTHOR'S ORGANIZ ATION 03/20/2023 [facility] DATE CREATED AUTHOR AUTHOR'S ORGANIZ ATION 07/28/2023 [facility] DATE CREATED AUTHOR AUTHOR'S ORGANIZ ATION 09/11/2023 [facility] Care Teams (unrecognized sec tion and content) Watch Technician Relationship Specialty Start Date End Date Jim Deleon MD [address] [facility] [place] [address] PCP - General Family Medicine 09/18/22 Gayla Martinez NP [address] [place] [id number] Referring Physician Nurse Practitioner 09/18/22 Watch Technician Relationship Specialty Start Date End Date Jim Deleon MD [address] [place] [address] PCP - General Family Medicine 09/18/22 Gayla Martinez NP [address] [place] [address] Referring Physician Nurse Practitioner 09/18/22 FOR [...] BE BASED ON THE PRIMARY CLINICAL RECORDS. [employer] [facility]. provides no warranty or guarantee of the accuracy or completeness of information in this document.
--- NOTE | 2023-09-15 09:49 | PM.CN ---
Consult Note: HPI Data of Consult Patient: known to practice within the last 3 years Requesting Physician: Gwendolyn Salamanca NP Primary Care Provider: Gayla Martinez NP Consult Narrative Reason for consult: f/u Narrative: Stephan muniz pleasant 63 year old female presents for evaluation and management of chronic back pain. Today pain 3/10 in right low back and right hip, describes as a sharp burning pain. Patient has a hx of L3,4,5 fusion. Patient has found mild benefit to current medication regimen, no side effects. Patient continues to have moderate to severe pain that is severely impacting functional ability, DIONNA 36%. Patient has completed aquatherapy without improvement. Previously underwent Bilateral L5-S1 transforaminal epidural steroid injection with 80% improvement in low back and radicular pain less than 3 months, right SIJ injection provided 85% pain relief for 2 days, no ongoing improvement, bilateral L5-S1 MBB #1 with 50% improvement immediately after and following but less than 80%. Most recent injection right superior cluneal nerve block provided 100% improvement immediately following and 3 days after the procedure, patient reports this is the best she ever felt with any injections. cc:: CC: Gwendolyn Salamanca NP Review of Systems ROS Status of ROS 10 or more systems reviewed and unremarkable except as noted in history and below Musculoskeletal Reports: back pain PFSH PFSH Medical History Low back pain ?M54.50 - Low back pain, unspecified (ICD-10) Osteoarthritis ?M19.90 - Unspecified osteoarthritis, unspecified site (ICD-10) Diabetes ?E11.9 - Type 2 diabetes mellitus without complications (ICD-10) COPD (chronic obstructive pulmonary disease) ?J44.9 - Chronic obstructive pulmonary disease, unspecified (ICD-10) Smoker ?F17.200 - Nicotine dependence, unspecified, uncomplicated (ICD-10) Hypertension ?I10 - Essential (primary) hypertension (ICD-10) Surgical History S/P surgical removal of pilonidal cyst ?Z98.890 - Other specified postprocedural states (ICD-10) H/O lumbosacral spine surgery ?Z98.890 - Other specified postprocedural states (ICD-10) Meds Home Medications and Allergies Home Medications ?Medication ?Instructions ?Recorded ?Confirmed ?Type amitriptyline 10 mg tablet 25 mg PO DAILY 11/23/22 08/30/23 History atorvastatin 20 mg tablet 20 mg PO DAILY 11/23/22 08/30/23 History ferrous sulfate 325 mg (65 mg 325 mg PO DAILY 11/23/22 08/30/23 History iron) tablet (FeroSul) fluticasone fur. 100 mcg-umeclid 1 inh inhalation DAILY 11/23/22 08/30/23 History 62.5 mcg-vilant 25 mcg inhalat.powder (Trelegy Ellipta) lisinopril 2.5 mg tablet 2.5 mg PO DAILY 11/23/22 08/30/23 History metformin 500 mg tablet 500 mg PO BID 11/23/22 08/30/23 History tizanidine 4 mg capsule 4 mg PO DAILY PRN muscle spasticity 11/23/22 08/30/23 History meloxicam 15 mg tablet 15 mg PO DAILY 04/15/23 08/30/23 History naloxone 4 mg/actuation nasal 4 mg intranasal Q3M PRN opioid 05/19/23 08/30/23 Rx spray (Narcan) overdose #2 ea tramadol 50 mg tablet 50 mg PO BID PRN pain #60 tabs 05/19/23 08/30/23 Rx tramadol 50 mg tablet 50 mg PO DAILY PRN pain #30 tabs 08/18/23 08/30/23 Rx fluticasone propionate 50 intranasal 08/30/23 History mcg/actuation nasal spray,suspension loratadine 10 mg tablet 10 mg PO DAILY 08/30/23 08/30/23 History Allergies Allergy/AdvReac Type Severity Reaction Status Date / Time No Known Drug Allergies Allergy Verified 08/30/23 08:52 Exam Constitutional Documenting provider has reviewed patient's vital signs: yes Common normals: no apparent distress, oriented x3, healthy appearing, alert and well nourished General appearance: cooperative HENMT Common normals: normocephalic, hearing grossly normal bilaterally and moist oral mucous membranes Head and scalp: normocephalic Eye Common normals: PERRL Pupil: PERRL Neck & C-Spine Common normals: full ROM General: normal visual inspection Chest Common normals: inspection of chest normal Respiratory Common normals: normal respiratory effort, no retractions and no use of accessory muscles Back & Pelvis Lumbar spine/lower back: ROM limited, pain with ROM, lumbar spinal tenderness and straight leg raise negative bilaterally Sacroiliac joints: SI joint(s) abnormal Other: facet loading bilateral negative radiculopathy, strength 5/5 in BLE right SIJ pain over PSIS, positive DECLAN, FADIR, thigh thrust, gaenslens chronic right low back pain as noted below Back image (female): 1. Extremity Common normals: normal to inspection and full ROM Neuro Common normals: oriented x3, CN's II-XII intact bilaterally, moves all extremities, no focal motor deficits, no sensory deficits noted and deep tendon reflexes 2+ bilaterally Sensorium/orientation: alert Gait (neuro): antalgic and assistive device used cane Motor exam: strength 5/5 throughout and no movement abnormalities noted Psych Common normals: mental status grossly normal, thought process normal, cooperative, affect normal, speech normal and activity/motor behavior normal Speech: normal speech Thought process: normal thought process Results Additional Findings Additional findings: If on a controlled substance or opioids, I have checked an [place] report on this patient and there are no aberrancies noted in the prescribing history.??If on a controlled substance or opioid a drug screen was completed and reviewed within the last year, and if there has not been a drug screen completed we ordered one today to monitor higher risk, state monitored pain medication use. As part of providing excellent, safe, comprehensive care, the following was completed at our patient's visit: 1. A medication reconciliation and review to ensure accurate knowledge of current/active medications, including asking our patients to inform us about any [id number] medications or herbal remedies/nutritional supplements/alternative remedies. 2. A review to specifically ensure our patients have had annual screening for screening for depression, screening for tobacco use, and screening for unhealthy alcohol use. For concerning screenings had a discussion with the patient, provided patient education, and recommended follow-up with primary care provider when appropriate. If patient noted with a risk of falling, they received education on strength, gait, and balance training to prevent future risk of falling. Assessment and Plan Assessment and Plan (1) Chronic right-sided low back pain without sciatica: (2) Failed back syndrome: (3) Lumbar stenosis with neurogenic claudication: (4) Lumbar spondylosis: (5) Sacroiliitis: (6) Chronic prescription opiate use: Assessment and Plan: I feel these medications are improving the patient's quality of life and allow them to tolerate activities of daily living as well as participate in recreational activity.? The patient does not report intolerable side effects. The patient is NOT opioid naive and non-pharmacologic and non-opioid treatment has failed to significantly relieve the patient's pain and improve functionality. The patient has a diagnosis that is related to a somatic or visceral pain etiology. ? ?? I reviewed with the patient the potential risks and side effects with the use of? opioid medications including but not limited to respiratory depression,? sedation, and even . I verified the patient has access to naloxone should? these effects occur. I advised the patient to avoid the use of any other? sedation substances including alcohol, THC, and benzodiazepines while? taking opioid medications due to the risk of compounding side effects and? detrimental outcomes. I reviewed the [employer], pain treatment agreement, urine? drug screen, and opioid start talking forms. The patient was advised to let? their family know they had Naloxone in case they would need to administer? the medication.? ?? A drug screen was completed within the last year, and no aberrancies were noted regarding their use of controlled substances. The patient understands they are subject to the terms and conditions of the pain contract that they have signed. ? ?? I have checked an [place] report on this patient today and there are no aberrancies noted in the prescribing history.? (7) Muscle spasm: Plan right superior cluneal nerve block under fluoroscopy provided 100% improvement in pain and functional ability immediately following and 3 days after the injection, proceed with right superior cluneal nerve thermal RFA under fluoroscopy patient not interested in SCS. continue PT and HEP as tolerated continue current medication regimen, tolerating well without side effects reporting mild functional improvement. continue tramadol 50mg once daily PRN moderate to severe pain f/u after RFA complete
== END 2023-09-15 09:44 | disposition home or self-care (01) ==
LOC: PM 09:44
PROVIDERS: PCP Nurse Practitioner; Visit Provider Nurse Practitioner
DX: M54.50 Low back pain, unspecified (principal); M96.1 Postlaminectomy syndrome, not elsewhere classified; M48.062 Spinal stenosis, lumbar region with neurogenic claudication; M47.816 Spondylosis without myelopathy or radiculopathy, lumbar region; M46.1 Sacroiliitis, not elsewhere classified; Z79.891 Long term (current) use of opiate analgesic; M62.838 Other muscle spasm
CPT/HCPCS: G0463

== ENCOUNTER 2023-09-27 09:40 | Day surgery (SDC) | payer OTHER, SELFPAY ==
[2023-09-27 10:11] LABS: Glucometer 100 mg/dL (74-106)
[2023-09-27 10:12] VITALS: BP 117/84; PULSE 98; TEMP 36.6; O2SAT 98
[2023-09-27 10:32] VITALS: BP 114/74; PULSE 78; O2SAT 94
[2023-09-27 10:33] VITALS: BP 109/67; PULSE 83; O2SAT 96
[2023-09-27] MEDS: TRIAMCINOLONE ACETONIDE 40 MG/ML VIAL INJ (10:37)
[2023-09-27] MEDS: BUPIVACAINE HCL 0.25% PF 25 MG/10 ML VIAL 5 ML INJ (10:38)
[2023-09-27] MEDS: LIDOCAINE HCL 2%-EPINEPHRINE 1:100,000 20 ML MDV 10 ML INJ (10:38)
--- NOTE | 2023-09-27 10:48 | W.PM.PROCNOT ---
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 Informed consent was obtained and placed on the chart.? The patient was brought to the medical procedure unit and placed in prone position.? A timeout was completed, verifying correct patient, procedure, site, positioning, and planned special equipment using strict aseptic technique under direct fluoroscopic visualization.? A 20-gauge, 10 cm, 10 mm active tipped radiofrequency cannula was placed over the right superior cluneal nerve in 3 locations.? We then carried out sensory stimulation at 50 Hz, precipitating noxious feedback.? Motor stimulation at 2 Hz up to 2 volts without evidence of somatic recruitment.? We anesthetized with 0.25 mL of 0.25% Marcaine, lesioning for 80 degrees at 90 seconds, turning the needle tip 1/4 turn, repeating the lesion.? The probes were removed.? The above-mentioned injectate was placed through the cannula.? The cannulas were withdrawn. The patient was then taken to the postprocedure recovery area, monitored for an appropriate length of time before being found suitable for discharge in the company of a responsible adult. Anesthesia: Local Surgeon: Lara Mar Pathology: none sent Condition: stable Disposition: no change
== END 2023-09-27 10:52 | disposition home or self-care (01) ==
LOC: SURGOUT 09:41
PROVIDERS: PCP Nurse Practitioner; Visit Provider Anesthesiology
DX: G57.81 Other specified mononeuropathies of right lower limb (principal)
CPT/HCPCS: 36415; 64640; 82948; J0665; J3301

== ENCOUNTER 2023-11-03 10:14 | Outpatient (OUT) | payer OTHER, SELFPAY ==
--- OUTSIDE RECORDS SUMMARY | 2023-11-03 10:36 | XMS_ITS | CCD ---
Author Organization [facility] Care Team Providers Care Leathersmith Name Role Phone ALGHOEVELINEANI, MOHAMAD Attending Unavailable AICHHOLZ, BLACKJACK PIT BOSS GAYLA Primary Care Unavailable ALGHOTHANI, MOHAMAD Consulting Unavailable ALGHOTHANI, MOHAMAD Admitting Unavailable AICHHOLZ, BLACKJACK PIT BOSS GAYLA Primary Care Unavailable AICHHOLZ, BLACKJACK PIT BOSS GAYLA Admitting Unavailable AICHHOLZ, BLACKJACK PIT BOSS GAYLA Attending Unavailable AICHHOLZ, BLACKJACK PIT BOSS GAYLA Consulting Unavailable ALGHOTHANI, MOHAMAD Attending Unavailable AICHHOLZ, BLACKJACK PIT BOSS GAYLA Primary Care Unavailable ALGHOTHANI, MOHAMAD Consulting Unavailable ALGHOTHANI, MOHAMAD Admitting Unavailable ALGHOTHANI, MOHAMAD Attending Unavailable AICHHOLZ, BLACKJACK PIT BOSS GAYLA Primary Care Unavailable ALGHOTHANI, MOHAMAD Consulting Unavailable ALGHOTHANI, MOHAMAD Admitting Unavailable ALEX, INA Attending Unavailable ALEX, INA Admitting Unavailable ALEX, INA Consulting Unavailable AICHHOLZ, BLACKJACK PIT BOSS GAYLA Primary Care Unavailable AICHHOLZ, BLACKJACK PIT BOSS GAYLA Admitting Unavailable AICHHOLZ, BLACKJACK PIT BOSS GAYLA Attending Unavailable AICHHOLZ, BLACKJACK PIT BOSS GAYLA Consulting Unavailable AICHHOLZ, BLACKJACK PIT BOSS GAYLA Primary Care Unavailable AICHHOLZ, BLACKJACK PIT BOSS GAYLA Admitting Unavailable AICHHOLZ, BLACKJACK PIT BOSS GAYLA Attending Unavailable AICHHOLZ, BLACKJACK PIT BOSS GAYLA Consulting Unavailable AICHHOLZ, BLACKJACK PIT BOSS GAYLA Primary Care Unavailable ALEX, INA Attending Unavailable ALEX, INA Attending Unavailable DANTE HAND Attending Unavailable Aichholz MELT HOUSE DRAG OPERATOR, Gayla Unavailable Pancho BOWIE, Jim Primary Care [...] Snider III, MD, Delfino Holder U navailable Edilson PA-C, Dasha Pedro Attending Unavailab le Unavailable, Physician Primary Care Unavailab le Edilson PA-C, Dasha Pedro Attending Unavailab le Unavailable, Physician Primary Care Unavailab le Aichholz HUMAN INTELLIGENCE-BLACKJACK PIT BOSS, Gyala Cook Primary Care Unava ilable Edilson PA-C, Dasha Pedro Attending Unavailab le Aichholz HUMAN INTELLIGENCE-BLACKJACK PIT BOSS, Gayla Cook Primary Care Unava ilable Edilson PA-C, Dasha Pedro Attending Unavailab le Edilson PA-C, Dasha Pedro Attending Unavailab le Edilson PA-C, Dasha Pedro Attending Unavailab le Isabela BOWIE, Lara Amos Attending Unavailable Allergies Allergy Classification Reported Allergen(s) Allergy Type Date of Onset Reaction(s) Facility (3 sources) pregabalin; Translations: [PREGABALIN] Drug Allergy 3 [facility] Repository (1 source) No Known Medication Allergies; Translations: [No Known Medication Allergies] Propensity to adverse reactions to drug (disorder) [facility] Repository Medications Current Medications Medication Drug Class(es) [...] oral solution (2 sources) alpha-Adrenergic Agonist, Uncompetitive Q-arbgco-O-aspartat e Receptor Antagonist, Sigma-1 Agonist Start: 04-07-2023 [...] Test Name Value Interpretation Reference Range Facility Provider Letteron 10-27-2023 Provider Letter ARCELIA Santos [address] [place] [address] Re: Stephan López Date of Visit: 10/26/2023 Dear Gayla PANIAGUA, This patient was recently seen in the neurosurgical office. Please see attached note for further details. Let me know if you have any questions or concerns. Sincerely, MICHELLE Engle Providers: Gwendolyn Salamanca The following document(s) were included in the letter: October 26, 2023 14:35:44 EDT - (10/26/2023) Neurosurgery Office Visit Note Normal [facility] Neurosurgery Office/Clinic N oteon 10-26-2023 Neurosurgery Office/Clinic Note Chief Complaint back follow up History of Present Illness The patient is a pleasant 63-year-old female with history of diabetes, COPD, and chronic nicotine abuse who returns to the neurosurgical office approximately 14 months status post L3-5 decompression and posterior [...] discontinued from her LSO brace 01/2023. She recently completed a second course of postoperative physical therapy which she feels provides relatively good benefit. She was continuing pool exercises at her local pool including walking through the water and gentle aerobics though the pool recently closed on . The patient was last seen in the neurosurgical office 05/25/2023 and returns today for ongoing clinical surveillance. The patient continues to report daily chronic low back pain which she describes as a 4?6/10 on a pain scale as her baseline pain though this on occasion can increase to a 9?10/10. She notes that pain is more prominent especially if standing at the sink or countertop in her kitchen with a slight forward flexion at the waist. She also notes increased pain with higher levels of activity. She limits grocery store trips to only a few items and tends to do this with her on a more frequent basis rather than 1 long grocery trip each week. She notes relief of pain when sitting, especially if she puts pressure from her hand into the small of her low back; or laying on her side with her knees bent. She denies lower extremity radicular pain, numbness, paresthesia or overt weakness. She denies bowel or bladder incontinence; no saddle paresthesia. She notes 1 episode of feeling off balance yesterday noting that she used her cane for ambulation assistance when walking to the bathroom. She denies any other previous episodes of imbalance. No vertigo or dizziness. She denies any upper extremity radicular pain, numbness, paresthesia or weakness. She continues to follow with [facility] pain management and has undergone previous L5-S1 transforaminal SVITLANA 05/10/2023 with approximately 2 to 3 weeks incomplete benefit. She has also undergone bilateral sacroiliac joint injections. She is utilizing meloxicam and tizanidine once daily for pain as well as tramadol on rare occasion. Recent imaging (provider interpretation): MRI lumbar 08/03/2023 at [facility] reveals evidence of L3-5 posterior spinal fusion with instrumentation. There is fixed anterior listhesis at L4-5. Retrolisthesis noted L1-2, L2-3. L1-2 demonstrates a central/left paracentral disc bulge with mild central stenosis. No significant lateral recess constriction, neuroforaminal narrowing or neurocompression. L2-3 demonstrates adjacent segment disease with broad-based disc bulge, epidural lipomatosis, ligamentum flavum hypertrophy and facet arthropathy leading to moderate to moderately severe central stenosis with moderate bilateral neuroforaminal narrowing. L3-4 and L4-5 demonstrate good central decompression. There is evidence of postsurgical seroma in the surgical bed without obvious compression of the dural sac. L5-S1 demonstrates left greater than right facet arthropathy without significant central canal stenosis. Moderate bilateral neuroforaminal narrowing at this level due to degenerative disc disease and facet arthropathy. Lumbar flexion/extension x-rays 04/30/2023 at [facility] reveals straightening of lumbar lordosis. Evidence of L3-5 posterior spinal fusion with instrumentation and interbody fusion L4-5. No evidence of hardware fracture or pullout. Patient found to have degenerative disc disease L2-3 and L5-S1. There is slight retrolisthesis L2-3 as well as unchanged anterior listhesis at her surgerized L4-5 segment. No evidence of dynamic instability. CT lumbar spine 02/03/2023 at [facility] reveals evidence of L3-5 posterior spinal fusion [...] bony spurring. L1-2 reveals a central/left paracentral (more content not included)... Normal [facility] Neurosurgery Office/Clinic N oteon 05-25-2023 Neurosurgery Office/Clinic [...] undergone an L5-S1 transforaminal SVITLANA 05/10/2023 by [facility] pain management which did give her approximately 2 to 3 weeks of incomplete benefit. She is planned for bilateral sacroiliac joint injections in the near future. The patient has discontinued her LSO brace that continues her electromagnetic stimulator 8 hours/day. Recent imaging (provider interpretation): Lumbar flexion/extension x-rays 04/30/2023 at [facility] reveals straightening of lumbar lordosis. Evidence of L3-5 posterior spinal fusion with instrumentation and interbody fusion L4-5. No evidence of hardware fracture or pullout. Patient found to have degenerative disc disease L2-3 and L5-S1. There is slight retrolisthesis L2-3 as well as unchanged anterior listhesis at her surgerized L4-5 segment. No evidence of dynamic instability. CT lumbar spine 02/03/2023 at [facility] reveals evidence of L3-5 posterior spinal fusion [...] prior imaging. CT lumbar spine 10/14/2022 at [facility] reveals evidence of L3-5 decompression and posterior [...] which c (more content not included)... Normal [facility] INFLUENZA A AND B AGon 0 04-08-2023 INFLUENZA VIRUS A ANTIGEN Positive Abnormal [facility] Comment on above: NOTE: Live attenuate d influenza vaccine viruses can cause a positive result for a rapid influenza diagnostic test if administered up to 7 days prior to rapid testing. INFLUENZA VIRUS B ANTIGEN Negative [facility] Comment on above: Negative for Flu B p rotein antigen. Infection due to Flu B cannot be ruled out. Flu B antigen in the sample may be below the detection limit of the test. Interpretation and review of laboratory results Abnormal [facility] 36on 03-19-2023 36 Please let her know her labs showed normal kidney function. Can continue lisinopril. Thank you Normal [facility] Telephoneon 03-19-2023 Telephone [id number] James López Lin 1960 F Date Provider Department Center 03/19/2023 DANTE BAIG [facility] Family History Problem Relation Age of Onset Other Mother Heart attack Father Other Father Other Father Other Maternal Grandmother Family Status - Relation Status Age at Mother Father Maternal Grandmother Normal [facility] Neurosurgery Office/Clinic N oteon 02-08-2023 Neurosurgery [...] and tizanidine as provided by pain management ([facility] pain management) only as needed and has not yet returned to NSAID medication. She continues to utilize nicotine and understands the deleterious effects of nicotine on her overall health and bony arthrodesis. Recent imaging (provider interpretation): CT lumbar spine 02/03/2023 at [facility] reveals evidence of L3-5 posterior spinal fusion [...] prior imaging. CT lumbar spine 10/14/2022 at [facility] reveals evidence of L3-5 decompression and posterior [...] bladder inc (more content not included)... Normal [facility] Office Visiton 01-19-2023 Follow-up visit [id number] James López 1960 F Date Provider Department Center 01/19/2023 DANTE BAIG Family History Problem Relation Age of Onset Other Mother Heart attack Father Other Father Other Father Other Maternal Grandmother Family Status - Relation Status Age at Mother Father Maternal Grandmother Level of Service:23476 CT OFFICE/OUTPATIENT ESTABLISHED LOW MDM 20-29 MIN Reason for Visit and Comments: Follow-up [026048] Hypertension [889703] Normal [facility] Neurosurgery Office/Clinic N oteon 12-22-2022 Neurosurgery [...] 2 times per week. She follows with [facility] pain management which is a transition from [facility] pain management group. She continues [...] prior imaging. CT lumbar spine 10/14/2022 at [facility] reveals evidence of L3-5 decompression and posterior [...] demonstrates normal respiratory effort She presents in [facility] lock brace with proper fit and alignment. This was removed at the time of today's visit for incision evaluation. Lumbosacral incision appears well-healed and without erythema, edema, drainage or warmth. She notes mild tenderness (more content not included)... Normal [facility] Neurosurgery Office/Clinic N oteon 11-26-2022 Neurosurgery Office/Clinic [...] she recently transferred pain management care from [facility] to [facility]. Per the patient, they eventually would like her to initiate hot water physical therapy though only after receiving clearance from this office. Recent imaging (provider interpretation): CT lumbar spine 10/14/2022 at [facility] reveals evidence of L3-5 decompression and posterior [...] demonstrates normal respiratory effort She presents in [facility] lock brace with proper fit and [...] lower extre (more content not included)... Normal [facility] Office Visiton 07-03-2022 Follow-up visit [id number] James López 1960 F Date Provider Department Center 07/03/2022 Dory-INA JOHNSON Family History Problem Relation Age of Onset Other Mother Heart attack Father Other Father Other Father Other Maternal Grandmother Family Status - Relation Status Age at Mother Father Maternal Grandmother Level of Service:41053 CT OFFICE/OUTPATIENT ESTABLISHED LOW MDM 20-29 MIN Reason for Visit and Comments: Hypertension [049440] pericardial effusion [Other] Normal [facility] PROF CHEM 8 (BAS METB)on Anion gap [Moles/Vol] 12.9 mmol/L Normal [facility] Comment on above: Performed By: #### C BC #### [facility] [address] [place] [address] Dr. Yariel Herrera Calcium [Mass/Vol] 9.0 mg/dL Normal 8.5-10.1 [facility] Comment on above: Performed By: #### C BC #### [facility] [address] [place] [address] Dr. Yariel Herrera Chloride [Moles/Vol] 106 mmol/L Normal 98-107 [facility] Comment on above: Performed By: #### C BC #### [facility] [address] [place] [address] Dr. Yariel Herrera CO2 [Moles/Vol] 28.3 mmol/L Normal 21.0-32.0 [facility] Comment on above: Performed By: #### C BC #### [facility] [address] [place] [address] Dr. Yariel Herrera Creatinine [Mass/Vol] 0.81 mg/dL Normal 0.55-1.02 [facility] Comment on above: Performed By: #### C BC #### [facility] [address] [place] [address] Dr. Yariel Herrera EGFR-AF SYRIAN >60 Normal >=60 [facility] Comment on above: Performed By: #### C BC #### [facility] [address] [place] [address] Dr. Yariel Herrera EGFR-NON AF SYRIAN >60 Normal >=60 [facility] Comment on above: Performed By: #### C BC #### [facility] [address] [place] [address] Dr. Yariel Herrera Glucose [Mass/Vol] 103 mg/dL Normal 74-106 [facility] Comment on above: Performed By: #### C BC #### [facility] [address] [place] [address] Dr. Yariel Herrera Potassium [Moles/Vol] 4.2 mmol/L Normal 3.5-5.1 [facility] Comment on above: Performed By: #### C BC #### [facility] [address] [address] [address] Yariel Herrera Sodium [Moles/Vol] 143 mmol/L Normal 136-145 [facility] Comment on above: Performed By: #### C BC #### [facility] [address] [address] [address] Yariel Herrera Urea nitrogen [Mass/Vol] 9.0 mg/dL Normal 7.0-18.0 [facility] Comment on above: Performed By: #### C BC #### [facility] [address] [address] [address] Yariel Herrera Urea nitrogen/Creatinine [Mass ratio] 11.1 mg/mg Normal [facility] Comment on above: Performed By: #### C BC #### [facility] [address] [address] [address] Yariel Herrera 37on 06-10-2022 37 Start lisinopril 2.5 mg daily, Have labs/blood checked in 1 week for kidney function Monitor b/p at home 1-2 times/day and record on a log- bring with her to next visit. If you notice a dry, persistent cough- stop lisinopril and call office please. Normal [facility] Office Visiton 06-10-2022 Follow-up visit [id number] James López 1960 F Date Provider Department Center 06/10/2022 INA JONES [facility] Family History Problem Relation Age of Onset Other Mother Heart attack Father Other Father Other Father Other Maternal Grandmother Family Status - Relation Status Age at Mother Father Maternal Grandmother Level of Service:62326 CT OFFICE/OUTPATIENT ESTABLISHED MOD MDM 30-39 MIN Normal [facility] ECHOCARDIO M/2D COMPLETEon 0 05-08-2022 ECHOCARDIO M/2D COMPLETE Patient: STEPHAN LÓPEZ. Exam Date: 05/08/2022 : 1960 Gender:F Ordering : CARL WILLIS Admission #: [id number] Family : GAURAV MARTINEZ [facility] Order #: [id number] CLICK HERE TO VIEW EXAM ECHOCARDIOGRAM REPORT [...] M.D. on 05/08/2022 at 14:20 Normal [facility] ABHINAV by IFAon 01-08-2022 Antinuclear Antibodies, IFA Negative Normal [facility] Comment on above: Result Comment: Nega tive <1:80 Borderline 1:80 Positive >1:80 ICAP nomenclature: AC-0 For more information about Hep-2 cell patterns use ANApatterns.org, the official website for the International Consensus on Antinuclear Antibody (ABHINAV) Patterns (ICAP). Performed By: #### A LUC #### [facility] [address] [place] [address] Dr. Yariel Herrera CBC AUTO DIFFon 01-05-2022 BASO # 0.1 103/ul Normal 0.0-0.1 [facility] Comment on above: Performed By: #### C BC #### [facility] [address] [place] [address] Dr. Yariel Herrera Basophils/100 WBC (Bld) 0.6 % Normal 0.2-2.0 [facility] Comment on above: Performed By: #### C BC #### [facility] [address] [place] [address] Dr. Yariel Herrera EO # 0.2 103/ul Normal 0.0-0.7 [facility] Comment on above: Performed By: #### C BC #### [facility] [address] [place] [address] Dr. Yariel Herrera Eosinophils/100 WBC (Bld) 1.4 % Normal 0.9-7.0 [facility] Comment on above: Performed By: #### C BC #### [facility] [address] [place] [address] Dr. Yariel Herrera Erythrocyte distribution width (RBC) [Ratio] 13.6 % Normal 11.0-15.0 [facility] Comment on above: Performed By: #### C BC #### [facility] [address] [place] [address] Dr. Yariel Herrera Hematocrit (Bld) [Volume fraction] 46.6 % Normal 36.0-48.0 [facility] Comment on above: Performed By: #### C BC #### [facility] [address] [place] [address] Dr. Yariel Herrera Hemoglobin (Bld) [Mass/Vol] 15.4 g/dL Normal 12.0-16.0 [facility] Comment on above: Performed By: #### C BC #### [facility] [address] [place] [address] Dr. Yariel Herrera IG # 0.03 10e3/ul Normal 0.00-0.03 [facility] Comment on above: Performed By: #### C BC #### [facility] [address] [place] [address] Dr. Yariel Herrera IG % 0.2 % Normal 0.0-0.5 [facility] Comment on above: Performed By: #### C BC #### [facility] [address] [place] [address] Dr. Yariel Herrera LYMPH # 4.2 103/ul Critically high 1.2-3.8 [facility] Comment on above: Performed By: #### C BC #### [facility] [address] [place] [address] Dr. Yariel Herrera Lymphocytes/100 WBC (Bld) 31.3 % Normal 20.5-60.0 [facility] Comment on above: Performed By: #### C BC #### [facility] [address] [place] [address] Dr. Yariel Herrera MANUAL DIFF REQ NO Normal [facility] Comment on above: Performed By: #### C BC #### [facility] [address] [place] [address] Dr. Yariel Herrera MCH (RBC) [Entitic mass] 31.6 pg Normal 26.7-34.0 [facility] Comment on above: Performed By: #### C BC #### [facility] [address] [place] [address] Dr. Yariel Herrera MCHC (RBC) [Mass/Vol] 33.0 g/dL Normal 29.9-35.2 [facility] Comment on above: Performed By: #### C BC #### [facility] [address] [place] [address] Dr. Yariel Herrera MCV (RBC) [Entitic vol] 95.7 fL Normal 81.0-99.0 [facility] Comment on above: Performed By: #### C BC #### [facility] [address] [address] [address] Yariel Herrera MONO # 0.9 103/ul Critically high 0.3-0.8 [facility] Comment on above: Performed By: #### C BC #### [facility] [address] [address] [address] Yariel Herrera Monocytes/100 WBC (Bld) 6.8 % Normal 1.7-12.0 [facility] Comment on above: Performed By: #### C BC #### [facility] [address] [address] [address] Yariel Herrera NEUT # 8.0 103/ul Critically high 1.4-6.5 [facility] Comment on above: Performed By: #### C BC #### [facility] [address] [address] [address] Yariel Herrera Neutrophils/100 WBC (Bld) 59.7 % Normal 43.0-75.0 [facility] Comment on above: Performed By: #### C BC #### [facility] [address] [address] [address] Yariel Herrera Platelet mean volume (Bld) [Entitic vol] 10.7 fL Normal 9.5-13.5 [facility] Comment on above: Performed By: #### C BC #### [facility] [address] [address] [address] Yariel Herrera PLT 340 103/ul Normal 150-450 [facility] Comment on above: Performed By: #### C BC #### [facility] [address] [address] [address] Yariel Herrera RBC 4.87 106/ul Normal 4.20-5.40 [facility] Comment on above: Performed By: #### C BC #### [facility] [address] [address] [address] Yariel Herrera WBC 13.4 103/ul Critically high 4.0-11.0 [facility] Comment on above: Performed By: #### C BC #### [facility] [address] [place] [address] Dr. Yariel Herrera FREE T4on 01-05-2022 Free T4 [Mass/Vol] 1.06 ng/dL Normal 0.76-1.46 [facility] Comment on above: Performed By: #### C BC #### [facility] [address] [place] [address] Dr. Yariel Herrera PROF 14(COMP METB)on 022 Albumin [Mass/Vol] 3.9 g/dL Normal 3.4-5.0 [facility] Comment on above: Performed By: #### C MP, TSH #### [facility] [address] [place] [address] Dr. Yariel Herrera Albumin/Globulin [Mass ratio] 1.1 {ratio} Normal [facility] Comment on above: Performed By: #### C MP, TSH #### [facility] [address] [place] [address] Dr. Yariel Herrera ALP [Catalytic activity/Vol] 99 U/L Normal 46-116 [facility] Comment on above: Performed By: #### C MP, TSH #### [facility] [address] [place] [address] Dr. Yariel Herrera ALT [Catalytic activity/Vol] 17 U/L Normal 14-59 [facility] Comment on above: Performed By: #### C MP, TSH #### [facility] [address] [place] [address] Dr. Yariel Herrera Anion gap [Moles/Vol] 10.1 mmol/L Normal [facility] Comment on above: Performed By: #### C MP, TSH #### [facility] [address] [place] [address] Dr. Yariel Herrera AST [Catalytic activity/Vol] 14 U/L Critically low 15-37 [facility] Comment on above: Performed By: #### C MP, TSH #### [facility] [address] [place] [address] Dr. Yariel Herrera Bilirubin [Mass/Vol] 0.3 mg/dL Normal 0.2-1.0 [facility] Comment on above: Performed By: #### C MP, TSH #### [facility] [address] [address] [address] Yariel Herrera Calcium [Mass/Vol] 9.4 mg/dL Normal 8.5-10.1 [facility] Comment on above: Performed By: #### C MP, TSH #### [facility] [address] [address] [address] Yariel Herrera Chloride [Moles/Vol] 103 mmol/L Normal 98-107 [facility] Comment on above: Performed By: #### C MP, TSH #### [facility] [address] [address] [address] Yariel Herrera CO2 [Moles/Vol] 30.9 mmol/L Normal 21.0-32.0 [facility] Comment on above: Performed By: #### C MP, TSH #### [facility] [address] [place] [address] Dr. Yariel Herrera Creatinine [Mass/Vol] 0.88 mg/dL Normal 0.55-1.02 [facility] Comment on above: Performed By: #### C MP, TSH #### [facility] [address] [place] [address] Dr. Yariel Herrera EGFR-AF SYRIAN >60 Normal >=60 [facility] Comment on above: Performed By: #### C MP, TSH #### [facility] [address] [address] [address] Yariel Herrera EGFR-NON AF SYRIAN >60 Normal >=60 [facility] Comment on above: Performed By: #### C MP, TSH #### [facility] [address] [place] [address] Dr. Yariel Herrera Globulin (S) [Mass/Vol] 3.5 g/dL Normal [facility] Comment on above: Performed By: #### C MP, TSH #### [facility] [address] [address] [address] Yariel Herrera Glucose [Mass/Vol] 117 mg/dL Critically high 74-106 [facility] Comment on above: Performed By: #### C MP, TSH #### [facility] [address] [address] [address] Yariel Herrera Potassium [Moles/Vol] 4.0 mmol/L Normal 3.5-5.1 [facility] Comment on above: Performed By: #### C MP, TSH #### [facility] [address] [place] [address] Dr. Yariel Herrera Protein [Mass/Vol] 7.4 g/dL Normal 6.4-8.2 [facility] Comment on above: Performed By: #### C MP, TSH #### [facility] [address] [place] [address] Dr. Yariel Herrera Sodium [Moles/Vol] 140 mmol/L Normal 136-145 [facility] Comment on above: Performed By: #### C MP, TSH #### [facility] [address] [place] [address] Dr. Yariel Herrera Urea nitrogen [Mass/Vol] 18.0 mg/dL Normal 7.0-18.0 [facility] Comment on above: Performed By: #### C MP, TSH #### [facility] [address] [place] [address] Dr. Yariel Herrera Urea nitrogen/Creatinine [Mass ratio] 20.5 mg/mg Normal [facility] Comment on above: Performed By: #### C MP, TSH #### [facility] [address] [address] [address] Yariel Herrera TSHon 01-05-2022 TSH 1.380 uIU/mL Normal 0.358-3.740 [facility] Comment on above: Performed By: #### C MP, TSH #### [facility] [address] [place] [address] Dr. Yariel Herrera GLYCOHEMOGLOBIN A1Con 2021 ADA RECOMMENDATION SEE BELOW Normal [facility] Comment on above: Result Comment: ADA RECOMMENDED LIMIT 4.0 - 6.0 ADA THERAPEUTIC TARGET < 7.0 ACTION SUGGESTED > 7.0 Performed By: #### A 1C #### [facility] [address] [place] [address] Dr. Yariel Herrera Glucose [Mass/Vol] 137 mg/dL Normal [facility] Comment on above: Performed By: #### A 1C #### [facility] [address] [address] [address] Yariel Herrera HbA1c (Bld) [Mass fraction] 6.4 % Critically high 4.5-6.2 [facility] Comment on above: Performed By: #### A 1C #### [facility] [address] [id number] Yariel Herrera ECHOCARDIO M/2D COMPLETEon 0 10-16-2021 ECHOCARDIO M/2D COMPLETE Patient: STEPHAN LÓPEZ Exam Date: 10/16/2021 : 1960 Gender:F Ordering : CARL WILLIS Admission #: [id number] Family : Order #: [id number] CLICK HERE TO VIEW EXAM ECHOCARDIOGRAM REPORT [...] Melvin M.D. on 10/16/2021 at 17:12 Normal [facility] ECHOCARDIO M/2D COMPLETEon 0 09-16-2021 ECHOCARDIO M/2D COMPLETE Patient: STEPHAN LÓPEZ Exam Date: 09/16/2021 : 1960 Gender:F Ordering : GAURAV GAYLA MARTINEZ [facility] Admission #: [id number] Family : Order #: [id number] CLICK HERE TO VIEW EXAM ECHOCARDIOGRAM REPORT [...] M.D. on 09/17/2021 at 13:02 Normal [facility] CBC AUTO DIFFon 08-04-2021 BASO # 0.1 103/ul Normal 0.0-0.1 [facility] Comment on above: Performed By: #### C BC #### [facility] [address] [id number] Yariel Herrera Basophils/100 WBC (Bld) 0.6 % Normal 0.2-2.0 [facility] Comment on above: Performed By: #### C BC #### [facility] [address] [address] [address] Yariel Herrera EO # 0.1 103/ul Normal 0.0-0.7 [facility] Comment on above: Performed By: #### C BC #### [facility] [address] [address] [address] Yariel Herrera Eosinophils/100 WBC (Bld) 0.9 % Normal 0.9-7.0 [facility] Comment on above: Performed By: #### C BC #### [facility] [address] [address] [address] Yariel Herrera Erythrocyte distribution width (RBC) [Ratio] 13.8 % Normal 11.0-15.0 [facility] Comment on above: Performed By: #### C BC #### [facility] [address] [address] [address] Yariel Herrera Hematocrit (Bld) [Volume fraction] 47.1 % Normal 36.0-48.0 [facility] Comment on above: Performed By: #### C BC #### [facility] [address] [address] [address] Yariel Herrera Hemoglobin (Bld) [Mass/Vol] 15.2 g/dL Normal 12.0-16.0 [facility] Comment on above: Performed By: #### C BC #### [facility] [address] [address] [address] Yariel Herrera IG # 0.04 10e3/ul Critically high 0.00-0.03 [facility] Comment on above: Performed By: #### C BC #### [facility] [address] [place] [address] Dr. Yariel Herrera IG % 0.3 % Normal 0.0-0.5 [facility] Comment on above: Performed By: #### C BC #### [facility] [address] [place] [address] Dr. Yariel Herrera LYMPH # 3.7 103/ul Normal 1.2-3.8 [facility] Comment on above: Performed By: #### C BC #### [facility] [address] [place] [address] Dr. Yariel Herrera Lymphocytes/100 WBC (Bld) 30.6 % Normal 20.5-60.0 [facility] Comment on above: Performed By: #### C BC #### [facility] [address] [place] [address] Dr. Yariel Herrera MANUAL DIFF REQ NO Normal [facility] Comment on above: Performed By: #### C BC #### [facility] [address] [place] [address] Dr. Yariel Herrera MCH (RBC) [Entitic mass] 32.0 pg Normal 26.7-34.0 [facility] Comment on above: Performed By: #### C BC #### [facility] [address] [place] [address] Dr. Yariel Herrera MCHC (RBC) [Mass/Vol] 32.3 g/dL Normal 29.9-35.2 [facility] Comment on above: Performed By: #### C BC #### [facility] [address] [place] [address] Dr. Yariel Herrera MCV (RBC) [Entitic vol] 99.2 fL Critically high 81.0-99.0 [facility] Comment on above: Performed By: #### C BC #### [facility] [address] [place] [address] Dr. Yariel Herrera MONO # 0.9 103/ul Critically high 0.3-0.8 [facility] Comment on above: Performed By: #### C BC #### [facility] [address] [place] [address] Dr. Yariel Herrera Monocytes/100 WBC (Bld) 7.4 % Normal 1.7-12.0 [facility] Comment on above: Performed By: #### C BC #### [facility] [address] [place] [address] Dr. Yariel Herrera NEUT # 7.3 103/ul Critically high 1.4-6.5 [facility] Comment on above: Performed By: #### C BC #### [facility] [address] [place] [address] Dr. Yariel Herrera Neutrophils/100 WBC (Bld) 60.2 % Normal 43.0-75.0 [facility] Comment on above: Performed By: #### C BC #### [facility] [address] [place] [address] Dr. Yariel Herrera Platelet mean volume (Bld) [Entitic vol] 11.7 fL Normal 9.5-13.5 [facility] Comment on above: Performed By: #### C BC #### [facility] [address] [place] [address] Dr. Yariel Herrera PLT 330 103/ul Normal 150-450 [facility] Comment on above: Performed By: #### C BC #### [facility] [address] [place] [address] Dr. Yariel Herrera RBC 4.75 106/ul Normal 4.20-5.40 [facility] Comment on above: Performed By: #### C BC #### [facility] [address] [place] [address] Dr. Yariel Herrera WBC 12.1 103/ul Critically high 4.0-11.0 [facility] Comment on above: Performed By: #### C BC #### [facility] [address] [place] [address] Dr. Yariel Herrera FREE T3on 08-04-2021 FREE T3 2.46 pg/mlL Normal 2.18-3.98 [facility] Comment on above: Performed By: #### C BC #### [facility] [address] [place] [address] Dr. Yariel Herrera FREE T4on 08-04-2021 Free T4 [Mass/Vol] 1.08 ng/dL Normal 0.76-1.46 [facility] Comment on above: Performed By: #### F T4 #### [facility] [address] [place] [address] Dr. Yariel Herrera PROF 14(COMP METB)on 022 Albumin [Mass/Vol] 4.2 g/dL Normal 3.4-5.0 [facility] Comment on above: Performed By: #### C BC #### [facility] [address] [place] [address] Dr. Yariel Herrera Albumin/Globulin [Mass ratio] 1.2 {ratio} Normal [facility] Comment on above: Performed By: #### C BC #### [facility] [address] [place] [address] Dr. Yariel Herrera ALP [Catalytic activity/Vol] 87 U/L Normal 46-116 [facility] Comment on above: Performed By: #### C BC #### [facility] [address] [place] [address] Dr. Yariel Herrera ALT [Catalytic activity/Vol] 25 U/L Normal 14-59 [facility] Comment on above: Performed By: #### C BC #### [facility] [address] [place] [address] Dr. Yariel Herrera Anion gap [Moles/Vol] 13.3 mmol/L Normal [facility] Comment on above: Performed By: #### C BC #### [facility] [address] [place] [address] Dr. Yariel Herrera AST [Catalytic activity/Vol] 15 U/L Normal 15-37 [facility] Comment on above: Performed By: #### C BC #### [facility] [address] [place] [address] Dr. Yariel Herrera Bilirubin [Mass/Vol] 0.5 mg/dL Normal 0.2-1.0 [facility] Comment on above: Performed By: #### C BC #### [facility] [address] [place] [address] Dr. Yariel Herrera Calcium [Mass/Vol] 9.6 mg/dL Normal 8.5-10.1 [facility] Comment on above: Performed By: #### C BC #### [facility] [address] [place] [address] Dr. Yariel Herrera Chloride [Moles/Vol] 103 mmol/L Normal 98-107 [facility] Comment on above: Performed By: #### C BC #### [facility] [address] [place] [address] Dr. Yariel Herrera CO2 [Moles/Vol] 28.9 mmol/L Normal 21.0-32.0 [facility] Comment on above: Performed By: #### C BC #### [facility] [address] [place] [address] Dr. Yariel Herrera Creatinine [Mass/Vol] 0.84 mg/dL Normal 0.55-1.02 [facility] Comment on above: Performed By: #### C BC #### [facility] [address] [place] [address] Dr. Yariel Herrera EGFR-AF SYRIAN >60 Normal >=60 [facility] Comment on above: Performed By: #### C BC #### [facility] [address] [place] [address] Dr. Yariel Herrera EGFR-NON AF SYRIAN >60 Normal >=60 [facility] Comment on above: Performed By: #### C BC #### [facility] [address] [place] [address] Dr. Yariel Herrera Globulin (S) [Mass/Vol] 3.4 g/dL Normal [facility] Comment on above: Performed By: #### C BC #### [facility] [address] [place] [address] Dr. Yariel Herrera Glucose [Mass/Vol] 111 mg/dL Critically high 74-106 [facility] Comment on above: Performed By: #### C BC #### [facility] [address] [place] [address] Dr. Yariel Herrera Potassium [Moles/Vol] 4.2 mmol/L Normal 3.5-5.1 [facility] Comment on above: Performed By: #### C BC #### [facility] [address] [address] [address] Yariel Herrera Protein [Mass/Vol] 7.6 g/dL Normal 6.4-8.2 [facility] Comment on above: Performed By: #### C BC #### [facility] [address] [address] [address] Yariel Herrera Sodium [Moles/Vol] 141 mmol/L Normal 136-145 [facility] Comment on above: Performed By: #### C BC #### [facility] [address] [address] [address] Yariel Herrera Urea nitrogen [Mass/Vol] 15.0 mg/dL Normal 7.0-18.0 [facility] Comment on above: Performed By: #### C BC #### [facility] [address] [address] [address] Yariel Herrera Urea nitrogen/Creatinine [Mass ratio] 17.9 mg/mg Normal [facility] Comment on above: Performed By: #### C BC #### [facility] [address] [address] [address] Yariel Herrera TSHon 08-04-2021 TSH 1.073 uIU/mL Normal 0.358-3.740 [facility] Comment on above: Performed By: #### C BC #### [facility] [address] [address] [address] Yariel Herrera TSH RANGE SEE BELOW Normal [facility] Comment on above: Result Comment: <0.3 4 UIU/ml HYPERTHYROID 0.34-5.60 UIU/ml EUTHYROID >5.60 UIU/ml HYPOTHYROID Performed By: #### C BC #### [facility] [address] [address] [address] Yariel Herrera Encounters Encounter Date Encounter Type Care Provider Facility Start: 10-26-2023 ambulatory Gayla lynch [employer] Facility:[facility] Start: 10-26-2023 End: 10-26-2023 ambulatory Gayla Martinez [employer] Facility[facility] Start: 09-27-2023 End: 09-27-2023 ambulatory Lara Mar MD Facility:[facility] Start: 08-30-2023 End: 08-30-2023 ambulatory Lara Mar MD Facility:[facility] Start: 07-27-2023 End: 07-27-2023 ambulatory GAYLA MARTINEZ Not Available Start: 07-05-2023 End: 07-05-2023 ambulatory Lara Mar MD Facility:[facility] Start: 06-14-2023 End: 06-14-2023 ambulatory Lara Mar MD Facility:[facility] Start: 05-25-2023 End: 05-25-2023 ambulatory Dasha HODGES-C Facility:[facility] Start: 05-10-2023 End: 05-10-2023 ambulatory Lara Mar MD Facility:[facility] Start: 05-04-2023 End: 05-04-2023 ambulatory Delfino Snider III, MD Facility:[facility] Start: 04-26-2023 End: 04-26-2023 ambulatory GAYLA MARTINEZ Not Available Start: 04-08-2023 Clinisync Result Encounter Gayla Martinez [employer] Work Phone: [facility] Unsolicited Start: 04-08-2023 Clinisync Result Encounter Gayla Martinez [employer] Work Phone: [facility] Unsolicited Start: 04-07-2023 Refill Gayla Martinez [employer] Work Phone: [facility] Comment on above: COPD with exacerbati on (CMS/HCC) (Primary Dx) Start: 02-08-2023 End: 02-08-2023 ambulatory Dasha Waggoner PA-C Facility:[facility] Start: 01-25-2023 End: 01-25-2023 ambulatory GAYLA MARTINEZ Not Available Start: 01-19-2023 End: 01-19-2023 ambulatory DANTE LIONCKER [facility] Start: 12-22-2022 End: 12-22-2022 ambulatory Dasha Waggoner PA-C Facility:[facility] Start: 11-26-2022 End: 11-26-2022 ambulatory Dasha Waggoner PA-C Facility:[facility] Start: 11-23-2022 End: 11-23-2022 ambulatory Lara Mar MD Facility:[facility] Start: 07-03-2022 End: 07-03-2022 ambulatory [facility] Start: 06-17-2022 End: 06-18-2022 ambulatory INA LINKS Facility:[facility] Start: 06-10-2022 End: 06-10-2022 ambulatory [facility] Start: 05-08-2022 End: 05-09-2022 ambulatory MOHAMAD ALGHOTHANI Facility:[facility] Start: 01-05-2022 End: 01-06-2022 ambulatory MOHAMAD ALGHOTHANI Facility:[facility] Start: 11-05-2021 End: 11-06-2021 ambulatory [employer] GAYLA SHIRAZ Facility:[facility] Start: 10-16-2021 End: 10-17-2021 ambulatory MOHAMAD ALGHOTHANI Facility:[facility] Start: 09-16-2021 End: 09-17-2021 ambulatory [employer] GAYLA SHIRAZ Facility:[facility] Start: 08-04-2021 End: 08-05-2021 ambulatory [employer] GAYLA SHIRAZ Facility:[facility] Procedures Date Procedure Procedure Detail Performing Clinician Start: 04-08-2023 [facility] Gayla Martinez [employer] Work Phone: Start: 12-03-2022 Mammography Gayla jerome [employer] Work Phone: Start: 04-20-2013 Colonoscopy Gayla jerome [employer] Work Phone: Plan of Treatment Date Care Activity Detail Author Start: 09-08-2026 Screening for malign ant neoplasm of colon [facility] Start: 12-04-2023 Screening for malign ant neoplasm of breast Mammogram [facility] Start: 08-22-2023 Influenza vaccination Influenza Vacc ine (#1) [facility] Comment on above: Postponed from 10/23 (Other Medical Reasons) Start: 07-24-2023 Screening for malign ant neoplasm of cervix Cervical Cancer Screening [facility] Comment on above: Postponed from 02/03 (Other Medical Reasons) Start: 05-30-2023 Urine screening for protein Diabetes: Urine Protein Screening [facility] Start: 04-26-2023 Glaucoma screening Diabetes: R etinopathy Screening [facility] Comment on above: Postponed from 02/03 (Other Medical Reasons) Start: 04-26-2023 End: 04-26-2023 Patient encounter procedure 04/26/2023 9:00 AM EST Office Visit [facility] [address] [place] [id number] Gayla Martinez NP [address] [place] [id number] [facility] Start: 03-05-2023 Hemoglobin A1c measurement Diabetes: Hemoglobin A1C [facility] Start: 02-03-1990 Screening for malign ant neoplasm of cervix HPV/Cotest [facility] Start: 02-03-1981 Screening for malign ant neoplasm of cervix Pap Smear [facility] Start: 1960 Screening for malign ant neoplasm of colon [facility] Immunizations Immunization Date Immunization Notes Care Provider Fa cili 01-06-2022 influenza virus vacc ine, unspecified formulation Gayla Martinez [employer] Work Phone: [facility] Payers Date Payer Category Payer Private Health Insurance 2022 Medicaid [employer] [place] [id number] 2022-Present [address] [place] [address] [id number] 1960 Unknown [id number] 2.16.840.1.912191.3.579.2. 593 1960 Unknown [id number] 2.16.840.1.069564.3.579.2. 593 1960 Unknown [id number] 2.16.840.1.543639.3.579.2. 593 1960 Unknown [id number] 2.16.840.1.071120.3.579.2. 593 1960 Unknown [id number] 2.16.840.1.900458.3.579.2. 593 1960 Unknown [id number] 2.16.840.1.661118.3.579.2. 593 1960 Unknown [id number] 2.16.840.1.298950.3.579.2. 593 1960 Unknown [id number] 2.16.840.1.672158.3.579.2. 1259 1960 Unknown [id number] 2.16.840.1.894776.3.579.2. 1259 1960 Unknown [id number] 2.16.840.1.300841.3.579.2. 1259 1960 Unknown [id number] 2.16.840.1.256301.3.579.2. 196 1960 Unknown [id number] 2.16.840.1.034746.3.579.2. 196 1960 Unknown [id number] 2.16.840.1.031398.3.579.2. 196 1960 Unknown [id number] 2.16.840.1.169947.3.579.2. 196 1960 Unknown [id number] 2.16.840.1.626971.3.579.2. 196 1960 Unknown [id number] 2.16.840.1.263598.3.579.2. 196 1960 Unknown [id number] 2.16.840.1.131608.3.579.2. 196 1960 Unknown [id number] 2.16.840.1.518319.3.579.2. 196 1960 Unknown [id number] 2.16.840.1.256415.3.579.2. 196 1960 Unknown [id number] 2.16.840.1.948244.3.579.2. 1960 Unknown [id number] 2.16.840.1.534004.3.579.2. 1960 Unknown [id number] 2.16.840.1.162519.3.579.2. 1960 Unknown [id number] 2.16.840.1.034126.3.579.2. 196 1959 Unknown [id number] 1959 Unknown [id number] Social History Date Type Detail Facility Start: 01-25-2023 Tobacco smoking stat [facility] Smokes tobacco daily [facility] History of tobacco use Cigarette Smoker [facility] Start: 01-25-2023 Cigarettes smoked cu rrent (pack per day) - Reported 0.5 [facility] Start: 01-25-2023 Tobacco use and exposure Smoke less tobacco non-user [facility] Start: 02-08-2023 Alcohol intake Lifetime non-d mairaa (finding) [facility] Start: 01-25-2023 Tobacco use panel [facility] Start: 1960 Sex Assigned At Not on file N [facility] Medical Equipment Procedure Code Equipment Code Equipment Original Text Equi pment Identifier Dates 1 Device Daily as needed. [id number] Clinical Notes 06-10-2022 to 01-19-2023 Note Date & Type Note Facility 01-19-2023 Note Cardiovascular Medic [facility] SUBJECTIVE Chief Complaint Patient presents with Follow-up Hypertension Stephan López is a 62 y.o. female here for follow-up. HPI PMHx: HTN, pericardial effusion, HLD She denies any cardiac concerns today. She has back problems. She is 5 months s/p surgery and she is still recovering. She is following with pain management at [facility]. She is not currently checking her [...] needed. Dante Hand NP [facility] 01-19-2023 Note Patient here for 6 [...] All other systems reviewed and are negative. [facility] 07-03-2022 Note No concerning [facility] 07-03-2022 Note Hypertension is well controlled 120/84 Reviewed b/p log and overall her b/p is controlled with some outliers of high and low b/p. Renal function was normal s/p starting lisinopril [facility] 07-03-2022 Note Patient here for 1 [...] All other systems reviewed and are negative. [facility] 07-03-2022 Note [facility] CARDIOLOGY PROGR ESS [...] effusion No concerning symptoms RTC 6 months [facility] 06-10-2022 Note F/U with PCP [facility] 06-10-2022 Note Hypertension is 145/ 99 uncontrolled Will start lisinopril 2.5 mg daily BMP in 1 week Start monitoring b/p at home and record on a log, RTC 1 month D/W pt about side effects of 1st dose low b/p and dry persistent cough [facility] 06-10-2022 Note Recent echo with not ed trivial effusion. No recent illness or any concerning symptoms [facility] 06-10-2022 Note [facility] CARDIOLOGY PROGR ESS [...] with PCP RTC 1 month for re-evaluation [facility] 06-10-2022 Note Patient here for 6 m o follow up pericardial effusion. Had echo in April 2022. Denies chest pain and SOB. Review of Systems Musculoskeletal: Positive for back pain. All other systems reviewed and are negative. [facility] Evaluation note Diagnosis COPD with exacerbation [...] and content) DATE CREATED AUTHOR 06/21/2022 [facility] DATE CREATED AUTHOR AUTHOR'S ORGANIZ ATION 03/20/2023 [facility] DATE CREATED AUTHOR AUTHOR'S ORGANIZ ATION 07/28/2023 [facility] DATE CREATED AUTHOR AUTHOR'S ORGANIZ ATION 10/27/2023 [facility] Care Teams (unrecognized sec tion and content) [employer]ather[employer] Relationship Specialty Start Date End Date Jim Deleon MD [address] [place] [address] PCP - General Family Medicine 09/18/22 Gayla Martinez NP [address] [place] [address] Referring Physician Nurse Practitioner 09/18/22 [employer]ather[employer] Relationship Specialty Start Date End Date Jim Deleon MD [address] [place] [address] PCP - General Family Medicine 09/18/22 Gayla Martinez NP [address] [place] [address] Referring Physician Nurse Practitioner 09/18/22 [...] BE BASED ON THE PRIMARY CLINICAL RECORDS. [facility] [employer] [facility]. provides no warranty or guarantee of the accuracy or completeness of information in this document.
--- NOTE | 2023-11-03 10:52 | PM.CN ---
Consult Note: HPI Data of Consult Patient: known to practice within the last 3 years Requesting Physician: Gwendolyn Salamanca NP Primary Care Provider: Gayla Martinez NP Consult Narrative Reason for consult: f/u Narrative: Stephan muniz pleasant 63 year old female presents for evaluation and management of chronic back pain. Today pain 3/10 in right low back and right hip, describes as a sharp burning pain. Patient has a hx of L3,4,5 fusion. Patient has found mild benefit to current medication regimen, no side effects. Patient continues to have moderate to severe pain that is severely impacting functional ability, DIONNA 49%. Patient has completed aquatherapy without improvement. Patient recently underwent right superior cluneal RFA with 30% improvement ongoing. cc:: CC: Gwendolyn Salamanca NP Review of Systems ROS Status of ROS 10 or more systems reviewed and unremarkable except as noted in history and below Musculoskeletal Reports: back pain, extremity pain and joint pain PFSH [facility] Medical History Low back pain ?M54.50 - Low back pain, unspecified (ICD-10) Osteoarthritis ?M19.90 - Unspecified osteoarthritis, unspecified site (ICD-10) Diabetes ?E11.9 - Type 2 diabetes mellitus without complications (ICD-10) COPD (chronic obstructive pulmonary disease) ?J44.9 - Chronic obstructive pulmonary disease, unspecified (ICD-10) Smoker ?F17.200 - Nicotine dependence, unspecified, uncomplicated (ICD-10) Hypertension ?I10 - Essential (primary) hypertension (ICD-10) Surgical History S/P surgical removal of pilonidal cyst ?Z98.890 - Other specified postprocedural states (ICD-10) H/O lumbosacral spine surgery ?Z98.890 - Other specified postprocedural states (ICD-10) Meds Home Medications and Allergies Home Medications ?Medication ?Instructions ?Recorded ?Confirmed ?Type amitriptyline 10 mg tablet 25 mg PO DAILY 11/23/22 09/27/23 History atorvastatin 20 mg tablet 20 mg PO DAILY 11/23/22 09/27/23 History ferrous sulfate 325 mg (65 mg 325 mg PO DAILY 11/23/22 09/27/23 History iron) tablet (FeroSul) fluticasone fur. 100 mcg-umeclid 1 inh inhalation DAILY 11/23/22 09/27/23 History 62.5 mcg-vilant 25 mcg inhalat.powder (Trelegy Ellipta) lisinopril 2.5 mg tablet 2.5 mg PO DAILY 11/23/22 09/27/23 History metformin 500 mg tablet 500 mg PO BID 11/23/22 09/27/23 History tizanidine 4 mg capsule 4 mg PO DAILY PRN muscle spasticity 11/23/22 09/27/23 History meloxicam 15 mg tablet 15 mg PO DAILY 04/15/23 09/27/23 History naloxone 4 mg/actuation nasal 4 mg intranasal Q3M PRN opioid 05/19/23 09/27/23 Rx spray (Narcan) overdose #2 ea tramadol 50 mg tablet 50 mg PO BID PRN pain #60 tabs 05/19/23 09/27/23 Rx tramadol 50 mg tablet 50 mg PO DAILY PRN pain #30 tabs 08/18/23 09/27/23 Rx fluticasone propionate 50 intranasal 08/30/23 History mcg/actuation nasal spray,suspension loratadine 10 mg tablet 10 mg PO DAILY 08/30/23 09/27/23 History tizanidine 4 mg tablet 4 mg PO DAILY PRN muscle 10/01/23 Rx spasticity #30 tabs tramadol 50 mg tablet 50 mg PO DAILY PRN pain #30 tabs 10/01/23 Rx tizanidine 4 mg capsule 4 mg PO QDAY PRN muscle spasticity 10/04/23 Rx #30 caps tramadol 50 mg tablet 50 mg PO DAILY PRN pain #30 tabs 10/04/23 Rx Allergies Allergy/AdvReac Type Severity Reaction Status Date / Time No Known Drug Allergies Allergy Verified 09/27/23 10:08 Exam Constitutional Documenting provider has reviewed patient's vital signs: yes Common normals: no apparent distress, oriented x3, healthy appearing, alert and well nourished General appearance: cooperative HENMT Common normals: normocephalic, hearing grossly normal bilaterally and moist oral mucous membranes Head and scalp: normocephalic Eye Common normals: PERRL Pupil: PERRL Neck & C-Spine Common normals: full ROM General: normal visual inspection Chest Common normals: inspection of chest normal Respiratory Common normals: normal respiratory effort, no retractions and no use of accessory muscles Back & Pelvis Lumbar spine/lower back: ROM limited, pain with ROM, lumbar spinal tenderness, straight leg raise positive right and straight leg raise positive left Sacroiliac joints: SI joint(s) abnormal Other: facet loading bilateral positive radiculopathy following bilateral L5/S1 pattern, strength 5/5 in BLE right SIJ pain over PSIS, positive DECLAN, FADIR, thigh thrust, gaenslens Extremity Common normals: normal to inspection and full ROM Neuro Common normals: oriented x3, CN's II-XII intact bilaterally, moves all extremities, no focal motor deficits, no sensory deficits noted and deep tendon reflexes 2+ bilaterally Sensorium/orientation: alert Gait (neuro): antalgic and assistive device used cane Motor exam: strength 5/5 throughout and no movement abnormalities noted Psych Common normals: mental status grossly normal, thought process normal, cooperative, affect normal, speech normal and activity/motor behavior normal Speech: normal speech Thought process: normal thought process Results Additional Findings Additional findings: If on a controlled substance or opioids, I have checked an [place]AR[place] report on this patient and there are no aberrancies noted in the prescribing history.??If on a controlled substance or opioid a drug screen was completed and reviewed within the last year, and if there has not been a drug screen completed we ordered one today to monitor higher risk, state monitored pain medication use. As part of providing excellent, safe, comprehensive care, the following was completed at our patient's visit: 1. A medication reconciliation and review to ensure accurate knowledge of current/active medications, including asking our patients to inform us about any [id number] medications or herbal remedies/nutritional supplements/alternative remedies. 2. A review to specifically ensure our patients have had annual screening for screening for depression, screening for tobacco use, and screening for unhealthy alcohol use. For concerning screenings had a discussion with the patient, provided patient education, and recommended follow-up with primary care provider when appropriate. If patient noted with a risk of falling, they received education on strength, gait, and balance training to prevent future risk of falling. Assessment and Plan Assessment and Plan (1) Lumbar stenosis with neurogenic claudication: (2) Lumbar radiculopathy: (3) Chronic right-sided low back pain without sciatica: Assessment and Plan: 30% improvement ongoing from right superior cluneal RFA (4) Lumbar spondylosis: (5) Chronic prescription opiate use: Assessment and Plan: I feel these medications are improving the patient's quality of life and allow them to tolerate activities of daily living as well as participate in recreational activity.? The patient does not report intolerable side effects. The patient is NOT opioid naive and non-pharmacologic and non-opioid treatment has failed to significantly relieve the patient's pain and improve functionality. The patient has a diagnosis that is related to a somatic or visceral pain etiology. ? ?? I reviewed with the patient the potential risks and side effects with the use of? opioid medications including but not limited to respiratory depression,? sedation, and even . I verified the patient has access to naloxone should? these effects occur. I advised the patient to avoid the use of any other? sedation substances including alcohol, THC, and benzodiazepines while? taking opioid medications due to the risk of compounding side effects and? detrimental outcomes. I reviewed the [employer], pain treatment agreement, urine? drug screen, and opioid start talking forms. The patient was advised to let? their family know they had Naloxone in case they would need to administer? the medication.? ?? A drug screen was completed within the last year, and no aberrancies were noted regarding their use of controlled substances. The patient understands they are subject to the terms and conditions of the pain contract that they have signed. ? ?? I have checked an OARRS report on this patient today and there are no aberrancies noted in the prescribing history.? (6) Failed back syndrome: (7) Sacroiliitis: (8) Muscle spasm: Plan bilateral L5-S1 TFESI under fluoroscopy with steroid rotation as previous bilateral L5-S1 TFESI did not provide >50% improvement greater than 3 months continue current medications f/u 2 weeks after injection
== END 2023-11-03 10:15 | disposition home or self-care (01) ==
LOC: PM 10:14
PROVIDERS: PCP Nurse Practitioner; Visit Provider Nurse Practitioner
DX: M48.062 Spinal stenosis, lumbar region with neurogenic claudication (principal); M54.16 Radiculopathy, lumbar region; M47.816 Spondylosis without myelopathy or radiculopathy, lumbar region; Z79.891 Long term (current) use of opiate analgesic; M96.1 Postlaminectomy syndrome, not elsewhere classified; M46.1 Sacroiliitis, not elsewhere classified; M62.838 Other muscle spasm
CPT/HCPCS: G0463

== ENCOUNTER 2023-11-22 07:52 | Day surgery (SDC) | payer OTHER, SELFPAY ==
--- OUTSIDE RECORDS SUMMARY | 2023-11-22 07:55 | XMS_ITS | CCD ---
Author Organization [facility] Care Team Providers Care Case Folder Name Role Phone ALGHOEVELINEANI, MOHAMAD Attending Unavailable AICHHOLZ, SHIP DESIGN TEACHER GAYLA Primary Care Unavailable ALGHOTHANI, MOHAMAD Consulting Unavailable ALGHOTHANI, MOHAMAD Admitting Unavailable AICHHOLZ, SHIP DESIGN TEACHER GAYLA Primary Care Unavailable AICHHOLZ, SHIP DESIGN TEACHER GAYLA Admitting Unavailable AICHHOLZ, SHIP DESIGN TEACHER GAYLA Attending Unavailable AICHHOLZ, SHIP DESIGN TEACHER GAYLA Consulting Unavailable ALGHOTHANI, MOHAMAD Attending Unavailable AICHHOLZ, SHIP DESIGN TEACHER GAYLA Primary Care Unavailable ALGHOTHANI, MOHAMAD Consulting Unavailable ALGHOTHANI, MOHAMAD Admitting Unavailable ALGHOTHANI, MOHAMAD Attending Unavailable AICHHOLZ, SHIP DESIGN TEACHER GAYLA Primary Care Unavailable ALGHOTHANI, MOHAMAD Consulting Unavailable ALGHOTHANI, MOHAMAD Admitting Unavailable ALEX, INA Attending Unavailable ALEX, INA Admitting Unavailable ALEX, INA Consulting Unavailable AICHHOLZ, SHIP DESIGN TEACHER GAYLA Primary Care Unavailable AICHHOLZ, SHIP DESIGN TEACHER GAYLA Admitting Unavailable AICHHOLZ, SHIP DESIGN TEACHER GAYLA Attending Unavailable AICHHOLZ, SHIP DESIGN TEACHER GAYLA Consulting Unavailable AICHHOLZ, SHIP DESIGN TEACHER GAYLA Primary Care Unavailable AICHHOLZ, SHIP DESIGN TEACHER GAYLA Admitting Unavailable AICHHOLZ, SHIP DESIGN TEACHER GAYLA Attending Unavailable AICHHOLZ, SHIP DESIGN TEACHER GAYLA Consulting Unavailable AICHHOLZ, SHIP DESIGN TEACHER GAYLA Primary Care Unavailable ALEX, INA Attending Unavailable ALEX, INA Attending Unavailable DANTE HAND Attending Unavailable Aichholz PHYSICAL DAMAGE APPRAISER, Gayla Unavailable Pancho BOWIE, Jim Primary Care Provider SHIRAZ, GAYLA Attending Unavailable AICHHOLZ, GAYLA Attending Unavailable AICHHOLZ, GAYLA Attending Unavailable Isabela BOWIE, Lara Amos Attending Unavailable Isabela BOWIE, Lara Amos Attending Unavailable Isabela BOWIE, Lara Amos Attending Unavailable Isbaela BOWIE, Lara Amos Attending Unavailable Isabela BOWIE, Lara Amos Attending Unavailable Edilson PA-C, Dasha Pedro Attending Unavailab rose Snider III, MD, Delfino Holder U navailable Edilson PA-C, Dasha Pedro Attending Unavailab le Unavailable, Physician Primary Care Unavailab le Edilson PA-C, Dasha Pedro Attending Unavailab le Unavailable, Physician Primary Care Unavailab le Aichholz INSPECTOR BARREL-SHIP DESIGN TEACHER, Gayla Cook Primary Care Unava ilable Edilson PA-C, Dasha Pedro Attending Unavailab le Aichholz INSPECTOR BARREL-SHIP DESIGN TEACHER, Gayla Cook Primary Care Unava ilable Edilson PA-C, Dasha Pedro Attending Unavailab le Edilson PA-C, Dasha Pedro Attending Unavailab le Edilson PA-C, Dasha Pedro Attending Unavailab le Isabela BOWIE, Lara Amos Attending Unavailable Allergies Allergy Classification Reported Allergen(s) Allergy Type Date of Onset Reaction(s) Facility (3 sources) pregabalin; Translations: [PREGABALIN] Drug Allergy 3 [facility] Repository (1 source) No Known Medication Allergies; Translations: [No Known Medication Allergies] Propensity to adverse reactions to drug (disorder) [facility] Repository Medications Current Medications Medication Drug [...] oral solution (2 sources) alpha-Adrenergic Agonist, Uncompetitive N-ikeksy-E-aspartat e Receptor Antagonist, Sigma-1 Agonist Start: 04-07-2023 [...] Letter ARCELIA Santos [address] [place] [address] Re: Stephan López Date of Visit: 10/26/2023 Dear Gayla PANIAGUA, This patient was recently seen in the neurosurgical office. Please see attached note for further details. Let me know if you have any questions or concerns. Sincerely, MICHELLE Engle Providers: Gwendolyn Salamanca The following document(s) were included in the letter: October 26, 2023 14:35:44 EDT - (10/26/2023) Neurosurgery Office Visit Note Normal [facility] Neurosurgery Office/Clinic N oteon 10-26-2023 Neurosurgery Office/Clinic [...] or weakness. She continues to follow with [facility] pain management and has undergone previous L5-S1 transforaminal SVITLANA 05/10/2023 with approximately 2 to 3 weeks incomplete benefit. She has also undergone bilateral sacroiliac joint injections. She is utilizing meloxicam and tizanidine once daily for pain as well as tramadol on rare occasion. Recent imaging (provider interpretation): MRI lumbar 08/03/2023 at [facility] reveals evidence of L3-5 posterior spinal fusion [...] facet arthropathy. Lumbar flexion/extension x-rays 04/30/2023 at [facility] reveals straightening of lumbar lordosis. Evidence of L3-5 posterior spinal fusion with instrumentation and interbody fusion L4-5. No evidence of hardware fracture or pullout. Patient found to have degenerative disc disease L2-3 and L5-S1. There is slight retrolisthesis L2-3 as well as unchanged anterior listhesis at her surgerized L4-5 segment. No evidence of dynamic instability. CT lumbar spine 02/03/2023 at [facility] reveals evidence of L3-5 posterior [...] central/left paracentral (more content not included)... Normal [facility] Neurosurgery Office/Clinic N oteon 05-25-2023 Neurosurgery Office/Clinic [...] undergone an L5-S1 transforaminal SVITLANA 05/10/2023 by [facility] pain management which did give her approximately 2 to 3 weeks of incomplete benefit. She is planned for bilateral sacroiliac joint injections in the near future. The patient has discontinued her LSO brace that continues her electromagnetic stimulator 8 hours/day. Recent imaging (provider interpretation): Lumbar flexion/extension x-rays 04/30/2023 at [facility] reveals straightening of lumbar lordosis. Evidence of L3-5 posterior spinal fusion with instrumentation and interbody fusion L4-5. No evidence of hardware fracture or pullout. Patient found to have degenerative disc disease L2-3 and L5-S1. There is slight retrolisthesis L2-3 as well as unchanged anterior listhesis at her surgerized L4-5 segment. No evidence of dynamic instability. CT lumbar spine 02/03/2023 at [facility] reveals evidence of L3-5 posterior [...] prior imaging. CT lumbar spine 10/14/2022 at [facility] reveals evidence of L3-5 decompression [...] which c (more content not included)... Normal [facility] INFLUENZA A AND B AGon 0 04-08-2023 INFLUENZA VIRUS A ANTIGEN Positive Abnormal [facility] Comment on above: NOTE: Live attenuate d influenza vaccine viruses can cause a positive result for a rapid influenza diagnostic test if administered up to 7 days prior to rapid testing. INFLUENZA VIRUS B ANTIGEN Negative [facility] Comment on above: Negative for Flu B p rotein antigen. Infection due to Flu B cannot be ruled out. Flu B antigen in the sample may be below the detection limit of the test. Interpretation and review of laboratory results Abnormal [facility] 36on 03-19-2023 36 Please let her know her labs showed normal kidney function. Can continue lisinopril. Thank you Normal [facility] Telephoneon 03-19-2023 Telephone [id number] James López Lin 1960 F Date Provider Department Center 03/19/2023 DANTE BAIG [facility] Family History Problem Relation Age of Onset Other Mother Heart attack Father Other Father Other Father Other Maternal Grandmother Family Status - Relation Status Age at Mother Father Maternal Grandmother Normal [facility] Neurosurgery Office/Clinic N oteon 02-08-2023 [...] and tizanidine as provided by pain management ([facility] pain management) only as needed and has not yet returned to NSAID medication. She continues to utilize nicotine and understands the deleterious effects of nicotine on her overall health and bony arthrodesis. Recent imaging (provider interpretation): CT lumbar spine 02/03/2023 at [facility] reveals evidence of L3-5 posterior [...] prior imaging. CT lumbar spine 10/14/2022 at [facility] reveals evidence of L3-5 decompression [...] bladder inc (more content not included)... Normal [facility] Office Visiton 01-19-2023 Follow-up visit [id number] James López 1960 F Date Provider Department Center 01/19/2023 DANTE BAIG Family History Problem Relation Age of Onset Other Mother Heart attack Father Other Father Other Father Other Maternal Grandmother Family Status - Relation Status Age at Mother Father Maternal Grandmother Level of Service:[address] [place] OFFICE/OUTPATIENT ESTABLISHED LOW MDM 20-29 MIN Reason for Visit and Comments: Follow-up [155070] Hypertension [368807] Normal [facility] Neurosurgery Office/Clinic N oteon 12-22-2022 [...] 2 times per week. She follows with [facility] pain management which is a transition from [facility] pain management group. She continues to [...] prior imaging. CT lumbar spine 10/14/2022 at [facility] reveals evidence of L3-5 decompression [...] demonstrates normal respiratory effort She presents in [facility] lock brace with proper fit and alignment. This was removed at the time of today's visit for incision evaluation. Lumbosacral incision appears well-healed and without erythema, edema, drainage or warmth. She notes mild tenderness (more content not included)... Normal [facility] Neurosurgery Office/Clinic N oteon 11-26-2022 Neurosurgery [...] recently transferred pain management care from [facility] to [facility]. Per the patient, they eventually would like her to initiate hot water physical therapy though only after receiving clearance from this office. Recent imaging (provider interpretation): CT lumbar spine 10/14/2022 at [facility] reveals evidence of L3-5 decompression [...] demonstrates normal respiratory effort She presents in [facility] lock brace with proper fit and alignment. [...] lower extre (more content not included)... Normal [facility] Office Visiton 07-03-2022 Follow-up visit [id number] James López 1960 F Date Provider Department Center 07/03/2022 Dory-INA JOHNSON Family History Problem Relation Age of Onset Other Mother Heart attack Father Other Father Other Father Other Maternal Grandmother Family Status - Relation Status Age at Mother Father Maternal Grandmother Level of Service:[address]1975 [place] OFFICE/OUTPATIENT ESTABLISHED LOW MDM 20-29 MIN Reason for Visit and Comments: Hypertension [237257] pericardial effusion [Other] Normal [facility] PROF CHEM 8 (BAS METB)on Anion gap [Moles/Vol] 12.9 mmol/L Normal [facility] Comment on above: Performed By: #### C BC #### [facility] [address] [place] [address] Dr. Yariel Herrera Calcium [Mass/Vol] 9.0 mg/dL Normal 8.5-10.1 [facility] Comment on above: Performed By: #### C BC #### [facility] [address] [place] [address] Dr. Yariel Herrera Chloride [Moles/Vol] 106 mmol/L Normal 98-107 [facility] Comment on above: Performed By: #### C BC #### [facility] [address] [place] [address] Dr. Yariel Herrera CO2 [Moles/Vol] 28.3 mmol/L Normal 21.0-32.0 [facility] Comment on above: Performed By: #### C BC #### [facility] [address] [place] [address] Dr. Yariel Herrera Creatinine [Mass/Vol] 0.81 mg/dL Normal 0.55-1.02 [facility] Comment on above: Performed By: #### C BC #### [facility] [address] [place] [address] Dr. Yariel Herrera EGFR-AF IRANIAN >60 Normal >=60 [facility] Comment on above: Performed By: #### C BC #### [facility] [address] [place] [address] Dr. Yariel Herrera EGFR-NON AF IRANIAN >60 Normal >=60 [facility] Comment on above: Performed By: #### C BC #### [facility] [address] [place] [address] Dr. Yariel Herrera Glucose [Mass/Vol] 103 mg/dL Normal 74-106 [facility] Comment on above: Performed By: #### C BC #### [facility] [address] [place] [address] Dr. Yariel Herrera Potassium [Moles/Vol] 4.2 mmol/L Normal 3.5-5.1 [facility] Comment on above: Performed By: #### C BC #### [facility] [address] [address] [address] Yariel Herrera Sodium [Moles/Vol] 143 mmol/L Normal 136-145 [facility] Comment on above: Performed By: #### C BC #### [facility] [address] [address] [address] Yariel Herrera Urea nitrogen [Mass/Vol] 9.0 mg/dL Normal 7.0-18.0 [facility] Comment on above: Performed By: #### C BC #### [facility] [address] [address] [address] Yariel Herrera Urea nitrogen/Creatinine [Mass ratio] 11.1 mg/mg Normal [facility] Comment on above: Performed By: #### C BC #### [facility] [address] [address] [address] Yariel Herrera 37on 06-10-2022 37 Start lisinopril 2.5 mg daily, Have labs/blood checked in 1 week for kidney function Monitor b/p at home 1-2 times/day and record on a log- bring with her to next visit. If you notice a dry, persistent cough- stop lisinopril and call office please. Normal [facility] Office Visiton 06-10-2022 Follow-up visit [id number] James López 1960 F Date Provider Department Center 06/10/2022 INA JONES [facility] Family History Problem Relation Age of Onset Other Mother Heart attack Father Other Father Other Father Other Maternal Grandmother Family Status - Relation Status Age at Mother Father Maternal Grandmother Level of Service:74130 [place] OFFICE/OUTPATIENT ESTABLISHED MOD MDM 30-39 MIN Normal [facility] ECHOCARDIO M/2D COMPLETEon 0 05-08-2022 ECHOCARDIO M/2D COMPLETE Patient: STEPHAN LÓPEZ. Exam Date: 05/08/2022 : 1960 Gender:F Ordering : CARL WILLIS Admission #: [id number] Family : GAURAV MARTINEZ [facility] Order #: [id number] CLICK HERE TO VIEW EXAM ECHOCARDIOGRAM REPORT [...] M.D. on 05/08/2022 at 14:20 Normal [facility] ABHINAV by IFAon 01-08-2022 Antinuclear Antibodies, IFA Negative Normal [facility] Comment on above: Result Comment: Nega tive <1:80 Borderline 1:80 Positive >1:80 ICAP nomenclature: AC-0 For more information about Hep-2 cell patterns use ANApatterns.org, the official website for the International Consensus on Antinuclear Antibody (ABHINAV) Patterns (ICAP). Performed By: #### A LUC #### [facility] [address] [place] [address] Dr. Yariel Herrera CBC AUTO DIFFon 01-05-2022 BASO # 0.1 103/ul Normal 0.0-0.1 [facility] Comment on above: Performed By: #### C BC #### [facility] [address] [place] [address] Dr. Yariel Herrera Basophils/100 WBC (Bld) 0.6 % Normal 0.2-2.0 [facility] Comment on above: Performed By: #### C BC #### [facility] [address] [place] [address] Dr. Yariel Herrera EO # 0.2 103/ul Normal 0.0-0.7 [facility] Comment on above: Performed By: #### C BC #### [facility] [address] [place] [address] Dr. Yariel Herrera Eosinophils/100 WBC (Bld) 1.4 % Normal 0.9-7.0 [facility] Comment on above: Performed By: #### C BC #### [facility] [address] [place] [address] Dr. Yariel Herrera Erythrocyte distribution width (RBC) [Ratio] 13.6 % Normal 11.0-15.0 [facility] Comment on above: Performed By: #### C BC #### [facility] [address] [place] [address] Dr. Yariel Herrera Hematocrit (Bld) [Volume fraction] 46.6 % Normal 36.0-48.0 [facility] Comment on above: Performed By: #### C BC #### [facility] [address] [place] [address] Dr. Yariel Herrera Hemoglobin (Bld) [Mass/Vol] 15.4 g/dL Normal 12.0-16.0 [facility] Comment on above: Performed By: #### C BC #### [facility] [address] [place] [address] Dr. Yariel Herrera IG # 0.03 10e3/ul Normal 0.00-0.03 [facility] Comment on above: Performed By: #### C BC #### [facility] [address] [place] [address] Dr. Yariel Herrera IG % 0.2 % Normal 0.0-0.5 [facility] Comment on above: Performed By: #### C BC #### [facility] [address] [place] [address] Dr. Yariel Herrera LYMPH # 4.2 103/ul Critically high 1.2-3.8 [facility] Comment on above: Performed By: #### C BC #### [facility] [address] [place] [address] Dr. Yariel Herrera Lymphocytes/100 WBC (Bld) 31.3 % Normal 20.5-60.0 [facility] Comment on above: Performed By: #### C BC #### [facility] [address] [place] [address] Dr. Yariel Herrera MANUAL DIFF REQ NO Normal [facility] Comment on above: Performed By: #### C BC #### [facility] [address] [place] [address] Dr. Yariel Herrera MCH (RBC) [Entitic mass] 31.6 pg Normal 26.7-34.0 [facility] Comment on above: Performed By: #### C BC #### [facility] [address] [place] [address] Dr. Yariel Herrera MCHC (RBC) [Mass/Vol] 33.0 g/dL Normal 29.9-35.2 [facility] Comment on above: Performed By: #### C BC #### [facility] [address] [place] [address] Dr. Yariel Herrrea MCV (RBC) [Entitic vol] 95.7 fL Normal 81.0-99.0 [facility] Comment on above: Performed By: #### C BC #### [facility] [address] [address] [address] Yariel Herrera MONO # 0.9 103/ul Critically high 0.3-0.8 [facility] Comment on above: Performed By: #### C BC #### [facility] [address] [address] [address] Yariel Herrera Monocytes/100 WBC (Bld) 6.8 % Normal 1.7-12.0 [facility] Comment on above: Performed By: #### C BC #### [facility] [address] [address] [address] Yariel Herrera NEUT # 8.0 103/ul Critically high 1.4-6.5 [facility] Comment on above: Performed By: #### C BC #### [facility] [address] [address] [address] Yariel Herrera Neutrophils/100 WBC (Bld) 59.7 % Normal 43.0-75.0 [facility] Comment on above: Performed By: #### C BC #### [facility] [address] [address] [address] Yariel Herrera Platelet mean volume (Bld) [Entitic vol] 10.7 fL Normal 9.5-13.5 [facility] Comment on above: Performed By: #### C BC #### [facility] [address] [address] [address] Yariel Herrera PLT 340 103/ul Normal 150-450 [facility] Comment on above: Performed By: #### C BC #### [facility] [address] [address] [address] Yariel Herrera RBC 4.87 106/ul Normal 4.20-5.40 [facility] Comment on above: Performed By: #### C BC #### [facility] [address] [address] [address] Yariel Herrera WBC 13.4 103/ul Critically high 4.0-11.0 [facility] Comment on above: Performed By: #### C BC #### [facility] [address] [place] [address] Dr. Yariel Herrera FREE T4on 01-05-2022 Free T4 [Mass/Vol] 1.06 ng/dL Normal 0.76-1.46 [facility] Comment on above: Performed By: #### C BC #### [facility] [address] [place] [address] Dr. Yariel Herrera PROF 14(COMP METB)on 022 Albumin [Mass/Vol] 3.9 g/dL Normal 3.4-5.0 [facility] Comment on above: Performed By: #### C MP, TSH #### [facility] [address] [place] [address] Dr. Yariel Herrera Albumin/Globulin [Mass ratio] 1.1 {ratio} Normal [facility] Comment on above: Performed By: #### C MP, TSH #### [facility] [address] [place] [address] Dr. Yariel Herrera ALP [Catalytic activity/Vol] 99 U/L Normal 46-116 [facility] Comment on above: Performed By: #### C MP, TSH #### [facility] [address] [place] [address] Dr. Yariel Herrera ALT [Catalytic activity/Vol] 17 U/L Normal 14-59 [facility] Comment on above: Performed By: #### C MP, TSH #### [facility] [address] [place] [address] Dr. Yariel Herrera Anion gap [Moles/Vol] 10.1 mmol/L Normal [facility] Comment on above: Performed By: #### C MP, TSH #### [facility] [address] [place] [address] Dr. Yariel Herrera AST [Catalytic activity/Vol] 14 U/L Critically low 15-37 [facility] Comment on above: Performed By: #### C MP, TSH #### [facility] [address] [place] [address] Dr. Yariel Herrera Bilirubin [Mass/Vol] 0.3 mg/dL Normal 0.2-1.0 [facility] Comment on above: Performed By: #### C MP, TSH #### [facility] [address] [address] [address] Yariel Herrera Calcium [Mass/Vol] 9.4 mg/dL Normal 8.5-10.1 [facility] Comment on above: Performed By: #### C MP, TSH #### [facility] [address] [address] [address] Yariel Herrera Chloride [Moles/Vol] 103 mmol/L Normal 98-107 [facility] Comment on above: Performed By: #### C MP, TSH #### [facility] [address] [address] [address] Yariel Herrera CO2 [Moles/Vol] 30.9 mmol/L Normal 21.0-32.[address] [facility] Comment on above: Performed By: #### C MP, TSH #### [facility] [address] [place] [address] Dr. Yariel Herrera Creatinine [Mass/Vol] 0.88 mg/dL Normal 0.55-1.02 [facility] Comment on above: Performed By: #### C MP, TSH #### [facility] [address] [place] [address] Dr. Yariel Herrera EGFR-AF IRANIAN >60 Normal >=[address] [facility] Comment on above: Performed By: #### C MP, TSH #### [facility] [address] [address] [address] Yariel Herrera EGFR-NON AF IRANIAN >60 Normal >=60 [facility] Comment on above: Performed By: #### C MP, TSH #### [facility] [address] [place] [address] Dr. Yariel Herrera Globulin (S) [Mass/Vol] 3.5 g/dL Normal [facility] Comment on above: Performed By: #### C MP, TSH #### [facility] [address] [address] [address] Yariel Herrera Glucose [Mass/Vol] 117 mg/dL Critically high 74-106 [facility] Comment on above: Performed By: #### C MP, TSH #### [facility] [address] [address] [address] Yariel Herrera Potassium [Moles/Vol] 4.0 mmol/L Normal 3.5-5.1 [facility] Comment on above: Performed By: #### C MP, TSH #### [facility] [address] [place] [address] Dr. Yariel Herrera Protein [Mass/Vol] 7.4 g/dL Normal 6.4-8.2 [facility] Comment on above: Performed By: #### C MP, TSH #### [facility] [address] [place] [address] Dr. Yariel Herrera Sodium [Moles/Vol] 140 mmol/L Normal 136-145 [facility] Comment on above: Performed By: #### C MP, TSH #### [facility] [address] [place] [address] Dr. Yariel Herrera Urea nitrogen [Mass/Vol] 18.0 mg/dL Normal 7.0-18.0 [facility] Comment on above: Performed By: #### C MP, TSH #### [facility] [address] [place] [address] Dr. Yariel Herrera Urea nitrogen/Creatinine [Mass ratio] 20.5 mg/mg Normal [facility] Comment on above: Performed By: #### C MP, TSH #### [facility] [address] [address] [address] Yariel Herrera TSHon 01-05-2022 TSH 1.380 uIU/mL Normal 0.358-3.740 [facility] Comment on above: Performed By: #### C MP, TSH #### [facility] [address] [place] [address] Dr. Yariel Herrera GLYCOHEMOGLOBIN A1Con 2021 ADA RECOMMENDATION SEE BELOW Normal [facility] Comment on above: Result Comment: ADA RECOMMENDED LIMIT 4.0 - 6.0 ADA THERAPEUTIC TARGET < 7.0 ACTION SUGGESTED > 7.0 Performed By: #### A 1C #### [facility] [address] [place] [address] Dr. Yariel Herrera Glucose [Mass/Vol] 137 mg/dL Normal [facility] Comment on above: Performed By: #### A 1C #### [facility] [address] [address] [address] Yariel Herrera HbA1c (Bld) [Mass fraction] 6.4 % Critically high 4.5-6.2 [facility] Comment on above: Performed By: #### A 1C #### [facility] [id number] Yariel Herrera ECHOCARDIO M/2D COMPLETEon 0 10-16-2021 ECHOCARDIO M/2D COMPLETE Patient: STEPHAN LÓPEZ Exam Date: 10/16/2021 : 1960 Gender:F Ordering : CARL WILLIS Admission #: [id number] Family : Order #: [id number] CLICK HERE TO VIEW EXAM ECHOCARDIOGRAM REPORT [...] Melvin M.D. on 10/16/2021 at 17:12 Normal [facility] ECHOCARDIO M/2D COMPLETEon 0 09-16-2021 ECHOCARDIO M/2D COMPLETE Patient: STEPHAN LÓPEZ Exam Date: 09/16/2021 : 1960 Gender:F Ordering : GAURAV GAYLA MARTINEZ [facility] Admission #: [id number] Family : Order #: [id number] CLICK HERE TO VIEW EXAM ECHOCARDIOGRAM REPORT [...] M.D. on 09/17/2021 at 13:02 Normal [facility] CBC AUTO DIFFon 08-04-2021 BASO # 0.1 103/ul Normal 0.0-0.1 [facility] Comment on above: Performed By: #### C BC #### [facility] [id number] Yariel Herrera Basophils/100 WBC (Bld) 0.6 % Normal 0.2-2.0 [facility] Comment on above: Performed By: #### C BC #### [facility] [address] [address] [address] Yariel Herrera EO # 0.1 103/ul Normal 0.0-0.7 [facility] Comment on above: Performed By: #### C BC #### [facility] [address] [address] [address] Yariel Herrera Eosinophils/100 WBC (Bld) 0.9 % Normal 0.9-7.0 [facility] Comment on above: Performed By: #### C BC #### [facility] [address] [address] [address] Yariel Herrera Erythrocyte distribution width (RBC) [Ratio] 13.8 % Normal 11.0-15.0 [facility] Comment on above: Performed By: #### C BC #### [facility] [address] [address] [address] Yariel Herrera Hematocrit (Bld) [Volume fraction] 47.1 % Normal 36.0-48.0 [facility] Comment on above: Performed By: #### C BC #### [facility] [address] [address] [address] Yariel Herrera Hemoglobin (Bld) [Mass/Vol] 15.2 g/dL Normal 12.0-16.0 [facility] Comment on above: Performed By: #### C BC #### [facility] [address] [address] [address] Yariel Herrera IG # 0.04 10e3/ul Critically high 0.00-0.03 [facility] Comment on above: Performed By: #### C BC #### [facility] [address] [place] [address] Dr. Yariel Herrera IG % 0.3 % Normal 0.0-0.5 [facility] Comment on above: Performed By: #### C BC #### [facility] [address] [place] [address] Dr. Yariel Herrera LYMPH # 3.7 103/ul Normal 1.2-3.8 [facility] Comment on above: Performed By: #### C BC #### [facility] [address] [place] [address] Dr. Yariel Herrera Lymphocytes/100 WBC (Bld) 30.6 % Normal 20.5-60.0 [facility] Comment on above: Performed By: #### C BC #### [facility] [address] [place] [address] Dr. Yariel Herrera MANUAL DIFF REQ NO Normal [facility] Comment on above: Performed By: #### C BC #### [facility] [address] [place] [address] Dr. Yariel Herrera MCH (RBC) [Entitic mass] 32.0 pg Normal 26.7-34.0 [facility] Comment on above: Performed By: #### C BC #### [facility] [address] [place] [address] Dr. Yariel Herrera MCHC (RBC) [Mass/Vol] 32.3 g/dL Normal 29.9-35.2 [facility] Comment on above: Performed By: #### C BC #### [facility] [address] [place] [address] Dr. Yariel Herrera MCV (RBC) [Entitic vol] 99.2 fL Critically high 81.0-99.0 [facility] Comment on above: Performed By: #### C BC #### [facility] [address] [place] [address] Dr. Yariel Herrera MONO # 0.9 103/ul Critically high 0.3-0.8 [facility] Comment on above: Performed By: #### C BC #### [facility] [address] [place] [address] Dr. Yariel Herrera Monocytes/100 WBC (Bld) 7.4 % Normal 1.7-12.0 [facility] Comment on above: Performed By: #### C BC #### [facility] [address] [place] [address] Dr. Yariel Herrera NEUT # 7.3 103/ul Critically high 1.4-6.5 [facility] Comment on above: Performed By: #### C BC #### [facility] [address] [place] [address] Dr. Yariel Herrera Neutrophils/100 WBC (Bld) 60.2 % Normal 43.0-75.0 [facility] Comment on above: Performed By: #### C BC #### [facility] [address] [place] [address] Dr. Yariel Herrera Platelet mean volume (Bld) [Entitic vol] 11.7 fL Normal 9.5-13.5 [facility] Comment on above: Performed By: #### C BC #### [facility] [address] [place] [address] Dr. Yariel Herrera PLT 330 103/ul Normal 150-450 [facility] Comment on above: Performed By: #### C BC #### [facility] [address] [place] [address] Dr. Yariel Herrera RBC 4.75 106/ul Normal 4.20-5.40 [facility] Comment on above: Performed By: #### C BC #### [facility] [address] [place] [address] Dr. Yariel Herrera WBC 12.1 103/ul Critically high 4.0-11.0 [facility] Comment on above: Performed By: #### C BC #### [facility] [address] [place] [address] Dr. Yariel Herrera FREE T3on 08-04-2021 FREE T3 2.46 pg/mlL Normal 2.18-3.98 [facility] Comment on above: Performed By: #### C BC #### [facility] [address] [place] [address] Dr. Yariel Herrera FREE T4on 08-04-2021 Free T4 [Mass/Vol] 1.08 ng/dL Normal 0.76-1.46 The [facility] Comment on above: Performed By: #### F T4 #### [facility] [address] [place] [address] Dr. Yariel Herrera PROF 14(COMP METB)on 022 Albumin [Mass/Vol] 4.2 g/dL Normal 3.4-5.0 [facility] Comment on above: Performed By: #### C BC #### [facility] [address] [place] [address] Dr. Yariel Herrera Albumin/Globulin [Mass ratio] 1.2 {ratio} Normal [facility] Comment on above: Performed By: #### C BC #### [facility] [address] [place] [address] Dr. Yariel Herrera ALP [Catalytic activity/Vol] 87 U/L Normal 46-116 [facility] Comment on above: Performed By: #### C BC #### [facility] [address] [place] [address] Dr. Yariel Herrera ALT [Catalytic activity/Vol] 25 U/L Normal 14-59 [facility] Comment on above: Performed By: #### C BC #### [facility] [address] [place] [address] Dr. Yariel Herrera Anion gap [Moles/Vol] 13.3 mmol/L Normal [facility] Comment on above: Performed By: #### C BC #### [facility] [address] [place] [address] Dr. Yariel Herrera AST [Catalytic activity/Vol] 15 U/L Normal 15-37 [facility] Comment on above: Performed By: #### C BC #### [facility] [address] [place] [address] Dr. Yariel Herrera Bilirubin [Mass/Vol] 0.5 mg/dL Normal 0.2-1.0 [facility] Comment on above: Performed By: #### C BC #### [facility] [address] [place] [address] Dr. Yariel Herrera Calcium [Mass/Vol] 9.6 mg/dL Normal 8.5-10.1 [facility] Comment on above: Performed By: #### C BC #### [facility] [address] [place] [address] Dr. Yariel Herrera Chloride [Moles/Vol] 103 mmol/L Normal 98-107 [facility] Comment on above: Performed By: #### C BC #### [facility] [address] [place] [address] Dr. Yariel Herrera CO2 [Moles/Vol] 28.9 mmol/L Normal 21.0-32.[address] [facility] Comment on above: Performed By: #### C BC #### [facility] [address] [place] [address] Dr. Yariel Herrera Creatinine [Mass/Vol] 0.84 mg/dL Normal 0.55-1.02 [facility] Comment on above: Performed By: #### C BC #### [facility] [address] [place] [address] Dr. Yariel Herrera EGFR-AF IRANIAN >60 Normal >=[address] [facility] Comment on above: Performed By: #### C BC #### [facility] [address] [place] [address] Dr. Yariel Herrera EGFR-NON AF IRANIAN >60 Normal >=60 [facility] Comment on above: Performed By: #### C BC #### [facility] [address] [place] [address] Dr. Yariel Herrera Globulin (S) [Mass/Vol] 3.4 g/dL Normal [facility] Comment on above: Performed By: #### C BC #### [facility] [address] [place] [address] Dr. Yariel Herrera Glucose [Mass/Vol] 111 mg/dL Critically high 74-106 [facility] Comment on above: Performed By: #### C BC #### [facility] [address] [place] [address] Dr. Yariel Herrera Potassium [Moles/Vol] 4.2 mmol/L Normal 3.5-5.1 [facility] Comment on above: Performed By: #### C BC #### [facility] [address] [address] [address] Yariel Herrera Protein [Mass/Vol] 7.6 g/dL Normal 6.4-8.2 [facility] Comment on above: Performed By: #### C BC #### [facility] [address] [address] [address] Yariel Herrera Sodium [Moles/Vol] 141 mmol/L Normal 136-145 [facility] Comment on above: Performed By: #### C BC #### [facility] [address] [address] [address] Yariel Herrera Urea nitrogen [Mass/Vol] 15.0 mg/dL Normal 7.0-18.0 [facility] Comment on above: Performed By: #### C BC #### [facility] [address] [address] [address] Yariel Herrera Urea nitrogen/Creatinine [Mass ratio] 17.9 mg/mg Normal [facility] Comment on above: Performed By: #### C BC #### [facility] [address] [address] [address] Yariel Herrera TSHon 08-04-2021 TSH 1.073 uIU/mL Normal 0.358-3.740 [facility] Comment on above: Performed By: #### C BC #### [facility] [address] [address] [address] Yariel Herrera TSH RANGE SEE BELOW Normal [facility] Comment on above: Result Comment: <0.3 4 UIU/ml HYPERTHYROID 0.34-5.60 UIU/ml EUTHYROID >5.60 UIU/ml HYPOTHYROID Performed By: #### C BC #### [facility] [address] [address] [address] Yariel Herrera Encounters Encounter Date Encounter Type Care Provider Facility Start: 10-26-2023 ambulatory Gayla lynch INSPECTOR [employer] DESIGN TEACHER Facility:[facility] Start: 10-26-2023 End: 10-26-2023 ambulatory Gayla Martinez INSPECTOR [employer]REL-[employer] DESIGN TEACHER Facility:[facility] Start: 09-27-2023 End: 09-27-2023 ambulatory Lara Mar MD Facility:[facility] Start: 08-30-2023 End: 08-30-2023 ambulatory Lara Mar MD Facility:[facility] Start: 07-27-2023 End: 07-27-2023 ambulatory GAYLA MARTINEZ Not Available Start: 07-05-2023 End: 07-05-2023 ambulatory Lara Mar MD Facility:[facility] Start: 06-14-2023 End: 06-14-2023 ambulatory Lara Mar MD Facility:[facility] Start: 05-25-2023 End: 05-25-2023 ambulatory Dasha HODGES-C Facility:[facility] Start: 05-10-2023 End: 05-10-2023 ambulatory Lara Mar MD Facility:[facility] Start: 05-04-2023 End: 05-04-2023 ambulatory Delfino Snider III, MD Facility:[facility] Start: 04-26-2023 End: 04-26-2023 ambulatory GAYLA MARTINEZ Not Available Start: 04-08-2023 Clinisync Result Encounter Gayla Martinez PHYSICAL DAMAGE APPRAISER Work Phone: [facility] Unsolicited Start: 04-08-2023 Clinisync Result Encounter Gayla Martinez PHYSICAL DAMAGE APPRAISER Work Phone: [facility] Unsolicited Start: 04-07-2023 Refill Gayla Martinez PHYSICAL DAMAGE APPRAISER Work Phone: [facility] Comment on above: COPD with exacerbati on (CMS/HCC) (Primary Dx) Start: 02-08-2023 End: 02-08-2023 ambulatory Dasha Waggoner PA-C Facility:[facility] Start: 01-25-2023 End: 01-25-2023 ambulatory GAYLA MARTINEZ Not Available Start: 01-19-2023 End: 01-19-2023 ambulatory DANTE LIONCKER [facility] Start: 12-22-2022 End: 12-22-2022 ambulatory Dasha Waggoner PA-C Facility:[facility] Start: 11-26-2022 End: 11-26-2022 ambulatory Dasha Waggoner PA-C Facility:[facility] Start: 11-23-2022 End: 11-23-2022 ambulatory Lara Mar MD Facility:[facility] Start: 07-03-2022 End: 07-03-2022 ambulatory [facility] Start: 06-17-2022 End: 06-18-2022 ambulatory INA LINKS Facility:[facility] Start: 06-10-2022 End: 06-10-2022 ambulatory [facility] Start: 05-08-2022 End: 05-09-2022 ambulatory MOHAMAD ALGHOTHANI Facility:[facility] Start: 01-05-2022 End: 01-06-2022 ambulatory MOHAMAD ALGHOTHANI Facility:[facility] Start: 11-05-2021 End: 11-06-2021 ambulatory SHIP DESIGN TEACHER GAYLA SHIRAZ Facility:[facility] Start: 10-16-2021 End: 10-17-2021 ambulatory MOHAMAD ALGHOTHANI Facility:[facility] Start: 09-16-2021 End: 09-17-2021 ambulatory SHIP DESIGN TEACHER GAYLA SHIRAZ Facility:[facility] Start: 08-04-2021 End: 08-05-2021 ambulatory SHIP DESIGN TEACHER GAYLA SHIRAZ Facility:[facility] Procedures Date Procedure Procedure Detail Performing Clinician Start: 04-08-2023 [facility] INFLUENZA A AND B AG Gayla Martinez PHYSICAL DAMAGE APPRAISER Work Phone: Start: 12-03-2022 Mammography Gayla jerome PHYSICAL DAMAGE APPRAISER Work Phone: Start: 04-20-2013 Colonoscopy Gayla jerome PHYSICAL DAMAGE APPRAISER Work Phone: Plan of Treatment Date Care Activity Detail Author Start: 09-08-2026 Screening for malign ant neoplasm of colon [facility] Start: 12-04-2023 Screening for malign ant neoplasm of breast Mammogram [facility] Start: 08-22-2023 Influenza vaccination Influenza Vacc ine (#1) [facility] Comment on above: Postponed from 10/23 (Other Medical Reasons) Start: 07-24-2023 Screening for malign ant neoplasm of cervix Cervical Cancer Screening [facility] Comment on above: Postponed from 02/03 (Other Medical Reasons) Start: 05-30-2023 Urine screening for protein Diabetes: Urine Protein Screening [facility] Start: 04-26-2023 Glaucoma screening Diabetes: R etinopathy Screening [facility] Comment on above: Postponed from 02/03 (Other Medical Reasons) Start: 04-26-2023 End: 04-26-2023 Patient encounter procedure 04/26/2023 9:00 AM EST Office Visit [facility] [address] [place] [id number] Gayla Martinez NP [address] [place] [id number] [facility] Start: 03-05-2023 Hemoglobin A1c measurement Diabetes: Hemoglobin A1C [facility] Start: 02-03-1990 Screening for malign ant neoplasm of cervix HPV/Cotest [facility] Start: 02-03-1981 Screening for malign ant neoplasm of cervix Pap Smear [facility] Start: 1960 Screening for malign ant neoplasm of colon [facility] Immunizations Immunization Date Immunization Notes Care Provider Fa cili 01-06-2022 influenza virus vacc ine, unspecified formulation Gayla Martinez PHYSICAL DAMAGE APPRAISER Work Phone: [facility] Payers Date Payer Category Payer Private Health Insurance 2022 Medicaid [employer] [place] [id number] 2022-Present [address] [place] [address] [id number] 1960 Unknown [id number] 2.16.840.1.270523.3.579.2. 593 1960 Unknown [id number] 2.16.840.1.125539.3.579.2. 593 1960 Unknown [id number] 2.16.840.1.863316.3.579.2. 593 1960 Unknown [id number] 2.16.840.1.621339.3.579.2. 593 1960 Unknown [id number] 2.16.840.1.338362.3.579.2. 593 1960 Unknown [id number] 2.16.840.1.610563.3.579.2. 593 1960 Unknown [id number] 2.16.840.1.834865.3.579.2. 593 1960 Unknown [id number] 2.16.840.1.427018.3.579.2. 1259 1960 Unknown [id number] 2.16.840.1.545244.3.579.2. 1259 1960 Unknown [id number] 2.16.840.1.548731.3.579.2. 1259 1960 Unknown [id number] 2.16.840.1.177043.3.579.2. 196 1960 Unknown [id number] 2.16.840.1.784026.3.579.2. 196 1960 Unknown [id number] 2.16.840.1.378354.3.579.2. 196 1960 Unknown [id number] 2.16.840.1.587919.3.579.2. 196 1960 Unknown [id number] 2.16.840.1.476583.3.579.2. 196 1960 Unknown [id number] 2.16.840.1.162545.3.579.2. 196 1960 Unknown [id number] 2.16.840.1.795787.3.579.2. 196 1960 Unknown [id number] 2.16.840.1.965778.3.579.2. 196 1960 Unknown [id number] 2.16.840.1.017226.3.579.2. 196 1960 Unknown [id number] 2.16.840.1.485722.3.579.2. 1960 Unknown [id number] 2.16.840.1.407570.3.579.2. 1960 Unknown [id number] 2.16.840.1.688970.3.579.2. 1960 Unknown [id number] 2.16.840.1.710744.3.579.2. 196 1959 Unknown [id number] 1959 Unknown [id number] Social History Date Type Detail Facility Start: 01-25-2023 Tobacco smoking stat [facility] Smokes tobacco daily [facility] History of tobacco use Cigarette Smoker [facility] Start: 01-25-2023 Cigarettes smoked cu rrent (pack per day) - Reported 0.5 [facility] Start: 01-25-2023 Tobacco use and exposure Smoke less tobacco non-user [facility] Start: 02-08-2023 Alcohol intake Lifetime non-d mariaa (finding) [facility] Start: 01-25-2023 Tobacco use panel [facility] Start: 1960 Sex Assigned At Not on file N [facility] Medical Equipment Procedure Code Equipment Code Equipment Original Text Equi pment Identifier Dates 1 Device Daily as needed. [id number] Clinical Notes 06-10-2022 to 01-19-2023 Note Date & Type Note Facility 01-19-2023 Note Cardiovascular Medic [facility] SUBJECTIVE Chief Complaint Patient presents with Follow-up Hypertension Stephan López is a 62 y.o. female here for follow-up. HPI PMHx: HTN, pericardial effusion, HLD She denies any cardiac concerns today. She has back problems. She is 5 months s/p surgery and she is still recovering. She is following with pain management at [facility]. She is not currently checking her [...] needed. Dante Hand NP [facility] Cardiovascular [facility] 01-19-2023 Note Patient here for [...] All other systems reviewed and are negative. [facility] 07-03-2022 Note No concerning [facility] 07-03-2022 Note Hypertension is well controlled 120/84 Reviewed b/p log and overall her b/p is controlled with some outliers of high and low b/p. Renal function was normal s/p starting lisinopril [facility] 07-03-2022 Note Patient here for [...] All other systems reviewed and are negative. [facility] 07-03-2022 Note [facility] CARDIOLOGY PROGR [...] effusion No concerning symptoms RTC 6 months [facility] 06-10-2022 Note F/U with PCP [facility] 06-10-2022 Note Hypertension is 145/ 99 uncontrolled Will start lisinopril 2.5 mg daily BMP in 1 week Start monitoring b/p at home and record on a log, RTC 1 month D/W pt about side effects of 1st dose low b/p and dry persistent cough [facility] 06-10-2022 Note Recent echo with not ed trivial effusion. No recent illness or any concerning symptoms [facility] 06-10-2022 Note [facility] CARDIOLOGY PROGR ESS NOTE HPI: Stephan López is a 62 y.o. female here for routine f/U for pericardial effusion. At the time, patient denied any cardiac complaints. She denied any chest pain or shortness of breath. She denies any cardiac history. No history of ND, PCI, CHF. Repeat echocardiogram demonstrated a trivial [...] with PCP RTC 1 month for re-evaluation [facility] 06-10-2022 Note Patient here for 6 m o follow up pericardial effusion. Had echo in April 2022. Denies chest pain and SOB. Review of Systems Musculoskeletal: Positive for back pain. All other systems reviewed and are negative. [facility] Evaluation note Diagnosis COPD with [...] and content) DATE CREATED AUTHOR 06/21/2022 [facility] DATE CREATED AUTHOR AUTHOR'S ORGANIZ ATION 03/20/2023 [facility] DATE CREATED AUTHOR AUTHOR'S ORGANIZ ATION 07/28/2023 [facility] DATE CREATED AUTHOR AUTHOR'S ORGANIZ ATION 10/27/2023 [facility] Care Teams (unrecognized sec tion and content) Case Folder Relationship Specialty Start Date End Date Jim Deleon MD [address] [place] [address] PCP - General Family Medicine 09/18/22 Gayla Martinez NP [address] [place] [address] Referring Physician Nurse Practitioner 09/18/22 Case Folder Relationship Specialty Start Date End Date Jim Deleon MD [address] [place] [address] PCP - General Family Medicine 09/18/22 Gayla Martinez NP [address] [place] [address] Referring Physician Nurse Practitioner 09/18/22 [...] BE BASED ON THE PRIMARY CLINICAL RECORDS. [facility] [employer] [facility]. provides no warranty or guarantee of the accuracy or completeness of information in this document.
[2023-11-22 08:07] VITALS: BP 129/89; PULSE 114; TEMP 36.3; O2SAT 99
[2023-11-22 08:16] LABS: Glucometer 195 mg/dL (74-106)
[2023-11-22 08:45] VITALS: BP 140/82; PULSE 91; O2SAT 93
[2023-11-22 08:46] VITALS: BP 137/86; PULSE 97; O2SAT 98
--- NOTE | 2023-11-22 08:52 | W.PM.PROCNOT ---
Date of procedure: 11/22/23 Pre-op diagnosis: Pain due to lumbar stenosis with neurogenic claudication Post-op diagnosis: same as pre-op Procedure: Procedure: Bilateral L5-S1 transforaminal epidural steroid injection Medications: Bupivacaine 0.25% 2cc, lidocaine 2% 1cc, depomedrol 80mg The patient was seen and examined in the preoperative holding area.? Informed consent was obtained and placed on the chart.? Patient was brought to the medical procedure unit and placed in the prone position where a timeout was completed verifying the correct patient, procedure site, position, and planned special equipment using sterile aseptic technique.? Under direct fluoroscopic visualization a 25-gauge Quincke tipped spinal needle was advanced at level left L5-S1 to the designated neural foramen where contrast dye was injected to show adequate spread.? There was no evidence of vascular or adverse uptake.? Epidural spread was appreciated.? The above-mentioned injectate was then placed in a 1.5 mL aliquot preceded by negative aspiration.? The needle was removed. The same procedure, at the same level, was completed on the opposite side. ? Patient was taken to the postprocedural recovery area and monitored for an appropriate length of time before found suitable for discharge in the accompaniment of a responsible adult. Anesthesia: Local Surgeon: Lara Mar Pathology: none sent Condition: stable Disposition: no change
[2023-11-22] MEDS: 0.9 % SODIUM CHLORIDE 10 ML SYRINGE - SALINE FLUSH INJ (08:53)
[2023-11-22] MEDS: BUPIVACAINE HCL 0.25% PF 25 MG/10 ML VIAL INJ (08:53)
[2023-11-22] MEDS: IOHEXOL 240 MG/ML - 10 ML VIAL 36 MG INJ (08:54)
[2023-11-22] MEDS: LIDOCAINE HCL 2% 400 MG/20 ML MDV 3 ML INJ (08:54)
[2023-11-22] MEDS: TRIAMCINOLONE ACETONIDE 40 MG/ML VIAL 80 MG INJ (08:54)
== END 2023-11-22 08:56 | disposition home or self-care (01) ==
PROVIDERS: PCP Nurse Practitioner; Visit Provider Anesthesiology
DX: M48.062 Spinal stenosis, lumbar region with neurogenic claudication (principal)
CPT/HCPCS: 36415; 64483; 82948; J0665; J3301; Q9966

== ENCOUNTER 2023-12-02 08:27 | Outpatient (OUT) | payer OTHER, SELFPAY ==
--- OUTSIDE RECORDS SUMMARY | 2023-12-02 08:30 | XMS_ITS | CCD ---
Author Organization [facility] Care Team Providers Care Vat Packer Name Role Phone ALGHOEVELINEANI, MOHAMAD Attending Unavailable AICHHOLZ, CASE CONSULTANT GAYLA Primary Care Unavailable ALGHOTHANI, MOHAMAD Consulting Unavailable ALGHOTHANI, MOHAMAD Admitting Unavailable AICHHOLZ, CASE CONSULTANT GAYLA Primary Care Unavailable AICHHOLZ, CASE CONSULTANT GAYLA Admitting Unavailable AICHHOLZ, CASE CONSULTANT GAYLA Attending Unavailable AICHHOLZ, CASE CONSULTANT GAYLA Consulting Unavailable ALGHOTHANI, MOHAMAD Attending Unavailable AICHHOLZ, CASE CONSULTANT GAYLA Primary Care Unavailable ALGHOTHANI, MOHAMAD Consulting Unavailable ALGHOTHANI, MOHAMAD Admitting Unavailable ALGHOTHANI, MOHAMAD Attending Unavailable AICHHOLZ, CASE CONSULTANT GAYLA Primary Care Unavailable ALGHOTHANI, MOHAMAD Consulting Unavailable ALGHOTHANI, MOHAMAD Admitting Unavailable ALEX, INA Attending Unavailable ALEX, INA Admitting Unavailable ALEX, INA Consulting Unavailable AICHHOLZ, CASE CONSULTANT GAYLA Primary Care Unavailable AICHHOLZ, CASE CONSULTANT GAYLA Admitting Unavailable AICHHOLZ, CASE CONSULTANT GAYLA Attending Unavailable AICHHOLZ, CASE CONSULTANT GAYLA Consulting Unavailable AICHHOLZ, CASE CONSULTANT GAYLA Primary Care Unavailable AICHHOLZ, CASE CONSULTANT GAYLA Admitting Unavailable AICHHOLZ, CASE CONSULTANT GAYLA Attending Unavailable AICHHOLZ, CASE CONSULTANT GAYLA Consulting Unavailable AICHHOLZ, CASE CONSULTANT GAYLA Primary Care Unavailable ALEX, INA Attending Unavailable ALEX, INA Attending Unavailable DANTE HAND Attending Unavailable Aichholz REAL ESTATE SALES SUPERVISOR, Gayla Unavailable Pancho BOWIE, Jim Primary Care Provider [phone] SHIRAZ, GAYLA Attending Unavailable AICHHOLZ, GAYLA Attending Unavailable AICHHOLZ, GYALA Attending Unavailable Isabela BOWIE, Lara Amos Attending Unavailable Isabela BOWIE, Andjeanne Amos Attending Unavailable Isabela BOWIE, Andrius Amos Attending Unavailable Isabela BOWIE, Andrius Amos Attending Unavailable Isabela BOWIE, Lara Amos Attending Unavailable [facility] CARPET INSTALLER HELPER-[facility], Gayla Cook Primary Care Unava ilable Edilson PA-C, Dasha Pedro Attending Unavailab le Unavailable, Physician Primary Care Unavailab le Aichholz CARPET INSTALLER HELPER-CASE CONSULTANT, Gayla Cook Primary Care Unava ilable Edilson PA-C, Dasha Pedro Attending Unavailab le Tylor KAMARA MD, Delfino Holder navailable Edilson PA-C, Dasha Pedro Attending Unavailab le Unavailable, Physician Primary Care Unavailab le Edilson PA-C, Dasha Pedro Attending Unavailab le Aichholz CARPET INSTALLER HELPER-CASE CONSULTANT, Gayla Cook Primary Care Unava ilable Edilson PA-C, Dasha Pedro Attending Unavailab le Edilson PA-C, Dasha Pedro Attending Unavailab le Edilson PA-C, Dasha Pedro Attending Unavailab le Gigokul BOWIE, Lara Amos Attending Unavailable Allergies Allergy Classification Reported Allergen(s) Allergy Type Date of Onset Reaction(s) Facility (3 sources) pregabalin; Translations: [PREGABALIN] Drug Allergy [address] [place] [address] Repository (1 source) No Known Medication Allergies; Translations: [No Known Medication Allergies] Propensity to adverse reactions to drug (disorder) [facility] Repository Medications Current Medications Medication Drug Class(es) [...] oral solution (2 sources) alpha-Adrenergic Agonist, Uncompetitive U-sveoaw-R-aspartat e Receptor Antagonist, Sigma-1 Agonist Start: 04-07-2023 [...] Provider Letter ARCELIA Santos [address] [place] [address] Re: Stephan López Date of Visit: 10/26/2023 [...] Neurosurgery Office Visit Note Normal [facility] Neurosurgery Office/Clinic N oteon 10-26-2023 Neurosurgery Office/Clinic [...] or weakness. She continues to follow with [facility] pain management and has undergone previous L5-S1 transforaminal SVITLANA 05/10/2023 with approximately 2 to 3 weeks incomplete benefit. She has also undergone bilateral sacroiliac joint injections. She is utilizing meloxicam and tizanidine once daily for pain as well as tramadol on rare occasion. Recent imaging (provider interpretation): MRI lumbar 08/03/[address] [facility] reveals evidence of L3-5 posterior spinal [...] Lumbar flexion/extension x-rays 04/30/2023 at [facility] reveals straightening of lumbar lordosis. Evidence of L3-5 posterior spinal fusion with instrumentation and interbody fusion L4-5. No evidence of hardware fracture or pullout. Patient found to have degenerative disc disease L2-3 and L5-S1. There is slight retrolisthesis L2-3 as well as unchanged anterior listhesis at her surgerized L4-5 segment. No evidence of dynamic instability. CT lumbar spine 02/03/2023 at [facility] reveals evidence of L3-5 posterior spinal fusion [...] (more content not included)... Normal [facility] Neurosurgery Office/Clinic N zain 05-25-2023 Neurosurgery Office/Clinic [...] undergone an L5-S1 transforaminal SVITLANA 05/10/[address] [facility] pain management which did give her approximately 2 to 3 weeks of incomplete benefit. She is planned for bilateral sacroiliac joint injections in the near future. The patient has discontinued her LSO brace that continues her electromagnetic stimulator 8 hours/day. Recent imaging (provider interpretation): Lumbar flexion/extension x-rays 04/30/2023 at [facility] reveals straightening of lumbar lordosis. Evidence of L3-5 posterior spinal fusion with instrumentation and interbody fusion L4-5. No evidence of hardware fracture or pullout. Patient found to have degenerative disc disease L2-3 and L5-S1. There is slight retrolisthesis L2-3 as well as unchanged anterior listhesis at her surgerized L4-5 segment. No evidence of dynamic instability. CT lumbar spine 02/03/2023 at [facility] reveals evidence of L3-5 posterior spinal fusion [...] prior imaging. CT lumbar spine 10/14/2022 at [facility] reveals evidence of L3-5 decompression and posterior [...] which c (more content not included)... Normal [facility] INFLUENZA A AND B AGon 0 04-08-2023 [...] function. Can continue lisinopril. Thank you Normal [facility] Telephoneon 03-19-2023 Telephone [id number] James López flavio Ceballos 1960 F Date Provider Department Center 03/19/2023 DANTE BAIG Rufus Gold Family History Problem Relation Age of Onset Other Mother Heart attack Father Other Father Other Father Other Maternal Grandmother Family Status - Relation Status Age at Mother Father Maternal Grandmother Normal [facility] Neurosurgery Office/Clinic N oteon 02-08-2023 Neurosurgery [...] and tizanidine as provided by pain management ([facility] pain management) only as needed and has not yet returned to NSAID medication. She continues to utilize nicotine and understands the deleterious effects of nicotine on her overall health and bony arthrodesis. Recent imaging (provider interpretation): CT lumbar spine 02/03/2023 at [facility] reveals evidence of L3-5 posterior spinal fusion [...] prior imaging. CT lumbar spine 10/14/2022 at [facility] reveals evidence of L3-5 decompression and posterior [...] (more content not included)... Normal [facility] Office Visiton 01-19-2023 Follow-up visit [id number] James López 1960 F Date Provider Department Center 01/19/2023 DANTE BAIG ROXY [facility] Family History Problem Relation Age of Onset Other Mother Heart attack Father Other Father Other Father Other Maternal Grandmother Family Status - Relation Status Age at Mother Father Maternal Grandmother Level of Service:82049 [place] OFFICE/OUTPATIENT ESTABLISHED LOW MDM 20-29 MIN Reason for Visit and Comments: Follow-up [256412] Hypertension [028671] Normal [facility] Neurosurgery Office/Clinic N oteon 12-22-2022 [...] 2 times per week. She follows with [facility] pain management which is a transition from [facility] pain management group. She continues to [...] prior imaging. CT lumbar spine 10/14/2022 at [facility] reveals evidence of L3-5 decompression and posterior [...] normal respiratory effort She presents in [facility] lock brace with proper fit and alignment. This was removed at the time of today's visit for incision evaluation. Lumbosacral incision appears well-healed and without erythema, edema, drainage or warmth. She notes mild tenderness (more content not included)... Normal [facility] Neurosurgery Office/Clinic N oteon 11-26-2022 Neurosurgery Office/Clinic [...] she recently transferred pain management care from [facility] to [facility]. Per the patient, they eventually would like her to initiate hot water physical therapy though only after receiving clearance from this office. Recent imaging (provider interpretation): CT lumbar spine 10/14/2022 at [facility] reveals evidence of L3-5 decompression and posterior [...] respiratory effort She presents in [facility] brace with proper fit and alignment. [...] (more content not included)... Normal [facility] Office Visiton 07-03-2022 Follow-up visit [id number] James López 1960 F Date Provider Department Center 07/03/2022 Dory-INA JOHNSON Family History Problem Relation Age of Onset Other Mother Heart attack Father Other Father Other Father Other Maternal Grandmother Family Status - Relation Status Age at Mother Father Maternal Grandmother Level of Service:85192 [place] OFFICE/OUTPATIENT ESTABLISHED LOW MDM 20-29 MIN Reason for Visit and Comments: Hypertension [951447] pericardial effusion [Other] Normal [facility] PROF CHEM 8 (BAS METB)on Anion gap [Moles/Vol] 12.9 mmol/L Normal [facility] Comment on above: Performed By: #### C BC #### [facility] [address] [address] [address] Yariel Herrera Calcium [Mass/Vol] 9.0 mg/dL Normal 8.5-10.1 [facility] Comment on above: Performed By: #### C BC #### [facility] [address] [address] [address] Yariel Herrera Chloride [Moles/Vol] 106 mmol/L Normal 98-107 [facility] Comment on above: Performed By: #### C BC #### [facility] [address] [place] [address] Dr. Yariel Herrera CO2 [Moles/Vol] 28.3 mmol/L Normal 21.0-32.0 [facility] Comment on above: Performed By: #### C BC #### [facility] [address] [place] [address] Dr. Yariel Herrera Creatinine [Mass/Vol] 0.81 mg/dL Normal 0.55-1.02 [facility] Comment on above: Performed By: #### C BC #### [facility] [address] [place] [address] Dr. Yariel Herrera EGFR-AF CITIZEN [place] >60 Normal >=60 [facility] Comment on above: Performed By: #### C BC #### [facility] [address] [place] [address] Dr. Yariel Herrera EGFR-NON AF CITIZEN OF [place] >60 Normal >=60 [facility] Comment on above: Performed By: #### C BC #### [facility] [address] [place] [address] Dr. Yariel Herrera Glucose [Mass/Vol] 103 mg/dL Normal 74-106 [facility] Comment on above: Performed By: #### C BC #### [facility] [address] [place] [address] Dr. Yariel Herrera Potassium [Moles/Vol] 4.2 mmol/L Normal 3.5-5.1 [facility] Comment on above: Performed By: #### C BC #### [facility] [address] [address] [address] Yariel Herrera Sodium [Moles/Vol] 143 mmol/L Normal 136-145 [facility] Comment on above: Performed By: #### C BC #### [facility] [address] [address] [address] Yariel Herrera Urea nitrogen [Mass/Vol] 9.0 mg/dL Normal 7.0-18.0 [facility] Comment on above: Performed By: #### C BC #### [facility] [address] [address] [address] Yariel Herrera Urea nitrogen/Creatinine [Mass ratio] 11.1 mg/mg Normal [facility] Comment on above: Performed By: #### C BC #### [facility] [address] [address] [address] Yariel Herrera 37on 06-10-2022 37 Start lisinopril 2.5 mg daily, Have labs/blood checked in 1 week for kidney function Monitor b/p at home 1-2 times/day and record on a log- bring with her to next visit. If you notice a dry, persistent cough- stop lisinopril and call office please. Normal [facility] Office Visiton 06-10-2022 Follow-up visit [id number] James López 1960 F Date Provider Department Center 06/10/2022 INA JONES [facility] Family History Problem Relation Age of Onset Other Mother Heart attack Father Other Father Other Father Other Maternal Grandmother Family Status - Relation Status Age at Mother Father Maternal Grandmother Level of Service:20502 [place] OFFICE/OUTPATIENT ESTABLISHED MOD MDM 30-39 MIN [facility] ECHOCARDIO M/2D COMPLETEon 0 05-08-2022 ECHOCARDIO M/2D COMPLETE Patient: STEPHAN LÓPEZ Exam Date: 05/08/2022 : 1960 Gender:F Ordering : CARL WILLIS Admission #: [id number] Family : GAURAV MARTINEZ [facility] Order #: [id number] CLICK HERE TO VIEW EXAM ECHOCARDIOGRAM REPORT [...] Elie Garzon M.D. on 05/08/2022 at 14:20 [facility] ABHINAV by IFAon 01-08-2022 Antinuclear Antibodies, IFA Negative Normal [facility] Comment on above: Result Comment: Nega tive <1:80 Borderline 1:80 Positive >1:80 ICAP nomenclature: AC-0 For more information about Hep-2 cell patterns use ANApatterns.org, the official website for the International Consensus on Antinuclear Antibody (ABHINAV) Patterns (ICAP). Performed By: #### A NAIFA #### [facility] [address] [place] [address] Dr. Yariel Herrera CBC AUTO DIFFon 01-05-2022 BASO # 0.1 103/ul Normal 0.0-0.1 [facility] Comment on above: Performed By: #### C BC #### [facility] [address] [place] [address] Dr. Yariel Herrera Basophils/100 WBC (Bld) 0.6 % Normal 0.2-2.0 [facility] Comment on above: Performed By: #### C BC #### [facility] [address] [place] [address] Dr. Yariel Herrera EO # 0.2 103/ul Normal 0.0-0.[address] [facility] Comment on above: Performed By: #### C BC #### [facility] [address] [place] [address] Dr. Yariel Herrera Eosinophils/100 WBC (Bld) 1.4 % Normal 0.9-7.0 [facility] Comment on above: Performed By: #### C BC #### [facility] [address] [place] [address] Dr. Yariel Herrera Erythrocyte distribution width (RBC) [Ratio] 13.6 % Normal 11.0-15.[address] [facility] Comment on above: Performed By: #### C BC #### [facility] [address] [place] [address] Dr. Yariel Herrera Hematocrit (Bld) [Volume fraction] 46.6 % Normal 36.0-48.0 [facility] Comment on above: Performed By: #### C BC #### [facility] [address] [place] [address] Dr. Yariel Herrera Hemoglobin (Bld) [Mass/Vol] 15.4 g/dL Normal 12.0-16.0 [facility] Comment on above: Performed By: #### C BC #### [facility] [address] [place] [address] Dr. Yariel Herrera IG # 0.03 10e3/ul Normal 0.00-0.03 [facility] Comment on above: Performed By: #### C BC #### [facility] [address] [place] [address] Dr. Yariel Herrera IG % 0.2 % Normal 0.0-0.5 [facility] Comment on above: Performed By: #### C BC #### [facility] [address] [place] [address] Dr. Yariel Herrera LYMPH # 4.2 103/ul Critically high 1.2-3.8 [facility] Comment on above: Performed By: #### C BC #### [facility] [address] [place] [address] Dr. Yariel Herrera Lymphocytes/100 WBC (Bld) 31.3 % Normal 20.5-60.0 [facility] Comment on above: Performed By: #### C BC #### [facility] [address] [place] [address] Dr. Yariel Herrera MANUAL DIFF REQ NO Normal [facility] Comment on above: Performed By: #### C BC #### [facility] [address] [place] [address] Dr. Yariel Herrera MCH (RBC) [Entitic mass] 31.6 pg Normal 26.7-34.0 [facility] Comment on above: Performed By: #### C BC #### [facility] [address] [place] [address] Dr. Yariel Herrera MCHC (RBC) [Mass/Vol] 33.0 g/dL Normal 29.9-35.2 [facility] Comment on above: Performed By: #### C BC #### [facility] [address] [place] [address] Dr. Yariel Herrera MCV (RBC) [Entitic vol] 95.7 fL Normal 81.0-99.0 [facility] Comment on above: Performed By: #### C BC #### [facility] [address] [place] [address] Dr. Yariel Herrera MONO # 0.9 103/ul Critically high 0.3-0.8 [facility] Comment on above: Performed By: #### C BC #### [facility] [address] [place] [address] Dr. Yariel Herrera Monocytes/100 WBC (Bld) 6.8 % Normal 1.7-12.0 [facility] Comment on above: Performed By: #### C BC #### [facility] [address] [place] [address] Dr. Yariel Herrera NEUT # 8.0 103/ul Critically high 1.4-6.5 [facility] Comment on above: Performed By: #### C BC #### [facility] [address] [place] [address] Dr. Yariel Herrera Neutrophils/100 WBC (Bld) 59.7 % Normal 43.0-75.0 [facility] Comment on above: Performed By: #### C BC #### [facility] [address] [place] [address] Dr. Yariel Herrera Platelet mean volume (Bld) [Entitic vol] 10.7 fL Normal 9.5-13.[address] [facility] Comment on above: Performed By: #### C BC #### [facility] [address] [place] [address] Dr. Yariel Herrera PLT 340 103/ul Normal 150-[address] [facility] Comment on above: Performed By: #### C BC #### [facility] [address] [place] [address] Dr. Yariel Herrera RBC 4.87 106/ul Normal 4.20-5.[address] [facility] Comment on above: Performed By: #### C BC #### [facility] [address] [place] [address] Dr. Yariel Herrera WBC 13.4 103/ul Critically high 4.0-11.0 [facility] Comment on above: Performed By: #### C BC #### [facility] [address] [place] [address] Dr. Yariel Herrera FREE T4on 01-05-2022 Free T4 [Mass/Vol] 1.06 ng/dL Normal 0.76-1.46 [facility] Comment on above: Performed By: #### C BC #### [facility] [address] [place] [address] Dr. Yariel Herrera PROF 14(COMP METB)on 022 Albumin [Mass/Vol] 3.9 g/dL Normal 3.4-5.0 [facility] Comment on above: Performed By: #### C MP, TSH #### [facility] [address] [place] [address] Dr. Yariel Herrera Albumin/Globulin [Mass ratio] 1.1 {ratio} Normal [facility] Comment on above: Performed By: #### C MP, TSH #### [facility] [address] [place] [address] Dr. Yariel Herrera ALP [Catalytic activity/Vol] 99 U/L Normal 46-116 [facility] Comment on above: Performed By: #### C MP, TSH #### [facility] [address] [place] [address] Dr. Yariel Herrera ALT [Catalytic activity/Vol] 17 U/L Normal 14-[address] [facility] Comment on above: Performed By: #### C MP, TSH #### [facility] [address] [place] [address] Dr. Yariel Herrera Anion gap [Moles/Vol] 10.1 mmol/L Normal [facility] Comment on above: Performed By: #### C MP, TSH #### [facility] [address] [place] [address] Dr. Yariel Herrera AST [Catalytic activity/Vol] 14 U/L Critically low 15-37 [facility] Comment on above: Performed By: #### C MP, TSH #### [facility] [address] [place] [address] Dr. Yariel Herrera Bilirubin [Mass/Vol] 0.3 mg/dL Normal 0.2-1.0 [facility] Comment on above: Performed By: #### C MP, TSH #### [facility] [address] [place] [address] Dr. Yariel Herrera Calcium [Mass/Vol] 9.4 mg/dL Normal 8.5-10.1 [facility] Comment on above: Performed By: #### C MP, TSH #### [facility] [address] [place] [address] Dr. Yariel Herrera Chloride [Moles/Vol] 103 mmol/L Normal 98-107 [facility] Comment on above: Performed By: #### C MP, TSH #### [facility] [address] [place] [address] Dr. Yariel Herrera CO2 [Moles/Vol] 30.9 mmol/L Normal 21.0-32.0 [facility] Comment on above: Performed By: #### C MP, TSH #### [facility] [address] [place] [address] Dr. Yariel Herrera Creatinine [Mass/Vol] 0.88 mg/dL Normal 0.55-1.02 [facility] Comment on above: Performed By: #### C MP, TSH #### [facility] [address] [place] [address] Dr. Yariel Herrera EGFR-AF CITIZEN OF [place] >60 Normal >=60 [facility] Comment on above: Performed By: #### C MP, TSH #### [facility] [address] [place] [address] Dr. Yariel Herrera EGFR-NON AF CITIZEN OF [place] >60 Normal >=60 [facility] Comment on above: Performed By: #### C MP, TSH #### [facility] [address] [place] [address] Dr. Yariel Herrera Globulin (S) [Mass/Vol] 3.5 g/dL Normal [facility] Comment on above: Performed By: #### C MP, TSH #### [facility] [address] [place] [address] Dr. Yariel Herrera Glucose [Mass/Vol] 117 mg/dL Critically high 74-106 T [facility] Comment on above: Performed By: #### C MP, TSH #### [facility] [address] [address] [address] Yariel Herrera Potassium [Moles/Vol] 4.0 mmol/L Normal 3.5-5.1 [facility] Comment on above: Performed By: #### C MP, TSH #### [facility] [address] [place] [address] Dr. Yariel Herrera Protein [Mass/Vol] 7.4 g/dL Normal 6.4-8.2 [facility] Comment on above: Performed By: #### C MP, TSH #### [facility] [address] [place] [address] Dr. Yariel Herrera Sodium [Moles/Vol] 140 mmol/L Normal 136-145 [facility] Comment on above: Performed By: #### C MP, TSH #### [facility] [address] [place] [address] Dr. Yariel Herrera Urea nitrogen [Mass/Vol] 18.0 mg/dL Normal 7.0-18.0 [facility] Comment on above: Performed By: #### C MP, TSH #### [facility] [address] [place] [address] Dr. Yariel Herrera Urea nitrogen/Creatinine [Mass ratio] 20.5 mg/mg Normal [facility] Comment on above: Performed By: #### C MP, TSH #### [facility] [address] [place] [address] Dr. Yariel Herrera TSHon 01-05-2022 TSH 1.380 uIU/mL Normal 0.358-3.740 [facility] Comment on above: Performed By: #### C MP, TSH #### [facility] [address] [place] [address] Dr. Yariel Herrera GLYCOHEMOGLOBIN A1Con 2021 ADA RECOMMENDATION SEE BELOW Normal [facility] Comment on above: Result Comment: ADA RECOMMENDED LIMIT 4.0 - 6.0 ADA THERAPEUTIC TARGET < 7.0 ACTION SUGGESTED > 7.0 Performed By: #### A 1C #### [facility] [address] [place], [place] [address] Dr. Yariel Herrera Glucose [Mass/Vol] 137 mg/dL Normal [facility] Comment on above: Performed By: #### A 1C #### [facility] [facility] [address], [place] [address] Dr. Yariel Herrera HbA1c (Bld) [Mass fraction] 6.4 % Critically high 4.5-6.2 [facility] Comment on above: Performed By: #### A 1C #### [facility] [address], [place] [address] Dr. Yariel Herrera ECHOCARDIO M/2D COMPLETEon 0 10-16-2021 ECHOCARDIO M/2D COMPLETE Patient: STEPHAN LÓPEZ Exam Date: 10/16/2021 : 1960 Gender:F Ordering : CARL WILLIS Admission #: [id number] Family : Order #: [id number] CLICK HERE TO VIEW EXAM ECHOCARDIOGRAM REPORT [...] Melvin M.D. on 10/16/2021 at 17:12 Normal [facility] ECHOCARDIO M/2D COMPLETEon 0 09-16-2021 ECHOCARDIO M/2D COMPLETE Patient: STEPHAN LÓPEZ Exam Date: 09/16/2021 : 1960 Gender:F Ordering : GAURAV GAYLA SHIRAZ [facility] Admission #: [id number] Family : Order #: [id number] CLICK HERE TO VIEW EXAM ECHOCARDIOGRAM REPORT [...] M.D. on 09/17/2021 at 13:02 Normal [facility] CBC AUTO DIFFon 08-04-2021 BASO # 0.1 103/ul Normal 0.0-0.1 [facility] Comment on above: Performed By: #### C BC #### [facility] [address] [place] [address] [address] Yariel Herrera Basophils/100 WBC (Bld) 0.6 % Normal 0.2-2.0 [facility] Comment on above: Performed By: #### C BC #### [facility] [address] [place] [address] [address] Yariel Herrera EO # 0.1 103/ul Normal 0.0-0.7 [facility] Comment on above: Performed By: #### C BC #### [facility] [address] [place] [address] [address] Yariel Herrera Eosinophils/100 WBC (Bld) 0.9 % Normal 0.9-7.0 [facility] Comment on above: Performed By: #### C BC #### [facility] [address] [place] [address] [address] Yariel Herrera Erythrocyte distribution width (RBC) [Ratio] 13.8 % Normal 11.0-15.0 [facility] Comment on above: Performed By: #### C BC #### [facility] [address] [address] [address] Yariel Herrera Hematocrit (Bld) [Volume fraction] 47.1 % Normal 36.0-48.0 [facility] Comment on above: Performed By: #### C BC #### [facility] [address] [address] [address] Yariel Herrera Hemoglobin (Bld) [Mass/Vol] 15.2 g/dL Normal 12.0-16.0 [facility] Comment on above: Performed By: #### C BC #### [facility] [address] [address] [address] Yariel Herrera IG # 0.04 10e3/ul Critically high 0.00-0.03 [facility] Comment on above: Performed By: #### C BC #### [facility] [address] [place] [address] Dr. Yariel Herrera IG % 0.3 % Normal 0.0-0.5 [facility] Comment on above: Performed By: #### C BC #### [facility] [address] [place] [address] Dr. Yariel Herrera LYMPH # 3.7 103/ul Normal 1.2-3.8 [facility] Comment on above: Performed By: #### C BC #### [facility] [address] [place] [address] Dr. Yariel Herrera Lymphocytes/100 WBC (Bld) 30.6 % Normal 20.5-60.0 [facility] Comment on above: Performed By: #### C BC #### [facility] [address] [place] [address] Dr. Yariel Herrera MANUAL DIFF REQ NO Normal [facility] Comment on above: Performed By: #### C BC #### [facility] [address] [place] [address] Dr. Yariel Herrera MCH (RBC) [Entitic mass] 32.0 pg Normal 26.7-34.0 [facility] Comment on above: Performed By: #### C BC #### [facility] [address] [place] [address] Dr. Yariel Herrera MCHC (RBC) [Mass/Vol] 32.3 g/dL Normal 29.9-35.2 [facility] Comment on above: Performed By: #### C BC #### [facility] [address] [place] [address] Dr. Yariel Herrera MCV (RBC) [Entitic vol] 99.2 fL Critically high 81.0-99.0 [facility] Comment on above: Performed By: #### C BC #### [facility] [address] [place] [address] Dr. Yariel Herrera MONO # 0.9 103/ul Critically high 0.3-0.8 [facility] Comment on above: Performed By: #### C BC #### [facility] [address] [address] [address] Yariel Herrera Monocytes/100 WBC (Bld) 7.4 % Normal 1.7-12.0 [facility] Comment on above: Performed By: #### C BC #### [facility] [address] [address] [address] Yariel Herrera NEUT # 7.3 103/ul Critically high 1.4-6.5 [facility] [place] [facility] Comment on above: Performed By: #### C BC #### [facility] [address] [address] [address] Yariel Herrera Neutrophils/100 WBC (Bld) 60.2 % Normal 43.0-75.0 [facility] Comment on above: Performed By: #### C BC #### [facility] [address] [place] [address] Dr. Yariel Herrera Platelet mean volume (Bld) [Entitic vol] 11.7 fL Normal 9.5-13.[address] [facility] Comment on above: Performed By: #### C BC #### [facility] [address] [place] [address] Dr. Yariel Herrera PLT 330 103/ul Normal 150-[address] [facility] Comment on above: Performed By: #### C BC #### [facility] [address] [place] [address] Dr. Yariel Herrera RBC 4.75 106/ul Normal 4.20-5.[address] [facility] Comment on above: Performed By: #### C BC #### [facility] [address] [place] [address] Dr. Yariel Herrera WBC 12.1 103/ul Critically high 4.0-11.0 [facility] Comment on above: Performed By: #### C BC #### [facility] [address] [place] [address] Dr. Yariel Herrera FREE T3on 08-04-2021 FREE T3 2.46 pg/mlL Normal 2.18-3.[address] [facility] Comment on above: Performed By: #### C BC #### [facility] [address] [place] [address] Dr. Yariel Herrera FREE T4on 08-04-2021 Free T4 [Mass/Vol] 1.08 ng/dL Normal 0.76-1.46 [facility] Comment on above: Performed By: #### F T4 #### [facility] [address] [place] [address] Dr. Yariel Herrera PROF 14(COMP METB)on 022 Albumin [Mass/Vol] 4.2 g/dL Normal 3.4-5.0 [facility] Comment on above: Performed By: #### C BC #### [facility] [address] [place] [address] Dr. Yariel Herrera Albumin/Globulin [Mass ratio] 1.2 {ratio} Normal [facility] Comment on above: Performed By: #### C BC #### [facility] [address] [place] [address] Dr. Yariel Herrera ALP [Catalytic activity/Vol] 87 U/L Normal 46-116 [facility] Comment on above: Performed By: #### C BC #### [facility] [address] [place] [address] Dr. Yariel Herrera ALT [Catalytic activity/Vol] 25 U/L Normal 14-59 [facility] Comment on above: Performed By: #### C BC #### [facility] [address] [place] [address] Dr. Yariel Herrera Anion gap [Moles/Vol] 13.3 mmol/L Normal [facility] Comment on above: Performed By: #### C BC #### [facility] [address] [place] [address] Dr. Yariel Herrera AST [Catalytic activity/Vol] 15 U/L Normal 15-[address] [facility] Comment on above: Performed By: #### C BC #### [facility] [address] [place] [address] Dr. Yariel Herrera Bilirubin [Mass/Vol] 0.5 mg/dL Normal 0.2-1.0 [facility] Comment on above: Performed By: #### C BC #### [facility] [address] [place] [address] [address] Yariel Herrera Calcium [Mass/Vol] 9.6 mg/dL Normal 8.5-10.1 [facility] Comment on above: Performed By: #### C BC #### [facility] [address] [address] [address] Yariel Herrera Chloride [Moles/Vol] 103 mmol/L Normal 98-107 [facility] Comment on above: Performed By: #### C BC #### [facility] [address] [place] [address] Dr. Yariel Herrera CO2 [Moles/Vol] 28.9 mmol/L Normal 21.0-32.0 [facility] Comment on above: Performed By: #### C BC #### [facility] [address] [place] [address] Dr. Yariel Herrera Creatinine [Mass/Vol] 0.84 mg/dL Normal 0.55-1.02 [facility] Comment on above: Performed By: #### C BC #### [facility] [address] [place] [address] Dr. Yariel Herrera EGFR-AF CITIZEN OF [place] >60 Normal >=60 [facility] Comment on above: Performed By: #### C BC #### [facility] [address] [place] [address] Dr. Yariel Herrera EGFR-NON AF CITIZEN OF [place] >60 Normal >=60 [facility] Comment on above: Performed By: #### C BC #### [facility] [address] [place] [address] Dr. Yariel Herrera Globulin (S) [Mass/Vol] 3.4 g/dL Normal [facility] Comment on above: Performed By: #### C BC #### [facility] [address] [place] [address] Dr. Yariel Herrera Glucose [Mass/Vol] 111 mg/dL Critically high 74-106 T [facility] Comment on above: Performed By: #### C BC #### [facility] [address] [place] [address] Dr. Yariel Herrera Potassium [Moles/Vol] 4.2 mmol/L Normal 3.5-5.1 [facility] Comment on above: Performed By: #### C BC #### [facility] [address] [place] [address] Dr. Yariel Herrera Protein [Mass/Vol] 7.6 g/dL Normal 6.4-8.2 [facility] Comment on above: Performed By: #### C BC #### [facility] [address] [place] [address] Dr. Yariel Herrera Sodium [Moles/Vol] 141 mmol/L Normal 136-145 [facility] Comment on above: Performed By: #### C BC #### [facility] [address] [place] [address] Dr. Yariel Herrera Urea nitrogen [Mass/Vol] 15.0 mg/dL Normal 7.0-18.0 [facility] Comment on above: Performed By: #### C BC #### [facility] [address] [place] [address] Dr. Yariel Herrera Urea nitrogen/Creatinine [Mass ratio] 17.9 mg/mg Normal [facility] Comment on above: Performed By: #### C BC #### [facility] [address] [place] [address] Dr. Yariel Herrera TSHon 08-04-2021 TSH 1.073 uIU/mL Normal 0.358-3.740 [facility] Comment on above: Performed By: #### C BC #### [facility] [address] [place] [address] Dr. Yariel Herrera TSH RANGE SEE BELOW Normal [facility] Comment on above: Result Comment: <0.3 4 UIU/ml HYPERTHYROID 0.34-5.60 UIU/ml EUTHYROID >5.60 UIU/ml HYPOTHYROID Performed By: #### C BC #### [facility] [address] [place] [address] Dr. Yariel Herrera Encounters Encounter Date Encounter Type Care Provider Facility Start: 11-22-2023 End: 11-22-2023 ambulatory Lara Mar MD Facility:[facility] Start: 10-26-2023 ambulatory Dasha Waggoner PA-C F acility:[facility] Start: 10-26-2023 End: 10-26-2023 ambulatory Gayla Martinez CARPET INSTALLER HELPER-CASE CONSULTANT Facility:[facility] Start: 09-27-2023 End: 09-27-2023 ambulatory Lara Mar MD [facility]: [facility] Start: 08-30-2023 End: 08-30-2023 ambulatory Lara Mar MD [facility]: [facility] Start: 07-27-2023 End: 07-27-2023 ambulatory GAYLA MARTINEZ Not Available Start: 07-05-2023 End: 07-05-2023 ambulatory [facility] Start: 06-14-2023 End: 06-14-2023 ambulatory Lara Mar MD Facility:[facility] Start: 05-25-2023 End: 05-25-2023 ambulatory Dasha Waggoner PA-C [facility] Start: 05-10-2023 End: 05-10-2023 ambulatory Lara Mar MD Facility:[facility] Start: 05-04-2023 End: 05-04-2023 ambulatory Delfino Snider III, MD Facility:[facility] Start: 04-26-2023 End: 04-26-2023 ambulatory GAYLA MARTINEZ Not Available Start: 04-08-2023 Clinisync Result Encounter Gayla Martinez REAL ESTATE SALES SUPERVISOR Work Phone: [facility] Unsolicited Start: 04-08-2023 Clinisync Result Encounter Gayla Martinez REAL ESTATE SALES SUPERVISOR Work Phone: [facility] Unsolicited Start: 04-07-2023 Refill Gayla Martinez REAL ESTATE SALES SUPERVISOR Work Phone: [facility] Comment on above: COPD with exacerbati on (CMS/HCC) (Primary Dx) Start: 02-08-2023 End: 02-08-2023 ambulatory Dasha HODGES-C [facility] Start: 01-25-2023 End: 01-25-2023 ambulatory GAYLA MARTINEZ Not Available Start: 01-19-2023 End: 01-19-2023 ambulatory DANTE HAND [facility] Start: 12-22-2022 End: 12-22-2022 ambulatory Dasha HODGES-C Facility:[facility] Start: 11-26-2022 End: 11-26-2022 ambulatory Dasha HODGES-C Facility:[facility] Start: 07-03-2022 End: 07-03-2022 ambulatory [place] Start: 06-17-2022 End: 06-18-2022 ambulatory INA LINKS Facility:[facility] Start: 06-10-2022 End: 06-10-2022 ambulatory [place] Start: 05-08-2022 End: 05-09-2022 ambulatory MOHAMAD ALGHOTHANI Facility:[facility] Start: 01-05-2022 End: 01-06-2022 ambulatory MOHAMAD ALGHOTHANI Facility:[facility] Start: 11-05-2021 End: 11-06-2021 ambulatory CASE CONSULTANT GAYLA SHIRAZ Facility:[facility] Start: 10-16-2021 End: 10-17-2021 ambulatory MOHAMAD ALGHOTHANI Facility:[facility] Start: 09-16-2021 End: 09-17-2021 ambulatory CASE CONSULTANT GAYLA SHIRAZ Facility:[facility] Start: 08-04-2021 End: 08-05-2021 ambulatory CASE CONSULTANT GAYLA SHIRAZ Facility:[facility] Procedures Date Procedure Procedure Detail Performing Clinician Start: 04-08-2023 [facility] INFLUENZA A AND B AG Gayla Martinez [employer] ESTATE SALES SUPERVISOR Work Phone: Start: 12-03-2022 Mammography Gayla jerome REAL ESTATE SALES SUPERVISOR Work Phone: Start: 04-20-2013 Colonoscopy Gayla jerome REAL ESTATE SALES SUPERVISOR Work Phone: Plan of Treatment Date Care Activity Detail Author Start: 09-08-2026 Screening for malign ant neoplasm of colon [facility] Start: 12-04-2023 Screening for malign ant neoplasm of breast Mammogram [facility] Start: 08-22-2023 Influenza vaccination Influenza Vacc ine (#1) [facility] Comment on above: Postponed from 10/23 (Other Medical Reasons) Start: 07-24-2023 Screening for malign ant neoplasm of cervix Cervical Cancer Screening [facility] Comment on above: Postponed from 02/03 (Other Medical Reasons) Start: 05-30-2023 Urine screening for protein Diabetes: Urine Protein Screening [facility] Start: 04-26-2023 Glaucoma screening Diabetes: R etinopathy Screening [facility] Comment on above: Postponed from 02/03 (Other Medical Reasons) Start: 04-26-2023 End: 04-26-2023 Patient encounter procedure 04/26/2023 9:00 AM EST Office Visit [facility] [address] [place] [address] Gayla Martinez NP [address] [place] [id number] [facility] Start: 03-05-2023 Hemoglobin [...] [employer]ALTH[employer] E MEDICAID [employer] MEDICAID [place] [id number] 2022-Present [address] [place] [address] [id number] 1960 Unknown [id number] 2.16.840.1.699160.3.579.2. 593 1960 Unknown [id number] 2.16.840.1.094464.3.579.2. 593 1960 Unknown [id number] 2.16.840.1.136681.3.579.2. 593 1960 Unknown [id number] 2.16.840.1.922146.3.579.2. 593 1960 Unknown [id number] 2.16.840.1.600901.3.579.2. 593 1960 Unknown [id number] 2.16.840.1.240113.3.579.2. 593 1960 Unknown [id number] 2.16.840.1.552300.3.579.2. 593 1960 Unknown [id number] 2.16.840.1.662545.3.579.2. 1259 1960 Unknown [id number] 2.16.840.1.640052.3.579.2. 1259 1960 Unknown [id number] 2.16.840.1.990993.3.579.2. 1259 1960 Unknown [id number] 2.16.840.1.216859.3.579.2. 196 1960 Unknown [id number] 2.16.840.1.956996.3.579.2. 196 1960 Unknown [id number] 2.16.840.1.094317.3.579.2. 196 1960 Unknown [id number] 2.16.840.1.201762.3.579.2. 196 1960 Unknown [id number] 2.16.840.1.826482.3.579.2. 196 1960 Unknown [id number] 2.16.840.1.054438.3.579.2. 196 1960 Unknown [id number] 2.16.840.1.872660.3.579.2. 196 1960 Unknown [id number] 2.16.840.1.672362.3.579.2. 1960 Unknown [id number] 2.16.840.1.397432.3.579.2. 196 1960 Unknown [id number] 2.16.840.1.722263.3.579.2. 1960 Unknown [id number] 2.16.840.1.334016.3.579.2. 1960 Unknown [id number] 2.16.840.1.549518.3.579.2. 1960 Unknown [id number] 2.16.840.1.234463.3.579.2. 196 1959 Unknown [id number] 1959 Unknown [id number] Social History Date Type Detail Facility Start: 01-25-2023 Tobacco smoking stat [facility] Smokes tobacco daily [facility] History of tobacco use Cigarette Smoker [facility] Start: 01-25-2023 Cigarettes smoked cu rrent (pack per day) - Reported 0.5 [facility] Start: 01-25-2023 Tobacco use and exposure Smoke less tobacco non-user [facility] Start: 02-08-2023 Alcohol intake Lifetime non-d mariaa (finding) [facility] Start: 01-25-2023 Tobacco use panel [facility] Start: 1960 Sex Assigned At Not on file N [facility] Medical Equipment Procedure Code Equipment Code Equipment Original Text Equi pment Identifier Dates 1 Device Daily as needed. [id number] Clinical Notes 06-10-2022 to 01-19-2023 Note Date & Type Note Facility 01-19-2023 Note Cardiovascular Medic ine [facility] SUBJECTIVE Chief Complaint Patient presents with Follow-up Hypertension Stephan López is a 62 y.o. female here for follow-up. HPI PMHx: HTN, pericardial effusion, HLD She denies any cardiac concerns today. She has back problems. She is 5 months s/p surgery and she is still recovering. She is following with pain management at [facility]. She is not currently checking her BP [...] needed. Dante Hand NP [facility] 01-19-2023 Note Patient here for [...] All other systems reviewed and are negative. [facility] 07-03-2022 Note [facility] 07-03-2022 Note Hypertension is well controlled 120/84 Reviewed b/p log and overall her b/p is controlled with some outliers of high and low b/p. Renal function was normal s/p starting lisinopril [facility] 07-03-2022 Note Patient here for [...] All other systems reviewed and are negative. [facility] 07-03-2022 Note [facility] CARDIOLOGY PROGR [...] effusion No concerning symptoms RTC 6 months [facility] 06-10-2022 Note F/U with PCP [facility] 06-10-2022 Note Hypertension is 145/ 99 uncontrolled Will start lisinopril 2.5 mg daily BMP in 1 week Start monitoring b/p at home and record on a log, RTC 1 month D/W pt about side effects of 1st dose low b/p and dry persistent cough [facility] 06-10-2022 Note Recent echo with not ed trivial effusion. No recent illness or any concerning symptoms [facility] 06-10-2022 Note [facility] CARDIOLOGY PROGR [...] with PCP RTC 1 month for re-evaluation [facility] 06-10-2022 Note Patient here for 6 m o follow up pericardial effusion. Had echo in April 2022. Denies chest pain and SOB. Review of Systems Musculoskeletal: Positive for back pain. All other systems reviewed and are negative. [facility] Evaluation note Diagnosis COPD with exacerbation [...] and content) DATE CREATED AUTHOR 06/21/2022 [facility] DATE CREATED AUTHOR AUTHOR'S ORGANIZ ATION 03/20/2023 [facility] DATE CREATED AUTHOR AUTHOR'S ORGANIZ ATION 07/28/2023 [facility] DATE CREATED AUTHOR AUTHOR'S ORGANIZ ATION 11/26/2023 [facility] Care Teams (unrecognized sec tion and content) Vat Packer Relationship Specialty Start Date End Date Jim Deleon MD [address] [place] [id number] PCP - General Family Medicine 09/18/22 Gayla Martinez NP [address] [place] [id number] Referring Physician Nurse Practitioner 09/18/22 Vat Packer Relationship Specialty Start Date End Date Jim Deleon MD [address] [place] [address] PCP - General Family Medicine 09/18/22 Gayla Martinez NP [address] [place] [address] Referring Physician Nurse Practitioner 09/18/22 [...] BE BASED ON THE PRIMARY CLINICAL RECORDS. [employer] provides no warranty or guarantee of the accuracy or completeness of information in this document.
--- NOTE | 2023-12-02 08:58 | P.CN_ITS ---
Consult Note: HPI Data of Consult Patient: known to practice within the last 3 years Requesting Physician: Gwendolyn Salamanca NP Primary Care Provider: Gayla Martinez NP Consult Narrative Reason for consult: f/u Narrative: Stephan muniz pleasant 63 year old female presents for evaluation and management of chronic back pain. Today pain 6/10 in right low back and right hip, describes as a sharp burning pain. Patient has a hx of L3,4,5 fusion. Patient has found mild benefit to current medication regimen, no side effects. Patient continues to have moderate to severe pain that is severely impacting functional ability, DIONNA 38%. Patient has completed aquatherapy without improvement. Patient recently underwent right superior cluneal RFA with 30% improvement ongoing. recent bilateral L5/S1 TFESI providing 65%-70% improvement per pt. cc:: CC: Gwendolyn Salamanca NP Review of Systems ROS Status of ROS 10 or more systems reviewed and unremark able except as noted in history and below Musculoskeletal Reports: back pain PFSH PFSH Medical History Low back pain ?M54.50 - Low back pain, unspecified (ICD-10) Osteoarthritis ?M19.90 - Unspecified osteoarthritis, unspecified site (ICD-10) Diabetes ?E11.9 - Type 2 diabetes mellitus without complications (ICD-10) COPD (chronic obstructive pulmonary disease) ?J44.9 - Chronic obstructive pulmonary disease, unspecified (ICD-10) Smoker ?F17.200 - Nicotine dependence, unspecified, uncomplicated (ICD-10) Hypertension ?I10 - Essential (primary) hypertension (ICD-10) Surgical History S/P surgical removal of pilonidal cyst ?Z98.890 - Other specified postprocedural states (ICD-10) H/O lumbosacral spine surgery ?Z98.890 - Other specified postprocedural states (ICD-10) Meds Home Medications and Allergies Home Medications ?Medication ?Instructions ?Recorded ?Confirmed ?Type amitriptyline 10 mg tablet 25 mg PO DAILY 11/23/22 11/22/23 History atorvastatin 20 mg tablet 20 mg PO DAILY 11/23/22 11/22/23 History ferrous sulfate 325 mg (65 mg 325 mg PO DAILY 11/23/22 11/22/23 History iron) tablet (FeroSul) fluticasone fur. 100 mcg-umeclid 1 inh inhalation DAILY 11/23/22 11/22/23 History 62.5 mcg-vilant 25 mcg inhalat.powder (Trelegy Ellipta) lisinopril 2.5 mg tablet 2.5 mg PO DAILY 11/23/22 11/22/23 History metformin 500 mg tablet 500 mg PO BID 11/23/22 11/22/23 History meloxicam 15 mg tablet 15 mg PO DAILY 04/15/23 11/22/23 History naloxone 4 mg/actuation nasal 4 mg intranasal Q3M PRN opioid 05/19/23 11/22/23 Rx spray (Narcan) overdose #2 ea tramadol 50 mg tablet 50 mg PO BID PRN pain #60 tabs 05/19/23 11/22/23 Rx fluticasone propionate 50 intranasal 08/30/23 History mcg/actuation nasal spray,suspension loratadine 10 mg tablet 10 mg PO DAILY 08/30/23 11/22/23 History tizanidine 4 mg capsule 4 mg PO QDAY PRN muscle spasticity 10/04/23 11/22/23 Rx #30 caps Allergies Allergy/AdvReac Type Severity Reaction Status Date / Time No Known Drug Allergies Allergy Verified 11/22/23 08:12 Exam Constitutional Documenting provider has reviewed patient's vital signs: yes Common normals: no apparent distress, oriented x3, healthy appearing, alert and well nourished General appearance: cooperative [facility] Common normals: normocephalic, hearing grossly normal bilaterally and moist oral mucous membranes Head and scalp: normocephalic Eye Common normals: PERRL Pupil: PERRL Neck & C-Spine Common normals: full ROM General: normal visual inspection Chest Common normals: inspection of chest normal Respiratory Common normals: normal respiratory effort, no retractions and no use of accessory muscles Back & Pelvis Lumbar spine/lower back: ROM limited, pain with ROM, lumbar spinal tenderness and straight leg raise negative bilaterally Sacroiliac joints: SI joints normal Other: facet loading bilateral strength 5/5 in BLE Extremity Common normals: normal to inspection and full ROM Neuro Common normals: oriented x3, CN's II-XII intact bilaterally, moves all extremities, no focal motor deficits, no sensory deficits noted and deep tendon reflexes 2+ bilaterally Sensorium/orientation: alert Gait (neuro): antalgic and assistive device used cane Motor exam: strength 5/5 throughout and no movement abnormalities noted Psych Common normals: mental status grossly normal, thought process normal, cooperative, affect normal, speech normal and activity/motor behavior normal Speech: normal speech Thought process: normal thought process Assessment and Plan Assessment and Plan (1) Chronic right-sided low back pain without sciatica: (2) Failed back syndrome: (3) Sacroiliitis: (4) Lumbar radiculopathy: (5) Muscle spasm: (6) Chronic prescription opiate use: (7) Lumbar stenosis with neurogenic claudication: (8) Lumbar spondylosis: Plan increase tizanidine 4mg BID PRN pain/spasms continue mobic 15mg daily, denies side effects. risks vs benefits reviewed continue tramadol 50mg BID PRN moderate to severe pain continue HEP as tolerated continue PRN bracing declining spinal cord stim trial at this time f/u 3 months, sooner if needed
== END 2023-12-02 08:28 | disposition home or self-care (01) ==
LOC: PM 08:27
PROVIDERS: PCP Nurse Practitioner; Visit Provider Nurse Practitioner
DX: M54.50 Low back pain, unspecified (principal); M96.1 Postlaminectomy syndrome, not elsewhere classified; M46.1 Sacroiliitis, not elsewhere classified; M54.16 Radiculopathy, lumbar region; M62.838 Other muscle spasm; Z79.891 Long term (current) use of opiate analgesic; M48.062 Spinal stenosis, lumbar region with neurogenic claudication; M47.816 Spondylosis without myelopathy or radiculopathy, lumbar region
CPT/HCPCS: G0463

== ENCOUNTER 2023-12-06 23:33 | Outpatient (REF) | payer OTHER, SELFPAY ==
--- OUTSIDE RECORDS SUMMARY | 2023-12-06 23:37 | XMS_ITS | CCD ---
Author Organization [facility] Care Team Providers Care Director Drug Safety Name Role Phone ALGHOEVELINEANI, MOHAMAD Attending Unavailable AICHHOLZ, MILLING MACHINIST GAYLA Primary Care Unavailable ALGHOTHANI, MOHAMAD Consulting Unavailable ALGHOTHANI, MOHAMAD Admitting Unavailable AICHHOLZ, MILLING MACHINIST GAYLA Primary Care Unavailable AICHHOLZ, MILLING MACHINIST GAYLA Admitting Unavailable AICHHOLZ, MILLING MACHINIST GAYLA Attending Unavailable AICHHOLZ, MILLING MACHINIST GAYLA Consulting Unavailable ALGHOTHANI, MOHAMAD Attending Unavailable AICHHOLZ, MILLING MACHINIST GAYLA Primary Care Unavailable ALGHOTHANI, MOHAMAD Consulting Unavailable ALGHOTHANI, MOHAMAD Admitting Unavailable ALGHOTHANI, MOHAMAD Attending Unavailable AICHHOLZ, MILLING MACHINIST GAYLA Primary Care Unavailable ALGHOTHANI, MOHAMAD Consulting Unavailable ALGHOTHANI, MOHAMAD Admitting Unavailable ALEX, INA Attending Unavailable ALEX, INA Admitting Unavailable ALEX, INA Consulting Unavailable AICHHOLZ, MILLING MACHINIST GAYLA Primary Care Unavailable AICHHOLZ, MILLING MACHINIST GAYLA Admitting Unavailable AICHHOLZ, MILLING MACHINIST GAYLA Attending Unavailable AICHHOLZ, MILLING MACHINIST GAYLA Consulting Unavailable AICHHOLZ, MILLING MACHINIST GAYLA Primary Care Unavailable AICHHOLZ, MILLING MACHINIST GAYLA Admitting Unavailable AICHHOLZ, MILLING MACHINIST GAYLA Attending Unavailable AICHHOLZ, MILLING MACHINIST GAYLA Consulting Unavailable AICHHOLZ, MILLING MACHINIST GAYLA Primary Care Unavailable ALEX, INA Attending Unavailable ALEX, INA Attending Unavailable DANTE HAND Attending Unavailable Aichholz PLACEMENT OFFICER, Gayla Unavailable Pancho BOWIE, Jim Primary Care Provider SHIRAZ, GAYLA Attending Unavailable AICHHOLZ, GAYLA Attending Unavailable AICHHOLZ, GAYLA Attending Unavailable Isabela BOWIE, Lara Amos Attending Unavailable Isabela BOWIE, Andjeanne Amos Attending Unavailable Isabela BOWIE, Andrius Amos Attending Unavailable Isabela BOWIE, Andrius Amos Attending Unavailable Isabela BOWIE, Lara Amos Attending Unavailable [facility] NURSE SUBSTANCE ABUSE-[facility], Gayla Cook Primary Care Unava ilable Edilson PA-C, Dasha Pedro Attending Unavailab le Unavailable, Physician Primary Care Unavailab le Aichholz NURSE SUBSTANCE ABUSE-MILLING MACHINIST, Gayla Cook Primary Care Unava ilable Edilson PA-C, Dasha Pedro Attending Unavailab le Tylor KAMARA MD, Delfino Holder navailable Edilson PA-C, Dasha Pedro Attending Unavailab le Unavailable, Physician Primary Care Unavailab le Edilson PA-C, Dasha Pedro Attending Unavailab le Aichholz NURSE SUBSTANCE ABUSE-MILLING MACHINIST, Gayla Cook Primary Care Unava ilable Edilson PA-C, Dasha Pedro Attending Unavailab le Edilson PA-C, Dasha Pedro Attending Unavailab le Edilson PA-C, Dasha Pedro Attending Unavailab le Gigokul BOWIE, Lara Amos Attending Unavailable Allergies Allergy Classification Reported Allergen(s) Allergy Type Date of Onset Reaction(s) Facility (3 sources) pregabalin; Translations: [PREGABALIN] Drug Allergy [address] [place] [address] Repository (1 source) No Known Medication Allergies; Translations: [No Known Medication Allergies] Propensity to adverse reactions to drug (disorder) [facility] Repository Medications Current Medications Medication Drug [...] oral solution (2 sources) alpha-Adrenergic Agonist, Uncompetitive G-jblqxz-Z-aspartat e Receptor Antagonist, Sigma-1 Agonist Start: 04-07-2023 [...] Provider Letter ARCELIA Santos [address] [place] [address] Re: Stephan López Date of Visit: 10/26/2023 Dear Gayla PANIAGUA, This patient was recently seen in the neurosurgical office. Please see attached note for further details. Let me know if you have any questions or concerns. Sincerely, MICHELLE Engle Providers: Gwendolyn Salamanca The following document(s) were included in the letter: October 26, 2023 14:35:44 EDT - (10/26/2023) Neurosurgery Office Visit Note Normal [facility] Neurosurgery Office/Clinic N oteon 10-26-2023 Neurosurgery [...] or weakness. She continues to follow with [facility] pain management and has undergone previous L5-S1 transforaminal SVITLANA 05/10/2023 with approximately 2 to 3 weeks incomplete benefit. She has also undergone bilateral sacroiliac joint injections. She is utilizing meloxicam and tizanidine once daily for pain as well as tramadol on rare occasion. Recent imaging (provider interpretation): MRI lumbar 08/03/2023 at [facility] reveals evidence of L3-5 posterior spinal fusion [...] facet arthropathy. Lumbar flexion/extension x-rays 04/30/2023 at [facility] reveals straightening of lumbar lordosis. Evidence of L3-5 posterior spinal fusion with instrumentation and interbody fusion L4-5. No evidence of hardware fracture or pullout. Patient found to have degenerative disc disease L2-3 and L5-S1. There is slight retrolisthesis L2-3 as well as unchanged anterior listhesis at her surgerized L4-5 segment. No evidence of dynamic instability. CT lumbar spine 02/03/2023 at [facility] reveals evidence of L3-5 posterior [...] central/left paracentral (more content not included)... Normal [facility] Neurosurgery Office/Clinic N zain 05-25-2023 Neurosurgery Office/Clinic [...] undergone an L5-S1 transforaminal SVITLANA 05/10/2023 by [facility] pain management which did give her approximately 2 to 3 weeks of incomplete benefit. She is planned for bilateral sacroiliac joint injections in the near future. The patient has discontinued her LSO brace that continues her electromagnetic stimulator 8 hours/day. Recent imaging (provider interpretation): Lumbar flexion/extension x-rays 04/30/2023 at [facility] reveals straightening of lumbar lordosis. Evidence of L3-5 posterior spinal fusion with instrumentation and interbody fusion L4-5. No evidence of hardware fracture or pullout. Patient found to have degenerative disc disease L2-3 and L5-S1. There is slight retrolisthesis L2-3 as well as unchanged anterior listhesis at her surgerized L4-5 segment. No evidence of dynamic instability. CT lumbar spine 02/03/2023 at [facility] reveals evidence of L3-5 posterior [...] prior imaging. CT lumbar spine 10/14/2022 at [facility] reveals evidence of L3-5 decompression [...] which c (more content not included)... Normal [facility] INFLUENZA A AND B AGon 0 04-08-2023 INFLUENZA VIRUS A ANTIGEN Positive Abnormal [facility] Comment on above: NOTE: Live attenuate d influenza vaccine viruses can cause a positive result for a rapid influenza diagnostic test if administered up to 7 days prior to rapid testing. INFLUENZA VIRUS B ANTIGEN Negative [facility] Comment on above: Negative for Flu B p rotein antigen. Infection due to Flu B cannot be ruled out. Flu B antigen in the sample may be below the detection limit of the test. Interpretation and review of laboratory results Abnormal [facility] 36on 03-19-2023 36 Please let her know her labs showed normal kidney function. Can continue lisinopril. Thank you Normal [facility] Telephoneon 03-19-2023 Telephone [id number] James López flavio Ceballos 1960 F Date Provider Department Center 03/19/2023 DANTE BAIG Rufus Gold Family History Problem Relation Age of Onset Other Mother Heart attack Father Other Father Other Father Other Maternal Grandmother Family Status - Relation Status Age at Mother Father Maternal Grandmother Normal [facility] Neurosurgery Office/Clinic N oteon 02-08-2023 [...] and tizanidine as provided by pain management ([facility] pain management) only as needed and has not yet returned to NSAID medication. She continues to utilize nicotine and understands the deleterious effects of nicotine on her overall health and bony arthrodesis. Recent imaging (provider interpretation): CT lumbar spine 02/03/2023 at [facility] reveals evidence of L3-5 posterior [...] prior imaging. CT lumbar spine 10/14/2022 at [facility] reveals evidence of L3-5 decompression [...] inc (more content not included)... Normal [facility] Office Visiton 01-19-2023 Follow-up visit [id number] James López 1960 F Date Provider Department Center 01/19/2023 DANTE BAIG ROXY Carcamo [facility] Family History Problem Relation Age of Onset Other Mother Heart attack Father Other Father Other Father Other Maternal Grandmother Family Status - Relation Status Age at Mother Father Maternal Grandmother Level of Service:26580 [place] OFFICE/OUTPATIENT ESTABLISHED LOW MDM 20-29 MIN Reason for Visit and Comments: Follow-up [542614] Hypertension [632002] Normal [facility] Neurosurgery Office/Clinic N oteon 12-22-2022 [...] 2 times per week. She follows with [facility] pain management which is a transition from [facility] pain management group. She continues to smoke [...] prior imaging. CT lumbar spine 10/14/2022 at [facility] reveals evidence of L3-5 decompression [...] normal respiratory effort She presents in [facility] lock brace with proper fit and alignment. This was removed at the time of today's visit for incision evaluation. Lumbosacral incision appears well-healed and without erythema, edema, drainage or warmth. She notes mild tenderness (more content not included)... Normal [facility] Neurosurgery Office/Clinic N oteon 11-26-2022 Neurosurgery [...] she recently transferred pain management care from [facility] to [facility]. Per the patient, they eventually would like her to initiate hot water physical therapy though only after receiving clearance from this office. Recent imaging (provider interpretation): CT lumbar spine 10/14/2022 at [facility] reveals evidence of L3-5 decompression [...] demonstrates normal respiratory effort She presents in [facility] brace with proper fit and alignment. [...] extre (more content not included)... Normal [facility] Office Visiton 07-03-2022 Follow-up visit [id number] James López 1960 F Date Provider Department Center 07/03/2022 Dory-INA JOHNSON Family History Problem Relation Age of Onset Other Mother Heart attack Father Other Father Other Father Other Maternal Grandmother Family Status - Relation Status Age at Mother Father Maternal Grandmother Level of Service:56533 [place] OFFICE/OUTPATIENT ESTABLISHED LOW MDM 20-29 MIN Reason for Visit and Comments: Hypertension [745443] pericardial effusion [Other] Normal [facility] PROF CHEM 8 (BAS METB)on Anion gap [Moles/Vol] 12.9 mmol/L Normal [facility] Comment on above: Performed By: #### C BC #### [facility] [address] [address] [address] Yariel Herrera Calcium [Mass/Vol] 9.0 mg/dL Normal 8.5-10.1 [facility] Comment on above: Performed By: #### C BC #### [facility] [address] [address] [address] Yariel Herrera Chloride [Moles/Vol] 106 mmol/L Normal 98-107 [facility] Comment on above: Performed By: #### C BC #### [facility] [address] [place] [address] Dr. Yariel Herrera CO2 [Moles/Vol] 28.3 mmol/L Normal 21.0-32.0 [facility] Comment on above: Performed By: #### C BC #### [facility] [address] [place] [address] Dr. Yariel Herrera Creatinine [Mass/Vol] 0.81 mg/dL Normal 0.55-1.02 [facility] Comment on above: Performed By: #### C BC #### [facility] [address] [place] [address] Dr. Yariel Herrera EGFR-AF MOLDOVAN >60 Normal >=60 [facility] Comment on above: Performed By: #### C BC #### [facility] [address] [place] [address] Dr. Yariel Herrera EGFR-NON AF MOLDOVAN >60 Normal >=60 [facility] Comment on above: Performed By: #### C BC #### [facility] [address] [place] [address] Dr. Yariel Herrera Glucose [Mass/Vol] 103 mg/dL Normal 74-106 [facility] Comment on above: Performed By: #### C BC #### [facility] [address] [place] [address] Dr. Yariel Herrera Potassium [Moles/Vol] 4.2 mmol/L Normal 3.5-5.1 [facility] Comment on above: Performed By: #### C BC #### [facility] [address] [address] [address] Yariel Herrera Sodium [Moles/Vol] 143 mmol/L Normal 136-145 [facility] Comment on above: Performed By: #### C BC #### [facility] [address] [address] [address] Yariel Herrera Urea nitrogen [Mass/Vol] 9.0 mg/dL Normal 7.0-18.0 [facility] Comment on above: Performed By: #### C BC #### [facility] [address] [address] [address] Yariel Herrera Urea nitrogen/Creatinine [Mass ratio] 11.1 mg/mg Normal [facility] Comment on above: Performed By: #### C BC #### [facility] [address] [address] [address] Yariel Herrera 37on 06-10-2022 37 Start lisinopril 2.5 mg daily, Have labs/blood checked in 1 week for kidney function Monitor b/p at home 1-2 times/day and record on a log- bring with her to next visit. If you notice a dry, persistent cough- stop lisinopril and call office please. Normal [facility] Office Visiton 06-10-2022 Follow-up visit [id number] James López 1960 F Date Provider Department Center 06/10/2022 INA JONES [facility] Family History Problem Relation Age of Onset Other Mother Heart attack Father Other Father Other Father Other Maternal Grandmother Family Status - Relation Status Age at Mother Father Maternal Grandmother Level of Service:09134 [place] OFFICE/OUTPATIENT ESTABLISHED MOD MDM 30-39 MIN [facility] ECHOCARDIO M/2D COMPLETEon 0 05-08-2022 ECHOCARDIO M/2D COMPLETE Patient: STEPHAN LÓPEZ Exam Date: 05/08/2022 : 1960 Gender:F Ordering : CARL WILLIS Admission #: [id number] Family : GAURAV MARTINEZ [facility] Order #: [id number] CLICK HERE TO VIEW EXAM ECHOCARDIOGRAM REPORT [...] Elie Garzon M.D. on 05/08/2022 at 14:20 [facility] ABHINAV by IFAon 01-08-2022 Antinuclear Antibodies, IFA Negative Normal [facility] Comment on above: Result Comment: Nega tive <1:80 Borderline 1:80 Positive >1:80 ICAP nomenclature: AC-0 For more information about Hep-2 cell patterns use ANApatterns.org, the official website for the International Consensus on Antinuclear Antibody (ABHINAV) Patterns (ICAP). Performed By: #### A NAIFA #### [facility] [address] [place] [address] Dr. Yariel Herrera CBC AUTO DIFFon 01-05-2022 BASO # 0.1 103/ul Normal 0.0-0.1 [facility] Comment on above: Performed By: #### C BC #### [facility] [address] [place] [address] Dr. Yariel Herrera Basophils/100 WBC (Bld) 0.6 % Normal 0.2-2.0 [facility] Comment on above: Performed By: #### C BC #### [facility] [address] [place] [address] Dr. Yariel Herrera EO # 0.2 103/ul Normal 0.0-0.7 [facility] Comment on above: Performed By: #### C BC #### [facility] [address] [place] [address] Dr. Yariel Herrera Eosinophils/100 WBC (Bld) 1.4 % Normal 0.9-7.0 [facility] Comment on above: Performed By: #### C BC #### [facility] [address] [place] [address] Dr. Yariel Herrera Erythrocyte distribution width (RBC) [Ratio] 13.6 % Normal 11.0-15.0 [facility] Comment on above: Performed By: #### C BC #### [facility] [address] [place] [address] Dr. Yariel Herrera Hematocrit (Bld) [Volume fraction] 46.6 % Normal 36.0-48.0 [facility] Comment on above: Performed By: #### C BC #### [facility] [address] [place] [address] Dr. Yariel Herrear Hemoglobin (Bld) [Mass/Vol] 15.4 g/dL Normal 12.0-16.0 [facility] Comment on above: Performed By: #### C BC #### [facility] [address] [place] [address] Dr. Yariel Herrera IG # 0.03 10e3/ul Normal 0.00-0.03 [facility] Comment on above: Performed By: #### C BC #### [facility] [address] [place] [address] Dr. Yariel Herrera IG % 0.2 % Normal 0.0-0.5 [facility] Comment on above: Performed By: #### C BC #### [facility] [address] [place] [address] Dr. Yariel Herrera LYMPH # 4.2 103/ul Critically high 1.2-3.8 [facility] Comment on above: Performed By: #### C BC #### [facility] [address] [place] [address] Dr. Yariel Herrera Lymphocytes/100 WBC (Bld) 31.3 % Normal 20.5-60.0 [facility] Comment on above: Performed By: #### C BC #### [facility] [address] [place] [address] Dr. Yariel Herrera MANUAL DIFF REQ NO Normal [facility] Comment on above: Performed By: #### C BC #### [facility] [address] [place] [address] Dr. Yariel Herrera MCH (RBC) [Entitic mass] 31.6 pg Normal 26.7-34.0 [facility] Comment on above: Performed By: #### C BC #### [facility] [address] [place] [address] Dr. Yariel Herrera MCHC (RBC) [Mass/Vol] 33.0 g/dL Normal 29.9-35.2 [facility] Comment on above: Performed By: #### C BC #### [facility] [address] [place] [address] Dr. Yariel Herrera MCV (RBC) [Entitic vol] 95.7 fL Normal 81.0-99.0 [facility] Comment on above: Performed By: #### C BC #### [facility] [address] [place] [address] Dr. Yariel Herrera MONO # 0.9 103/ul Critically high 0.3-0.8 [facility] Comment on above: Performed By: #### C BC #### [facility] [address] [place] [address] Dr. Yariel Herrera Monocytes/100 WBC (Bld) 6.8 % Normal 1.7-12.0 [facility] Comment on above: Performed By: #### C BC #### [facility] [address] [place] [address] Dr. Yariel Herrera NEUT # 8.0 103/ul Critically high 1.4-6.5 [facility] Comment on above: Performed By: #### C BC #### [facility] [address] [place] [address] Dr. Yariel Herrera Neutrophils/100 WBC (Bld) 59.7 % Normal 43.0-75.0 [facility] Comment on above: Performed By: #### C BC #### [facility] [address] [place] [address] Dr. Yariel Herrera Platelet mean volume (Bld) [Entitic vol] 10.7 fL Normal 9.5-13.5 [facility] Comment on above: Performed By: #### C BC #### [facility] [address] [place] [address] Dr. Yariel Herrera PLT 340 103/ul Normal 150-450 [facility] Comment on above: Performed By: #### C BC #### [facility] [address] [place] [address] Dr. Yariel Herrera RBC 4.87 106/ul Normal 4.20-5.40 [facility] Comment on above: Performed By: #### C BC #### [facility] [address] [place] [address] Dr. Yariel Herrera WBC 13.4 103/ul Critically high 4.0-11.0 [facility] Comment on above: Performed By: #### C BC #### [facility] [address] [place] [address] Dr. Yariel Herrera FREE T4on 01-05-2022 Free T4 [Mass/Vol] 1.06 ng/dL Normal 0.76-1.46 [facility] Comment on above: Performed By: #### C BC #### [facility] [address] [place] [address] Dr. Yariel Herrera PROF 14(COMP METB)on 022 Albumin [Mass/Vol] 3.9 g/dL Normal 3.4-5.0 [facility] Comment on above: Performed By: #### C MP, TSH #### [facility] [address] [place] [address] Dr. Yariel Herrera Albumin/Globulin [Mass ratio] 1.1 {ratio} Normal [facility] Comment on above: Performed By: #### C MP, TSH #### [facility] [address] [place] [address] Dr. Yariel Herrera ALP [Catalytic activity/Vol] 99 U/L Normal 46-116 [facility] Comment on above: Performed By: #### C MP, TSH #### [facility] [address] [place] [address] Dr. Yariel Herrera ALT [Catalytic activity/Vol] 17 U/L Normal 14-59 [facility] Comment on above: Performed By: #### C MP, TSH #### [facility] [address] [place] [address] Dr. Yariel Herrera Anion gap [Moles/Vol] 10.1 mmol/L Normal [facility] Comment on above: Performed By: #### C MP, TSH #### [facility] [address] [place] [address] Dr. Yariel Herrera AST [Catalytic activity/Vol] 14 U/L Critically low 15-37 [facility] Comment on above: Performed By: #### C MP, TSH #### [facility] [address] [place] [address] Dr. Yariel Herrera Bilirubin [Mass/Vol] 0.3 mg/dL Normal 0.2-1.0 [facility] Comment on above: Performed By: #### C MP, TSH #### [facility] [address] [place] [address] Dr. Yariel Herrera Calcium [Mass/Vol] 9.4 mg/dL Normal 8.5-10.1 [facility] Comment on above: Performed By: #### C MP, TSH #### [facility] [address] [place] [address] Dr. Yariel Herrera Chloride [Moles/Vol] 103 mmol/L Normal 98-107 [facility] Comment on above: Performed By: #### C MP, TSH #### [facility] [address] [place] [address] Dr. Yariel Herrera CO2 [Moles/Vol] 30.9 mmol/L Normal 21.0-32.0 [facility] Comment on above: Performed By: #### C MP, TSH #### [facility] [address] [place] [address] Dr. Yariel Herrera Creatinine [Mass/Vol] 0.88 mg/dL Normal 0.55-1.02 [facility] Comment on above: Performed By: #### C MP, TSH #### [facility] [address] [place] [address] Dr. Yariel Herrera EGFR-AF MOLDOVAN >60 Normal >=60 [facility] Comment on above: Performed By: #### C MP, TSH #### [facility] [address] [place] [address] Dr. Yariel Herrera EGFR-NON AF MOLDOVAN >60 Normal >=60 [facility] Comment on above: Performed By: #### C MP, TSH #### [facility] [address] [place] [address] Dr. Yariel Herrera Globulin (S) [Mass/Vol] 3.5 g/dL Normal [facility] Comment on above: Performed By: #### C MP, TSH #### [facility] [address] [place] [address] Dr. Yariel Herrera Glucose [Mass/Vol] 117 mg/dL Critically high 74-106 T [facility] [place] [facility] Comment on above: Performed By: #### C MP, TSH #### [facility] [address] [address] [address] Yariel Herrera Potassium [Moles/Vol] 4.0 mmol/L Normal 3.5-5.1 [facility] Comment on above: Performed By: #### C MP, TSH #### [facility] [address] [place] [address] Dr. Yariel Herrera Protein [Mass/Vol] 7.4 g/dL Normal 6.4-8.2 [facility] Comment on above: Performed By: #### C MP, TSH #### [facility] [address] [place] [address] Dr. Yariel Herrera Sodium [Moles/Vol] 140 mmol/L Normal 136-145 [facility] Comment on above: Performed By: #### C MP, TSH #### [facility] [address] [place] [address] Dr. aYriel Herrera Urea nitrogen [Mass/Vol] 18.0 mg/dL Normal 7.0-18.0 [facility] Comment on above: Performed By: #### C MP, TSH #### [facility] [address] [place] [address] Dr. Yariel Herrera Urea nitrogen/Creatinine [Mass ratio] 20.5 mg/mg Normal [facility] Comment on above: Performed By: #### C MP, TSH #### [facility] [address] [place] [address] Dr. Yariel Herrera TSHon 01-05-2022 TSH 1.380 uIU/mL Normal 0.358-3.740 [facility] Comment on above: Performed By: #### C MP, TSH #### [facility] [address] [place] [address] Dr. Yariel Herrera GLYCOHEMOGLOBIN A1Con 2021 ADA RECOMMENDATION SEE BELOW Normal [facility] Comment on above: Result Comment: ADA RECOMMENDED LIMIT 4.0 - 6.0 ADA THERAPEUTIC TARGET < 7.0 ACTION SUGGESTED > 7.0 Performed By: #### A 1C #### [facility] [address] [place], [place] [address] Dr. Yariel Herrera Glucose [Mass/Vol] 137 mg/dL Normal [facility] Comment on above: Performed By: #### A 1C #### [facility] [address] [place], [place] [address] Dr. Yariel Herrera HbA1c (Bld) [Mass fraction] 6.4 % Critically high 4.5-6.2 [facility] Comment on above: Performed By: #### A 1C #### [facility] [address] [place], [place] [address] Dr. Yariel Herrera ECHOCARDIO M/2D COMPLETEon 0 10-16-2021 ECHOCARDIO M/2D COMPLETE Patient: STEPHAN LÓPEZ Exam Date: 10/16/2021 : 1960 Gender:F Ordering : CARL WILLIS Admission #: [id number] Family : Order #: [id number] CLICK HERE TO VIEW EXAM ECHOCARDIOGRAM REPORT [...] Melvin M.D. on 10/16/2021 at 17:12 Normal [facility] ECHOCARDIO M/2D COMPLETEon 0 09-16-2021 ECHOCARDIO M/2D COMPLETE Patient: STEPHAN LÓPEZ Exam Date: 09/16/2021 : 1960 Gender:F Ordering : GAURAV GAYLA SHIRAZ [facility] Admission #: [id number] Family : Order #: [id number] CLICK HERE TO VIEW EXAM ECHOCARDIOGRAM REPORT [...] M.D. on 09/17/2021 at 13:02 Normal [facility] CBC AUTO DIFFon 08-04-2021 BASO # 0.1 103/ul Normal 0.0-0.1 [facility] Comment on above: Performed By: #### C BC #### [facility] [address] [address] [address] Yariel Herrera Basophils/100 WBC (Bld) 0.6 % Normal 0.2-2.0 [facility] Comment on above: Performed By: #### C BC #### [facility] [address] [address] [address] Yariel Herrera EO # 0.1 103/ul Normal 0.0-0.7 [facility] Comment on above: Performed By: #### C BC #### [facility] [address] [address] [address] Yariel Herrera Eosinophils/100 WBC (Bld) 0.9 % Normal 0.9-7.0 [facility] Comment on above: Performed By: #### C BC #### [facility] [address] [address] [address] Yariel Herrera Erythrocyte distribution width (RBC) [Ratio] 13.8 % Normal 11.0-15.0 [facility] Comment on above: Performed By: #### C BC #### [facility] [address] [address] [address] Yariel Herrera Hematocrit (Bld) [Volume fraction] 47.1 % Normal 36.0-48.0 [facility] Comment on above: Performed By: #### C BC #### [facility] [address] [address] [address] Yariel Herrera Hemoglobin (Bld) [Mass/Vol] 15.2 g/dL Normal 12.0-16.0 [facility] Comment on above: Performed By: #### C BC #### [facility] [address] [address] [address] Yariel Herrera IG # 0.04 10e3/ul Critically high 0.00-0.03 [facility] Comment on above: Performed By: #### C BC #### [facility] [address] [place] [address] Dr. Yariel Herrera IG % 0.3 % Normal 0.0-0.5 [facility] Comment on above: Performed By: #### C BC #### [facility] [address] [place] [address] Dr. Yariel Herrera LYMPH # 3.7 103/ul Normal 1.2-3.8 [facility] Comment on above: Performed By: #### C BC #### [facility] [address] [place] [address] Dr. Yariel Herrera Lymphocytes/100 WBC (Bld) 30.6 % Normal 20.5-60.0 [facility] Comment on above: Performed By: #### C BC #### [facility] [address] [place] [address] Dr. Yariel Herrera MANUAL DIFF REQ NO Normal [facility] Comment on above: Performed By: #### C BC #### [facility] [address] [place] [address] Dr. Yariel Herrera MCH (RBC) [Entitic mass] 32.0 pg Normal 26.7-34.0 [facility] Comment on above: Performed By: #### C BC #### [facility] [address] [place] [address] Dr. Yariel Herrera MCHC (RBC) [Mass/Vol] 32.3 g/dL Normal 29.9-35.2 [facility] Comment on above: Performed By: #### C BC #### [facility] [address] [place] [address] Dr. Yariel Herrera MCV (RBC) [Entitic vol] 99.2 fL Critically high 81.0-99.0 [facility] Comment on above: Performed By: #### C BC #### [facility] [address] [place] [address] Dr. Yariel Herrera MONO # 0.9 103/ul Critically high 0.3-0.8 [facility] Comment on above: Performed By: #### C BC #### [facility] [address] [address] [address] Yariel Herrera Monocytes/100 WBC (Bld) 7.4 % Normal 1.7-12.0 [facility] Comment on above: Performed By: #### C BC #### [facility] [address] [address] [address] Yariel Herrera NEUT # 7.3 103/ul Critically high 1.4-6.5 [facility] Comment on above: Performed By: #### C BC #### [facility] [address] [address] [address] Yariel Herrera Neutrophils/100 WBC (Bld) 60.2 % Normal 43.0-75.0 [facility] Comment on above: Performed By: #### C BC #### [facility] [address] [place] [address] Dr. Yariel Herrera Platelet mean volume (Bld) [Entitic vol] 11.7 fL Normal 9.5-13.5 [facility] Comment on above: Performed By: #### C BC #### [facility] [address] [place] [address] Dr. Yariel Herrera PLT 330 103/ul Normal 150-450 [facility] Comment on above: Performed By: #### C BC #### [facility] [address] [place] [address] Dr. Yariel Herrera RBC 4.75 106/ul Normal 4.20-5.40 [facility] Comment on above: Performed By: #### C BC #### [facility] [address] [place] [address] Dr. Yariel Herrera WBC 12.1 103/ul Critically high 4.0-11.0 [facility] Comment on above: Performed By: #### C BC #### [facility] [address] [place] [address] Dr. Yariel Herrera FREE T3on 08-04-2021 FREE T3 2.46 pg/mlL Normal 2.18-3.98 [facility] Comment on above: Performed By: #### C BC #### [facility] [address] [place] [address] Dr. Yariel Herrera FREE T4on 08-04-2021 Free T4 [Mass/Vol] 1.08 ng/dL Normal 0.76-1.46 [facility] Comment on above: Performed By: #### F T4 #### [facility] [address] [place] [address] Dr. Yariel Herrera PROF 14(COMP METB)on 022 Albumin [Mass/Vol] 4.2 g/dL Normal 3.4-5.0 [facility] Comment on above: Performed By: #### C BC #### [facility] [address] [place] [address] Dr. Yariel Herrera Albumin/Globulin [Mass ratio] 1.2 {ratio} Normal [facility] Comment on above: Performed By: #### C BC #### [facility] [address] [place] [address] Dr. Yariel Herrera ALP [Catalytic activity/Vol] 87 U/L Normal 46-116 [facility] Comment on above: Performed By: #### C BC #### [facility] [address] [place] [address] Dr. Yariel Herrera ALT [Catalytic activity/Vol] 25 U/L Normal 14-59 [facility] Comment on above: Performed By: #### C BC #### [facility] [address] [place] [address] Dr. Yariel Herrera Anion gap [Moles/Vol] 13.3 mmol/L Normal [facility] Comment on above: Performed By: #### C BC #### [facility] [address] [place] [address] Dr. Yariel Herrera AST [Catalytic activity/Vol] 15 U/L Normal 15-37 [facility] Comment on above: Performed By: #### C BC #### [facility] [address] [place] [address] Dr. Yariel Herrera Bilirubin [Mass/Vol] 0.5 mg/dL Normal 0.2-1.0 [facility] Comment on above: Performed By: #### C BC #### [facility] [address] [address] [address] Yariel Herrera Calcium [Mass/Vol] 9.6 mg/dL Normal 8.5-10.1 [facility] Comment on above: Performed By: #### C BC #### [facility] [address] [address] [address] Yariel Herrera Chloride [Moles/Vol] 103 mmol/L Normal 98-107 [facility] Comment on above: Performed By: #### C BC #### [facility] [address] [place] [address] Dr. Yariel Herrera CO2 [Moles/Vol] 28.9 mmol/L Normal 21.0-32.0 [facility] Comment on above: Performed By: #### C BC #### [facility] [address] [place] [address] Dr. Yariel Herrera Creatinine [Mass/Vol] 0.84 mg/dL Normal 0.55-1.02 [facility] Comment on above: Performed By: #### C BC #### [facility] [address] [place] [address] Dr. Yariel Herrera EGFR-AF MOLDOVAN >60 Normal >=60 [facility] Comment on above: Performed By: #### C BC #### [facility] [address] [place] [address] Dr. Yariel Herrera EGFR-NON AF MOLDOVAN >60 Normal >=60 [facility] Comment on above: Performed By: #### C BC #### [facility] [address] [place] [address] Dr. Yariel Herrera Globulin (S) [Mass/Vol] 3.4 g/dL Normal [facility] Comment on above: Performed By: #### C BC #### [facility] [address] [place] [address] Dr. Yariel Herrera Glucose [Mass/Vol] 111 mg/dL Critically high 74-106 T [facility] [place] [facility] Comment on above: Performed By: #### C BC #### [facility] [address] [place] [address] Dr. Yariel Herrera Potassium [Moles/Vol] 4.2 mmol/L Normal 3.5-5.1 [facility] Comment on above: Performed By: #### C BC #### [facility] [address] [place] [address] Dr. Yariel Herrera Protein [Mass/Vol] 7.6 g/dL Normal 6.4-8.2 [facility] Comment on above: Performed By: #### C BC #### [facility] [address] [place] [address] Dr. Yariel Herrera Sodium [Moles/Vol] 141 mmol/L Normal 136-145 [facility] Comment on above: Performed By: #### C BC #### [facility] [address] [place] [address] Dr. Yariel Herrera Urea nitrogen [Mass/Vol] 15.0 mg/dL Normal 7.0-18.0 [facility] Comment on above: Performed By: #### C BC #### [facility] [address] [place] [address] Dr. Yariel Herrera Urea nitrogen/Creatinine [Mass ratio] 17.9 mg/mg Normal [facility] Comment on above: Performed By: #### C BC #### [facility] [address] [place] [address] Dr. Yariel Herrera TSHon 08-04-2021 TSH 1.073 uIU/mL Normal 0.358-3.740 [facility] Comment on above: Performed By: #### C BC #### [facility] [address] [place] [address] Dr. Yariel Herrera TSH RANGE SEE BELOW Normal [facility] Comment on above: Result Comment: <0.3 4 UIU/ml HYPERTHYROID 0.34-5.60 UIU/ml EUTHYROID >5.60 UIU/ml HYPOTHYROID Performed By: #### C BC #### [facility] [address] [place] [address] Dr. Yariel Herrera Encounters Encounter Date Encounter Type Care Provider Facility Start: 11-22-2023 End: 11-22-2023 ambulatory Lara Mar MD Facility:[facility] Start: 10-26-2023 ambulatory Dasha Waggoner PA-C F acility:[facility] Start: 10-26-2023 End: 10-26-2023 ambulatory Gayla Martinez NURSE SUBSTANCE ABUSE-MILLING MACHINIST Facility:[facility] Start: 09-27-2023 End: 09-27-2023 ambulatory Lara Mar MD [facility]: [facility] Start: 08-30-2023 End: 08-30-2023 ambulatory Lara Mar MD [facility]: [facility] Start: 07-27-2023 End: 07-27-2023 ambulatory GAYLA MARTINEZ Not Available Start: 07-05-2023 End: 07-05-2023 ambulatory [facility] Start: 06-14-2023 End: 06-14-2023 ambulatory Lara Mar MD Facility:[facility] Start: 05-25-2023 End: 05-25-2023 ambulatory Dasha Waggoner PA-C [facility] Start: 05-10-2023 End: 05-10-2023 ambulatory Lara Mar MD Facility:[facility] Start: 05-04-2023 End: 05-04-2023 ambulatory Delfino Snider III, MD Facility:[facility] Start: 04-26-2023 End: 04-26-2023 ambulatory GAYLA MARTINEZ Not Available Start: 04-08-2023 Clinisync Result Encounter Gayla Martinez PLACEMENT OFFICER Work Phone: [facility] Unsolicited Start: 04-08-2023 Clinisync Result Encounter Gayla Martinez PLACEMENT OFFICER Work Phone: [facility] Unsolicited Start: 04-07-2023 Refill Gayla Martinez PLACEMENT OFFICER Work Phone: [facility] Comment on above: COPD with exacerbati on (CMS/HCC) (Primary Dx) Start: 02-08-2023 End: 02-08-2023 ambulatory Dasha HODGES-C [facility] Start: 01-25-2023 End: 01-25-2023 ambulatory GAYLA MARTINEZ Not Available Start: 01-19-2023 End: 01-19-2023 ambulatory DANTE HADN [facility] Start: 12-22-2022 End: 12-22-2022 ambulatory Dasha HODGES-C Facility:[facility] Start: 11-26-2022 End: 11-26-2022 ambulatory Dasha HODGES-C Facility:[facility] Start: 07-03-2022 End: 07-03-2022 ambulatory [facility] Start: 06-17-2022 End: 06-18-2022 ambulatory INA LINKS Facility:[facility] Start: 06-10-2022 End: 06-10-2022 ambulatory [facility] Start: 05-08-2022 End: 05-09-2022 ambulatory MOHAMAD ALGHOTHANI Facility:[facility] Start: 01-05-2022 End: 01-06-2022 ambulatory MOHAMAD ALGHOTHANI Facility:[facility] Start: 11-05-2021 End: 11-06-2021 ambulatory MILLING MACHINIST GAYLA SHIRAZ Facility:[facility] Start: 10-16-2021 End: 10-17-2021 ambulatory MOHAMAD ALGHOTHANI Facility:[facility] Start: 09-16-2021 End: 09-17-2021 ambulatory MILLING MACHINIST GAYLA SHIRAZ Facility:[facility] Start: 08-04-2021 End: 08-05-2021 ambulatory MILLING MACHINIST GAYLA SHIRAZ Facility:[facility] Procedures Date Procedure Procedure Detail Performing Clinician Start: 04-08-2023 [facility] INFLUENZA A AND B AG Gayla Martinez PLACEMENT OFFICER Work Phone: Start: 12-03-2022 Mammography Gayla jerome PLACEMENT OFFICER Work Phone: Start: 04-20-2013 Colonoscopy Gayla jerome PLACEMENT OFFICER Work Phone: Plan of Treatment Date Care Activity Detail Author Start: 09-08-2026 Screening for malign ant neoplasm of colon [facility] Start: 12-04-2023 Screening for malign ant neoplasm of breast Mammogram [facility] Start: 08-22-2023 Influenza vaccination Influenza Vacc ine (#1) [facility] Comment on above: Postponed from 10/23 (Other Medical Reasons) Start: 07-24-2023 Screening for malign ant neoplasm of cervix Cervical Cancer Screening [facility] Comment on above: Postponed from 02/03 (Other Medical Reasons) Start: 05-30-2023 Urine screening for protein Diabetes: Urine Protein Screening [facility] Start: 04-26-2023 Glaucoma screening Diabetes: R etinopathy Screening [facility] Comment on above: Postponed from 02/03 (Other Medical Reasons) Start: 04-26-2023 End: 04-26-2023 Patient encounter procedure 04/26/2023 9:00 AM EST Office Visit [facility] [address] [place] [address] Gayla Martinez NP [address] [place] [id number] [facility] Start: 03-05-2023 Hemoglobin A1c measurement Diabetes: Hemoglobin A1C [facility] Start: 02-03-1990 Screening for malign ant neoplasm of cervix HPV/Cotest [facility] Start: 02-03-1981 Screening for malign ant neoplasm of cervix Pap Smear [facility] Start: 1960 Screening for malign ant neoplasm of colon [facility] Immunizations Immunization Date Immunization Notes Care Provider Fa cili 01-06-2022 influenza virus vacc ine, unspecified formulation Gayla Martinez NP Work Phone: [facility] Payers Date Payer Category Payer Private Health Insurance 2022 Medicaid [employer] [place] [id number] 2022-Present [address] [place] [address] [id number] 1960 Unknown [id number] 2.16.840.1.601502.3.579.2. 593 1960 Unknown [id number] 2.16.840.1.806504.3.579.2. 593 1960 Unknown [id number] 2.16.840.1.426491.3.579.2. 593 1960 Unknown [id number] 2.16.840.1.824190.3.579.2. 593 1960 Unknown [id number] 2.16.840.1.095681.3.579.2. 593 1960 Unknown [id number] 2.16.840.1.133136.3.579.2. 593 1960 Unknown [id number] 2.16.840.1.927644.3.579.2. 593 1960 Unknown [id number] 2.16.840.1.965392.3.579.2. 1259 1960 Unknown [id number] 2.16.840.1.614321.3.579.2. 1259 1960 Unknown [id number] 2.16.840.1.209205.3.579.2. 1259 1960 Unknown [id number] 2.16.840.1.402813.3.579.2. 196 1960 Unknown [id number] 2.16.840.1.898290.3.579.2. 196 1960 Unknown [id number] 2.16.840.1.605285.3.579.2. 196 1960 Unknown [id number] 2.16.840.1.372615.3.579.2. 196 1960 Unknown [id number] 2.16.840.1.280567.3.579.2. 196 1960 Unknown [id number] 2.16.840.1.941116.3.579.2. 196 1960 Unknown [id number] 2.16.840.1.909943.3.579.2. 196 1960 Unknown [id number] 2.16.840.1.743082.3.579.2. 1960 Unknown [id number] 2.16.840.1.303225.3.579.2. 196 1960 Unknown [id number] 2.16.840.1.704436.3.579.2. 1960 Unknown [id number] 2.16.840.1.079622.3.579.2. 1960 Unknown [id number] 2.16.840.1.518840.3.579.2. 1960 Unknown [id number] 2.16.840.1.452345.3.579.2. 196 1959 Unknown [id number] 1959 Unknown [id number] Social History Date Type Detail Facility Start: 01-25-2023 Tobacco smoking stat [facility] Smokes tobacco daily [facility] History of tobacco use Cigarette Smoker [facility] Start: 01-25-2023 Cigarettes smoked cu rrent (pack per day) - Reported 0.5 [facility] Start: 01-25-2023 Tobacco use and exposure Smoke less tobacco non-user [facility] Start: 02-08-2023 Alcohol intake Lifetime non-d mariaa (finding) [facility] Start: 01-25-2023 Tobacco use panel [facility] Start: 1960 Sex Assigned At Not on file [facility] Medical Equipment Procedure Code Equipment Code Equipment Original Text Equi pment Identifier Dates 1 Device Daily as needed. [id number] Clinical Notes 06-10-2022 to 01-19-2023 Note Date & Type Note Facility 01-19-2023 Note Cardiovascular Medic ine [facility] SUBJECTIVE Chief Complaint Patient presents with Follow-up Hypertension Stephan López is a 62 y.o. female here for follow-up. HPI PMHx: HTN, pericardial effusion, HLD She denies any cardiac concerns today. She has back problems. She is 5 months s/p surgery and she is still recovering. She is following with pain management at [facility]. She is not currently checking her [...] Dante Hand NP [facility] 01-19-2023 Note Patient here for [...] other systems reviewed and are negative. [facility] 07-03-2022 Note No concerning symptoms [facility] [place] [facility] 07-03-2022 Note Hypertension is well controlled 120/84 Reviewed b/p log and overall her b/p is controlled with some outliers of high and low b/p. Renal function was normal s/p starting lisinopril [facility] 07-03-2022 Note Patient here for [...] other systems reviewed and are negative. [facility] 07-03-2022 Note [facility] CARDIOLOGY PROGR [...] No concerning symptoms RTC 6 months [facility] 06-10-2022 Note F/U with PCP [facility] 06-10-2022 Note Hypertension is 145/ 99 uncontrolled Will start lisinopril 2.5 mg daily BMP in 1 week Start monitoring b/p at home and record on a log, RTC 1 month D/W pt about side effects of 1st dose low b/p and dry persistent cough [facility] 06-10-2022 Note Recent echo with not ed trivial effusion. No recent illness or any concerning symptoms [facility] 06-10-2022 Note [facility] CARDIOLOGY PROGR [...] PCP RTC 1 month for re-evaluation [facility] 06-10-2022 Note Patient here for 6 m o follow up pericardial effusion. Had echo in April 2022. Denies chest pain and SOB. Review of Systems Musculoskeletal: Positive for back pain. All other systems reviewed and are negative. [facility] Evaluation note Diagnosis COPD with [...] and content) DATE CREATED AUTHOR 06/21/2022 [facility] DATE CREATED AUTHOR AUTHOR'S ORGANIZ ATION 03/20/2023 [facility] DATE CREATED AUTHOR AUTHOR'S ORGANIZ ATION 07/28/2023 [facility] DATE CREATED AUTHOR AUTHOR'S ORGANIZ ATION 11/26/2023 [facility] Care Teams (unrecognized sec tion and content) Director Drug Safety Relationship Specialty Start Date End Date Jim Deleon MD [address] [place] [id number] PCP - General Family Medicine 09/18/22 Gayla Martinez NP [address] [place] [id number] Referring Physician Nurse Practitioner 09/18/22 Director Drug Safety Relationship Specialty Start Date End Date Jim Deleon MD [address] [place] [id number] PCP - General Family Medicine 09/18/22 Gayla Martinez NP [address] [place] [id number] Referring Physician Nurse Practitioner 09/18/22 [...] BE BASED ON THE PRIMARY CLINICAL RECORDS. [employer] provides no warranty or guarantee of the accuracy or completeness of information in this document.
[2023-12-10 11:10] LABS: Age Gdln ACOG Testing Note (.); HPV Aptima Negative (Negative); IGP, Aptima HPV, rfx 16/18,45 Note (.)
== END 2023-12-06 23:34 | disposition home or self-care (01) ==
LOC: LAB 23:33
PROVIDERS: PCP Nurse Practitioner; Visit Provider Nurse Practitioner
DX: Z01.419 Encounter for gynecological examination (general) (routine) without abnormal findings (principal)
CPT/HCPCS: 88175

== ENCOUNTER 2024-03-15 11:35 | Outpatient (OUT) | payer OTHER, SELFPAY ==
--- OUTSIDE RECORDS SUMMARY | 2024-03-15 11:55 | XMS_ITS | CCD ---
Author Organization [facility] Care Team Providers Care Face Worker Name Role Phone ALGHOEVELINEANI, MOHAMAD Attending Unavailable AICHHOLZ, VIDEO EDITING INTERN GAYLA Primary Care Unavailable ALGHOTHANI, MOHAMAD Consulting Unavailable ALGHOTHANI, MOHAMAD Admitting Unavailable AICHHOLZ, VIDEO EDITING INTERN GAYLA Primary Care Unavailable AICHHOLZ, VIDEO EDITING INTERN GAYLA Admitting Unavailable AICHHOLZ, VIDEO EDITING INTERN GAYLA Attending Unavailable AICHHOLZ, VIDEO EDITING INTERN GAYLA Consulting Unavailable ALGHOTHANI, MOHAMAD Attending Unavailable AICHHOLZ, VIDEO EDITING INTERN GAYLA Primary Care Unavailable ALGHOTHANI, MOHAMAD Consulting Unavailable ALGHOTHANI, MOHAMAD Admitting Unavailable ALGHOTHANI, MOHAMAD Attending Unavailable AICHHOLZ, VIDEO EDITING INTERN GAYLA Primary Care Unavailable ALGHOTHANI, MOHAMAD Consulting Unavailable ALGHOTHANI, MOHAMAD Admitting Unavailable ALEX, INA Attending Unavailable ALEX, INA Admitting Unavailable ALEX, INA Consulting Unavailable AICHHOLZ, VIDEO EDITING INTERN GAYLA Primary Care Unavailable AICHHOLZ, VIDEO EDITING INTERN GAYLA Admitting Unavailable AICHHOLZ, VIDEO EDITING INTERN GAYLA Attending Unavailable AICHHOLZ, VIDEO EDITING INTERN GAYLA Consulting Unavailable AICHHOLZ, VIDEO EDITING INTERN GAYLA Primary Care Unavailable AICHHOLZ, VIDEO EDITING INTERN GAYLA Admitting Unavailable AICHHOLZ, VIDEO EDITING INTERN GAYLA Attending Unavailable AICHHOLZ, VIDEO EDITING INTERN GAYLA Consulting Unavailable AICHHOLZ, VIDEO EDITING INTERN GAYLA Primary Care Unavailable [facility] GROUNDS AND NURSERY SPECIALIST, Gayla Unavailable Jim Deleon MD Primary Care Provider [phone] AICHHOLZ, GAYLA Attending Unavailable AICHHOLZ, GAYLA Attending Unavailable AICHHOLZ, GAYLA Attending Unavailable AICHHOLZ, GAYLA Attending Unavailable [facility] GROUNDS AND NURSERY SPECIALIST, Gayla Unavailable Jim Deleon MD Primary Care Provider [phone] [facility] GROUNDS AND NURSERY SPECIALIST, Gayla Unavailable CARL WILLIS Attending Unavailable DANTE HAND Attending Unavailable Isabela BOWIE, Lara Amos Attending Unavailable Isabela BOWIE, Andjeanne Amos Attending Unavailable [facility], [facility] Primary Care Unava ilable Isabela BOWIE, Andrius Amos Attending Unavailable Giedraul BOWIE, Andrius Amos Attending Unavailable Isabela BOWIE, Andrius Amos Attending Unavailable Isabela BOWIE, Francorius Amos Attending Unavailable [facility], [facility] Primary Care Unava ilable Edilson PA-C, Dasha Pedro Attending Unavailab le Unavailable, Physician Primary Care Unavailab le Edilson PA-C, Dasha Pedro Attending Unavailab le Unavailable, Physician Primary Care Unavailab le Edilson PA-C, Dasha Pedro Attending Unavailab le Tylor KAMARA MD, Delfino Holder U navailable [facility], [facility] Primary Care Unava ilable Edilson PA-C, Dasha Pedro Attending Unavailab le [facility], [facility] Primary Care Unava ilable Edilson PA-C, Dasha Pedro Attending Unavailab le Allergies Allergy Classification Reported Allergen(s) Allergy Type Date of Onset Reaction(s) Facility (11 sources) Pregabalin; Translations: [PREGABALIN] Propensity to adverse reactions 3 [facility] (1 source) No Known Medication Allergies; Translations: [No Known Medication Allergies] Propensity to adverse reactions to drug (disorder) [facility] Repository Medications Current Medications Medication Drug [...] 0 Active atorvastatin 20 mg oral tablet (11 sources) HMG-CoA Reductase Inhibitor Start: 07-27-2023 End: 03-20-2024 take 1 tablet by mouth at bedtime atorvastatin (Lipitor) 20 MG tablet Indications: Mixed hyperlipidemia (CMS/HCC) Take 1 tablet (20 mg) by mouth at bedtime 90 tablet 1 12/21/2023 03/20/2024 Active Start: 03-23-2023 End: 06-21-2023 take 1 tablet [...] 0 04/07/2023 Active Blood Glucose Monitoring Suppl (True Metrix Meter) w/Device kit (2 sources) Start: 01-27-2024 End: 01-26-2025 Blood Glucose Monitoring Suppl (True Metrix Meter) w/Device kit Indications: Controlled type 2 diabetes mellitus without complication, without long-term current use of insulin (CMS/HCC) 1 each Daily 1 kit 01/27/2024 01/26/2025 Active End: 01-27-[address] (True Metrix Meter) w/Device kit 1 each Daily 01/27/2024 Discontinued (Reorder) brompheniramine maleate 0.4 mg/ml / dextromethorphan hydrobromide 2 mg/ml / pseudoephedrine hydrochloride 6 mg/ml oral solution (2 sources) alpha-Adrenergic Agonist, Uncompetitive B-rtmluc-O-aspartate Receptor Antagonist, Sigma-1 Agonist Start: 04-07-2023 End: 04-14-2023 take 10 mL by mouth four times daily as needed for cough ablhqjnvbcojnhu-drhuekazyeinfxz-JC (Bromfed DM) 30-2-10 MG/5ML syrup Indications: COPD [...] crush, chew, or split. . 0 Active fluticasone propionate 0.05 mg/actuat metered dose nasal spray (9 sources) Corticosteroid Start: 07-27-2023 End: 01-20-2024 take 2 spray(s ) nasal route once daily fluticasone (Flonase) 50 MCG/ACT nasal spray Indications: ETD (Eustachian tube dysfunction), left Administer 2 sprays into each nostril Daily Shake gently. Before first use, prime pump. After use, clean tip and replace cap. 16 g 3 12/21/2023 Active 30 actuat fluticasone furoate 0.1 mg/actuat / umeclidinium 0.0625 mg/actuat / vilanterol 0.025 mg/actuat dry powder inhaler (12 sources) Anticholinergic, Corticosteroid, beta2-Adrenergic Agonist Start: 07-08-2023 End: 03-21-2024 take 1 puff(s) by mouth once daily Pvyzptfigin-Xkqwzgnyl-Iijrrs (Trelegy Ellipta) 100-62.5-25 MCG/ACT aerosol powder Indications: Centrilobular emphysema (CMS/HCC) Inhale 1 puff Daily Rinse mouth after use 3 each 1 12/22/2023 03/21/2024 Active take 1 dose by inhal ation once daily Voulvoliurr-Hvnypcxrd-Dwauet (Trelegy El lipta) 100-62.5-25 MCG/ACT aerosol powder Inhale 1 Dose 1 (one) time each day. 0 Active lisinopril 5 mg oral tablet (11 sources) Angiotensin Converting Enzyme Inhibitor Start: 01-19-2023 End: 03-20-2024 take 1 tablet by mouth once daily lisinopril 5 MG tablet Indications: Controlled type 2 diabetes mellitus without complication, without long-term current use of insulin (CMS/HCC) Take 1 tablet (5 mg) by mouth Daily 90 tablet 1 12/21/2023 03/20/2024 Active loratadine 10 mg oral tablet (9 sources) Start: 07-27-2023 End: 03-20-2024 take 1 tablet by mouth once daily loratadine (Claritin) 10 MG tablet Indications: ETD (Eustachian tube dysfunction), left Take 1 tablet (10 mg) by mouth Daily 90 tablet 1 12/21/2023 03/20/2024 Active meloxicam 15 mg oral tablet (12 sources) Nonsteroidal Anti-inflammatory Drug Start: 03-23-2023 End: 04-24-2024 take 1 tablet by mouth once daily meloxicam (Mobic) 15 MG tablet Indications: Degeneration of intervertebral disc of lumbar 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 Take 1 tablet (15 mg) by mouth Daily 90 tablet 1 01/25/2024 04/24/2024 Active metFORMIN hydrochloride 500 mg oral tablet (10 sources) Biguanide Start: 07-27-2023 take 1 tablet by mouth at mealtime metFORMIN (Glucophage) 500 MG tablet Indications: Controlled type 2 diabetes mellitus without complication, without long-term current use of insulin (CMS/HCC) Take 1 tablet (500 mg) by mouth in the morning. Take with meals. 90 tablet 1 07/27/2023 Active Start: 01-25-2023 End: 04-25-2023 take 1 tablet by mouth at mealtime metFORMIN (Glucophage) 500 MG tablet Indications: Controlled type 2 diabetes mellitus without complication, without long-term current use of insulin (CMS/HCC) Take 1 tablet (500 mg) by mouth in the morning. Take with meals. 90 tablet 1 01/25/2023 04/25/2023 Active Multiple Vitamins-Minerals (CENTRUM ADULT PO) (6 sources) End: 12-21-2023 take 1 tablet by mouth once daily Multiple Vitamins-Minerals (CENTRUM ADULT PO) Take 1 tablet by mouth 1 (one) time each day. 12/21/2023 Discontinued (Therapy completed) take 1 tablet by mouth once bridget y Multiple Vitamins-Minerals (CENTRUM ADULT PO) Take 1 tablet by mouth 1 (one) time each day. Active take 1 tablet by mouth once bridget y Multiple Vitamins-Minerals (CENTRUM ADULT PO) Take 1 tablet by mouth 1 (one) time each day. 0 Active naloxone hydrochloride 40 mg/ml nasal spray (1 source) Opioid Antagonist Start: 05-19-2023 End: 12-06-2023 naloxone (Narcan) 4 mg/0.1 mL nasal spray Administer 4 mg into affected nostril(s) if needed for opioid reversal or respiratory depression 05/19/2023 12/06/2023 Discontinued (Therapy completed) omeprazole 40 mg delayed release oral capsule (11 sources) Proton Pump Inhibitor Start: 06-01-2023 End: 03-20-2024 take 1 capsule by mouth once daily omeprazole (PriLOSEC) [address] capsule Indications: Munoz's esophagus with esophagitis Take 1 capsule (40 mg) by mouth Daily 90 capsule 1 12/21/2023 03/20/2024 Active Start: 03-16-2023 End: 04-15-2023 take 1 capsule by mouth in the morning omeprazole (PriLOSEC) [address] capsule Indications: Munoz's esophagus with esophagitis Take 1 capsule (40 mg) by mouth in the morning. 30 capsule 2 03/16/2023 04/15/2023 Active tiZANidine 4 mg oral tablet (10 sources) Central alpha-2 Adrenergic Agonist take 1 tablet by mouth once tiZANidine (Zanaflex) 4 MG tablet Take 1 tablet by mouth every 12 (twelve) hours if needed for muscle spasms. Active traMADol hydrochloride 50 mg oral tablet (8 sources) Opioid Agonist traMADol (Ultram ) 50 MG tablet Take 50 mg by mouth every 12 (twelve) hours if needed for severe pain or moderate pain Active Completed/Discontinued Medications Medication Drug Class(es) Dates Sig (Normalized) Sig (Original) Blood Glucose Monitoring Suppl (Pip Blood Glucose Monitoring) device (10 sources) End: 01-27-2024 Blood Glucose Monitoring Suppl (Pip Blood Glucose Monitoring) device 1 Device Daily as needed. 01/27/2024 Discontinued (Therapy completed) Blood Glucose Mo nitoring Suppl (Pip Blood Glucose Monitoring) device 1 Device Daily as needed. Active Blood Glucose Mo nitoring Suppl (Pip Blood Glucose Monitoring) device 1 Device Daily as needed. 0 Active Blood Glucose Monitoring Sup pl (True Metrix Go Glucose Meter) w/Device kit (1 source) End: 01-27-2024 [address] Monitoring Sup [address] (True Metrix Go Glucose Meter) w/Device kit 1 each Daily 01/27/2024 Discontinued (Therapy completed) Problems Active Problems Problem Classification Problem Date Documented Date Episodic/Chronic Chronic obstructive pulmonary disease and bronchiectasis (20 sources) Acute exacerbation of chronic obstructive airways disease; Translations: [Chronic obstructive pulmonary disease with (acute) exacerbation] Onset: 01-25-2023 04-07-2023 Chronic Diabetes mellitus without complication (17 sources) Type 2 diabetes mellitus without complications; Translations: [Type 2 diabetes mellitus without complication] Onset: 09-11-2011 Chronic Disorders of lipid metabolism (13 sources) Hyperlipidemia; Translations: [Hyperlipidemia, unspecified] Onset: 03-16-2023 03-16-2023 Chronic Esophageal disorders (11 sources) Munoz's esophagus with esophagitis; Translations: [Munoz's esophagus without dysplasia] Onset: 03-16-2023 03-16-2023 Chronic Essential hypertension (6 sources) Essential (primary) hypertension; Translations: [ESSENTIAL PRIMARY HYPERTENSION] Onset: 06-10-2022 Chronic Hypertension with complications and secondary hypertension (2 sources) Hypertensive heart disease without heart failure; Translations: [Hypertensive heart disease without heart failure] Onset: 01-14-2024 Chronic Immunizations and screening for infectious disease (8 sources) Needs influenza immunization; Translations: [Encounter for immunization] Onset: 12-06-2023 12-06-2023 Episodic Other circulatory disease (8 sources) Thrombotic thrombocytopenic purpura; 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] Onset: 04-26-2023 04-26-2023 Chronic Other nervous system disorders (10 sources) Chronic pain; Translations: [Other chronic pain] Onset: 02-08-2023 02-08-2023 Chronic Other screening for suspected conditions (not mental disorders or infectious disease) (10 sources) Patient encounter status; Translations: [Encounter for screening mammogram for malignant neoplasm of breast] Onset: 12-06-2023 12-06-2023 Episodic Pleurisy; pneumothorax; pulmonary collapse (4 sources) Pleural effusion, not elsewhere classified; Translations: [PLEURAL EFFUSION NEC] Onset: 05-08-2022 Episodic Residual codes; unclassified (10 sources) Insomnia; Translations: [Other insomnia] Onset: 02-08-2023 02-08-2023 Chronic Spondylosis; intervertebral disc disorders; other back problems (12 sources) Degeneration of lumbar intervertebral disc; Translations: [Other intervertebral disc degeneration, lumbar region] Onset: 01-25-2023 01-25-2023 Chronic Substance-related disorders (10 sources) Tobacco dependence syndrome; Translations: [Nicotine dependence, unspecified, uncomplicated] Onset: 01-22-2023 01-22-2023 Chronic Unclassified (3 sources) OTH PERICARDIAL EFFUSION NONINFLAMM; Translations: [OTH PERICARDIAL EFFUSION NONINFLAMM] Onset: 01-08-2022 Unclassified (1 source) Other pericardial effusion (noninflammatory); Translations: [Other pericardial effusion (noninflammatory)] Onset: 06-10-2022 Past or Other Problems Problem Classification Problem Date Documented Da te Episodic/Chronic Influenza (8 sources) Influenza due to Influenza A virus; Translations: [Influenza due to other identified influenza virus with other respiratory manifestations] Onset: 04-09-2023 Resolved: 04-26-2023 04-26-2023 Episodic Other gastrointestinal disorders (8 sources) Chronic constipation; Translations: [Other constipation] Onset: 07-27-2023 07-27-2023 Episodic Other nutritional; endocrine; and metabolic disorders (4 sources) Abnormal weight loss; Translations: [ABNORMAL WEIGHT LOSS] Onset: 08-04-2021 Episodic Other nutritional; endocrine; and metabolic disorders (8 sources) Unintentional weight loss; Translations: [Abnormal weight loss] Onset: 04-26-2023 04-26-2023 Episodic Otitis media and related conditions (9 sources) Dysfunction of left eustachian tube; Translations: [Unspecified Eustachian tube disorder, left ear] Onset: 07-27-2023 07-27-2023 Episodic Jovita-; endo-; and myocarditis; cardiomyopathy (except that caused by tuberculosis or sexually transmitted disease) (12 sources) Pericardial effusion (noninflammatory); Translations: [Pericardial effusion] Onset: 10-16-2021 Episodic Residual codes; unclassified (8 sources) Family history of coronary arteriosclerosis; Translations: [Family history of ischemic heart disease and other diseases of the circulatory system] Onset: 04-26-2023 04-26-2023 Episodic Unclassified (1 source) OTH PERICARDIAL EFFUSION NONINFLAMM; Translations: [OTH PERICARDIAL EFFUSION NONINFLAMM] Onset: 01-05-2022 Unclassified (1 source) Other pericardial effusion (noninflammatory); Translations: [Other pericardial effusion (noninflammatory)] Onset: 01-14-2024 Results Test Name Value Interpretation Reference Range Facility Office Visiton 01-14-2024 Follow-up visit [id number] ReneJames flavio Ceballos 1960 F Date Provider Department Center 01/14/2024 [id number] WILLIS ROXY [facility] Family History Problem Relation Age of Onset Other Mother Heart attack Father Other Father Other Father Other Maternal Grandmother Family Status - Relation Status Age at Mother Father Maternal Grandmother Level of Service:93918 [place] OFFICE/OUTPATIENT ESTABLISHED MOD MDM [address] [facility] IGP,APTIMA HPV,AGE GDLNon AGE GDLN ACOG TESTING Note . [facility] Comment on above: TESTS RESULT FLAG U NITS REF RANGE LAB Clinician Provided Cytology Information Source.............Cervix;Endocervix Other..............Post Menopausal No. of containers..01 ThinPrep Vial Age Algo ACOG Radha... 30-65 01 FLAG LEGEND: L-Low Normal,H-High Normal,LL-Alert Low,HH-Alert High <-Panic Low,>-Panic High,A-Abnormal,AA-Critical Abnormal Performed at: 01 =[facility] [place] [place] [address] Amirah Barnett MD, HPV APTIMA Negative Negative [facility] Comment on above: This nucleic acid am plification test detects fourteen high- risk HPV types (16,18,31,33,35,39,45,51,52,56,58,59,66,68) without differentiation. Performed at: =G - [facility] [id number] Forklift Picker: Amirah Barnett MD, Phone: [phone] Performed at: - [facility] [id number] Forklift Picker: Amirah Barnett MD, Phone: [phone] IGP, APTIMA HPV, RFX 16/18,45 Note . [facility] Comment on above: TESTS RESULT FLAG UN ITS REF RANGE LAB DIAGNOSIS: 02 NEGATIVE FOR INTRAEPITHELIAL LESION OR MALIGNANCY. CELLULAR CHANGES ASSOCIATED WITH ATROPHY ARE PRESENT. Specimen adequacy: 02 Satisfactory for evaluation. Endocervical and/or squamous metaplastic cells (endocervical component) are present. Performed by: Dayanna Olson, Supervisor [facility] ([facility]) . 02 Note: Note 02 The Pap smear is a screening test designed to aid in the detection of premalignant and malignant conditions of the uterine cervix. It is not a diagnostic procedure and should not be used as the sole means of detecting cervical cancer. Both false-positive and false-negative reports do occur. Test Methodology: Note 02 This liquid based ThinPrep(R) pap test was screened with the use of an image guided system. HPV Genotype Reflex Note 02 Criteria not met, HPV Genotype not performed. FLAG LEGEND: L-Low Normal,H-High Normal,LL-Alert Low,HH-Alert High <-Panic Low,>-Panic High,A-Abnormal,AA-Critical Abnormal Performed at: 02 WB [facility] [place] [address] Amirah Barnett MD, BROOM-ALONE MENOPAUSAL CERVIX ENDOCERVIX [facility] Healthcare Provider Letteron 10-27-2023 Provider Letter ARCELIA Santos [address] [place] [address] Re: Stephan López Date of Visit: 10/26/2023 Dear Gayla PANIAGUA, This patient was recently seen in the neurosurgical office. Please see attached note for further details. Let me know if you have any questions or concerns. Sincerely, MICHELLE Engle Providers: Gwendolyn Salamanca The following document(s) were included in the letter: October 26, 2023 14:35:44 EDT - (10/26/2023) Neurosurgery Office Visit Note Normal [facility] Neurosurgery Office/Clinic N oteon 10-26-2023 Neurosurgery [...] or weakness. She continues to follow with [facility] pain management and has undergone previous L5-S1 transforaminal SVITLANA 05/10/2023 with approximately 2 to 3 weeks incomplete benefit. She has also undergone bilateral sacroiliac joint injections. She is utilizing meloxicam and tizanidine once daily for pain as well as tramadol on rare occasion. Recent imaging (provider interpretation): MRI lumbar 08/03/2023 at [facility] reveals evidence of L3-5 posterior spinal [...] facet arthropathy. Lumbar flexion/extension x-rays 04/30/2023 at [facility] reveals straightening of lumbar lordosis. Evidence of L3-5 posterior spinal fusion with instrumentation and interbody fusion L4-5. No evidence of hardware fracture or pullout. Patient found to have degenerative disc disease L2-3 and L5-S1. There is slight retrolisthesis L2-3 as well as unchanged anterior listhesis at her surgerized L4-5 segment. No evidence of dynamic instability. CT lumbar spine 02/03/2023 at [facility] reveals evidence of L3-5 posterior spinal [...] central/left paracentral (more content not included)... Normal [facility] Neurosurgery Office/Clinic N oteon 05-25-2023 Neurosurgery [...] undergone an L5-S1 transforaminal SVITLANA 05/10/2023 by [facility] pain management which did give her approximately 2 to 3 weeks of incomplete benefit. She is planned for bilateral sacroiliac joint injections in the near future. The patient has discontinued her LSO brace that continues her electromagnetic stimulator 8 hours/day. Recent imaging (provider interpretation): Lumbar flexion/extension x-rays 04/30/2023 at [facility] reveals straightening of lumbar lordosis. Evidence of L3-5 posterior spinal fusion with instrumentation and interbody fusion L4-5. No evidence of hardware fracture or pullout. Patient found to have degenerative disc disease L2-3 and L5-S1. There is slight retrolisthesis L2-3 as well as unchanged anterior listhesis at her surgerized L4-5 segment. No evidence of dynamic instability. CT lumbar spine 02/03/2023 at [facility] reveals evidence of L3-5 posterior spinal [...] imaging. CT lumbar spine 10/14/2022 at [facility] reveals evidence of L3-5 decompression and [...] which c (more content not included)... Normal [facility] INFLUENZA A AND B AGon 0 04-08-2023 INFLUENZA VIRUS A ANTIGEN Positive Abnormal [facility] Comment on above: NOTE: Live attenuate d influenza vaccine viruses can cause a positive result for a rapid influenza diagnostic test if administered up to 7 days prior to rapid testing. INFLUENZA VIRUS B ANTIGEN Negative [facility] Comment on above: Negative for Flu B p rotein antigen. Infection due to Flu B cannot be ruled out. Flu B antigen in the sample may be below the detection limit of the test. Interpretation and review of laboratory results Abnormal [facility] Healthcare 36on 03-19-2023 36 Please let her know her labs showed normal kidney function. Can continue lisinopril. Thank you Normal [facility] Telephoneon 03-19-2023 Telephone [id number] James López 1960 Date Provider Department Center 03/19/2023 DANTE BAIG [facility] Family History Problem Relation Age of Onset Other Mother Heart attack Father Other Father Other Father Other Maternal Grandmother Family Status - Relation Status Age at Mother Father Maternal Grandmother Normal [facility] Office Visiton 01-19-2023 Follow-up visit [id number] James López 1960 Provider Department Center 01/19/2023 DANTE BAIG [facility] Family History Problem Relation Age of Onset Other Mother Heart attack Father Other Father Other Father Other Maternal Grandmother Family Status - Relation Status Age at Mother Father Maternal Grandmother Level of Service:81748 [place] OFFICE/OUTPATIENT ESTABLISHED LOW MDM 20-29 MIN Reason for Visit and Comments: Follow-up [821000] Hypertension [059124] Normal [facility] PROF CHEM 8 (BAS METB)on Anion gap [Moles/Vol] 12.9 mmol/L Normal [facility] Comment on above: Performed By: #### C BC #### [facility] [address] [place] [address] Dr. Yariel Herrera Calcium [Mass/Vol] 9.0 mg/dL Normal 8.5-10.1 [facility] Comment on above: Performed By: #### C BC #### [facility] [address] [address] [address] Yariel Herrera Chloride [Moles/Vol] 106 mmol/L Normal 98-107 [facility] Comment on above: Performed By: #### C BC #### [facility] [address] [address] [address] Yariel Herrera CO2 [Moles/Vol] 28.3 mmol/L Normal 21.0-32.0 [facility] Comment on above: Performed By: #### C BC #### [facility] [address] [address] [address] Yariel Herrera Creatinine [Mass/Vol] 0.81 mg/dL Normal 0.55-1.02 [facility] Comment on above: Performed By: #### C BC #### [facility] [address] [place] [address] Dr. Yariel Herrera EGFR-AF IVORIAN >60 Normal >=60 [facility] Comment on above: Performed By: #### C BC #### [facility] [address] [address] [address] Yariel Herrera EGFR-NON AF IVORIAN >60 Normal >=60 [facility] Comment on above: Performed By: #### C BC #### [facility] [address] [place] [address] Dr. Yariel Herrera Glucose [Mass/Vol] 103 mg/dL Normal 74-106 [facility] Comment on above: Performed By: #### C BC #### [facility] [address] [place] [address] Dr. Yariel Herrera Potassium [Moles/Vol] 4.2 mmol/L Normal 3.5-5.1 [facility] Comment on above: Performed By: #### C BC #### [facility] [address] [place] [address] Dr. Yariel Herrera Sodium [Moles/Vol] 143 mmol/L Normal 136-145 [facility] Comment on above: Performed By: #### C BC #### [facility] [address] [place] [address] Dr. Yariel Herrera Urea nitrogen [Mass/Vol] 9.0 mg/dL Normal 7.0-18.0 [facility] Comment on above: Performed By: #### C BC #### [facility] [address] [place] [address] Dr. Yariel Herrera Urea nitrogen/Creatinine [Mass ratio] 11.1 mg/mg Normal [facility] Comment on above: Performed By: #### C BC #### [facility] [address] [address] [address] Yariel Herrera ECHOCARDIO M/2D COMPLETEon 0 05-08-2022 ECHOCARDIO M/2D COMPLETE Patient: STEPHAN LÓPEZ Exam Date: 05/08/2022 : 1960 Gender:F Ordering : CARL WILLIS Admission #: [id number] Family : GAURAV MARTINEZ [facility] Order #: [id number] CLICK HERE TO VIEW EXAM ECHOCARDIOGRAM REPORT [...] M.D. on 05/08/2022 at 14:20 Normal [facility] ABHINAV by IFAon 01-08-2022 Antinuclear Antibodies, IFA Negative Normal [facility] Comment on above: Result Comment: Nega tive <1:80 Borderline 1:80 Positive >1:80 ICAP nomenclature: AC-0 For more information about Hep-2 cell patterns use ANApatterns.org, the official website for the International Consensus on Antinuclear Antibody (ABHINAV) Patterns (ICAP). Performed By: #### A FATIMAHA #### [facility] [address] [place] [address] Dr. Yariel Herrera CBC AUTO DIFFon 01-05-2022 BASO # 0.1 103/ul Normal 0.0-0.1 [facility] Comment on above: Performed By: #### C BC #### [facility] [address] [place] [address] Dr. Yariel Herrera Basophils/100 WBC (Bld) 0.6 % Normal 0.2-2.0 [facility] Comment on above: Performed By: #### C BC #### [facility] [address] [place] [address] Dr. Yariel Herrera EO # 0.2 103/ul Normal 0.0-0.7 [facility] Comment on above: Performed By: #### C BC #### [facility] [address] [place] [address] Dr. Yariel Herrera Eosinophils/100 WBC (Bld) 1.4 % Normal 0.9-7.0 [facility] Comment on above: Performed By: #### C BC #### [facility] [address] [place] [address] Dr. Yariel Herrera Erythrocyte distribution width (RBC) [Ratio] 13.6 % Normal 11.0-15.0 [facility] Comment on above: Performed By: #### C BC #### [facility] [address] [place] [address] Dr. Yariel Herrera Hematocrit (Bld) [Volume fraction] 46.6 % Normal 36.0-48.0 [facility] Comment on above: Performed By: #### C BC #### [facility] [address] [place] [address] Dr. Yariel Herrera Hemoglobin (Bld) [Mass/Vol] 15.4 g/dL Normal 12.0-16.0 [facility] Comment on above: Performed By: #### C BC #### [facility] [address] [place] [address] Dr. Yariel Herrera IG # 0.03 10e3/ul Normal 0.00-0.03 [facility] Comment on above: Performed By: #### C BC #### [facility] [address] [place] [address] Dr. Yariel Herrera IG % 0.2 % Normal 0.0-0.5 [facility] Comment on above: Performed By: #### C BC #### [facility] [address] [place] [address] Dr. Yariel Herrera LYMPH # 4.2 103/ul Critically high 1.2-3.8 [facility] Comment on above: Performed By: #### C BC #### [facility] [address] [place] [address] Dr. Yariel Herrera Lymphocytes/100 WBC (Bld) 31.3 % Normal 20.5-60.0 [facility] Comment on above: Performed By: #### C BC #### [facility] [address] [place] [address] Dr. Yariel Herrera MANUAL DIFF REQ NO Normal [facility] Comment on above: Performed By: #### C BC #### [facility] [address] [place] [address] Dr. Yariel Herrera MCH (RBC) [Entitic mass] 31.6 pg Normal 26.7-34.0 [facility] Comment on above: Performed By: #### C BC #### [facility] [address] [place] [address] Dr. Yariel Herrera MCHC (RBC) [Mass/Vol] 33.0 g/dL Normal 29.9-35.2 [facility] Comment on above: Performed By: #### C BC #### [facility] [address] [place] [address] Dr. Yariel Herrera MCV (RBC) [Entitic vol] 95.7 fL Normal 81.0-99.0 [facility] Comment on above: Performed By: #### C BC #### [facility] [address] [address] [address] Yariel Herrera MONO # 0.9 103/ul Critically high 0.3-0.8 [facility] Comment on above: Performed By: #### C BC #### [facility] [address] [place] [address] Dr. Yariel Herrera Monocytes/100 WBC (Bld) 6.8 % Normal 1.7-12.0 [facility] Comment on above: Performed By: #### C BC #### [facility] [address] [place] [address] Dr. Yariel Herrera NEUT # 8.0 103/ul Critically high 1.4-6.5 [facility] Comment on above: Performed By: #### C BC #### [facility] [address] [place] [address] Dr. Yariel Herrera Neutrophils/100 WBC (Bld) 59.7 % Normal 43.0-75.0 [facility] Comment on above: Performed By: #### C BC #### [facility] [address] [place] [address] Dr. Yariel Herrera Platelet mean volume (Bld) [Entitic vol] 10.7 fL Normal 9.5-13.5 [facility] Comment on above: Performed By: #### C BC #### [facility] [address] [place] [address] Dr. Yariel Herrera PLT 340 103/ul Normal 150-450 [facility] Comment on above: Performed By: #### C BC #### [facility] [address] [place] [address] Dr. Yariel Herrera RBC 4.87 106/ul Normal 4.20-5.40 [facility] Comment on above: Performed By: #### C BC #### [facility] [address] [place] [address] Dr. Yariel Herrera WBC 13.4 103/ul Critically high 4.0-11.0 [facility] Comment on above: Performed By: #### C BC #### [facility] [address] [place] [address] Dr. Yariel Herrera FREE T4on 01-05-2022 Free T4 [Mass/Vol] 1.06 ng/dL Normal 0.76-1.46 [facility] Comment on above: Performed By: #### C BC #### [facility] [address] [place] [address] Dr. Yariel Herrera PROF 14(COMP METB)on 022 Albumin [Mass/Vol] 3.9 g/dL Normal 3.4-5.0 [facility] Comment on above: Performed By: #### C MP, TSH #### [facility] [address] [place] [address] Dr. Yariel Herrera Albumin/Globulin [Mass ratio] 1.1 {ratio} Normal [facility] Comment on above: Performed By: #### C MP, TSH #### [facility] [address] [place] [address] Dr. Yariel Herrera ALP [Catalytic activity/Vol] 99 U/L Normal 46-116 [facility] Comment on above: Performed By: #### C MP, TSH #### [facility] [address] [place] [address] Dr. Yariel Herrera ALT [Catalytic activity/Vol] 17 U/L Normal 14-59 [facility] Comment on above: Performed By: #### C MP, TSH #### [facility] [address] [place] [address] Dr. Yariel Herrera Anion gap [Moles/Vol] 10.1 mmol/L Normal [facility] Comment on above: Performed By: #### C MP, TSH #### [facility] [address] [place] [address] Dr. Yariel Herrera AST [Catalytic activity/Vol] 14 U/L Critically low 15-37 [facility] Comment on above: Performed By: #### C MP, TSH #### [facility] [address] [address] [address] Yariel Herrera Bilirubin [Mass/Vol] 0.3 mg/dL Normal 0.2-1.0 [facility] Comment on above: Performed By: #### C MP, TSH #### [facility] [address] [address] [address] Yariel Herrera Calcium [Mass/Vol] 9.4 mg/dL Normal 8.5-10.1 [facility] Comment on above: Performed By: #### C MP, TSH #### [facility] [address] [place] [address] Dr. Yariel Herrera Chloride [Moles/Vol] 103 mmol/L Normal 98-107 [facility] Comment on above: Performed By: #### C MP, TSH #### [facility] [address] [place] [address] Dr. Yariel Herrera CO2 [Moles/Vol] 30.9 mmol/L Normal 21.0-32.0 [facility] Comment on above: Performed By: #### C MP, TSH #### [facility] [address] [place] [address] Dr. Yariel Herrera Creatinine [Mass/Vol] 0.88 mg/dL Normal 0.55-1.02 [facility] Comment on above: Performed By: #### C MP, TSH #### [facility] [address] [place] [address] Dr. Yariel Herrera EGFR-AF IVORIAN >60 Normal >=60 [facility] Comment on above: Performed By: #### C MP, TSH #### [facility] [address] [place] [address] Dr. Yariel Herrera EGFR-NON AF IVORIAN >60 Normal >=60 [facility] Comment on above: Performed By: #### C MP, TSH #### [facility] [address] [place] [address] Dr. Yariel Herrera Globulin (S) [Mass/Vol] 3.5 g/dL Normal [facility] Comment on above: Performed By: #### C MP, TSH #### [facility] [address] [place] [address] Dr. Yariel Herrera Glucose [Mass/Vol] 117 mg/dL Critically high 74-106 [facility] Comment on above: Performed By: #### C MP, TSH #### [facility] [address] [place] [address] Dr. Yariel Herrera Potassium [Moles/Vol] 4.0 mmol/L Normal 3.5-5.1 [facility] Comment on above: Performed By: #### C MP, TSH #### [facility] [address] [place] [address] Dr. Yariel Herrera Protein [Mass/Vol] 7.4 g/dL Normal 6.4-8.2 [facility] Comment on above: Performed By: #### C MP, TSH #### [facility] [address] [place] [address] Dr. Yariel Herrera Sodium [Moles/Vol] 140 mmol/L Normal 136-145 [facility] Comment on above: Performed By: #### C MP, TSH #### [facility] [address] [place] [address] Dr. Yariel Herrera Urea nitrogen [Mass/Vol] 18.0 mg/dL Normal 7.0-18.0 [facility] Comment on above: Performed By: #### C MP, TSH #### [facility] [address] [place] [address] Dr. Yariel Herrera Urea nitrogen/Creatinine [Mass ratio] 20.5 mg/mg Normal [facility] Comment on above: Performed By: #### C MP, TSH #### [facility] [address] [place] [address] Dr. Yariel Herrera TSHon 01-05-2022 TSH 1.380 uIU/mL Normal 0.358-3.740 [facility] Comment on above: Performed By: #### C MP, TSH #### [facility] [address] [address] [address] Yariel Herrera GLYCOHEMOGLOBIN A1Con 2021 ADA RECOMMENDATION SEE BELOW Normal [facility] Comment on above: Result Comment: ADA RECOMMENDED LIMIT 4.0 - 6.0 ADA THERAPEUTIC TARGET < 7.0 ACTION SUGGESTED > 7.0 Performed By: #### A 1C #### [facility] [address] [address] [address] Yariel Herrera Glucose [Mass/Vol] 137 mg/dL Normal [facility] Comment on above: Performed By: #### A 1C #### [facility] [address] [address] [address] Yariel Herrera HbA1c (Bld) [Mass fraction] 6.4 % Critically high 4.5-6.2 [facility] Comment on above: Performed By: #### A 1C #### [facility] [address] [address] [address] Yariel Herrera ECHOCARDIO M/2D COMPLETEon 0 10-16-2021 ECHOCARDIO M/2D COMPLETE Patient: STEPHAN LÓPEZ Exam Date: 10/16/2021 : 1960 Gender:F Ordering : CARL RAZOCHRISTINEROBE Admission #: [id number] Family : Order #: [id number] CLICK HERE TO VIEW EXAM ECHOCARDIOGRAM REPORT [...] M.D. on 10/16/2021 at 17:12 Normal [facility] ECHOCARDIO M/2D COMPLETEon 0 09-16-2021 ECHOCARDIO M/2D COMPLETE Patient: STEPHAN LÓPEZ Exam Date: 09/16/2021 : 1960 Gender:F Ordering : GAURAV MARTINEZ [facility] Admission #: [id number] Family : Order #: [id number] CLICK HERE TO VIEW EXAM ECHOCARDIOGRAM REPORT [...] M.D. on 09/17/2021 at 13:02 Normal [facility] CBC AUTO DIFFon 08-04-2021 BASO # 0.1 103/ul Normal 0.0-0.1 [facility] Comment on above: Performed By: #### C BC #### [facility] [address] [place] [address] Dr. Yariel Herrera Basophils/100 WBC (Bld) 0.6 % Normal 0.2-2.0 [facility] Comment on above: Performed By: #### C BC #### [facility] [address] [place] [address] Dr. Yariel Herrera EO # 0.1 103/ul Normal 0.0-0.7 [facility] Comment on above: Performed By: #### C BC #### [facility] [address] [place] [address] Dr. Yariel Herrera Eosinophils/100 WBC (Bld) 0.9 % Normal 0.9-7.0 [facility] Comment on above: Performed By: #### C BC #### [facility] [address] [place] [address] Dr. Yariel Herrera Erythrocyte distribution width (RBC) [Ratio] 13.8 % Normal 11.0-15.0 [facility] Comment on above: Performed By: #### C BC #### [facility] [address] [place] [address] Dr. Yariel Herrera Hematocrit (Bld) [Volume fraction] 47.1 % Normal 36.0-48.0 [facility] Comment on above: Performed By: #### C BC #### [facility] [address] [place] [address] Dr. Yariel Herrera Hemoglobin (Bld) [Mass/Vol] 15.2 g/dL Normal 12.0-16.0 [facility] Comment on above: Performed By: #### C BC #### [facility] [address] [place] [address] Dr. Yariel Herrera IG # 0.04 10e3/ul Critically high 0.00-0.03 [facility] Comment on above: Performed By: #### C BC #### [facility] [address] [place] [address] Dr. Yariel Herrera IG % 0.3 % Normal 0.0-0.5 [facility] Comment on above: Performed By: #### C BC #### [facility] [address] [place] [address] Dr. Yariel Herrera LYMPH # 3.7 103/ul Normal 1.2-3.8 [facility] Comment on above: Performed By: #### C BC #### [facility] [address] [place] [address] Dr. Yariel Herrera Lymphocytes/100 WBC (Bld) 30.6 % Normal 20.5-60.0 [facility] Comment on above: Performed By: #### C BC #### [facility] [address] [place] [address] Dr. Yariel Herrera MANUAL DIFF REQ NO Normal [facility] Comment on above: Performed By: #### C BC #### [facility] [address] [place] [address] Dr. Yariel Herrera MCH (RBC) [Entitic mass] 32.0 pg Normal 26.7-34.0 [facility] Comment on above: Performed By: #### C BC #### [facility] [address] [place] [address] Dr. Yariel Herrera MCHC (RBC) [Mass/Vol] 32.3 g/dL Normal 29.9-35.2 [facility] Comment on above: Performed By: #### C BC #### [facility] [address] [place] [address] Dr. Yariel Herrera MCV (RBC) [Entitic vol] 99.2 fL Critically high 81.0-99.0 [facility] Comment on above: Performed By: #### C BC #### [facility] [address] [address] [address] Yariel Herrera MONO # 0.9 103/ul Critically high 0.3-0.8 [facility] Comment on above: Performed By: #### C BC #### [facility] [address] [address] [address] Yariel Herrera Monocytes/100 WBC (Bld) 7.4 % Normal 1.7-12.0 [facility] Comment on above: Performed By: #### C BC #### [facility] [address] [address] [address] Yariel Herrera NEUT # 7.3 103/ul Critically high 1.4-6.5 [facility] Comment on above: Performed By: #### C BC #### [facility] [address] [place] [address] Dr. Yariel Herrera Neutrophils/100 WBC (Bld) 60.2 % Normal 43.0-75.0 [facility] Comment on above: Performed By: #### C BC #### [facility] [address] [place] [address] Dr. Yariel Herrera Platelet mean volume (Bld) [Entitic vol] 11.7 fL Normal 9.5-13.5 [facility] Comment on above: Performed By: #### C BC #### [facility] [address] [place] [address] Dr. Yariel Herrera PLT 330 103/ul Normal 150-450 [facility] Comment on above: Performed By: #### C BC #### [facility] [address] [place] [address] Dr. Yariel Herrera RBC 4.75 106/ul Normal 4.20-5.40 [facility] Comment on above: Performed By: #### C BC #### [facility] [address] [address] [address] Yariel Herrera WBC 12.1 103/ul Critically high 4.0-11.0 [facility] Comment on above: Performed By: #### C BC #### [facility] [address] [place] [address] Dr. Yariel Herrera FREE T3on 08-04-2021 FREE T3 2.46 pg/mlL Normal 2.18-3.98 [facility] Comment on above: Performed By: #### C BC #### [facility] [address] [place] [address] Dr. Yariel Herrera FREE T4on 08-04-2021 Free T4 [Mass/Vol] 1.08 ng/dL Normal 0.76-1.46 [facility] Comment on above: Performed By: #### F T4 #### [facility] [address] [place] [address] Dr. Yariel Herrera PROF 14(COMP METB)on 022 Albumin [Mass/Vol] 4.2 g/dL Normal 3.4-5.0 [facility] Comment on above: Performed By: #### C BC #### [facility] [address] [place] [address] Dr. Yariel Herrera Albumin/Globulin [Mass ratio] 1.2 {ratio} Normal [facility] Comment on above: Performed By: #### C BC #### [facility] [address] [place] [address] Dr. Yariel Herrera ALP [Catalytic activity/Vol] 87 U/L Normal 46-116 [facility] Comment on above: Performed By: #### C BC #### [facility] [address] [place] [address] Dr. Yariel Herrera ALT [Catalytic activity/Vol] 25 U/L Normal 14-59 [facility] Comment on above: Performed By: #### C BC #### [facility] [address] [place] [address] Dr. Yariel Herrera Anion gap [Moles/Vol] 13.3 mmol/L Normal [facility] Comment on above: Performed By: #### C BC #### [facility] [address] [place] [address] Dr. Yariel Herrera AST [Catalytic activity/Vol] 15 U/L Normal 15-37 [facility] Comment on above: Performed By: #### C BC #### [facility] [address] [address] [address] Yariel Herrera Bilirubin [Mass/Vol] 0.5 mg/dL Normal 0.2-1.0 [facility] Comment on above: Performed By: #### C BC #### [facility] [address] [address] [address] Yariel Herrera Calcium [Mass/Vol] 9.6 mg/dL Normal 8.5-10.1 [facility] Comment on above: Performed By: #### C BC #### [facility] [address] [address] [address] Yariel Herrera Chloride [Moles/Vol] 103 mmol/L Normal 98-107 [facility] Comment on above: Performed By: #### C BC #### [facility] [address] [place] [address] Dr. Yariel Herrera CO2 [Moles/Vol] 28.9 mmol/L Normal 21.0-32.0 [facility] Comment on above: Performed By: #### C BC #### [facility] [address] [address] [address] Yariel Herrera Creatinine [Mass/Vol] 0.84 mg/dL Normal 0.55-1.02 [facility] Comment on above: Performed By: #### C BC #### [facility] [address] [place] [address] Dr. Yariel Herrera EGFR-AF IVORIAN >60 Normal >=60 [facility] Comment on above: Performed By: #### C BC #### [facility] [address] [address] [address] Yariel Herrera EGFR-NON AF IVORIAN >60 Normal >=60 [facility] Comment on above: Performed By: #### C BC #### [facility] [address] [place] [address] Dr. Yariel Herrera Globulin (S) [Mass/Vol] 3.4 g/dL Normal [facility] Comment on above: Performed By: #### C BC #### [facility] [address] [address] [address] Yariel Herrera Glucose [Mass/Vol] 111 mg/dL Critically high 74-106 [facility] Comment on above: Performed By: #### C BC #### [facility] [address] [address] [address] Yariel Herrera Potassium [Moles/Vol] 4.2 mmol/L Normal 3.5-5.1 [facility] Comment on above: Performed By: #### C BC #### [facility] [address] [address] [address] Yariel Herrera Protein [Mass/Vol] 7.6 g/dL Normal 6.4-8.2 [facility] Comment on above: Performed By: #### C BC #### [facility] [address] [address] [address] Yariel Herrera Sodium [Moles/Vol] 141 mmol/L Normal 136-145 [facility] Comment on above: Performed By: #### C BC #### [facility] [address] [address] [address] Yariel Herrera Urea nitrogen [Mass/Vol] 15.0 mg/dL Normal 7.0-18.0 [facility] Comment on above: Performed By: #### C BC #### [facility] [address] [address] [address] Yariel Herrera Urea nitrogen/Creatinine [Mass ratio] 17.9 mg/mg Normal [facility] Comment on above: Performed By: #### C BC #### [facility] [address] [address] [address] Yariel Herrera TSHon 08-04-2021 TSH 1.073 uIU/mL Normal 0.358-3.740 [facility] Comment on above: Performed By: #### C BC #### [facility] [address] [address] [address] Yariel Herrera TSH RANGE SEE BELOW Normal [facility] Comment on above: Result Comment: <0.3 4 UIU/ml HYPERTHYROID 0.34-5.60 UIU/ml EUTHYROID >5.60 UIU/ml HYPOTHYROID Performed By: #### C BC #### [facility] [address] [address] [address] Yariel Herrera Vital Signs Date Time Vital Sign Value Performing Clinician Judy carrillo 12-06-2023 10:35-0400 Body height 167.6 cm Gayla Michelle [employer]IST Work Phone: [facility] 12-06-2023 10:35-0400 Body mass index (BMI) [Ratio] 21.21 kg/m2 Gayla Michelle [employer] SPECIALIST Work Phone: [facility] 12-06-2023 10:35-0400 Body temperature 98.29 [degF] Gayla Michelle [employer] SPECIALIST Work Phone: [facility] 12-06-2023 10:35-0400 Body weight 59.6 kg Gayla Michelle [employer] SPECIALIST Work Phone: [facility] 12-06-2023 10:35-0400 Diastolic blood pressure 78 mm[Hg] Gayla Michelle [employer]IST Work Phone: [facility] 12-06-2023 10:35-0400 Heart rate 71 /min Gayla Alicez GROUNDS AND NURSERY SPECIALIST Work Phone: [facility] 12-06-2023 10:35-0400 Respiratory rate 18 /min Gayla Alicez GROUNDS AND NURSERY SPECIALIST Work Phone: [facility] 12-06-2023 10:35-0400 SaO2% (BldA) [Mass fraction] 100 % Gayla Michelle GROUNDS AND NURSERY SPECIALIST Work Phone: [facility] 12-06-2023 10:35-0400 Systolic blood pressure 118 mm[Hg] Gayla Michelle GROUNDS AND NURSERY SPECIALIST Work Phone: [facility] Healthcare Encounters Encounter Date Encounter Type Care Provider Facility Start: 03-03-2024 ambulatory Gayla lynch COAGULATION OPERATOR-VIDEO EDITING INTERN Facility:[facility] Start: 02-28-2024 End: 02-28-2024 ambulatory Gayla Martinez COAGULATION OPERATOR-VIDEO EDITING INTERN Facility: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 Start: 01-14-2024 End: 01-14-2024 [facility] Start: 12-28-2023 End: 12-28-2023 Refill Gayla Aichholz GROUNDS AND NURSERY SPECIALIST Work Phone: [facility] Comment on above: Degeneration of inte rvertebral disc of lumbar 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 (Primary Dx) Start: 12-22-2023 End: 12-22-2023 Refill Gayla Aichholz GROUNDS AND NURSERY SPECIALIST Work Phone: [facility] Comment on above: Centrilobular emphys mathew (CMS/HCC) Start: 12-21-2023 End: 12-21-2023 Refill Gayla Aichholz GROUNDS AND NURSERY SPECIALIST Work Phone: [facility] Comment on above: ETD (Eustachian tube dysfunction), left; Mixed hyperlipidemia (CMS/HCC); Centrilobular emphysema (CMS/HCC); Controlled type 2 diabetes mellitus without complication, without long-term current use of insulin (CMS/HCC); Munoz's esophagus with esophagitis Start: 12-06-2023 End: 12-06-2023 Bamboo flowsheet Gayla Aichholz GROUNDS AND NURSERY SPECIALIST Work Phone: [facility] Start: 12-06-2023 End: 12-10-2023 Bamboo flowsheet Gayla Aichholz GROUNDS AND NURSERY SPECIALIST Work Phone: [facility] Start: 12-06-2023 End: 12-10-2023 Clinisync Result Encounter Gayla Motleydouglas GROUNDS AND NURSERY SPECIALIST Work Phone: [facility] Unsolicited Start: 12-06-2023 End: 12-06-2023 Patient encounter procedure Gayla Martinez GROUNDS AND NURSERY SPECIALIST Work Phone: [facility] Start: 12-06-2023 End: 12-06-2023 Periodic preventive med est patient 40-64yrs Gayla Motleydouglas GROUNDS AND NURSERY SPECIALIST Work Phone: [facility] Comment on above: Encounter for well w stephany exam with routine gynecological exam (Primary Dx); Encounter for screening mammogram for malignant neoplasm of breast; Screening for cervical cancer; Needs flu shot Start: 12-06-2023 End: 12-06-2023 ambulatory GAYLA MARTINEZ Not Available Start: 11-22-2023 End: 11-22-2023 ambulatory Gayla Martinez COAGULATION OPERATOR-VIDEO EDITING INTERN Facility: [facility] Start: 10-26-2023 End: 10-26-2023 ambulatory Gayla Martinez COAGULATION OPERATOR-VIDEO EDITING INTERN [facility] Start: 09-27-2023 End: 09-27-2023 ambulatory Lara Mar MD Facility: [facility] Start: 08-30-2023 End: 08-30-2023 ambulatory Lara Mar MD Facility: [facility] Start: 07-27-2023 End: 07-27-2023 ambulatory GAYLA MARTINEZ Not Available Start: 07-05-2023 End: 07-05-2023 ambulatory Lara Mar MD Facility: [facility] Start: 06-14-2023 End: 06-14-2023 ambulatory Lara Mar MD Facility: [facility] Start: 05-25-2023 End: 05-25-2023 ambulatory Physician Unavailable Facility:[facility] Start: 05-10-2023 End: 05-10-2023 ambulatory Lara Mar MD Facility:[facility] Start: 05-04-2023 End: 05-04-2023 ambulatory Physician Unavailable Facility:[facility] Start: 04-26-2023 End: 04-26-2023 ambulatory GAYLA MARTINEZ Not Available Start: 04-08-2023 Clinisync Result Encounter Gayla Martinez GROUNDS AND NURSERY SPECIALIST Work Phone: [facility] Unsolicited Start: 04-08-2023 Clinisync Result Encounter Gayla Martinez GROUNDS AND NURSERY SPECIALIST Work Phone: [facility] Unsolicited Start: 04-07-2023 Refill Gayla Martinez GROUNDS AND NURSERY SPECIALIST Work Phone: [facility] Comment on above: COPD with exacerbati on (CMS/HCC) (Primary Dx) Start: 01-25-2023 End: 01-25-2023 ambulatory GAYLA MARTINEZ Not Available Start: 01-19-2023 End: 01-19-2023 ambulatory [facility] Start: 06-17-2022 End: 06-18-2022 ambulatory INA JOHNSON Facility:[facility] Start: 05-08-2022 End: 05-09-2022 ambulatory MOHDAVIDSON WILLIS Facility:[facility] Start: 01-05-2022 End: 01-06-2022 ambulatory MOHAMAD DANNIHOEVELINEANI Facility:[facility] Start: 11-05-2021 End: 11-06-2021 ambulatory VIDEO EDITING INTERN GAYLA MICHELLE Facility:[facility] Start: 10-16-2021 End: 10-17-2021 ambulatory MOHFINAD DANNIHOEVELINEANI Facility:[facility] Start: 09-16-2021 End: 09-17-2021 ambulatory VIDEO EDITING INTERN GAYLA ALICEZ Facility:[facility] Start: 08-04-2021 End: 08-05-2021 ambulatory VIDEO EDITING INTERN GAYLA MICHELLE Facility:[facility] Procedures Date Procedure Procedure Detail Performing Clinician Start: 12-06-2023 IGP,APTIMA HPV,AGE GDLN Gayla Martinez GROUNDS AND NURSERY SPECIALIST Work Phone: Start: 12-06-2023 Microscopic observat ion [Identifier] in Cervix by Cyto stain Gayla Martinez GROUNDS AND NURSERY SPECIALIST Work Phone: Start: 04-08-2023 [facility] INFLU[facility] B [facility] Gayla Michelle GROUNDS AND NURSERY SPECIALIST Work Phone: Start: 12-03-2022 Mammography Gayla jerome GROUNDS AND NURSERY SPECIALIST Work Phone: Start: 09-08-2021 Colonoscopy Gayla Ruiz justus GROUNDS AND NURSERY SPECIALIST Work Phone: Start: 04-20-2013 Colonoscopy Gayla jerome GROUNDS AND NURSERY SPECIALIST Work Phone: Plan of Treatment Date Care Activity Detail Author Start: 12-05-2026 Screening for malignant neoplasm of cervix [facility] Healthcare Start: 09-08-2026 Screening for malignant neoplasm of colon [facility] Start: 07-20-2025 Glaucoma screening Diabetes: R etinopathy Screening [facility] Start: 07-25-2024 Urine screening for protein Diabetes: Urine Protein Screening [facility] Start: 03-06-2024 End: 03-06-2024 Patient encounter procedure 03/06/2024 9:20 AM EST Office Visit [facility] [address] [place] [address] Gayla Martinez, ROSI [address] [place] [address] [facility] Start: 01-25-2024 Hemoglobin A1c measurement Diabetes: Hemoglobin A1C [facility] Start: 12-06-2023 End: 2025 MG Breast - bilateral Screening Bilateral screening mammogram Imaging Routine Encounter for screening mammogram for malignant neoplasm of breast Expected: 12/06/2023 (Approximate), Expires: 2025 [facility] Work Phone: Comment on above: Expected: 12/06/2023 (Approximate), Expires: 2025 Start: 12-06-2023 End: 12-05-2024 THIN PREP TIS PAP AND HR HPV DNA THIN PREP TIS PAP AND HR HPV DNA Pathology and Cytology Routine Encounter for well woman exam with routine gynecological exam Expected: 12/06/2023 (Approximate), Expires: 12/05/2024 [facility] Comment on above: Expected: 12/06/2023 (Approximate), Expires: 12/05/2024 Start: 12-06-2023 End: 12-06-2023 Patient encounter procedure 12/06/2023 10:30 AM EDT Procedure Visit [facility] [address] [place] [address] Gayla Martinez, ROSI [address] [place] [phone] Encounter for screening mammogram for malignant neoplasm of breast (Primary Dx) [facility] Comment on above: Encounter for screen ing mammogram for malignant neoplasm of breast (Primary Dx) Start: 12-04-2023 Screening for malignant neoplasm of breast Mammogram [facility] Healthcare Start: 10-24-2023 Influenza vaccination Influenza Vacc ine (#1) [facility] Start: 08-22-2023 Influenza vaccination Influenza Vacc ine (#1) [facility] Comment on above: Postponed from 10/23 (Other Medical Reasons) Start: 07-24-2023 Screening for malignant neoplasm of cervix Cervical Cancer Screening [facility] Comment on above: Postponed from 02/03 (Other Medical Reasons) Start: 05-30-2023 Urine screening for protein Diabetes: Urine Protein Screening [facility] Start: 04-26-2023 Glaucoma screening Diabetes: R etinopathy Screening [facility] Comment on above: Postponed from 02/03 (Other Medical Reasons) Start: 04-26-2023 End: 04-26-2023 Patient encounter procedure 04/26/2023 9:00 AM EST Office Visit [facility] [address] [place] [address] Gayla Martinez, GROUNDS AND NURSERY SPECIALIST [address] [place] [phone] [facility] Start: 03-05-2023 Hemoglobin A1c measurement Diabetes: Hemoglobin A1C [facility] Start: 02-03-1990 Screening for malignant neoplasm of cervix [facility] Start: 02-03-1981 Screening for malignant neoplasm of cervix Pap Smear [facility] Start: 1960 Screening for malignant neoplasm of colon [facility] Immunizations Immunization Date Immunization Notes Care Provider Shahzad grossman 12-06-2023 Influenza, injectabl e, Madin [place] Canine Kidney, preservative free, quadrivalent Gayla Aichholz GROUNDS AND NURSERY SPECIALIST Work Phone: [facility] 07-30-2023 zoster vaccine recombinant L tammy Aichholz GROUNDS AND NURSERY SPECIALIST Work Phone: [facility] 08-12-2022 zoster vaccine recombinant L tammy Aichholz GROUNDS AND NURSERY SPECIALIST Work Phone: [facility] 01-06-2022 Influenza, injectabl e, Madin [place] Canine Kidney, preservative free, quadrivalent Gayla Aichholz GROUNDS AND NURSERY SPECIALIST Work Phone: [facility] 01-06-2022 Pneumococcal Conjuga te PCV 20 Gayla Aichholz GROUNDS AND NURSERY SPECIALIST Work Phone: [facility] 01-06-2022 influenza virus vacc ine, unspecified formulation Gayla Aichholz GROUNDS AND NURSERY SPECIALIST Work Phone: [facility] 11-20-2013 influenza virus vacc ine, whole virus Gayla Aichholz GROUNDS AND NURSERY SPECIALIST Work Phone: [facility] 03-06-2013 influenza virus vacc ine, whole virus Gayla Aichholz GROUNDS AND NURSERY SPECIALIST Work Phone: [facility] 01-22-2012 pneumococcal polysaccharide vaccine, 23 valent Gayla Aichholz GROUNDS AND NURSERY SPECIALIST Work Phone: [facility] Payers Date Payer Category Payer Medicaid [employer] [place] [id number] 2022-Present [address] [place] [address] [id number] 2022 Private Health Insurance [id number] 1960 Unknown [id number] 2.16.840.1.183541.3.579.2. 593 1960 Unknown [id number] 2.16.840.1.075287.3.579.2. 593 1960 Unknown [id number] 2.16.840.1.136264.3.579.2. 593 1960 Unknown [id number] 2.16.840.1.946145.3.579.2. 593 1960 Unknown [id number] 2.16.840.1.093697.3.579.2. 593 1960 Unknown [id number] 2.16.840.1.401085.3.579.2. 593 1960 Unknown [id number] 2.16.840.1.871421.3.579.2. 593 1960 Unknown [id number] 2.16.840.1.418536.3.579.2. 1259 1960 Unknown [id number] 2.16.840.1.090577.3.579.2. 1259 1960 Unknown [id number] 2.16.840.1.207545.3.579.2. 1259 1960 Unknown [id number] 2.16.840.1.886317.3.579.2. 1259 1960 Unknown [id number] 2.16.840.1.729432.3.579.2. 196 1960 Unknown [id number] 2.16.840.1.082709.3.579.2. 196 1960 Unknown [id number] 2.16.840.1.011132.3.579.2. 196 1960 Unknown [id number] 2.16.840.1.289057.3.579.2. 196 1960 Unknown [id number] 2.16.840.1.008898.3.579.2. 196 1960 Unknown [id number] 2.16.840.1.706717.3.579.2. 196 1960 Unknown [id number] 2.16.840.1.517848.3.579.2. 196 1960 Unknown [id number] 2.16.840.1.931325.3.579.2. 1960 Unknown [id number] 2.16.840.1.876267.3.579.2. 1960 Unknown [id number] 2.16.840.1.059193.3.579.2. 1960 Unknown [id number] 2.16.840.1.381366.3.579.2. 196 1959 Unknown [id number] 1959 Unknown [id number] Social History Date Type Detail Facility Start: 01-25-2023 Tobacco smoking status [facility] Smokes t obacco daily [facility] History of tobacco use Cigarette Smoker [facility] Start: 01-25-2023 End: 04-19-2023 Cigarettes smoked current (pack per day) - Reported 0.5 [facility] Start: 01-25-2023 Tobacco use and exposure Smoke less tobacco non-user [facility] Start: 02-08-2023 End: 07-27-2023 Alcohol intake Lifetime non-drinker (finding) [facility] Start: 01-25-2023 End: 04-19-2023 Tobacco use panel [facility] Start: 1960 Sex Assigned At Not on file [facility] Do you belong to any clubs or organizations such as mandaen groups, unions, fraternal or athletic groups, or school groups? Yes [facility] Are you now , , , , never or living with a partner? [facility] How often to you hav e a drink containing alcohol? Never [facility] How many standard dr inks containing alcohol do you have on a typical day? Patient does not drink [facility] How hard is it for y ou to pay for the very basics like food, housing, medical care, and heating Somewhat hard [facility] Medical Equipment Procedure Code Equipment Code Equipment Origin al Text Equipment Identifier Dates [id number] End: 01-27-2024 Once a daily Use as instructed [id number] Start: 05-03-2023 End: 05-02-2024 1 each by Other route Daily Use as instructed [id number] Start: 01-27-2024 End: 05-06-2024 Clinical Notes 01-19-2023 to 01-14-2024 JALIL FORTUNE - 12/06/2023 10:30 AM EDTLtammy Martinez NP - 12/06/2023 10:30 AM EDT Note Date & Type Note Facility 01-14-2024 Note [facility] SUBJECTIVE HPI Stephan López is a 63 y.o. female here for 1 year follow up hypertension, pericardial effusion, and hyperlipidemia. Lisinopril was increased to 5mg daily at last apt in Dec 2022. She had routine labs w/ lipids in July 2023. She is doing great from cardiac standpoint. Denies chest pain, SOB, and palpitations. PMHx: HTN, pericardial effusion, HLD 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 Lumbar neuritis Lumbar spondylosis Spinal stenosis of lumbar region Pericardial effusion Benign essential HTN Munoz's esophagus with esophagitis Centrilobular emphysema (CMS/HCC) Chronic constipation Controlled type 2 diabetes mellitus without complication, without long-term current use of insulin (CMS/HCC) DDD (degenerative disc disease), lumbar Encounter for screening mammogram for malignant neoplasm of breast ETD (Eustachian tube dysfunction), left Family history of coronary arteriosclerosis Hyperlipidemia Idiopathic thrombotic thrombocytopenic purpura (CMS/HCC) Needs flu shot Other chronic pain Other insomnia Tobacco dependence syndrome Unintentional weight loss of more than 10 pounds in 90 days Past Medical History: Diagnosis Date Hyperlipidemia Hypertension Pericardial effusion Family History Problem Relation Name Age of Onset Other (pacemaker) Mother Heart attack Father Other (cabg) Father Other (cerbral embolism) Father Other (pacemaker) Maternal Grandmother Social History Tobacco Use Smoking status: Every Day Current packs/day: 1.00 Types: Cigarettes Smokeless tobacco: Never Substance Use Topics Alcohol use: Not Currently Drug use: Never Allergies Allergen Reactions Lyrica [Pregabalin] Hallucinations Review of Systems Musculoskeletal: Positive for arthritis, back pain and joint pain. All other systems reviewed and are negative. OBJECTIVE Visit Vitals BP 134/88 (BP Location: Left arm, Patient Position: Sitting) Pulse 75 Ht 1.676 m (5' 6 ) Wt 60.8 kg (134 lb) SpO2 98% BMI 21.63 kg/m??? Smoking Status Every Day BSA 1.68 m??? Medications: Current Outpatient Medications: amitriptyline (Elavil) 25 mg tablet, , Disp: , Rfl: atorvastatin (Lipitor) 20 mg tablet, Take 20 mg by mouth at bedtime., Disp: , Rfl: lisinopril 5 mg tablet, Take 1 tablet (5 mg) by mouth in the morning., Disp: 90 tablet, Rfl: 3 meloxicam (Mobic) 15 mg tablet, Take 15 mg by mouth in the morning., Disp: , Rfl: metFORMIN (Glucophage) 500 mg tablet, Take 500 mg by mouth with breakfast., Disp: , Rfl: omeprazole (PriLOSEC) [address] capsule, Take 40 mg by mouth before breakfast. Do not crush or chew., Disp: , Rfl: tiZANidine (Zanaflex) 4 mg tablet, Take 4 mg by mouth if needed each day., Disp: , Rfl: traMADol (Ultram) 50 mg tablet, Take 50 mg by mouth in the morning., Disp: , Rfl: Trelegy Ellipta 100-62.5-25 mcg blister with device, inhale 1 puff by mouth and INTO THE LUNGS once daily Rinse mouth after use, Disp: , Rfl: lisinopril 10 mg tablet, Take 1 tablet (10 mg) by mouth once daily as directed., Disp: 90 tablet, Rfl: 3 Physical Exam Vitals reviewed. Constitutional: Appearance: Normal [...] fat pad ASSESSMENT/PLAN: Diagnosis Plan 1. Benign hypertensive heart disease without congestive heart (more content not included)... [facility] 12-06-2023 History of Present illness Narrative Pt is still going to the pain clinic Pt had an epidural coddle sept. 30th Pt needs a refill on her omeprazole, nasal spray, trilogy (DISCOUNT DRUGMART) Fasting BS was 112 this morning PT ASKING IF YOU COULD DO A PRESCRIPTION FOR HER MULTI VITAMINS CENTRUM Images from the original note were not included. Stephan López is a 63 y.o. female presents with chief complaint of No chief complaint on file. HPI: Gynecologic Exam The patient's pertinent negatives include no genital itching, genital lesions, genital odor, genital rash, missed menses, pelvic pain, vaginal bleeding or vaginal discharge. She is not . Associated symptoms include back pain and joint pain. Pertinent negatives include no abdominal pain, anorexia, constipation, diarrhea, discolored urine, dysuria, fever, frequency, headaches, joint swelling, nausea, painful intercourse, rash, sore throat, urgency or vomiting. She is sexually active. No, her partner does not have an STD. She uses nothing for contraception. She is postmenopausal. SUBJECTIVE: MEDICATIONS: Current Outpatient Medications Medication Instructions atorvastatin (LIPITOR) 20 mg, Oral, Nightly Blood Glucose Monitoring Suppl (Pip Blood Glucose Monitoring) device 1 Device, Does not apply, Daily PRN fluticasone (Flonase) 50 MCG/ACT nasal spray 2 sprays, Each Nostril, Daily, Shake gently. Before first use, prime pump. After use, clean tip and replace cap. Jdzotzdktqy-Oclrxgafe-Ngwzer (Trelegy Ellipta) 100-62.5-25 MCG/ACT aerosol powder 1 puff, Inhalation, Daily, Rinse mouth after use glucose blood (Cool Blood Glucose Test Strips) test strip Once a daily Use as instructed Lancets misc 1 Device, Daily PRN lisinopril 5 mg, Oral, Daily loratadine (CLARITIN) 10 mg, Oral, Daily meloxicam (MOBIC) 15 mg, Daily metFORMIN (GLUCOPHAGE) 500 mg, Oral, Daily with breakfast Multiple Vitamins-Minerals (CENTRUM ADULT PO) 1 tablet, Daily omeprazole (PRILOSEC) 40 mg, Oral, Daily tiZANidine (Zanaflex) 4 MG tablet 1 tablet, Every 12 hours PRN traMADol (ULTRAM) 50 mg, Every 12 hours PRN ALLERGIES: Allergies Allergen Reactions Pregabalin Hallucinations REVIEW OF SYMPTOMS: Review of Systems Constitutional: Negative for appetite change, fatigue, fever and unexpected weight change. HENT: Negative for congestion, ear pain, sinus pressure, sinus pain and sore throat. Eyes: Negative for pain, discharge and visual disturbance. Breasts: Negative for breast mass and breast discharge. Respiratory: Negative for apnea, cough, chest tightness, shortness of breath and wheezing. Cardiovascular: Negative for chest pain, palpitations and leg swelling. Gastrointestinal: Negative for abdominal pain, anorexia, constipation, diarrhea, nausea and vomiting. Genitourinary: Negative for decreased urine volume, difficulty urinating, dysuria, frequency, missed menses, pelvic pain, urgency and vaginal discharge. Musculoskeletal: Positive for back pain and joint pain. Negative for arthralgias, gait problem and joint swelling. Skin: Negative for color change and rash. Neurological: Negative for dizziness, tremors, weakness and headaches. Psychiatric/Behavioral: Negative for agitation, hallucinations and suicidal ideas. The patient is not nervous/anxious. Hematological: Negative for adenopathy. Does not bruise/bleed easily. Endocrine: Negative for cold intolerance, heat intolerance, polydipsia and polyuria. Allergic/Immunologic: Negative for environmental allergies and food allergies. PAST MEDICAL HISTORY Past Medical History: Diagnosis Date Munoz's esophagus with esophagitis 03/16/2023 Centrilobular emphysema ([facility]) 01/25/2023 COPD with emphysema ([facility]) 04/26/2023 COPD with exacerbation ([facility]) 04/07/2023 DDD (degenerative disc disease), lumbar Family history of coronary arteriosclerosis 04/26/2023 Hyperlipidemia ([facility]) 03/16/2023 Idiopathic thrombotic thrombocytopenic purpura ([facility]) 04/26/2023 Other chronic pain 02/08/2023 Other insomnia 02/08/2023 Pericardial effusion 04/26/2023 Respiratory illness Presents with 3 days hx of productive cough, nasal congestion, and mild GREENE. no fever, exposure to anyone sick. Had left over Ventolin that was helping her with her cough. Unintentional weight loss of more than 10 pounds in 90 days 04/26/2023 Past Surgical History: Procedure Laterality Date COLONOSCOPY 09/08/2021 hyperplastic polyp, f/u scope in 5 years 2026 COMPLETE PFT 08/12/2022 FVC 120%, FEV1 98%, FEV1/FVC: 60 CT ABD/PELVIS W/ CONTRAST 08/14/2021 no acute findings, bilat parapelvic renal cysts CT CHEST WITH CONTRAST 08/14/2021 no nodules, sm pericardial effusion unknown significance ECHOCARDIOGRAM 05/28/2021 EF 64%, mild LVH TV: trivial regurg EGD 09/08/2021 LA grade A reflux esophagitis, no bleeding biopsies taken no NSAIDS for period of 8 weeks EYE EXAM 08/29/2021 Annual eye exam MRI : LUMBAR SPINE 04/29/2021 3 mm retrolisthesis of L2 on L3 and 5mm anterolisthesis of L4 on L5. mod disc space narrowing L20L3 and mild mod L4-L5. severe central canal stenosis at L3-L4 and L40L5, multiple level foraminal stenosis as well OTHER SURGICAL HISTORY 2011 fundoscopic exam OTHER SURGICAL HISTORY 09/19/2021 Medial Branch block bilat L3/4 and L4/5 OTHER SURGICAL HISTORY 05/16/2021 Caudal SVITLANA OTHER SURGICAL HISTORY 10/17/2021 RFA right L 4/5 and 5/1 (right) PILONIDAL CYST DRAINAGE 1981 TONSILLECTOMY and Adenoidectomy family history includes Cancer in her maternal grandmother; Diabetes in her father and mother; Heart disease in her father, maternal grandmother, and mother; Hypertension in her father; Mental illness in her mother and sister. OBJECTIVE: Visit Vitals BP 118/78 (BP Location: Left arm, Patient Position: Sitting, BP Cuff Size: Adult long) Pulse 71 Temp 98.3 F (Temporal) Resp 18 Ht 5' 6 Wt 131 lb 6.4 oz SpO2 100% BMI 21.21 kg/m Smoking Status Every Day BSA 1.67 m Physical Exam Vitals and nursing note reviewed. Exam conducted with a plywood scarfer tender present. Constitutional: General: She is not in acute distress. Appearance: Normal appearance. HENT: Head: Normocephalic and atraumatic. Right Ear: External ear normal. Left Ear: External ear normal. Nose: Nose normal. Mouth/Throat: Mouth: Mucous membranes are moist. Eyes: Extraocular Movements: Extraocular movements intact. Conjunctiva/sclera: Conjunctivae normal. Neck: Vascular: No carotid bruit. Cardiovascular: Rate and Rhythm: Normal rate and regular rhythm. Pulses: Normal pulses. Heart sounds: Normal heart sounds. Pulmonary: Effort: Pulmonary effort is normal. Breath sounds: Normal breath sounds. Chest: Breasts: Breasts are symmetrical. Right: Normal. No swelling, inverted nipple, mass, nipple discharge, skin change or tenderness. Left: Normal. No swelling, inverted nipple, mass, nipple discharge, skin change or tenderness. Abdominal: General: Bowel sounds are normal. There is no distension. Palpations: Abdomen is soft. There is no mass. Tenderness: There is no abdominal tenderness. Hernia: There is no hernia in the left inguinal area or right inguinal area. Genitourinary: Exam position: Lithotomy position. Pubic Area: No rash or pubic lice. Labia: Right: No rash, tenderness, lesion or injury. Left: No rash, tenderness, lesion or injury. Urethra: Urethral pain present. No prolapse. Vagina: Normal. No vaginal discharge, erythema, tenderness, bleeding, lesions or prolapsed vaginal pa. Cervix: No cervical motion tenderness, friability, lesion, erythema, cervical bleeding or eversion. Uterus: Normal. Not enlarged and not tender. Adnexa: Right adnexa normal and left adnexa normal. Right: No mass, tenderness or fullness. Left: No mass, tenderness or fullness. Comments: Atrophic changes Musculoskeletal: General: Normal range of motion. Cervical back: Normal range of motion and neck supple. Right lower leg: No edema. Left lower leg: No edema. Lymphadenopathy: Cervical: No cervical adenopathy. Upper Body: Right upper body: No supraclavicular, axillary or pectoral adenopathy. Left upper body: No supraclavicular, axillary or pectoral adenopathy. Lower Body: No right inguinal adenopathy. No left inguinal adenopathy. Skin: General: Skin is warm and dry. Capillary Refill: Capillary refill takes 2 to 3 seconds. Findings: No lesion or rash. Neurological: General: No focal deficit present. Mental Status: She is alert and oriented to person, place, and time. Psychiatric: Mood and Affect: Mood normal. Behavior: Behavior normal. Thought Content: Thought content normal. Judgment: Judgment normal. ASSESSMENT AND PLAN: No follow-ups on file. Problem List Items Addressed This Visit Encounter for screening mammogram for malignant neoplasm of breast Relevant Orders Bilateral screening mammogram Encounter for well woman exam with routine gynecological exam - Primary Relevant Orders THIN PREP TIS PAP AND HR HPV DNA Needs flu shot Relevant Orders Flu vaccine, MDCK, quadrivalent, PF ([id number]) (Flucelvax single dose syringe) Other Visit Diagnoses Screening for cervical cancer documented in this encounter [facility] 01-19-2023 Note Patient here for 6 [...] All other systems reviewed and are negative. [facility] 01-19-2023 Note Cardiovascular Medic [facility] SUBJECTIVE Chief Complaint Patient presents with Follow-up Hypertension Stephan López is a 62 y.o. female here for follow-up. HPI PMHx: HTN, pericardial effusion, HLD She denies any cardiac concerns today. She has back problems. She is 5 months s/p surgery and she is still recovering. She is following with pain management at [facility]. She is not currently checking her BP [...] needed. Dante Hand NP [facility]TP Cardiovascular Medicine [facility] Evaluation note Diagnosis COPD with exacerbation (CMS/HCC)- Primary documented [facility] this encounter [facility]* Diagnosis Controlled type 2 diabetes mellitus without complication, without long-term current use of insulin (CMS/HCC)- Primary DDD (degenerative disc disease), lumbar Degeneration of lumbar or lumbosacral intervertebral disc Centrilobular emphysema (CMS/HCC) Tobacco dependence syndrome Tobacco use disorder Controlled type 2 diabetes mellitus without complication, without long-term current use of insulin (CMS/HCC)- Primary Munoz's esophagus with esophagitis Munoz's esophagus Tobacco dependence syndrome Tobacco use disorder Mixed hyperlipidemia (CMS/HCC) Mixed hyperlipidemia Centrilobular emphysema (CMS/HCC) Other chronic pain Other insomnia Chronic constipation- Primary Unspecified constipation Mixed hyperlipidemia (CMS/HCC) Mixed hyperlipidemia Controlled type 2 diabetes mellitus without complication, without long-term current use of insulin (CMS/HCC) DDD (degenerative disc disease), lumbar Degeneration of lumbar or lumbosacral intervertebral disc ETD (Eustachian tube dysfunction), left Encounter for well woman exam with routine gynecological exam- Primary Encounter for screening mammogram for malignant neoplasm of breast Screening for cervical cancer Screening for malignant neoplasm of the cervix Needs flu shot Need for prophylactic vaccination and inoculation against influenza documented [facility] Diagnosis Controlled type 2 diabetes mellitus without complication, without long-term current use of insulin (CMS/HCC)- Primary DDD (degenerative disc disease), lumbar Degeneration of lumbar or lumbosacral intervertebral disc Centrilobular emphysema (CMS/HCC) Tobacco dependence syndrome Tobacco use disorder Controlled type 2 diabetes mellitus without complication, without long-term current use of insulin (CMS/HCC)- Primary Munoz's esophagus with esophagitis Munoz's esophagus Tobacco dependence syndrome Tobacco use disorder Mixed hyperlipidemia (CMS/HCC) Mixed hyperlipidemia Centrilobular emphysema (CMS/HCC) Other chronic pain Other insomnia Chronic constipation- Primary Unspecified constipation Mixed hyperlipidemia (CMS/HCC) Mixed hyperlipidemia Controlled type 2 diabetes mellitus without complication, without long-term current use of insulin (CMS/HCC) DDD (degenerative disc disease), lumbar Degeneration of lumbar or lumbosacral intervertebral disc ETD (Eustachian tube dysfunction), left ETD (Eustachian tube dysfunction), left Mixed hyperlipidemia (CMS/HCC) Mixed hyperlipidemia Centrilobular emphysema (CMS/HCC) Controlled type 2 diabetes mellitus without complication, without long-term current use of insulin (CMS/HCC) Munoz's esophagus with esophagitis Munoz's esophagus documented in this encounter [facility]* Diagnosis Controlled type 2 diabetes mellitus without complication, without long-term current use of insulin (CMS/HCC)- Primary DDD (degenerative disc disease), lumbar Degeneration of lumbar or lumbosacral intervertebral disc Centrilobular emphysema (CMS/HCC) Tobacco dependence syndrome Tobacco use disorder Controlled type 2 diabetes mellitus without complication, without long-term current use of insulin (CMS/HCC)- Primary Munoz's esophagus with esophagitis Munoz's esophagus Tobacco dependence syndrome Tobacco use disorder Mixed hyperlipidemia (CMS/HCC) Mixed hyperlipidemia Centrilobular emphysema (CMS/HCC) Other chronic pain Other insomnia Chronic constipation- Primary Unspecified constipation Mixed hyperlipidemia (CMS/HCC) Mixed hyperlipidemia Controlled type 2 diabetes mellitus without complication, without long-term current use of insulin (CMS/HCC) DDD (degenerative disc disease), lumbar Degeneration of lumbar or lumbosacral intervertebral disc ETD (Eustachian tube dysfunction), left Centrilobular emphysema (CMS/HCC) documented in this encounter [facility]* Diagnosis Controlled type 2 diabetes mellitus without complication, without long-term current use of insulin (CMS/HCC)- Primary DDD (degenerative disc disease), lumbar Degeneration of lumbar or lumbosacral intervertebral disc Centrilobular emphysema (CMS/HCC) Tobacco dependence syndrome Tobacco use disorder Controlled type 2 diabetes mellitus without complication, without long-term current use of insulin (CMS/HCC)- Primary Munoz's esophagus with esophagitis Munoz's esophagus Tobacco dependence syndrome Tobacco use disorder Mixed hyperlipidemia (CMS/HCC) Mixed hyperlipidemia Centrilobular emphysema (CMS/HCC) Other chronic pain Other insomnia Chronic constipation- Primary Unspecified constipation Mixed hyperlipidemia (CMS/HCC) Mixed hyperlipidemia Controlled type 2 diabetes mellitus without complication, without long-term current use of insulin (CMS/HCC) DDD (degenerative disc disease), lumbar Degeneration of lumbar or lumbosacral intervertebral disc ETD (Eustachian tube dysfunction), left Degeneration of intervertebral disc of lumbar 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- Primary documented in this encounter [facility]* Diagnosis Controlled type 2 diabetes mellitus without complication, without long-term current use of insulin (CMS/HCC)- Primary DDD (degenerative disc disease), lumbar Degeneration of lumbar or lumbosacral intervertebral disc Centrilobular emphysema (CMS/HCC) Tobacco dependence syndrome Tobacco use disorder Controlled type 2 diabetes mellitus without complication, without long-term current use of insulin (CMS/HCC)- Primary Munoz's esophagus with esophagitis Munoz's esophagus Tobacco dependence syndrome Tobacco use disorder Mixed hyperlipidemia (CMS/HCC) Mixed hyperlipidemia Centrilobular emphysema (CMS/HCC) Other chronic pain Other insomnia Chronic constipation- Primary Unspecified constipation Mixed hyperlipidemia (CMS/HCC) Mixed hyperlipidemia Controlled type 2 diabetes mellitus without complication, without long-term current use of insulin (CMS/HCC) DDD (degenerative disc disease), lumbar Degeneration of lumbar or lumbosacral intervertebral disc ETD (Eustachian tube dysfunction), left Degeneration of intervertebral disc of lumbar 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 documented in this encounter [facility]* Diagnosis Controlled type 2 diabetes mellitus without complication, without long-term current use of insulin (CMS/HCC)- Primary DDD (degenerative disc disease), lumbar Degeneration of lumbar or lumbosacral intervertebral disc Centrilobular emphysema (CMS/HCC) Tobacco dependence syndrome Tobacco use disorder Controlled type 2 diabetes mellitus without complication, without long-term current use of insulin (CMS/HCC)- Primary Munoz's esophagus with esophagitis Munoz's esophagus Tobacco dependence syndrome Tobacco use disorder Mixed hyperlipidemia (CMS/HCC) Mixed hyperlipidemia Centrilobular emphysema (CMS/HCC) Other chronic pain Other insomnia Chronic constipation- Primary Unspecified constipation Mixed hyperlipidemia (CMS/HCC) Mixed hyperlipidemia Controlled type 2 diabetes mellitus without complication, without long-term current use of insulin (CMS/HCC) DDD (degenerative disc disease), lumbar Degeneration of lumbar or lumbosacral intervertebral disc ETD (Eustachian tube dysfunction), left Controlled type 2 diabetes mellitus without complication, without long-term current use of insulin (CMS/HCC)- Primary documented in this encounter [facility] [...] pital DATE CREATED AUTHOR AUTHOR'S ORGANIZ ATION 12/07/[address] [facility] EPIC DATE CREATED AUTHOR AUTHOR'S ORGANIZ ATION 01/17/2024 [facility] DATE CREATED AUTHOR AUTHOR'S ORGANIZ ATION 03/05/2024 [facility] Care Teams (unrecognized sec tion and content) Face Worker Relationship Specialty Start Date End Date Jim Deleon MD [address] [place] [phone] PCP - General Family Medicine 09/18/22 Gayla Martinez NP [address] [place] [phone] Referring Physician Nurse Practitioner 09/18/22 Face Worker Relationship Specialty Start Date End Date Jim Deleon MD [address] [place] [phone] PCP - General Family Medicine 09/18/22 Gayla Martinez NP [address] [place] [phone] Referring Physician Nurse Practitioner 09/18/22 Face Worker Relationship Specialty Start Date End Date Jim Deleon MD [address] [place] [phone] PCP - General Family Medicine 04/26/23 Gayla Martinez NP [address] [place] [phone] Referring Physician Nurse Practitioner 09/18/22 Gayla Martinez NP [address] [place] [phone] Nurse Practitioner Family Medicine 04/26/23 Face Worker Relationship Specialty Start Date End Date Jim Deleon MD [address] [place] [phone] PCP - General Family Medicine 04/26/23 Gayla Martinze NP [address] [place] [phone] Referring Physician Nurse Practitioner 09/18/22 Gayla Martinez NP [address] [place] [phone] Nurse Practitioner Family Medicine 04/26/23 Face Worker Relationship Specialty Start Date End Date Jim Deleon MD [address] [place] [phone] PCP - General Family Medicine 04/26/23 Gayla Martinez NP [address] [place] [phone] Referring Physician Nurse Practitioner 09/18/22 Gayla Martinez NP [address] [place] [phone] Nurse Practitioner Family Medicine 04/26/23 Face Worker Relationship Specialty Start Date End Date Jim Deleon MD [address] [place] [phone] PCP - General Family Medicine 04/26/23 Gayla Martinez NP [address] [place] [phone] Referring Physician Nurse Practitioner 09/18/22 Gayla Martinez NP [address] [place] [phone] Nurse Practitioner Family Medicine 04/26/23 Face Worker Relationship Specialty Start Date End Date Jim Deleon MD [address] [place] [phone] PCP - General Family Medicine 04/26/23 Gayla Martinez NP [address] [place] [phone] Referring Physician Nurse Practitioner 09/18/22 Gayla Martinez NP [address] [place] [phone] Nurse Practitioner Family Medicine 04/26/23 Face Worker Relationship Specialty Start Date End Date Jim Deleon MD [address] [place] [phone] PCP - General Family Medicine 04/26/23 Gayla Martinez NP [address] [place] [phone] Referring Physician Nurse Practitioner 09/18/22 Gayla Martinez NP [address] [place] [phone] Nurse Practitioner Family Medicine 04/26/23 Face Worker Relationship Specialty Start Date End Date Jim Deleon MD [address] [place] [address] PCP - General Family Medicine 04/26/23 Gayla Martinez NP [address] [place] [phone] Referring Physician Nurse Practitioner 09/18/22 Gayla Martinez NP [address] [place] [phone] Nurse Practitioner Family Medicine 04/26/23 Reason for Visit (unrecogniz ed section and content) Reason Onset Date Comments Med Refill 01/27/2024 FOR RECORDS PERTAINING TO PATIENTS WHO ARE [...] BE BASED ON THE PRIMARY CLINICAL RECORDS. [facility]. provides no warranty or guarantee of the accuracy or completeness of information in this document.
--- NOTE | 2024-03-15 12:06 | PM.CN ---
Consult Note: HPI Data of Consult Patient: known to practice within the last 3 years Requesting Physician: Gwendolyn Salamanca NP Primary Care Provider: Gayla Martinez NP Consult Narrative Reason for consult: f/u Narrative: Stephan muniz pleasant 64 year old female presents for evaluation and management of chronic back pain. Today pain 6/10 in right low back and right hip, describes as a sharp burning pain. Patient has a hx of L3,4,5 fusion. Patient has found mild benefit to current medication regimen, no side effects. Patient continues to have moderate to severe pain that is severely impacting functional ability, DIONNA 40%. Patient has completed aquatherapy without improvement. failed cluneal nerve RFA and recent L5-S1 SVITLANA. is not interested in spinal cord stim trial. cc:: CC: Gwendolyn Salamanca NP Review of Systems ROS Status of ROS 10 or more systems reviewed and unremarkable except as noted in history and below Musculoskeletal Reports: back pain PFSH PFSH Medical History Low back pain ?M54.50 - Low back pain, unspecified (ICD-10) Osteoarthritis ?M19.90 - Unspecified osteoarthritis, unspecified site (ICD-10) Diabetes ?E11.9 - Type 2 diabetes mellitus without complications (ICD-10) COPD (chronic obstructive pulmonary disease) ?J44.9 - Chronic obstructive pulmonary disease, unspecified (ICD-10) Smoker ?F17.200 - Nicotine dependence, unspecified, uncomplicated (ICD-10) Hypertension ?I10 - Essential (primary) hypertension (ICD-10) Surgical History S/P surgical removal of pilonidal cyst ?Z98.890 - Other specified postprocedural states (ICD-10) H/O lumbosacral spine surgery ?Z98.890 - Other specified postprocedural states (ICD-10) Meds Home Medications and Allergies Home Medications ?Medication ?Instructions ?Recorded ?Confirmed ?Type amitriptyline 10 mg tablet 25 mg PO DAILY 11/23/22 11/22/23 History atorvastatin 20 mg tablet 20 mg PO DAILY 11/23/22 11/22/23 History ferrous sulfate 325 mg (65 mg 325 mg PO DAILY 11/23/22 11/22/23 History iron) tablet (FeroSul) fluticasone fur. 100 mcg-umeclid 1 inh inhalation DAILY 11/23/22 11/22/23 History 62.5 mcg-vilant 25 mcg inhalat.powder (Trelegy Ellipta) lisinopril 2.5 mg tablet 2.5 mg PO DAILY 11/23/22 11/22/23 History metformin 500 mg tablet 500 mg PO BID 11/23/22 11/22/23 History meloxicam 15 mg tablet 15 mg PO DAILY 04/15/23 11/22/23 History naloxone 4 mg/actuation nasal 4 mg intranasal Q3M PRN opioid 05/19/23 11/22/23 Rx spray (Narcan) overdose #2 ea tramadol 50 mg tablet 50 mg PO BID PRN pain #60 tabs 05/19/23 11/22/23 Rx fluticasone propionate 50 intranasal 08/30/23 History mcg/actuation nasal spray,suspension loratadine 10 mg tablet 10 mg PO DAILY 08/30/23 11/22/23 History tizanidine 4 mg capsule 4 mg PO QDAY PRN muscle spasticity 10/04/23 11/22/23 Rx #30 caps tizanidine 4 mg tablet 4 mg PO BID PRN muscle spasticity 12/27/23 Rx #60 tabs tramadol 50 mg tablet 50 mg PO DAILY #30 tabs 12/27/23 Rx tramadol 50 mg tablet 50 mg PO DAILY PRN pain #30 tabs 01/27/24 Rx tramadol 50 mg tablet 50 mg PO DAILY PRN pain #30 tabs 03/08/24 Rx tramadol 50 mg tablet 50 mg PO DAILY PRN pain #30 tabs 03/08/24 Rx Allergies Allergy/AdvReac Type Severity Reaction Status Date / Time No Known Drug Allergies Allergy Verified 11/22/23 08:12 Exam Constitutional Documenting provider has reviewed patient's vital signs: yes Common normals: no apparent distress, oriented x3, healthy appearing, alert and well nourished General appearance: cooperative HENOH Common normals: normocephalic, hearing grossly normal bilaterally and moist oral mucous membranes Head and scalp: normocephalic Eye Common normals: PERRL Pupil: PERRL Neck & C-Spine Common normals: full ROM General: normal visual inspection Chest Common normals: inspection of chest normal Respiratory Common normals: normal respiratory effort, no retractions and no use of accessory muscles Back & Pelvis Lumbar spine/lower back: ROM limited, pain with ROM, lumbar spinal tenderness and straight leg raise negative bilaterally Sacroiliac joints: SI joints normal Other: facet loading bilateral strength 5/5 in BLE Extremity Common normals: normal to inspection and full ROM Neuro Common normals: oriented x3, CN's II-XII intact bilaterally, moves all extremities, no focal motor deficits, no sensory deficits noted and deep tendon reflexes 2+ bilaterally Sensorium/orientation: alert Gait (neuro): antalgic and assistive device used cane Motor exam: strength 5/5 throughout and no movement abnormalities noted Psych Common normals: mental status grossly normal, thought process normal, cooperative, affect normal, speech normal and activity/motor behavior normal Speech: normal speech Thought process: normal thought process Results Additional Findings Additional findings: If on a controlled substance or opioids, I have checked an [place] report on this patient and there are no aberrancies noted in the prescribing history.??If on a controlled substance or opioid a drug screen was completed and reviewed within the last year, and if there has not been a drug screen completed we ordered one today to monitor higher risk, state monitored pain medication use. As part of providing excellent, safe, comprehensive care, the following was completed at our patient's visit: 1. A medication reconciliation and review to ensure accurate knowledge of current/active medications, including asking our patients to inform us about any [id number] medications or herbal remedies/nutritional supplements/alternative remedies. 2. A review to specifically ensure our patients have had annual screening for screening for depression, screening for tobacco use, and screening for unhealthy alcohol use. For concerning screenings had a discussion with the patient, provided patient education, and recommended follow-up with primary care provider when appropriate. If patient noted with a risk of falling, they received education on strength, gait, and balance training to prevent future risk of falling. Portions of this note may have been carried over from the previous visit and updated as appropriate. Please note this office utilizes paper charting in addition to the electronic medical record. A list of current medications, vitals, and PMH is available there as the clinical staff outside of myself do not have access to [employer] charting during the clinic day operations. As part of providing quality comprehensive care the current medications, vitals, and PMH were reviewed in the paper chart. Assessment and Plan Assessment and Plan (1) Chronic right-sided low back pain without sciatica: (2) Failed back syndrome: (3) Sacroiliitis: (4) Lumbar radiculopathy: (5) Muscle spasm: (6) Chronic prescription opiate use: Assessment and Plan: I feel these medications are improving the patient's quality of life and allow them to tolerate activities of daily living as well as participate in recreational activity.? The patient does not report intolerable side effects. The patient is NOT opioid naive and non-pharmacologic and non-opioid treatment has failed to significantly relieve the patient's pain and improve functionality. The patient has a diagnosis that is related to a somatic or visceral pain etiology. ? ?? I reviewed with the patient the potential risks and side effects with the use of? opioid medications including but not limited to respiratory depression,? sedation, and even . Within the last 12 months I have verified the patient has access to naloxone should? these effects occur. The patient was advised to let? their family know they had Naloxone in case they would need to administer? the medication. I advised the patient to avoid the use of any other? sedation substances including alcohol, THC, and benzodiazepines while? taking opioid medications due to the risk of compounding side effects and? detrimental outcomes. within the last 12 months I have reviewed the HAND EMBROIDERER, pain treatment agreement and urine drug screen.? ?? A drug screen was completed within the last year, and no aberrancies were noted regarding their use of controlled substances. The patient understands they are subject to the terms and conditions of the pain contract that they have signed. ? ?? I have checked an [place]AR[place] report on this patient today and there are no aberrancies noted in the prescribing history.? (7) Lumbar stenosis with neurogenic claudication: (8) Lumbar spondylosis: Plan update UDS today continue tizanidine 4mg BID PRN pain/spasms continue mobic 15mg daily, denies side effects. risks vs benefits reviewed continue tramadol 50mg BID PRN moderate to severe pain continue HEP as tolerated continue PRN bracing declining spinal cord stim trial at this time naloxone previously discussed and prescribed f/u 3 months, sooner if needed
== END 2024-03-15 11:36 | disposition home or self-care (01) ==
PROVIDERS: PCP Nurse Practitioner; Visit Provider Nurse Practitioner
DX: M54.50 Low back pain, unspecified (principal); M96.1 Postlaminectomy syndrome, not elsewhere classified; M46.1 Sacroiliitis, not elsewhere classified; M54.16 Radiculopathy, lumbar region; M62.838 Other muscle spasm; Z79.891 Long term (current) use of opiate analgesic; M48.062 Spinal stenosis, lumbar region with neurogenic claudication; M47.816 Spondylosis without myelopathy or radiculopathy, lumbar region
CPT/HCPCS: G0463

== ENCOUNTER 2024-04-12 11:06 | Outpatient (OUT) | payer OTHER, SELFPAY ==
--- NOTE | 2024-04-12 11:11 | XR_ITS ---
The [address] [address] Patient Name: SHELLEY VAUGHN MRN: [id number] date: 1960 Sex: F Assigned Patient Location: [facility] Current Patient Location: CT Accession/Order Number: [id number] Exam Date: 04/13/2024 10:11 Report Date: 04/13/2024 10:16 At the request of: ERINN HODGES Procedure: XR scoliosis survey THORACOLUMBAR SPINE (scoliosis survey) - 9 images COMPARISON: Lumbar spine 05/12/2023 CLINICAL DATA: Sagittal and balance and chronic back pain Multiple AP views of the thoracic and lumbar spine were obtained including upright view with long cassette in neutral and bending positions. There is prior laminectomy and fusion at the lower lumbar spine extending from L3 through L5. There are degenerative changes of the spine with endplate spurring. No obvious acute fractures are identified within limits of this single projection. There is slight thoracolumbar levoscoliotic curvature. The angle of curvature is estimated at 10 degrees. No paraspinal soft tissue abnormalities are noted. XR/XR scoliosis survey IMPRESSION: POSTOPERATIVE CHANGES OF LOWER LUMBAR SPINE. MILD DEGENERATIVE SPURRING. SLIGHT THORACOLUMBAR LEVOSCOLIOSIS. Impression dictated by: Clarice Gupta M.D.04/13/2024 10:16 AM Dictation Location: [facility]ITALStudio Publishing Electronically authenticated by: [id number] Y Date: 04/13/2024 10:16
--- OUTSIDE RECORDS SUMMARY | 2024-04-12 11:12 | XMS_ITS | CCD ---
Author Organization [facility] Care Team Providers Care Supervisor Central [employer] Name Role Phone ALBA MOHAMAD Attending Unavailable AICHHOLZ, JANITOR AND CLEANER GAYLA Primary Care Unavailable ALGHOTHANI, MOHAMAD Consulting Unavailable ALGHOTHANI, MOHAMAD Admitting Unavailable AICHHOLZ, JANITOR AND CLEANER GAYLA Primary Care Unavailable AICHHOLZ, JANITOR AND CLEANER GAYLA Admitting Unavailable AICHHOLZ, JANITOR AND CLEANER GAYLA Attending Unavailable AICHHOLZ, JANITOR AND CLEANER GAYLA Consulting Unavailable ALGHOTHANI, MOHAMAD Attending Unavailable AICHHOLZ, JANITOR AND CLEANER GAYLA Primary Care Unavailable ALGHOTHANI, MOHAMAD Consulting Unavailable ALGHOTHANI, MOHAMAD Admitting Unavailable ALGHOTHANI, MOHAMAD Attending Unavailable AICHHOLZ, JANITOR AND CLEANER GAYLA Primary Care Unavailable ALGHOTHANI, MOHAMAD Consulting Unavailable ALGHOTHANI, MOHAMAD Admitting Unavailable ALEX, INA Attending Unavailable ALEX, INA Admitting Unavailable ALEX, INA Consulting Unavailable AICHHOLZ, JANITOR AND CLEANER GAYLA Primary Care Unavailable AICHHOLZ, JANITOR AND CLEANER GAYLA Admitting Unavailable AICHHOLZ, JANITOR AND CLEANER GAYLA Attending Unavailable AICHHOLZ, JANITOR AND CLEANER GAYLA Consulting Unavailable AICHHOLZ, JANITOR AND CLEANER GAYLA Primary Care Unavailable AICHHOLZ, JANITOR AND CLEANER GAYLA Admitting Unavailable AICHHOLZ, JANITOR AND CLEANER GAYLA Attending Unavailable AICHHOLZ, JANITOR AND CLEANER GAYLA Consulting Unavailable AICHHOLZ, JANITOR AND CLEANER GAYLA Primary Care Unavailable Aichholz ENGINE ASSEMBLER, Gayla Unavailable Jim Deleon MD Primary Care Provider Aicleno ENGINE ASSEMBLER, Gayla Unavailable Jim Deleon MD Primary Care Provider Aichdouglas ENGINE ASSEMBLER, Gayla Unavailable NE WILLISAMAD Attending Unavailable DANTE HAND Attending Unavailable Isabela BOWIE, Lara Amos Attending Unavailable Aichholz RECORDS AND INFORMATION MANAGER-JANITOR AND CLEANER, Gayla Cook Primary Care Unava ilable Isabela BOWIE, Lara Amos Attending Unavailable Isabela BOWIE, Lara Amos Attending Unavailable Isabela BOWIE, Lara Amos Attending Unavailable Isabela BOWIE, Lara Amos Attending Unavailable Edilson PA-C, Dasha Pedro Attending Unavailab le Unavailable, Physician Primary Care Unavailab rose Snider III, MD, Delfino Holder U navailable Edilson PA-C, Dasha Pedro Attending Unavailab le Unavailable, Physician Primary Care Unavailab le Edilson PA-C, Dasha Pedro Attending Unavailab le Aichholz RECORDS AND INFORMATION MANAGER-JANITOR AND CLEANER, Gayla Cook Primary Care Unava ilable Edilson PA-C, Dasha Pedro Attending Unavailab le Aichholz RECORDS AND INFORMATION MANAGER-JANITOR AND CLEANER, Gayla Cook Primary Care Unava ilable Edilson PA-C, Dasha Pedro Attending Unavailab le Aichholz RECORDS AND INFORMATION MANAGER-JANITOR AND CLEANER, Gayla Joyce Primary Care Unava ilable Edilson PA-C, Dasha Pedro Attending Unavailab le Aichholz RECORDS AND INFORMATION MANAGER-JANITOR AND CLEANER, Gayla Joyce Primary Care Unava ilable Isabela BOWIE, Lara Amos Attending Unavailable AICHHOLZ, GAYLA Attending Unavailable AICHHOLZ, GAYLA Attending Unavailable AICHHOLZ, GAYLA Attending Unavailable AICHHOLZ, GAYLA Attending Unavailable Allergies Allergy Classification Reported Allergen(s) Allergy Type Date of Onset Reaction(s) Facility (15 sources) Pregabalin; Translations: [PREGABALIN] Propensity to adverse reactions 3 [facility] (1 source) No Known Medication Allergies; Translations: [No Known Medication Allergies] Propensity to adverse reactions to drug (disorder) [facility] Rep[facility] Medications Current Medications Medication Drug Class(es) Dates Sig (Normalized) Sig (Original) [id number] 200 actuat albuterol 0.09 mg/actuat metered dose inhaler (2 sources) beta2-Adrenergic Agonist Start: 04-04-2024 End: 05-04-2024 take 2 puff(s) by inhalation every six hours for wheezing albuterol HFA 90 mcg/act inhaler Indications: Centrilobular emphysema (CMS/HCC) Inhale 2 puffs every 6 (six) hours if needed for shortness of breath or wheezing 18 g 04/04/2024 05/04/2024 Active amitriptyline hydrochloride 25 mg oral tablet (2 [...] 0 Active atorvastatin 20 mg oral tablet (15 sources) HMG-CoA Reductase Inhibitor Start: 07-27-2023 End: 03-20-2024 take 1 tablet by mouth at bedtime atorvastatin (Lipitor) 20 MG tablet Indications: Mixed hyperlipidemia (CMS/HCC) Take 1 tablet (20 mg) by mouth at bedtime 90 tablet 1 12/21/2023 Active Start: 03-23-2023 End: 06-21-2023 take 1 [...] Monitoring Suppl (True Metrix Meter) w/Device kit (6 sources) Start: 01-27-2024 End: 01-26-2025 Blood Glucose [...] oral solution (2 sources) alpha-Adrenergic Agonist, Uncompetitive Z-sdldjk-A-aspartate Receptor Antagonist, Sigma-1 Agonist Start: 04-07-2023 End: 04-14-2023 take 10 mL by mouth four times daily as needed for cough sqrtidzndpidxfw-hwcjzeeveoabkpt-IQ (Bromfed DM) 30-2-10 MG/5ML syrup Indications: COPD [...] propionate 0.05 mg/actuat metered dose nasal spray (13 sources) Corticosteroid Start: 07-27-2023 End: 01-20-2024 take [...] / vilanterol 0.025 mg/actuat dry powder inhaler (17 sources) Anticholinergic, Corticosteroid, beta2-Adrenergic Agonist Start: 07-08-2023 End: 06-26-2024 take 1 puff(s) by mouth once daily Lhocbbjexmd-Wjkznygzf-Jssbut (Trelegy Ellipta) 100-62.5-25 MCG/ACT aerosol powder Indications: Centrilobular emphysema (CMS/HCC) Inhale 1 puff Daily Rinse mouth after use 3 each 03/28/2024 06/26/2024 Active take 1 dose by inhal ation once daily Twvieqyrzxv-Ljnbvbrtg-Ijgozr (Trelegy El lipta) 100-62.5-25 MCG/ACT aerosol powder Inhale 1 Dose 1 (one) time each day. 0 Active lisinopril 10 mg oral tablet (15 sources) Angiotensin Converting Enzyme Inhibitor Start: 01-14-2024 take 1 tablet by mouth once daily lisinopril 10 MG tablet Take 10 mg by mouth Daily 01/14/2024 Active Start: 01-19-2023 End: 03-20-2024 take 1 tablet by mouth once daily lisinopril 5 MG tablet Indications: Controlled type 2 diabetes mellitus without complication, without long-term current use of insulin (CMS/HCC) Take 1 tablet (5 mg) by mouth Daily 90 tablet 1 12/21/2023 03/20/2024 Active loratadine 10 mg oral tablet (13 sources) Start: 07-27-2023 End: 03-20-2024 take 1 tablet by mouth once daily loratadine (Claritin) 10 MG tablet Indications: ETD (Eustachian tube dysfunction), left Take 1 tablet (10 mg) by mouth Daily 90 tablet 1 12/21/2023 Active meloxicam 15 mg oral tablet (17 sources) Nonsteroidal Anti-inflammatory Drug Start: 03-23-2023 End: 06-26-2024 take 1 tablet by mouth once daily meloxicam (Mobic) 15 MG tablet Indications: Degeneration of intervertebral disc of lumbar 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 Take 1 tablet (15 mg) by mouth Daily 90 tablet 03/28/2024 06/26/2024 Active metFORMIN hydrochloride 500 mg oral tablet (14 sources) Biguanide Start: 07-27-2023 take 1 tablet [...] omeprazole 40 mg delayed release oral capsule (15 sources) Proton Pump Inhibitor Start: 06-01-2023 End: 03-20-2024 take 1 capsule by mouth once daily omeprazole (PriLOSEC) [address] capsule Indications: Munoz's esophagus with esophagitis Take 1 capsule (40 mg) by mouth Daily 90 capsule 1 12/21/2023 Active Start: 03-16-2023 End: 04-15-2023 take 1 capsule by mouth in the morning omeprazole (PriLOSEC) [address] capsule Indications: Munoz's esophagus with esophagitis Take 1 capsule (40 mg) by mouth in the morning. 30 capsule 2 03/16/2023 04/15/2023 Active tiZANidine 4 mg oral tablet (14 sources) Central alpha-2 Adrenergic Agonist take 1 tablet by mouth once tiZANidine (Zanaflex) 4 MG tablet Take 1 tablet by mouth every 12 (twelve) hours if needed for muscle spasms. Active traMADol hydrochloride 50 mg oral tablet (12 sources) Opioid Agonist traMADol (Ultram ) 50 [...] pulmonary disease with (acute) exacerbation] Onset: 01-25-2023 Resolved: 03-30-2024 04-07-2023 Chronic Diabetes mellitus without complication (20 sources) Type 2 diabetes mellitus without complications; Translations: [Type 2 diabetes mellitus without complication] Onset: 09-11-2011 Chronic Disorders of lipid metabolism (19 sources) Hyperlipidemia; Translations: [Hyperlipidemia, unspecified] Onset: 03-16-2023 03-16-2023 Chronic Esophageal disorders (17 sources) Munoz's esophagus with esophagitis; Translations: [Munoz's esophagus without dysplasia] Onset: 03-16-2023 03-16-2023 Chronic Essential hypertension (6 sources) Essential (primary) hypertension; Translations: [ESSENTIAL PRIMARY HYPERTENSION] Onset: 06-10-2022 Chronic Hypertension with complications and secondary hypertension (2 sources) Hypertensive heart disease without heart failure; Translations: [Hypertensive heart disease without heart failure] Onset: 01-14-2024 Chronic Other circulatory disease (8 sources) Thrombotic thrombocytopenic purpura; 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] Onset: 04-26-2023 04-26-2023 Chronic Other circulatory disease (6 sources) Thrombotic microangiopathy; 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] Onset: 04-26-2023 03-06-2024 Chronic Other nervous system disorders (14 sources) Chronic pain; Translations: [Other chronic pain] Onset: 02-08-2023 02-08-2023 Chronic Other screening for suspected conditions (not mental disorders or infectious disease) (19 sources) Patient encounter status; Translations: [Encounter for screening mammogram for malignant neoplasm of breast] Onset: 12-06-2023 12-06-2023 Episodic Pleurisy; pneumothorax; pulmonary collapse (4 sources) Pleural effusion, not elsewhere classified; Translations: [PLEURAL EFFUSION NEC] Onset: 05-08-2022 Episodic Residual codes; unclassified (14 sources) Insomnia; Translations: [Other insomnia] Onset: 02-08-2023 02-08-2023 Chronic Screening and history of mental health and substance abuse codes (3 sources) Ex-smoker; Translations: [Personal history of nicotine dependence] Onset: 04-04-2024 04-04-2024 Episodic Spondylosis; intervertebral disc disorders; other back problems (19 sources) Degeneration of lumbar intervertebral disc; Translations: [Other intervertebral disc degeneration, lumbar region] Onset: 01-25-2023 01-25-2023 Chronic Substance-related disorders (17 sources) Tobacco dependence syndrome; Translations: [Nicotine dependence, unspecified, uncomplicated] Onset: 01-22-2023 01-22-2023 Chronic Unclassified (3 sources) OTH PERICARDIAL EFFUSION NONINFLAMM; Translations: [OTH PERICARDIAL EFFUSION NONINFLAMM] Onset: 01-08-2022 Unclassified (1 source) Other pericardial effusion (noninflammatory); Translations: [Other pericardial effusion (noninflammatory)] Onset: 06-10-2022 Past or Other Problems Problem Classification Problem Date Documented Da te Episodic/Chronic Immunizations and screening for infectious disease (12 sources) Needs influenza immunization; Translations: [Encounter for immunization] Onset: 12-06-2023 12-06-2023 Episodic Influenza (12 sources) Influenza due to Influenza A virus; Translations: [Influenza due to other identified influenza virus with other respiratory manifestations] Onset: 04-09-2023 Resolved: 04-26-2023 04-26-2023 Episodic Other gastrointestinal disorders (12 sources) Chronic constipation; Translations: [Other constipation] Onset: 07-27-2023 07-27-2023 Episodic Other nutritional; endocrine; and metabolic disorders (4 sources) Abnormal weight loss; Translations: [ABNORMAL WEIGHT LOSS] Onset: 08-04-2021 Episodic Other nutritional; endocrine; and metabolic disorders (12 sources) Unintentional weight loss; Translations: [Abnormal weight loss] Onset: 04-26-2023 Resolved: 03-30-2024 04-26-2023 Episodic Otitis media and related conditions (13 sources) Dysfunction of left eustachian tube; Translations: [Unspecified Eustachian tube disorder, left ear] Onset: 07-27-2023 07-27-2023 Episodic Jovita-; endo-; and myocarditis; cardiomyopathy (except that caused by tuberculosis or sexually transmitted disease) (16 sources) Pericardial effusion (noninflammatory); Translations: [Pericardial effusion] Onset: 10-16-2021 Resolved: 03-30-2024 Episodic Residual codes; unclassified (12 sources) Family history of coronary arteriosclerosis; Translations: [Family history of ischemic heart disease and other diseases of the circulatory system] Onset: 04-26-2023 04-26-2023 Episodic Unclassified (1 source) OTH PERICARDIAL EFFUSION NONINFLAMM; Translations: [OTH PERICARDIAL EFFUSION NONINFLAMM] Onset: 01-05-2022 Unclassified (1 source) Other pericardial effusion (noninflammatory); Translations: [Other pericardial effusion (noninflammatory)] Onset: 01-14-2024 Unclassified (2 sources) Patient encounter status 04-04-2024 Results Test Name Value Interpretation Reference Range Facility HbA1c (Bld) [Mass fraction]o n 04-04-2024 Interpretation and review of laboratory results Abnormal [facility] 04-04-2024 HbA1c (Bld) [Mass fraction] 6.10 % [facility] Neurosurgery Office/Clinic N oteon 03-16-2024 Neurosurgery Office/Clinic Note Chief Complaint 4 month back follow up History of Present Illness The patient is a pleasant 64-year-old female with history of diabetes, COPD, and chronic nicotine abuse who returns to the neurosurgical office approximately 1.5 years status post L3-5 decompression and posterior spinal [...] she was discontinued from her LSO brace 01/2023 and has since completed physical therapy. She is established with [place] pain management. She is also known to have moderately severe central stenosis C6-7 for which she is asymptomatic. She was last seen in the neurosurgical office 10/2023 and returns today for ongoing clinical surveillance. At this time, she notes persistent low back pain which tends to be more sacral and sacroiliac in nature. This is constant though does increase in severity with standing and increased activity. She limits grocery store trips to [...] bladder incontinence; no saddle paresthesia. She denies any upper extremity radicular pain, numbness, paresthesia or weakness. No difficulty with fine motor skills of the hands. She continues to follow with [place] pain management with most recent injection including a caudal epidural which the patient has found some benefit. The patient brings a brochure with her to today's visit regarding a [employer] spinal cord stimulator for which she has been offered a trial through pain management. The patient states that she has reservations for such a device not liking the fact that it would ultimately be implanted in her body if the trial proved beneficial. I discussed with her that previous spinal cord stimulators were not generally MRI compatible though newer versions tend to be. 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 Should the patient have a spinal cord stimulator placed, this may be in the way of the target area for future surgical intervention and therefore would require removal. At this point, the patient does not feel she wants to move forward with such a venture. I suggested returning to pain management for consideration of additional injection therapy as this has proved somewhat beneficial in the past. Recent imaging (provider interpretation): MRI lumbar 08/03/[address] [facility] reveals evidence of L3-5 posterior spinal [...] facet arthropathy. Lumbar flexion/extension x-rays 04/30/2023 at [facility] reveals straightening of lumbar lordosis. Evidence of L3-5 posterior spinal fusion with instrumentation and interbody fusion L4-5. No evidence of hardware fracture or pullout. Patient found to have degenerative disc disease L2-3 and L5-S1. There is slight retrolisthesis L2-3 as well as unchanged anterior listhesis at her surgerized L4-5 segment. No evidence of dynamic instability. CT lumbar spine 02/03/2023 at [facility] reveals evidence of L3-5 posterior spinal fu (more content not included)... Normal [facility] Office Visiton 01-14-2024 Follow-up visit [id number] James López 1960 F Date Provider Department Center 01/14/2024 [id number]-[id number] WILLIS [facility] Family History Problem Relation Age of Onset Other Mother Heart attack Father Other Father Other Father Other Maternal Grandmother Family Status - Relation Status Age at Mother Father Maternal Grandmother Level of Service:36622 OR OFFICE/OUTPATIENT ESTABLISHED MOD MDM 30 MIN Normal [facility] IGP,APTIMA HPV,AGE GDLNon AGE GDLN ACOG TESTING Note . [facility] Comment on above: TESTS RESULT FLAG UN ITS REF RANGE LAB Clinician Provided Cytology Information Source.............Cervix;Endocervix Other..............Post Menopausal No. of containers..01 ThinPrep Vial Age Algo ACOG Radha... - 01 FLAG LEGEND: L-Low Normal,H-High Normal,LL-Alert Low,HH-Alert High <-Panic Low,>-Panic High,A-Abnormal,AA-Critical Abnormal Performed at: 01 =[address] [place] [address] Amirah Barnett MD, HPV APTIMA Negative Negative [facility] Comment on above: This nucleic acid am plification test detects fourteen high- risk HPV types (16,18,31,33,35,39,45,51,52,56,58,59,66,68) without differentiation. Performed at: =[address] [id number] Tire Installer: Amirah Barnett MD, Phone: [phone] Performed at: [address] [id number] T[employer] Installer: Amirah Barnett MD, Phone: [phone] IGP, APTIMA HPV, RFX 16/18,45 Note . [facility] Comment on above: TESTS RESULT FLAG U NITS REF RANGE LAB DIAGNOSIS: 02 NEGATIVE FOR INTRAEPITHELIAL LESION OR MALIGNANCY. CELLULAR CHANGES ASSOCIATED WITH ATROPHY ARE PRESENT. Specimen adequacy: 02 Satisfactory for evaluation. Endocervical and/or squamous metaplastic cells (endocervical component) are present. Performed by: 02 Stevie Olson, [employer] ([facility]) . 02 Note: Note 02 The [...] <-Panic Low,>-Panic High,A-Abnormal,AA-Critical Abnormal Performed at: [address] [address] Amirah Barnett MD, BROOM-ALONE MENOPAUSAL CERVIX ENDOCERVIX [facility] Provider Letteron 10-27-2023 Provider Letter ARCELIA Santos [address] [place] [address] Re: Stephan López Date of Visit: 10/26/2023 Dear Gayla PANIAGUA, This patient was recently seen in the neurosurgical office. Please see attached note for further details. Let me know if you have any questions or concerns. Sincerely, MICHELLE Engle Providers: Gwendolyn Salamanca The following document(s) were included in the letter: October 26, 2023 14:35:44 EDT - (10/26/2023) Neurosurgery Office Visit Note Normal [facility] Neurosurgery Office/Clinic N oteon 10-26-2023 Neurosurgery Office/Clinic [...] continues to follow with [facility] pain management and has undergone previous L5-S1 transforaminal SVITLANA 05/10/2023 with approximately 2 to 3 weeks incomplete benefit. She has also undergone bilateral sacroiliac joint injections. She is utilizing meloxicam and tizanidine once daily for pain as well as tramadol on rare occasion. Recent imaging (provider interpretation): MRI lumbar 08/03/[address] [facility] reveals evidence of L3-5 posterior spinal [...] facet arthropathy. Lumbar flexion/extension x-rays 04/30/2023 at [facility] reveals straightening of lumbar lordosis. Evidence of L3-5 posterior spinal fusion with instrumentation and interbody fusion L4-5. No evidence of hardware fracture or pullout. Patient found to have degenerative disc disease L2-3 and L5-S1. There is slight retrolisthesis L2-3 as well as unchanged anterior listhesis at her surgerized L4-5 segment. No evidence of dynamic instability. CT lumbar spine 02/03/2023 at [facility] reveals evidence of L3-5 posterior spinal fusion [...] central/left paracentral (more content not included)... Normal [facility] Neurosurgery Office/Clinic N oteon 05-25-2023 Neurosurgery Office/Clinic [...] transforaminal SVITLANA 05/10/[address] [facility] pain management which did give her approximately 2 to 3 weeks of incomplete benefit. She is planned for bilateral sacroiliac joint injections in the near future. The patient has discontinued her LSO brace that continues her electromagnetic stimulator 8 hours/day. Recent imaging (provider interpretation): Lumbar flexion/extension x-rays 04/30/2023 at [facility] reveals straightening of lumbar lordosis. Evidence of L3-5 posterior spinal fusion with instrumentation and interbody fusion L4-5. No evidence of hardware fracture or pullout. Patient found to have degenerative disc disease L2-3 and L5-S1. There is slight retrolisthesis L2-3 as well as unchanged anterior listhesis at her surgerized L4-5 segment. No evidence of dynamic instability. CT lumbar spine 02/03/2023 at [facility] reveals evidence of L3-5 posterior spinal fusion [...] prior imaging. CT lumbar spine 10/14/2022 at [facility] reveals evidence of L3-5 decompression and posterior [...] which c (more content not included)... Normal [facility] INFLUENZA A AND B AGon 0 04-08-2023 INFLUENZA VIRUS A ANTIGEN Positive Abnormal [facility] Comment on above: NOTE: Live attenuate d influenza vaccine viruses can cause a positive result for a rapid influenza diagnostic test if administered up to 7 days prior to rapid testing. INFLUENZA VIRUS B ANTIGEN Negative [facility] Comment on above: Negative for Flu B p rotein antigen. Infection due to Flu B cannot be ruled out. Flu B antigen in the sample may be below the detection limit of the test. Interpretation and review of laboratory results Abnormal [facility] 36on 03-19-2023 36 Please let her know her labs showed normal kidney function. Can continue lisinopril. Thank you Normal [facility] Telephoneon 03-19-2023 Telephone [id number] James López 1960 F Date Provider Department Center 03/19/2023 EseDANTE HAND [facility] Family History Problem Relation Age of Onset Other Mother Heart attack Father Other Father Other Father Other Maternal Grandmother Family Status - Relation Status Age at Mother Father Maternal Grandmother Normal [facility] Office Visiton 01-19-2023 Follow-up visit [id number] James López 1960 F Date Provider Department Center 01/19/2023 DANTE BAIG CARD [facility] Family History Problem Relation Age of Onset Other Mother Heart attack Father Other Father Other Father Other Maternal Grandmother Family Status - Relation Status Age at Mother Father Maternal Grandmother Level of Service:25638 OR OFFICE/OUTPATIENT ESTABLISHED LOW MDM 20-29 MIN Reason for Visit and Comments: Follow-up [084267] Hypertension [918299] Normal [facility] PROF CHEM 8 (BAS METB)on Anion gap [Moles/Vol] 12.9 mmol/L Normal [facility] Comment on above: Performed By: #### C BC #### [facility] [address] [address] [address] Yariel Herrera Calcium [Mass/Vol] 9.0 mg/dL Normal 8.5-10.1 [facility] Comment on above: Performed By: #### C BC #### [facility] [address] [address] [address] Yariel Herrera Chloride [Moles/Vol] 106 mmol/L Normal 98-107 [facility] Comment on above: Performed By: #### C BC #### [facility] [address] [address] [address] Yariel Herrera CO2 [Moles/Vol] 28.3 mmol/L Normal 21.0-32.0 [facility] Comment on above: Performed By: #### C BC #### [facility] [address] [address] [address] Yariel Herrera Creatinine [Mass/Vol] 0.81 mg/dL Normal 0.55-1.02 [facility] Comment on above: Performed By: #### C BC #### [facility] [address] [place] [address] Dr. Yariel Herrera EGFR-AF [place] >60 Normal >=60 [facility] Comment on above: Performed By: #### C BC #### [facility] [address] [address] [address] Yariel Herrera EGFR-NON AF [place] >60 Normal >=60 [facility] Comment on above: Performed By: #### C BC #### [facility] [address] [address] [address] Yariel Herrera Glucose [Mass/Vol] 103 mg/dL Normal 74-106 [facility] Comment on above: Performed By: #### C BC #### [facility] [address] [address] [address] Yariel Herrera Potassium [Moles/Vol] 4.2 mmol/L Normal 3.5-5.1 [facility] Comment on above: Performed By: #### C BC #### [facility] [address] [address] [address] Yariel Herrera Sodium [Moles/Vol] 143 mmol/L Normal 136-145 [facility] Comment on above: Performed By: #### C BC #### [facility] [address] [address] [address] Yariel Herrera Urea nitrogen [Mass/Vol] 9.0 mg/dL Normal 7.0-18.0 [facility] Comment on above: Performed By: #### C BC #### [facility] [address] [address] [address] Yariel Herrera Urea nitrogen/Creatinine [Mass ratio] 11.1 mg/mg Normal [facility] Comment on above: Performed By: #### C BC #### [facility] [address] [address] [address] Yariel Herrera ECHOCARDIO M/2D COMPLETEon 0 05-08-2022 ECHOCARDIO M/2D COMPLETE Patient: STEPHAN LÓPEZ Exam Date: 05/08/2022 : 1960 Gender:F Ordering : CARL WILLIS Admission #: [id number] Family : JANITOR AND CLEANER GAYLA MARTINEZ [employer] Order #: [id number] CLICK HERE TO VIEW EXAM ECHOCARDIOGRAM REPORT [...] M.D. on 05/08/2022 at 14:20 [address] [facility] ABHINAV by IFAon 01-08-2022 Antinuclear Antibodies, IFA Negative Normal [facility] Comment on above: Result Comment: Nega tive <1:80 Borderline 1:80 Positive >1:80 ICAP nomenclature: AC-0 For more information about Hep-2 cell patterns use ANApatterns.org, the official website for the International Consensus on Antinuclear Antibody (ABHINAV) Patterns (ICAP). Performed By: #### A LUC #### [facility] [address] [place] [address] Dr. Yariel Herrera CBC AUTO DIFFon 01-05-2022 BASO # 0.1 103/ul Normal 0.0-0.[address] [facility] Comment on above: Performed By: #### C BC #### [facility] [address] [place] [address] Dr. Yariel Herrera Basophils/100 WBC (Bld) 0.6 % Normal 0.2-2.[address] [facility] Comment on above: Performed By: #### C BC #### [facility] [address] [place] [address] Dr. Yariel Herrera EO # 0.2 103/ul Normal 0.0-0.[address] [facility] Comment on above: Performed By: #### C BC #### [facility] [address] [place] [address] Dr. Yariel Herrera Eosinophils/100 WBC (Bld) 1.4 % Normal 0.9-7.[address] [facility] Comment on above: Performed By: #### C BC #### [facility] [address] [place] [address] Dr. Yariel Herrera Erythrocyte distribution width (RBC) [Ratio] 13.6 % Normal 11.0-15.[address] [facility] Comment on above: Performed By: #### C BC #### [facility] [address] [place] [address] Dr. Yariel Herrera Hematocrit (Bld) [Volume fraction] 46.6 % Normal 36.0-48.[address] [facility] Comment on above: Performed By: #### C BC #### [facility] [address] [place] [address] Dr. Yariel Herrera Hemoglobin (Bld) [Mass/Vol] 15.4 g/dL Normal 12.0-16.[address] [facility] Comment on above: Performed By: #### C BC #### [facility] [address] [place] [address] Dr. Yariel Herrera IG # 0.03 10e3/ul Normal 0.00-0.03 [facility] Comment on above: Performed By: #### C BC #### [facility] [address] [place] [address] Dr. Yariel Herrera IG % 0.2 % Normal 0.0-0.5 [facility] Comment on above: Performed By: #### C BC #### [facility] [address] [place] [address] Dr. Yariel Herrera LYMPH # 4.2 103/ul Critically high 1.2-3.8 [facility] [place] Comment on above: Performed By: #### C BC #### [facility] [address] [place] [address] Dr. Yariel Herrera Lymphocytes/100 WBC (Bld) 31.3 % Normal 20.5-60.0 [facility] Comment on above: Performed By: #### C BC #### [facility] [address] [place] [address] Dr. Yariel Herrera MANUAL DIFF REQ NO Normal [facility] [place] Comment on above: Performed By: #### C BC #### [facility] [address] [place] [address] Dr. Yariel Herrera MCH (RBC) [Entitic mass] 31.6 pg Normal 26.7-34.0 [facility] Comment on above: Performed By: #### C BC #### [facility] [address] [place] [address] Dr. Yariel Herrera MCHC (RBC) [Mass/Vol] 33.0 g/dL Normal 29.9-35.[address] [facility] Comment on above: Performed By: #### C BC #### [facility] [address] [place] [address] Dr. Yariel Herrera MCV (RBC) [Entitic vol] 95.7 fL Normal 81.0-99.0 [facility] Comment on above: Performed By: #### C BC #### [facility] [address] [place] [address] Dr. Yariel Herrera MONO # 0.9 103/ul Critically high 0.3-0.[address] [facility] Comment on above: Performed By: #### C BC #### [facility] [address] [place] [address] Dr. Yariel Herrera Monocytes/100 WBC (Bld) 6.8 % Normal 1.7-12.0 [facility] Comment on above: Performed By: #### C BC #### [facility] [address] [address] [address] Yariel Herrera NEUT # 8.0 103/ul Critically high 1.4-6.[address] [facility] Comment on above: Performed By: #### C BC #### [facility] [address] [place] [address] Dr. Yariel Herrera Neutrophils/100 WBC (Bld) 59.7 % Normal 43.0-75.0 [facility] Comment on above: Performed By: #### C BC #### [facility] [address] [place] [address] Dr. Yariel Herrera Platelet mean volume (Bld) [Entitic vol] 10.7 fL Normal 9.5-13.[address] [facility] Comment on above: Performed By: #### C BC #### [facility] [address] [place] [address] Dr. Yariel Herrera PLT 340 103/ul Normal 150-[address] [facility] Comment on above: Performed By: #### C BC #### [facility] [address] [place] [address] Dr. Yariel Herrera RBC 4.87 106/ul Normal 4.20-5.[address] [facility] Comment on above: Performed By: #### C BC #### [facility] [address] [place] [address] Dr. Yariel Herrera WBC 13.4 103/ul Critically high 4.0-11.0 [facility] Comment on above: Performed By: #### C BC #### [facility] [address] [place] [address] Dr. Yariel Herrera FREE T4on 01-05-2022 Free T4 [Mass/Vol] 1.06 ng/dL Normal 0.76-1.46 [facility] Comment on above: Performed By: #### C BC #### [facility] [address] [place] [address] Dr. Yariel Herrera PROF 14(COMP METB)on 022 Albumin [Mass/Vol] 3.9 g/dL Normal 3.4-5.0 [facility] Comment on above: Performed By: #### C MP, TSH #### [facility] [address] [place] [address] Dr. Yariel Herrera Albumin/Globulin [Mass ratio] 1.1 {ratio} Normal [facility] Comment on above: Performed By: #### C MP, TSH #### [facility] [address] [place] [address] Dr. Yariel Herrera ALP [Catalytic activity/Vol] 99 U/L Normal 46-116 [facility] Comment on above: Performed By: #### C MP, TSH #### [facility] [address] [place] [address] Dr. Yariel Herrera ALT [Catalytic activity/Vol] 17 U/L Normal 14-59 [facility] Comment on above: Performed By: #### C MP, TSH #### [facility] [address] [place] [address] Dr. Yariel Herrera Anion gap [Moles/Vol] 10.1 mmol/L Normal [facility] Comment on above: Performed By: #### C MP, TSH #### [facility] [address] [place] [address] Dr. Yariel Herrera AST [Catalytic activity/Vol] 14 U/L Critically low 15-37 [facility] Comment on above: Performed By: #### C MP, TSH #### [facility] [address] [place] [address] Dr. Yariel Herrera Bilirubin [Mass/Vol] 0.3 mg/dL Normal 0.2-1.0 [facility] Comment on above: Performed By: #### C MP, TSH #### [facility] [address] [place] [address] Dr. Yariel Herrera Calcium [Mass/Vol] 9.4 mg/dL Normal 8.5-10.1 [facility] Comment on above: Performed By: #### C MP, TSH #### [facility] [address] [place] [address] Dr. Yariel Herrera Chloride [Moles/Vol] 103 mmol/L Normal 98-107 [facility] Comment on above: Performed By: #### C MP, TSH #### [facility] [address] [place] [address] Dr. Yariel Herrera CO2 [Moles/Vol] 30.9 mmol/L Normal 21.0-32.0 [facility] Comment on above: Performed By: #### C MP, TSH #### [facility] [address] [place] [address] Dr. Yariel Herrera Creatinine [Mass/Vol] 0.88 mg/dL Normal 0.55-1.02 [facility] Comment on above: Performed By: #### C MP, TSH #### [facility] [address] [place] [address] Dr. Yariel Herrera EGFR-AF [place] >60 Normal >=60 [facility] Comment on above: Performed By: #### C MP, TSH #### [facility] [address] [place] [address] Dr. Yariel Herrera EGFR-NON AF [place] >60 Normal >=60 [facility] Comment on above: Performed By: #### C MP, TSH #### [facility] [address] [place] [address] Dr. Yariel Herrera Globulin (S) [Mass/Vol] 3.5 g/dL Normal [facility] Comment on above: Performed By: #### C MP, TSH #### [facility] [address] [place] [address] Dr. Yariel Herrera Glucose [Mass/Vol] 117 mg/dL Critically high 74-106 [facility] [place] Comment on above: Performed By: #### C MP, TSH #### [facility] [address] [place] [address] Dr. Yariel Herrera Potassium [Moles/Vol] 4.0 mmol/L Normal 3.5-5.1 [facility] Comment on above: Performed By: #### C MP, TSH #### [facility] [address] [place] [address] Dr. Yariel Herrera Protein [Mass/Vol] 7.4 g/dL Normal 6.4-8.2 [facility] Comment on above: Performed By: #### C MP, TSH #### [facility] [address] [place] [address] Dr. Yariel Herrera Sodium [Moles/Vol] 140 mmol/L Normal 136-145 [facility] Comment on above: Performed By: #### C MP, TSH #### [facility] [address] [place] [address] Dr. Yariel Herrera Urea nitrogen [Mass/Vol] 18.0 mg/dL Normal 7.0-18.0 [facility] Comment on above: Performed By: #### C MP, TSH #### [facility] [address] [place] [address] Dr. Yariel Herrera Urea nitrogen/Creatinine [Mass ratio] 20.5 mg/mg Normal [facility] Comment on above: Performed By: #### C MP, TSH #### [facility] [address] [place] [address] Dr. Yariel Herrera TSHon 01-05-2022 TSH 1.380 uIU/mL Normal 0.358-3.740 [facility] Comment on above: Performed By: #### C MP, TSH #### [facility] [address] [place] [address] Dr. Yariel Herrera GLYCOHEMOGLOBIN A1Con 2021 ADA RECOMMENDATION SEE BELOW Normal [facility] Comment on above: Result Comment: ADA RECOMMENDED LIMIT 4.0 - 6.0 ADA THERAPEUTIC TARGET < 7.0 ACTION SUGGESTED > 7.0 Performed By: #### A 1C #### [facility] [address] [place] [address] Dr. Yariel Herrera Glucose [Mass/Vol] 137 mg/dL Normal [facility] Comment on above: Performed By: #### A 1C #### [facility] [address] [place], [place] [address] Dr. Yariel Herrera HbA1c (Bld) [Mass fraction] 6.4 % Critically high 4.5-6.[address] [facility] Comment on above: Performed By: #### A 1C #### [facility] [address], [place] [address] Dr. Yariel Herrera ECHOCARDIO M/2D COMPLETEon 0 10-16-2021 ECHOCARDIO M/2D COMPLETE Patient: STEPHAN LÓPEZ Exam Date: 10/16/2021 : 1960 Gender:F Ordering : CARL WILLIS Admission #: [id number] Family : Order #: [id number] CLICK HERE TO VIEW EXAM ECHOCARDIOGRAM REPORT [...] Melvin M.D. on 10/16/2021 at 17:12 Normal [facility] ECHOCARDIO M/2D COMPLETEon 0 09-16-2021 ECHOCARDIO M/2D COMPLETE Patient: STEPHAN LÓPEZ Exam Date: 09/16/2021 : 1960 Gender:F Ordering : GAURAV GAYLA MARTINEZ [facility] Admission #: [id number] Family : Order #: [id number] CLICK HERE TO VIEW EXAM ECHOCARDIOGRAM REPORT [...] Melvin M.D. on 09/17/2021 at 13:02 Normal [facility] CBC AUTO DIFFon 08-04-2021 BASO # 0.1 103/ul Normal 0.0-0.1 [facility] Comment on above: Performed By: #### C BC #### [facility] [address] [address] [address] Yariel Herrera Basophils/100 WBC (Bld) 0.6 % Normal 0.2-2.0 [facility] Comment on above: Performed By: #### C BC #### [facility] [address] [address] [address] Yariel Herrera EO # 0.1 103/ul Normal 0.0-0.7 [facility] Comment on above: Performed By: #### C BC #### [facility] [address] [place] [address] Dr. Yariel Herrera Eosinophils/100 WBC (Bld) 0.9 % Normal 0.9-7.0 [facility] Comment on above: Performed By: #### C BC #### [facility] [address] [place] [address] Dr. Yariel Herrera Erythrocyte distribution width (RBC) [Ratio] 13.8 % Normal 11.0-15.0 [facility] Comment on above: Performed By: #### C BC #### [facility] [address] [place] [address] Dr. Yariel Herrera Hematocrit (Bld) [Volume fraction] 47.1 % Normal 36.0-48.0 [facility] Comment on above: Performed By: #### C BC #### [facility] [address] [place] [address] Dr. Yariel Herrera Hemoglobin (Bld) [Mass/Vol] 15.2 g/dL Normal 12.0-16.0 [facility] Comment on above: Performed By: #### C BC #### [facility] [address] [place] [address] Dr. Yariel Herrera IG # 0.04 10e3/ul Critically high 0.00-0.03 [facility] Comment on above: Performed By: #### C BC #### [facility] [address] [place] [address] Dr. Yariel Herrera IG % 0.3 % Normal 0.0-0.5 [facility] Comment on above: Performed By: #### C BC #### [facility] [address] [address] [address] Yariel Herrera LYMPH # 3.7 103/ul Normal 1.2-3.8 [facility] Comment on above: Performed By: #### C BC #### [facility] [address] [address] [address] Yariel Herrera Lymphocytes/100 WBC (Bld) 30.6 % Normal 20.5-60.0 [facility] Comment on above: Performed By: #### C BC #### [facility] [address] [address] [address] Yariel Herrera MANUAL DIFF REQ NO Normal [facility] [place] Comment on above: Performed By: #### C BC #### [facility] [address] [place] [address] Dr. Yariel Herrera MCH (RBC) [Entitic mass] 32.0 pg Normal 26.7-34.0 [facility] Comment on above: Performed By: #### C BC #### [facility] [address] [place] [address] Dr. Yariel Herrera MCHC (RBC) [Mass/Vol] 32.3 g/dL Normal 29.9-35.2 [facility] Comment on above: Performed By: #### C BC #### [facility] [address] [place] [address] Dr. Yariel Herrera MCV (RBC) [Entitic vol] 99.2 fL Critically high 81.0-99.0 [facility] Comment on above: Performed By: #### C BC #### [facility] [address] [address] [address] Yariel Herrera MONO # 0.9 103/ul Critically high 0.3-0.8 [facility] [place] Comment on above: Performed By: #### C BC #### [facility] [address] [place] [address] Dr. Yariel Herrera Monocytes/100 WBC (Bld) 7.4 % Normal 1.7-12.0 [facility] Comment on above: Performed By: #### C BC #### [facility] [address] [address] [address] Yariel Herrera NEUT # 7.3 103/ul Critically high 1.4-6.5 [facility] [place] Comment on above: Performed By: #### C BC #### [facility] [address] [address] [address] Yariel Herrera Neutrophils/100 WBC (Bld) 60.2 % Normal 43.0-75.0 [facility] Comment on above: Performed By: #### C BC #### [facility] [address] [address] [address] Yariel Herrera Platelet mean volume (Bld) [Entitic vol] 11.7 fL Normal 9.5-13.5 [facility] Comment on above: Performed By: #### C BC #### [facility] [address] [place] [address] Dr. Yariel Herrera PLT 330 103/ul Normal 150-450 [facility] Comment on above: Performed By: #### C BC #### [facility] [address] [place] [address] Dr. Yariel Herrera RBC 4.75 106/ul Normal 4.20-5.40 [facility] Comment on above: Performed By: #### C BC #### [facility] [address] [place] [address] Dr. Yariel Herrera WBC 12.1 103/ul Critically high 4.0-11.0 [facility] Comment on above: Performed By: #### C BC #### [facility] [address] [place] [address] Dr. Yariel Herrera FREE T3on 08-04-2021 FREE T3 2.46 pg/mlL Normal 2.18-3.98 [facility] Comment on above: Performed By: #### C BC #### [facility] [address] [address] [address] Yariel Herrera FREE T4on 08-04-2021 Free T4 [Mass/Vol] 1.08 ng/dL Normal 0.76-1.46 [facility] Comment on above: Performed By: #### F T4 #### [facility] [address] [place] [address] Dr. Yariel Herrera PROF 14(COMP METB)on 022 Albumin [Mass/Vol] 4.2 g/dL Normal 3.4-5.0 [facility] Comment on above: Performed By: #### C BC #### [facility] [address] [place] [address] Dr. Yariel Herrera Albumin/Globulin [Mass ratio] 1.2 {ratio} Normal [facility] Comment on above: Performed By: #### C BC #### [facility] [address] [place] [address] Dr. Yariel Herrera ALP [Catalytic activity/Vol] 87 U/L Normal 46-116 [facility] Comment on above: Performed By: #### C BC #### [facility] [address] [place] [address] Dr. Yariel Herrera ALT [Catalytic activity/Vol] 25 U/L Normal 14-59 [facility] Comment on above: Performed By: #### C BC #### [facility] [address] [place] [address] Dr. Yariel Herrera Anion gap [Moles/Vol] 13.3 mmol/L Normal [facility] Comment on above: Performed By: #### C BC #### [facility] [address] [place] [address] Dr. Yariel Herrera AST [Catalytic activity/Vol] 15 U/L Normal 15-[address] [facility] Comment on above: Performed By: #### C BC #### [facility] [address] [place] [address] Dr. Yariel Herrera Bilirubin [Mass/Vol] 0.5 mg/dL Normal 0.2-1.0 [facility] Comment on above: Performed By: #### C BC #### [facility] [address] [place] [address] Dr. Yariel Herrera Calcium [Mass/Vol] 9.6 mg/dL Normal 8.5-10.1 [facility] Comment on above: Performed By: #### C BC #### [facility] [address] [address] [address] Yariel Herrera Chloride [Moles/Vol] 103 mmol/L Normal 98-107 [facility] Comment on above: Performed By: #### C BC #### [facility] [address] [address] [address] Yariel Herrera CO2 [Moles/Vol] 28.9 mmol/L Normal 21.0-32.0 [facility] Comment on above: Performed By: #### C BC #### [facility] [address] [place] [address] Dr. Yariel Herrera Creatinine [Mass/Vol] 0.84 mg/dL Normal 0.55-1.02 [facility] Comment on above: Performed By: #### C BC #### [facility] [address] [place] [address] Dr. Yariel Herrera EGFR-AF [place] >60 Normal >=60 [facility] Comment on above: Performed By: #### C BC #### [facility] [address] [place] [address] Dr. Yariel Herrera EGFR-NON AF [place] >60 Normal >=60 [facility] Comment on above: Performed By: #### C BC #### [facility] [address] [place] [address] Dr. Yariel Herrera Globulin (S) [Mass/Vol] 3.4 g/dL Normal [facility] Comment on above: Performed By: #### C BC #### [facility] [address] [place] [address] Dr. Yariel Herrera Glucose [Mass/Vol] 111 mg/dL Critically high 74-106 [facility] Comment on above: Performed By: #### C BC #### [facility] [address] [place] [address] Dr. Yariel Herrera Potassium [Moles/Vol] 4.2 mmol/L Normal 3.5-5.1 [facility] Comment on above: Performed By: #### C BC #### [facility] [address] [place] [address] Dr. Yariel Herrera Protein [Mass/Vol] 7.6 g/dL Normal 6.4-8.2 [facility] Comment on above: Performed By: #### C BC #### [facility] [address] [place] [address] Dr. Yariel Herrera Sodium [Moles/Vol] 141 mmol/L Normal 136-145 [facility] Comment on above: Performed By: #### C BC #### [facility] [address] [place] [address] Dr. Yariel Herrera Urea nitrogen [Mass/Vol] 15.0 mg/dL Normal 7.0-18.0 [facility] Comment on above: Performed By: #### C BC #### [facility] [address] [place] [address] Dr. Yariel Herrera Urea nitrogen/Creatinine [Mass ratio] 17.9 mg/mg Normal [facility] Comment on above: Performed By: #### C BC #### [facility] [address] [place] [address] Dr. Yariel Herrera TSHon 08-04-2021 TSH 1.073 uIU/mL Normal 0.358-3.740 [facility] Comment on above: Performed By: #### C BC #### [facility] [address] [place] [address] Dr. Yariel Herrera TSH RANGE SEE BELOW Normal [facility] Comment on above: Result Comment: <0.3 4 UIU/ml HYPERTHYROID 0.34-5.60 UIU/ml EUTHYROID >5.60 UIU/ml HYPOTHYROID Performed By: #### C BC #### [facility] [address] [place] [address] Dr. Yariel Herrera Vital Signs Date Time Vital Sign Value Performing Clinician Judy lity 04-04-2024 15:47-0500 Body mass index (BMI) [Ratio] 21.37 kg/m2 Gayla Martinez ENGINE ASSEMBLER Work Phone: [facility] 04-04-2024 15:47-0500 Body temperature 98.49 [degF] Gayla Aichholz ENGINE ASSEMBLER Work Phone: [facility] 04-04-2024 15:47-0500 Body weight 60.06 kg Gayla Aichholz ENGINE ASSEMBLER Work Phone: [facility] 04-04-2024 15:47-0500 Diastolic blood pressure 80 mm[Hg] Gayla Aichholz ENGINE ASSEMBLER Work Phone: [facility] 04-04-2024 15:47-0500 Heart rate 85 /min Gayla Aichholz ENGINE ASSEMBLER Work Phone: [facility] 04-04-2024 15:47-0500 Respiratory rate 18 /min Gayla Aichholz ENGINE ASSEMBLER Work Phone: [facility] 04-04-2024 15:47-0500 SaO2% (BldA) [Mass fraction] 96 % Gayla Aichholz ENGINE ASSEMBLER Work Phone: [facility] 04-04-2024 15:47-0500 Systolic blood pressure 124 mm[Hg] Gayla Aichholz ENGINE ASSEMBLER Work Phone: [facility] 12-06-2023 10:35-0400 Body height 167.6 cm Gayla Aichholz ENGINE ASSEMBLER Work Phone: [facility] 12-06-2023 10:35-0400 Body mass index (BMI) [Ratio] 21.21 kg/m2 Gayla Aichholz ENGINE ASSEMBLER Work Phone: [facility] 12-06-2023 10:35-0400 Body temperature 98.29 [degF] Gayla Aichholz ENGINE ASSEMBLER Work Phone: [facility] 12-06-2023 10:35-0400 Body weight 59.6 kg Gayla Aichholz ENGINE ASSEMBLER Work Phone: [facility] 12-06-2023 10:35-0400 Diastolic blood pressure 78 mm[Hg] Gayla Aichholz ENGINE ASSEMBLER Work Phone: [facility] 12-06-2023 10:35-0400 Heart rate 71 /min Gayla Aichholz ENGINE ASSEMBLER Work Phone: [facility] 12-06-2023 10:35-0400 Respiratory rate 18 /min Gayla Tamaraz ENGINE ASSEMBLER Work Phone: [facility] 12-06-2023 10:35-0400 SaO2% (BldA) [Mass fraction] 100 % Gayla Fabyhholz ENGINE ASSEMBLER Work Phone: [facility] 12-06-2023 10:35-0400 Systolic blood pressure 118 mm[Hg] Gayla Tamaraz ENGINE ASSEMBLER Work Phone: [facility] Healthcare Encounters Encounter Date Encounter Type Care Provider Facility Start: 04-04-2024 End: 04-04-2024 Office outpatient visit 25 minutes Gayla Martinez ENGINE ASSEMBLER Work Phone: [facility] Comment on above: Controlled type 2 di abetes mellitus without complication, without long-term current use of insulin (CMS/HCC) (Primary Dx); Other thrombotic microangiopathy (CMS/HCC); Centrilobular emphysema (CMS/HCC); Munoz's esophagus with esophagitis; Degeneration of intervertebral disc of lumbar 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; Mixed hyperlipidemia (CMS/HCC); Screening for lung cancer; Cigarette nicotine dependence without complication Start: 04-04-2024 End: 04-04-2024 ambulatory GAYLA AICHHOLZ Not Available Start: 04-04-2024 End: 04-04-2024 Bamboo flowsheet Gayla Aichholz ENGINE ASSEMBLER Work Phone: [facility] Start: 04-04-2024 End: 04-04-2024 Bamboo flowsheet Gayla Aichholz ENGINE ASSEMBLER Work Phone: [facility] Start: 03-28-2024 End: 03-28-2024 Refill Gayla Aichholz ENGINE ASSEMBLER Work Phone: [facility] Comment on above: Centrilobular emphys mathew (CMS/HCC); Degeneration of intervertebral disc of lumbar 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 Start: 03-16-2024 End: 03-16-2024 ambulatory Dasha Waggoner PA-C Facility:[facility] Start: 02-28-2024 End: 02-28-2024 [facility] Facility[facility] Start: 01-27-2024 End: 01-27-2024 Refill Gayla Aichholz ENGINE ASSEMBLER Work Phone: [facility] Comment on above: Controlled type 2 di abetes mellitus without complication, without long-term current use of insulin (CMS/HCC) (Primary Dx) Start: 01-25-2024 End: 01-25-2024 Refill Gayla Aichholz ENGINE ASSEMBLER Work Phone: [facility] Comment on above: Degeneration of inte rvertebral disc of lumbar 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 Start: 01-14-2024 End: 01-14-2024 ambulatory [facility] Start: 12-28-2023 End: 12-28-2023 Refill Gayla Aichholz ENGINE ASSEMBLER Work Phone: [facility] Comment on above: Degeneration of inte rvertebral disc of lumbar 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 (Primary Dx) Start: 12-22-2023 End: 12-22-2023 Refill Gayla Aichholz ENGINE ASSEMBLER Work Phone: [facility] Comment on above: Centrilobular emphys mathew (CMS/HCC) Start: 12-21-2023 End: 12-21-2023 Refill Gayla Aichholz ENGINE ASSEMBLER Work Phone: [facility] Comment on above: ETD (Eustachian tube dysfunction), left; Mixed hyperlipidemia (CMS/HCC); Centrilobular emphysema (CMS/HCC); Controlled type 2 diabetes mellitus without complication, without long-term current use of insulin (CMS/HCC); Munoz's esophagus with esophagitis Start: 12-06-2023 End: 12-06-2023 Bamboo flowsheet Gayla Aichholz ENGINE ASSEMBLER Work Phone: [facility] Start: 12-06-2023 End: 12-10-2023 Bamboo flowsheet Gayla Michelle ENGINE ASSEMBLER Work Phone: [facility] Start: 12-06-2023 End: 12-10-2023 Clinisync Result Encounter Gayla Fabytuckerdouglas ENGINE ASSEMBLER Work Phone: [facility] Unsolicited Start: 12-06-2023 End: 12-06-2023 Patient encounter procedure Gayla Motleydouglas ENGINE ASSEMBLER Work Phone: [facility] Start: 12-06-2023 End: 12-06-2023 Periodic preventive med est patient 40-64yrs Gayla Michelle ENGINE ASSEMBLER Work Phone: [facility] Comment on above: Encounter for well w stephany exam with routine gynecological exam (Primary Dx); Encounter for screening mammogram for malignant neoplasm of breast; Screening for cervical cancer; Needs flu shot Start: 12-06-2023 End: 12-06-2023 ambulatory GAYLA MARTINEZ Not Available Start: 11-22-2023 End: 11-22-2023 ambulatory Lara Mar MD Facility: [facility] Start: 10-26-2023 End: 10-26-2023 ambulatory Dasha Waggoner PA-C Facility:[facility] Start: 09-27-2023 End: 09-27-2023 ambulatory Lara Mar MD [facility]: [facility] Start: 08-30-2023 End: 08-30-2023 ambulatory Lara Mar MD Facility: [facility] Start: 07-27-2023 End: 07-27-2023 ambulatory GAYLA MARTINEZ Not Available Start: 07-05-2023 End: 07-05-2023 ambulatory Lara Mar MD Facility: [facility] Start: 06-14-2023 End: 06-14-2023 ambulatory Lara Mar MD Facility: [facility] Start: 05-25-2023 End: 05-25-2023 ambulatory Dasha Waggoner PA-C Facility:[facility] Start: 05-10-2023 End: 05-10-2023 ambulatory Lara Mar MD Facility:[facility] Start: 05-04-2023 End: 05-04-2023 ambulatory Delfino Snider III, MD Facility:[facility] Start: 04-26-2023 End: 04-26-2023 ambulatory GAYLA MICHELLE Not Available Start: 04-08-2023 Clinisync Result Encounter Lis a Michelle ENGINE ASSEMBLER Work Phone: [facility] Unsolicited Start: 04-08-2023 Clinisync Result Encounter Lis a Michelle ENGINE ASSEMBLER Work Phone: [facility] Unsolicited Start: 04-07-2023 Refill Gayla Michelle ENGINE ASSEMBLER Work Phone: [facility] Comment on above: COPD with exacerbati on (CMS/HCC) (Primary Dx) Start: 01-19-2023 End: 01-19-2023 ambulatory [facility] Start: 06-17-2022 End: 06-18-2022 ambulatory INA JOHNSON Facility:[facility] Start: 05-08-2022 End: 05-09-2022 ambulatory MOHAMAD ALGHOTHANI Facility:[facility] Start: 01-05-2022 End: 01-06-2022 ambulatory MOHAMAD ALGHOTHANI Facility:[facility] Start: 11-05-2021 End: 11-06-2021 ambulatory JANITOR AND CLEANER GAYLA AICHHOLZ Facility:[facility] Start: 10-16-2021 End: 10-17-2021 ambulatory MOHAMAD ALGHOTHANI Facility:[facility] Start: 09-16-2021 End: 09-17-2021 ambulatory JANITOR AND CLEANER GAYLA AICHHOLZ Facility:[facility] Start: 08-04-2021 End: 08-05-2021 ambulatory JANITOR AND CLEANER GAYLA AICHHOLZ Facility:[facility] Procedures Date Procedure Procedure Detail Performing Clinician Start: 04-04-2024 Hemoglobin glycosyla tresa a1c Gayla Michelle ENGINE ASSEMBLER Work Phone: Start: 03-22-2024 Mammography Gayla Ruiz justus ENGINE ASSEMBLER Work Phone: Start: 12-06-2023 IGP,APTIMA HPV,AGE GDLN Gayla Hobbsleno ENGINE ASSEMBLER Work Phone: Start: 12-06-2023 Microscopic observat ion [Identifier] in Cervix by Cyto stain Gayla Hobbsleno ENGINE ASSEMBLER Work Phone: Start: 04-08-2023 [facility] Gayla Motleydouglas ENGINE ASSEMBLER Work Phone: Start: 12-03-2022 Mammography Gayla Ruiz justus ENGINE ASSEMBLER Work Phone: Start: 09-08-2021 Colonoscopy Gayla terrellhamilton ENGINE ASSEMBLER Work Phone: Start: 04-20-2013 Colonoscopy Gayla Ruiz justus ENGINE ASSEMBLER Work Phone: Plan of Treatment Date Care Activity Detail Author Start: 12-05-2026 Screening for malign ant neoplasm of cervix [facility] Start: 09-08-2026 Screening for malign ant neoplasm of colon [facility] Start: 07-20-2025 Glaucoma screening Diabetes: R etinopathy Screening [facility] Start: 03-22-2025 Screening for malign ant neoplasm of breast Mammogram [facility] Start: 10-02-2024 Hemoglobin A1c measurement Diabetes: Hemoglobin A1C [facility] Start: 07-25-2024 Urine screening for protein Diabetes: Urine Protein Screening [facility] Start: 07-03-2024 End: 07-03-2024 Patient encounter procedure 07/03/2024 2:00 PM EDT Office Visit [facility] [address] [place] [phone] Gayla Martinez NP [address] [place] [phone] [facility] Start: 04-04-2024 End: 04-04-2024 Patient encounter procedure 04/04/2024 3:40 PM EST Office Visit [facility] [address] [place] [address] Gayla Martinez, ROSI [address] [place] [phone] Centrilobular emphysema (CMS/HCC) (Primary Dx); Other thrombotic microangiopathy (CMS/HCC); Munoz's esophagus with esophagitis; Degeneration of intervertebral disc of lumbar 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; Controlled type 2 diabetes mellitus without complication, without long-term current use of insulin (CMS/HCC); Mixed hyperlipidemia (CMS/HCC) [facility] Comment on above: Centrilobular emphys mathew (CMS/HCC) (Primary Dx); Other thrombotic microangiopathy (CMS/HCC); Munoz's esophagus with esophagitis; Degeneration of intervertebral disc of lumbar 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; Controlled type 2 diabetes mellitus without complication, without long-term current use of insulin (CMS/HCC); Mixed hyperlipidemia (CMS/HCC) Start: 04-04-2024 End: 04-04-2025 CT Chest for screening WO contrast CT lung screening low dose Imaging Routine Screening for lung cancer Cigarette nicotine dependence without complication Expected: 04/04/2024 (Approximate), Expires: 04/04/2025 [facility] Work Phone: Comment on above: Expected: 04/04/2024 (Approximate), Expires: 04/04/2025 Start: 03-30-2024 End: 03-30-2024 Patient encounter procedure 03/30/2024 9:20 AM EST Office Visit [facility] [address] [place] [address] Gayla Martinez, ROSI [address] [place] [phone] [facility] Start: 03-06-2024 End: 03-06-2024 Patient encounter procedure 03/06/2024 9:20 AM EST Office Visit [facility] [address] [place] [address] Gayla Martinez, ROSI [address] [place] [phone] [facility] Start: 01-25-2024 Hemoglobin A1c measurement Diabetes: Hemoglobin A1C [facility] Start: 12-06-2023 End: 2025 MG Breast - bilateral Screening Bilateral screening mammogram Imaging Routine Encounter for screening mammogram for malignant neoplasm of breast Expected: 12/06/2023 (Approximate), Expires: 2025 [facility] Work Phone: Comment on above: Expected: 12/06/2023 (Approximate), Expires: 2025 Start: 12-06-2023 End: 12-05-2024 THIN PREP TIS PAP AND HR HPV DNA THIN PREP TIS PAP AND HR HPV DNA Pathology and Cytology Routine Encounter for well woman exam with routine gynecological exam Expected: 12/06/2023 (Approximate), Expires: 12/05/2024 [facility] Comment on above: Expected: 12/06/2023 (Approximate), Expires: 12/05/2024 Start: 12-06-2023 End: 12-06-2023 Patient encounter procedure 12/06/2023 10:30 AM EDT Procedure Visit [facility] [address] [place] [address] Gayla Martinez, ROSI [address] [place] [phone] Encounter for screening mammogram for malignant neoplasm of breast (Primary Dx) [facility] Comment on above: Encounter for screen ing mammogram for malignant neoplasm of breast (Primary Dx) Start: 12-04-2023 Screening for malign ant neoplasm of breast Mammogram [facility] Start: 10-24-2023 Influenza vaccination Influenza Vacc ine (#1) [facility] Start: 08-22-2023 Influenza vaccination Influenza Vacc ine (#1) [facility] Comment on above: Postponed from 10/23 (Other Medical Reasons) Start: 07-24-2023 Screening for malign ant neoplasm of cervix Cervical Cancer Screening [facility] Comment on above: Postponed from 02/03 (Other Medical Reasons) Start: 05-30-2023 Urine screening for protein Diabetes: Urine Protein Screening [facility] Start: 04-26-2023 Glaucoma screening Diabetes: R etinopathy Screening [facility] Comment on above: Postponed from 02/03 (Other Medical Reasons) Start: 04-26-2023 End: 04-26-2023 Patient encounter procedure 04/26/2023 9:00 AM EST Office Visit [facility] [address] [place] [address] Gayla Martinez, ROSI [address] [place] [phone] [facility] Start: 03-05-2023 Hemoglobin A1c measurement Diabetes: Hemoglobin A1C [facility] Start: 02-03-1990 Screening for malign ant neoplasm of cervix [facility] Start: 02-03-1981 Screening for malign ant neoplasm of cervix Pap Smear [facility] Start: 1960 Screening for malign ant neoplasm of colon [facility] Immunizations Immunization Date Immunization Notes Care Provider [facility] 12-06-2023 Influenza, injectabl e, Madin Rosemary Canine Kidney, preservative free, quadrivalent Gayla Aichholz ENGINE ASSEMBLER Work Phone: [facility] 07-30-2023 zoster vaccine recombinant L tammy Aichholz ENGINE ASSEMBLER Work Phone: [facility] 08-12-2022 zoster vaccine recombinant L tammy Aichholz ENGINE ASSEMBLER Work Phone: [facility] 01-06-2022 Influenza, injectabl e, Madin [place] Canine Kidney, preservative free, quadrivalent Gayla Aichholz ENGINE ASSEMBLER Work Phone: [facility] 01-06-2022 Pneumococcal Conjuga te PCV 20 Gayla Aichholz ENGINE ASSEMBLER Work Phone: [facility] 01-06-2022 influenza virus vacc ine, unspecified formulation Gayla Aichholz ENGINE ASSEMBLER Work Phone: [facility] 11-20-2013 influenza virus vacc ine, whole virus Gayla Martinez ENGINE ASSEMBLER Work Phone: [facility] 03-06-2013 influenza virus vacc ine, whole virus Gayla Martinez ENGINE ASSEMBLER Work Phone: [facility] 01-22-2012 pneumococcal polysaccharide vaccine, 23 valent Gayla Martinez ENGINE ASSEMBLER Work Phone: [facility] Healthcare Payers Date Payer Category Payer Medicaid [employer] [place] [id number] 2022-Present [address] [place] [address] [id number] 2022 Private Health Insurance [id number]. [id number] 1960 Unknown [id number] 2.16.840.1.731189.3.579.2. 593 1960 Unknown [id number] 2.16.840.1.348187.3.579.2. 593 1960 Unknown [id number] 2.16.840.1.939921.3.579.2. 593 1960 Unknown [id number] 2.16.840.1.499685.3.579.2. 593 1960 Unknown [id number] 2.16.840.1.264279.3.579.2. 593 1960 Unknown [id number] 2.16.840.1.810851.3.579.2. 593 1960 Unknown [id number] 2.16.840.1.949635.3.579.2. 593 1960 Unknown [id number] 2.16.840.1.029265.3.579.2. 196 1960 Unknown [id number] 2.16.840.1.345345.3.579.2. 196 1960 Unknown [id number] 2.16.840.1.679505.3.579.2. 196 1960 Unknown [id number] 2.16.840.1.454538.3.579.2. 196 1960 Unknown [id number] 2.16.840.1.386305.3.579.2. 196 1960 Unknown [id number] 2.16.840.1.888697.3.579.2. 1960 Unknown [id number] 2.16.840.1.115563.3.579.2. 1960 Unknown [id number] 2.16.840.1.448134.3.579.2. 1960 Unknown [id number] 2.16.840.1.828184.3.579.2. 196 1960 Unknown [id number] 2.16.840.1.558647.3.579.2. 196 1960 Unknown [id number] 2.16.840.1.452744.3.579.2. 1960 Unknown [id number] 2.16.840.1.059524.3.579.2. 196 1960 Unknown [id number] 2.16.840.1.790457.3.579.2. 9 1960 Unknown [id number] 2.16.840.1.017016.3.579.2. 9 1960 Unknown [id number] 2.16.840.1.125951.3.579.2. 9 1960 Unknown [id number] 2.16.840.1.615934.3.579.2. 1259 1959 Unknown [id number] 1959 Unknown [id number] Social History Date Type Detail Facility Start: 01-25-2023 Tobacco smoking status [facility] Smokes t obacco daily [facility] History of tobacco use Cigarette Smoker [facility] Start: 01-25-2023 End: 04-19-2023 Cigarettes smoked current (pack per day) - Reported 0.5 [facility] Start: 01-25-2023 Tobacco use and exposure Smoke less tobacco non-user [facility] Start: 02-08-2023 End: 04-04-2024 Alcohol intake Lifetime non-drinker (finding) [facility] Start: 01-25-2023 End: 04-19-2023 Tobacco use panel [facility] Start: 1960 Sex Assigned At Not on file [facility] Do you belong to any clubs or organizations such as mormon groups, unions, fraternal or athletic groups, or [...] Equipment Origin al Text Equipment Identifier Dates [id number] End: 01-27-2024 Once a daily Use as instructed [id number] Start: 05-03-2023 End: 05-02-2024 1 each by Other route Daily Use as instructed [id number] Start: 01-27-2024 End: 05-06-2024 Clinical Notes 01-19-2023 to 04-04-2024 Gayla Martinez NP - 04/04/2024 5:15 PM Ching Martinez, ROSI - 04/04/2024 5:10 PM JALIL ZAVALA - 04/04/2024 3:40 PM Ching Martinez, ROSI - 04/04/2024 3:40 PM EST Note Date & Type Note Facility 04-04-2024 History of Present illness Narrative Associated Problem(s): Cigarette nicotine dependence without complication The patient has been advised of the risks of continued smoking: stroke, SD, all forms of cancer, lung disease, and . Options for quitting smoking include: cold turkey, hypnosis, acupuncture, nicotine replacement meds (gum, lozenges, and patches), Buproprion, and Varenicline. At this time pt is encouraged to evaluate their goals for wanting to quit smoking, and reach out to provider when ready to start this process Associated Problem(s): Screening for lung cancer Patient meets requirements for low dose CT scan for lung cancer screening: age 55-80, patient is a current smoker or has quit in the last 15 years. Smoking history is > or equal to 30 pack-year. If needed the patient is able or willing to receive treatment. The patient is not currently exhibiting any s/s of lung cancer. We have discussed the benefits as well as harms of screening, follow up testing if needed, false positive rates. We have also discussed that this type of CT scan has less radiation exposure than a traditional lung CT scan. We have also discussed that it is important to follow with annual screening for this. The patient has also been counseled on the importance of smoking cessation. Small scabs on pt upper back that itch she has had for a few days. Pt had a fu with surgeon recently she is getting xrays done on her spine for sagittal imbalance and scoliosis Images from the original note were not included. Stephan López is a 64 y.o. female presents with chief complaint of No chief complaint on file. HPI: Hypertension This is a chronic problem. The current episode started more than 1 year ago. The problem is unchanged. The problem is controlled. Pertinent negatives include no blurred vision, chest pain, headaches, palpitations, peripheral edema or shortness of breath. There are no associated agents to hypertension. Risk factors for coronary artery disease include diabetes mellitus, dyslipidemia, sedentary lifestyle, smoking/tobacco exposure and post-menopausal state. Past treatments include CONSTANZA inhibitors. The current treatment provides significant improvement. There are no compliance problems. Diabetes She has type 2 diabetes mellitus. Her disease course has been stable. There are no hypoglycemic associated symptoms. Pertinent negatives for hypoglycemia include no dizziness, headaches, nervousness/anxiousness, seizures or tremors. Associated symptoms include polyuria. Pertinent negatives for diabetes include no blurred vision, no chest pain, no foot paresthesias, no polydipsia, no polyphagia and no visual change. There are no hypoglycemic complications. Symptoms are stable. There are no diabetic complications. Risk factors for coronary artery disease include diabetes mellitus, dyslipidemia, hypertension, sedentary lifestyle and tobacco exposure. Current diabetic treatment includes oral agent (monotherapy). She is compliant with treatment all of the time. She is following a generally healthy diet. Her overall blood glucose range is 130-140 mg/dl. An CONSTANZA inhibitor/angiotensin II receptor radha is being taken. She does not see a instrumentation fitter.Eye exam is current. Back Pain This is a chronic problem. The current episode started more than 1 year ago. The problem occurs constantly. The problem has been waxing and waning since onset. The pain is present in the lumbar spine. The quality of the pain is described as aching. The pain is at a severity of 6/10. The pain is moderate. The pain is The same all the time. The symptoms are aggravated by standing. Stiffness is present All day. Pertinent negatives include no abdominal pain, bladder incontinence, bowel incontinence, chest pain, dysuria, fever, headaches, numbness, paresthesias, perianal numbness or tingling. Risk factors include menopause and sedentary lifestyle. Treatments tried: surgery, NSAID, pain meds, muscle relaxers, PT, surgery. The treatment provided moderate relief. SUBJECTIVE: MEDICATIONS: Current Outpatient Medications Medication Instructions atorvastatin (LIPITOR) 20 mg, Oral, Nightly Blood Glucose Monitoring Suppl (True Metrix Meter) w/Device kit 1 each, Does not apply, Daily fluticasone (Flonase) 50 MCG/ACT nasal spray 2 sprays, Each Nostril, Daily, Shake gently. Before first use, prime pump. After use, clean tip and replace cap. Ywzeffweixo-Odoaammwk-Tojysk (Trelegy Ellipta) 100-62.5-25 MCG/ACT aerosol powder 1 puff, Inhalation, Daily, Rinse mouth after use glucose blood (Cool Blood Glucose Test Strips) test strip Once a daily Use as instructed glucose blood (True Metrix Blood Glucose Test) test strip 1 each, Other, Daily, Use as instructed Lancets misc 1 Device, Daily PRN lisinopril 10 mg, Daily loratadine (CLARITIN) 10 mg, Oral, Daily meloxicam (MOBIC) 15 mg, Oral, Daily metFORMIN (GLUCOPHAGE) 500 mg, Oral, Daily with breakfast omeprazole (PRILOSEC) 40 mg, Oral, Daily tiZANidine (Zanaflex) 4 MG tablet 1 tablet, Every 12 hours PRN traMADol (ULTRAM) 50 mg, Every 12 hours PRN ALLERGIES: Allergies Allergen Reactions Pregabalin Hallucinations REVIEW OF SYMPTOMS: Review of Systems Constitutional: Negative for appetite change, chills and fever. HENT: Negative for congestion, ear pain and sore throat. Eyes: Negative for blurred vision, pain, discharge, redness and visual disturbance. Respiratory: Negative for cough, shortness of breath and wheezing. Cardiovascular: Negative for chest pain, palpitations and leg swelling. Gastrointestinal: Negative for abdominal pain, blood in stool, bowel incontinence, constipation, diarrhea, nausea and vomiting. Genitourinary: Negative for bladder incontinence, difficulty urinating, dysuria and frequency. Musculoskeletal: Positive for back pain. Negative for arthralgias, joint swelling and myalgias. Skin: Negative for rash and wound. Neurological: Negative for dizziness, tingling, tremors, seizures, syncope, numbness, headaches and paresthesias. Psychiatric/Behavioral: Negative for behavioral problems, self-injury and suicidal ideas. The patient is not nervous/anxious. Hematological: Does not bruise/bleed easily. Endocrine: Positive for polyuria. Negative for polydipsia and polyphagia. Allergic/Immunologic: Negative for environmental allergies and food allergies. 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 OBJECTIVE: Visit Vitals BP 124/80 (BP Location: Left arm, Patient Position: Sitting, BP Cuff Size: Adult long) Pulse 85 Temp 98.5 F (Temporal) Resp 18 Wt 132 lb 6.4 oz SpO2 96% BMI 21.37 kg/m Smoking Status Every Day BSA 1.67 m Physical Exam Vitals and nursing note reviewed. Constitutional: General: She is not in acute distress. Appearance: Normal appearance. She is not ill-appearing. HENT: Head: Normocephalic and atraumatic. Right Ear: External ear normal. Left Ear: External ear normal. Nose: Nose normal. Mouth/Throat: Mouth: Mucous membranes are moist. Eyes: Extraocular Movements: Extraocular movements intact. Conjunctiva/sclera: Conjunctivae normal. Neck: Vascular: No carotid bruit. Cardiovascular: Rate and Rhythm: Normal rate and regular rhythm. Pulses: Normal pulses. Heart sounds: Normal heart sounds. No murmur heard. Pulmonary: Effort: Pulmonary effort is normal. No respiratory distress. Breath sounds: Normal breath sounds. No wheezing or rhonchi. Abdominal: General: Bowel sounds are normal. There is no distension. Palpations: Abdomen is soft. There is no mass. Tenderness: There is no abdominal tenderness. Musculoskeletal: Cervical back: Normal range of motion and neck supple. Right lower leg: No edema. Left lower leg: No edema. Comments: Limited lumbar ROM, guarded movements Lymphadenopathy: Cervical: No cervical adenopathy. Skin: General: Skin is warm and dry. Capillary Refill: Capillary refill takes 2 to 3 seconds. Findings: No rash. Neurological: General: No focal deficit present. Mental Status: She is alert and oriented to person, place, and time. Psychiatric: Mood and Affect: Mood normal. Behavior: Behavior normal. Thought Content: Thought content normal. Judgment: Judgment normal. ASSESSMENT AND PLAN: Follow up in about 3 months (around 07/02/2024). Problem List Items Addressed This Visit Controlled type 2 diabetes mellitus without complication, without long-term current use of insulin ([facility]) Check blood sugars daily, notify if <70 or >200. Take medications (pills or insulin) as directed. Monitor for s/s of hypoglycemia (sweaty, dizziness, nausea, vomiting, or shakiness). Watch for increase in thirst, urination, or appetite. Inspect feet frequently monitoring for open wounds , and also recommend yearly eye exam. Pt should attempt to remain as physically active as chronic conditions allow, as well as trying to follow a diet low in carbohydrates, and simple sugars. Current meds: statin, constanza, metformin A1c: 6.1% 04/04/24 Relevant Orders POCT glycosylated hemoglobin (Hb A1C) docked device (Completed) DDD (degenerative disc disease), lumbar Continue with pain mgmt Hyperlipidemia (CMS/HCC) Continue with statin Check labs yearly and prn dose changes Munoz's esophagus with esophagitis Recommendations: freq small meals, nothing to eat or drink at least 2 hours prior to bed, limit caffeine, alcohol, as well as spicy foods Meds to limit or avoid if possible: NSAIDS Elevate HOB if possible Continue with omeprazole Next scope due 2026 COPD with emphysema (CMS/HCC) - Primary Current meds: trelegy Will order rescue inhaler prn Relevant Medications albuterol HFA 90 mcg/act inhaler Other thrombotic microangiopathy ([facility]) Has seen hematology for this Will have to see if ok to have ASA for DM Screening for lung cancer Patient meets requirements for low dose CT scan for lung cancer screening: age 55-80, patient is a current smoker or has quit in the last 15 years. Smoking history is > or equal to 30 pack-year. If needed the patient is able or willing to receive treatment. The patient is not currently exhibiting any s/s of lung cancer. We have discussed the benefits as well as harms of screening, follow up testing if needed, false positive rates. We have also discussed that this type of CT scan has less radiation exposure than a traditional lung CT scan. We have also discussed that it is important to follow with annual screening for this. The patient has also been counseled on the importance of smoking cessation. Relevant Orders CT lung screening low dose Cigarette nicotine dependence without complication The patient has been advised of the risks of continued smoking: stroke, SD, all forms of cancer, lung disease, and . Options for quitting smoking include: cold turkey, hypnosis, acupuncture, nicotine replacement meds (gum, lozenges, and patches), Buproprion, and Varenicline. At this time pt is encouraged to evaluate their goals for wanting to quit smoking, and reach out to provider when ready to start this process Relevant Orders CT lung screening low dose Associated Problem(s): Tobacco dependence syndrome (Deleted) The patient has been advised of the risks of continued smoking: stroke, SD, all forms of cancer, lung disease, and . Options for quitting smoking include: cold turkey, hypnosis, acupuncture, nicotine replacement meds (gum, lozenges, and patches), Buproprion, and Varenicline. At this time pt is encouraged to evaluate their goals for wanting to quit smoking, and reach out to provider when ready to start this process Associated Problem(s): Hyperlipidemia ([facility]) Continue with statin Check labs yearly and prn dose changes Associated Problem(s): Controlled type 2 diabetes mellitus without complication, without long-term current use of insulin ([facility]) Check blood sugars daily, notify if <70 or >200. Take medications (pills or insulin) as directed. Monitor for s/s of hypoglycemia (sweaty, dizziness, nausea, vomiting, or shakiness). Watch for increase in thirst, urination, or appetite. Inspect feet frequently monitoring for open wounds , and also recommend yearly eye exam. Pt should attempt to remain as physically active as chronic conditions allow, as well as trying to follow a diet low in carbohydrates, and simple sugars. Current meds: statin, constanza, metformin A1c: 6.1% 04/04/24 Associated Problem(s): DDD (degenerative disc disease), lumbar Continue with pain mgmt Associated Problem(s): Munoz's esophagus with esophagitis Recommendations: freq small meals, nothing to eat or drink at least 2 hours prior to bed, limit caffeine, alcohol, as well as spicy foods Meds to limit or avoid if possible: NSAIDS Elevate HOB if possible Continue with omeprazole Next scope due 2026 Associated Problem(s): Other thrombotic microangiopathy (CMS/HCC) Has seen hematology for this Will have to see if ok to have ASA for DM Associated Problem(s): COPD with emphysema (CMS/HCC) Current meds: trelegy Will order rescue inhaler prn documented in this encounter [facility] 01-14-2024 Note Cardiovascular Medic [facility] SUBJECTIVE HPI Stephan López is a 63 [...] without congestive heart (more content not included)... [facility] 12-06-2023 History of Present illness Narrative Pt is still going to the pain clinic Pt had an epidural coddle Pt needs a refill on her omeprazole, [...] After use, clean tip and replace cap. Qhwesyusgsk-Syqqitxeu-Ffezan (Trelegy Ellipta) 100-62.5-25 MCG/ACT aerosol powder 1 [...] Munoz's esophagus with esophagitis 03/16/2023 Centrilobular emphysema ([facility]) 01/25/2023 COPD with emphysema ([facility]) 04/26/2023 COPD with exacerbation ([facility]) 04/07/2023 DDD (degenerative disc disease), lumbar Family history of coronary arteriosclerosis 04/26/2023 Hyperlipidemia ([facility]) 03/16/2023 Idiopathic thrombotic thrombocytopenic purpura ([facility]) 04/26/2023 Other chronic pain 02/08/2023 Other insomnia [...] 4/5 and 5/1 (right) PILONIDAL CYST DRAINAGE 1980 TONSILLECTOMY and Adenoidectomy family history includes Cancer [...] nursing note reviewed. Exam conducted with a superintendent transportation present. Constitutional: General: She is not in [...] Relevant Orders Flu vaccine, MDCK, quadrivalent, PF ([id number]) (Flucelvax single dose syringe) Other Visit Diagnoses Screening for cervical cancer documented in this encounter [facility] 01-19-2023 Note Patient here for [...] All other systems reviewed and are negative. [facility] 01-19-2023 Note Cardiovascular Medic [facility] SUBJECTIVE Chief Complaint Patient presents with Follow-up Hypertension Stephan López is a 62 y.o. female here for follow-up. HPI PMHx: HTN, pericardial effusion, HLD She denies any cardiac concerns today. She has back problems. She is 5 months s/p surgery and she is still recovering. She is following with pain management at [facility]. She is not currently checking her [...] needed. Dante Hand NP [facility] Cardiovascular Medicine [facility] Evaluation note Diagnosis COPD with exacerbation [...] insulin (CMS/HCC)- Primary documented in this encounter [facility] [...] (Eustachian tube dysfunction), left Centrilobular emphysema (CMS/HCC) Degeneration of intervertebral disc of lumbar 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 documented in this encounter [facility] HealthcareEvaluation note* Diagnosis Controlled type 2 diabetes [...] long-term current use of insulin (CMS/HCC)- Primary Other thrombotic microangiopathy (CMS/HCC) Centrilobular emphysema (CMS/HCC) Munoz's esophagus with esophagitis Munoz's esophagus Degeneration of intervertebral disc of lumbar 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 Mixed hyperlipidemia (CMS/HCC) Mixed hyperlipidemia Screening for lung cancer Cigarette nicotine dependence without complication documented in this encounter [facility] Summary Purpose Family History No Family History Records FoundNo Family History Records FoundNo Family History Records FoundNo Family History Records Found Advance Directives No Advanced Directives Records FoundNo Advanced Directives Records FoundNo Advanced Directives Records FoundNo Advanced Directives Records Found Additional Source Comments INFORMATION SOURCE (unrecogn ized section and content) DATE CREATED AUTHOR 06/21/2022 [facility] DATE CREATED AUTHOR AUTHOR'S ORGANIZ ATION 01/17/2024 [facility] DATE CREATED AUTHOR AUTHOR'S ORGANIZ ATION 03/18/2024 [facility] DATE CREATED AUTHOR AUTHOR'S ORGANIZ ATION 04/06/2024 [facility] Specialists EPIC Care Teams (unrecognized sec tion and content) Supervisor Central Supply Relationship Specialty Start Date End Date Jim Deleon MD [address] [place] [address] PCP - General Family Medicine 09/18/22 Gayla Martinez NP [address] [place] [address] Referring Physician Nurse Practitioner 09/18/22 Supervisor [employer] Relationship Specialty Start Date End Date Jim Deleon MD [address] [place] [address] PCP - General Family Medicine 09/18/22 Gayla Martinez NP [address] [place] [address] Referring Physician Nurse Practitioner 09/18/22 Supervisor [employer] Supply Relationship Specialty Start Date End Date Jim Deleon MD [address] [place] [address] PCP - General Family Medicine 04/26/23 Gayla Martinez NP [address] [place] [address] Referring Physician Nurse Practitioner 09/18/22 Gayla Martinez NP [address] [place] [address] Nurse Practitioner Family Medicine 04/26/23 Supervisor Central Supply Relationship Specialty Start Date End Date Jim Deleon MD [address] [place] [address] PCP - General Family Medicine 04/26/23 Gayla Martinez NP [address] [place] [address] Referring Physician Nurse Practitioner 09/18/22 Gayla Martinez NP [address] [place] [address] Nurse Practitioner Family Medicine 04/26/23 Supervisor Central Supply Relationship Specialty Start Date End Date Jim Deleon MD [address] [place] [address] PCP - General Family Medicine 04/26/23 Gayla Martinez NP [address] [place] [address] Referring Physician Nurse Practitioner 09/18/22 Gayla Martinez NP [address] [place] [address] Nurse Practitioner Family Medicine 04/26/23 Supervisor Central Supply Relationship Specialty Start Date End Date Jim Deleon MD [address] [place] [address] PCP - General Family Medicine 04/26/23 Gayla Martinez NP [address] [place] [address] Referring Physician Nurse Practitioner 09/18/22 Gayla Martinez NP [address] [place] [address] Nurse Practitioner Family Medicine 04/26/23 Supervisor Central Supply Relationship Specialty Start Date End Date Jim Deleon MD [address] [place] [address] PCP - General Family Medicine 04/26/23 Gayla Martinez NP [address] [place] [address] Referring Physician Nurse Practitioner 09/18/22 Gayla Martinez NP [address] [place] [address] Nurse Practitioner Family Medicine 04/26/23 Supervisor Central Supply Relationship Specialty Start Date End Date Jim Deleon MD [address] [place] [address] PCP - General Family Medicine 04/26/23 Gayla Martinez NP [address] [place] [address] Referring Physician Nurse Practitioner 09/18/22 Gayla Martinez NP [address] [place] [address] Nurse Practitioner Family Medicine 04/26/23 Supervisor Central Supply Relationship Specialty Start Date End Date Jim Deleon MD [address] [place] [address] PCP - General Family Medicine 04/26/23 Gayla Martinez NP [address] [place] [address] Referring Physician Nurse Practitioner 09/18/22 Gayla Martinez NP [address] [place] [address] Nurse Practitioner Family Medicine 04/26/23 Supervisor Central Supply Relationship Specialty Start Date End Date Jim Deleon MD [address] [place] [address] PCP - General Family Medicine 04/26/23 Gayla Martinez NP [address] [place] [address] Referring Physician Nurse Practitioner 09/18/22 Gayla Martinez NP [address] [place] [address] Nurse Practitioner Family Medicine 04/26/23 Supervisor Central Supply Relationship Specialty Start Date End Date Jim Deleon MD [address] [place] [phone] PCP - General Family Medicine 04/26/23 Gayla Martinez NP [address] [place] [address] Referring Physician Nurse Practitioner 09/18/22 Gayla Martinez NP [address] [place] [phone] Nurse Practitioner Family Medicine 04/26/23 Supervisor Central Supply Relationship Specialty Start Date End Date Jim Deleon MD [address] [place] [phone] PCP - General Family Medicine 04/26/23 Gayla Martinez NP [address] [place] [phone] Referring Physician Nurse Practitioner 09/18/22 Gayla Martinez NP [address] [place] [phone] Nurse Practitioner Family Medicine 04/26/23 Reason for [...] BE BASED ON THE PRIMARY CLINICAL RECORDS. [facility] [employer] [facility]. provides no warranty or guarantee of the accuracy or completeness of information in this document.
== END 2024-04-12 11:07 | disposition home or self-care (01) ==
LOC: RAD 11:08
PROVIDERS: PCP Nurse Practitioner; Visit Provider Physician Assistant
DX: M43.8X9 Other specified deforming dorsopathies, site unspecified (principal); M43.26 Fusion of spine, lumbar region
CPT/HCPCS: 72082

== ENCOUNTER 2024-04-20 14:25 | Outpatient (OUT) | payer OTHER, SELFPAY ==
--- NOTE | 2024-04-20 14:31 | CT_ITS ---
The [address] [address] Patient Name: SHELLEY VAUGHN MRN: [id number] date: 1960 Sex: F Assigned Patient Location: CT Current Patient Location: CT Accession/Order Number: [id number] Exam Date: 04/20/2024 15:34 Report Date: 04/20/2024 15:39 At the request of: CLAYTON WELDON NP Procedure: CT lung screening low-dose CT CHEST WITHOUT CONTRAST, LOW DOSE SCREENING: CLINICAL DATA: A 64-year old current smoker, smoking for 20+ pack-years. COMPARISON: None TECHNIQUE: Noncontrast axial CT scan images of the chest were obtained under the low dose screening CT protocol. Coronal and sagittal reconstructed images were also submitted. FINDINGS: Mediastinum : Suboptimal evaluation due to low-dose technique. Thoracic aorta appears normal in caliber. Pulmonary trunk appears nondilated. No pericardial effusion. No lymphadenopathy. The esophagus is grossly unremarkable. Lungs: No focal consolidation, pneumothorax or pleural effusion. Trachea and distal airways appear patent. Diffuse bronchial wall thickening. Mild lung scarring. No suspicious noncalcified pulmonary nodule or mass. Upper abdomen: No acute findings. Bony thorax and chest wall: Soft tissues surrounding the chest wall demonstrate no acute findings. Osseous structures demonstrate degenerative change. CT/CT lung screening low-dose IMPRESSION: NO SUSPICIOUS PULMONARY NODULE. LUNG - RADS Version 1.0 Assessment: Category 1, Negative (No nodules and definitely benign nodules). Management: Continue annual lung screening with LDCT in 12 months. Impression dictated by: Ronen Montgomery Jr., D.O.04/20/2024 3:39 PM Dictation Location: [place] [address] Electronically authenticated by: [id number] Y Date: 04/20/2024 15:39
--- NOTE | 2024-04-20 14:31 | MM_ITS ---
Patient Name: SHELLEY VAUGHN MR#: [id number] : 1960 Exam Date: 04/20/2024 Ordering Doctor: GAURAV Martinez CNP RADIOLOGY REPORT PROCEDURE: MM TOMOSYNTHESIS SCREENING BI COMPARISON: MM TOMOSYNTHESIS SCREENING BI, 12/03/2022. INDICATIONS: Screening Calculator Name NCI Breast Cancer Risk Assessment Tool 5 Year Breast Cancer Risk 1.80% Lifetime Breast Cancer Risk 7.20% Personal Breast Cancer No Personal Ovarian Cancer No Treatments None Family Cancers None LOCATION: [facility] BREAST COMPOSITION: There are scattered areas of fibroglandular density. FINDINGS: DIAGNOSTIC CATEGORY 1--NEGATIVE. RIGHT BREAST: No significant suspicious finding. LEFT BREAST: No significant suspicious finding. RECOMMENDATIONS: ROUTINE MAMMOGRAM AND CLINICAL EVALUATION IN 12 MONTHS. PLEASE NOTE: A NORMAL MAMMOGRAM DOES NOT EXCLUDE THE POSSIBILITY OF BREAST CANCER. A CLINICALLY SUSPICIOUS PALPABLE LUMP SHOULD BE BIOPSIED. Dictated by: Ronen Montgomery DO on 04/20/2024 at 15:51 Approved by: Ronen Mnotgomery DO on 04/20/2024 at 15:55
== END 2024-04-20 14:26 | disposition home or self-care (01) ==
LOC: CT 14:25
PROVIDERS: PCP Nurse Practitioner; Visit Provider Nurse Practitioner
DX: Z12.31 Encounter for screening mammogram for malignant neoplasm of breast (principal); Z12.2 Encounter for screening for malignant neoplasm of respiratory organs; F17.210 Nicotine dependence, cigarettes, uncomplicated
CPT/HCPCS: 71271; 77063; 77067

== ENCOUNTER 2024-06-14 11:02 | Outpatient (OUT) | payer OTHER, SELFPAY ==
--- NOTE | 2024-06-14 11:36 | P.CN_ITS ---
Consult Note: HPI Data of Consult Patient: known to practice within the last 3 years Requesting Physician: Gwendolyn Salamanca NP Primary Care Provider: Gayla Martinez NP Consult Narrative Reason for consult: f/u Narrative: Stephan muniz pleasant 64 year old female presents for evaluation and management of chronic back pain. Today pain 6/10 in right low back and right hip, describes as a sharp burning pain. Patient has a hx of L3,4,5 fusion. Patient has found mild benefit to current medication regimen, no side effects. Patient continues to have moderate to severe pain that is severely impacting functional ability, DIONNA 40%. Patient has completed aquatherapy without improvement. failed cluneal nerve RFA, SIJ injections and prior ESIs. is not interested in spinal cord stim trial. cc:: CC: Gwendolyn Salamanca NP Review of Systems ROS Status of ROS 10 or more systems reviewed and unremark able except as noted in history and below Musculoskeletal Reports: back pain PFSH PFSH Medical History Low back pain ?M54.50 - Low back pain, unspecified (ICD-10) Osteoarthritis ?M19.90 - Unspecified osteoarthritis, unspecified site (ICD-10) Diabetes ?E11.9 - Type 2 diabetes mellitus without complications (ICD-10) COPD (chronic obstructive pulmonary disease) ?J44.9 - Chronic obstructive pulmonary disease, unspecified (ICD-10) Smoker ?F17.200 - Nicotine dependence, unspecified, uncomplicated (ICD-10) Hypertension ?I10 - Essential (primary) hypertension (ICD-10) Surgical History S/P surgical removal of pilonidal cyst ?Z98.890 - Other specified postprocedural states (ICD-10) H/O lumbosacral spine surgery ?Z98.890 - Other specified postprocedural states (ICD-10) Meds Home Medications and Allergies Home Medications ?Medication ?Instructions ?Recorded ?Confirmed ?Type amitriptyline 10 mg tablet 25 mg PO DAILY 11/23/22 11/22/23 History atorvastatin 20 mg tablet 20 mg PO DAILY 11/23/22 11/22/23 History ferrous sulfate 325 mg (65 mg 325 mg PO DAILY 11/23/22 11/22/23 History iron) tablet (FeroSul) fluticasone fur. 100 mcg-umeclid 1 inh inhalation DAILY 11/23/22 11/22/23 History 62.5 mcg-vilant 25 mcg inhalat.powder (Trelegy Ellipta) lisinopril 2.5 mg tablet 2.5 mg PO DAILY 11/23/22 11/22/23 History metformin 500 mg tablet 500 mg PO BID 11/23/22 11/22/23 History meloxicam 15 mg tablet 15 mg PO DAILY 04/15/23 11/22/23 History naloxone 4 mg/actuation nasal 4 mg intranasal Q3M PRN opioid 05/19/23 11/22/23 Rx spray (Narcan) overdose #2 ea fluticasone propionate 50 intranasal 08/30/23 History mcg/actuation nasal spray,suspension loratadine 10 mg tablet 10 mg PO DAILY 08/30/23 11/22/23 History tizanidine 4 mg capsule 4 mg PO QDAY PRN muscle spasticity 10/04/23 11/22/23 Rx #30 caps tramadol 50 mg tablet 50 mg PO DAILY PRN pain #30 tabs 03/15/24 Rx tramadol 50 mg tablet 50 mg PO DAILY PRN pain #30 tabs 04/24/24 Rx tramadol 50 mg tablet 50 mg PO DAILY PRN pain #30 tabs 06/02/24 Rx Allergies Allergy/AdvReac Type Severity Reaction Status Date / Time No Known Drug Allergies Allergy Verified 11/22/23 08:12 Exam Constitutional Documenting provider has reviewed patient's vital signs: yes Common normals: no apparent distress, oriented x3, healthy appearing, alert and well nourished General appearance: cooperative [facility] Common normals: normocephalic, hearing grossly normal bilaterally and moist oral mucous membranes Head and scalp: normocephalic Eye Common normals: PERRL Pupil: PERRL Neck & C-Spine Common normals: full ROM General: normal visual inspection Chest Common normals: inspection of chest normal Respiratory Common normals: normal respiratory effort, no retractions and no use of accessory muscles Back & Pelvis Lumbar spine/lower back: ROM limited, pain with ROM, lumbar spinal tenderness and straight leg raise negative bilaterally Sacroiliac joints: SI joints normal Other: facet loading bilateral strength 5/5 in BLE Extremity Common normals: normal to inspection and full ROM Neuro Common normals: oriented x3, CN's II-XII intact bilaterally, moves all extremities, no focal motor deficits, no sensory deficits noted and deep tendon reflexes 2+ bilaterally Sensorium/orientation: alert Gait (neuro): antalgic and assistive device used cane Motor exam: strength 5/5 throughout and no movement abnormalities noted Psych Common normals: mental status grossly normal, thought process normal, cooperative, affect normal, speech normal and activity/motor behavior normal Speech: normal speech Thought process: normal thought process Results Additional Findings Additional findings: If on a controlled substance or opioids, I have checked an OARRS report on this patient and there are no aberrancies noted in the prescribing history.??If on a controlled substance or opioid a drug screen was completed and reviewed within the last year, and if there has not been a drug screen completed we ordered one today to monitor higher risk, state monitored pain medication use. As part of providing excellent, safe, comprehensive care, the following was completed at our patient's visit: 1. A medication reconciliation and review to ensure accurate knowledge of current/active medications, including asking our patients to inform us about any idde-mwy-egpreln medications or herbal remedies/nutritional supp lements/alternative remedies. 2. A review to specifically ensure our patients have had annual screening for screening for depression, screening for tobacco use, and screening for unhealthy alcohol use. For concerning screenings had a discussion with the patient, provided patient education, and recommended follow-up with primary care provider when appropriate. If patient noted with a risk of falling, they received education on strength, gait, and balance training to prevent future risk of falling. Portions of this note may have been carried over from the previous visit and updated as appropriate. Please note this office utilizes paper charting in addition to the electronic medical record. A list of current medications, vitals, and PMH is available there as the clinical staff outside of myself do not have access to [employer] charting during the clinic day operations. As part of providing quality comprehensive care the current medications, vitals, and PMH were reviewed in the paper chart. Assessment and Plan Assessment and Plan (1) Chronic right-sided low back pain without sciatica: (2) Failed back syndrome: (3) Sacroiliitis: (4) Lumbar radiculopathy: (5) Muscle spasm: (6) Chronic prescription opiate use: Assessment and Plan: I feel these medications are improving the patient's quality of life and allow them to tolerate activities of daily living as well as participate in recreational activity.? The patient does not report intolerable side effects. The patient is NOT opioid naive and non-pharmacologic and non-opioid treatment has failed to significantly relieve the patient's pain and improve functionality. The patient has a diagnosis that is related to a somatic or visceral pain etiology. ? ?? I reviewed with the patient the potential risks and side effects with the use of? opioid medications including but not limited to respiratory depression,? sedation, and even . Within the last 12 months I have verified the patient has access to naloxone should? these effects occur. The patient was advised to let? their family know they had Naloxone in case they would need to administer? the medication. I advised the patient to avoid the use of any other? sedation substances including alcohol, THC, and benzodiazepines while? taking opioid medications due to the risk of compounding side effects and? detrimental outcomes. within the last 12 months I have reviewed the REGIONAL DIRECTOR OF ADMISSIONS, pain treatment agreement and urine drug screen.? ?? A drug screen was completed within the last year, and no aberrancies were noted regarding their use of controlled substances. The patient understands they are subject to the terms and conditions of the pain contract that they have signed. ? ?? I have checked an OARRS report on this patient today and there are no aberrancies noted in the prescribing history.? (7) Lumbar stenosis with neurogenic claudication: (8) Lumbar spondylosis: Plan increase tizanidine 4mg 1-2 tabs BID PRN pain/spasms continue mobic 15mg daily, denies side effects. risks vs benefits reviewed continue tramadol 50mg BID PRN moderate to severe pain continue HEP as tolerated continue PRN bracing declining spinal cord stim trial at this time naloxone previously discussed and prescribed f/u 3 months, sooner if needed
== END 2024-06-14 11:03 | disposition home or self-care (01) ==
LOC: PM 11:03
PROVIDERS: PCP Nurse Practitioner; Visit Provider Nurse Practitioner
DX: M54.50 Low back pain, unspecified (principal); M96.1 Postlaminectomy syndrome, not elsewhere classified; M46.1 Sacroiliitis, not elsewhere classified; M54.16 Radiculopathy, lumbar region; M62.838 Other muscle spasm; Z79.891 Long term (current) use of opiate analgesic; M48.062 Spinal stenosis, lumbar region with neurogenic claudication; M47.816 Spondylosis without myelopathy or radiculopathy, lumbar region
CPT/HCPCS: G0463

== ENCOUNTER 2024-11-02 10:28 | Outpatient (OUT) | payer OTHER, SELFPAY ==
--- OUTSIDE RECORDS SUMMARY | 2024-11-02 10:30 | XMS_ITS | Clinical Summary ---
Author Organization [facility] Address [address] [place] [address] Care Team Providers Care Automotive Instructor Name Role Phone Gayla Martinez MD Primary Care Provider [phone] Allergies Active Allergy Reactions Criticality Noted Date Comments Pregabalin Hallucinations 01/19/2023 Medications atorvastatin (Lipitor) 20 mg tablet Take 20 mg by mouth at bedtime. Active metFORMIN (Glucophage) 500 mg tablet Take 500 mg by mouth with breakfast. Active omeprazole (PriLOSEC) [address] capsule Take 40 mg by mouth before breakfast. Do not crush or chew. Active Trelegy Ellipta 100-62.5-25 mcg blister with device inhale 1 puff by mouth and INTO THE LUNGS once daily Rinse mouth after use 12/30/2021 Active tiZANidine (Zanaflex) 4 mg tablet Take 4 mg by mouth if needed each day. 03/25/2021 Active amitriptyline (Elavil) 25 mg tablet 01/15/2023 Active lisinopril 5 mg tabletIndications :Benign essential HTN Take 1 tablet (5 mg) by mouth in the morning. 90 tablet 3 01/19/2023 Active meloxicam (Mobic) 15 mg tablet Take 15 mg by mouth in the morning. 12/28/2023 Active traMADol (Ultram) 50 mg tablet Take 50 mg by mouth in the morning. Active lisinopril 10 mg tabletIndications :Benign hypertensive heart disease without congestive heart failure Take 1 tablet (10 mg) by mouth once daily as directed. 90 tablet 3 01/14/2024 01/14/20 25 Active Active Problems Problem Noted Date Diagnosed Date Encounter for screening mamm ogram for malignant neoplasm of breast 12/06/2023 Needs flu shot 12/06/2023 Chronic constipation 07/27/2023 ETD (Eustachian tube dysfunction), left 07/27/19 Family history of coronary arteriosclerosis 05/2023 Idiopathic thrombotic thrombocytopenic purpura 0 04/26/2023 Unintentional weight loss of more than 10 pounds in 90 days 04/26/2023 Munoz's esophagus with esophagitis 03/16/2023 Overview (01/14/2024): Fu scope in 2026 as well as colonoscopy Hyperlipidemia 03/16/2023 Other chronic pain 02/08/2023 Other insomnia 02/08/2023 Centrilobular emphysema 01/25/2023 DDD (degenerative disc disease), lumbar 01/26/20 Tobacco dependence syndrome 01/22/2023 Diabetes 1.5, managed as type 2 06/10/2022 Assessment & Plan (06/10/2022 2:15 PM EDT): F/U with PCP Pericardial effusion 06/10/2022 Assessment & Plan (07/03/2022 9:40 AM EDT): No concerning symptoms Assessment & Plan (06/10/2022 2:13 PM EDT): Recent echo with noted trivial effusion. No recent illness or any concerning symptoms Benign essential HTN 06/10/2022 Assessment & Plan (07/03/2022 9:39 AM EDT): Hypertension is well controlled 120/84 Reviewed b/p log and overall her b/p is controlled with some outliers of high and low b/p. Renal function was normal s/p starting lisinopril Assessment & Plan (06/10/2022 2:15 PM EDT): Hypertension is 145/99 uncontrolled Will start lisinopril 2.5 mg daily BMP in 1 week Start monitoring b/p at home and record on a log, RTC 1 month D/W pt about side effects of 1st dose low b/p and dry persistent cough Spinal stenosis of lumbar region 04/30/2021 Overview (06/10/2022): Added automatically from request for surgery [id number] Disorder of sacrum 04/01/2021 Lumbar neuritis 04/01/2021 Lumbar spondylosis 04/01/2021 Controlled type 2 diabetes m ellitus without complication, without long-term current use of insulin 09/11/2011 Family History Medical History Relation Name Comments Heart attack Father cabg Father cerbral embolism Father pacemaker Maternal Grandmother pacemaker Mother Relation Name Status Comments Father Maternal Grandmother Mother Social History Tobacco Use Types Packs/Day Years Used Date Smoking Tobacco: Every Day Cigarettes Smokeless Tobacco: Never Tobacco Cessation:Ready to Q uit: Not Asked; Counseling Given: Not Answered Alcohol Use Standard Drinks/Week Comments Not Currently 0 (1 standard drink = 0.6 oz pur e alcohol) [place] Safety & Environment Answer Date Rec orded Fear of Current or Ex-Partner Not on file Emotionally Abused Not on file 04/15/2023 Physically Abused Not on file 04/15/2023 Sexually Abused Not on file 04/15/2023 Physically or Sexually Abused Not on file Comments Unknown Sex and Gender Information Value Date Recorded Sex Assigned at Female 01/07/2023 1:34 AM EST Legal Sex Female 12:44 AM EDT Gender Identity Female 01/07/2023 1:34 AM EST Sexual Orientation Heterosexual or Straight 12/23 1:34 AM EST Last Filed Vital Signs Vital Sign Reading Time Taken Comments Blood Pressure 134/88 01/14/2024 9:32 AM EST Pulse 75 01/14/2024 9:32 AM EST Temperature - - Respiratory Rate - - Oxygen Saturation 98% 01/14/2024 9:32 AM EST Inhaled Oxygen Concentration - - Weight 60.8 kg (134 lb) 01/14/2024 9:32 AM EST Height 167.6 cm (5' 6 ) 01/14/2024 9:32 AM EST Body Mass Index 21.63 01/14/2024 9:32 AM EST Plan of Treatment Health Maintenance Due Date Last Done Comments CT Colonography 1960 Diabetes: Hemoglobin A1C 1960 FIT-DNA 1960 FIT 1960 FOBT 1960 Medicare Initial Physical (IPPE) 1960 Sigmoidoscopy 1960 Diabetes: Retinopathy Screening 02/03/1970 Depression Screening 1972 Pap Smear 02/03/1981 Adult Tetanus 02/03/1982 Cervical Cancer Screening 02/03/1990 HPV/Cotest 02/03/1990 Mammogram 2000 Colonoscopy 04/20/2023 04/20/2013 Colorectal Cancer Screening 04/20/2023 Diabetes: Urine Protein Screening 05/30/2023 05/29/2022 COVID-19 Vaccine ( season) 2024 12/30/2021, 06/21/2020, 05/24/2020 Influenza Vaccine (#1) 2024 , 12/06/2023, 01/06/2022, Additional history exists Pneumococcal Vaccine: Pediatrics (0 to 5 Years) and At-Risk Patients (6 to 64 Years) Completed 01/06/2022, 01/22/2012 Zoster Vaccines Completed 07/30/2023, 08/12/2022 HIB Vaccines Aged Out No longer eligi ble based on patient's age to complete this topic HPV Vaccines Aged Out No longer eligi ble based on patient's age to complete this topic IPV Vaccines Aged Out No longer eligi ble based on patient's age to complete this topic Meningococcal B Vaccine Aged Out No l onger eligible based on patient's age to complete this topic Meningococcal Vaccine Aged Out No melvina omar eligible based on patient's age to complete this topic Rotavirus Vaccines Aged Out No longer eligible based on patient's age to complete this topic Insurance [facility] MEDICAID Care Teams Automotive Instructor Relationship Specialty Start Date End Date Gayla Martinez MD [address] [place] [address] PCP - General 10/29/21
--- OUTSIDE RECORDS SUMMARY | 2024-11-02 10:30 | XMS_ITS | Patient Health Record ---
Author Organization [facility] [place] Address [address] [place] [address] Care Team Providers Care Missile Facilities Repairer Name Role Phone Gayla Martinez CNP Primary Care Provider Unavail able Reason For Referral No Information Plan Of Treatment No Information Insurance Providers Payer Name Payer Address Payer Phone Subscriber Number Group Number Insured Name Patient Relationship to Insured Coverage Start Date Coverage End Date [facility] MEDICAID [address] [place], [place] [id number] Stephan López Self - patient is the insured 3
--- OUTSIDE RECORDS SUMMARY | 2024-11-02 10:30 | XMS_ITS | Clinical Summary ---
Author Organization [employer] tem Address [facility] [id number] [address] [place] [address] Care Team Providers Care Heel Seat Trimmer Name Role Phone Michelle Gayla Calhoun APRN-COMMUNITY RELATIONS REPRESENTATIVE Primary Care Provider Allergies No known active allergies Medications metFORMIN (GLUCOPHAGE) 500 mg tablet Take 1 tablet (500 mg total) by mouth in the morning. 2 Active simvastatin (ZOCOR) 10 mg tablet Take 1 tablet (10 mg total) by mouth once daily. Active TRUE METRIX GLUCOSE TEST STRIP strip 1 strip by other route daily. 2 Active omeprazole (PriLOSEC) 40 mg capsule Take 1 capsule (40 mg total) by mouth in the morning. 30 capsule 1 2 Active Additional Information Patient not taking.Reported on 10/28/2022 atorvastatin (LIPITOR) 20 mg tablet Take 1 tablet (20 mg total) by mouth in the morning. 2 Active TRELEGY ELLIPTA 100-62.5-25 mcg blister with device inhale 1 puff by mouth and INTO THE LUNGS once daily Rinse mouth after use 2 Active magnesium hydroxide (MILK OF MAGNESIA) 400 mg/5 mL suspension Take 30 mL by mouth in the morning. Active lisinopriL (PRINIVIL,ZESTR IL) 2.5 mg tablet Take 1 tablet (2.5 mg total) by mouth in the morning. 3 Active tiZANidine (ZANAFLEX) 4 mg tablet Take 1 tablet (4 mg total) by mouth as needed for muscle spasms. 30 tablet 3 3 Active acetaminophen-c odeine (TYLENOL #3) 300-30 mg per tablet Take 1 tablet by mouth every 8 (eight) hours as needed. 3 Active VITAMIN C 500 mg tablet,chewable CHEW AND SWALLOW 1 TABLET EVERY 8 HOURS 3 Active FeroSuL 325 mg (65 mg iron) tablet Take 1 tablet (325 mg total) by mouth in the morning and 1 tablet (325 mg total) in the evening. Take with meals. 3 Active CENTRUM SILVER WOMEN 8 mg iron-400 mcg-50 mcg tablet take 1 tablet by mouth once daily 3 Active Active Problems Problem Noted Date Diagnosed Date Spinal stenosis of lumbar region 04/30/2021 Overview (04/30/2021): Added automatically from request for surgery [id number] Disorder of sacrum 04/01/2021 Lumbar neuritis 04/01/2021 Lumbar spondylosis 04/01/2021 Family History Medical History Relation Name Comments Diabetes Father Wm Alford Heart disease Father Wm Rocío Depression Mother Breast cancer Neg Hx Relation Name Status Comments Father Wm Alford Mother Alive Social History Tobacco Use Types Packs/Day Years Used Date Smoking Tobacco: Every Day Cigarettes 1 30 Smokeless Tobacco: Never Tobacco Cessation:Ready to Q uit: Not Asked; Counseling Given: Not Answered Alcohol Use Standard Drinks/Week Comments Not Currently 0 (1 standard drink = 0.6 oz pur e alcohol) Childcare Answer Date Recorded Childcare Unknown 08/03/2018 Employment Answer Date Recorded Employment Unknown 08/03/2018 Hunger Screening Answer Date Recorded Within the past 12 months we worried whether our food would run out before we got money to buy more. Never True 10/28/2022 Within the past 12 months th e food we bought just didn't last and we didn't have money to get more. Never True 10/28/2022 Comments No Sex and Gender Information Value Date Recorded Sex Assigned at Not on file Legal Sex Female 12:01 PM EDT Gender Identity Not on file Sexual Orientation Not on file Last Filed Vital Signs Vital Sign Reading Time Taken Comments Blood Pressure 121/85 10/28/2022 8:55 AM EDT Pulse 90 10/28/2022 8:55 AM EDT Temperature 36.8 C (98.3 F) 12/26/2021 10:24 AM EDT Respiratory Rate 20 10/28/2022 8:55 AM EDT Oxygen Saturation 100% 07/14/2022 9:28 AM EDT Inhaled Oxygen Concentration - - Weight 63 kg (139 lb) 10/28/2022 8:55 AM EDT Height 167.6 cm (5' 6 ) 10/28/2022 8:55 AM EDT Body Mass Index 22.44 10/28/2022 8:55 AM EDT Plan of Treatment Upcoming Encounters Date Type Department Care Team (Late st Contact Info) Description 11/30/2024 1:00 PM EDT Office Visit [facility] [address] [place] [phone] Elizabeth Dye APRN-COMMUNITY RELATIONS REPRESENTATIVE [address] [place] [address] Health Maintenance Due Date Last Done Comments Depression Screening 1972 DTaP,Tdap and Td Vaccines (1 - Tdap) 02/03/1979 Pap Smear 02/03/1981 Zoster (Shingles) Vaccine (2 of 2) 10/07/20222022 Adult BMI Screening 10/29/2023 10/28/2022 Tobacco Screening 10/29/2023 10/28/2022 COVID-19 Vaccine (4 - 2024-2 6 season) 2024 12/30/2021, 06/21/2020, 05/24/2020 Influenza Vaccine 10/23/2024 01/06/2022, , 03/06/2013 Colonoscopy 09/08/2026 09/08/2021, 08/22, 04/20/2013 Medical Devices Not on file Procedures Procedure Name Priority Date/Time Associated Diagnosis Comments PROVATION COLONOSCOPY Routine 09/08/2021 7:00 AM EDT from Last 3 Months or Most Recently Relevant to Health Maintenance Results * Colonoscopy Report (09/08/2021 7:00 AM EDT) Narrative SYSTEMGENERATED, DOCUMENTATION - 09/08/2021 7:00 AM EDT This order has been auto-finalized for image and report archival in PACs. *For full report details, please reach out to your physician. Effective 07/09/20 this image will be visible to you in MyChart.* us Gonzalo Land DO IMG OR IMG ORDERABLES Final Result from Last 3 Months or Most Recently Relevant to Health Maintenance Insurance [facility] [address] MEDICAID Care Teams Heel Seat Trimmer Relationship Specialty Start Date End Date Gayla Martinez APRN-GAURAV PCP - General Nurse Practitioner 04/01/21
--- OUTSIDE RECORDS SUMMARY | 2024-11-02 10:30 | XMS_ITS | Encounter Summary ---
Author Organization [facility] tem Address [facility] [place] [id number] [address] [place] [address] Care Team Providers Care Hop Weigher Name Role Phone Gayla Martinez APRN-DISTILLER Primary Care Provider Reason for Visit * Reason Comments Med Refill Encounter Details Date Type Department Care Team (Late st Contact Info) Description 01/16/2023 Refill [facility] [address] [place] [id number] Lucho Draper PA [address] [facility] [place], [place] [id number] Social History Tobacco Use Types Packs/Day Years Used Date Smoking Tobacco: Every Day Cigarettes 1 30 Smokeless Tobacco: Never Alcohol Use Standard Drinks/Week Comments Not Currently [...] on file Sexual Orientation Not on file documented as of this encounter Miscellaneous Notes * Telephone Encounter - Birgit Clay RN - 01/16/2023 12:50 PM EST Our clinic does not accept pharmacy refill requests. The patient must contact our office. [phone] documented in this encounter Plan of Treatment Upcoming Encounters Date Type Department Care Team (Late st Contact Info) Description 11/30/2024 1:00 PM EDT Office Visit [facility] [address] [place] [address] Elizabeth Dye APRN-DISTILLER [address] [place] [address] documented as of this encounter Visit Diagnoses Not on filedocumented in this encounter Care Teams Hop Weigher Relationship Specialty Start Date End Date Gayla Martinez, CASING TIER-DISTILLER PCP - General Nurse Practitioner 04/01/21 documented as of this encounter
--- OUTSIDE RECORDS SUMMARY | 2024-11-02 10:30 | XMS_ITS | Encounter Summary ---
Author Organization [facility] Address [address] [place] [address] Care Team Providers Care Pastry Decorator Name Role Phone Gayla Martinez NP Unavailable [phone] Jim Deleon MD Primary Care Provider [phone] Gayla Martinez CHILD DEVELOPMENT INSTRUCTOR Unavailable [phone] Encounter Details Date Type Department Care Team (Late st Contact Info) Description 05/01/2023 Clinisync Result Encounter [facility] External Department Unsolicited Provider, Generic External Data Social History Tobacco Use Types Packs/Day Years Used Date Smoking Tobacco: Every Day Cigarettes 0.5 40 Smokeless Tobacco: Never Alcohol Use Standard Drinks/Week Comments Never 0 (1 standard drink = 0.6 oz pur e alcohol) Social Connection and Isolat ion Panel [NHANES] Answer Date Recorded In a typical week, how many times do you talk on the phone with family, friends, or neighbors? More than three times a week 04/19/2023 How often do you get togethe r with friends or relatives? Twice a week 04/19/2023 How often do you attend chur or mormonism services? More than 4 times per year 04/19/2023 Do you belong to any clubs o r organizations such as sikh groups, unions, fraternal or athletic groups, or school groups? Yes 04/19/2023 How often do you attend meet ings of the clubs or organizations you belong to? More than 4 times per year 04/19/2023 Are you , , di vorced, , never , or living with a partner? 04/19/2023 AUDIT-C Answer Date Recorded Q1: How often do you have a drink containing alcohol? Never 04/19/2023 Q2: How many drinks containi ng alcohol do you have on a typical day when you are drinking? Patient does not drink Q3: How often do you have si x or more drinks on one occasion? Never 04/19/2023 Overall Financial Resource Strain (CARDIA) Answe r Date Recorded How hard is it for you to pa y for the very basics like food, housing, medical care, and heating? Somewhat hard 04/19/2023 PHQ-2 Answer Date Recorded Patient Health Questionnaire-2 Score 0 04/26/2023 [facility] - Occupational Stress Questionnaire Answer Date Recorded Do you feel stress - tense, restless, nervous, or anxious, or unable to sleep at night because your mind is troubled all the time - these days? Patient declined 04/19/2023 Exercise Vital Sign Answer Date Recorde d On average, how many days pe r week do you engage in moderate to strenuous exercise (like a brisk walk)? 0 days Minutes of Exercise per Session Not on file 04/19/2023 Hunger Vital Sign Answer Date Recorded Within the past 12 months, y ou worried that your food would run out before you got the money to buy more. Patient declined Within the past 12 months, t he food you bought just didn't last and you didn't have money to get more. Patient declined PRAPARE - Transportation Answer Date Re corded In the past 12 months, has l ack of transportation kept you from medical appointments or from getting medications? No 03/26 In the past 12 months, has l ack of transportation kept you from meetings, work, or from getting things needed for daily living? No 04/19/2023 Housing Stability Vital Sign Answer Victorino e Recorded In the last 12 months, was t here a time when you were not able to pay the mortgage or rent on time? Yes 04/19/2023 In the last 12 months, how many places have you lived? 1 04/19/2023 In the last 12 months, was t here a time when you did not have a steady place to sleep or slept in a care home (including now)? No 04/19/2023 Comments Unknown Sex and Gender Information Value Date Recorded Sex Assigned at Not on file Legal Sex Female 7:17 PM EDT Gender Identity Not on file Sexual Orientation Not on file documented as of this encounter Plan of Treatment Not on file documented as of this encounter Procedures Procedure Name Priority Date/Time Associated Diagnosis Comments XR LUMBAR SPINE 2 OR 3V 05/01/2023 8:24 AM EST documented in this encounter Results * XR LUMBAR SPINE 2 OR 3V (05/01/2023 8:24 AM EST) Anatomical Region Laterality Modality Radiographic Odalys ging 05/01/2023 8:24 AM EST Narrative 05/01/2023 8:26 [place] [address] XRay Report Signed Patient: STEPHAN LÓPEZ MR#: [id number] : 1960 Acct:[id number] Age/Sex: 63 / F ADM Date: 04/30/23 Loc: [facility] Attending Dr: Erinn HODGES Ordering Physician: Erinn Waggoner Date of Service: 04/30/23 Procedure(s): XR lumbar spine 2-3V Accession Number(s): [id number] cc: Gayla Martinez CHILD DEVELOPMENT INSTRUCTOR; rEinn Waggoner [address] [address] Patient Name: STEPHAN LÓPEZ MRN: [id number] date: 1960 Sex: F Assigned Patient Location: [facility] Current Patient Location: Accession/Order Number: [id number] Exam Date: 04/30/2023 15:00 Report Date: 05/01/2023 08:24 At the request of: ERINN WAGGONER Procedure: XR lumbar spine 2-3V EXAMINATION: XR lumbar spine 2-3V HISTORY: Status post lumbar fusion COMPARISON: XR spine lumbosacral intraoperative images 08/21/2022 FINDINGS: BONES: Mechanical fusion L3-L4-5 via bilateral pedicle screws and rods; no appreciable hardware fracture or loosening. Grade 1 retrolisthesis of L2 on 3 and; no change in alignment during flexion and extension. Grade 1 anterior listhesis of L4 on 5 without appreciable change during flexion and extension. DISC SPACES: Intervertebral disc spacer at L4-L5. Mild/moderate narrowing L2-L3. Moderate-marked narrowing L5-S1. PARASPINOUS: Negative. No paraspinous abnormality is seen. OTHER: Negative. XR/XR lumbar spine 2-3V IMPRESSION: 1. Mechanical fusion of lower lumbar spine without evidence of hardware failure or change in alignment compared to intraoperative images. 2. Grade 1 listhesis of L2 on 3 and L4-L5 without appreciable change between neutral, flexion, extension. Electronically authenticated by: MARC MUNOZ Date: 05/01/2023 08:24 Dictated By: Marc Munoz M.D. Signed By: 05/01/23825 DD/ 3 TD/TT: Dental Laboratory Technology Teacher: Procedure Note Radiology, Radiologist, MD - 05/01/2023 [place] [address] XRay Report Signed Patient: STEPHAN LÓPEZ CMR#: [id number] : 1960Acct:[id number] Age/Sex: 63 / FADM Date: 04/30/23 Loc: RAD Attending Dr: Erinn HODGES Ordering Physician: Erinn Waggoner Date of Service: 04/30/23 Procedure(s): XR lumbar spine 2-3V Accession Number(s): [id number] cc: Gayla Martinez CHILD DEVELOPMENT INSTRUCTOR; Erinn Waggoner The [address] [address] Patient Name: STEPHAN LÓPEZ MRN: [id number] date: 1960 Sex: F Assigned Patient Location: [facility] Current Patient Location: Accession/Order Number: [id number] Exam Date: 04/30/2023 15:00 Report Date: 05/01/2023 08:24 At the request of: ERINN WAGGONER Procedure: XR lumbar spine 2-3V EXAMINATION: XR lumbar spine 2-3V HISTORY: Status post lumbar fusion COMPARISON: XR spine lumbosacral intraoperative images 08/21/2022 FINDINGS: BONES: Mechanical fusion L3-L4-5 via bilateral pedicle screws and rods; no appreciable hardware fracture or loosening. Grade 1 retrolisthesis of L2on 3 and; no change in alignment during flexion and extension. Grade 1 anterior listhesis of L4 on 5 without appreciable change during flexion andextension. DISC SPACES: Intervertebral disc spacer at L4-L5. Mild/moderate narrowing L2-L3. Moderate-marked narrowing L5-S1. PARASPINOUS: Negative. No paraspinous abnormality is seen. OTHER: Negative. XR/XR lumbar spine 2-3V IMPRESSION: 1. Mechanical fusion of lower lumbar spine without evidence of hardware failure or change in alignment compared to intraoperative images. 2. Grade 1 listhesis of L2 on 3 and L4-L5 without appreciable changebetween neutral, flexion, extension. Electronically authenticated by: MARC MUNOZ Date: 05/01/2023 08:24 Dictated By: Marc Munoz M.D. Signed By:05/01/23825 DD/ 3 TD/TT: Dental Laboratory Technology Teacher: Generic External Data Provider IMG XR PROCEDURES Final Result documented in this encounter Visit Diagnoses Not on filedocumented in this encounter Care Teams Pastry Decorator Relationship Specialty Start Date End Date Jim Deleon MD PCP - General Family Medicine 04/26/23 Gayla Martinez NP Referring Physician Nurse Practitioner 09/18/22 Gayla Martinez NP Nurse Practitioner Family Medicine 04/26/23 documented as of this encounter
--- OUTSIDE RECORDS SUMMARY | 2024-11-02 10:30 | XMS_ITS | Encounter Summary ---
Author Organization [facility] Address [address] [place] [address] Care Team Providers Care Financial Adviser Name Role Phone Gayla Martinez [employer] Unavailable [phone] Jim Deleon MD Primary Care Provider [phone] Jim Deleon MD Primary Care Provider [phone] Gayla Martinez [employer] Unavailable [phone] Encounter Details Date Type Department Care Team (Late st Contact Info) Description 04/23/2023 Abstract [facility] [address] [place] [address] Gayla Martinez NP [address] [place] [address] Social History Tobacco Use Types Packs/Day Years [...] week 04/19/2023 How often do you attend [facility] or mandaeism services? More than 4 times per year 04/19/2023 Do you belong to any clubs o r organizations such as congregational groups, unions, fraternal or athletic groups, or [...] Recorded Patient Health Questionnaire-2 Score 0 04/26/2023 [facility] Questionnaire Answer Date Recorded [...] place to sleep or slept in a fpc (including now)? No 04/19/2023 Comments Unknown Sex and Gender Information Value Date Recorded Sex Assigned at Not on file Legal Sex Female 7:17 PM EDT Gender Identity Not on file Sexual Orientation Not on file documented as of this encounter Functional Status * Over the past 2 weeks, how often have you been bothered by any of the following problems? Question Answer Date of Assessment Author Little interest or pleasure in doing things Not at all 04/26/2023 9:15 AM Kalyani Rodríguez MA Feeling down, depressed, or hopeless Not at all 04/26/2023 9:15 AM Kalyani Rodríguez MA Patient Health Questionnaire-2 Score 0 04/26/2023 9:15 AM Vicky Rodríguez MA documented as of this encounter Plan of Treatment Not on file documented as of this encounter Visit Diagnoses Not on filedocumented in this encounter Care Teams Financial Adviser Relationship Specialty Start Date End Date Jim Deleon MD PCP - General Family Medicine 09/18/22 04/25/23 Jim Deleon MD PCP - General Family Medicine 04/26/23 Gayla Martinez NP Referring Physician Nurse Practitioner 09/18/22 Gayla Martinez NP Nurse Practitioner Family Medicine 04/26/23 documented as of this encounter
--- OUTSIDE RECORDS SUMMARY | 2024-11-02 10:30 | XMS_ITS | Encounter Summary ---
Author Organization [facility] Address [address] [place] [address] Care Team Providers Care Secretary Board Of Commissioners Name Role Phone Gayla Martinez ENRICHMENT ASSISTANT Unavailable [phone] Jim Deleon MD Primary Care Provider [phone] Gayla Martinez ENRICHMENT ASSISTANT Unavailable [phone] Encounter Details Date Type Department Care Team (Late st Contact Info) Description 05/03/2023 Orders Only [facility] [address] [place] [address] Gayla Martinez NP [address] [place] [address] Social History Tobacco Use Types Packs/Day Years [...] 04/19/2023 How often do you attend chur ch or amish services? More than 4 times per year 04/19/2023 Do you belong to any clubs o r organizations such as yazdanism groups, unions, fraternal or athletic groups, or [...] Recorded Patient Health Questionnaire-2 Score 0 04/26/2023 [facility] - Occupational Stress [...] place to sleep or slept in a prison (including now)? No 04/19/2023 Comments Unknown Sex [...] Comments XR LUMBAR SPINE 2 OR 3V Routine 04/30/2023 11:17 AM EST documented in this encounter Results * XR LUMBAR SPINE 2 OR 3V (04/30/2023 11:17 AM EST) Anatomical Region Laterality Modality Radiographic Odalys ging us Gayla Martinez NP IMG XR PROCEDURES Final Result documented in this encounter Visit Diagnoses Not on filedocumented in this encounter Care Teams Secretary Board Of Commissioners Relationship Specialty Start Date End Date Jim Deleon MD PCP - General Family Medicine 04/26/23 Gayla Martinez NP Referring Physician Nurse Practitioner 09/18/22 Gayla Martinez NP Nurse Practitioner Family Medicine 04/26/23 documented as of this encounter
--- OUTSIDE RECORDS SUMMARY | 2024-11-02 10:30 | XMS_ITS | Clinical Summary ---
Author Organization [facility] Healthcare Address [address] [place] [address] Care Team Providers Care Green House Manager Name Role Phone Gayla Martinez NP Unavailable [phone] Jim Deleon MD Primary Care Provider [phone] Gayla Martinez DRAWBENCH OPERATOR HELPER Unavailable [phone] Allergies Active Allergy Reactions Criticality Noted Date Comments Pregabalin Hallucinations 01/19/2023 Medications tiZANidine (Zanaflex) 4 MG tablet Take 1 tablet by mouth every 12 (twelve) hours if needed for muscle spasms. Active Lancets misc 1 Device Daily as needed. Active traMADol (Ultram) 50 MG tablet Take 50 mg by mouth every 12 (twelve) hours if needed for severe pain or moderate pain Active fluticasone (Flonase) 50 MCG/ACT nasal sprayIndications:E TD (Eustachian tube dysfunction), left Administer 2 sprays into each nostril Daily Shake gently. Before first use, prime pump. After use, clean tip and replace cap. 16 g 3 12/21/19 24 Active loratadine (Claritin) 10 MG tabletIndications: ETD (Eustachian tube dysfunction), left Take 1 tablet (10 mg) by mouth Daily 90 tablet 1 12/21/19 24 Active Blood Glucose Monitoring Suppl (True Metrix Meter) w/Device kitIndications:Con trolled type 2 diabetes mellitus without complication, without long-term current use of insulin (HCC) 1 each Daily 1 kit 01/27/20 24 025 Active lisinopril 10 MG tablet Take 10 mg by mouth Daily 01/14/20 24 Active ASPIRIN 81 PO Take 81 mg by mouth Daily Active atorvastatin (Lipitor) 20 MG tabletIndications: Mixed hyperlipidemia Take 1 tablet (20 mg) by mouth at bedtime 90 tablet 1 06/27/19 25 Active albuterol HFA 90 mcg/act inhalerIndications :Centrilobular emphysema (HCC) Inhale 2 puffs every 6 (six) hours if needed for shortness of breath or wheezing 18 g 1 08/10/19 25 Active omeprazole (PriLOSEC) [address] capsuleIndications :Munoz's esophagus with esophagitis Take 1 capsule (40 mg) by mouth Daily 90 capsule 1 08/10/19 25 025 Active Fluticasone-Umecli din-Vilant (Trelegy Ellipta) 100-62.5-25 MCG/ACT aerosol powderIndications: Centrilobular emphysema (HCC) Inhale 1 puff Daily Rinse mouth after use 180 each 1 08/10/19 025 Active metFORMIN (Glucophage) 500 MG tabletIndications: Controlled type 2 diabetes mellitus without complication, without long-term current use of insulin (HCC) Take 1 tablet (500 mg) by mouth in the morning. Take with meals. 90 tablet 10/17/19 25 025 Active meloxicam (Mobic) 15 MG tabletIndications: Degeneration of intervertebral disc of lumbar 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 Take 1 tablet (15 mg) by mouth Daily 90 tablet 10/17/19 25 025 Active meloxicam (Mobic) 15 MG tabletIndications: Degeneration of intervertebral disc of lumbar 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 Take 1 tablet (15 mg) by mouth Daily 90 tablet 1 06/27/19 25 025 Discontin ued(Reord er) metFORMIN (Glucophage) 500 MG tabletIndications: Controlled type 2 diabetes mellitus without complication, without long-term current use of insulin (HCC) Take 1 tablet (500 mg) by mouth in the morning. Take with meals. 90 tablet 1 08/10/19 25 025 Discontin ued(Reord er) Active Problems Problem Noted Date Diagnosed Date Immune thrombocytopenic purpura 08/09/2024 Overview (08/09/2024): Previously Coded, ICD10: D69.3: IMMUNE THROMBOCYTOPENIC PURPURA, Assessed by [facility], on 2022-10-20 OAB (overactive bladder) 04/17/2024 Cigarette nicotine dependence without complicati on 04/04/2024 Assessment & Plan (08/09/2024 1:58 PM EDT): The patient has been advised of the risks of continued smoking: stroke, LA, all forms of cancer, lung disease, and . Options for quitting smoking include: cold turkey, hypnosis, acupuncture, nicotine replacement meds (gum, lozenges, and patches), Buproprion, and Varenicline. At this time pt is encouraged to evaluate their goals for wanting to quit smoking, and reach out to provider when ready to start this process Assessment & Plan (04/04/2024 5:15 PM EST): The patient has been advised of the risks of continued smoking: stroke, LA, all forms of cancer, lung disease, and . Options for quitting smoking include: cold turkey, hypnosis, acupuncture, nicotine replacement meds (gum, lozenges, and patches), Buproprion, and Varenicline. At this time pt is encouraged to evaluate their goals for wanting to quit smoking, and reach out to provider when ready to start this process Screening for lung cancer 03/30/2024 Overview (04/20/2024): Low dose CT scan: 04/20/24 negative Assessment & Plan (04/04/2024 5:10 PM EST): Patient meets requirements for low dose CT [...] counseled on the importance of smoking cessation. 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 Assessment & Plan (08/09/2024 1:57 PM EDT): Current meds: trelegy and prn albuterol Looks like utd approval for trelegy Assessment & Plan (04/04/2024 5:09 PM EST): Current meds: trelegy Will order rescue inhaler prn Assessment & Plan (04/26/2023 9:52 AM EST): Continue current meds Recommend quitting smoking Family history of coronary arteriosclerosis 05/2023 COPD with exacerbation 04/07/2023 Hyperlipidemia 03/16/2023 Assessment & Plan (04/04/2024 8:03 AM EST): Continue with statin Check labs yearly and prn dose changes Munoz's esophagus with esophagitis 03/16/2023 Overview (04/26/2023): Fu scope in 2026 as well as colonoscopy Assessment & Plan (08/09/2024 1:57 PM EDT): Recommendations: freq small meals, nothing to eat or drink at least 2 hours prior to bed, limit caffeine, alcohol, as well as spicy foods Meds to limit or avoid if possible: NSAIDS Elevate HOB if possible Continue with omeprazole Next scope due 2026 (explained reason why to take PPI, she will restart) Assessment & Plan (04/04/2024 8:03 AM EST): Recommendations: freq small meals, nothing to eat or drink at least 2 hours prior to bed, limit caffeine, alcohol, as well as spicy foods Meds to limit or avoid if possible: NSAIDS Elevate HOB if possible Continue with omeprazole Next scope due 2026 Assessment & Plan (04/26/2023 9:51 AM EST): Continue PPI Will be due for fu scope in 2026 Other chronic pain 02/08/2023 Other insomnia 02/08/2023 DDD (degenerative disc disease), lumbar 01/26/20 23 Assessment & Plan (04/04/2024 8:03 AM EST): Continue with pain mgmt Assessment & Plan (07/27/2023 12:54 PM EDT): Continue with pain mgmt Assessment & Plan (01/25/2023 9:54 AM EST): Continue with pain mgmt for evaluation of this And treatment plan with them Controlled type 2 diabetes gayle olson without complication, without long-term current use of insulin 09/11/2011 Assessment & Plan (08/09/2024 1:44 PM EDT): Check blood sugars daily, notify if <70 [...] carbohydrates, and simple sugars. Current meds: statin, hunter, metformin A1c: 5.9% 08/09/24, 6.1% 04/04/24 Assessment & Plan (04/04/2024 4:33 PM EST): Check blood sugars daily, notify if <70 [...] carbohydrates, and simple sugars. Current meds: statin, hunter, metformin A1c: 6.1% 04/04/24 Assessment & Plan (07/27/2023 12:52 PM EDT): Reviewed labs Check blood sugars daily, notify if <70 [...] diet low in carbohydrates, and simple sugars. Assessment & Plan (04/26/2023 9:18 AM EST): Check blood sugars daily, notify if <70 [...] diet low in carbohydrates, and simple sugars. 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 [address] [place] [address] Gayla Martinez NP Controlled type 2 diabetes mellitus without complication, without long-term current use of insulin (HCC); Degeneration of intervertebral disc of lumbar 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 08/09/2024 1:20 PM EDT Office Visit [facility] [address] [place] [address] Gayla Martinez NP Controlled type 2 diabetes mellitus without complication, without long-term current use of insulin (HCC) (Primary Dx); Centrilobular emphysema (HCC); Munoz's esophagus with esophagitis; Cigarette nicotine dependence without complication 08/09/2024 Bamboo flowsheet [facility] [address] [place] [id number] Gayla Martinez NP from Last 3 Months Immunizations Immunization Administration Dates Next Due Influenza Whole 11/20/2013,03/06/2013 Influenza, injectable, MDCK, preservative free, quadrivalent 12/06/2023,01/06/2022 Pneumococcal Conjugate PCV 20 01/06/2022 Pneumococcal Polysaccharide PPSV23 01/22/2012 Zoster, Recombinant 07/30/2023,08/12/2022 Family History Medical History Relation Name Comments Diabetes Father Heart disease Father Hypertension Father Cancer Maternal Grandmother Heart disease Maternal Grandmother Diabetes Mother Heart disease Mother Mental illness Mother Mental illness Sister Relation Name Status Comments Brother 1 brother Father Maternal Grandmother Mother Alive Sister 1 sister Social History Tobacco Use Types Packs/Day Years Used Date Smoking Tobacco: Every Day Cigarettes 0.5 40 Smokeless Tobacco: Never Tobacco Cessation:Ready to Q uit: No; Counseling Given: Yes Alcohol Use Standard Drinks/Week Comments Never 0 [...] often do you attend chur ch or church services? More than 4 times per year 04/19/2023 Do you belong to any clubs o r organizations such as hindu groups, unions, fraternal or athletic groups, or [...] Recorded Patient Health Questionnaire-2 Score 0 04/26/2023 [facility] [place] of Occupat ional Health - Occupational Stress [...] place to sleep or slept in a alf (including now)? No 04/19/2023 Comments Unknown Sex and Gender Information Value Date Recorded Sex Assigned at Not on file Legal Sex Female 7:17 PM EDT Gender Identity Not on file Sexual Orientation Not on file Last Filed Vital Signs Vital Sign Reading Time Taken Comments Blood Pressure 132/78 08/09/2024 1:30 PM EDT Pulse 74 08/09/2024 1:30 PM EDT Temperature 36.8 C (98.3 F) 08/09/2024 1:30 PM EDT Respiratory Rate 18 08/09/2024 1:30 PM EDT Oxygen Saturation 99% 08/09/2024 1:30 PM EDT Inhaled Oxygen Concentration - - Weight 59.4 kg (131 lb) 08/09/2024 1:30 PM EDT Height 167.6 cm (5' 6 ) 12/06/2023 10:35 AM EDT Body Mass Index 21.14 12/06/2023 10:35 AM EDT Plan of Treatment Health Maintenance Due Date Last Done Comments CT Colonography 1960 FIT-DNA 1960 FIT 1960 FOBT 1960 Lung Cancer Screening Shared Decision Making 1960 Sigmoidoscopy 1960 HPV/Cotest 02/03/1990 Diabetes: Urine Protein Screening 07/25/2024 07/26/2023, 05/29/2022, 05/29/2022 Influenza Vaccine (#1) 2024 4, 01/06/2022, 11/20/2013, Additional history exists Diabetes: Hemoglobin A1C 02/08/2025 025, 04/04/2024, 07/26/2023, Additional history exists Mammogram 04/20/2025 04/20/2024, 02/23 (Patient Refused), 12/03/2022, Additional history exists Diabetes: Retinopathy Screening 07/20/2025 Colonoscopy 09/08/2026 09/08/2021, 04/20/2013 Colorectal Cancer Screening 09/08/2026 Cervical Cancer Screening 12/05/2026 Pap Smear 12/05/2026 12/06/2023 Procedures Procedure Name Priority Date/Time Associated Diagnosis Comments POCT GLYCOSYLATED HEMOGLOBIN (HGB A1C) Routine 08/09/2024 1:45 PM EDT Controlled type 2 diabetes mellitus without complication, without long-term current use of insulin (HCC) MM TOMOSYNTHESIS SCREENING BI 04/20/2024 3:55 PM EST COLONOSCOPY Routine 04/20/2013 12:00 PM EST from Last 3 Months or Most Recently Relevant to Health Maintenance Results * POCT glycosylated hemoglobin (Hb A1C) docked device (08/09/2024 1:45 PM EDT) Hemoglobin A1C 5.9 Blood Venous blood specimen / Unknown 08/09/2024 1:45 PM EDT Gayla Martinez NP POINT OF CARE TEST ENTER/EDIT O RDERABLES Final Result * MM TOMOSYNTHESIS SCREENING BI (04/20/2024 3:55 PM EST) Anatomical Region Laterality Modality Other 04/20/2024 3:55 PM EST Narrative 04/20/2024 3:56 [place] [address] Mammography Report Signed Patient: STEPHAN LÓPEZ MR#: [id number] : 1960 Acct:[id number] Age/Sex: 64 / F ADM Date: 04/20/24 Loc: CT Attending Dr: Gayla Martinez NP Ordering Physician: Gayla Martinez NP Results: Date of Service: 04/20/24 Follow Up: Procedure(s): MM tomosynthesis screening BI Accession Number(s): [id number] cc: Gayla Martinez NP Patient Name: STEPHAN LÓPEZ MR#: [id number] : 1960 Exam Date: 04/20/2024 Ordering Doctor: GAURAV Martinez CNP RADIOLOGY REPORT PROCEDURE: MM TOMOSYNTHESIS SCREENING BI COMPARISON: MM TOMOSYNTHESIS SCREENING BI, 12/03/2022. INDICATIONS: Screening Calculator Name NCI Breast Cancer Risk Assessment Tool 5 Year Breast Cancer Risk 1.80% Lifetime Breast Cancer Risk 7.20% Personal Breast Cancer No Personal Ovarian Cancer No Treatments None Family Cancers None LOCATION: [facility] BREAST COMPOSITION: There are scattered areas of fibroglandular density. FINDINGS: DIAGNOSTIC CATEGORY 1--NEGATIVE. RIGHT BREAST: No significant suspicious finding. LEFT BREAST: No significant suspicious finding. RECOMMENDATIONS: ROUTINE MAMMOGRAM AND CLINICAL EVALUATION IN 12 MONTHS. PLEASE NOTE: A NORMAL MAMMOGRAM DOES NOT EXCLUDE THE POSSIBILITY OF BREAST CANCER. A CLINICALLY SUSPICIOUS PALPABLE LUMP SHOULD BE BIOPSIED. Dictated by: Ronen Montgomery DO on 04/20/2024 at 15:51 Approved by: Ronen Montgomery DO on 04/20/2024 at 15:55 Dictated By: Ronen Montgomery M.D. Signed By: 04/20/24 1556 DD/ 1555 TD/TT: Life Educator: Procedure Note Radiology, Radiologist, - 04/20/2024 [place] [address] Mammography Report Signed Patient: STEPHAN LÓPEZ CMR#: [id number] : 1960Acct:[id number] Age/Sex: 64 / FADM Date: 04/20/24 Loc: CT Attending Dr: Gayla Martinez NP Ordering Physician: Gayla Martinez NPResults: Date of Service: 04/20/24Follow Up: Procedure(s): MM tomosynthesis screening BI Accession Number(s): [id number] cc: Gayla Martinez NP Patient Name: STEPHAN LÓPEZ MR#: [id number] : 1960 Exam Date: 04/20/2024 Ordering Doctor: GAURAV Martinez CARDIAC EXERCISE PHYSIOLOGIST RADIOLOGY REPORT PROCEDURE: MM TOMOSYNTHESIS SCREENING BI COMPARISON: MM TOMOSYNTHESIS SCREENING BI, 12/03/2022. INDICATIONS: Screening Calculator Name NCI Breast Cancer Risk Assessment Tool 5 Year Breast Cancer Risk 1.80% Lifetime Breast Cancer Risk 7.20% Personal Breast Cancer No Personal Ovarian Cancer No Treatments None Family Cancers None LOCATION: [facility] BREAST COMPOSITION: There are scattered areas of fibroglandulardensity. FINDINGS: DIAGNOSTIC CATEGORY 1--NEGATIVE. RIGHT BREAST: No significant suspicious finding. LEFT BREAST: No significant suspicious finding. RECOMMENDATIONS: ROUTINE MAMMOGRAM AND CLINICAL EVALUATION IN 12 MONTHS. PLEASE NOTE: A NORMAL MAMMOGRAM DOES NOT EXCLUDE THE POSSIBILITY OFBREAST CANCER. A CLINICALLY SUSPICIOUS PALPABLE LUMP SHOULD BE BIOPSIED. Dictated by: Ronen Montgomery DO on 04/20/2024 at 15:51 Approved by: Ronen Montgomery DO on 04/20/2024 at 15:55 Dictated By: Ronen Montgomery M.D. Signed By:04/20/24 1556 DD/ 1555 TD/TT: Life Educator: Gayla Martinez NP [facility] Final Result * Colonoscopy (04/20/2013 12:00 PM EST) Anatomical Region Laterality Modality Endoscopy 04/20/2013 12:0 0 PM EST Narrative 04/20/2013 12:00 PM EST PERFORMED AT [facility] LOCATION:[id number] Normal Procedure Note CONVERSION, GENERIC - 07/09/2022 PERFORMED AT [facility] LOCATION:[id number] Normal Taylor Dee MD ENDOSCOPY PROCEDURE ORDERABLES F inal Result from Last 3 Months or Most Recently Relevant to Health Maintenance Insurance [employer] Care Teams Green House Manager Relationship Specialty Start Date End Date Jim Deleon MD PCP - General Family Medicine 04/26/23 Gayla Martinez NP Referring Physician Nurse Practitioner 09/18/22 Gayla Martinez NP Nurse Practitioner Family Medicine 04/26/23
--- NOTE | 2024-11-02 10:53 | PM.CN ---
Consult Note: HPI Data of Consult Patient: known to practice within the last 3 years Consult date: 11/02/24 Requesting Physician: Gwendolyn Salamanca NP Primary Care Provider: Gayla Martinez NP Consult Narrative Reason for consult: f/u Narrative: Stephan muniz pleasant 64 year old female presents for evaluation and management of chronic back pain. Today pain 8/10 in low back and hips. Patient has a hx of L3,4,5 fusion. Patient has found mild benefit to current medication regimen, no side effects. Patient continues to have moderate to severe pain that is severely impacting functional ability, DIONNA 42%. denies fall/injury since last visit. last evaluated 06/16, has been out of tramadol with increased pain. reports shes been out of meloxicam as well. cc:: CC: Gwendolyn Salamanca NP [facility] Medical History Low back pain ?M54.50 - Low back pain, unspecified (ICD-10) Osteoarthritis ?M19.90 - Unspecified osteoarthritis, unspecified site (ICD-10) Diabetes ?E11.9 - Type 2 diabetes mellitus without complications (ICD-10) COPD (chronic obstructive pulmonary disease) ?J44.9 - Chronic obstructive pulmonary disease, unspecified (ICD-10) Smoker ?F17.200 - Nicotine dependence, unspecified, uncomplicated (ICD-10) Hypertension ?I10 - Essential (primary) hypertension (ICD-10) Surgical History S/P surgical removal of pilonidal cyst ?Z98.890 - Other specified postprocedural states (ICD-10) H/O lumbosacral spine surgery ?Z98.890 - Other specified postprocedural states (ICD-10) Meds Home Medications and Allergies Home Medications ?Medication ?Instructions ?Recorded ?Confirmed ?Type amitriptyline 10 mg tablet 25 mg PO DAILY 11/23/22 11/22/23 History atorvastatin 20 mg tablet 20 mg PO DAILY 11/23/22 11/22/23 History ferrous sulfate 325 mg (65 mg 325 mg PO DAILY 11/23/22 11/22/23 History iron) tablet (FeroSul) fluticasone fur. 100 mcg-umeclid 1 inh inhalation DAILY 11/23/22 11/22/23 History 62.5 mcg-vilant 25 mcg inhalat.powder (Trelegy Ellipta) lisinopril 2.5 mg tablet 2.5 mg PO DAILY 11/23/22 11/22/23 History metformin 500 mg tablet 500 mg PO BID 11/23/22 11/22/23 History meloxicam 15 mg tablet 15 mg PO DAILY 04/15/23 11/22/23 History naloxone 4 mg/actuation nasal 4 mg intranasal Q3M PRN opioid 05/19/23 11/22/23 Rx spray (Narcan) overdose #2 ea fluticasone propionate 50 intranasal 08/30/23 History mcg/actuation nasal spray,suspension loratadine 10 mg tablet 10 mg PO DAILY 08/30/23 11/22/23 History tizanidine 4 mg capsule 4 mg PO QDAY PRN muscle spasticity 10/04/23 11/22/23 Rx #30 caps tramadol 50 mg tablet 50 mg PO DAILY PRN pain #30 tabs 03/15/24 Rx tramadol 50 mg tablet 50 mg PO DAILY PRN pain #30 tabs 04/24/24 Rx tramadol 50 mg tablet 50 mg PO DAILY PRN pain #30 tabs 06/02/24 Rx tramadol 50 mg tablet 50 mg PO DAILY PRN pain #30 tabs 07/19/24 Rx tramadol 50 mg tablet 50 mg PO DAILY #30 tabs 08/28/24 Rx Allergies Allergy/AdvReac Type Severity Reaction Status Date / Time No Known Drug Allergies Allergy Verified 11/22/23 08:12 Exam Constitutional Documenting provider has reviewed patient's vital signs: yes Common normals: no apparent distress, oriented x3, healthy appearing, alert and well nourished General appearance: cooperative [facility] Common normals: normocephalic, hearing grossly normal bilaterally and moist oral mucous membranes Head and scalp: normocephalic Eye Common normals: PERRL Pupil: PERRL Neck & C-Spine Common normals: full ROM General: normal visual inspection Chest Common normals: inspection of chest normal Respiratory Common normals: normal respiratory effort, no retractions and no use of accessory muscles Back & Pelvis Lumbar spine/lower back: ROM limited, pain with ROM, lumbar spinal tenderness and straight leg raise negative bilaterally Other: facet loading bilateral strength 5/5 in BLE Extremity Common normals: normal to inspection and full ROM Neuro Common normals: oriented x3, CN's II-XII intact bilaterally, moves all extremities, no focal motor deficits, no sensory deficits noted and deep tendon reflexes 2+ bilaterally Sensorium/orientation: alert Gait (neuro): antalgic and assistive device used cane Motor exam: strength 5/5 throughout and no movement abnormalities noted Psych Common normals: mental status grossly normal, thought process normal, cooperative, affect normal, speech normal and activity/motor behavior normal Speech: normal speech Thought process: normal thought process Assessment and Plan Assessment and Plan (1) Failed back syndrome: (2) Sacroiliitis: (3) Chronic prescription opiate use: Plan refill/continue tramadol 50mg daily prn moderate to severe pain pt reports she recently was evaluated by her NS Dr Tylor HODGES/BUFFER NICKEL but is unsure who, states this was in the last few months. will request consult notes. reports shes not a surgical candidate. pt not interested in scs trial/implant update narcan script monitor for s/s of confusion or memory loss, pt called in as she could not find our office today despite coming here many times. pt reports this to coming in a different entrance than usual. has been out of meloxicam, she reports she set down a meloxicam script in her car then it went missing. she did not contact her pcp or the pharmacy to discuss this. she has been in increased pain without. continue tizanidine 4-8mg bid prn pain/spasms f/u 3 months for medication management, sooner if needed
--- OUTSIDE RECORDS SUMMARY | 2024-11-02 10:54 | XMS_ITS | CCD ---
Author Organization [facility] Care Team Providers Care 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 Name Role Phone ALBA MOHAMAD Attending Unavailable AICHHOLZ, CHECKERER HAND GAYLA Primary Care Unavailable ALGHOTHANI, MOHAMAD Consulting Unavailable ALGHOTHANI, MOHAMAD Admitting Unavailable AICHHOLZ, CHECKERER HAND GAYLA Primary Care Unavailable AICHHOLZ, CHECKERER HAND GAYLA Admitting Unavailable AICHHOLZ, CHECKERER HAND GAYLA Attending Unavailable AICHHOLZ, CHECKERER HAND GAYLA Consulting Unavailable ALGHOTHANI, MOHAMAD Attending Unavailable AICHHOLZ, CHECKERER HAND GAYLA Primary Care Unavailable ALGHOTHANI, MOHAMAD Consulting Unavailable ALGHOTHANI, MOHAMAD Admitting Unavailable ALGHOTHANI, MOHAMAD Attending Unavailable AICHHOLZ, CHECKERER HAND GAYLA Primary Care Unavailable ALGHOTHANI, MOHAMAD Consulting Unavailable ALGHOTHANI, MOHAMAD Admitting Unavailable ALEX, INA Attending Unavailable ALEX, INA Admitting Unavailable ALEX, INA Consulting Unavailable AICHHOLZ, CHECKERER HAND GAYLA Primary Care Unavailable AICHHOLZ, CHECKERER HAND GAYLA Admitting Unavailable AICHHOLZ, CHECKERER HAND GAYLA Attending Unavailable AICHHOLZ, CHECKERER HAND GAYLA Consulting Unavailable AICHHOLZ, CHECKERER HAND GAYLA Primary Care Unavailable AICHHOLZ, CHECKERER HAND GAYLA Admitting Unavailable AICHHOLZ, CHECKERER HAND GAYLA Attending Unavailable AICHHOLZ, CHECKERER HAND GAYLA Consulting Unavailable AICHHOLZ, CHECKERER HAND GAYLA Primary Care Unavailable Aichholz WASH MILL OPERATOR, Gayla Unavailable Jim Deleon MD Primary Care Provider Aicleno WASH MILL OPERATOR, Gayla Unavailable Jim Deleon MD Primary Care Provider Aichdouglas WASH MILL OPERATOR, Gayla Unavailable NE WILLISAMAD Attending Unavailable DANTE HAND Attending Unavailable AICHHOLZ, GAYLA Attending Unavailable AICHHOLZ, GAYLA Attending Unavailable AICHOLGAYLA Arevalo Attending Unavailable Isabela BOWIE, Lara Amos Attending Unavailable Aichholz BRAND ACTIVATION MANAGER-CHECKERER HAND, Gayla Joyce Primary Care Unava ilable Isabela BOWIE, Lara Amos Attending Unavailable Aichholz BRAND ACTIVATION MANAGER-CHECKERER HAND, Gayla Cook Primary Care Unava ilable Edilson PA-C, Dasha Pedro Attending Unavailab le Aichholz BRAND ACTIVATION MANAGER-CHECKERER HAND, Gayla Joyce Primary Care Unava ilable Edilson PA-C, Dasha Pedro Attending Unavailab le Aichholz BRAND ACTIVATION MANAGER-CHECKERER HAND, Gayla Cook Primary Care Unava ilable Edilson PA-C, Dasha Pedro Attending Unavailab le Aichholz BRAND ACTIVATION MANAGER-CHECKERER HAND, Gayla Cook Primary Care Unava ilable Edilson PA-C, Dasha Pedro Attending Unavailab le Edilson PA-C, Dasha Pedro Attending Unavailab le Aichholz BRAND ACTIVATION MANAGER-CHECKERER HAND, Gyala Cook Primary Care Unava ilable Isabela BOWIE, Lara Amos Attending Unavailable Allergies Allergy Classification Reported Allergen(s) Allergy Type Date of Onset Reaction(s) Facility (20 sources) Pregabalin; Translations: [PREGABALIN] Propensity to adverse reactions 3 [facility] (1 source) No Known Medication Allergies; Translations: [No Known Medication Allergies] Propensity to adverse reactions to drug (disorder) [facility] Repository Medications Current Medications Medication Drug Class(es) Dates Sig (Normalized) Sig (Original) [id number] 200 actuat albuterol 0.09 mg/actuat metered dose inhaler (19 sources) beta2-Adrenergic Agonist Start: 04-04-2024 End: 09-08-2024 take 2 puff(s) by inhalation every six hours for wheezing albuterol HFA 90 mcg/act inhaler Indications: Centrilobular emphysema (HCC) Inhale 2 puffs every 6 (six) hours if needed for shortness of breath or wheezing 18 g 1 08/09/2024 Active amitriptyline hydrochloride 25 mg oral tablet [...] by mouth in the morning. 0 Active aspirin 81 mg chewable tablet (20 sources) Platelet Aggregation Inhibitor, Nonsteroidal Anti-inflammatory Drug Start: 04-12-2024 End: 07-11-2024 aspirin 81 MG chewable tablet Indications: Controlled type 2 diabetes mellitus without complication, without long-term current use of insulin Chew 1 tablet (81 mg) Daily 90 tablet 3 04/12/2024 07/11/2024 Active take 81 mg by mouth once daily A SPIRIN 81 PO Take 81 mg by mouth Daily Active atorvastatin 20 mg oral tablet (20 sources) HMG-CoA Reductase Inhibitor Start: 07-27-2023 End: 09-24-2024 take 1 tablet by mouth at bedtime atorvastatin (Lipitor) 20 MG tablet Indications: Mixed hyperlipidemia Take 1 tablet (20 mg) by mouth at bedtime 90 tablet 1 06/26/2024 Active Start: 03-23-2023 End: 06-21-2023 take 1 [...] Monitoring Suppl (True Metrix Meter) w/Device kit (20 sources) Start: 01-27-2024 End: 01-26-2025 Blood Glucose Monitoring Suppl (True Metrix Meter) w/Device kit Indications: Controlled type 2 diabetes mellitus without complication, without long-term current use of insulin (HCC) 1 each Daily 1 kit 01/27/2024 01/26/2025 Active Start: 01-27-2024 End: 01-26-2025 Blood Glucose Monitoring [address] pl (True Metrix Meter) w/Device kit Indications: Controlled type 2 diabetes mellitus without complication, without long-term current use of insulin 1 each Daily 1 kit 01/27/2024 01/26/2025 Active Start: 01-27-2024 End: 01-26-2025 Blood Glucose Monitoring [address] (True Metrix Meter) w/Device kit Indications: Controlled type 2 diabetes mellitus without complication, without long-term current use of insulin ([facility]) 1 each Daily 1 kit 01/27/2024 01/26/2025 Active End: 01-27-2024 [address] (True Metrix Meter) w/Device kit 1 each Daily 01/27/2024 Discontinued (Reorder) brompheniramine maleate 0.4 mg/ml / dextromethorphan hydrobromide 2 mg/ml / pseudoephedrine hydrochloride 6 mg/ml oral solution (2 sources) alpha-Adrenergic Agonist, Uncompetitive N-dotukn-V-aspartate Receptor Antagonist, Sigma-1 Agonist Start: 04-07-2023 End: 04-14-2023 take 10 mL by mouth four times daily as needed for cough ykyssmilesevjqq-prfglppqzekrbuq-MJ (Bromfed DM) 30-2-10 MG/5ML syrup Indications: COPD with exacerbation ([facility]) Take 10 mL by mouth 4 (four) [...] propionate 0.05 mg/actuat metered dose nasal spray (20 sources) Corticosteroid Start: 07-27-2023 End: 01-20-2024 take [...] / vilanterol 0.025 mg/actuat dry powder inhaler (20 sources) Anticholinergic, Corticosteroid, beta2-Adrenergic Agonist Start: 07-08-2023 End: 11-07-2024 take 1 puff(s) by mouth once daily Ziqndrzyzla-Sbshvkdna-Ecisjq (Trelegy Ellipta) 100-62.5-25 MCG/ACT aerosol powder Indications: Centrilobular emphysema (HCC) Inhale 1 puff Daily Rinse mouth after use 180 each 1 08/09/2024 11/07/2024 Active take 1 dose by inhal ation once daily Vharphxhaij-Bkaelprct-Dgkaan (Trelegy El lipta) 100-62.5-25 MCG/ACT aerosol powder Inhale 1 Dose 1 (one) time each day. 0 Active lisinopril 10 mg oral tablet (20 sources) Angiotensin Converting Enzyme Inhibitor Start: 01-14-2024 [...] 03/20/2024 Active loratadine 10 mg oral tablet (20 sources) Start: 07-27-2023 End: 03-20-2024 take 1 tablet by mouth once daily loratadine (Claritin) 10 MG tablet Indications: ETD (Eustachian tube dysfunction), left Take 1 tablet (10 mg) by mouth Daily 90 tablet 1 12/21/2023 Active meloxicam 15 mg oral tablet (20 sources) Nonsteroidal Anti-inflammatory Drug Start: 10-16-2024 End: 01-14-2025 take 1 tablet by mouth once daily meloxicam (Mobic) 15 MG tablet Indications: Degeneration of intervertebral disc of lumbar 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 Take 1 tablet (15 mg) by mouth Daily 90 tablet 10/16/2024 01/14/2025 Active Start: 03-23-2023 End: 09-24-2024 take 1 tablet by mouth once daily meloxicam (Mobic) 15 MG tablet Indications: Degeneration of intervertebral disc of lumbar 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 Take 1 tablet (15 mg) by mouth Daily 90 tablet 1 06/26/2024 09/24/2024 Active metFORMIN hydrochloride 500 mg oral tablet (20 sources) Biguanide Start: 07-27-2023 End: 01-14-2025 take 1 tablet by mouth at mealtime metFORMIN (Glucophage) 500 MG tablet Indications: Controlled type 2 diabetes mellitus without complication, without long-term current use of insulin (HCC) Take 1 tablet (500 mg) by mouth in the morning. Take with meals. 90 tablet 10/16/2024 01/14/2025 Active Start: 01-25-2023 End: 04-25-2023 take 1 [...] omeprazole 40 mg delayed release oral capsule (20 sources) Proton Pump Inhibitor Start: 06-01-2023 End: 11-07-2024 take 1 capsule by mouth once daily omeprazole (PriLOSEC) [address] capsule Indications: Munoz's esophagus with esophagitis Take 1 capsule (40 mg) by mouth Daily 90 capsule 1 08/09/2024 11/07/2024 Active Start: 03-16-2023 End: 04-15-2023 take 1 capsule by mouth in the morning omeprazole (PriLOSEC) [address] capsule Indications: Munoz's esophagus with esophagitis Take 1 capsule (40 mg) by mouth in the morning. 30 capsule 2 03/16/2023 04/15/2023 Active 24 hr oxybutynin chloride 5 mg extended release oral tablet (9 sources) Cholinergic Muscarinic Antagonist Start: 06-26-2024 End: 09-24-2024 take 1 tablet by mouth once daily oxybutynin XL (Ditropan-XL) 5 MG 24 hr tablet Indications: OAB (overactive bladder) Take 1 tablet (5 mg) by mouth Daily Do not crush, chew, or split. 90 tablet 1 06/26/2024 09/24/2024 Active Start: 04-17-2024 End: 05-17-2024 take 1 tablet by mouth once daily oxybutynin XL (Ditropan-XL) 5 MG 24 hr tablet Indications: OAB (overactive bladder) Take 1 tablet (5 mg) by mouth Daily Do not crush, chew, or split. 30 tablet 1 04/17/2024 05/17/2024 Active tiZANidine 4 mg oral tablet (20 sources) Central alpha-2 Adrenergic Agonist take 1 tablet by mouth once tiZANidine (Zanaflex) 4 MG tablet Take 1 tablet by mouth every 12 (twelve) hours if needed for muscle spasms. 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] Onset: 08-09-2024 08-09-2024 Chronic Diabetes mellitus without complication (20 sources) Type 2 diabetes mellitus without complications; Translations: [Type 2 diabetes mellitus without complication] Onset: 09-11-2011 Chronic Disorders of lipid metabolism (20 sources) Hyperlipidemia; Translations: [Hyperlipidemia, unspecified] Onset: 03-16-2023 03-16-2023 Chronic Esophageal disorders (20 sources) Munoz's esophagus with esophagitis; Translations: [Munoz's [...] thrombocytopenic purpura] Onset: 04-26-2023 04-26-2023 Chronic Other diseases of bladder and urethra (14 sources) Overactive bladder; Translations: [Overactive bladder] Onset: 04-17-2024 04-17-2024 Chronic Other nervous system disorders (20 sources) Chronic pain; Translations: [Other chronic pain] Onset: 02-08-2023 02-08-2023 Chronic Pleurisy; pneumothorax; pulmonary collapse (4 sources) Pleural effusion, not elsewhere classified; Translations: [PLEURAL EFFUSION NEC] Onset: 05-08-2022 Episodic Residual codes; unclassified (20 sources) Insomnia; Translations: [Other insomnia] Onset: 02-08-2023 02-08-2023 Chronic Spondylosis; intervertebral disc disorders; other back problems (20 sources) Degeneration of lumbar intervertebral disc; Translations: [Other intervertebral disc degeneration, lumbar region] Onset: 01-25-2023 01-25-2023 Chronic Substance-related disorders (20 sources) Tobacco dependence syndrome; Translations: [Nicotine dependence, unspecified, uncomplicated] Onset: 01-22-2023 01-22-2023 Chronic Unclassified (3 sources) OTH PERICARDIAL EFFUSION NONINFLAMM; Translations: [OTH PERICARDIAL EFFUSION NONINFLAMM] Onset: 01-08-2022 Unclassified (1 source) Other pericardial effusion (noninflammatory); Translations: [Other pericardial effusion (noninflammatory)] Onset: 06-10-2022 Past or Other Problems Problem Classification Problem Date Documented Da te Episodic/Chronic Immunizations and screening for infectious disease (20 sources) Needs influenza immunization; Translations: [Encounter for immunization] Onset: 12-06-2023 12-06-2023 Episodic Influenza (20 sources) Influenza due to Influenza A virus; Translations: [Influenza due to other identified influenza virus with other respiratory manifestations] Onset: 04-09-2023 Resolved: 04-26-2023 04-26-2023 Episodic Other circulatory disease (20 sources) Thrombotic microangiopathy; 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] Onset: 04-26-2023 Resolved: 08-09-2024 03-06-2024 Chronic Other gastrointestinal disorders (20 sources) Chronic constipation; Translations: [Other constipation] Onset: 07-27-2023 07-27-2023 Episodic Other nutritional; endocrine; and metabolic disorders (4 sources) Abnormal weight loss; Translations: [ABNORMAL WEIGHT LOSS] Onset: 08-04-2021 Episodic Other nutritional; endocrine; and metabolic disorders (20 sources) Unintentional weight loss; Translations: [Abnormal weight loss] Onset: 04-26-2023 Resolved: 03-30-2024 04-26-2023 Episodic Other screening for suspected conditions (not mental disorders or infectious disease) (20 sources) Patient encounter status; Translations: [Encounter for screening mammogram for malignant neoplasm of breast] Onset: 12-06-2023 12-06-2023 Episodic Otitis media and related conditions (20 sources) Dysfunction of left eustachian tube; Translations: [Unspecified Eustachian tube disorder, left ear] Onset: 07-27-2023 07-27-2023 Episodic Jovita-; endo-; and myocarditis; cardiomyopathy (except that caused by tuberculosis or sexually transmitted disease) (20 sources) Pericardial effusion (noninflammatory); Translations: [Pericardial effusion] Onset: 10-16-2021 Resolved: 03-30-2024 Episodic Residual codes; unclassified (20 sources) Family history of coronary arteriosclerosis; Translations: [Family history of ischemic heart disease and other diseases of the circulatory system] Onset: 04-26-2023 04-26-2023 Episodic Screening and history of mental health and substance abuse codes (19 sources) Ex-smoker; Translations: [Personal history of nicotine dependence] Onset: 04-04-2024 Resolved: 08-09-2024 04-04-2024 Episodic Unclassified (1 source) OTH PERICARDIAL EFFUSION NONINFLAMM; Translations: [OTH PERICARDIAL EFFUSION NONINFLAMM] Onset: 01-05-2022 Unclassified (1 source) Other pericardial effusion (noninflammatory); Translations: [Other pericardial effusion (noninflammatory)] Onset: 01-14-2024 Unclassified (2 sources) Patient encounter status 04-04-2024 Results Test Name Value Interpretation Reference Range Facility Provider Letteron 08-18-2024 Provider Letter ARCELIA Santos [address] [place] [address] Re: Stephan López Date of Visit: 08/17/2024 Dear Gayla PANIAGUA, This patient was recently seen in the neurosurgical office. Please see attached note for further details. Let me know if you have any questions or concerns. Sincerely, MICHELLE Engle Providers: The following document(s) were included in the letter: August 17, 2024 11:18:22 EDT - (08/17/2024) Neurosurgery Office Visit Note Normal [facility] Neurosurgery Office/Clinic N oteon 08-17-2024 Neurosurgery Office/Clinic Note Chief Complaint back follow up History of Present Illness The patient is a pleasant 64-year-old female with history of diabetes, COPD, and chronic nicotine abuse who returns to the neurosurgical office approximately 2 years status post L3-5 decompression and posterior [...] brace 01/2023 and has since completed physical therapy and is currently established with [facility]. 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 XR scoliosis series reveal 10cm positive sagittal plane imbalance which we have discussed is likely contributing to her chronic low back pain. She is also known to have moderately severe central stenosis C6-7 for which she is asymptomatic. The patient returns today for ongoing clinically surveillance. She notes persistent low back pain which typically is more prominently right-sided however she experienced 2 exacerbations in the recent days affecting the left side lasting several hours before return to baseline symptoms. She is most painful if standing in her kitchen such as at the kitchen sink or her stove top. She is more comfortable sitting and laying down though pain does not completely resolve. She denies any lower extremity radicular pain, numbness, paresthesia or weakness. She denies any changes to bowel or bladder habits; no saddle paresthesia. No recent stumbles or falls. She notes intermittent cervicalgia though denies any upper extremity radicular pain, numbness, paresthesia or weakness. She denies difficulty with fine motor skills in the hands. The patient reports that due to an insurance change, she will no longer be able to visit with [facility]. As she has not undergone any recent injection therapy and rather follows only for medication therapy, she plans to ask her primary care provider to prescribe her current medication regimen including tramadol, meloxicam and tizanidine. She understands that should she require a new pain management provider, this office would be happy to provide a referral. Recent imaging (provider interpretation): X-ray scoliosis series 04/12/2024 at [facility] reveals mild generalized levoscoliosis throughout the entirety of the spine. No significant change compared to previous scoliosis imaging. Unfortunately, most recent pictures do not contain sagittal views to evaluate the patient's sagittal plane imbalance. MRI lumbar 08/03/2023 at [facility] reveals evidence of L3-5 posterior spinal [...] instability. CT lumbar spine 02/03/2023 at [facility] reveals evidence of L3-5 posterior spinal fusion with instrumentation and L4-5 interbody fusion. No evidence of hardware haloing, fracture or pullout. Fixed anterior listhesis L4-5 which is unchanged. Bilateral L5 pedicle fractures morena (more content not included)... Normal [facility] HbA1c (Bld) [Mass fraction]o n 08-09-2024 Interpretation and review of laboratory results Normal [facility] - Hematology and Cell countson 08-09-2024 HbA1c (Bld) [Mass fraction] 5.9 % [facility] CT LUNG SCREENING LOW DOSEon 04-20-2024 [place] [address] CT Scan Report Signed Patient: STEPHAN LÓPEZ MR#: [id number] : 1960 Acct:[id number] Age/Sex: 64 / F ADM Date: 04/20/24 Loc: CT Attending Dr: Gayla Martinez NP Ordering Physician: Gayla Martinez NP Date of Service: 04/20/24 Procedure(s): CT lung screening low-dose Accession Number(s): [id number] cc: Gayla Martinez NP [place] [id number] Patient Name: STEPHAN LÓPEZ MRN: [id number] date: 1960 Sex: F Assigned Patient Location: CT Current Patient Location: CT Accession/Order Number: [id number] Exam Date: 04/20/2024 15:34 Report Date: 04/20/2024 15:39 At the request of: GAYLA MARTINEZ NP Procedure: CT lung screening low-dose CT CHEST WITHOUT CONTRAST, LOW DOSE SCREENING: CLINICAL DATA: A 64-year old current smoker, smoking for 20+ pack-years. COMPARISON: None TECHNIQUE: Noncontrast axial CT scan images of the chest were obtained under the low dose screening CT protocol. Coronal and sagittal reconstructed images were also submitted. FINDINGS: Mediastinum : Suboptimal evaluation due to low-dose technique. Thoracic aorta appears normal in caliber. Pulmonary trunk appears nondilated. No pericardial effusion. No lymphadenopathy. The esophagus is grossly unremarkable. Lungs: No focal consolidation, pneumothorax or pleural effusion. Trachea and distal airways appear patent. Diffuse bronchial wall thickening. Mild lung scarring. No suspicious noncalcified pulmonary nodule or mass. Upper abdomen: No acute findings. Bony thorax and chest wall: Soft tissues surrounding the chest wall demonstrate no acute findings. Osseous structures demonstrate degenerative change. CT/CT lung screening low-dose IMPRESSION: NO SUSPICIOUS PULMONARY NODULE. LUNG - RADS Version 1.0 Assessment: Category 1, Negative (No nodules and definitely benign nodules). Management: Continue annual lung screening with LDCT in 12 months. Impression dictated by: Ronen Montgomery Jr., D.O.04/20/2024 3:39 PM Dictation Location: [place] [address] Electronically authenticated by: [id number] Y Date: 04/20/2024 15:39 Dictated By: Ronen Montgomery M.D. Signed By: 04/20/24 1542 DD/ 1539 TD/TT: Nuclear Medicine Supervisor: [facility] Radiology, Radiologist, - 04/20/2024 [place] [address] CT Scan Report Signed Patient: STEPHAN LÓPEZ MR#: [id number] : 1960 Acct:[id number] Age/Sex: 64 / F ADM Date: 04/20/24 Loc: CT Attending Dr: Gayla Martinez NP Ordering Physician: Gayla Martinez NP Date of Service: 04/20/24 Procedure(s): CT lung screening low-dose Accession Number(s): [id number] cc: Gayla Martinez NP [facility] [place] [address] Patient Name: STEPHAN LÓPEZ MRN: [facility]:[id number] date: 1960 Sex: F Assigned Patient Location: CT Current Patient Location: CT Accession/Order Number: [id number] Exam Date: 04/20/2024 15:34 Report Date: 04/20/2024 15:39 At the request of: GAYLA MARTINEZ NP Procedure: CT lung screening low-dose CT CHEST WITHOUT CONTRAST, LOW DOSE SCREENING: CLINICAL DATA: A 64-year old current smoker, smoking for 20+ pack-years. COMPARISON: None TECHNIQUE: Noncontrast axial CT scan images of the chest were obtained under the low dose screening CT protocol. Coronal and sagittal reconstructed images were also submitted. FINDINGS: Mediastinum : Suboptimal evaluation due to low-dose technique. Thoracic aorta appears normal in caliber. Pulmonary trunk appears nondilated. No pericardial effusion. No lymphadenopathy. The esophagus is grossly unremarkable. Lungs: No focal consolidation, pneumothorax or pleural effusion. Trachea and distal airways appear patent. Diffuse bronchial wall thickening. Mild lung scarring. No suspicious noncalcified pulmonary nodule or mass. Upper abdomen: No acute findings. Bony thorax and chest wall: Soft tissues surrounding the chest wall demonstrate no acute findings. Osseous structures demonstrate degenerative change. CT/CT lung screening low-dose IMPRESSION: NO SUSPICIOUS PULMONARY NODULE. LUNG - RADS Version 1.0 Assessment: Category 1, Negative (No nodules and definitely benign nodules). Management: Continue annual lung screening with LDCT in 12 months. Impression dictated by: Ronen Montgomery Jr., D.O.04/20/2024 3:39 PM Dictation Location: [place] [address] Electronically authenticated by: [id number] Y Date: 04/20/2024 15:39 Dictated By: Ronen Montgomery M.D. Signed By: 04/20/24 1542 DD/ 1539 TD/TT: Nuclear Medicine Supervisor: [facility] Radiology Study observation (narrative) [facility] CT LUNG SCREENING LOW DOSEOr dered By: Radiologist Radiology on 04-20-2024 [facility] Work Phone: MM TOMOSYNTHESIS SCREENING B Ion 04-20-2024 [place] [address] Mammography Report Signed Patient: STEPHAN LÓPEZ MR#: [id number] : 1960 Acct:[id number] Age/Sex: 64 / F ADM Date: 04/20/24 Loc: CT Attending Dr: Gayla Martinez NP Ordering Physician: Gayla Martinez NP Results: Date of Service: 04/20/24 Follow Up: Procedure(s): MM tomosynthesis screening BI Accession Number(s): [id number] cc: Gayla Martinez NP Patient Name: STEPHAN LÓPEZ MR#: [id number] : 1960 Exam Date: 04/20/2024 Ordering Doctor: GAURAV Martinez CNP RADIOLOGY REPORT PROCEDURE: MM TOMOSYNTHESIS SCREENING BI COMPARISON: MM TOMOSYNTHESIS SCREENING BI, 12/03/2022. INDICATIONS: Screening Calculator Name NCI Breast Cancer Risk Assessment Tool 5 Year Breast Cancer Risk 1.80% Lifetime Breast Cancer Risk 7.20% Personal Breast Cancer No Personal Ovarian Cancer No Treatments None Family Cancers None LOCATION: [facility] BREAST COMPOSITION: There are scattered areas [...] Signed By: 04/20/24 1556 DD/ 1555 TD/TT: Nuclear Medicine Supervisor: [facility] [facility] Radiology, Radiologist, MD - 04/20/2024 [place] [address] Mammography Report Signed Patient: STEPHAN LÓPEZ MR#: [id number] : 1960 Acct:[id number] Age/Sex: 64 / F ADM Date: 04/20/24 Loc: CT Attending Dr: Gayla Martinez NP Ordering Physician: Gayla Martinez NP Results: Date of Service: 04/20/24 Follow Up: Procedure(s): MM tomosynthesis screening BI Accession Number(s): [id number] cc: Gayla Martinez NP Patient Name: STEPHAN LÓPEZ MR#: [id number] : 1960 Exam Date: 04/20/2024 Ordering Doctor: GAURAV Martinez CNP RADIOLOGY REPORT PROCEDURE: MM TOMOSYNTHESIS SCREENING BI COMPARISON: MM TOMOSYNTHESIS SCREENING BI, 12/03/2022. INDICATIONS: Screening Calculator Name NCI Breast Cancer Risk Assessment Tool 5 Year Breast Cancer Risk 1.80% Lifetime Breast Cancer Risk 7.20% Personal Breast Cancer No Personal Ovarian Cancer No Treatments None Family Cancers None LOCATION: [facility] BREAST COMPOSITION: There are scattered areas [...] DO on 04/20/2024 at 15:51 Approved by: Rnoen Montgomery DO on 04/20/2024 at 15:55 Dictated By: Ronen Montgomery M.D. Signed By: 04/20/241555 DD/ 54 TD/TT: Nuclear Medicine Supervisor: [facility] Radiology Study observation (narrative) [facility] MM TOMOSYNTHESIS SCREENING B IOrdered By: Radiologist Radiology on 04-20-2024 [facility] Work Phone: XR Thoracic and lumbar spine AP Views for scoliosis W standing and W right bending and W left bending and WO bendingon 04-13-[address] [address] XRay Report Signed Patient: STEPHAN LÓPEZ MR#: [id number] : 1960 Acct:[id number] Age/Sex: 64 / F ADM Date: 04/12/24 Loc: RAD Attending Dr: Dasha HODGES Ordering Physician: Dasha Waggoner Date of Service: 04/12/24 Procedure(s): XR scoliosis survey Accession Number(s): [id number] cc: Gayla Martinez WASH MILL OPERATOR; Dasha Waggoner [address] [address] Patient Name: STEPHAN LÓPEZ MRN: [id number] date: 1960 Sex: F Assigned Patient Location: RAD Current Patient Location: CT Accession/Order Number: [id number] Exam Date: 04/13/2024 10:11 Report Date: 04/13/2024 10:16 At the request of: DASHA HODGES Procedure: XR scoliosis survey THORACOLUMBAR SPINE (scoliosis survey) - 9 images COMPARISON: Lumbar spine 05/12/2023 CLINICAL DATA: Sagittal and balance and chronic back pain Multiple AP views of the thoracic and lumbar spine were obtained including upright view with long cassette in neutral and bending positions. There is prior laminectomy and fusion at the lower lumbar spine extending from L3 through L5. There are degenerative changes of the spine with endplate spurring. No obvious acute fractures are identified within limits of this single projection. There is slight thoracolumbar levoscoliotic curvature. The angle of curvature is estimated at 10 degrees. No paraspinal soft tissue abnormalities are noted. XR/XR scoliosis survey IMPRESSION: POSTOPERATIVE CHANGES OF LOWER LUMBAR SPINE. MILD DEGENERATIVE SPURRING. SLIGHT THORACOLUMBAR LEVOSCOLIOSIS. Impression dictated by: Clarice Gupta M.D.04/13/2024 10:16 AM Dictation Location: [place] [address] Electronically authenticated by: [id number] Y Date: 04/13/2024 10:16 Dictated By: Clarice Gupta M.D. Signed By: 04/13/24 1237 DD/ 1016 TD/TT: Nuclear Medicine Supervisor: [facility] Radiology, Radiologist, - 04/13/2024 [place] [address] XRay Report Signed Patient: STEPHAN LÓPEZ MR#: [id number] : 1960 Acct:[id number] Age/Sex: 64 / F ADM Date: 04/12/24 Loc: RAD Attending Dr: Dasha HODGES Ordering Physician: Dasha Waggoner Date of Service: 04/12/24 Procedure(s): XR scoliosis survey Accession Number(s): [id number] cc: Gayla Martinez NP; Dasha Waggoner [place] [id number] Patient Name: STEPHAN LÓPEZ MRN: [facility]:[id number] date: 1960 Sex: F Assigned Patient Location: RAD Current Patient Location: CT Accession/Order Number: [id number] Exam Date: 04/13/2024 10:11 Report Date: 04/13/2024 10:16 At the request of: DASHA HODGES Procedure: XR scoliosis survey THORACOLUMBAR SPINE (scoliosis survey) - 9 images COMPARISON: Lumbar spine 05/12/2023 CLINICAL DATA: Sagittal and balance and chronic back pain Multiple AP views of the thoracic and lumbar spine were obtained including upright view with long cassette in neutral and bending positions. There is prior laminectomy and fusion at the lower lumbar spine extending from L3 through L5. There are degenerative changes of the spine with endplate spurring. No obvious acute fractures are identified within limits of this single projection. There is slight thoracolumbar levoscoliotic curvature. The angle of curvature is estimated at 10 degrees. No paraspinal soft tissue abnormalities are noted. XR/XR scoliosis survey IMPRESSION: POSTOPERATIVE CHANGES OF LOWER LUMBAR SPINE. MILD DEGENERATIVE SPURRING. SLIGHT THORACOLUMBAR LEVOSCOLIOSIS. Impression dictated by: Clarice Gupta M.D.04/13/2024 10:16 AM Dictation Location: [facility] Electronically authenticated by: [id number] Y Date: 04/13/2024 10:16 Dictated By: Clarice Gupta M.D. Signed By: 04/13/24 1237 DD/ 1016 TD/TT: Nuclear Medicine Supervisor: [facility] Radiology Study observation (narrative) [facility] XR Thoracic and lumbar spine AP Views for scoliosis W standing and W right bending and W left bending and WO bendingOrdered By: Radiologist Radiology on 04-13-2024 [facility] Work Phone: HbA1c (Bld) [Mass fraction]o n 04-04-2024 Interpretation and review of laboratory results Abnormal [facility] - Hematology and Cell countson 04-04-2024 HbA1c (Bld) [Mass fraction] 6.10 % [facility] Neurosurgery Office/Clinic N oteon 03-16-2024 Neurosurgery [...] completed physical therapy. She is established with [facility] pain management. She is also known to [...] the hands. She continues to follow with [place] [facility] pain management with most recent injection including a caudal epidural which the patient has found some benefit. The patient brings a brochure with her to today's visit regarding a [employer] spinal cord stimulator for which she has [...] imaging (provider interpretation): MRI lumbar 08/03/2023 at [facility] reveals evidence of L3-5 posterior spinal [...] instability. CT lumbar spine 02/03/2023 at [facility] reveals evidence of L3-5 posterior spinal fu (more content not included)... Normal [facility] Office Visiton 01-14-2024 Follow-up visit [id number] James López 1960 F Date Provider Department Center 01/14/2024 3848-CARL WILLIS CARD Carlos Alberto Ramsay Family History Problem Relation Age of Onset Other Mother Heart attack Father Other Father Other Father Other Maternal Grandmother Family Status - Relation Status Age at Mother Father Maternal Grandmother Level of Service:30959 PA OFFICE/OUTPATIENT ESTABLISHED MOD MDM 30 MIN Normal [facility] IGP,APTIMA HPV,AGE GDLNon AGE GDLN ACOG TESTING Note . [facility] Comment on above: TESTS RESULT FLAG UN ITS REF RANGE LAB Clinician Provided Cytology Information Source.............Cervix;Endocervix Other..............Post Menopausal No. of containers..01 ThinPrep Vial Age Algo ACOG Radha... 30-65 01 FLAG LEGEND: L-Low Normal,H-High Normal,LL-Alert Low,HH-Alert High <-Panic Low,>-Panic High,A-Abnormal,AA-Critical Abnormal Performed at: 01 =G [address] [place] [address] Amirah Barnett MD, HPV APTIMA Negative Negative [facility] Comment on above: This nucleic acid am plification test detects fourteen high- risk HPV types (16,18,31,33,35,39,45,51,52,56,58,59,66,68) without differentiation. Performed at: =G - [facility] [id number] Heating And Refrigeration Inspector: Amirah Barnett MD, Phone: [phone] Performed at: - [facility], [place] [id number] Heating And Refrigeration Inspector: Amirah Barnett MD, Phone: [phone] IGP, APTIMA HPV, RFX 16/18,45 Note . [facility] Comment on above: TESTS RESULT FLAG UN ITS REF RANGE LAB DIAGNOSIS: 02 NEGATIVE FOR INTRAEPITHELIAL LESION OR MALIGNANCY. CELLULAR CHANGES ASSOCIATED WITH ATROPHY ARE PRESENT. Specimen adequacy: 02 Satisfactory for evaluation. Endocervical and/or squamous metaplastic cells (endocervical component) are present. Performed by: Dayanna Olson, Clearance Coordinator ([facility]) . 02 Note: Note 02 The [...] Low,>-Panic High,A-Abnormal,AA-Critical Abnormal Performed at: 02 [address] [facility] [address] [place] [address] Amirah Barnett MD, BROOM-ALONE MENOPAUSAL CERVIX ENDOCERVIX [facility] Provider Letteron 10-27-2023 Provider Letter ARCELIA Santos [address] [place] [address] Re: Stephan López Date of Visit: 10/26/2023 Dear Gayla PANIAGUA, This patient was recently seen in the neurosurgical office. Please see attached note for further details. Let me know if you have any questions or concerns. Sincerely, MICHELLE Engle Providers: Gwendolyn Salamanca The following document(s) were included in the letter: October 26, 2023 14:35:44 EDT - (10/26/2023) Neurosurgery Office Visit Note Normal [facility] Neurosurgery Office/Clinic N oteon 10-26-2023 Neurosurgery [...] or weakness. She continues to follow with [facility] pain management and has undergone previous L5-S1 transforaminal SVITLANA 05/10/2023 with approximately 2 to 3 weeks incomplete benefit. She has also undergone bilateral sacroiliac joint injections. She is utilizing meloxicam and tizanidine once daily for pain as well as tramadol on rare occasion. Recent imaging (provider interpretation): MRI lumbar 08/03/2023 at [facility] reveals evidence of L3-5 posterior spinal [...] instability. CT lumbar spine 02/03/2023 at [facility] reveals evidence of L3-5 posterior [...] (more content not included)... Normal [facility] INFLUENZA A AND B AGon 0 04-08-2023 INFLUENZA VIRUS A ANTIGEN Positive Abnormal [facility] Comment on above: NOTE: Live attenuate d influenza vaccine viruses can cause a positive result for a rapid influenza diagnostic test if administered up to 7 days prior to rapid testing. INFLUENZA VIRUS B ANTIGEN Negative [facility] Comment on above: Negative for Flu B p rotein antigen. Infection due to Flu B cannot be ruled out. Flu B antigen in the sample may be below the detection limit of the test. Interpretation and review of laboratory results Abnormal [facility] 36on 03-19-2023 36 Please let her know her labs showed normal kidney function. Can continue lisinopril. Thank you Normal [facility] Telephoneon 03-19-2023 Telephone [id number] James López 1960 F Date Provider Department Center 03/19/2023 DANTE BAIG Rufus . Family History Problem Relation Age of Onset Other Mother Heart attack Father Other Father Other Father Other Maternal Grandmother Family Status - Relation Status Age at Mother Father Maternal Grandmother Normal [facility] Office Visiton 01-19-2023 Follow-up visit [id number] James López 1960 F Date Provider Department Center 01/19/2023 DANTE BAIG ROXY [facility] Family History Problem Relation Age of Onset Other Mother Heart attack Father Other Father Other Father Other Maternal Grandmother Family Status - Relation Status Age at Mother Father Maternal Grandmother Level of Service:36406 PA OFFICE/OUTPATIENT ESTABLISHED LOW MDM 20-29 MIN Reason for Visit and Comments: Follow-up [876963] Hypertension [837387] Normal [facility] PROF CHEM 8 (BAS METB)on Anion gap [Moles/Vol] 12.9 mmol/L Normal [facility] Comment on above: Performed By: #### C BC #### [facility] [address] [address] [address] Yariel Herrera Calcium [Mass/Vol] 9.0 mg/dL Normal 8.5-10.1 [facility] Comment on above: Performed By: #### C BC #### [facility] [address] [address] [address] Yariel Herrera Chloride [Moles/Vol] 106 mmol/L Normal 98-107 [facility] Comment on above: Performed By: #### C BC #### [facility] [address] [address] [address] Yariel Herrera CO2 [Moles/Vol] 28.3 mmol/L Normal 21.0-32.0 [facility] Comment on above: Performed By: #### C BC #### [facility] [address] [place] [address] [address] Yariel Herrera Creatinine [Mass/Vol] 0.81 mg/dL Normal 0.55-1.02 [facility] Comment on above: Performed By: #### C BC #### [facility] [address] [place] [address] [address] Yariel Herrera EGFR-AF NEW ZEALANDER >60 Normal >=60 [facility] Comment on above: Performed By: #### C BC #### [facility] [address] [place] [address] [address] Yariel Herrera EGFR-NON AF NEW ZEALANDER >60 Normal >=60 [facility] Comment on above: Performed By: #### C BC #### [facility] [address] [place] [address] [address] Yariel Herrera Glucose [Mass/Vol] 103 mg/dL Normal 74-106 [facility] Comment on above: Performed By: #### C BC #### [facility] [address] [address] [address] Yariel Herrera Potassium [Moles/Vol] 4.2 mmol/L Normal 3.5-5.1 [facility] Comment on above: Performed By: #### C BC #### [facility] [address] [place] [address] [address] Yariel Herrera Sodium [Moles/Vol] 143 mmol/L Normal 136-145 [facility] Comment on above: Performed By: #### C BC #### [facility] [address] [address] [address] Yariel Herrera Urea nitrogen [Mass/Vol] 9.0 mg/dL Normal 7.0-18.0 [facility] Comment on above: Performed By: #### C BC #### [facility] [address] [place] [address] Dr. Yariel Herrera Urea nitrogen/Creatinine [Mass ratio] 11.1 mg/mg Normal [facility] Comment on above: Performed By: #### C BC #### [facility] [address] [address] [address] Yariel Herrera ECHOCARDIO M/2D COMPLETEon 0 05-08-2022 ECHOCARDIO M/2D COMPLETE Patient: STEPHAN LÓPEZ Exam Date: 05/08/2022 : 1960 Gender:F Ordering : CARL WILLIS Admission #: [id number] Family : GAURAV MARTINEZ CHECKERER HAND Order #: [id number] CLICK HERE TO VIEW EXAM ECHOCARDIOGRAM REPORT [...] on 05/08/2022 at 14:20 Normal [facility] ABHINAV by IFAon 01-08-2022 Antinuclear Antibodies, IFA Negative Normal [facility] Comment on above: Result Comment: Nega tive <1:80 Borderline 1:80 Positive >1:80 ICAP nomenclature: AC-0 For more information about Hep-2 cell patterns use ANApatterns.org, the official website for the International Consensus on Antinuclear Antibody (ABHINAV) Patterns (ICAP). Performed By: #### A NAIFA #### [facility] [address] [place] [address] Dr. Yariel Herrera CBC AUTO DIFFon 01-05-2022 BASO # 0.1 103/ul Normal 0.0-0.1 [facility] Comment on above: Performed By: #### C BC #### [facility] [address] [place] [address] Dr. Yariel Herrera Basophils/100 WBC (Bld) 0.6 % Normal 0.2-2.0 [facility] Comment on above: Performed By: #### C BC #### [facility] [address] [place] [address] Dr. Yariel Herrera EO # 0.2 103/ul Normal 0.0-0.7 [facility] Comment on above: Performed By: #### C BC #### [facility] [address] [place] [address] Dr. Yariel Herrera Eosinophils/100 WBC (Bld) 1.4 % Normal 0.9-7.0 [facility] Comment on above: Performed By: #### C BC #### [facility] [address] [place] [address] Dr. Yariel Herrera Erythrocyte distribution width (RBC) [Ratio] 13.6 % Normal 11.0-15.0 [facility] Comment on above: Performed By: #### C BC #### [facility] [address] [place] [address] Dr. Yariel Herrera Hematocrit (Bld) [Volume fraction] 46.6 % Normal 36.0-48.0 [facility] Comment on above: Performed By: #### C BC #### [facility] [address] [place] [address] Dr. Yariel Herrera Hemoglobin (Bld) [Mass/Vol] 15.4 g/dL Normal 12.0-16.0 [facility] Comment on above: Performed By: #### C BC #### [facility] [address] [address] [address] Yariel Herrera IG # 0.03 10e3/ul Normal 0.00-0.03 [facility] Comment on above: Performed By: #### C BC #### [facility] [address] [place] [address] Dr. Yariel Herrera IG % 0.2 % Normal 0.0-0.5 [facility] Comment on above: Performed By: #### C BC #### [facility] [address] [place] [address] Dr. Yariel Herrera LYMPH # 4.2 103/ul Critically high 1.2-3.8 [facility] Comment on above: Performed By: #### C BC #### [facility] [address] [place] [address] Dr. Yariel Herrera Lymphocytes/100 WBC (Bld) 31.3 % Normal 20.5-60.0 [facility] Comment on above: Performed By: #### C BC #### [facility] [address] [place] [address] Dr. Yariel Herrera MANUAL DIFF REQ NO Normal [facility] Comment on above: Performed By: #### C BC #### [facility] [address] [place] [address] Dr. Yariel Herrera MCH (RBC) [Entitic mass] 31.6 pg Normal 26.7-34.0 [facility] Comment on above: Performed By: #### C BC #### [facility] [address] [place] [address] Dr. Yariel Herrera MCHC (RBC) [Mass/Vol] 33.0 g/dL Normal 29.9-35.2 [facility] Comment on above: Performed By: #### C BC #### [facility] [address] [place] [address] Dr. Yariel Herrera MCV (RBC) [Entitic vol] 95.7 fL Normal 81.0-99.0 [facility] Comment on above: Performed By: #### C BC #### [facility] [address] [address] [address] Yariel Herrera MONO # 0.9 103/ul Critically high 0.3-0.[address] [facility] Comment on above: Performed By: #### C BC #### [facility] [address] [address] [address] Yariel Herrera Monocytes/100 WBC (Bld) 6.8 % Normal 1.7-12.0 [facility] Comment on above: Performed By: #### C BC #### [facility] [address] [place] [address] Dr. Yariel Herrera NEUT # 8.0 103/ul Critically high 1.4-6.[address] [facility] Comment on above: Performed By: #### C BC #### [facility] [address] [place] [address] Dr. Yariel Herrera Neutrophils/100 WBC (Bld) 59.7 % Normal 43.0-75.0 [facility] Comment on above: Performed By: #### C BC #### [facility] [address] [place] [address] Dr. Yariel Herrera Platelet mean volume (Bld) [Entitic vol] 10.7 fL Normal 9.5-13.5 [facility] Comment on above: Performed By: #### C BC #### [facility] [address] [place] [address] Dr. Yariel Herrera PLT 340 103/ul Normal 150-450 [facility] Comment on above: Performed By: #### C BC #### [facility] [address] [place] [address] Dr. Yariel Herrera RBC 4.87 106/ul Normal 4.20-5.40 [facility] Comment on above: Performed By: #### C BC #### [facility] [address] [place] [address] Dr. Yariel Herrera WBC 13.4 103/ul Critically high 4.0-11.0 [facility] Comment on above: Performed By: #### C BC #### [facility] [address] [address] [address] Yariel Herrera FREE T4on 01-05-2022 Free T4 [Mass/Vol] 1.06 ng/dL Normal 0.76-1.46 [facility] Comment on above: Performed By: #### C BC #### [facility] [address] [place] [address] Dr. Yariel Herrera PROF 14(COMP METB)on 022 Albumin [Mass/Vol] 3.9 g/dL Normal 3.4-5.0 [facility] Comment on above: Performed By: #### C MP, TSH #### [facility] [address] [place] [address] Dr. Yariel Herrera Albumin/Globulin [Mass ratio] 1.1 {ratio} Normal [facility] Comment on above: Performed By: #### C MP, TSH #### [facility] [address] [place] [address] Dr. Yariel Herrera ALP [Catalytic activity/Vol] 99 U/L Normal 46-116 [facility] Comment on above: Performed By: #### C MP, TSH #### [facility] [address] [place] [address] Dr. Yariel Herrera ALT [Catalytic activity/Vol] 17 U/L Normal 14-59 [facility] Comment on above: Performed By: #### C MP, TSH #### [facility] [address] [place] [address] Dr. Yariel Herrera Anion gap [Moles/Vol] 10.1 mmol/L Normal [facility] Comment on above: Performed By: #### C MP, TSH #### [facility] [address] [place] [address] Dr. Yariel Herrera AST [Catalytic activity/Vol] 14 U/L Critically low 15-37 [facility] Comment on above: Performed By: #### C MP, TSH #### [facility] [address] [place] [address] Dr. Yariel Herrera Bilirubin [Mass/Vol] 0.3 mg/dL Normal 0.2-1.0 [facility] Comment on above: Performed By: #### C MP, TSH #### [facility] [address] [address] [address] Yariel Herrera Calcium [Mass/Vol] 9.4 mg/dL Normal 8.5-10.1 [facility] Comment on above: Performed By: #### C MP, TSH #### [facility] [address] [address] [address] Yariel Herrera Chloride [Moles/Vol] 103 mmol/L Normal 98-107 [facility] Comment on above: Performed By: #### C MP, TSH #### [facility] [address] [address] [address] Yariel Herrera CO2 [Moles/Vol] 30.9 mmol/L Normal 21.0-32.0 [facility] Comment on above: Performed By: #### C MP, TSH #### [facility] [address] [place] [address] Dr. Yariel Herrera Creatinine [Mass/Vol] 0.88 mg/dL Normal 0.55-1.02 [facility] Comment on above: Performed By: #### C MP, TSH #### [facility] [address] [address] [address] Yariel Herrera EGFR-AF NEW ZEALANDER >60 Normal >=60 [facility] Comment on above: Performed By: #### C MP, TSH #### [facility] [address] [place] [address] Dr. Yairel Herrera EGFR-NON AF NEW ZEALANDER >60 Normal >=60 [facility] Comment on above: Performed By: #### C MP, TSH #### [facility] [address] [address] [address] Yariel Herrera Globulin (S) [Mass/Vol] 3.5 g/dL Normal [facility] Comment on above: Performed By: #### C MP, TSH #### [facility] [address] [address] [address] Yariel Herrera Glucose [Mass/Vol] 117 mg/dL Critically high 74-106 [facility] Comment on above: Performed By: #### C MP, TSH #### [facility] [address] [place] [address] Dr. Yariel Herrera Potassium [Moles/Vol] 4.0 mmol/L Normal 3.5-5.1 [facility] Comment on above: Performed By: #### C MP, TSH #### [facility] [address] [place] [address] Dr. Yariel Herrera Protein [Mass/Vol] 7.4 g/dL Normal 6.4-8.2 [facility] Comment on above: Performed By: #### C MP, TSH #### [facility] [address] [place] [address] Dr. Yariel Herrera Sodium [Moles/Vol] 140 mmol/L Normal 136-145 [facility] Comment on above: Performed By: #### C MP, TSH #### [facility] [address] [place] [address] Dr. Yariel Herrera Urea nitrogen [Mass/Vol] 18.0 mg/dL Normal 7.0-18.0 [facility] Comment on above: Performed By: #### C MP, TSH #### [facility] [address] [place] [address] Dr. Yariel Herrera Urea nitrogen/Creatinine [Mass ratio] 20.5 mg/mg Normal [facility] Comment on above: Performed By: #### C MP, TSH #### [facility] [address] [place] [address] Dr. Yariel Herrera TSHon 01-05-2022 TSH 1.380 uIU/mL Normal 0.358-3.740 [facility] Comment on above: Performed By: #### C MP, TSH #### [facility] [address] [place] [address] Dr. Yariel Herrera GLYCOHEMOGLOBIN A1Con 2021 ADA RECOMMENDATION SEE BELOW Normal [facility] Comment on above: Result Comment: ADA RECOMMENDED LIMIT 4.0 - 6.0 ADA THERAPEUTIC TARGET < 7.0 ACTION SUGGESTED > 7.0 Performed By: #### A 1C #### [facility] [address] [place] [address] Dr. Yariel Herrera Glucose [Mass/Vol] 137 mg/dL Normal [facility] Comment on above: Performed By: #### A 1C #### [facility] [address] [place], [place] [address] Dr. Yariel Herrera HbA1c (Bld) [Mass fraction] 6.4 % Critically high 4.5-6.2 [facility] Comment on above: Performed By: #### A 1C #### [facility] [address] [place], [place] [address] Dr. Yariel Herrera ECHOCARDIO M/2D COMPLETEon 0 10-16-2021 ECHOCARDIO M/2D COMPLETE Patient: STEPHAN LÓPEZ Exam Date: 10/16/2021 : 1960 Gender:F Ordering : CARL WILLIS Admission #: [id number] Family : Order #: [id number] CLICK HERE TO VIEW EXAM ECHOCARDIOGRAM REPORT [...] Melvin M.D. on 10/16/2021 at 17:12 Normal [facility] ECHOCARDIO M/2D COMPLETEon 0 09-16-2021 ECHOCARDIO M/2D COMPLETE Patient: STEPHAN LÓPEZ Exam Date: 09/16/2021 : 1960 Gender:F Ordering : GAURAV GAYLA MARTINEZ [facility] Admission #: [id number] Family : Order #: [id number] CLICK HERE TO VIEW EXAM ECHOCARDIOGRAM REPORT [...] Melvin M.D. on 09/17/2021 at 13:02 Normal [facility] CBC AUTO DIFFon 08-04-2021 BASO # 0.1 103/ul Normal 0.0-0.1 [facility] Comment on above: Performed By: #### C BC #### [facility] [address] [place] [address] [address] Yariel Herrera Basophils/100 WBC (Bld) 0.6 % Normal 0.2-2.0 [facility] Comment on above: Performed By: #### C BC #### [facility] [address] [address] [address] Yariel Herrera EO # 0.1 103/ul Normal 0.0-0.7 [facility] Comment on above: Performed By: #### C BC #### [facility] [address] [place] [address] Dr. Yariel Herrera Eosinophils/100 WBC (Bld) 0.9 % Normal 0.9-7.0 [facility] Comment on above: Performed By: #### C BC #### [facility] [address] [place] [address] Dr. Yariel Herrera Erythrocyte distribution width (RBC) [Ratio] 13.8 % Normal 11.0-15.0 [facility] Comment on above: Performed By: #### C BC #### [facility] [address] [place] [address] Dr. Yariel Herrera Hematocrit (Bld) [Volume fraction] 47.1 % Normal 36.0-48.0 [facility] Comment on above: Performed By: #### C BC #### [facility] [address] [place] [address] Dr. Yariel Herrera Hemoglobin (Bld) [Mass/Vol] 15.2 g/dL Normal 12.0-16.0 [facility] Comment on above: Performed By: #### C BC #### [facility] [address] [place] [address] Dr. Yariel Herrera IG # 0.04 10e3/ul Critically high 0.00-0.03 [facility] Comment on above: Performed By: #### C BC #### [facility] [address] [place] [address] Dr. Yariel Herrera IG % 0.3 % Normal 0.0-0.5 [facility] Comment on above: Performed By: #### C BC #### [facility] [address] [place] [address] Dr. Yariel Herrera LYMPH # 3.7 103/ul Normal 1.2-3.8 [facility] Comment on above: Performed By: #### C BC #### [facility] [address] [place] [address] Dr. Yariel Herrera Lymphocytes/100 WBC (Bld) 30.6 % Normal 20.5-60.0 [facility] Comment on above: Performed By: #### C BC #### [facility] [address] [place] [address] Dr. Yariel Herrera MANUAL DIFF REQ NO Normal [facility] Comment on above: Performed By: #### C BC #### [facility] [address] [place] [address] Dr. Yariel Herrera MCH (RBC) [Entitic mass] 32.0 pg Normal 26.7-34.0 [facility] Comment on above: Performed By: #### C BC #### [facility] [address] [place] [address] Dr. Yariel Herrera MCHC (RBC) [Mass/Vol] 32.3 g/dL Normal 29.9-35.2 [facility] Comment on above: Performed By: #### C BC #### [facility] [address] [place] [address] Dr. Yariel Herrera MCV (RBC) [Entitic vol] 99.2 fL Critically high 81.0-99.0 [facility] Comment on above: Performed By: #### C BC #### [facility] [address] [place] [address] Dr. Yariel Herrera MONO # 0.9 103/ul Critically high 0.3-0.[address] [facility] Comment on above: Performed By: #### C BC #### [facility] [address] [place] [address] Dr. Yariel Herrera Monocytes/100 WBC (Bld) 7.4 % Normal 1.7-12.0 [facility] Comment on above: Performed By: #### C BC #### [facility] [address] [place] [address] Dr. Yariel Herrera NEUT # 7.3 103/ul Critically high 1.4-6.5 [facility] Comment on above: Performed By: #### C BC #### [facility] [address] [place] [address] Dr. Yariel Herrera Neutrophils/100 WBC (Bld) 60.2 % Normal 43.0-75.0 [facility] Comment on above: Performed By: #### C BC #### [facility] [address] [place] [address] Dr. Yariel Herrera Platelet mean volume (Bld) [Entitic vol] 11.7 fL Normal 9.5-13.5 [facility] Comment on above: Performed By: #### C BC #### [facility] [address] [place] [address] Dr. Yariel Herrera PLT 330 103/ul Normal 150-450 [facility] Comment on above: Performed By: #### C BC #### [facility] [address] [place] [address] Dr. Yariel Herrera RBC 4.75 106/ul Normal 4.20-5.40 [facility] Comment on above: Performed By: #### C BC #### [facility] [address] [place] [address] Dr. Yariel Herrera WBC 12.1 103/ul Critically high 4.0-11.0 [facility] Comment on above: Performed By: #### C BC #### [facility] [address] [place] [address] Dr. Yariel Herrera FREE T3on 08-04-2021 FREE T3 2.46 pg/mlL Normal 2.18-3.98 [facility] Comment on above: Performed By: #### C BC #### [facility] [address] [place] [address] Dr. Yariel Herrera FREE T4on 08-04-2021 Free T4 [Mass/Vol] 1.08 ng/dL Normal 0.76-1.46 [facility] Comment on above: Performed By: #### F T4 #### [facility] [address] [place] [address] Dr. Yariel Herrera PROF 14(COMP METB)on 022 Albumin [Mass/Vol] 4.2 g/dL Normal 3.4-5.0 [facility] Comment on above: Performed By: #### C BC #### [facility] [address] [place] [address] Dr. Yariel Herrera Albumin/Globulin [Mass ratio] 1.2 {ratio} Normal [facility] Comment on above: Performed By: #### C BC #### [facility] [address] [place] [address] Dr. Yariel Herrera ALP [Catalytic activity/Vol] 87 U/L Normal 46-116 [facility] Comment on above: Performed By: #### C BC #### [facility] [address] [place] [address] Dr. Yariel Herrera ALT [Catalytic activity/Vol] 25 U/L Normal 14-59 [facility] Comment on above: Performed By: #### C BC #### [facility] [address] [place] [address] Dr. Yariel Herrera Anion gap [Moles/Vol] 13.3 mmol/L Normal [facility] Comment on above: Performed By: #### C BC #### [facility] [address] [place] [address] Dr. Yariel Herrera AST [Catalytic activity/Vol] 15 U/L Normal 15-37 [facility] Comment on above: Performed By: #### C BC #### [facility] [address] [place] [address] Dr. Yariel Herrera Bilirubin [Mass/Vol] 0.5 mg/dL Normal 0.2-1.0 [facility] Comment on above: Performed By: #### C BC #### [facility] [address] [place] [address] Dr. Yariel Herrera Calcium [Mass/Vol] 9.6 mg/dL Normal 8.5-10.1 [facility] Comment on above: Performed By: #### C BC #### [facility] [address] [place] [address] Dr. Yariel Herrera Chloride [Moles/Vol] 103 mmol/L Normal 98-107 [facility] Comment on above: Performed By: #### C BC #### [facility] [address] [place] [address] Dr. Yariel Herrera CO2 [Moles/Vol] 28.9 mmol/L Normal 21.0-32.0 [facility] Comment on above: Performed By: #### C BC #### [facility] [address] [place] [address] Dr. Yariel Herrera Creatinine [Mass/Vol] 0.84 mg/dL Normal 0.55-1.02 [facility] Comment on above: Performed By: #### C BC #### [facility] [address] [place] [address] Dr. Yariel Herrera EGFR-AF NEW ZEALANDER >60 Normal >=60 [facility] Comment on above: Performed By: #### C BC #### [facility] [address] [place] [address] Dr. Yariel Herrera EGFR-NON AF [place] ZEALANDER >60 Normal >=60 [facility] Comment on above: Performed By: #### C BC #### [facility] [address] [place] [address] Dr. Yariel Herrera Globulin (S) [Mass/Vol] 3.4 g/dL Normal [facility] Comment on above: Performed By: #### C BC #### [facility] [address] [place] [address] Dr. Yariel Herrera Glucose [Mass/Vol] 111 mg/dL Critically high 74-106 [facility] Comment on above: Performed By: #### C BC #### [facility] [address] [place] [address] Dr. Yariel Herrera Potassium [Moles/Vol] 4.2 mmol/L Normal 3.5-5.1 [facility] Comment on above: Performed By: #### C BC #### [facility] [address] [place] [address] Dr. Yariel Herrera Protein [Mass/Vol] 7.6 g/dL Normal 6.4-8.2 [facility] Comment on above: Performed By: #### C BC #### [facility] [address] [place] [address] Dr. Yariel Herrera Sodium [Moles/Vol] 141 mmol/L Normal 136-145 [facility] Comment on above: Performed By: #### C BC #### [facility] [address] [place] [address] Dr. Yariel Herrera Urea nitrogen [Mass/Vol] 15.0 mg/dL Normal 7.0-18.0 [facility] Comment on above: Performed By: #### C BC #### [facility] [address] [place] [address] Dr. Yariel Herrera Urea nitrogen/Creatinine [Mass ratio] 17.9 mg/mg Normal [facility] Comment on above: Performed By: #### C BC #### [facility] [address] [place] [address] Dr. Yariel Herrera TSHon 08-04-2021 TSH 1.073 uIU/mL Normal 0.358-3.740 [facility] Comment on above: Performed By: #### C BC #### [facility] [address] [place] [address] Dr. Yariel Herrera TSH RANGE SEE BELOW Normal [facility] Comment on above: Result Comment: <0.3 4 UIU/ml HYPERTHYROID 0.34-5.60 UIU/ml EUTHYROID >5.60 UIU/ml HYPOTHYROID Performed By: #### C BC #### [facility] [address] [place] [address] Dr. Yariel Herrera Vital Signs Date Time Vital Sign Value Performing Clinician Judy floresy 08-09-2024 13:30-0400 Body mass index (BMI) [Ratio] 21.14 kg/m2 Gayla Martinez WASH MILL OPERATOR Work Phone: [facility] 08-09-2024 13:30-0400 Body temperature 98.29 [degF] Gayla Tieshaholz WASH MILL OPERATOR Work Phone: [facility] 08-09-2024 13:30-0400 Body weight 59.42 kg Gayla Fabyhholz WASH MILL OPERATOR Work Phone: [facility] 08-09-2024 13:30-0400 Diastolic blood pressure 78 mm[Hg] Gayla Aichholz WASH MILL OPERATOR Work Phone: [facility] 08-09-2024 13:30-0400 Heart rate 74 /min Gayla Aichholz WASH MILL OPERATOR Work Phone: [facility] 08-09-2024 13:30-0400 Respiratory rate 18 /min Gayla Aichholz WASH MILL OPERATOR Work Phone: [facility] 08-09-2024 13:30-0400 SaO2% (BldA) [Mass fraction] 99 % Gayla Fabyhholz WASH MILL OPERATOR Work Phone: [facility] 08-09-2024 13:30-0400 Systolic blood pressure 132 mm[Hg] Gayla Aichholz WASH MILL OPERATOR Work Phone: [facility] 04-04-2024 15:47-0500 Body mass index (BMI) [Ratio] 21.37 kg/m2 Gayla Fabyhholz WASH MILL OPERATOR Work Phone: [facility] 04-04-2024 15:47-0500 Body temperature 98.49 [degF] Gayla Fabyhholz WASH MILL OPERATOR Work Phone: [facility] 04-04-2024 15:47-0500 Body weight 60.06 kg Gayla Aichholz WASH MILL OPERATOR Work Phone: [facility] 04-04-2024 15:47-0500 Diastolic blood pressure 80 mm[Hg] Gayla Aichholz WASH MILL OPERATOR Work Phone: [facility] 04-04-2024 15:47-0500 Heart rate 85 /min Gayla Aichholz WASH MILL OPERATOR Work Phone: [facility] 04-04-2024 15:47-0500 Respiratory rate 18 /min Gayla Aichholz WASH MILL OPERATOR Work Phone: [facility] 04-04-2024 15:47-0500 SaO2% (BldA) [Mass fraction] 96 % Gayla Aichholz WASH MILL OPERATOR Work Phone: [facility] 04-04-2024 15:47-0500 Systolic blood pressure 124 mm[Hg] Gayla Aichholz WASH MILL OPERATOR Work Phone: [facility] 12-06-2023 10:35-0400 Body height 167.6 cm Gayla Aichholz WASH MILL OPERATOR Work Phone: [facility] 12-06-2023 10:35-0400 Body mass index (BMI) [Ratio] 21.21 kg/m2 Gayla Aichholz WASH MILL OPERATOR Work Phone: [facility] 12-06-2023 10:35-0400 Body temperature 98.29 [degF] Gayla Aichholz WASH MILL OPERATOR Work Phone: [facility] 12-06-2023 10:35-0400 Body weight 59.6 kg Gayla Aichholz WASH MILL OPERATOR Work Phone: [facility] 12-06-2023 10:35-0400 Diastolic blood pressure 78 mm[Hg] Gayla Aichholz WASH MILL OPERATOR Work Phone: [facility] 12-06-2023 10:35-0400 Heart rate 71 /min Gayla Aichholz WASH MILL OPERATOR Work Phone: [facility] 12-06-2023 10:35-0400 Respiratory rate 18 /min Gayla Aichholz WASH MILL OPERATOR Work Phone: [facility] 12-06-2023 10:35-0400 SaO2% (BldA) [Mass fraction] 100 % Gayla Aichholz WASH MILL OPERATOR Work Phone: [facility] 12-06-2023 10:35-0400 Systolic blood pressure 118 mm[Hg] Gayla Aichholz WASH MILL OPERATOR Work Phone: [facility] Healthcare Encounters Encounter Date Encounter Type Care Provider Facility Start: 10-16-2024 End: 10-16-2024 Refill Gayla Tamaraz WASH MILL OPERATOR Work Phone: [facility] Comment on above: Controlled type 2 di abetes mellitus without complication, without long-term current use of insulin (HCC); Degeneration of intervertebral disc of lumbar 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 Start: 08-17-2024 End: 08-17-2024 ambulatory Gayla Joyce Martinez BRAND ACTIVATION MANAGER-CHECKERER HAND Facility:[facility] Start: 08-09-2024 End: 08-09-2024 Bamboo flowsheet Gayla Michelle WASH MILL OPERATOR Work Phone: [facility] Start: 08-09-2024 End: 08-09-2024 Bamboo flowsheet Gayla Michelle WASH MILL OPERATOR Work Phone: [facility] Start: 08-09-2024 End: 08-09-2024 ambulatory GAYLA AICHHOLZ Not Available Start: 08-09-2024 End: 08-09-2024 Office outpatient visit 25 minutes Gayla Michelle WASH MILL OPERATOR Work Phone: [facility] Comment on above: Controlled type 2 di abetes mellitus without complication, without long-term current use of insulin (HCC) (Primary Dx); Centrilobular emphysema (HCC); Munoz's esophagus with esophagitis; Cigarette nicotine dependence without complication Start: 06-26-2024 End: 06-26-2024 Refill Gayla Aichholz WASH MILL OPERATOR Work Phone: [facility] Comment on above: Mixed hyperlipidemia (CMS/HCC); OAB (overactive bladder); Degeneration of intervertebral disc of lumbar 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 Start: 06-20-2024 End: 06-21-2024 Refill Gayla Aichholz WASH MILL OPERATOR Work Phone: [facility] Comment on above: Centrilobular emphys mathew (CMS/HCC) Start: 04-24-2024 End: 04-24-2024 Refill Gayla Aichholz WASH MILL OPERATOR Work Phone: [facility] Comment on above: Degeneration of inte rvertebral disc of lumbar 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; Munoz's esophagus with esophagitis Start: 04-20-2024 End: 04-20-2024 Clinisync Result Encounter Gayla Aichholz WASH MILL OPERATOR Work Phone: [facility] Unsolicited Start: 04-20-2024 End: 04-20-2024 Clinisync Result Encounter Gayla Aichholz WASH MILL OPERATOR Work Phone: [facility] Unsolicited Start: 04-18-2024 End: 04-18-2024 Refill Gayla Aichholz WASH MILL OPERATOR Work Phone: [facility] Comment on above: Controlled type 2 di abetes mellitus without complication, without long-term current use of insulin ([facility]) Start: 04-17-2024 End: 04-17-2024 Refill Gayla Aichholz WASH MILL OPERATOR Work Phone: [facility] Comment on above: OAB (overactive blad leif) (Primary Dx) Start: 04-13-2024 End: 04-13-2024 Clinisync Result Encounter Generic External Data Provider [facility] Unsolicited Start: 04-13-2024 End: 04-13-2024 Clinisync Result Encounter Generic External Data Provider [facility] External [facility] Unsolicited Start: 04-12-2024 End: 04-12-2024 Telephone encounter Gayla Tieshaholz WASH MILL OPERATOR Work Phone: [facility] Comment on above: Controlled type 2 di abetes mellitus without complication, without long-term current use of insulin (CMS/HCC) (Primary Dx) Start: 04-04-2024 End: 04-04-2024 Office outpatient visit 25 minutes Gayla Fabyhholz WASH MILL OPERATOR Work Phone: [facility] Comment [...] 04-04-2024 End: 04-04-2024 Bamboo flowsheet Gayla Aichholz WASH MILL OPERATOR Work Phone: [facility] Start: 04-04-2024 End: 04-04-2024 Bamboo flowsheet Gayla Aichholz WASH MILL OPERATOR Work Phone: [facility] Start: 03-28-2024 End: 03-28-2024 Refill Gayla Aichholz WASH MILL OPERATOR Work Phone: [facility] Comment on above: Centrilobular emphys mathew (CMS/HCC); Degeneration of intervertebral disc of lumbar 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 Start: 03-16-2024 End: 03-16-2024 ambulatory Gayla Joyce Aichholz BRAND ACTIVATION MANAGER-CHECKERER HAND Facility:[facility] Start: 02-28-2024 End: 02-28-2024 ambulatory Gayla Joyce Aichholz BRAND ACTIVATION MANAGER-CHECKERER HAND Facility:[facility] Start: 01-27-2024 End: 01-27-2024 Refill Gayla Aichholz WASH MILL OPERATOR Work Phone: [facility] Comment on above: Controlled type 2 di abetes mellitus without complication, without long-term current use of insulin (CMS/HCC) (Primary Dx) Start: 01-25-2024 End: 01-25-2024 Refill Gayla Aichholz WASH MILL OPERATOR Work Phone: [facility] Comment on above: Degeneration of inte rvertebral disc of lumbar 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 Start: 01-14-2024 End: 01-14-2024 ambulatory [facility] Start: 12-28-2023 End: 12-28-2023 Refill Gayla Martinez WASH MILL OPERATOR Work Phone: [facility] Comment on above: Degeneration of inte rvertebral disc of lumbar 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 (Primary Dx) Start: 12-22-2023 End: 12-22-2023 Refill Gayla Martinez WASH MILL OPERATOR Work Phone: [facility] Comment on above: Centrilobular emphys mathew ([facility]/HCC) Start: 12-21-2023 End: 12-21-2023 Refill Gaylaflavio Martinez WASH MILL OPERATOR Work Phone: [facility] Comment on above: ETD (Eustachian tube dysfunction), left; Mixed hyperlipidemia ([facility]); Centrilobular emphysema ([facility]); Controlled type 2 diabetes mellitus without complication, without long-term current use of insulin ([facility]); Munoz's esophagus with esophagitis Start: 12-06-2023 End: 12-06-2023 Bamboo flowsheet Gayla Martinez WASH MILL OPERATOR Work Phone: [facility] Start: 12-06-2023 End: 12-10-2023 Bamboo flowsheet Gayla Martinez WASH MILL OPERATOR Work Phone: [facility] Start: 12-06-2023 End: 12-10-2023 Clinisync Result Encounter Gayla Martinez NP Work Phone: [facility] External Department Unsolicited Start: 12-06-2023 End: 12-06-2023 Patient encounter procedure Gayla Martinez WASH MILL OPERATOR Work Phone: [facility] Healthcare Start: 12-06-2023 End: 12-06-2023 Periodic preventive med est patient 40-64yrs Gayla Martinez WASH MILL OPERATOR Work Phone: [facility] Comment on above: Encounter for well w stephany exam with routine gynecological exam (Primary Dx); Encounter for screening mammogram for malignant neoplasm of breast; Screening for cervical cancer; Needs flu shot Start: 12-06-2023 End: 12-06-2023 ambulatory GAYLA MICHELLE Not Available Start: 11-22-2023 End: 11-22-2023 ambulatory Gayla Joyce Martinez BRAND ACTIVATION MANAGER-CHECKERER HAND Facility:[facility] Start: 10-26-2023 End: 10-26-2023 ambulatory Gayla Joyce Martinez BRAND ACTIVATION MANAGER-CHECKERER HAND Facility:[facility] Start: 09-27-2023 End: 09-27-2023 ambulatory Lara Mar MD Facility:[facility] Start: 08-30-2023 End: 08-30-2023 ambulatory Lara Mar MD Facility:[facility] Start: 04-08-2023 Clinisync Result Encounter Paola muniz Michelle WASH MILL OPERATOR Work Phone: [facility] Unsolicited Start: 04-08-2023 Clinisync Result Encounter Paola muniz Michelle WASH MILL OPERATOR Work Phone: [facility] Unsolicited Start: 04-07-2023 Refill Gayla Michelle WASH MILL OPERATOR Work Phone: [facility] Comment on above: COPD with exacerbati on (CMS/HCC) (Primary Dx) Start: 01-19-2023 End: 01-19-2023 ambulatory DANTE [facility] Start: 06-17-2022 End: 06-18-2022 ambulatory INA JOHNSON Facility:[facility]1 Start: 05-08-2022 End: 05-09-2022 ambulatory PRITIBrett RAZOHOTHROBE Facility:[facility]1 Start: 01-05-2022 End: 01-06-2022 ambulatory MOHAMAD ALGHOTHANI Facility:[facility] Start: 11-05-2021 End: 11-06-2021 ambulatory CHECKERER HAND GAYLA MARTINEZ Facility:[facility]1 Start: 10-16-2021 End: 10-17-2021 ambulatory MOHAMAD DANNIHOTHANI Facility:[facility]1 Start: 09-16-2021 End: 09-17-2021 ambulatory CHECKERER HAND GAYLA MARTINEZ Facility:[facility]1 Start: 08-04-2021 End: 08-05-2021 ambulatory CHECKERER HAND GAYLA MARTINEZ Facility:[facility]1 Procedures Date Procedure Procedure Detail Performing Clinician Start: 08-09-2024 Hemoglobin glycosylated a1c Gayla Martinez WASH MILL OPERATOR Work Phone: Start: 04-20-2024 MM TOMOSYNTHESIS SCR EENING BI Gayla Martinez WASH MILL OPERATOR Work Phone: Start: 04-20-2024 CT LUNG SCREENING LOW DOSE Gayla Martinez WASH MILL OPERATOR Work Phone: Start: 04-20-2024 Mammography Gayla terrellhamilton WASH MILL OPERATOR Work Phone: Start: 04-13-2024 XR Thoracic and lumb ar spine AP Views for scoliosis W standing and W right bending and W left bending and WO bending Generic External Data Provider Start: 04-04-2024 Hemoglobin glycosylated a1c Gayla Mratinez WASH MILL OPERATOR Work Phone: Start: 03-22-2024 Mammography Gayla terrellhamilton WASH MILL OPERATOR Work Phone: Start: 12-06-2023 IGP,APTIMA HPV,AGE GDLN Gayla Martinez WASH MILL OPERATOR Work Phone: Start: 12-06-2023 Microscopic observat ion [Identifier] in Cervix by Cyto stain Gayla Martinez WASH MILL OPERATOR Work Phone: Start: 04-08-2023 H INFLUENZA A AND B AG Gayla Motleydouglas WASH MILL OPERATOR Work Phone: Start: 12-03-2022 Mammography Gayla terrellhamilton WASH MILL OPERATOR Work Phone: Start: 09-08-2021 Colonoscopy Gayla Ruiz justus WASH MILL OPERATOR Work Phone: Start: 04-20-2013 Colonoscopy Gayla Ruiz justus WASH MILL OPERATOR Work Phone: Plan of Treatment Date Care Activity Detail Author Start: 12-05-2026 Screening for malign ant neoplasm of cervix [facility] Start: 09-08-2026 Screening for malign ant neoplasm of colon [facility] Start: 07-20-2025 Glaucoma screening Diabetes: R etinopathy Screening [facility] Start: 04-20-2025 Screening for malign ant neoplasm of breast Mammogram [facility] Start: 03-22-2025 Screening for malign ant neoplasm of breast Mammogram [facility] Start: 02-08-2025 Hemoglobin A1c measurement Diabetes: Hemoglobin A1C [facility] Start: 11-09-2024 End: 11-09-2024 Patient encounter procedure 11/09/2024 1:40 PM EDT Office Visit [facility] [address] [place] [address] Gayla Martinez, WASH MILL OPERATOR [address] [place] [address] [facility] Start: 10-23-2024 Influenza vaccination Influenza Vacc ine (#1) [facility] Start: 10-02-2024 Hemoglobin A1c measurement Diabetes: Hemoglobin A1C [facility] Start: 08-09-2024 End: 08-09-2025 CBC W Auto Differential panel - Blood CBC and differential Lab Routine Centrilobular emphysema (HCC) Munoz's esophagus with esophagitis Expected: 08/09/2024 (Approximate), Expires: 08/09/2025 [facility] Work Phone: Comment on above: Expected: 08/09/2024 (Approximate), Expires: 08/09/2025 Start: 08-09-2024 End: 08-09-2025 Comprehensive metabolic 2000 panel - Serum or Plasma Comprehensive metabolic panel Lab Routine Controlled type 2 diabetes mellitus without complication, without long-term current use of insulin (HCC) Expected: 08/09/2024 (Approximate), Expires: 08/09/2025 [facility] Comment on above: Expected: 08/09/2024 (Approximate), Expires: 08/09/2025 Start: 08-09-2024 End: 08-09-2025 Lipid 1996 panel - Serum or Plasma Lipid panel Lab Routine Controlled type 2 diabetes mellitus without complication, without long-term current use of insulin (HCC) Expected: 08/09/2024 (Approximate), Expires: 08/09/2025 [facility] Comment on above: Expected: 08/09/2024 (Approximate), Expires: 08/09/2025 Start: 08-09-2024 End: 08-09-2025 Microalbumin/Creatinine panel in random Urine Microalbumin / creatinine, urine ratio Lab Routine Controlled type 2 diabetes mellitus without complication, without long-term current use of insulin (HCC) Expected: 08/09/2024 (Approximate), Expires: 08/09/2025 [facility] Comment on above: Expected: 08/09/2024 (Approximate), Expires: 08/09/2025 Start: 08-09-2024 End: 08-09-2025 Urinalysis complete panel - Urine Urinalysis with reflex microscopic (clean catch) Lab Routine Controlled type 2 diabetes mellitus without complication, without long-term current use of insulin (HCC) Expected: 08/09/2024 (Approximate), Expires: 08/09/2025 [facility] Comment on above: Expected: 08/09/2024 (Approximate), Expires: 08/09/2025 Start: 08-09-2024 End: 08-09-2024 Patient encounter procedure 08/09/2024 1:20 PM EDT Office Visit [facility] [address] [place] [address] Gayla Martinez, ROSI [address] [place] [address] [facility] Start: 07-25-2024 Urine screening for protein Diabetes: Urine Protein Screening [facility] Start: 07-03-2024 End: 07-03-2024 Patient encounter procedure 07/03/2024 2:00 PM EDT Office Visit [facility] [address] [place] [address] Gayla Martinez WASH MILL OPERATOR [address] [place] [address] [facility] Start: 04-04-2024 End: 04-04-2024 Patient encounter procedure 04/04/2024 3:40 PM EST Office Visit [facility] [address] [place] [address] Gayla Martinez, WASH MILL OPERATOR [address] [place] [id number] Centrilobular emphysema (CMS/HCC) (Primary Dx); Other thrombotic microangiopathy (CMS/HCC); Munoz's esophagus with esophagitis; Degeneration of intervertebral disc of lumbar 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; Controlled type 2 diabetes mellitus without complication, without long-term current use of insulin (CMS/HCC); Mixed hyperlipidemia (CMS/HCC) [facility] Comment on above: Centrilobular emphys mathew (CMS/HCC) [...] without complication Expected: 04/04/2024 (Approximate), Expires: 04/04/2025 [facility] Work Phone: Comment on above: Expected: 04/04/2024 (Approximate), Expires: 04/04/2025 Start: 03-30-2024 End: 03-30-2024 Patient encounter procedure 03/30/2024 9:20 AM EST Office Visit [facility] [address] [place] [address] Gayla Martinez, ROSI [address] [place] [id number] [facility] Start: 03-06-2024 End: 03-06-2024 Patient encounter procedure 03/06/2024 9:20 AM EST Office Visit [facility] [address] [place] [address] Gayla Martinez, WASH MILL OPERATOR [address] [place] [phone] [facility] Start: 01-25-2024 Hemoglobin A1c measurement Diabetes: Hemoglobin A1C [facility] Start: 12-06-2023 End: 2025 MG Breast - bilateral Screening Bilateral screening mammogram Imaging Routine Encounter for screening mammogram for malignant neoplasm of breast Expected: 12/06/2023 (Approximate), Expires: 2025 [facility] Work Phone: Comment on above: Expected: 12/06/2023 (Approximate), Expires: 2025 Start: 12-06-2023 End: 12-05-2024 THIN PREP TIS PAP AND HR HPV DNA THIN PREP TIS PAP AND HR HPV DNA Pathology and Cytology Routine Encounter for well woman exam with routine gynecological exam Expected: 12/06/2023 (Approximate), Expires: 12/05/2024 [facility] Comment on above: Expected: 12/06/2023 (Approximate), Expires: 12/05/2024 Start: 12-06-2023 End: 12-06-2023 Patient encounter procedure 12/06/2023 10:30 AM EDT Procedure Visit [facility] [address] [place] [address] Gayla Martinez, ROSI [address] [place] [id number] Encounter for screening mammogram for malignant neoplasm of breast (Primary Dx) [facility] Comment on above: Encounter for screen ing mammogram for malignant neoplasm of breast (Primary Dx) Start: 12-04-2023 Screening for malign ant neoplasm of breast Mammogram [facility] Start: 10-24-2023 Influenza vaccination Influenza Vacc ine (#1) [facility] Start: 08-22-2023 Influenza vaccination Influenza Vacc ine (#1) [facility] Comment on above: Postponed from 10/23 (Other Medical Reasons) Start: 07-24-2023 Screening for malign ant neoplasm of cervix Cervical Cancer Screening [facility] Comment on above: Postponed from 02/03 (Other Medical Reasons) Start: 05-30-2023 Urine screening for protein Diabetes: Urine Protein Screening [facility] Start: 04-26-2023 Glaucoma screening Diabetes: R etinopathy Screening [facility] Comment on above: Postponed from 02/03 (Other Medical Reasons) Start: 04-26-2023 End: 04-26-2023 Patient encounter procedure 04/26/2023 9:00 AM EST Office Visit [facility] [address] [place] [address] Gayla Martinez NP [address] [place] [id number] [facility] Start: 03-05-2023 Hemoglobin A1c measurement Diabetes: Hemoglobin A1C [facility] Start: 02-03-1990 Screening for malign ant neoplasm of cervix [facility] Start: 02-03-1981 Screening for malign ant neoplasm of cervix Pap Smear [facility] Start: 1960 Screening for malign ant neoplasm of colon [facility] Start: 1960 Screening for malign ant neoplasm of lung Lung Cancer Screening Shared Decision Making [facility] Immunizations Immunization Date Immunization Notes Care Provider Fa [facility] 12-06-2023 Influenza, injectabl e, Madin Rosemary Canine Kidney, preservative free, quadrivalent Gayla Aichholz WASH MILL OPERATOR Work Phone: [facility] 12-06-2023 influenza virus vacc ine, unspecified formulation Gayla Aichholz WASH MILL OPERATOR Work Phone: [facility] 07-30-2023 zoster vaccine recombinant L tammy Aichholz WASH MILL OPERATOR Work Phone: [facility] 08-12-2022 zoster vaccine recombinant L tammy Aichholz WASH MILL OPERATOR Work Phone: [facility] 01-06-2022 Influenza, injectabl e, Madin Rosemary Canine Kidney, preservative free, quadrivalent Gayla Aichholz WASH MILL OPERATOR Work Phone: [facility] 01-06-2022 Pneumococcal Conjuga te PCV 20 Gayla Martinez WASH MILL OPERATOR Work Phone: [facility] 01-06-2022 influenza virus vacc ine, unspecified formulation Gayla Martinez WASH MILL OPERATOR Work Phone: [facility] 11-20-2013 influenza virus vacc ine, whole virus Gayla Mcdonaldz WASH MILL OPERATOR Work Phone: [facility] 03-06-2013 influenza virus vacc ine, whole virus Gayla Martinez WASH MILL OPERATOR Work Phone: [facility] 01-22-2012 pneumococcal polysaccharide vaccine, 23 valent Gayla Martinez WASH MILL OPERATOR Work Phone: [facility] Healthcare Payers Date Payer Category Payer Medicaid [employer] [id number] 2022-Present [address] [place] [address] [id number] 2022 Private Health Insurance [id number] 1960 Unknown [id number] 2.16.840.1.822555.3.579.2. 593 1960 Unknown [id number] 2.16.840.1.605204.3.579.2. 593 1960 Unknown [id number] 2.16.840.1.479711.3.579.2. 593 1960 Unknown [id number] 2.16.840.1.466078.3.579.2. 593 1960 Unknown [id number] 2.16.840.1.737039.3.579.2. 593 1960 Unknown [id number] 2.16.840.1.754545.3.579.2. 593 1960 Unknown [id number] 2.16.840.1.775509.3.579.2. 593 1960 Unknown [id number] 2.16.840.1.582876.3.579.2. 1259 1960 Unknown [id number] 2.16.840.1.147976.3.579.2. 9 1960 Unknown [id number] 2.16.840.1.276339.3.579.2. 1259 1960 Unknown [id number] 2.16.840.1.395064.3.579.2. 196 1960 Unknown [id number] 2.16.840.1.077355.3.579.2. 196 1960 Unknown [id number] 2.16.840.1.867579.3.579.2. 196 1960 Unknown [id number] 2.16.840.1.890578.3.579.2. 196 1960 Unknown [id number] 2.16.840.1.438411.3.579.2. 196 1960 Unknown [id number] 2.16.840.1.300050.3.579.2. 196 1960 Unknown [id number] 2.16.840.1.236613.3.579.2. 196 1960 Unknown [id number] 2.16.840.1.752159.3.579.2. 196 1959 Unknown [id number] 1959 Unknown [id number] Social History Date Type Detail Facility Start: 01-25-2023 Tobacco smoking status WAIS Smokes t obacco daily [facility] History of tobacco use Cigarette Smoker [facility] Start: 01-25-2023 End: 04-19-2023 Cigarettes smoked current (pack per day) - Reported 0.5 [facility] Start: 01-25-2023 Tobacco use and exposure Smoke less tobacco non-user [facility] Start: 02-08-2023 End: 08-09-2024 Alcohol intake Lifetime non-drinker (finding) [facility] Start: 01-25-2023 End: 04-19-2023 Tobacco use panel [facility] Start: 1960 Sex Assigned At Not on file [facility] Do you belong to any clubs or organizations such as adventism groups, unions, fraternal or athletic groups, or [...] Equipment Origin al Text Equipment Identifier Dates [id number] End: 01-27-2024 Once a daily Use as instructed [id number] Start: 05-03-2023 End: 05-02-2024 1 each by Other route Daily Use as instructed [id number] Start: 01-27-2024 End: 05-06-2024 Clinical Notes 01-19-2023 to 08-09-2024 Gayla Martinez NP - 08/09/2024 1:58 PM JALIL MADERA - 08/09/2024 1:20 PM Joseph Martinez NP - 08/09/2024 1:20 PM Joseph Martinez NP - 08/09/2024 7:35 AM EDT Note Date & Type Note Facility 08-09-2024 History of Presen t illness Narrative Associated Problem(s): Cigarette nicotine dependence without complication The patient has been advised of the risks of continued smoking: stroke, AL, all forms of cancer, lung disease, and . Options for quitting smoking include: cold turkey, hypnosis, acupuncture, nicotine replacement meds (gum, lozenges, and patches), Buproprion, and Varenicline. At this time pt is encouraged to evaluate their goals for wanting to quit smoking, and reach out to provider when ready to start this process Upcoming follow up appt on the with her neuro surgeon Pt states that periodically she coughs up a lot of phlegm Insurance does not cover trelegy Pt needs a new glucose meter and supplies her meter no longer works. Pt can not recall last time she checked sugars Images from the original note were not included. tSephan López is a 64 y.o. female presents with chief complaint of Diabetes HPI: Lumbar: good days and bad days, no cauda, neurosurgeon 1-2 times yearly COPD: no wheeze, some cough, clear mucus, no blood, insurance not covering Trelegy?? GERD: no sxs, stopped her PPI Diabetes She presents for her follow-up diabetic visit. She has type 2 diabetes mellitus. Her disease course has been stable. There are no hypoglycemic associated symptoms. Pertinent negatives for hypoglycemia include no dizziness, headaches, nervousness/anxiousness, seizures, sleepiness or tremors. Pertinent negatives for diabetes include no chest pain, no polydipsia, no polyphagia and no polyuria. There are no hypoglycemic complications. Symptoms are stable. There are no diabetic complications. Pertinent negatives for diabetic complications include no heart disease or PVD. Risk factors for coronary artery disease include diabetes mellitus, dyslipidemia, hypertension and sedentary lifestyle. Current diabetic treatment includes oral agent (monotherapy). She is compliant with treatment all of the time. An CONSTANZA inhibitor/angiotensin II receptor radha is being taken. She does not see a wireless field technician.Eye exam is current. SUBJECTIVE: MEDICATIONS: Current Outpatient Medications Medication Instructions albuterol HFA 90 mcg/act inhaler 2 puffs, Inhalation, Every 6 hours PRN ASPIRIN 81 PO 81 mg, Oral, Daily atorvastatin (LIPITOR) 20 mg, Oral, Nightly Blood Glucose Monitoring Suppl (True Metrix Meter) w/Device kit 1 each, Does not apply, Daily fluticasone (Flonase) 50 MCG/ACT nasal spray 2 sprays, Each Nostril, Daily, Shake gently. Before first use, prime pump. After use, clean tip and replace cap. Piispkdycay-Fbsqdmrfi-Wtmcgx (Trelegy Ellipta) 100-62.5-25 MCG/ACT aerosol powder 1 puff, Inhalation, Daily, Rinse mouth after use Lancets misc 1 Device, Daily PRN lisinopril 10 mg, Daily loratadine (CLARITIN) 10 mg, Oral, Daily meloxicam (MOBIC) 15 mg, Oral, Daily metFORMIN (GLUCOPHAGE) 500 mg, Oral, Daily with breakfast omeprazole (PRILOSEC) 40 mg, Oral, Daily oxybutynin XL (DITROPAN-XL) 5 mg, Oral, Daily, Do not crush, chew, or split. tiZANidine (Zanaflex) 4 MG tablet 1 tablet, Every 12 hours PRN traMADol (ULTRAM) 50 mg, Every 12 hours PRN ALLERGIES: Allergies Allergen Reactions Pregabalin Hallucinations REVIEW OF SYMPTOMS: Review of Systems Constitutional: Negative for appetite change, chills and fever. HENT: Negative for congestion, ear pain and sore throat. Eyes: Negative for pain, discharge, redness and visual disturbance. Respiratory: Positive for cough. Negative for shortness of breath and wheezing. Cardiovascular: Negative for chest pain, palpitations and leg swelling. Gastrointestinal: Negative for abdominal pain, blood in stool, constipation, diarrhea, nausea and vomiting. Genitourinary: Negative for difficulty urinating, dysuria and frequency. Musculoskeletal: Positive for back pain. Negative for arthralgias, joint swelling and myalgias. Skin: Negative for rash and wound. Neurological: Negative for dizziness, tremors, seizures, syncope and headaches. Psychiatric/Behavioral: Negative for behavioral problems, self-injury and suicidal ideas. The patient is not nervous/anxious. Hematological: Does not bruise/bleed easily. Endocrine: Negative for polydipsia, polyphagia and polyuria. Allergic/Immunologic: Negative for environmental allergies and food allergies. 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 OBJECTIVE: Visit Vitals BP 132/78 (BP Location: Left arm, Patient Position: Sitting, BP Cuff Size: Adult long) Pulse 74 Temp 98.3 F (Temporal) Resp 18 Wt 131 lb SpO2 99% BMI 21.14 kg/m Smoking Status Every Day BSA 1.66 m Physical Exam Vitals and nursing note [...] heard. Pulmonary: Effort: Pulmonary effort is normal. Breath sounds: Normal breath sounds. No wheezing or rhonchi. Abdominal: General: Bowel sounds are normal. There is no distension. Palpations: Abdomen is soft. There is no mass. Tenderness: There is no abdominal tenderness. Musculoskeletal: Cervical back: Normal range of motion and neck supple. Right lower leg: No edema. Left lower leg: No edema. Comments: Kyphotic, decreased ROM Lymphadenopathy: Cervical: No cervical adenopathy. Skin: General: [...] file. Problem List Items Addressed This Visit Controlled type 2 diabetes mellitus without complication, without long-term current use of insulin ([facility]) - Primary Check blood sugars daily, notify if <70 [...] sugars. Current meds: statin, constanza, metformin A1c: 5.9% 08/09/24, 6.1% 04/04/24 Relevant Medications metFORMIN (Glucophage) 500 MG tablet Other Relevant Orders POCT glycosylated hemoglobin (Hb A1C) docked device (Completed) Comprehensive metabolic panel Lipid panel Urinalysis with reflex microscopic (clean catch) Microalbumin / creatinine, urine ratio Munoz's esophagus with esophagitis Recommendations: freq small meals, nothing to eat or drink at least 2 hours prior to bed, limit caffeine, alcohol, as well as spicy foods Meds to limit or avoid if possible: NSAIDS Elevate HOB if possible Continue with omeprazole Next scope due 2026 (explained reason why to take PPI, she will restart) Relevant Medications omeprazole (PriLOSEC) [address] capsule Other Relevant Orders CBC and differential COPD with emphysema (HCC) Current meds: trelegy and prn albuterol Looks like utd approval for trelegy Relevant Medications albuterol HFA 90 mcg/act inhaler Cesnwytseny-Skxnbycja-Bqdaoj (Trelegy Ellipta) 100-62.5-25 MCG/ACT aerosol powder Other Relevant Orders CBC and differential Cigarette nicotine dependence without complication The patient has been advised of the risks of continued smoking: stroke, AL, all forms of cancer, lung disease, and . Options for quitting smoking include: cold turkey, hypnosis, acupuncture, nicotine replacement meds (gum, lozenges, and patches), Buproprion, and Varenicline. At this time pt is encouraged to evaluate their goals for wanting to quit smoking, and reach out to provider when ready to start this process Associated Problem(s): Controlled type 2 diabetes mellitus without complication, without long-term current use of insulin (HCC) Check blood sugars daily, notify if <70 [...] sugars. Current meds: statin, constanza, metformin A1c: 5.9% 08/09/24, 6.1% 04/04/24 Associated Problem(s): Munoz's esophagus with esophagitis Recommendations: freq small meals, nothing to eat or drink at least 2 hours prior to bed, limit caffeine, alcohol, as well as spicy foods Meds to limit or avoid if possible: NSAIDS Elevate HOB if possible Continue with omeprazole Next scope due 2026 (explained reason why to take PPI, she will restart) Associated Problem(s): COPD with emphysema (HCC) Current meds: trelegy and prn albuterol Looks like utd approval for trelegy documented in this encounter [facility] 04-12-2024 Telephone encounter Note Please contact pt, hematology dr bruce said ok for baby aspirin 81mg. Does she want me to send a script in to pharmacy, or dose she want to by over the counter baby asa 81mg daily? [place] [facility] 04-12-2024 Miscellaneous Notes Please contact pt, hematology dr bruce said ok for baby aspirin 81mg. Does she want me to send a script in to pharmacy, or dose she want to by over the counter baby asa 81mg daily? [place] documented in this encounter [facility] 04-12-2024 Telephone encounter Note Please tell pt that hematology dr bruce said baby aspirin 81mg is fine. Does she want a script sent in or does she want to just buy over the counter and take daily? LA [facility] 04-12-2024 Miscellaneous Notes Please tell pt that hematology dr bruce said baby aspirin 81mg is fine. Does she want a script sent in or does she want to just buy over the counter and take daily? [place] documented in this encounter [facility] 04-04-2024 History of Presen t illness Narrative Associated Problem(s): Cigarette nicotine dependence without complication The patient has been advised of the risks of continued smoking: stroke, AL, all forms of cancer, lung disease, and [...] being taken. She does not see a wireless field technician.Eye exam is current. Back Pain This is [...] After use, clean tip and replace cap. Knmlimsurnl-Kdigeecom-Uxenht (Trelegy Ellipta) 100-62.5-25 MCG/ACT aerosol powder 1 [...] Munoz's esophagus with esophagitis 03/16/2023 Centrilobular emphysema ([facility]) 01/25/2023 COPD with emphysema ([facility] 04/26/2023 COPD with exacerbation ([facility]) 04/07/2023 DDD (degenerative disc disease), lumbar Family history of coronary arteriosclerosis 04/26/2023 Hyperlipidemia ([facility]) 03/16/2023 Idiopathic thrombotic thrombocytopenic purpura ([facility]) 04/26/2023 Other chronic pain 02/08/2023 Other insomnia [...] foraminal stenosis as well OTHER SURGICAL HISTORY 2012 fundoscopic exam OTHER SURGICAL HISTORY 09/19/2021 Medial [...] complication, without long-term current use of insulin ([facility]) Check blood sugars daily, notify if <70 [...] disease), lumbar Continue with pain mgmt Hyperlipidemia ([facility]) Continue with statin Check labs yearly and prn dose changes Munoz's esophagus with esophagitis Recommendations: freq small meals, nothing to eat or drink at least 2 hours prior to bed, limit caffeine, alcohol, as well as spicy foods Meds to limit or avoid if possible: NSAIDS Elevate HOB if possible Continue with omeprazole Next scope due 2026 COPD with emphysema ([facility]) - Primary Current meds: trelegy Will order rescue inhaler prn Relevant Medications albuterol HFA 90 mcg/act inhaler 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 Options for quitting smoking include: cold turkey, hypnosis, acupuncture, nicotine replacement meds (gum, lozenges, and patches), Buproprion, and Varenicline. At this time pt is encouraged to evaluate their goals for wanting to quit smoking, and reach out to provider when ready to start this process Associated Problem(s): Hyperlipidemia ([facility]) Continue with statin Check labs yearly and prn dose changes Associated Problem(s): Controlled type 2 diabetes mellitus without complication, without long-term current use of insulin ([facility]) Check blood sugars daily, notify if <70 [...] HOB if possible Continue with omeprazole Next 2026 Associated Problem(s): Other thrombotic microangiopathy (CMS/HCC) Has seen hematology for this Will have to see if ok to have ASA for DM Associated Problem(s): COPD with emphysema (CMS/HCC) Current meds: trelegy Will order rescue inhaler prn documented in this encounter [facility] 01-14-2024 Note Cardiovascular Medic [facility] SUBJECTIVE HPI Stephan López is a 63 [...] mouth in the morning., Disp: , Rfl: Trelemarin Ellipta 100-62.5-25 mcg [...] heart (more content not included)... [facility] 12-06-2023 History of Presen t illness Narrative Pt is still going to [...] After use, clean tip and replace cap. Lhopptwautd-Xphhxmndd-Ojgvai (Trelegy Ellipta) 100-62.5-25 MCG/ACT aerosol powder 1 [...] Munoz's esophagus with esophagitis 03/16/2023 Centrilobular emphysema ([facility]) 01/25/2023 COPD with emphysema ([facility]) 04/26/2023 COPD with exacerbation ([facility]) 04/07/2023 DDD (degenerative disc disease), lumbar Family history of coronary arteriosclerosis 04/26/2023 Hyperlipidemia ([facility]) 03/16/2023 Idiopathic thrombotic thrombocytopenic purpura ([facility]) 04/26/2023 Other chronic pain 02/08/2023 Other insomnia [...] nursing note reviewed. Exam conducted with a signaling project engineer present. Constitutional: General: She is not in [...] Relevant Orders Flu vaccine, MDCK, quadrivalent, PF ([id number]) (Flucelvax single dose syringe) Other Visit Diagnoses Screening for cervical cancer documented in this encounter [facility] 01-19-2023 Note Patient here for 6 [...] systems reviewed and are negative. [facility] 01-19-2023 Note Cardiovascular Medic [facility] SUBJECTIVE Chief Complaint Patient presents with Follow-up Hypertension Stephan López is a 62 y.o. female here for follow-up. HPI PMHx: HTN, pericardial effusion, HLD She denies any cardiac concerns today. She has back problems. She is 5 months s/p surgery and she is still recovering. She is following with pain management at [facility]. She is not currently checking her [...] Hand NP [facility]TP Cardiovascular Medicine [facility] [place] Evaluation note Diagnosis COPD with exacerbation (CMS/HCC)- [...] inoculation against influenza documented in this encounter [facility]* Diagnosis Controlled type 2 [...] esophagitis Munoz's esophagus documented in this encounter [facility]* Diagnosis Controlled type 2 [...] Centrilobular emphysema (CMS/HCC) documented in this encounter [facility]* Diagnosis Controlled type [...] extremity pain- Primary documented in this encounter [facility] note* Diagnosis Controlled type [...] lower extremity pain documented in [facility] [...] lower extremity pain documented in this [facility]* [...] dependence without complication documented in this encounter [facility]* Diagnosis Controlled type [...] lung cancer Cigarette nicotine dependence without complication Controlled type 2 diabetes mellitus without complication, without long-term current use of insulin (CMS/HCC)- Primary documented in this encounter [facility] note* Diagnosis Controlled type [...] lung cancer Cigarette nicotine dependence without complication OAB (overactive bladder)- Primary documented in this encounter [facility]* Diagnosis Controlled type [...] lung cancer Cigarette nicotine dependence without complication Controlled type 2 diabetes mellitus without complication, without long-term current use of insulin (CMS/HCC) documented in this encounter [facility]* Diagnosis Controlled type 2 [...] lung cancer Cigarette nicotine dependence without complication Degeneration of intervertebral disc of lumbar 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 Munoz's esophagus with esophagitis Munoz's esophagus documented in this encounter [facility]* Diagnosis Controlled type 2 diabetes mellitus without complication, without long-term current use of insulin- Primary DDD (degenerative disc disease), lumbar Degeneration of lumbar or lumbosacral intervertebral disc Centrilobular emphysema (CMS/HCC) Tobacco dependence syndrome Tobacco use disorder Controlled type 2 diabetes mellitus without complication, without long-term current use of insulin- Primary Munoz's esophagus with esophagitis Munoz's esophagus Tobacco dependence syndrome Tobacco use disorder Mixed hyperlipidemia (CMS/HCC) Mixed hyperlipidemia Centrilobular emphysema (CMS/HCC) Other chronic pain Other insomnia Chronic constipation- Primary Unspecified constipation Mixed hyperlipidemia (CMS/HCC) Mixed hyperlipidemia Controlled type 2 diabetes mellitus without complication, without long-term current use of insulin DDD (degenerative disc disease), lumbar Degeneration of lumbar or lumbosacral intervertebral disc ETD (Eustachian tube dysfunction), left Controlled type 2 diabetes mellitus without complication, without long-term current use of insulin- Primary Other thrombotic microangiopathy Centrilobular emphysema (CMS/HCC) Munoz's esophagus with esophagitis Munoz's esophagus Degeneration of intervertebral disc of lumbar 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 Mixed hyperlipidemia (CMS/HCC) Mixed hyperlipidemia Screening for lung cancer Cigarette nicotine dependence without complication Centrilobular emphysema (CMS/HCC) documented in this encounter [facility] note* Diagnosis Controlled type 2 diabetes mellitus without complication, without long-term current use of insulin- Primary DDD (degenerative disc disease), lumbar Degeneration of lumbar or lumbosacral intervertebral disc Centrilobular emphysema (CMS/HCC) Tobacco dependence syndrome Tobacco use disorder Controlled type 2 diabetes mellitus without complication, without long-term current use of insulin- Primary Munoz's esophagus with esophagitis Munoz's esophagus Tobacco dependence syndrome Tobacco use disorder Mixed hyperlipidemia (CMS/HCC) Mixed hyperlipidemia Centrilobular emphysema (CMS/HCC) Other chronic pain Other insomnia Chronic constipation- Primary Unspecified constipation Mixed hyperlipidemia (CMS/HCC) Mixed hyperlipidemia Controlled type 2 diabetes mellitus without complication, without long-term current use of insulin DDD (degenerative disc disease), lumbar Degeneration of lumbar or lumbosacral intervertebral disc ETD (Eustachian tube dysfunction), left Controlled type 2 diabetes mellitus without complication, without long-term current use of insulin- Primary Other thrombotic microangiopathy Centrilobular emphysema (CMS/HCC) Munoz's esophagus with esophagitis Munoz's esophagus Degeneration of intervertebral disc of lumbar 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 Mixed hyperlipidemia (CMS/HCC) Mixed hyperlipidemia Screening for lung cancer Cigarette nicotine dependence without complication Centrilobular emphysema (CMS/HCC) documented in this encounter [facility]* Diagnosis Controlled type 2 diabetes mellitus without complication, without long-term current use of insulin- Primary DDD (degenerative disc disease), lumbar Degeneration of lumbar or lumbosacral intervertebral disc Centrilobular emphysema (CMS/HCC) Tobacco dependence syndrome Tobacco use disorder Controlled type 2 diabetes mellitus without complication, without long-term current use of insulin- Primary Munoz's esophagus with esophagitis Munoz's esophagus Tobacco dependence syndrome Tobacco use disorder Mixed hyperlipidemia (CMS/HCC) Mixed hyperlipidemia Centrilobular emphysema (CMS/HCC) Other chronic pain Other insomnia Chronic constipation- Primary Unspecified constipation Mixed hyperlipidemia (CMS/HCC) Mixed hyperlipidemia Controlled type 2 diabetes mellitus without complication, without long-term current use of insulin DDD (degenerative disc disease), lumbar Degeneration of lumbar or lumbosacral intervertebral disc ETD (Eustachian tube dysfunction), left Controlled type 2 diabetes mellitus without complication, without long-term current use of insulin- Primary Other thrombotic microangiopathy Centrilobular emphysema (CMS/HCC) Munoz's esophagus with esophagitis Munoz's esophagus Degeneration of intervertebral disc of lumbar 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 Mixed hyperlipidemia (CMS/HCC) Mixed hyperlipidemia Screening for lung cancer Cigarette nicotine dependence without complication Mixed hyperlipidemia (CMS/HCC) Mixed hyperlipidemia OAB (overactive bladder) Degeneration of intervertebral disc of lumbar 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 documented in this encounter [facility] note* Diagnosis Controlled type 2 diabetes mellitus without complication, without long-term current use of insulin (HCC)- Primary DDD (degenerative disc disease), lumbar Degeneration of lumbar or lumbosacral intervertebral disc Centrilobular emphysema (HCC) Tobacco dependence syndrome Tobacco use disorder Controlled type 2 diabetes mellitus without complication, without long-term current use of insulin (HCC)- Primary Munoz's esophagus with esophagitis Munoz's esophagus Tobacco dependence syndrome Tobacco use disorder Mixed hyperlipidemia Mixed hyperlipidemia Centrilobular emphysema (HCC) Other chronic pain Other insomnia Chronic constipation- Primary Unspecified constipation Mixed hyperlipidemia Mixed hyperlipidemia Controlled type 2 diabetes mellitus without complication, without long-term current use of insulin (HCC) DDD (degenerative disc disease), lumbar Degeneration of lumbar or lumbosacral intervertebral disc ETD (Eustachian tube dysfunction), left Controlled type 2 diabetes mellitus without complication, without long-term current use of insulin (HCC)- Primary Other thrombotic microangiopathy (HCC) Centrilobular emphysema (HCC) Munoz's esophagus with esophagitis Munoz's esophagus Degeneration of intervertebral disc of lumbar 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 Mixed hyperlipidemia Mixed hyperlipidemia Screening for lung cancer Cigarette nicotine dependence without complication Controlled type 2 diabetes mellitus without complication, without long-term current use of insulin (HCC)- Primary Centrilobular emphysema (HCC) Munoz's esophagus with esophagitis Munoz's esophagus Cigarette nicotine dependence without complication documented in this encounter [facility]Evaluation note* Diagnosis Controlled type 2 diabetes mellitus without complication, without long-term current use of insulin (HCC)- Primary DDD (degenerative disc disease), lumbar Degeneration of lumbar or lumbosacral intervertebral disc Centrilobular emphysema (HCC) Tobacco dependence syndrome Tobacco use disorder Controlled type 2 diabetes mellitus without complication, without long-term current use of insulin (HCC)- Primary Munoz's esophagus with esophagitis Munoz's esophagus Tobacco dependence syndrome Tobacco use disorder Mixed hyperlipidemia Mixed hyperlipidemia Centrilobular emphysema (HCC) Other chronic pain Other insomnia Chronic constipation- Primary Unspecified constipation Mixed hyperlipidemia Mixed hyperlipidemia Controlled type 2 diabetes mellitus without complication, without long-term current use of insulin (HCC) DDD (degenerative disc disease), lumbar Degeneration of lumbar or lumbosacral intervertebral disc ETD (Eustachian tube dysfunction), left Controlled type 2 diabetes mellitus without complication, without long-term current use of insulin (HCC)- Primary Other thrombotic microangiopathy (HCC) Centrilobular emphysema (HCC) Munoz's esophagus with esophagitis Munoz's esophagus Degeneration of intervertebral disc of lumbar 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 Mixed hyperlipidemia Mixed hyperlipidemia Screening for lung cancer Cigarette nicotine dependence without complication Controlled type 2 diabetes mellitus without complication, without long-term current use of insulin (HCC)- Primary Centrilobular emphysema (HCC) Munoz's esophagus with esophagitis Munoz's esophagus Cigarette nicotine dependence without complication Controlled type 2 diabetes mellitus without complication, without long-term current use of insulin (HCC) Degeneration of intervertebral disc of lumbar 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 documented in this encounter [facility] Summary Purpose Family History No Family History Records FoundNo Family History Records FoundNo Family History Records FoundNo Family History Records Found Advance Directives No Advanced Directives Records FoundNo Advanced Directives Records FoundNo Advanced Directives Records FoundNo Advanced Directives Records Found Additional Source Comments INFORMATION SOURCE (unrecogn ized section and content) DATE CREATED AUTHOR 06/21/2022 [facility] DATE CREATED AUTHOR AUTHOR'S ORGANIZ ATION 01/17/2024 [facility] DATE CREATED AUTHOR AUTHOR'S ORGANIZ ATION 08/12/2024 [facility] DATE CREATED AUTHOR AUTHOR'S ORGANIZ ATION 08/19/2024 [facility] Care Teams (unrecognized sec tion and content) 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 Relationship Specialty Start Date End Date Jim Deleon MD [address] [place] [phone] PCP - General Family Medicine 09/18/22 Gayla Martinez NP [address] [place] [phone] Referring Physician Nurse Practitioner 09/18/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 Relationship Specialty Start Date End Date Jim Deleon MD [address] [place] [address]10[address] PCP - General Family Medicine 09/18/22 Gayla Martinez NP [address] [place] [address]10[address] Referring Physician Nurse Practitioner 09/18/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 Relationship Specialty Start Date End Date Jim Deleon MD [address] [place] [address] PCP - General Family Medicine 04/26/23 Gayla Martinez NP [address] [place] [address] Referring Physician Nurse Practitioner 09/18/22 Gayla Martinez NP [address] [place] [address] Nurse Practitioner Family Medicine 04/26/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 Relationship Specialty Start Date End Date Jim Deleon MD [address] [place] [address] PCP - General Family Medicine 04/26/23 Gayla Martinez NP [address] [place] [address] Referring Physician Nurse Practitioner 09/18/22 Gayla Martinez NP [address] [place] [address] Nurse Practitioner Family Medicine 04/26/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 Relationship Specialty Start Date End Date Jim Deleon MD [address] [place] [address] PCP - General Family Medicine 04/26/23 Gayla Martinez NP [address] [place] [address] Referring Physician Nurse Practitioner 09/18/22 Gayla Martinez NP [address] [place] [address] Nurse Practitioner Family Medicine 04/26/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 Relationship Specialty Start Date End Date Jim Deleon MD [address] [place] [address] PCP - General Family Medicine 04/26/23 Gayla Martinez NP [address] [place] [address] Referring Physician Nurse Practitioner 09/18/22 Gayla Martinez NP [address] [place] [address]10[address] Nurse Practitioner Family Medicine 04/26/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 Relationship Specialty Start Date End Date Jim Deleon MD [address] [place] [address]10[address] PCP - General Family Medicine 04/26/23 Gayla Martinez NP [address] [place] [address] Referring Physician Nurse Practitioner 09/18/22 Gayla Martinez NP [address] [place] [address]10[address] Nurse Practitioner Family Medicine 04/26/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 Relationship Specialty Start Date End Date Jim Deleon MD [address] [place] [address]010[address] PCP - General Family Medicine 04/26/23 Gayla Martinez NP [address] [place] [address] Referring Physician Nurse Practitioner 09/18/22 Gayla Martinez NP [address] [place] [address]10[address] Nurse Practitioner Family Medicine 04/26/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 Relationship Specialty Start Date End Date Jim Deleon MD [address] [place] [phone] PCP - General Family Medicine 04/26/23 Gayla Martinez NP [address] [place] [address]10[address] Referring Physician Nurse Practitioner 09/18/22 Gayla Martinez NP [address] [place] [address]10[address] Nurse Practitioner Family Medicine 04/26/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 Relationship Specialty Start Date End Date Jim Deleon MD [address] [place] [address] PCP - General Family Medicine 04/26/23 Gayla Martinez NP [address] [place] [address] Referring Physician Nurse Practitioner 09/18/22 Gayla Martinez NP [address] [place] [address] Nurse Practitioner Family Medicine 04/26/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 Relationship Specialty Start Date End Date Jim Deleon MD [address] [place] [address] PCP - General Family Medicine 04/26/23 Gayla Martinez NP [address] [place] [address] Referring Physician Nurse Practitioner 09/18/22 Gayla Martinez NP [address] [place] [address] Nurse Practitioner Family Medicine 04/26/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 Relationship Specialty Start Date End Date Jim Deleon MD [address] [place] [address] PCP - General Family Medicine 04/26/23 Gayla Martinez NP [address] [place] [address] Referring Physician Nurse Practitioner 09/18/22 Gayla Martinez NP [address] [place] [address] Nurse Practitioner Family Medicine 04/26/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 Relationship Specialty Start Date End Date Jim Deleon MD [address] [place] [address] PCP - General Family Medicine 04/26/23 Gayla Martinez NP [address] [place] [address] Referring Physician Nurse Practitioner 09/18/22 Gayla Martinez NP [address] [place] [address] Nurse Practitioner Family Medicine 04/26/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 Relationship Specialty Start Date End Date Jim Deleon MD [address] [place] [phone] PCP - General Family Medicine 04/26/23 Gayla Martinez NP [address] [place] [address] Referring Physician Nurse Practitioner 09/18/22 Gayla Martinez NP [address] [place] [address]10[address] Nurse Practitioner Family Medicine 04/26/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 Relationship Specialty Start Date End Date Jim Deleon MD [address] [place] [address]31010[address] PCP - General Family Medicine 04/26/23 Gayla Martinez NP [address] [place] [address] Referring Physician Nurse Practitioner 09/18/22 Gayla Martinez NP [address] [place] [address] Nurse Practitioner Family Medicine 04/26/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 Relationship Specialty Start Date End Date Jim Deleon MD [address] [place] [address] PCP - General Family Medicine 04/26/23 Gayla Martinez NP [address] [place] [address] Referring Physician Nurse Practitioner 09/18/22 Gayla Martinez NP [address] [place] [address] Nurse Practitioner Family Medicine 04/26/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 Relationship Specialty Start Date End Date Jim Deleon MD [address] [place] [address] PCP - General Family Medicine 04/26/23 Gayla Martinez NP [address] [place] [address]10[address] Referring Physician Nurse Practitioner 09/18/22 Gayla Martinez NP [address] [place] [address] Nurse Practitioner Family Medicine 04/26/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 Relationship Specialty Start Date End Date Jim Deleon MD [address] [place] [address] PCP - General Family Medicine 04/26/23 Gayla Martinez NP [address] [place] [address] Referring Physician Nurse Practitioner 09/18/22 Gayla Martinez NP [address] [place] [address] Nurse Practitioner Family Medicine 04/26/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 Relationship Specialty Start Date End Date Jim Deleon MD [address] [place] [address] PCP - General Family Medicine 04/26/23 Gayla Martinez NP [address] [place] [address] Referring Physician Nurse Practitioner 09/18/22 Gayla Martinez NP [address] [place] [address] Nurse Practitioner Family Medicine 04/26/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 Relationship Specialty Start Date End Date Jim Deleon MD [address] [place] [address] PCP - General Family Medicine 04/26/23 Gayla Martinez NP [address] [place] [address] Referring Physician Nurse Practitioner 09/18/22 Gayla Martinez NP [address] [place] [phone] Nurse Practitioner Family Medicine 04/26/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 Relationship Specialty Start Date End Date Jim Deleon MD [address] [place] [phone] PCP - General Family Medicine 04/26/23 Gayla Martinez NP [address] [place] [address] Referring Physician Nurse Practitioner 09/18/22 Gayla Martinez NP [address] [place] [phone] Nurse Practitioner Family Medicine 04/26/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 Relationship Specialty Start Date End Date Jim Deleon MD [address] [place] [phone] PCP - General Family Medicine 04/26/23 Gayla Martinez NP [address] [place] [phone] Referring Physician Nurse Practitioner 09/18/22 Gayla Martinez NP [address] [place] [address] Nurse Practitioner Family Medicine 04/26/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 Relationship Specialty Start Date End Date Jim Deleon MD [address] [place] [phone] PCP - General Family Medicine 04/26/23 Gayla Martinez NP [address] [place] [phone] Referring Physician Nurse Practitioner 09/18/22 Gayla Martinez NP [address] [place] [address] Nurse Practitioner Family Medicine 04/26/23 Reason for Visit (unrecogniz ed section and content) Reason Onset Date Comments Med Refill 01/27/2024 Reason Onset Date Comments Med Refill 04/18/2024 Reason Comments Med Change Request Reason Onset Date Comments Med Refill 06/26/2024 Reason Comments Diabetes Reason Onset Date Comments Med Refill 10/16/2024 FOR RECORDS PERTAINING TO PATIENTS WHO ARE [...] BE BASED ON THE PRIMARY CLINICAL RECORDS. [employer] provides no warranty or guarantee of the accuracy or completeness of information in this document.
== END 2024-11-02 10:29 | disposition home or self-care (01) ==
LOC: PM 10:28
PROVIDERS: PCP Nurse Practitioner; Visit Provider Nurse Practitioner
DX: M96.1 Postlaminectomy syndrome, not elsewhere classified (principal); M46.1 Sacroiliitis, not elsewhere classified; Z79.891 Long term (current) use of opiate analgesic
CPT/HCPCS: G0463

== ENCOUNTER 2025-02-07 12:36 | Outpatient (OUT) | payer MEDICARE, SELFPAY ==
--- OUTSIDE RECORDS SUMMARY | 2025-02-07 12:41 | XMS_ITS | Patient Health Record ---
Author Organization [facility] [place] Address [address] [place] [address] Care Team Providers Care Harmonic Analyst Name Role Phone Gayla Martinez CNP Primary Care Provider Unavail able Reason For Referral No Information Plan Of Treatment No Information Insurance Providers Payer Name Payer Address Payer Phone Subscriber Number Group Number Insured Name Patient Relationship to Insured Coverage Start Date Coverage End Date [facility] MEDICAID [address] [place], [place] [id number] Margret López - patient is the [id number] 2022
--- OUTSIDE RECORDS SUMMARY | 2025-02-07 12:41 | XMS_ITS | Clinical Summary ---
Author Organization [facility] Address [address] [place] [address] Care Team Providers Care Dynamics Ax Consultant Name Role Phone Gayla Martinez SAWING AND ASSEMBLY SUPERVISOR Unavailable [phone] Jim Deleon MD Primary Care Provider [phone] Gayla Martinez SAWING AND ASSEMBLY SUPERVISOR Unavailable [phone] Allergies Active AllergyReactionsCriticalityNoted DateCommentsPregabalinHallucinations 01/19/2023 Medications MedicationSigDispense QuantityRefillsLast FilledStart DateEnd DateStatus tiZANidine (Zanaflex) 4 MG tablet Take 1 tablet by mouth every 12 (twelve) hours if needed for muscle spasms. Active Lancets misc 1 Device Daily as needed.Active traMADol (Ultram) 50 MG tablet Take 50 mg by mouth every 12 (twelve) hours if needed for severe pain or moderate painActive fluticasone (Flonase) 50 MCG/ACT nasal spray Indications:ETD (Eustachian tube dysfunction), leftAdminister 2 sprays into each nostril Daily Shake gently. Before first use, prime pump. After use, clean tip and replace cap. 16 g ctive loratadine (Claritin) 10 MG tablet Indications:ETD (Eustachian tube dysfunction), leftTake 1 tablet (10 mg) by mouth Daily 90 tablet ctive lisinopril 10 MG tablet Take 10 mg by mouth Daily01/14/2024ctive ASPIRIN 81 PO Take 81 mg by mouth DailyActive atorvastatin (Lipitor) 20 MG tablet Indications:Mixed hyperlipidemiaTake 1 tablet (20 mg) by mouth at bedtime 90 tablet 5Active albuterol HFA 90 mcg/act inhaler Indications:Centrilobular emphysema (HCC)Inhale 2 puffs every 6 (six) hours if needed for shortness of breath or wheezing 18 g 5Active omeprazole (PriLOSEC) [address] capsule Indications:Munoz's esophagus with esophagitisTake 1 capsule (40 mg) by mouth Daily 90 capsule 5Active Mmuehiabmdh-Gqfomymie-Ndumbi (Trelegy Ellipta) 100-62.5-25 MCG/ACT aerosol powder Indications:Centrilobular emphysema (HCC)Inhale 1 puff Daily Rinse mouth after use 180 each 5Active metFORMIN (Glucophage) 500 MG tablet Indications:Controlled type 2 diabetes mellitus without complication, without long-term current use of insulin (HCC)Take 1 tablet (500 mg) by mouth in the morning. Take with meals. 90 tablet 5Active Blood Glucose Monitoring Suppl (True Metrix Meter) w/Device kit Indications:Controlled type 2 diabetes mellitus without complication, without long-term current use of insulin (HCC)1 each Daily 1 kit Expired meloxicam (Mobic) 15 MG tablet Indications:Degeneration of intervertebral disc of lumbar 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Take 1 tablet (15 mg) by mouth Daily 90 tablet 5103/16/2024Expired Active Problems ProblemNoted DateDiagnosed DateImmune thrombocytopenic rtuouji3108/09/2024 Overview (08/09/2024): Previously Coded, ICD10: D69.3: IMMUNE THROMBOCYTOPENIC PURPURA, Assessed by [facility], on 2022-10-20 OAB (overactive bladder)5Cigarette nicotine dependence without kstpzyihxixi50/11/2025 Assessment & Plan (08/09/2024 1:58 PM EDT): The patient has been advised of the risks of continued smoking: stroke, NE, all forms of cancer, lung disease, and . Options for quitting smoking include: cold turkey, hypnosis, acupuncture, nicotine replacement meds(gum, lozenges, and patches), Buproprion, and Varenicline. At this time pt is encouraged to evaluate their goals for wanting to quit smoking, and reach out toprovider when ready to start this process Assessment & Plan (04/04/2024 5:15 PM EST): The patient has been advised of the risks of continued smoking: stroke, NE, all forms of cancer, lung disease, and . Options for quitting smoking include: cold turkey, hypnosis, acupuncture, nicotine replacement meds(gum, lozenges, and patches), Buproprion, and Varenicline. At this time pt is encouraged to evaluate their goals for wanting to quit smoking, and reach out toprovider when ready to start this process Screening for lung vwyyms1803/30/2024 Overview (04/20/2024): Low dose CT scan: 04/20/24 [...] importance of smoking cessation. Encounter for screening mammogram for malignant neoplasm of aopqso3612/06/2023 Encounter for well woman exam with routine gynecological exam12/06/2023Needs flu shot12/06/2023hronic vpbmcmrwtyqm03/04/2024 Assessment & Plan (07/27/2023 12:53 PM EDT): Life long condition UTD on colonoscopy Trial miralax Fu in 4 weeks ETD (Eustachian tube dysfunction), left4COPD with auwtrgqnm89/04/2024 Assessment & Plan (08/09/2024 1:57 PM EDT): Current meds: trelegy and prn albuterol Looks like utd approval for trelegy Assessment & Plan (04/04/2024 5:09 PM EST): Current meds: trelegy Will order rescue inhaler prn Assessment & Plan (04/26/2023 9:52 AM EST): Continue current meds Recommend quitting smoking Family history of coronary wxmyihouoksyphzc92/04/2024OPD with exacerbation 04/07/20232082Jtlzjwykvbvqxa14/23/2024 Assessment & Plan (04/04/2024 8:03 AM EST): Continue with statin Check labs yearly and prn dose changes Munoz's esophagus with zubizzvxdkg57/23/2024 Overview (04/26/2023): Fu scope in 2026 as [...] for fu scope in 2026 Other chronic pain02/08/2023Other lcjilswt03/18/2023DD (degenerative disc disease), acugym03/05/2022 Assessment & Plan (04/04/2024 8:03 AM EST): Continue with pain mgmt Assessment & Plan (07/27/2023 12:54 PM EDT): Continue with pain mgmt Assessment & Plan (01/25/2023 9:54 AM EST): Continue with pain mgmt for evaluation of this And treatment plan with them Controlled type 2 diabetes mellitus without complication, without long-term current use of vcewope3309/11/2011 Assessment & Plan (08/09/2024 1:44 PM EDT): Check blood sugars daily, notify if <70 or >200. Take medications (pills or insulin) as directed. Monitor for s/s of hypoglycemia (sweaty, dizziness, nausea, vomiting, or shakiness). Watch for increase in thirst, urination, or appetite. Inspect feet frequently monitoring for open wounds , andalso recommend yearly eye exam. Pt should attempt [...] feet frequently monitoring for open wounds , andalso recommend yearly eye exam. Pt should attempt [...] feet frequently monitoring for open wounds , andalso recommend yearly eye exam. Pt should attempt [...] feet frequently monitoring for open wounds , andalso recommend yearly eye exam. Pt should attempt to remain as physically active as chronic conditions allow, as well as trying to follow a diet low in carbohydrates, and simple sugars. Assessment & Plan (01/25/2023 9:55 AM EST): Check sugars daily, freq foot exams, yearly eye exams A1c is stable Fu in 3 months Resolved Problems ProblemNoted DateDiagnosed DateResolved DateFormer / Pericardial effusion ([facility])/07/2024Other thrombotic wifoxwgrqotmrrr58/04/202406/ Assessment & Plan (04/04/2024 5:10 PM EST): Has seen hematology for this Will have to see if ok to have ASA for DM Unintentional weight loss of more than 10 pounds in 90 days/07/2024 Influenza A02//4Centrilobular ignyqdaqy02/07/2024 Assessment & Plan (01/25/2023 9:54 AM EST): Recommend quitting smoking Update on flu shot and RSV Has trerosegy uses prn, recommend using this daily and rinse mouth after use Fu in 3 months Immunizations ImmunizationAdministration DatesNext DueInfluenza Whole11/20/2013,03/06/2013 Influenza, injectable, MDCK, preservative free, xoffxlwarfci37/14/2024, 2Pneumococcal Conjugate PCV neumococcal Polysaccharide GACH601303/23/2011Zoster, Ahhcmtvuxgq93/07/2024,08/12/2022 Family History Medical HistoryRelationNameCommentsDiabetesFatherHeart diseaseFatherHypertension FatherCancerMaternal GrandmotherHeart diseaseMaternal GrandmotherDiabetesMother Heart diseaseMotherMental illnessMotherMental illnessSisterRelationNameStatus CommentsBrother1 brotherFatherDeceasedMaternal GrandmotherMotherAliveSister1 sister Social History Tobacco UseTypesPacks/DayYears UsedDateSmoking Tobacco: Every DayCigarettes0.540 Smokeless Tobacco: Never Tobacco Cessation:Ready to Q uit: No; Counseling Given: Yes Alcohol UseStandard Drinks/WeekCommentsNever0 (1 standard drink = 0.6 oz pure alcohol)Social Connection and Isolation PanelAnswerDate RecordedIn a typical week, how many times do you talk on the phone with family, friends, or neighbors?More than three times a week04/19/2023How often do you get together with friends or relatives?Twice a week04/19/2023How often do you attend rastafari or mosque services?More than 4 times per year04/19/2023o you belong to any clubs or organizations such as rastafari groups, unions, fraternal or athletic diana ups, or school groups?Yes04/19/2023How often do you attend meetings of the clubs or organizations you belong to?More than 4 times per year04/19/2023re you , , , , never , or living with a partner? Manhjlz6204/19/2023UDIT-CAnswerDate RecordedQ1: How often do you have a drink containing alcohol?Never04/19/2023Q2: How many drinks containing alcohol do you have on a typical day when you are drinking?Patient does not drink04/19/2023Q3: How often do you have six or more drinks on one occasion?Never04/19/2023Overall Financial Resource Strain (CARDIA)AnswerDate RecordedHow hard is it for you to pay for the very basics like food, housing, medical care, and heating?Somewhat hard04/19/2023HQ-2AnswerDate RecordedPatient Health Questionnaire-2 Score0 04/26/2023FinDaviess [facility] - Occupational Stress QuestionnaireAnswerDate RecordedDo you feel stress - tense, restless, nervous, or anxious, or unable to sleep at night because yourmind is troubled all the time - these days?Patient /26/2024Exercise Vital SignAnswerDate RecordedOn average, how many days per week do you engage in moderate to strenuous exercise (like a brisk walk)?0 days04/19/2023Minutes of Exercise per SessionNot on file04/19/2023Hunger Vital SignAnswerDate RecordedWithin the past 12 months, you worried that your food would run out before you got the money to buymore.Patient viaxxwop94/26/2024Within the past 12 months, the food you bought just didn't last and you didn't have money to get more.Patient declined 04/19/2023RAPARE - TransportationAnswerDate RecordedIn the past 12 months, has lack of transportation kept you from medical appointments or from getting medications?No04/19/2023In the past 12 months, has lack of transportation kept you from meetings, work, or from getting things needed for daily living?No 04/19/2023Housing Stability Vital SignAnswerDate RecordedIn the last 12 months, was there a time when you were not able to pay the mortgage or rent on time?Yes 04/19/2023In the last 12 months, how many places have you lived?In the last 12 months, was there a time when you did not have a steady place to sleep or slept in hammondelter (including now)?No04/19/2023CommentsUnknown Sex and Gender InformationValueDate RecordedSex Assigned at BirthNot on file Legal OuaVknjpa19/15/2023 7:17 PM EDTGender IdentityNot on fileSexual OrientationNot on file Last Filed Vital Signs Vital SignReadingTime TakenCommentsBlood Ataupfam449/7806/ 1:30 PM EDT Jdliz9351 1:30 PM NMDAabbjanvkzy65.8 ??C (98.3 ??F)08/09/2024 1:30 PM EDTRespiratory Raic881208/09/2024 1:30 PM EDTOxygen Taiqbfzuqf42%08/09/2024 1:30 PM EDTInhaled Oxygen Concentration--Learwg44.4 kg (131 lb)08/09/2024 1:30 PM EDT Qhsbmu564.6 cm (5' 6 )12/06/2023 10:35 AM EDTBody Mass Index21.141 10:35 AM EDT Plan of Treatment Health MaintenanceDue DateLast DoneCommentsCT Lwblzpcnzyce1960FIT-DNA 1960FIT1960FOBT02/03/1260Jpdakumkrpwvg1960HPV/Dwyhnp3302/03/1990 COVID-19 Vaccine ( season)/09/2021, 06/21/2020, 05/24/2020Influenza Vaccine (#1)/, 01/06/2022, 11/20/2013, Additional history cxcmemLgpakedab59, 03/22/2024 (Patient Refused), 12/03/2022, Additional history aokvuuHjzycwyhxpu28, 04/20/2013Colorectal Cancer Rlqqxgnsf81/18/2027Cervical Cancer Screening 12/05/2026Pap Smear/neumococcal Vaccine: 65+ YearsCompleted 01/06/2022, 01/22/2012 Procedures Procedure NamePriorityDate/TimeAssociated DiagnosisCommentsMM TOMOSYNTHESIS SCREENING BI04/20/2024 3:55 PM EST WOLOXDYEOGMWqlirfd52/27/2014 12:00 PM EST from Last 3 Months or Most Recently Relevant to Health Maintenance Results * MM TOMOSYNTHESIS SCREENING BI (04/20/2024 3:55 PM EST)Anatomical Region LateralityModalityOtherSpecimen (Source)Anatomical Location / Laterality Collection Method / VolumeCollection TimeReceived Time04/20/2024 3:55 PM EST Narrative 04/20/2024 3:56 PM EST [facility] ?[address] ? [place] [address] ? Mammography Report ? Signed ? Patient: YOUNG,STEPHAN C ?MR#: [id number] ?? : 1960 ?Acct:[id number] ?? Age/Sex: 64 / F ?ADM Date: 04/20/24 ?? Loc: CT ? Attending Dr: Gayla Martinez SAWING AND ASSEMBLY SUPERVISOR ? Ordering Physician: Gayla Martinez SAWING AND ASSEMBLY SUPERVISOR ?Results: ? Date of Service: 04/20/24 ?Follow Up: ? Procedure(s): MM tomosynthesis screening BI ?? Accession Number(s): [id number] ? cc: Gayla Martinez SAWING AND ASSEMBLY SUPERVISOR ? Patient Name: ? STEPHAN LÓPEZ ? MR#: [id number] ? : 1960 ? Exam Date: 04/20/2024 ?? Ordering Doctor: GAURAV Martinez CNP ? RADIOLOGY REPORT ? PROCEDURE: ? MM TOMOSYNTHESIS SCREENING BI ? COMPARISON: ? MM TOMOSYNTHESIS SCREENING BI, 12/03/2022. ? INDICATIONS: ? Screening ? Calculator Name ? NCI Breast Cancer Risk Assessment Tool ?? 5 Year Breast Cancer Risk ? 1.80% ?? Lifetime Breast Cancer Risk ? 7.20% ?? Personal Breast Cancer ?No ?? Personal Ovarian Cancer ? No ?? Treatments ? None ?? Family Cancers ? None ? LOCATION: ? [facility] ? BREAST COMPOSITION: ? There are scattered areas of fibroglandular density. ? FINDINGS: ? DIAGNOSTIC CATEGORY 1--NEGATIVE. ? RIGHT BREAST: ??No significant suspicious finding. ? LEFT BREAST: ??No significant suspicious finding. ? RECOMMENDATIONS: ? ROUTINE MAMMOGRAM AND CLINICAL EVALUATION IN 12 MONTHS. ? PLEASE NOTE: ??A NORMAL MAMMOGRAM DOES NOT EXCLUDE THE POSSIBILITY OF BREAST ?? CANCER. ??A CLINICALLY SUSPICIOUS PALPABLE LUMP SHOULD BE BIOPSIED. ? Dictated by: Ronen Montgomery DO on 04/20/2024 at 15:51 ? Approved by: Ronen Montgomery DO on 04/20/2024 at 15:55 ? Dictated By: ?Ronen Montgomery M.D. ? Signed By: ?04/20/24 1556 ? DD/ 1555 ? TD/TT: ? Roller Man: Procedure Note Radiology, Radiologist, MD - 04/20/2024 [place] [address] Mammography Report Signed Patient: STEPHAN LÓPEZ CMR#: [id number] : 1960Acct:[id number] Age/Sex: 64 / FADM Date: 04/20/24 Loc: CT Attending Dr: Gayla Martinez NP Ordering Physician: Gayla Martinez NPResults: Date of Service: 04/20/24Follow Up: Procedure(s): MM tomosynthesis screening BI Accession Number(s): [id number] cc: Gayla Martinez NP Patient Name: STEPHAN LÓPEZ MR#: [id number] : 1960 Exam Date: 04/20/2024 Ordering Doctor: GAURAV Martinez CNP RADIOLOGY REPORT PROCEDURE: MM TOMOSYNTHESIS SCREENING BI COMPARISON: MM TOMOSYNTHESIS SCREENING BI, 12/03/2022. INDICATIONS: Screening Calculator Name NCI Breast Cancer Risk Assessment Tool 5 Year Breast Cancer Risk 1.80% Lifetime Breast Cancer Risk 7.20% Personal Breast Cancer No Personal Ovarian Cancer No Treatments None Family Cancers None LOCATION: [facility] BREAST COMPOSITION: There are scattered areas of [...] M.D. Signed By:04/20/24 1556 DD/ 1555 TD/TT: Roller Man: Authorizing ProviderResult TypeResult Anastasia Martinez NPCLINISYNC IMAGING Final Result * Colonoscopy (04/20/2013 12:00 PM EST)Anatomical RegionLateralityModality EndoscopySpecimen (Source)Anatomical Location / LateralityCollection Method / VolumeCollection TimeReceived Time04/20/2013 12:00 PM EST Narrative 04/20/2013 12:00 PM EST PERFORMED AT [facility] LOCATION:[id number] Normal Procedure Note CONVERSION, GENERIC - 07/09/2022 PERFORMED AT [facility] LOCATION:[id number] Normal Authorizing ProviderResult TypeResult Mj Dee MDENDOSCOPY PROCEDURE ORDERABLESFinal Result from Last 3 Months or Most Recently Relevant to Health Maintenance Insurance Care Teams Team MemberRelationshipSpecialtyStart DateEnd Date Jim Deleon MD PCP - GeneralFamily Medicine04/26/23 Gayla Martinez NP Referring PhysicianNurse Practitioner09/18/22 Gayla Martinez NP Nurse Pract[facility]erU[facility] Medicine04/26/23
--- OUTSIDE RECORDS SUMMARY | 2025-02-07 12:41 | XMS_ITS | Clinical Summary ---
Author Organization [facility] Address [address] [place] [address] Care Team Providers Care Histotechnologist Name Role Phone Gayla Martinez MD Primary Care Provider [phone] Allergies Active AllergyReactionsCriticalityNoted DateCommentsPregabalinHallucinations 01/19/2023 Medications MedicationSigDispense QuantityRefillsLast FilledStart DateEnd DateStatus atorvastatin (Lipitor) 20 mg tablet Take 20 mg by mouth at bedtime.Active metFORMIN (Glucophage) 500 mg tablet Take 500 mg by mouth with breakfast.Active omeprazole (PriLOSEC) [address] capsule Take 40 mg by mouth before breakfast. Do not crush or chew.Active Trelegy Ellipta 100-62.5-25 mcg blister with device inhale 1 puff by mouth and INTO THE LUNGS once daily Rinse mouth after use 12/30/2021ctive tiZANidine (Zanaflex) 4 mg tablet Take 4 mg by mouth if needed each day.03/25/2021ctive amitriptyline (Elavil) 25 mg tablet 01/15/2023ctive lisinopril 5 mg tablet Indications:Benign essential HTNTake 1 tablet (5 mg) by mouth in the morning. 90 tablet ctive meloxicam (Mobic) 15 mg tablet Take 15 mg by mouth in the morning.12/28/2023ctive traMADol (Ultram) 50 mg tablet Take 50 mg by mouth in the morning.Active lisinopril 10 mg tablet Indications:Benign hypertensive heart disease without congestive heart failure Take 1 tablet (10 mg) by mouth once daily as directed. 90 tablet ctive Active Problems ProblemNoted DateDiagnosed DateEncounter for screening mammogram for malignant neoplasm of /14/2024Needs flu shot12/06/2023hronic constipation 07/27/2023ETD (Eustachian tube dysfunction), left07/27/2023Family history of coronary iyjklaemlyitwyxm26/04/2024Idiopathic thrombotic thrombocytopenic cuopvcs7504/26/2023Unintentional weight loss of more than 10 pounds in 90 days 04/26/2023arrett's esophagus with yobktkcffsn40/23/2024 Overview (01/14/2024): Fu scope in 2026 as well as colonoscopy Ctusjowdwcsuxv19/23/2024Other chronic pain02/08/2023Other lbydsrhi93/18/2023 Centrilobular zegrjgeal54/04/2023DD (degenerative disc disease), lumbar 01/25/2023Tobacco dependence mypbyujh64/01/2023Diabetes 1.5, managed as type 2 06/10/2022 Assessment & Plan (06/10/2022 2:15 PM EDT): F/U with PCP Pericardial qsiiiezw79/19/2023 Assessment & Plan (07/03/2022 9:40 AM EDT): No concerning symptoms Assessment & Plan (06/10/2022 2:13 PM EDT): Recent echo with noted trivial effusion. No recent illness or any concerning symptoms Benign essential HTN06/10/2022 Assessment & Plan (07/03/2022 9:39 AM EDT): [...] dry persistent cough Spinal stenosis of lumbar kxydaj8904/30/2021 Overview (06/10/2022): Added automatically from request for surgery [id number] Disorder of zaylth2804/01/2021Lumbar afsjzbgf30/08/2022Lumbar spondylosis 04/01/2021ontrolled type 2 diabetes mellitus without complication, without long-term current use of rdfhajz8609/11/2011 Family History Medical HistoryRelationNameCommentsHeart attackFathercabgFathercerbral embolism FatherpacemakerMaternal GrandmotherpacemakerMotherRelationNameStatusComments FatherMaternal GrandmotherMother Social History Tobacco UseTypesPacks/DayYears UsedDateSmoking Tobacco: Every DayCigarettes Smokeless Tobacco: Never Tobacco Cessation:Ready to Q uit: Not Asked; Counseling Given: Not Answered Alcohol UseStandard Drinks/WeekCommentsNot Currently0 (1 standard drink = 0.6 oz pure alcohol)MD Safety & EnvironmentAnswerDate RecordedFear of Current or Ex-PartnerNot on file04/15/2023Emotionally AbusedNot on file04/15/2023hysically AbusedNot on file04/15/2023Sexually AbusedNot on file04/15/2023hysically or Sexually AbusedNot on file04/15/2023CommentsUnknownSex and Gender InformationValueDate RecordedSex Assigned at WraunFsxttg35/16/2023 1:34 AM EST Legal VqrXdrpkp68/30/2022 12:44 AM EDTGender JzxxqkdpOmiruv23/16/2023 1:34 AM ESTSexual OrientationHeterosexual or Spikuccx13/16/2023 1:34 AM EST Last Filed Vital Signs Vital SignReadingTime TakenCommentsBlood Yxegxsmz182/8801/14/2024 9:32 AM EST Uddpk047701/14/2024 9:32 AM ESTTemperature--Respiratory Rate--Oxygen Twbwagazyc80% 01/14/2024 9:32 AM ESTInhaled Oxygen Concentration--Olasuj74.8 kg (134 lb) 01/14/2024 9:32 AM ATJUcgduy896.6 cm (5' 6 )01/14/2024 9:32 AM ESTBody Mass Index21.6301/14/2024 9:32 AM EST Plan of Treatment Health MaintenanceDue DateLast DoneCommentsCT Drlanzatrilr1960Diabetes: Hemoglobin A1C1960FIT-DNA1960FIT1960FOBT1960Medicare Initial Physical (IPPE)1960 5974Sseelnnkdvdqp1960Diabetes: Retinopathy Dogfnknhb89/13/1970Depression Cpdpjzjsz69/13/1972Pap Smear02/03/1981Adult Olxdgtm7102/03/1982Cervical Cancer Paglahbsh78/13/1990HPV/Mbobuz3502/03/1990 Mubwgubce45/13/5100Frvruywblom72/27/202402/Colorectal Cancer Screening 4Diabetes: Urine Protein Gxflpdukv82/3COVID-19 Vaccine ( season)/09/2021, 06/21/2020, 05/24/2020Influenza Vaccine (#1)/, 12/06/2023, 01/06/2022, Additional history existsFall Risk Mcpyyhisy37/13/2025Pneumococcal Vaccine: 50+ YearsCompleted 01/06/2022, 01/22/2012Zoster MzfjskjoFukcrvdtv94/07/2024, 08/12/2022HIB Vaccines Aged OutNo longer eligible based on patient's age to complete this topicHPV VaccinesAged OutNo longer eligible based on patient's age to complete this topic IPV VaccinesAged OutNo longer eligible based on patient's age to complete this topicMeningococcal B VaccineAged OutNo longer eligible based on patient's age to complete this topicMeningococcal VaccineAged OutNo longer eligible based on patient's age to complete this topicRotavirus VaccinesAged OutNo longer eligible based on patient's age to complete this topic Insurance Care Teams Team MemberRelationshipSpecialtyStart DateEnd Date Gayla Martinez MD [address] [place] [address] [facility] - General10/29/21
--- OUTSIDE RECORDS SUMMARY | 2025-02-07 12:41 | XMS_ITS | Patient Health Record ---
Author Organization [facility] Address [address] [place], [place] [id number] Care Team Providers Care Composite Technician Name Role Phone Maria C Castanon Unavailable [phone] Reason For Referral No Information Plan Of Treatment No Information Insurance Providers Payer Name Payer Address Payer Phone Subscriber Number Group Number Insured Name Patient Relationship to Insured Coverage Start Date Coverage End Date [facility] [address] [place] [address] [id number] Margret López - patient is the [id number] 2024DMedicaid CFC [facility] [address] [place], [place] [id number], AndreaSelf - patient is the [id number] 2024
--- OUTSIDE RECORDS SUMMARY | 2025-02-07 12:41 | XMS_ITS | Clinical Summary ---
Author Organization [facility] s tem Address [id number] [place] [address] Care Team Providers Care Insecticide Sprayer Name Role Phone Michelle Gayla Calhoun APRN-FINISHER HAND Primary Care Provider Allergies No known active allergies Medications MedicationSigDispense QuantityRefillsLast FilledStart DateEnd DateStatus metFORMIN (GLUCOPHAGE) 500 mg tablet Take 1 tablet (500 mg total) by mouth in the morning.03/26/2021ctive simvastatin (ZOCOR) 10 mg tablet Take 1 tablet (10 mg total) by mouth once daily.Active TRUE METRIX GLUCOSE TEST STRIP strip 1 strip by other route daily.08/18/2021ctive omeprazole (PriLOSEC) 40 mg capsule Take 1 capsule (40 mg total) by mouth in the morning. 30 capsule ctive Additional Information Patient not taking.Reported on 10/28/2022 atorvastatin (LIPITOR) 20 mg tablet Take 1 tablet (20 mg total) by mouth in the morning.01/28/2022ctive TRELEGY ELLIPTA 100-62.5-25 mcg blister with device inhale 1 puff by mouth and INTO THE LUNGS once daily Rinse mouth after use 01/28/2022ctive magnesium hydroxide (MILK OF MAGNESIA) 400 mg/5 mL suspension Take 30 mL by mouth in the morning.Active lisinopriL (PRINIVIL,ZESTRIL) 2.5 mg tablet Take 1 tablet (2.5 mg total) by mouth in the morning.07/03/2022ctive tiZANidine (ZANAFLEX) 4 mg tablet Take 1 tablet (4 mg total) by mouth as needed for muscle spasms. 30 tablet ctive acetaminophen-codeine (TYLENOL #3) 300-30 mg per tablet Take 1 tablet by mouth every 8 (eight) hours as needed.10/15/2022ctive VITAMIN C 500 mg tablet,chewable CHEW AND SWALLOW 1 TABLET EVERY 8 HOURS08/24/2022ctive FeroSuL 325 mg (65 mg iron) tablet Take 1 tablet (325 mg total) by mouth in the morning and 1 tablet (325 mg total) in the evening. Take with meals.10/15/2022ctive CENTRUM SILVER WOMEN 8 mg iron-400 mcg-50 mcg tablet take 1 tablet by mouth once daily08/26/2022ctive Active Problems ProblemNoted DateDiagnosed DateSpinal stenosis of lumbar qdczaa1704/30/2021 Overview (04/30/2021): Added automatically from request for surgery [id number] Disorder of sfyyyt1304/01/2021Lumbar rgrmfikl70/08/2022Lumbar spondylosis 04/01/2021 Family History Medical HistoryRelationNameCommentsDiabetesFatherWm LoudenslagerDeceasedHeart diseaseFatherWm LoudenslagerDepressionMotherBreast cancerNeg HxRelationName StatusCommentsFatherWm LoudenslagerDeceasedMotherAlive Social History Tobacco UseTypesPacks/DayYears UsedDateSmoking Tobacco: Every PayThgrovymzz019 Smokeless Tobacco: Never Tobacco Cessation:Ready to Q uit: Not Asked; Counseling Given: Not Answered Alcohol UseStandard Drinks/WeekCommentsNot Currently0 (1 standard drink = 0.6 oz pure alcohol)ChildcareAnswerDate UzcmgdvqYveusbopjTmnwesc55/12/2019Employment AnswerDate HolcmzwsYpfokfdjkkImhmgpd89/12/2019Hunger ScreeningAnswerDate RecordedWithin the past 12 months we worried whether our food would run out before we got money to buy more.Never True10/28/2022Within the past 12 months the food we bought just didn't last and we didn't have money to get more.Never True10/28/2022CommentsNoSex and Gender InformationValueDate RecordedSex Assigned at BirthNot on fileLegal RmzOzilkq32/06/2015 12:01 PM EDTGender IdentityNot on fileSexual OrientationNot on file Last Filed Vital Signs Vital SignReadingTime TakenCommentsBlood Bamnqybm344/85010/28/2022 8:55 AM EDT Qpqro048310/28/2022 8:55 AM GFKXziudzprtwl76.8 ??C (98.3 ??F)12/26/2021 10:24 AM EDTRespiratory Yhaq093610/28/2022 8:55 AM EDTOxygen Rqocxfbqyw161%07/14/2022 9:28 AM EDTInhaled Oxygen Concentration--Pepphy96 kg (139 lb)10/28/2022 8:55 AM EDT Lijeia795.6 cm (5' 6 )10/28/2022 8:55 AM EDTBody Mass Index22.44010/28/2022 8:55 AM EDT Plan of Treatment Health MaintenanceDue DateLast DoneCommentsDepression Eubynmyat86/13/1972Tobacco Cvlurwihr25/13/1972DTaP,Tdap and Td Vaccines (1 - Tdap)02/03/1979Pap Smear 02/03/1981Zoster (Shingles) Vaccine (2 of 2)306/3Adult BMI Rhegspowh93/OVID-19 Vaccine ( - 2024- season)2024 12/30/2021, 06/21/2020, 05/24/2020Influenza Bfmznbj16/, 11/20/2013, 03/06/20137621Cxmyvlkkzji16/18/202707/, 09/08/2021, 04/20/2013RSV ( or age 60+ yrs) (1 - 1-dose 75+ series)02/03/2035 Medical Devices Not on file Procedures Procedure NamePriorityDate/TimeAssociated DiagnosisCommentsPROVATION COLONOSCOPY Ztequlp4109/08/2021 7:00 AM EDT from Last 3 Months or Most Recently Relevant to Health Maintenance Results * Colonoscopy Report (09/08/2021 7:00 AM EDT)Specimen (Source)Anatomical Location / LateralityCollection Method / VolumeCollection TimeReceived Time Narrative SYSTEMGENERATED, DOCUMENTATION - 09/08/2021 7:00 AM EDT This order has been auto-finalized for image and report archival in PACs. *For full report details, please reach out to your physician. ??Effective 07/09/20 this image will be visible to you in MyChart.* Authorizing ProviderResult TypeResult StatusMichael E Grillis DOIMG OR IMG ORDERABLESFinal Result from Last 3 Months or Most Recently Relevant to Health Maintenance Insurance Care Teams Team MemberRelationshipSpecialtyStart DateEnd Date Gayla Martinez APRN-FINISHER HAND PCP - GeneralNurse Practitioner04/01/21
--- NOTE | 2025-02-07 13:10 | PM.CN ---
Consult Note: HPI Data of Consult Patient: known to practice within the last 3 years Consult date: 11/02/24 Requesting Physician: Gwendolyn Salamanca NP Primary Care Provider: Gayla Martinez NP Consult Narrative Reason for consult: f/u Narrative: Stpehan muniz pleasant 65 year old female presents for evaluation and management of chronic back pain. Today pain 8/10 in low back and hips. Patient has a hx of L3,4,5 fusion. Patient has found mild benefit to current medication regimen, no side effects. Patient continues to have moderate to severe pain that is severely impacting functional ability, DIONNA 38%. denies fall/injury since last visit. cc:: CC: Gwendolyn Salamanca NP [facility] Medical History Low back pain ?M54.50 - Low back pain, unspecified (ICD-10) Osteoarthritis ?M19.90 - Unspecified osteoarthritis, unspecified site (ICD-10) Diabetes ?E11.9 - Type 2 diabetes mellitus without complications (ICD-10) COPD (chronic obstructive pulmonary disease) ?J44.9 - Chronic obstructive pulmonary disease, unspecified (ICD-10) Smoker ?F17.200 - Nicotine dependence, unspecified, uncomplicated (ICD-10) Hypertension ?I10 - Essential (primary) hypertension (ICD-10) Surgical History S/P surgical removal of pilonidal cyst ?Z98.890 - Other specified postprocedural states (ICD-10) H/O lumbosacral spine surgery ?Z98.890 - Other specified postprocedural states (ICD-10) Meds Home Medications and Allergies Home Medications ?Medication ?Instructions ?Recorded ?Confirmed ?Type amitriptyline 10 mg tablet 25 mg PO DAILY 11/23/22 11/22/23 History atorvastatin 20 mg tablet 20 mg PO DAILY 11/23/22 11/22/23 History ferrous sulfate 325 mg (65 mg 325 mg PO DAILY 11/23/22 11/22/23 History iron) tablet (FeroSul) fluticasone fur. 100 mcg-umeclid 1 inh inhalation DAILY 11/23/22 11/22/23 History 62.5 mcg-vilant 25 mcg inhalat.powder (Trelegy Ellipta) lisinopril 2.5 mg tablet 2.5 mg PO DAILY 11/23/22 11/22/23 History metformin 500 mg tablet 500 mg PO BID 11/23/22 11/22/23 History meloxicam 15 mg tablet 15 mg PO DAILY 04/15/23 11/22/23 History naloxone 4 mg/actuation nasal 4 mg intranasal Q3M PRN opioid 05/19/23 11/22/23 Rx spray (Narcan) overdose #2 ea fluticasone propionate 50 intranasal 08/30/23 History mcg/actuation nasal spray,suspension loratadine 10 mg tablet 10 mg PO DAILY 08/30/23 11/22/23 History tizanidine 4 mg capsule 4 mg PO QDAY PRN muscle spasticity 10/04/23 11/22/23 Rx #30 caps tramadol 50 mg tablet 50 mg PO DAILY PRN pain, 11/02/24 Rx moderate-severe #30 tabs tramadol 50 mg tablet 50 mg PO DAILY #30 tabs 12/07/24 Rx tramadol 50 mg tablet 50 mg PO DAILY PRN pain #30 tabs 12/07/24 Rx Allergies Allergy/AdvReac Type Severity Reaction Status Date / Time No Known Drug Allergies Allergy Verified 11/22/23 08:12 Exam Constitutional Documenting provider has reviewed patient's vital signs: yes Common normals: no apparent distress, oriented x3 and alert General appearance: cooperative HENMI Common normals: normocephalic, hearing grossly normal bilaterally and moist oral mucous membranes Head and scalp: normocephalic Eye Common normals: PERRL Pupil: PERRL Neck & C-Spine Common normals: full ROM General: normal visual inspection Chest Common normals: inspection of chest normal Respiratory Common normals: normal respiratory effort, no retractions and no use of accessory muscles Back & Pelvis Lumbar spine/lower back: ROM limited, pain with ROM, lumbar spinal tenderness and straight leg raise negative bilaterally Other: facet loading bilateral strength 5/5 in BLE Extremity Common normals: normal to inspection and full ROM Neuro Common normals: oriented x3 Sensorium/orientation: alert Gait (neuro): antalgic and assistive device used cane Motor exam: strength 5/5 throughout and no movement abnormalities noted Psych Common normals: mental status grossly normal, thought process normal, cooperative, affect normal, speech normal and activity/motor behavior normal Speech: normal speech Thought process: normal thought process Results Additional Findings Additional findings: If on a controlled substance or opioids, I have checked an [place]AR[place] report on this patient and there are no aberrancies noted in the prescribing history.??If on a controlled substance or opioid a drug screen was completed and reviewed within the last year, and if there has not been a drug screen completed we ordered one today to monitor higher risk, state monitored pain medication use. As part of providing excellent, safe, comprehensive care, the following was completed at our patient's visit: 1. A medication reconciliation and review to ensure accurate knowledge of current/active medications, including asking our patients to inform us about any zbzy-fkf-cudipyq medications or herbal remedies/nutritional supplements/alternative remedies. 2. A review to specifically ensure our patients have had annual screening for screening for depression, screening for tobacco use, and screening for unhealthy alcohol use. For concerning screenings had a discussion with the patient, provided patient education, and recommended follow-up with primary care provider when appropriate. If patient noted with a risk of falling, they received education on strength, gait, and balance training to prevent future risk of falling. Portions of this note may have been carried over from the previous visit and updated as appropriate. Please note this office utilizes paper charting in addition to the electronic medical record. A list of current medications, vitals, and PMH is available there as the clinical staff outside of myself do not have access to [employer] charting during the clinic day operations. As part of providing quality comprehensive care the current medications, vitals, and PMH were reviewed in the paper chart. Assessment and Plan Assessment and Plan (1) Failed back syndrome: (2) Sacroiliitis: (3) Chronic prescription opiate use: Assessment and Plan: I feel these medications are improving the patient's quality of life and allow them to tolerate activities of daily living as well as participate in recreational activity.? The patient does not report intolerable side effects. The patient is NOT opioid naive and non-pharmacologic and non-opioid treatment has failed to significantly relieve the patient's pain and improve functionality. The patient has a diagnosis that is related to a somatic or visceral pain etiology. ? ?? I reviewed with the patient the potential risks and side effects with the use of? opioid medications including but not limited to respiratory depression,? sedation, and even . Within the last 12 months I have verified the patient has access to naloxone should? these effects occur. The patient was advised to let? their family know they had Naloxone in case they would need to administer? the medication. I advised the patient to avoid the use of any other? sedation substances including alcohol, THC, and benzodiazepines while? taking opioid medications due to the risk of compounding side effects and? detrimental outcomes. within the last 12 months I have reviewed the [employer], pain treatment agreement and urine drug screen.? ?? A drug screen was completed within the last year, and no aberrancies were noted regarding their use of controlled substances. The patient understands they are subject to the terms and conditions of the pain contract that they have signed. ? ?? I have checked an OAR[place] report on this patient today and there are no aberrancies noted in the prescribing history.? Plan refill/continue tramadol 50mg daily prn moderate to severe pain update narcan script continue tizanidine 4-8mg bid prn pain/spasms f/u 3 months for medication management, sooner if needed
== END 2025-02-07 12:37 | disposition home or self-care (01) ==
PROVIDERS: PCP Nurse Practitioner; Visit Provider Nurse Practitioner
DX: M96.1 Postlaminectomy syndrome, not elsewhere classified (principal); M46.1 Sacroiliitis, not elsewhere classified; Z79.891 Long term (current) use of opiate analgesic
CPT/HCPCS: G0463